=== PATIENT | female | born 1970 | race Caucasian/White ===

== ENCOUNTER 2021-11-22 15:53 | Outpatient (CLI) | payer OTHER, MEDICAID, SELFPAY ==
[2021-11-22 21:34] LABS: Albumin* 4.4 g/dL (3.3-5.0); Chloride* 103 mmol/L (96-114); Sodium* 140 mmol/L (135-149)
[2021-11-22 21:37] LABS: Alkaline Phosphatase* 62 U/L (40-150); Aspartate Amino Transferase* 23 U/L (12-35); Bilirubin Total* 0.3 mg/dL (0.1-1.5); Blood Urea Nitrogen* 13 mg/dL (7-30); Carbon Dioxide* 30 mmol/L (20-32); Creatinine* 0.9 mg/dL (0.5-1.5); Estimated Glomerular Filt Rate 77 ml/min; Glucose* 110 mg/dL (60-115); Total Protein* 7.3 g/dL (6.0-8.3)
[2021-11-22 21:38] LABS: Alanine Aminotransferase* 23 U/L (4-35); Calcium* 9.7 mg/dL (8.4-10.6)
== END 2021-11-22 15:54 | disposition home or self-care (01) ==
LOC: LKVREF 15:54
PROVIDERS: PCP Physician Assistant Medical; Visit Provider Physician Assistant Medical
DX: E11.9 Type 2 diabetes mellitus without complications (principal); M79.7 Fibromyalgia; M62.838 Other muscle spasm; R10.9 Unspecified abdominal pain; F41.9 Anxiety disorder, unspecified
CPT/HCPCS: 80053; 87086

== ENCOUNTER 2022-02-06 08:51 | Outpatient (CLI) | payer OTHER, MEDICAID, SELFPAY ==
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
--- OUTSIDE RECORDS SUMMARY | 2022-02-06 08:54 | XMS_ITS | Encounter Summary ---
:1970 Author Organization [place] Address [address] [place] [address] Care Team Providers Name Role Phone Lyndsey Guzman MD Primary Care Provider Carine Smallwood MD Unavailable Encounter Details Date Type Department Care Team Description 10/05/2020 Travel Social History Tobacco Use Types Packs/Day Years Used Date Smoking Tobacco: Every Day Cigarettes 1 10 Smokeless Tobacco: Never Alcohol Use Standard Drinks/Week Comments Yes 0 (1 standard drink = 0.6 oz pure alcoho l) Social drink/monthly Sex Assigned at Date Recorded Not on file COVID-19 Exposure Response Date Recorded In the last month, have you been in contact with No / Unsure 10/05/2020 9:13 AM CDT someone who was confirmed or suspected to have Coronavirus / COVID-19? documented as of this encounter Plan of Treatment Not on filedocumented as of this encounter Visit Diagnoses Not on filedocumented in this encounter Care Teams Cleat Thrower Relationship Specialty Start Date End Date Lyndsey Guzman MD PCP - General Family Medicine 08/28/20 [facility] [address] [place] [address] Carine Smallwood MD Assigned Surgical Provider 09/17/20 [address] [facility] [address] [place] [address] documented as of this encounter
--- OUTSIDE RECORDS SUMMARY | 2022-02-06 08:54 | XMS_ITS | Encounter Summary ---
:1970 Author Organization [place] Address [address] [place] [address] Care Team Providers Name Role Phone Lyndsey Guzman MD Primary Care Provider Carine Smallwood MD Unavailable Encounter Details Date Type Department Care Team Description 10/13/2020 Travel Social History Tobacco Use Types Packs/Day [...] been in contact with No / Unsure 10/13/2020 12:53 PM CDT someone who was confirmed or suspected to have Coronavirus / COVID-19? documented as of this encounter Plan of Treatment Not on filedocumented as of this encounter Visit Diagnoses Not on filedocumented in this encounter Care Teams Credit Rating Checker Relationship Specialty Start Date End Date Lyndsey Guzman MD PCP - General Family Medicine 08/28/20 [facility] [address] [place] [address] Carine Smallwood MD Assigned Surgical Provider 09/17/20 [address] [facility] [address] [place] [address] documented as of this encounter
--- OUTSIDE RECORDS SUMMARY | 2022-02-06 08:54 | XMS_ITS | Encounter Summary ---
:1970 Author Organization [place] Address [address] [place] [address] Care Team Providers Name Role Phone Lyndsey Guzman MD Primary Care Provider Carine Smallwood MD Unavailable Reason for Visit Reason Comments Post-Op - General Surgery s/p Left thyroid lobectomy, autotransplant of L inferior parathyroid 10/09/20 Encounter Details Date Type Department Care Team Description 10/13/2020 Office Visit [facility] Vee Levy Surgical [facility] MAGALY White visit (Primary Dx) [place] [address] [facility] [address] [facility] [address] [place], [place] [address] [phone] Social History Tobacco Use Types Packs/Day Years Used Date Smoking Tobacco: Every Day Cigarettes 1 10 Smokeless Tobacco: Never Tobacco Cessation: Counseling Given: Yes Alcohol Use Standard Drinks/Week Comments Yes 0 [...] / COVID-19? documented as of this encounter Last Filed Vital Signs Vital Sign Reading Time Taken Comments Blood Pressure 128/88 10/13/2020 12:56 PM CDT Pulse 82 10/13/2020 12:56 PM CDT Temperature - - Respiratory Rate 16 10/13/2020 12:56 PM CDT Oxygen Saturation 96% 10/13/2020 12:56 PM CDT Inhaled Oxygen Concentration - - Weight - - Height - - Body Mass Index - - documented in this encounter Progress Notes Vee Levy PA-C - 10/13/2020 1:00 PM CDT 10/13/2020 [facility] Subjective: Aileen Sloan is here for evaluation of surgical site swelling. She underwent left??thyroid lobectomy with autotransplant of left inferior parathyroid gland by Dr. Smallwood on 10/09/20. She reportsnoticing swelling at the left aspect of her incision yesterday. She states the swelling has increased today and migrated toward the central/right aspect of the incision. She denies any redness or drainage. She denies any difficulty breathing. Her surgical site is tender but not painful, and she is nottaking narcotics. She is not particularly concerned about the swelling, but her mother advised that she be evaluated for possible infection before the weekend. The patient also has been experiencing sore throat and general not feeling well since preop, denies worsening since surgery. Objective: Neck incision: + healing yellow ecchymosis surrounding incision, no erythema. Incision is clean, dry, well-approximated. There is a rope-shaped soft swelling along incision, + mildly tender. Aspirationwas attempted due report of increasing size of swelling, no fluid collection was found. Assessment: Postop swelling vs loculated seroma/hematoma S/p left??thyroid lobectomy with autotransplant of left inferior parathyroid gland Plan: Continue ice to incision. Discussed that there are no signs of infection. Monitor over the weekend, go to ER if difficulty breathing. 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 RTC 1-[address] Smallwood for regular follow up Vee Levy PA-C Please route or send letter to: *None* documented in this encounter Plan of Treatment Not on filedocumented as of this encounter Visit Diagnoses Diagnosis Surgical followup visit - Primary Follow-up examination, following unspeci fied surgery documented in this encounter Care Teams Sealer Operator Relationship Specialty Start Date End Date Lyndsey Guzman MD PCP - General Family Medicine 08/28/20 [facility] [address] [place] [address] Carine Smallwood MD Assigned Surgical Provider 09/17/20 [facility] [address] [place] [address] documented as of this encounter
--- OUTSIDE RECORDS SUMMARY | 2022-02-06 08:54 | XMS_ITS | Encounter Summary ---
:1970 Author Organization [place] Address [address] [place] [id number] Care Team Providers Name Role Phone Lyndsey Guzman MD Primary Care Provider Vee Levy PA-C Unavailable [phone] Reason for Visit Reason Comments Surgical Followup Encounter Details Date Type Department Care Team Description 11/01/2020 Office Visit [facility] Carine Smallwood, Post operative state [facility] (Primary Dx) [address] [facility] [address] [place] [address] [phone] Social History Tobacco Use Types Packs/Day Years [...] been in contact with No / Unsure 11/01/2020 1:18 PM CDT someone who was confirmed or suspected to have Coronavirus / COVID-19? documented as of this encounter Last Filed Vital Signs Vital Sign Reading Time Taken Comments Blood Pressure 128/88 11/01/2020 1:39 PM CDT Pulse 80 11/01/2020 1:39 PM CDT Temperature - - Respiratory Rate 16 11/01/2020 1:39 PM CDT Oxygen Saturation 99% 11/01/2020 1:39 PM CDT Inhaled Oxygen Concentration - - Weight 81.2 kg (179 lb) 11/01/2020 1:39 PM CDT Height 167.6 cm (5' 6) 11/01/2020 1:39 PM CDT Body Mass Index 28.89 11/01/2020 1:39 PM CDT documented in this encounter Progress Notes Carine Smallwood MD - 11/01/2020 1:30 PM CDT Progress Note/Post-op Follow up: Aileen is here for follow up after left thyroid lobectomy and 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 She reports good energy. Denies numbness or tingling. Incisional discomfort is nearly resolved. Smoking History: currently smokes. Advised about smoking cessation. Physical Exam: BP 128/88 Pulse 80 Resp 16 Ht 1.676 m (5' 6) Wt 81.2 kg (179 lb) SpO2 99% BMI 28.89 kg/m?? General: Appears well, in no acute distress HEENT: Chvostek's sign is not done. Neck: Incision site healing nicely, Healing ridge is minimal. Range of motion is normal. Neuro: Voice is Normal. 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 Assessment and Plan: Aileen is doing well after left thyroid lobectomy. I recommend a follow up with Dr. Sylvia Rodriguez in the next few weeks for follow up. I would be happy to see her if there are any ongoing issues, but currently, there are no signs of post-operative complications. Carine Smallwood MD Please route or send letter to: Primary Care Provider (PCP) and Referring Provider 11/01/2020 Dr. Sylvia Rodriguez Re: Aileen Noland Nathalia Dear Sylvia : I saw Aileen back today following left thyroid lobectomy. She feels fine. The incision site is healing nicely. Her voice is normal. She reports reasonable energy. I have included the operative and pathology reports for your records. As you can see, the pathology is benign. She will schedule a follow-up appointment to see you sometime in the next month for followup. Thank you for asking me to see this delightful patient. Please contact me if you have any questions regarding her surgical care. Sincerely, Carine Smallwood MD Please send letter to: Referring Provider/Nursing Home Social Worker and PCP. Operative and pathology report to Dr. Sylvia Rodriguez please. 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
--- OUTSIDE RECORDS SUMMARY | 2022-02-06 08:54 | XMS_ITS | Encounter Summary ---
:1970 Author Organization [place] Address [address] [place] [address] Care Team Providers Name Role Phone Lyndsey Guzman MD Primary Care Provider Carine Smallwood MD Unavailable Encounter Details Date Type Department Care Team Description 10/05/2020 Orders Only [facility] for screening [facility] for other viral diseases [address] [place] [phone] Social History Tobacco Use Types Packs/Day Years [...] encounter Procedures Procedure Name Priority Date/Time Associated Diagnosis Comme nts SARS-COV-2 Routine 10/05/2020 9:10 AM Encounter for Results for this (COVID-19) VIRUS CDT screening for other proc edure are in RT-PCR viral diseases the results section. COVID-19 VIRUS Routine 10/05/2020 9:10 AM Encounter for Result s for this (CORONAVIRUS) BY CDT screening for other proc edure are in PCR viral diseases the results section. documented in this encounter Results SARS-CoV-2 COVID-19 Virus (Coronavirus) by PCR (10/05/2020 9:10 AM CDT) [facility] Method Time Signature SARS-CoV-2 Nasopharyngeal 10/05/2020 INFECTIOUS Virus 9:21 PM CDT DISEASES Specimen DIAGNOSTIC Source LABORATORY, [facility] SARS-CoV-2 NEGATIVE 10/05/2020 INFECTIOUS PCR Result 9:21 PM CDT DISEASES DIAGNOSTIC LABORATORY, [facility] Comment: SARS-CoV2 (COVID-19) RNA not de tected, presumed negative. SARS-CoV-2 PCR Testing was performed using the [employer] Latin SARS-CoV-2 Assay on the [employer] Instrument System. 10/05/2020 9:21 PM INFECTIO US DISEASES Comment Additional information about this Emergency Use Authorization (EUA) assay can be found via CDT DIAGNOSTIC the Lab Guide. LABORATORY, [facility] Comment: This test should be ordered for the dete ction of SARS-CoV-2 in individuals who meet SARS-CoV-2 clinical and/or epidemi ological criteria. Test performance is unknown in asymptomatic patients. This test is for in vitro diagnostic use under the FDA EUA for laboratories certified under CLIA to perform high com plexity testing. This test has not been FDA cleared or approved. A negative result does not rule out the presence of PCR inhibitors in the specimen or target RNA in concentration below the limit of detection for the assay. The possibility of a false negati ve should be considered if the patient's recent exposure or clinical pr esentation suggests COVID-19. This test was validated by the [facility] Infect[facility] Diagnostic [facility]. This laboratory i s certified under the Clinical Laboratory Improvement Amendments of 198 8 (CLIA-88) as qualified to perform high complexity laboratory testing. Specimen (Source) Anatomical Collection Method Collection Time Re ceived Time Location / / Volume Laterality Specimen from 10/05/2020 9:10 10/05/2020 nasopharyngeal AM CDT 9:15 AM CDT structure (specimen) Carine Smallwood MD LAB - MICRO GENERAL ORDERABL ES Performing Organization Address City/State/ZIP Code Phon e Number INFECTIOUS DISEASES DIAGNOSTIC [address] [facility] [address] [address] LABORATORY, [facility] Asymptomatic COVID-19 Virus (Coronavirus) by PCR (10/05/2020 9:10 AM CDT) Component Value Ref Test Analysis Performed At Patholo gist Range Method Time Signature COVID-19 Nasopharyngeal 10/05/2020 [place] Virus PCR to 9:16 AM CDT CLINICS [facility] [place] Source COVID-19 Test received-See 10/05/2020 INFECTIOUS Virus PCR to reflex to IDDL 12:58 PM DISEASES [facility] [place] - test SARS CoV2 CDT DIAGNOSTIC Result (COVID-19) Virus LABORATORY, RT-PCR [facility] Specimen (Source) Anatomical Collection Method Collection Time Re ceived Time Location / / Volume Laterality Specimen from 10/05/2020 9:10 10/05/2020 nasopharyngeal AM CDT 9:15 AM CDT structure (specimen) Carine Smallwood MD LAB - MICRO GENERAL ORDERABL ES Performing Organization Address City/State/ZIP Code Phon e Number INFECTIOUS DISEASES DIAGNOSTIC [address] [facility], [address] [address] LABORATORY, [facility] [address] 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
--- OUTSIDE RECORDS SUMMARY | 2022-02-06 08:54 | XMS_ITS | Encounter Summary ---
:1970 Author Organization [facility] Address [address] [place] [id number] Care Team Providers Name Role Phone Lyndsey Guzman MD Primary Care Provider Carine Hester MD Unavailable Reason for Visit Auth/Cert Specialty Diagnoses / Procedures Referred By Contact Refer red To Contact Surgery Diagnoses Thyroid nodule Thyroid nodule [E04.1] Rh Periop Services Procedures HC THYROIDECTOMY HC THYROIDECTOMY,MALIG,LTD NECK SURG left thyroid lobectomy, possible total thyroidectomy [address] [place], [place] [address] Phone: Fax: Referral ID Status Reason Start Date Expiration Date Visits Requ ested Visits Authorized [id number] 1 1 Encounter Details Date Type Department Care Team Description 10/09[facility]2020 [facility]; [facility]10[facility]2020 [facility] Blayne Hawk MD Thyroid nodule Dept [address] [facility] [address] [place] [phone] Social History Tobacco Use Types Packs/Day Years [...] Sign Reading Time Taken Comments Blood Pressure 93/57 10/10/2020 8:16 AM CDT Pulse 90 10/10/2020 8:16 AM CDT Temperature 36.8 ??C (98.3 ??F) 10/10/2020 8:16 AM CDT Respiratory Rate 16 10/10/2020 8:16 AM CDT Oxygen Saturation 94% 10/10/2020 8:16 AM CDT Inhaled Oxygen Concentration - - Weight 81.2 kg (179 lb) 10/09/2020 9:24 AM CDT Height 167.6 cm (5' 6) 10/09/2020 9:24 AM CDT Body Mass Index 28.89 10/09/2020 9:24 AM CDT documented in this encounter Discharge Instructions Discharge InstructionsKellie Rankin PA-C - 10/10/2020 9:28 AM CDT HOME CARE FOLLOWING THYROIDECTOMY/LOBECTOMY Drs. Yulisa Mayes, Sherry Bell Special instructions for Ruby Christian: --Discharge medications: Washington --Follow up appointment with Dr. Hester in 1-3 weeks, follow up with [facility] in 4-6 weeks. INCISIONAL CARE: ??? You may remove the dressing 24 hours after the drain was removed; replace the gauze if it becomes soiled. ??? You may expect a small amount of drainage from your previous drain site. ??? After removing the dressing, you may shower. Do not submerse incision in water for 1 week. ??? Sutures will absorb and do not need to be removed. ??? Leave the steri-strips (white paper tapes) in place until they fall off, or remove at 2 weeks after surgery. ??? A lump/ridge under the incision is normal and will gradually resolve. ACTIVITY: Light Activity -- you may immediately be up and about as tolerated. Driving -- you may drive when comfortable and off narcotic pain medications. Light Work -- resume when comfortable off pain medications. (If you can drive, you probably can work.) Strenuous Work/Activity -- limit lifting to less than 10 pounds for 1 week. Progressively increase with time. Active Sports (running, biking, etc.) -- cautiously resume after 1 week. DIET: No restrictions. Increased fluid intake is recommended. While taking pain medications, increase dietary fiber or add a fiber supplementation like Metamucil or Citrucel to help prevent constipation - a possible side effect of pain medications. DISCOMFORT: Use pain medications as prescribed by your surgeon. Take the pain medication with some food, when possible, to minimize side effects. Intermittent use of ice packs may help during the first 48 hours. Expect gradual improvement. CALCIUM SUPPLEMENTATION: Some patients are prescribed to take a calcium supplement after surgery. Please take as prescribed. Watch for symptoms of numbness or tingling around the mouth or in the fingers or toes. This may be a sign of a low calcium level. If this happens, take an extra dose of your calcium supplement. If the symptoms persist, please contact the office. You may need to have your blood calcium level checked by doing a simple blood test. We may also need to make adjustments in your calcium dose. Not all patients require calcium monitoring and supplementation post-op. If your calcium was monitored and stabilized after surgery, the risk of having issues with low calcium once you are home is very small. RETURN APPOINTMENT: Schedule a follow-up visit 1-3 weeks post-op (you may do this any time after surgery is scheduled). Office CONTACT US IF THE FOLLOWING DEVELOPS: 1. A fever that is above 101?? 2. If there is a large amount of drainage, bleeding, or swelling. 3. Severe pain that is not relieved by your prescription. 4. Drainage that is thick, cloudy, yellow, green or white. 5. Any other questions documented in this encounter Medications at Time of Discharge Medication Sig Dispensed Refills Start Date End Date albuterol (PROAIR HFA, Inhale 2 puffs into 0 PROVENTIL HFA, VENTOLIN the lungs every 6 HFA) 108 (90 BASE) hours MCG/ACT inhaler CONTOUR NEXT TEST test 2 times daily 0 09/02/2020 strip diazepam (VALIUM) 5 MG Take 5 mg by mouth 0 tablet every 6 hours as needed for anxiety Metoprolol Succinate Take 50 mg by mouth 0 (TOPROL XL PO) daily Microlet Lancets MISC USE TO TEST BLOOD 0 021 SUGAR TWICE DAILY VALTREX 1 GM OR 2 po q 12 hours x 1 40 5 04/25/2005 TABSIndications: Herpes day at first sign of simplex without mention lesion of complication, Other acne HYDROcodone-acetaminophe Take 1-2 tablets by 16 tablet 0 11/28/2020 n (NORCO) 5-325 MG mouth every 4 hours tabletIndications: as needed for Thyroid nodule moderate to severe pain documented as of this encounter Progress Notes Kellie Rankin PA-C - 10/10/2020 9:29 AM CDT [facility] General Surgery Progress Note Assessment and Plan: Assessment: Ruby Christian is a 50 year old female 1 Day Post-Op from Procedure(s): left thyroid lobectomy, autotransplantation of left inferior parathyroid gland - doing well Plan: Pain mgmt: Washington Diet: regular IVFs: saline lock Activity: as tolerated Dispo: home today, follow up with Dr Hester in 2-3 weeks Interval History: Pt sitting up in bed. Complains of mild throat pain, controlled with Washington. Also feels very anxious and wants to go home. Tolerating diet, no difficulties with swallowing. No numbness/tingling in fingers, toes or lips. Discharge instructions were discussed. Physical Exam: Temp: 98.3 ??F (36.8 ??C) Temp src: Oral BP: 93/57 Pulse: 90 Resp: 16 SpO2: 94 % O2 Device: None (Room air) Oxygen Delivery: 2 LPM I/O last 3 completed shifts: In: 830 [P.O.:30; I.V.:800] Out: 250 [Urine:200; Drains:40; Blood:10] Constitutional: alert and no distress Neck: no bruising or swelling. Drain removed intact without complications. Incision: steri strip I in place - clean/dry/intact Kellie Rankin PA-C documented in this encounter H&P Notes Jose Cabrera DO - 10/09/2020 9:55 AM CDT I have reviewed the surgical (or preoperative) H&P that is linked to this encounter, and examined the patient. There are no significant changes Source Note - Scan, Provider - 10/06/2020 10:22 AM CDT Jose Cabrera DO - 10/09/2020 9:52 AM CDT I have reviewed the surgical (or preoperative) H&P that is linked to this encounter, and examined the patient. There are no significant changes Source Note - Scan, Provider - 10/06/2020 10:22 AM CDT documented in this encounter Miscellaneous Notes Plan of Care - Mavis Torrez RN - 10/10/2020 8:30 AM CDT PRIMARY DIAGNOSIS: Thyroid OUTPATIENT/OBSERVATION GOALS TO BE MET BEFORE DISCHARGE: 1. Stable vital signs Yes 2. Tolerating diet:Yes 3. Pain controlled with oral pain medications: Yes 4. Positive bowel sounds: Yes 5. Voiding without difficulty: Yes 6. Able to ambulate: Yes 7. Provider specific discharge goals met: Yes Briquette Machine Operator Nurse Safe discharge environment identified: Yes Barriers to discharge: No Entered by: Mavis Torrez 10/10/2020 BP 93/57 (BP Location: Right arm) Pulse 90 Temp 98.3 ??F (36.8 ??C) (Oral) Resp 16 Ht 1.676 m (5' 6) Wt 81.2 kg (179 lb) SpO2 94% No BMI 28.89 kg/m?? VSS and on room air. OLIVIER removed by JEANIE this morning. Patient's BP was soft this AM, metoprolol held. [facility]'s sent down to [facility]. Patient will discharge when meds are sent to the unit. Please review provider order for any additional goals. Nurse to notify provider when observation goals have been met and patient is ready for discharge. Plan of Care - Heide Huber RN - 10/10/2020 4:42 AM CDT PRIMARY DIAGNOSIS: LEFT THYROID LOBECTOMY OUTPATIENT/OBSERVATION GOALS TO BE MET BEFORE DISCHARGE: 1. Stable vital signs Yes, low BP at midnight. Provider paged and no new orders 2. Tolerating diet:Yes 3. Pain controlled with oral pain medications: No 4. Positive bowel sounds: Yes 5. Voiding without difficulty: Yes 6. Able to ambulate: Yes 7. Provider specific discharge goals met: No - pain control Vitals are Temp: 98.4 ??F (36.9 ??C) Temp src: Oral BP: (!) 84/53 Pulse: 62 Resp: 18 SpO2: 98 %. Patient is Alert and Oriented x4. They are SBA with no assistive devices. Pt is a Regular diet and is tolerating well. They are complaining of 9/10 pain in their anterior neck but appears comfortable. 2 tabs norco given at 0137 Patient has Lactated Ringer's running at 100 mL per hour. OLIVIER drain intact and is draining small amount of serosanguineous, bright red bloody fluid. Dressing is CDI. General surgery following. Continue to monitor and provide supportive cares. Briquette Machine Operator Nurse Safe discharge environment identified: Yes Barriers to discharge: Yes Entered by: Heide Huber 10/10/2020 4:42 AM Please review provider order for any additional goals. Nurse to notify provider when observation goals have been met and patient is ready for discharge. Plan of Care - Heide Huber RN - 10/10/2020 12:32 AM CDT PRIMARY DIAGNOSIS: LEFT THYROID LOBECTOMY OUTPATIENT/OBSERVATION GOALS TO BE MET BEFORE DISCHARGE: 1. Stable vital signs Yes, low BP at midnight. Provider paged and no new orders 2. Tolerating diet:Yes 3. Pain controlled with oral pain medications: No 4. Positive bowel sounds: Yes 5. Voiding without difficulty: Yes 6. Able to ambulate: Yes 7. Provider specific discharge goals met: No - pain control Vitals are Temp: 98.3 ??F (36.8 ??C) Temp src: Oral BP: (!) 85/57 Pulse: 69 Resp: 18 SpO2: 97 %. Patient is Alert and Oriented x4. They are SBA with no assistive devices. Pt is a Regular diet and is tolerating well. They are complaining of 9/10 pain in their anterior neck but appears comfortable. Currently requesting pain medication but is not due yet. Patient has Lactated Ringer's running at 100mL per hour. OLIVIER drain intact and is draining small amount of serosanguineous, bright red bloody fluid. Dressing is CDI. General surgery following. Continue to monitor and provide supportive cares. Briquette Machine Operator Nurse Safe discharge environment identified: Yes Barriers to discharge: Yes Entered by: Heide Huber 10/10/2020 12:35 AM Please review provider order for any additional goals. Nurse to notify provider when observation goals have been met and patient is ready for discharge. Provider Notification - Heide Huber RN - 10/10/2020 12:15 AM CDT Blood pressure 83/48, 82/44, 85/57. Patient not upon standing. Currently on LR at 100 mL / hr. Provider paged. Update: No new orders. Continue to monitor as long as patient stays asymptomatic. Plan of Care - Denisse Manley RN - 10/09/2020 9:31 PM CDT PRIMARY DIAGNOSIS: LEFT THYROID LOBECTOMY, AUTOTRANSPLANT OF LEFT INFERIOR PARATHYROID GLAND OUTPATIENT/OBSERVATION GOALS TO BE MET BEFORE DISCHARGE: 1. Stable vital signs Yes 2. Tolerating diet:Yes 3. Pain controlled with oral pain medications: No 4. Positive bowel sounds: Yes 5. Voiding without difficulty: Yes 6. Able to ambulate: Yes 7. Provider specific discharge goals met: No Blood pressure 117/76, pulse 85, temperature 97.4 ??F (36.3 ??C), temperature source Oral, resp. rate 18, height 1.676 m (5' 6), weight 81.2 kg (179 lb), SpO2 97 %, not currently . Vital signs remain stable. Capnography discontinued per patients wishes. Anterior neck dressing dry, intact. OLIVIER draining small amounts of serosangenous drainage. Patient intermittently c/o of Anterior neck pain in spite of Dilaudid and Washington given at ordered intervals. Patient consistently rating her pain a 9 on a 1-10 scale, however appears comfortable. Additional conversation regarding realistic expectations of pain medications an tolerable discomfort. Patient is an assist of one, ambulating to the bathroom prn. Maintenance IV continues at 100 mls/hour. Plan: Continueto provide supportive cares. Briquette Machine Operator Nurse Safe discharge environment identified: Yes Barriers to discharge: Yes, unless medically cleared. Entered by: Denisse Manley 10/09/2020 9:32 PM Please review provider order for any additional goals. Nurse to notify provider when observation goals have been met and patient is ready for discharge. Plan of Care - Denisse Manley RN - 10/09/2020 7:46 PM CDT PRIMARY DIAGNOSIS: LEFT THYROID LOBECTOMY, AUTOTRANSPLANT OF LEFT INFERIOR PARATHYROID GLAND OUTPATIENT/OBSERVATION GOALS TO BE MET BEFORE DISCHARGE: 1. Stable vital signs Yes 2. Tolerating diet:Yes 3. Pain controlled with oral pain medications: No 4. Positive bowel sounds: Yes 5. Voiding without difficulty: Yes 6. Able to ambulate: Yes 7. Provider specific discharge goals met: No Blood pressure 119/74, pulse 87, temperature 97.2 ??F (36.2 ??C), temperature source Oral, resp. rate 15, height 1.676 m (5' 6), weight 81.2 kg (179 lb), SpO2 95 %, not currently . VSS LS clear, adequate sats on room air. ETCO2 41, IPI 10. Anterior neck dressing dry, intact. OLIVIER draining small amounts of serosanguenous drainage. Patient tolerating evening meal tray without nausea or emesis. Patient c/o of break through pain after Washington given. Dilaudid given per order. Patient eduction given regarding pain medication expectations. Patient is a standby assist, ambulating to the bathroom prn. Plan: Continue to provide supportive cares. Briquette Machine Operator Nurse Safe discharge environment identified: Yes Barriers to discharge: Yes, unless medically cleared. Entered by: Denisse Manley 10/09/2020 7:48 PM Please review provider order for any additional goals. Nurse to notify provider when observation goals have been met and patient is ready for discharge. Pharmacy-Admission Medication History - Jorge L Dan [facility] - 10/09/2020 3:31 PM CDT Medication history and patient interview completed by pharmacy clinical specialist/student or pre-admitting RN. Reviewed by pharmacist, including [employer] dispense records, [facility] Everywhere, and chart review. Jorge L Dan, Pharm.D., [facility] Nurse Complete Set By: Rupali Silver RN at 10/02/2020 4:58 PM Prior to Admission medications Medication Sig Last Dose Taking? Auth Provider albuterol (PROAIR HFA, PROVENTIL HFA, VENTOLIN HFA) 108 (90 BASE) MCG/ACT inhaler Inhale 2 puffs into the lungs every 6 hours Past Week at Unknown time Yes Reported, Patient diazepam (VALIUM) 5 MG tablet Take 5 mg by mouth every 6 hours as needed for anxiety Past Week at Unknown time Yes Reported, Patient Metoprolol Succinate (TOPROL XL PO) Take 50 mg by mouth daily 10/09/2020 at Unknown time Yes Reported, Patient CONTOUR NEXT TEST test strip 2 times daily Reported, Patient Microlet Lancets MISC USE TO TEST BLOOD SUGAR TWICE DAILY Reported, Patient VALTREX 1 GM OR TABS 2 po q 12 hours x 1 day at first sign of lesion More than a month at Unknown time Devin Britt, DO Op Note - Carine Hester MD - 10/09/2020 12:24 PM CDT General Surgery Operative Note PREOPERATIVE DIAGNOSIS: Thyroid nodule,left [E04.1] POSTOPERATIVE DIAGNOSIS: Thyroid nodule,left follicular neoplasm. PROCEDURE: Left Thyroid Lobectomy, autotransplant of left inferior parathyroid gland. ANESTHESIA: General. PREOPERATIVE MEDICATIONS: Ancef 2 gm SURGEON: Carine Hester MD CITY DISTRIBUTION CLERK: Kellie Rankin PA-C, - the physician assistant press operator was medically necessary in providing adequate exposure in the operating field, maintaining hemostasis, cutting suture, clamping and ligatingblood vessels, and visualization of the anatomic structures throughout the surgical procedure. ESTIMATED BLOOD LOSS: 10 cc INDICATIONS: Rbuy Christian is a 50 year old female with a thyroid nodule found recently on imaging for her lungs. A fine needle aspiration biopsy showed that it is a follicular lesion. It is 1.8 cm and she is here today for left thyroid lobectomy, possible total thyroidectomy. PROCEDURE: Ruby was placed supine, head and neck in extension and a bump between the scapulas. Tansverse cervical neck creases had been marked in the preinduction area and the one most suitable was utilized for exposure. Superior and inferior skin flaps raised. Midline fascia opened and reflected to the left. The left lobe was normal except for a small lower pole nodule. The upper pole was taken down by double ligation and division. Middle thyroidal vein was ligated and the inferior pole veins ligated and the gland reflected medially, up and out of the incision. Posterior dissection was then done under direct vision after the gland was reflected medially. The superior parathyroid and the recurrent laryngeal nerve were seen and preserved during that posterior dissection. The ligament of Byrne was taken down meticulously. The inferior thyroidal artery was ligated and divided. The inferior parathyroid was getting its blood supply thru the thyroid lobe and had to be transplanted. We biopsied it and placed it in cool saline until we could confirm that it was parathyroid tissue. Once we dissectedacross the anterior trachea, we divided through the isthmus and frozen section confirmed a benign appearing follicular neoplasm. We then transplanted the left inferior parathyroid gland by mincing it into tiny fragments and placing these in pockets created in the left sternocleidomastoid muscle. The site was marked with 5-0 Prolene suture. We then irrigated the site, inspected for hemostasis and closed over a 10 round OLIVIER drain with running 3-0 Vicryl for the midline fascia, interrupted for platysma and 4-0 subcuticular Monocryl for skin. The patient was transferred to recovery in good condition. INTRAOPERATIVE FINDINGS: 1. Thyroid benign appearing by frozen section 2. Left recurrent laryngeal nerve seen and preserved. Function confirmed by nerve monitor. 3. Both left sided parathyroid glands seen and the left inferior parathyroid gland was transplanted into the left sternocleidomastoid. 4. Nodes are grossly normal. Specimens: ID Type Source Tests Collected by Time Destination A : Biopsy of Left Neck Nodule - question parathyroid Tissue Neck SURGICAL PATHOLOGY EXAM Carine Hester MD 10/09/2020 11:51 AM B : Left Thyroid Lobe (suture peterson superior pole) Tissue Parathyroid SURGICAL PATHOLOGY EXAM Carine Hester MD 10/09/2020 12:01 PM BREVISED : Left Thyroid Lobe (suture peterson superior pole) Tissue Thyroid, left SURGICAL PATHOLOGY EXAM Carine Hester MD 10/09/2020 12:01 PM Carine Hester MD documented in this encounter Plan of Treatment Not on filedocumented as of this encounter Procedures Procedure Name Priority Date/Time Associated Comments Diagnosis GLUCOSE BY METER Routine 10/10/2020 5:29 AM Thyroid nodule Res ults for this CDT procedure are i n the results section. SURGICAL PATHOLOGY STAT 10/09/2020 11:51 Resul ts for this EXAM AM CDT procedure are i n the results section. EKG 12-LEAD, TRACING Routine 10/09/2020 10:21 Res ults for this ONLY AM CDT procedure are i n the results section. THYROIDECTOMY Routine 10/09/2020 9:23 AM Thyroid nodule CDT HCG QUALITATIVE URINE STAT 10/09/2020 9:15 AM Thyroid nodul e Results for this CDT procedure are i n the results section. documented in this encounter Results (ABNORMAL) Glucose by meter (10/10/2020 5:29 AM CDT) P athologist Signature Glucose 128 (H) 70 - 99 10/10/2020 POINT OF CARE mg/dL 5:35 AM CDT TEST, GLUCOSE Specimen Anatomical Collection Method Collection Time Receive d Time (Source) Location / / Volume Laterality 10/10/2020 5:29 AM 5:35 CDT AM CDT Carine Hester MD LAB - BEAKER POCT Performing Organization Address City/State/ZIP Code Phon e Number FV POINT OF CARE TEST, GLUCOSE POINT OF CARE TEST, GLUCOSE Surgical pathology exam (10/09/2020 11:51 AM CDT) Component Value Ref Test Analysis Performed At Patholo gist Range Method Time Signature Copath Patient Name: RUBY CHRISTIAN Report MR#: [id number] Specimen #: [id number] Collected: 10/09/2020 Received: 10/09/2020 Reported: 10/10/2020 17:28 Ordering Phy(s): CARINE HESTER For improved result formatting, select 'View Enhanced Report Format' under Linked Documents section. SPECIMEN(S): A: Biopsy of left neck nodule-question parathyroid B: Left thyroid lobe FINAL DIAGNOSIS: A: Left neck nodule,? Parathyroid, biopsy- - Consistent with normocellular parathyroid tissue. 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 Ne gative for malignancy. Electronically signed out by: Melissa Kent M.D. CLINICAL HISTORY: Thyroid nodule. GROSS: A. The specimen is received fresh for frozen section, labele d with the patient's name and date of , and designated biopsy of left neck nodule-question parathyroid . It consists of a 7 mg, 0.4 x 0.2 x 0.2 cm red-winchester soft tissue fragment. Entirely submitted on one [facility] k for frozen section analysis and resubmitted for permanent sections in block A1FS. B. The specimen is received fresh for frozen section, labele d with the patient's name and date of , and designated left thyroid lobe (suture peterson superior pole). It consists of a 7.7 g left thyroid lobectomy specimen measuring 4.2 cm superior to inferior x 2.7 cm medi al to lateral x 1.5 cm anterior to posterior. The capsular surface is intact and is inked as follows: Blue - Anterior Black - Posterior Chandler - Isthmic Margin The specimen is serially sectioned from superior to inferior , revealing a 1.4 x 1.3 x 1.0 cm winchester-white, grossly encapsulated, focally calcified nodule within the in ferior pole. The nodule focally abuts the posterior capsular surface and measures 0.3 cm from the ante rior capsular surface and 1.2 cm from the isthmic margin. A key account representative section is submitted on one janice f or frozen section analysis and resubmitted for permanent sections in block B1FS. The remaining parenchyma i s grossly remarkable. Advertising Account Executive sections including the entire nodule are submitted. Summary of Sections: B1FS - frozen section B2-B4 - remaining nodule B5 - key account representative uninvolved superior and middle poles (Di ctated by: JEANIE Andrew([facility]) 10/09/2020 12:28 PM) INTRAOPERATIVE CONSULTATION: Frozen section diagnoses: A: Biopsy of left neck nodule-question parathyroid: Parathyr oid tissue identified. IM. B: Left thyroid lobe: Follicular lesion, defer to permanents for complete evaluation of capsule. IM. MICROSCOPIC: A formal microscopic exam is performed. Specimen B is seen in intradepartmental consultation. A smal l fragment of parathyroid tissue is seen adherent to the thyroid lobe capsule. The technical component of this testing was completed at the [facility], with the professional compo nent performed at the [facility], [address] [place] [address] ??[phone] ([phone]) CPT Codes: A: 38352-OM2, 57286-GK B: 07613-KN0, 40115-XY COLLECTION SITE: Client: [facility] Location: [facility] (R) Specimen Anatomical Location Collection Method Collection Time Received Time (Source) / Laterality / Volume Tissue NECK STRUCTURE / 10/09/2020 11:51 Unknown AM CDT Tissue specimen PARATHYROID 10/09/2020 12:01 (specimen) STRUCTURE / Unknown PM CDT Tissue specimen STRUCTURE OF LEFT 10/09/2020 12:01 (specimen) LOBE OF THYROID PM CDT GLAND / Unknown Narrative This result has an attachment that is no t available. Carine Hester MD LAB - BEAKER AP Performing Organization Address City/State/ZIP Code Phon e Number COPATH EKG 12-lead, tracing only (10/09/2020 10:21 AM CDT) Patholo gist Method Time Signature Interpretation ECG Click View RADIOLOGY Image link RESULTS to view waveform and result Specimen (Source) Anatomical Collection Method Collection Time Re ceived Time Location / / Volume Laterality 10/09/2020 10:21 AM CDT Preston Pike MD ECG ORDERABLES Performing Organization Address City/State/ZIP Code Phon e Number RADIOLOGY RESULTS HCG qualitative urine (10/09/2020 9:15 AM CDT) P athologist Signature HCG Qual Urine Negative NEG^Negati 10/09/2020 [facility] 9:47 AM CDT [facility] Comment: This test is for screening purposes. ??R esults should be interpreted along with the clinical picture. ??Confirmation te sting is available if warranted by ordering [id number], HCG Quantitative Pregna ncy. Specimen Anatomical Collection Method Collection Time Receive d Time (Source) Location / / Volume Laterality Urine URINE SPECIMEN / 10/09/2020 9:15 AM 10/09 9:37 Unknown CDT AM CDT Preston Pike MD LAB - URINE ORDERABLES Performing Organization Address City/[facility]/ZIP [facility] Phon e Number [facility] [address] [address] [facility] [address] [phone] documented in this encounter Visit Diagnoses Diagnosis Thyroid nodule - Primary Nontoxic uninodular goiter Thyroid nodule Nontoxic uninodular goiter documented in this encounter Admitting Diagnoses Diagnosis Thyroid nodule Nontoxic uninodular goiter documented in this encounter Administered Medications Inactive Administered Medications - up to 3 most recent administrations Medication Order MAR Action Action Date Dose Rate Site fentaNYL (PF) (SUBLIMAZE) Given 10/09/2020 1:03 PM CDT 50 mcg injection 25-50 mcg 25-50 mcg, Intravenous, EVERY 2 MIN PRN, other, acute pain while in PACU., Starting on Fri10/09/20 at 1248, MAX cumulative dose = 250 mcg. Use fentaNYL (SUBLIMAZE) initially, as a short acting agent for acute pain control. If insufficient, or a longer acting agent is needed, begin morphine or HYDROmorphone (DILAUDID) if ordered. For ordered IV doses 1-100 mcg give IV Push undiluted over a minimum of 3-5 minutes., PACU Given 10/09/2020 12:53 PM CDT 50 mcg HYDROcodone-acetaminophen (NORCO) 5-325 MG Given 10/10 8:51 AM CDT 2 tablets per tablet 1-2 tablet 1-2 tablet, Oral, EVERY 4 HOURS PRN, other, pain control or improvement in physical function. Hold dose for analgesic side effects., Starting on Fri10/09/20 at 1428, Start with the lowest dose. May adjust dose by 1 tablet every 4 hours as needed. Notify the provider to assess for uncontrolled pain or analgesic side effects. Hold while on IV TELECOMMUNICATIONS PROFESSIONAL or with regular IV opioid dosing. Maximum acetaminophen dose from all sources= 75 mg/kg/day not to exceed 4 grams Given 10/10/2020 1:37 AM CDT 2 tablets Given 10/09/2020 8:37 PM CDT 2 tablets HYDROmorphone (DILAUDID) injection 0.2 m g Given 10/09/2020 6:20 PM CDT 0.2 mg 0.2 mg, Intravenous, EVERY 2 HOURS PRN, other, pain control or improvement in physical function. Hold dose for analgesic side effects., Starting on Fri10/09/20 at 1428, Notify the provider to assess for uncontrolled pain or analgesic side effects. Hold while on IV TELECOMMUNICATIONS PROFESSIONAL or with regular IV opioid dosing. lactated ringers infusion New Bag 10/09/2020 10:06 AM CDT 25 mL/hr at 25 mL/hr, Intravenous, CONTINUOUS, IF patient NOT on dialysis., Pre-procedure, Starting on Fri10/09/20 at 1000, Until Fri10/09/20 at 1239 lactated ringers infusion New Bag 10/10/2020 1:37 AM CDT 100 mL/hr at 100 mL/hr, Intravenous, CONTINUOUS, Starting on Fri10/09/20 at 1430, Until Fri10/10/20 at 1354 Rate/Dose Change 10/09/2020 3:19 PM CDT 100 mL/hr naloxone (NARCAN) injection 0.2 mg 0.2 mg, Intravenous, EVERY 2 MIN PRN, op ioid reversal, Starting on Fri10/09/20 at 1440, Administer intravenous route when available and notify provider when administered. For unintended sedation or respiratory depression if all of the below criteria are met: ~ respiratory rate LES S than or EQUAL to 8. ~SaO2 less than 92% and or/end-tidal CO2 is greater than 50. ~ the patient is receiving an opioid, has unintended sedations assessed as RASS (-3), and is cur rently not on mechanical ventilation. RASS scale moderate (-3) is movement or eye opening to voice but no eye contact. Patient Monitoring Once the patient has demonstrated a response to the naloxone, continue to monitor respiratory rate, depth, oxygen saturation and end-tidal CO2 (if available) every 15 mi nutes x 2, then every 30 minutes x 2, then every 1 hour x 1 after each naloxone dose. Consider tr ansfer to ICU if patient respiratory parameters have not improved after 4 nalox one doses. For ordered IV doses 0.1-2mg give IVP. Give each 0.4mg over 15 seconds in emergency situations. For non-emergent situations further dilu te in 9mL of NS to facilitate titration of response. naloxone (NARCAN) injection 0.2 mg 0.2 mg, Intramuscular, EVERY 2 MIN PRN, opioid reversal, Starting on Fri10/09/20 at 1440, Administer intramuscular if an int ravenous route is not available and notify provider when administered. For unintend ed sedation or respiratory depression if all of the below criteria are met: ~ respiratory rate LESS than or EQUAL to 8. ~SaO2 less than 92% and or/end-tidal CO2 is greater th an 50. ~ the patient is receiving an opioid, has unintended sedations assessed as RASS (-3), and is currently not on mechanical ventilation. RASS scale moderate (-3) is movement or eye opening to voice but no eye contact. Patient Monitoring Once the patient has demonstrated a response to the naloxone, continue to m onitor respiratory rate, depth, oxygen saturation and end-tidal CO2 (if availab le) every 15 minutes x 2, then every 30 minutes x 2, then every 1 hour x 1 after each naloxone dose. Consider transfer to ICU if patient respiratory parameters have not improved after 4 naloxone doses. For ordered IV doses 0.1-2mg give IVP. Give each 0.4mg over 15 seconds in emergency situations. For non -emergent situations further dilute in 9mL of NS to facilitate titration of response. naloxone (NARCAN) injection 0.4 mg 0.4 mg, Intravenous, EVERY 2 MIN PRN, op ioid reversal, Starting on Fri10/09/20 at 1440, Administer intravenous route when available and notify provider when administered. For unintended sedation or respiratory depression if all of the below criteria are met: ~ respiratory rate LES S than or EQUAL to 8. ~ SaO2 less than 92% and or/end-tidal CO2 is greater than 50. ~ the patient is receiving an opioid, has unintended sedation assessed as RASS (-4 ) or (-5) and patient is currently not on mechanical ventilation. RASS scale (-4) is deep sedation with no response to voice but movement or eye opening to physical stimulation. R ASS scale (-5) is unarousable. Patient Monitoring Once the patient has demonstrated a response to the naloxone, continue to monitor respiratory rate, depth, oxygen saturation and end-tidal CO2 (if available) every 15 mi nutes x 2, then every 30 minutes x 2, then every 1 hour x 1 after each naloxone dose. Consider tr ansfer to ICU if patient respiratory parameters have not improved after 4 nalox one doses. For ordered IV doses 0.1-2mg give IVP. Give each 0.4mg over 15 seconds in emergency situations. For non-emergent situations further dilu te in 9mL of NS to facilitate titration of response. naloxone (NARCAN) injection 0.4 mg 0.4 mg, Intramuscular, EVERY 2 MIN PRN, opioid reversal, Starting on Fri10/09/20 at 1440, Administer intramuscular if an int ravenous route is not available and notify provider when administered. For unintend ed sedation or respiratory depression if all of the below criteria are met: ~ res piratory rate LESS than or EQUAL to 8. ~ SaO2 less than 92% and or/end-tidal CO2 is greater daniel n 50. ~ the patient is receiving an opioid, has unintended sedation assessed as RASS (-4) or (-5) and patient is currently not on mechanical ventilation. RA SS scale (-4) is deep sedation with no response to voice but movement or eye opening to physical stimulation. RASS scale (-5) is unarousa ble. Patient Monitoring Once the patient has demonstrated a response to the nalox one, continue to monitor respiratory rate, depth, oxygen saturation and end-tidal CO2 (if availab le) every 15 minutes x 2, then every 30 minutes x 2, then every 1 hour x 1 after each naloxone dose. Consider transfer to ICU if patient respiratory parameters have not improved after 4 naloxone doses. For ordered IV doses 0.1-2mg give IVP. Give each 0.4mg over 15 seconds in emergency situations. For non -emergent situations further dilute in 9mL of NS to facilitate titration of response. ondansetron (ZOFRAN) injection 4 mg 4 mg, Intravenous, EVERY 6 HOURS PRN, nausea, vomiting , Administer over 2-5 Minutes, Starting on Fri10/09/20 at 1428, This is Step 1 of nausea and vomiting management. If nausea not resolved in 15 minutes, go t o Step 2 prochlorperazine (COMPAZINE). Irritant. For ordered IV do ses 0.1-4 mg, give IV Push undiluted over 2-5 minutes. ondansetron (ZOFRAN-ODT) ODT tab 4 mg 4 mg, Oral, EVERY 6 HOURS PRN, nausea, v omiting, Starting on Fri10/09/20 at 1428, This is Step 1 of nausea and vomiting management. If n ausea not resolved in 15 minutes, go to Step 2 prochlorperazine (COMPAZINE). Do not push through foil backing. Peel back foil and gently remove. Place on to ngue immediately. Administration with liquid unnecessary W ith dry hands, peel back foil backing and gently remove tablet. Do not push oral d isintegrating tablet through foil backing. Administer immediately on tongue and oral disintegrati ng tablet dissolves in seconds, then swallow with saliva. Liquid not required . prochlorperazine (COMPAZINE) injection 1 0 mg 10 mg, Intravenous, EVERY 6 HOURS PRN, nausea, vomitin g, Administer over 1-2 Minutes, Starting on Fri10/09/20 at 1428, This is Step 2 of nausea and vomiting management. If nausea not resolved in 15 minutes, give metoclopramide (REGLAN), if ordered (step 3 of nausea and vomiting m anagement) For ordered IV doses 0.1-10 mg, give IV push undiluted, each 5 mg over 1 minute. prochlorperazine (COMPAZINE) tablet 10 m g 10 mg, Oral, EVERY 6 HOURS PRN, nausea, vomiting, Starting on Fri10/09/20 at 1428, This is Step 2 of nausea and vomiting management. If n ausea not resolved in 15 minutes, give metoclopramide (REGLAN), i f ordered (step 3 of nausea and vomiting management) scopolamine Patch/Med Applied 10/09/2020 10:09 AM 1 patch Behind Left Ear (TRANSDERM) 72 hr CDT patch 1 patch 1 patch, Transdermal, ONCE, Administer over 72 Hours, On Fri10/09/20 at 1030, For 1 dose, Apply patch to skin, behind ear. Remove every 72 hours. DO NOT CUT PATCH. If dose is for a half patch, RN to remove only half of the backing. Each 1.5 mg patch delivers 1 mg of scopolamine. Reminder: Remove previous patch before applying new patch. documented in this encounter Active and Recently Administered Medications Times are shown in CDT. Scheduled Medication Order 10/08/2020 10/09/2020 10/10/2020 albuterol (PROAIR HFA/PROVENTIL HFA/VENT CATRACHO HFA) 108 (90 Base) MCG/ACT inhaler 2 puff 1537 (Not Given - Provider: Denisse Manley RN - Reason: Patient/family refused)2036 (Not Given - Provider: Juli Agarwal, RT - Reason: Patient/family refused) 0401 (Not Given - Provider: Juli bloom RT - Reason: Patient/family refused)0705 (Not Given - Provider: Ivette Sanches RT - Reason: Patient/family refused - Comment: pt refuse) 2 puff, Inhalation, EVERY 6 HOURS, First dose on Fri10/09/20 at 1430, Check the dose counter on the inhaler to ensure there are doses remaining before administering. ceFAZolin (ANCEF) intermittent infusion 2 g in 100 mL dextrose PRE-MIX (COMPLETED) 1050 (Given - Provider: Piedad Salazar APRN SPRINKLER HELPER - Comment: Infusion complete @ 1055) Routine, 2 g, Intravenous, PRE-OP/PRE-NC OCEDURE, Starting Fri10/09/20 at 0931, For 1 dose, Give first dose within 1 hour PRIOR to incision. If patient weight is greater than or equal to 120 kg increase dose to 3 g., Indications: Perioperative Pharmacoprophylaxis, Pr e-procedure metoprolol succinate ER (TOPROL-XL) 24 hr tablet 50 mg 0947 (Not Given - Provider: Mavis Torrez RN - Reason: Patient/family refused - Comment: Soft BP this AM) 50 mg, Oral, DAILY, First dose on Fri10/10/20 at 0800 scopolamine (TRANSDERM) 72 hr patch 1 patch 1009 (Patch/Med Applied - Provider: Yuliya Morel, RN) 1154 (Due: Patch/Med Removed - Provider: Orders Generic Provider - Comment: Time automatically adjusted from order being discontinued) 1 patch, Transdermal, ONCE, Administer o ami 72 Hours, Fri10/09/20 at 1030, For 1 dose, Apply patch to skin, behind ear. Remove every 72 hours. DO NOT CUT PATCH. If dose is for a half patch, RN to remove only half of the backing. Each 1.5 mg p atch delivers 1 mg of scopolamine. Reminder: Remove previous patch before applying new patch. sodium chloride (PF) 0.9% PF flush 3 mL 1518 (Not Given - Provider: Mavis Torrez RN - Reason: IV Infusing)2210 (Not Given - Provider: Denisse Manley RN - Reason: IV Infusing) 0850 (Not Given - Provider: Mavis Torrez RN - Reason: IV Infusing) 3 mL, Intracatheter, EVERY 8 HOURS, Firs t dose on Fri10/09/20 at 1430, And Q1H PRN, to lock peripheral IV dormant line. Continuous Medication Order 10/08/2020 10/09/2020 10/10/2020 lactated ringers infusion (CANCELED) 100 6 (New Bag - Provider: Yuliya Morel, ARI)1226 (Anesthesia Volume Adjustment - Provider: Miriam Salazar, BON SPRINKLER HELPER)1430 (Stopped - Provider: Mavis Torrez RN) at 25 mL/hr, Intravenous, CONTINUOUS, IF patient NOT on dialysis., Pre- procedure, Starting Fri10/09/20 at 1000, Until Fri10/09/20 at 1239 lactated ringers infusion 1519 (Rate/Dose Change - Provider: Mavis Torrez RN) 0137 (New Bag - Provider: Heide Huber, RN)0948 (Stopped - Provider: Mavis Torrez RN) at 100 mL/hr, Intravenous, CONTINUOUS, S tarting Fri10/09/20 at 1430, Until Tu10/10/20 at 1354 PRN Medication Order 10/08/2020 10/09/2020 10/10/2020 acetaminophen (TYLENOL) tablet 650 mg 650 mg, Oral, EVERY 6 HOURS PRN, mild pa in, Starting Fri10/09/20 at 1428, Do not use if patient has an active opioid/acetaminophen analgesic order for pain. Maximum acetaminophen dose from all sources = 75 mg/kg/day not to exceed 4 grams/day. bupivacaine (MARCAINE) 0.25% preservative free injection (CA NCELED) 1221 (Given - Provider: Carine Hester MD) PRN, Starting Fri10/09/20 at 1221, Intra-procedure fentaNYL (PF) (SUBLIMAZE) injection 25-50 mcg (CANCELED) 1253 (Given - Provider: Cassandra Wise RN)1303 (Given - Provider: Cassandra Wise RN) 25-50 mcg, Intravenous, EVERY 2 MIN PRN, other, acute pain while in PACU., Starting Fri10/09/20 at 1248, MAX cumulative dose = 250 mcg. Use fentaNYL (SUBLIMAZE) initially, as a short acting agent for ac knik pain control. If insufficient, or a longer acting agent is needed, begin morphine or HYDROmorphone (DILAUDID) if ordered. For ordered IV doses 1-100 mcg give IV Push undiluted over a minimum of 3-5 minutes., PACU HYDROcodone-acetaminophen (NORCO) 5-325 MG per tablet 1-2 ta blet 1524 (Given - Provider: Denisse Manley RN)1954 (Not Given - Provider: Denisse Manley, ARI - Reason: Other - Comment: pulled too soon. Not given, returned to [facility]is)2036 (Given - Provider: Deinsse Manley RN) 013 (Given - Provider: Heide Huber RN)0851 (Given - Provider: Mavis Torrez RN) 1-2 tablet, Oral, EVERY 4 HOURS PRN, oth er, pain control or improvement in physical function. Hold dose for analgesic side effects., Starting Fri10/09/20 at 1428, Start with the lowest dose. May adjust dose by 1 tablet every 4 hours as needed . Notify the provider to assess for uncontrolled pain or analgesic side effects. Hold while on IV TELECOMMUNICATIONS PROFESSIONAL or with regular IV opioid dosing. Maximum acetaminophen dose from all sources= 75 mg/kg/day not to exceed 4 grams HYDROmorphone (DILAUDID) injection 0.2 mg 1820 (Given - Provider: Denisse Manley RN) 0.2 mg, Intravenous, EVERY 2 HOURS PRN, other, pain control or improvement in physical function. Hold dose for analgesic side effects., Starting Fri10/09/20 at 1428, Notify the provider to assess for un controlled pain or analgesic side effect s. Hold while on IV TELECOMMUNICATIONS PROFESSIONAL or with regular IV opioid dosing. lidocaine (LMX4) cream Topical, EVERY 1 HOUR PRN, pain, with VA D insertion or accessing implanted port., Starting Fri10/09/20 at 1428, Do NOT give if patient has a history of allergy to any local anesthetic or any adriana pro duct. Apply 30 minutes prior to VAD inse rtion or port access. MAX Dose: 2.5 g (?? of 5 g tube) lidocaine 1 % 1 mL 1 mL, Other, EVERY 1 HOUR PRN, mild pain with VAD insertion or accessing implanted port, Starting 10/09/20 at 1428, Do NOT give if patient has a history of allergy to any local anesthetic or any ti ne product. MAX dose 1 mL subcutaneous OR intradermal in divide d doses. naloxone (NARCAN) injection 0.2 mg(Linked Group 1) 0.2 mg, Intravenous, EVERY 2 MIN PRN, op ioid reversal, Starting Fri10/09/20 at 1440, Administer intravenous route when available and notify provider when administered. For unintended sedation or respira tory depression if all of the below crit eria are met: ~ respiratory rate LESS than or EQUAL to 8. ~SaO2 less than 92% and or/end-tidal CO2 is greater than 50. ~ the patient is receiving an opioid, has u nintended sedations assessed as RASS (-3 ), and is currently not on mechanical ventilation. RASS scale moderate (-3) is movement or eye opening to voice but no eye contact. Patient Monitoring Once the pa tient has demonstrated a response to the naloxone, continue to monitor respiratory rate, depth, oxygen saturation and end-tidal CO2 (if available) every 15 minutes x 2, then every 30 minutes x 2, then e very 1 hour x 1 after each naloxone dose . Consider transfer to ICU if patient respiratory parameters have not improved after 4 naloxone doses. For ordered IV doses 0.1-2mg give IVP. Give each 0.4mg over 15 seconds in emergency situations. For non-emergent situations further dilute in 9mL of NS to facilitate titration of response. naloxone (NARCAN) injection 0.2 mg(Linked Group 1) 0.2 mg, Intramuscular, EVERY 2 MIN PRN, opioid reversal, Starting 10/09/20 at 1440, Administer intramuscular if an intravenous route is not available and notify provider when administered. For uninte nded sedation or respiratory depression if all of the below criteria are met: ~ respiratory rate LESS than or EQUAL to 8. ~SaO2 less than 92% and or/end-tidal CO2 is greater than 50. ~ the patient is re ceiving an opioid, has unintended sedati ons assessed as RASS (-3), and is currently not on mechanical ventilation. RASS scale moderate (-3) is movement or eye opening to voice but no eye contact. Patien t Monitoring Once the patient has demons trated a response to the naloxone, continue to monitor respiratory rate, depth, oxygen saturation and end-tidal CO2 (if available) every 15 minutes x 2, then ever y 30 minutes x 2, then every 1 hour x 1 after each naloxone dose. Consider transfer to ICU if patient respiratory parameters have not improved after 4 naloxone doses. For ordered IV doses 0.1-2mg give I WHEAT SHIPPER. Give each 0.4mg over 15 seconds in e mergency situations. For non-emergent situations further dilute in 9mL of NS to facilitate titration of response. naloxone (NARCAN) injection 0.4 mg(Linked Group 1) 0.4 mg, Intravenous, EVERY 2 MIN PRN, op ioid reversal, Starting Fri10/09/20 at 1440, Administer intravenous route when available and notify provider when administered. For unintended sedation or respira tory depression if all of the below crit eria are met: ~ respiratory rate LESS than or EQUAL to 8. ~ SaO2 less than 92% and or/end-tidal CO2 is greater than 50. ~ the patient is receiving an opioid, has unintended sedation assessed as RASS (-4 ) or (-5) and patient is currently not on mechanical ventilation. RASS scale (-4) is deep sedation with no response to voice but movement or eye opening to physic al stimulation. RASS scale (-5) is unaro usable. Patient Monitoring Once the patient has demonstrated a response to the naloxone, continue to monitor respiratory rate, depth, oxygen saturation and end-ti kim CO2 (if available) every 15 minutes x 2, then every 30 minutes x 2, then every 1 hour x 1 after each naloxone dose. Consider transfer to ICU if patient respiratory parameters have not improved after 4 naloxone doses. For ordered IV doses 0.1-2mg give IVP. Give each 0.4mg over 15 seconds in emergency situations. For non-emergent situations further dilute in 9mL of NS to facilitate titration of response. naloxone (NARCAN) injection 0.4 mg(Linked Group 1) 0.4 mg, Intramuscular, EVERY 2 MIN PRN, opioid reversal, Starting Fri10/09/20 at 1440, Administer intramuscular if an intravenous route is not available and notify provider when administered. For uninte nded sedation or respiratory depression if all of the below criteria are met: ~ respiratory rate LESS than or EQUAL to 8. ~ SaO2 less than 92% and or/end-tidal CO2 is greater than 50. ~ the patient is r eceiving an opioid, has unintended sedat ion assessed as RASS (-4) or (-5) and patient is currently not on mechanical ventilation. RASS scale (-4) is deep sedation with no response to voice but movement or eye opening to physical stimulation. RASS scale (-5) is unarousable. Patient Monitoring Once the patient has demonstrated a response to the naloxone, continue to monitor respiratory rate, depth, oxyg en saturation and end-tidal CO2 (if avai lable) every 15 minutes x 2, then every 30 minutes x 2, then every 1 hour x 1 after each naloxone dose. Consider transfer to ICU if patient respiratory parameters have not improved after 4 naloxone dose s. For ordered IV doses 0.1-2mg give IVP. Give each 0.4mg over 15 seconds in emergency situations. For non-emergent situations further dilute in 9mL of NS to facilitate titration of response. ondansetron (ZOFRAN) injection 4 mg(Linked Group 2) 4 mg, Intravenous, EVERY 6 HOURS PRN, na usea, vomiting, Administer over 2-5 Minutes, Starting 10/09/20 at 1428, This is Step 1 of nausea and vomiting management. If nausea not resolved in 15 minutes, go to Step 2 prochlorperazine (COMPAZIN E). Irritant. For ordered IV doses 0.1-4 mg, give IV Push undiluted over 2-5 minutes. ondansetron (ZOFRAN-ODT) ODT tab 4 mg(Linked Group 2) 4 mg, Oral, EVERY 6 HOURS PRN, nausea, v omiting, Starting 10/09/20 at 1428, This is Step 1 of nausea and vomiting management. If nausea not resolved in 15 minutes, go to Step 2 prochlorperazine (COMP AZINE). Do not push through foil backing . Peel back foil and gently remove. Place on tongue immediately. Administration with liquid unnecessary With dry hands, peel back foil backing and gently remove t ablet. Do not push oral disintegrating t ablet through foil backing. Administer immediately on tongue and oral disintegrating tablet dissolves in seconds, then swallow with saliva. Liquid not required. prochlorperazine (COMPAZINE) injection 10 mg(Linked Group 3) 10 mg, Intravenous, EVERY 6 HOURS PRN, n ausea, vomiting, Administer over 1-2 Minutes, Starting 10/09/20 at 1428, This is Step 2 of nausea and vomiting management. If nausea not resolved in 15 minutes , give metoclopramide (REGLAN), if order ed (step 3 of nausea and vomiting management) For ordered IV doses 0.1-10 mg, give IV push undiluted, each 5 mg over 1 minute. prochlorperazine (COMPAZINE) tablet 10 mg(Linked Group 3) 10 mg, Oral, EVERY 6 HOURS PRN, nausea, vomiting, Starting 10/09/20 at 1428, This is Step 2 of nausea and vomiting management. If nausea not resolved in 15 minutes, give metoclopramide (REGLAN), if o rdered (step 3 of nausea and vomiting management) sodium chloride (PF) 0.9% PF flush 3 mL 3 mL, Intracatheter, EVERY 1 HOUR PRN, l ine flush, for peripheral IV flush post IV meds, Starting Fri10/09/20 at 1428 Linked Groups Order Group 1: naloxone (NARCAN) injection 0.2 mgJump to med 0.2 mg, Intravenous, EVERY 2 MIN PRN, op ioid reversal, Starting Fri10/09/20 at 1440
Administer intravenous route when available and notify provider when administered. For unintended se dation or respiratory depression if all of the below criteria are met: ~ respiratory rate LESS than or EQUAL to 8. ~SaO2 less than 92% and or/end- tidal CO2 is greater than 49.&nbs p;~ the patient is receiving an opioid, has unintended sedations assessed as RASS (-3), and is currently not on mechanical ventilation. RASS scale moderate (-3) is movement or eye ope katarina to voice but no eye contact. & nbsp;Patient Monitoring Once the patient has demonstrated a response to the naloxone, continue to monitor respiratory rate, depth, oxygen saturat ion and end-tidal CO2 (if available) bhaskar ry 15 minutes x 2, then every 30 minutes x 2, then every 1 hour x 1 after each naloxone dose. Consider transfer to ICU if patient respiratory p arameters have not improved after 4 nalo xone doses. For ordered IV doses 0.1-2mg give IVP. Give each 0.4mg over 15 seconds in emergency situations. For non-emergent situations further dilute in 9mL of NS to facilitate titration of response.
Or naloxone (NARCAN) injection 0.4 mgJump to med 0.4 mg, Intravenous, EVERY 2 MIN PRN, op ioid reversal, Starting Fri10/09/20 at 1440
Administer intravenous route when available and notify provider when administered. For unintended se dation or respiratory depression if all of the below criteria are met: ~ respiratory rate LESS than or EQUAL to 8. ~ SaO2 less than 92% and or/end- tidal CO2 is greater than 50.&nbs p;~ the patient is receiving an opioid, has unintended sedation assessed as RASS (-4) or (-5) and patient is currently not on mechanical ventilation. RASS scale (-4) is deep sedation with no response to voice but movement o r eye opening to physical stimulation. RASS scale (-5) is unarousable. Patient Monitoring Once the patient has demonstrated a response to the naloxone, continue to monitor respiratory rate, depth, oxygen saturation and end-tidal CO2 (if available) every 15 minutes x 2, then every 30 minutes x 2, then every 1 hour x 1 after each naloxon e dose. Consider transfer to ICU if patient respiratory parameters have not improved after 4 naloxone doses. For ordered IV doses 0.1- 2mg give IVP. Give each 0.4mg over 15 se conds in emergency situations. For non- emergent situations further dilute in 9mL of NS to facilitate titration of response.
Or naloxone (NARCAN) injection 0.2 mgJump to med 0.2 mg, Intramuscular, EVERY 2 MIN PRN, opioid reversal, Starting Fri10/09/20 at 1440
Administer intramuscular if an intravenous route is not available and notify provider when administered.&am p;nbsp;For unintended sedation or respir atory depression if all of the below criteria are met: ~ respiratory rate LESS than or EQUAL to 8. ~SaO2 less than 92% and or/end-tidal CO2 is greater than 50. ~ the patient is r eceiving an opioid, has unintended sedations assessed as RASS (-3), and is currently not on mechanical ventilation. RASS scale moderate (-3 ) is movement or eye opening to voice bu t no eye contact. Patient Monitoring Once the patient has demonstrated a response to the naloxone, continue to monitor respiratory rat e, depth, oxygen saturation and end-tida l CO2 (if available) every 15 minutes x 2, then every 30 minutes x 2, then every 1 hour x 1 after each naloxone dose. Consider transfer to ICU if patient respiratory parameters have n ot improved after 4 naloxone doses. For ordered IV doses 0.1-2mg give IVP. Give each 0.4mg over 15 seconds in emergency situations. For non-emergent situ ations further dilute in 9mL of NS to fa cilitate titration of response.
Or naloxone (NARCAN) injection 0.4 mgJump to med 0.4 mg, Intramuscular, EVERY 2 MIN PRN, opioid reversal, Starting Fri10/09/20 at 1440
Administer intramuscular if an intravenous route is not available and notify provider when administered.&am p;nbsp;For unintended sedation or respir atory depression if all of the below criteria are met: ~ respiratory rate LESS than or EQUAL to 8. ~ SaO2 less than 92% and or/end-tidal CO2 is greater than 50. ~ the patient is r eceiving an opioid, has unintended sedation assessed as RASS (-4) or (-5) and patient is currently not on mechanical ventilation. RASS scal e (-4) is deep sedation with no response to voice but movement or eye opening to physical stimulation. RASS scale (-5) is unarousable. Patient M onitoring Once the patient has demo nstrated a response to the naloxone, continue to monitor respiratory rate, depth, oxygen saturation and end-tidal CO2 (if available) every 15 minutes x 2, the n every 30 minutes x 2, then every 1 kyleigh r x 1 after each naloxone dose. Consider transfer to ICU if patient respiratory parameters have not improved after 4 naloxone doses. F or ordered IV doses 0.1-2mg give IVP. Gi ve each 0.4mg over 15 seconds in emergency situations. For non-emergent situations further dilute in 9mL of NS to facilitate titration of response.
Group 2: ondansetron (ZOFRAN-ODT) ODT tab 4 mgJump to med 4 mg, Oral, EVERY 6 HOURS PRN, nausea, v omiting, Starting Fri10/09/20 at 1428
This is Step 1 of nausea and vomiting management. If nausea not resolved in 15 minutes, go to St ep 2 prochlorperazine (COMPAZINE). Do no t push through foil backing. Peel back foil and gently remove. Place on tongue immediately. Administration with liquid unnecessary With dry hands, peel b ack foil backing and gently remove table t. Do not push oral disintegrating tablet through foil backing. Administer immediately on tongue and oral disintegrating tablet dissolves in seconds, then swallow with saliva. Liquid not required.
Or ondansetron (ZOFRAN) injection 4 mgJump to med 4 mg, Intravenous, EVERY 6 HOURS PRN, na usea, vomiting, Administer over 2-5 Minutes, Starting 10/09/20 at 1428
This is Step 1 of nausea and vomiting management. If nausea not resolved in 15 minutes, go to Step 2 prochlorperazine (COMPAZINE). Irritant. For ordered IV doses 0.1-4 mg, give IV Push undiluted over 2-5 minutes.
Group 3: prochlorperazine (COMPAZINE) injection 10 mgJump to med 10 mg, Intravenous, EVERY 6 HOURS PRN, n ausea, vomiting, Administer over 1-2 Minutes, Starting 10/09/20 at 1428
This is Step 2 of nausea and vomiting management. If nausea not reso lved in 15 minutes, give metoclopramide (REGLAN), if ordered (step 3 of nausea and vomiting management) For ordered IV doses 0.1-10 mg, give IV push undiluted, each 5 mg over 1 minute.
Or prochlorperazine (COMPAZINE) tablet 10 mgJump to med 10 mg, Oral, EVERY 6 HOURS PRN, nausea, vomiting, Starting 10/09/20 at 1428
This is Step 2 of nausea and vomiting management. If nausea not resolved in 15 minutes, give metoclopram clementine (REGLAN), if ordered (step 3 of naus ea and vomiting management)
documented in this encounter Care Teams Wire Straightening Machine Operator Relationship Specialty Start Date End Date Lyndsey Guzman MD PCP - General Family Medicine 08/28/20 [facility] [address] [place] [address] Carine Hester MD Assigned Surgical Provider 09/17/20 [address] [facility] [address] [place] [address] documented as of this encounter
--- OUTSIDE RECORDS SUMMARY | 2022-02-06 08:54 | XMS_ITS | Encounter Summary ---
:1970 Author Organization [facility] Address [address] [place] [address] Care Team Providers Name Role Phone Lyndsey Guzman MD Primary Care Provider Carine Smallwood MD Unavailable Reason for Visit Reason Comments Surgical Followup PO left thyroid lobectomy, a utotransplantation of left inferior parathyroid gland Encounter Details Date Type Department Care Team Description [facility] Surgery [facility] Postoperative cellulitis of surgical wou nd [place] [address] [facility] [address] [facility] [address] [place], [place] [id number] Social History Tobacco Use Types Packs/Day Years [...] been in contact with No / Unsure 11/28/2020 9:48 AM CDT someone who was confirmed or suspected to have Coronavirus / COVID-19? documented as of this encounter Last Filed Vital Signs Vital Sign Reading Time Taken Comments Blood Pressure 134/84 11/28/2020 9:52 AM CDT Pulse 97 11/28/2020 9:52 AM CDT Temperature - - Respiratory Rate 16 11/28/2020 9:52 AM CDT Oxygen Saturation 99% 11/28/2020 9:52 AM CDT Inhaled Oxygen Concentration - - Weight 81.2 kg (179 lb) 11/28/2020 9:52 AM CDT Height 167.6 cm (5' 6) 11/28/2020 9:52 AM CDT Body Mass Index 28.89 11/28/2020 9:52 AM CDT documented in this encounter Progress Notes Vee Levy PA-C - 11/28/2020 10:00 AM CDT Images from the original note were not included. 10/13/2020 [facility] Subjective: Aileen Sloan is here for evaluation of surgical site redness. She underwent left??thyroid lobectomy with autotransplant of left inferior parathyroid gland by Dr. Smallwood on 10/09/20. She was lastseen in clinic on 11/[address] for follow up [address] Dr. Smallwood, ans she was doing well at that time. Today, she reports an area of redness for the past week. It has been increasing in size and becoming more uncomfortable. Objective: Neck incision: + surrounding erythema, 3 cm x 2 cm. Incision is healed closed, without drainage. Incision was probed with forceps and an opening was easily formed at central incision, releasing purulent/bloody drainage. No suture granuloma was found. Assessment: Postop swelling vs loculated seroma/hematoma S/p left??thyroid lobectomy with autotransplant of left inferior parathyroid gland Plan: Keep incision covered until no longer draining. Rx Keflex QID x 7 days. RTC 7 days if redness not fully resolved, sooner if symptoms worsen. Vee Levy PA-C Please route or send letter to: *None* documented in this encounter Plan of Treatment Not on filedocumented as of this encounter Visit Diagnoses Diagnosis Surgical followup visit - Primary Follow-up examination, following unspeci fied surgery Postoperative cellulitis of surgical wou nd Other postoperative infection documented in this encounter Care Teams Echo Tech Relationship Specialty Start Date End Date Lyndsey Guzman MD PCP - General Family Medicine 08/28/20 [facility] [address] [place] [address] Carine Smallwood MD Assigned Surgical Provider 11/05/20 [facility] [address] [place] [address] documented as of this encounter
--- OUTSIDE RECORDS SUMMARY | 2022-02-06 08:54 | XMS_ITS | Encounter Summary ---
:1970 Author Organization [facility] Address [address] [place] [address] Care Team Providers Name Role Phone Lyndsey Guzman MD Primary Care Provider Carine Hester MD Unavailable Reason for Visit Auth/Cert Specialty Diagnoses / Procedures Referred By Contact Refer red To Contact Surgery Diagnoses Thyroid nodule Thyroid nodule [E04.1] Rh Periop Services Procedures HC THYROIDECTOMY HC THYROIDECTOMY,MALIG,LTD NECK SURG left thyroid lobectomy, possible total thyroidectomy [address] [place], [place] [address] Phone: Fax: Referral ID Status Reason Start Date Expiration Date Visits Requ ested Visits Authorized [id number] 1 1 Encounter Details Date Type Department Care Team Description 10/09/2020 Surgery [facility] Carine Hester, left thyroid lobectomy, [place] [facility] autotransplantation of left Services [address] inferior parathyroid gland [address] [facility] [address] [place] [address] [phone] Surgery Details Date/Time Status Location OR Service Patient Case Class Case Type Trauma Class Case? 10/09/20 10:10 Posted [facility] OR OR 15 General Same Day AM Surgery Panel 1 Procedure LRB Anes Op Region Wound Class Commen ts left thyroid lobectomy, Left General Neck I-Clean autotransplantation of left inferior parathyroid gland Surgeon Surgeon Role Service Panel Carine Hester MD Primary General 1 Kellie Rankin PA-C Assisting Electric Power Line Repairer Authoriz ation 1 Special Needs 5'6.54; 181# per H & P documented in this encounter Social History Tobacco [...] Sign Reading Time Taken Comments Blood Pressure 131/83 10/09/2020 9:49 AM CDT Pulse - - Temperature 36.8 ??C (98.2 ??F) 10/09/2020 9:49 AM CDT Respiratory Rate 18 10/09/2020 9:49 AM CDT Oxygen Saturation - - Inhaled Oxygen Concentration - - Weight 81.2 kg (179 lb) 10/09/2020 9:24 AM CDT Height 167.6 cm (5' 6) 10/09/2020 9:24 AM CDT Body Mass Index 28.89 10/09/2020 9:24 AM CDT documented in this encounter Discharge Instructions Discharge InstructionsKellie Rankin PA-C - 10/10/2020 9:28 AM CDT HOME CARE FOLLOWING THYROIDECTOMY/LOBECTOMY [facility] Special instructions for Ruby Christian: --Discharge medications: [place] --Follow up appointment with Dr. Hester in 1-3 weeks, follow up with Senior Manager Asset Protection in 4-6 weeks. INCISIONAL CARE: ??? You [...] Rankin PA-C - 10/10/2020 9:29 AM CDT [facility] General Surgery Progress Note Assessment and Plan: Assessment: Ruby Christian is a 50 year old female 1 Day Post-Op from Procedure(s): left thyroid lobectomy, autotransplantation of left inferior parathyroid gland - doing well Plan: Pain mgmt: [place] Diet: regular IVFs: saline lock Activity: as tolerated Dispo: home today, follow up with Dr Hester in 2-3 weeks Interval History: Pt sitting up in bed. Complains of mild throat pain, controlled with [place]. Also feels very anxious and wants to [...] 7. Provider specific discharge goals met: Yes Whiteprinting Machine Operator Nurse Safe discharge environment identified: [...] AM, metoprolol held. RX's sent down to [facility]. Patient will discharge when meds are sent [...] Continue to monitor and provide supportive cares. Whiteprinting Machine Operator Nurse Safe discharge environment identified: [...] Continue to monitor and provide supportive cares. Whiteprinting Machine Operator Nurse Safe discharge environment identified: [...] long as patient stays asymptomatic. Plan of Ellie - Denisse Manley RN - 10/09/2020 9:31 [...] neck pain in spite of Dilaudid and [place] given at ordered intervals. Patient consistently rating her pain a 9 on a 1-10 scale, however appears comfortable. Additional conversation regarding realistic expectations of pain medications an tolerable discomfort. Patient is an assist of one, ambulating to the bathroom prn. Maintenance IV continues at 100 mls/hour. Plan: Continueto provide supportive cares. Whiteprinting Machine Operator Nurse Safe discharge environment identified: Yes Barriers to discharge: Yes, unless medically cleared. Entered by: Denisse Manley 10/09/2020 9:32 PM Please review provider order for any additional goals. Nurse to notify provider when observation goals have been met and patient is ready for discharge. Plan of Denisse Maciel RN - 10/09/2020 7:46 PM CDT PRIMARY [...] Patient c/o of break through pain after [place] given. Dilaudid given per order. Patient eduction given regarding pain medication expectations. Patient is a standby assist, ambulating to the bathroom prn. Plan: Continue to provide supportive cares. Whiteprinting Machine Operator Nurse Safe discharge environment identified: Yes Barriers to discharge: Yes, unless medically cleared. Entered by: Denisse Manley 10/09/2020 7:48 PM Please review provider order for any additional goals. Nurse to notify provider when observation goals have been met and patient is ready for discharge. Pharmacy-Admission Medication History - Jorge L Dan [facility] - 10/09/2020 3:31 PM CDT Medication history and patient interview completed by pharmacy data analyst/student or pre-admitting RN. Reviewed by pharmacist, including [employer] dispense records, [facility] Everywhere, and chart review. Jorge L Dan, Pharm.D., [facility] Nurse Complete Set By: Rupali Silver RN [...] Ancef 2 gm SURGEON: Carine Hester MD PUBLIC HEALTH ASSISTANT: Kellie Rankin PA-C, - the physician assistant secretary was medically necessary in providing adequate exposure in the operating field, maintaining hemostasis, cutting suture, clamping and ligatingblood vessels, and visualization of the anatomic structures throughout the surgical procedure. ESTIMATED BLOOD LOSS: 10 cc INDICATIONS: Ruby Christian is a 50 year old [...] hemostasis and closed over a 10 round LOIVIER drain with running 3-0 Vicryl for the [...] pole) Tissue Thyroid, left SURGICAL PATHOLOGY EXAM aCrine Hester MD 10/09/2020 12:01 PM Carine Hester [...] 5:29 AM 5:35 CDT AM CDT Carine Hestre MD LAB - BEAKER POCT Performing Organization Address City/State/ZIP Code Phon e Number FV POINT OF CARE TEST, GLUCOSE POINT OF CARE TEST, GLUCOSE Surgical pathology exam (10/09/2020 11:51 AM CDT) Component Value Ref Test Analysis Performed At Patholo gist Range Method Time Signature Copath Patient Name: RUBY CHRISTIAN COPAVERY Report MR#: [id number] Specimen #: [id number] Collected: 10/09/2020 Received: 10/09/2020 Reported: 10/10/2020 17:28 [...] soft tissue fragment. Entirely submitted on one joey k for frozen section analysis and resubmitted [...] follows: Blue - Anterior Black - Posterior [place] - Isthmic Margin The specimen is serially sectioned from superior to inferior , revealing a 1.4 x 1.3 x 1.0 cm winchester-white, grossly encapsulated, focally calcified nodule within the in ferior pole. The nodule focally abuts the posterior capsular surface and measures 0.3 cm from the ante rior capsular surface and 1.2 cm from the isthmic margin. A insurance healthcare representative section is submitted on one janice f or frozen section analysis and resubmitted for permanent sections in block B1FS. The remaining parenchyma i s grossly remarkable. Install And Repair Technician sections including the entire nodule are submitted. Summary of Sections: B1FS - frozen section B2-B4 - remaining nodule B5 - insurance healthcare representative uninvolved superior and middle poles (Di ctated by: JEANIE Andrew([facility]) 10/09/2020 12:28 PM) INTRAOPERATIVE CONSULTATION: Frozen section [...] of this testing was completed at the [facility], with the professional compo nent performed at the [facility], [address] [place] [address] ??[phone] ([phone]) CPT Codes: A: 27396-SW2, 13579-HG B: 81988-TW8, 29464-AV COLLECTION SITE: Client: [facility] Location: RHOR (R) Specimen Anatomical Location Collection [...] Pike MD ECG ORDERABLES Performing Organization Address [facility] Phon e Number RADIOLOGY RESULTS HCG qualitative urine (10/09/2020 9:15 AM CDT) P athologist Signature HCG Qual Urine Negative NEG^Negati 10/09/2020 [facility] 9:47 AM T [facility] Comment: This test is for screening purposes. ??R esults should be interpreted along with the clinical picture. ??Confirmation te sting is available if warranted by ordering [id number], HCG Quantitative Pregna ncy. Specimen Anatomical Collection Method Collection Time Receive d Time (Source) Location / / Volume Laterality Urine URINE SPECIMEN / 10/09/2020 9:15 AM 10/09 9:37 Unknown CDT AM CDT [facility] Pike MD LAB - URINE ORDERABLES Performing Organization Address City/[facility]/ZIP [facility] Phon e Number [facility] [address] [address] [facility] [address] [address] [facility] [phone] documented in this encounter Visit Diagnoses Diagnosis Thyroid nodule - Primary Nontoxic uninodular goiter Thyroid nodule Nontoxic uninodular goiter Thyroid nodule Nontoxic uninodular goiter documented in this encounter Admitting Diagnoses Diagnosis Thyroid nodule Nontoxic uninodular goiter documented in this encounter Administered Medications Inactive Administered Medications - up to 3 most recent administrations Medication Order MAR Action Action Date Dose Rate Site bupivacaine (MARCAINE) Given 10/09/2020 12:21 10 mLs Operative 0.25% preservative free PM CDT S ite/Surgical Site injection PRN, Starting on Fri10/09/20 at 1221, Intra-procedure fentaNYL (PF) (SUBLIMAZE) injection 25-5 0 mcg Given 10/09/2020 1:03 PM CDT 50 mcg 25-50 mcg, Intravenous, EVERY 2 MIN [...] analgesic side effects. Hold while on IV MANUFACTURING TEAM LEADER or with regular IV opioid dosing. Maximum [...] analgesic side effects. Hold while on IV MANUFACTURING TEAM LEADER or with regular IV opioid dosing. lactated [...] 108 (90 Base) MCG/ACT inhaler 2 puff 1536 (Not Given - Provider: Denisse Manley RN - Reason: Patient/family refused)2036 (Not Given - Provider: Juli Agarwal, RT - Reason: Patient/family refused) 0401 (Not Given - Provider: Juli bloom, RT - Reason: Patient/family refused)0705 (Not Given - Provider: Ivette Sanches, RT - Reason: Patient/family refused - Comment: pt refuse) 2 puff, Inhalation, EVERY 6 HOURS, First dose on Fri10/09/20 at 1430, Check the dose counter on the inhaler to ensure there are doses remaining before administering. ceFAZolin (ANCEF) intermittent infusion 2 g in 100 mL dextrose PRE-MIX (COMPLETED) 1050 (Given - Provider: Piedad Salazar APRN [facility] - Comment: Infusion complete @ 1055) Routine, 2 g, Intravenous, PRE-OP/PRE-TX OCEDURE, Starting Fri10/09/20 at 0931, For 1 [...] 1009 (Patch/Med Applied - Provider: Yuliya Morel, ARI) 1154 (Due: Patch/Med Removed - Provider: Orders [...] ARI)1226 (Anesthesia Volume Adjustment - Provider: Miriam Salazar APRN [facility])1430 (Stopped - Provider: Mavis Torrez RN) at 25 mL/hr, Intravenous, CONTINUOUS, IF patient NOT on dialysis., Pre- procedure, Starting Fri10/09/20 at 1000, Until Fri10/09/20 at 1239 lactated ringers infusion 1519 (Rate/Dose Change - Provider: Mavis Torrez RN) 0137 (New Bag - Provider: Heide Huber, ARI)0948 (Stopped - Provider: Mavis Torrez RN) at 100 mL/hr, Intravenous, CONTINUOUS, S tarting Fri10/09/20 at 1430, Until Fri10/10/20 at 1354 PRN Medication Order 10/08/2020 10/09/2020 [...] as a short acting agent for ac [place] pain control. If insufficient, or a longer acting agent is needed, begin morphine or HYDROmorphone (DILAUDID) if ordered. For ordered IV doses 1-100 mcg give IV Push undiluted over a minimum of 3-5 minutes., PACU HYDROcodone-acetaminophen (NORCO) 5-325 MG per tablet 1-2 ta blet 152 (Given - Provider: Denisse Manley, RN)1954 (Not Given - Provider: Denisse Manley RN - Reason: Other - Comment: pulled too soon. Not given, returned to pixis)2036 (Given - Provider: Denisse Manley, RN) 013 (Given - Provider: Heide Huber, RN)0851 (Given - Provider: Mavis Torrez RN) [...] analgesic side effects. Hold while on IV MANUFACTURING TEAM LEADER or with regular IV opioid dosing. Maximum acetaminophen dose from all sources= 75 mg/kg/day not to exceed 4 grams HYDROmorphone (DILAUDID) injection 0.2 mg 1820 (Given - Provider: Denisse Manley, ARI) 0.2 mg, Intravenous, EVERY 2 HOURS PRN, other, pain control or improvement in physical function. Hold dose for analgesic side effects., Starting Fri10/09/20 at 1428, Notify the provider to assess for un controlled pain or analgesic side effect s. Hold while on IV MANUFACTURING TEAM LEADER or with regular IV opioid dosing. lidocaine [...] VAD insertion or accessing implanted port, Starting Fri10/09/20 at 1428, Do NOT give [...] For ordered IV doses 0.1-2mg give I BLADDER CLEANER. Give each 0.4mg over 15 seconds in [...] ausea, vomiting, Administer over 1-2 Minutes, Starting Fri10/09/20 at 1428, This is Step 2 [...] EVERY 6 HOURS PRN, nausea, vomiting, Starting Fri10/09/20 at 1428, This is Step 2 [...] usea, vomiting, Administer over 2-5 Minutes, Starting Fri10/09/20 at 1428
This is Step [...] management)
documented in this encounter Care Teams Pouncing Machine Operator Relationship Specialty Start Date End Date Lyndsey Guzman MD PCP - General Family Medicine 08/28/20 [facility] [address] [place] [address] Carine Hester MD Assigned Surgical Provider 09/17/20 [address] [facility] [address] [place] [address] documented as of this encounter
--- OUTSIDE RECORDS SUMMARY | 2022-02-06 08:54 | XMS_ITS | Encounter Summary ---
:1970 Author Organization [place] Address [address] [place] [address] Care Team Providers Name Role Phone Lyndsey Guzman MD Primary Care Provider Vee Levy PA-C Unavailable [phone] Encounter Details Date Type Department Care Team Description 11/01/2020 Travel Social History Tobacco Use Types Packs/Day [...] on filedocumented in this encounter Care Teams Training Specialist Relationship Specialty Start Date End Date Lyndsey Guzman MD PCP - General Family Medicine 08/28/20 [facility] [address] [place] [address] Vee Levy, Assigned Surgical Provider 11/04/20 [address] [facility] [address] [place] [address] documented as of this encounter
--- OUTSIDE RECORDS SUMMARY | 2022-02-06 08:54 | XMS_ITS | Encounter Summary ---
:1970 Author Organization [place] Address [address] [place] [address] Care Team Providers Name Role Phone Lyndsey Guzman MD Primary Care Provider Carine Smallwood MD Unavailable Encounter Details Date Type Department Care Team Description 10/09/2020 Travel Social History Tobacco Use Types Packs/Day [...] on filedocumented in this encounter Care Teams Trim Sawyer Relationship Specialty Start Date End Date Lyndsey Guzman MD PCP - General Family Medicine 08/28/20 [facility] [address] [place] [address] Carine Smallwood MD Assigned Surgical Provider 09/17/20 [address] [facility] [address] [place] [address] documented as of this encounter
--- OUTSIDE RECORDS SUMMARY | 2022-02-06 08:54 | XMS_ITS | Encounter Summary ---
:1970 Author Organization [place] Address [address] [place] [address] Care Team Providers Name Role Phone Lyndsey Guzman MD Primary Care Provider Carine Smallwood MD Unavailable Encounter Details Date Type Department Care Team Description 11/28/2020 Travel Social History Tobacco Use Types Packs/Day [...] on filedocumented in this encounter Care Teams Shovel Handle Assembler Relationship Specialty Start Date End Date Lyndsey Guzman MD PCP - General Family Medicine 08/28/20 [facility] [address] [place] [address] Carine Smallwood MD Assigned Surgical Provider 11/05/20 [address] [facility] [address] [place] [address] documented as of this encounter
--- OUTSIDE RECORDS SUMMARY | 2022-02-06 08:54 | XMS_ITS | Encounter Summary ---
:1970 Author Organization [place] Address [address] [place] [address] Care Team Providers Name Role Phone Lyndsey Guzman MD Primary Care Provider Carine Smallwood MD Unavailable Reason for Visit Reason Onset Date Comments Post-Op - General Surgery 11/27/2020 s/p Left Thyro id Lobectomy, autotransplant of left inferior parath yroid gland.10/09/20 Encounter Details Date Type Department Care Team Description [facility] Surgery (s/p Left [place] [address] Thyroid Lobectomy, [address] [place], [place] [address] gland.10/09/20) [address] [phone] Social History Tobacco Use Types Packs/Day Years [...] / COVID-19? documented as of this encounter Miscellaneous Notes Telephone Encounter - Ana María Sanz RN - 11/27/2020 11:22 AM CDT S/p Left Thyroid Lobectomy, autotransplant of left inferior parathyroid gland. Date: 10/09/20 Surgeon: Dr. Smallwood Patient is calling to report that the left side of the incision has a small red circular area that has what seems like a pimple in the center of it. When she runs her hand over the area it feels like asliver poking her. Of note: patient has had a cough for the last week. States she was seen in an UC and prescribed Zpack. Negative test for covid at . We discussed that this may possibly be a stitch granuloma. Scheduled for post-op check with clinic PA tomorrow at 10am. documented in this encounter Plan of Treatment Not on filedocumented as of this encounter Visit Diagnoses Not on filedocumented in this encounter Care Teams Tire Shop Manager Relationship Specialty Start Date End Date Lyndsey Guzman MD PCP - General Family Medicine 08/28/20 [facility] [address] [place] [address] Carine Smallwood MD Assigned Surgical Provider 11/05/20 [facility] [address] [place] [address] documented as of this encounter
--- OUTSIDE RECORDS SUMMARY | 2022-02-06 08:54 | XMS_ITS | Clinical Summary ---
:1970 Author Organization [place] Address [address] [place] [address] Care Team Providers Name Role Phone Lyndsey Guzman MD Primary Care Provider Vee Levy PA-C Unavailable [phone] Allergies Active Allergy Reactions Severity Noted Date Comments Latex Hives 10/02/2020 Adhesive on ban daides Nickel Itching 10/02/2020 redness Medications Medication Sig Dispensed Refills Start Date End Date Status VALTREX 1 GM OR 2 po q 12 hours x 40 5 04/25/2005 Active TABSIndications: 1 day at first Herpes simplex without sign of lesion mention of complication, Other acne Metoprolol Succinate Take 50 mg by 0 Active (TOPROL XL PO) mouth daily albuterol (PROAIR HFA, Inhale 2 puffs 0 Active PROVENTIL HFA, into the lungs VENTOLIN HFA) 108 (90 every 6 hours BASE) MCG/ACT inhaler diazepam (VALIUM) 5 MG Take 5 mg by mouth 0 Active tablet every 6 hours as needed for anxiety Microlet Lancets MISC USE TO TEST BLOOD 0 07/17/2020 Active SUGAR TWICE DAILY CONTOUR NEXT TEST test 2 times daily 0 09/02/2020 Active strip Active Problems Problem Noted Date Thyroid nodule 09/06/2020 Overview: Added automatically from request for carlota guevara [id number] Tear of medial cartilage or meniscus of knee, current 04/24/2005 Backache 11/05/2004 Overview: Problem list name updated by automated p [employer]. Provider to review Abdominal pain, left lower quadrant 05/17/2004 Tobacco use disorder 10/19/2003 Other acne 08/26/2003 Irritable bowel syndrome 08/26/2003 Myalgia and myositis 08/26/2003 Overview: Problem list name updated by automated p [employer]. Provider to review DEPRESSIVE DISORDER NEC(aka DEPRESSION) 08/26/2003 Immunizations Name Administration Dates Next Due Influenza (IIV3) PF 01/15/2011, 04/27/2010 Influenza vaccine ages 6-35 months 02/17/2013 TD (ADULT, 7+) 05/28/2001, 04/14/2001 TDAP Vaccine (Adacel) 10/02/2011 Family History Medical History Relation Comments Prostate Cancer Father Gynecology Mother Uterine fibroid Cancer Paternal Grandfather lung cancer Relation Status Comments Father Mother Paternal Grandfather Social History Tobacco Use Types Packs/Day Years Used Date Smoking Tobacco: Every Day Cigarettes 1 10 Smokeless Tobacco: Never Tobacco Cessation: Counseling Given: Yes Alcohol Use Standard Drinks/Week Comments Yes 0 (1 standard drink = 0.6 oz pure alcoho l) Social drink/monthly Sex Assigned at Date Recorded Not on file Last Filed Vital Signs Vital Sign Reading Time Taken Comments Blood Pressure 134/84 11/28/2020 9:52 AM CDT Pulse 97 11/28/2020 9:52 AM CDT Temperature 36.8 ??C (98.3 ??F) 10/10/2020 8:16 AM CDT Respiratory Rate 16 11/28/2020 9:52 AM CDT Oxygen Saturation 99% 11/28/2020 9:52 AM CDT Inhaled Oxygen Concentration - - Weight 81.2 kg (179 lb) 11/28/2020 9:52 AM CDT Height 167.6 cm (5' 6) 11/28/2020 9:52 AM CDT Body Mass Index 28.89 11/28/2020 9:52 AM CDT Plan of Treatment Health Maintenance Due Date Last Done Comments ADVANCE CARE PLANNING 1970 ANNUAL REVIEW OF HM ORDERS 1969 CT COLONOGRAPHY 1969 FIT-DNA (Cologuard) 1969 FIT 1970 FLEX SIG 1970 YEARLY PREVENTIVE VISIT 1970 COVID-19 Vaccine (#1) 01/11/1970 Pneumococcal Vaccine: 07/13/1975 Pediatrics (0 to 5 Years) and At-Risk Patients (6 to 64 Years) (1 - PCV) HIV SCREENING 1984 HEPATITIS C SCREENING 07/13/1987 MAMMO SCREENING 05/02/2005 05/02/2004 PAP 04/25/2008 04/25/2005, 05/02/2004 LIPID 2014 04/25/2005 COLONOSCOPY 08/31/2015 08/30/2005 COLORECTAL CANCER SCREENING 08/31/2015 LUNG CANCER SCREENING 07/13/2019 09/19/2013 HEPATITIS B IMMUNIZATION (2 02/08/2020 01/11/2020 of 3 - 3-dose series) ZOSTER IMMUNIZATION (2 of 07/26/2020 05/31/2020 2) PHQ-2 (once per calendar 04/14/2021 year) DTAP/TDAP/TD IMMUNIZATION 10/01/2021 10/02/2011, 05/28/2001 , (4 - Td or Tdap) 05/28/2001, Additional history exists INFLUENZA VACCINE (#1) 2021 05/31/2020, 03/18/2019, 01/30/2018, Additional history exists IPV IMMUNIZATION Aged Out No longer eligi ble based on patient 's age to complete this topic MENINGITIS IMMUNIZATION Aged Out No longe r eligible based on patient 's age to complete this topic Insurance Payer Benefit Plan / Subscriber ID Effective Dates Phone Addre ss Type Group BLUE PLUS BLUE PLUS [id number] 2018-Present [phone] [address] [id number] [address] [place] [address] [place] [address] DUNCAN CHRISTIAN Personal/Family Spouse [address] (Home) [address] (Work) [address] Aileen Christian Personal/Family Self 1970 [address] (Home) [place] [address] Aileen Christian Kirstie Self 1970 [phone] (Home) [place] [address] Jill Louise Employer Other 09/20/1972 [employer] (Home) PAYABLE [phone] [address] (Work) [place] [address] Advance Directives For more information, please contact: [phone] Latest Code Status on File Code Status Date Activated Date Inactivated Comments Full Code 10/09/2020 2:28 PM 10/10/2020 1:54 PM All basic an d advanced life- sustaining interventions are performed as appropriate Post op Question Answer Comments Code status determined by: Other (please document) Care Teams Graphite Pan Drier Tender Relationship Specialty Start Date End Date Lyndsey Guzman MD PCP - General Family Medicine 08/28/20 [facility] [address] [place] [address] Vee Levy, Assigned Surgical Provider [address] [facility] [address] [place], [place] [address]
--- OUTSIDE RECORDS SUMMARY | 2022-02-06 08:55 | XMS_ITS | Encounter Summary ---
:1970 Author Organization [place] Address [address] [place] [address] Care Team Providers Name Role Phone Devin Britt DO Primary Care Provider Damian Dowell MD Unavailable Collin Singh MD Unavailable Unavailable Encounter Details Date Type Department Care Team Description 08/09/2009 Emergency room [facility] Emil Dougherty MD [facility] Results [facility] [address] [facility] [address] [address] (Wo rk) Social History Tobacco Use Types Packs/Day Years Used Date Smoking Tobacco: Every Day Cigarettes 1 10 Alcohol Use Standard Drinks/Week Comments Yes 0 (1 standard drink = 0.6 oz pure alcoho l) Social Sex Assigned at Date Recorded Not on file documented as of this encounter Progress Notes Jonh Dougherty - 08/30/2009 7:08 AM CDT FINAL CHIEF COMPLAINT: I have gallstones, abdominal pain and I ran out of my Percocet. HISTORY OF PRESENT ILLNESS: The patient, Aileen Christian, is a 39-year-old female who was just seen here on Friday, which is 3 days ago, for what sounds like biliary colic. She was prescribed a medication for pain at home. She said she had her last dose of medication last night, and she has had continued pain throughout the day today. She said she tried to call Dr. Sanabria, who is apparently going to perform a cholecystectomy on Friday, which is 2 days from now, but he was unable to get her any medication without seeing her, and also she tried to call her primary care physician and they were unable to get her in the clinic this afternoon, so she came here saying she just wants something for her pain. She said that she has been able to eat and stay hydrated, but she says it does seem to exacerbate her pain. She has not had any fevers or chills, vomiting or diarrhea, says it feels like her previousgallbladder pain she had on Friday. The patient says she just wants a few pills to get her through until Friday, until she can have her surgery. PAST MEDICAL HISTORY: History of anxiety. Previous surgeries include breast augmentation, tonsillectomy and knee surgery. She has had known history of gallstones. SOCIAL HISTORY: She does smoke cigarettes, denies street drugs or alcohol abuse. FAMILY HISTORY: Noncontributory. MEDICATIONS: Percocet, Ativan, Depo injection and multivitamins. ALLERGIES: No known drug allergies. REVIEW OF SYSTEMS: All negative except as above. PHYSICAL EXAMINATION: VITAL SIGNS: Blood pressure 144/99, pulse is 107, respirations 20, temperature 98.3, O2 saturation 99% on room air. HEENT: Unremarkable. NECK: Supple, no lymphadenopathy. LUNGS: Clear. HEART: Regular rate and rhythm. ABDOMEN: Soft, nondistended. She has some mild discomfort with palpation in her right upper quadrant. There is no definitive rebound or guarding noted. She has normal bowel sounds. No other masses noted. EXTREMITIES: Normal. SKIN: Warm and dry. No rash noted. NEUROLOGIC: Normal. HOSPITAL COURSE AND DISPOSITION: I discussed with the patient that if she has truly had pain, constant pain since Friday that has not been completely resolved that I wanted to do further testing. We could repeat ultrasound and do liver function tests and lipase test to be sure she is not getting any obvious obstructive process going on. However, patient is refusing these tests. She says she just wants to get a few pain medications so she can get through until Friday. She says she has been here all day. She said she cannot wait any longer, she has just got to go and requests please not to have any studies done, just wants some medication. I discussed with her I would give her a few pain medications, but I did recommend that she have the ultrasound and lab tests done, just to ensure there is no significant worsening process going on, though she is not febrile. She did not seem to have really any significant peritoneal signs on exam, and this is unlikely, but I cannot say that without any definiti ve tests. She understands this and is willing to go home and bowel rest, taking 24 hours of clear liquids and then take her pain medication as needed. If she, however, develops fever, persistent vomiting, worsening symptoms, she needs to return here. The patient understands this and is discharged home. She was given 8 Percocet. DIAGNOSES: 1. Abdominal pain. 2. History of cholelithiasis. Electronically signed on 08/30/2009 07:07 by JONH DOUGHERTY MD MT: [id number] Name: AILEEN CHRISTIAN MRN: [id number] Account: [id number] : 1970 Visit Date: 08/09/2009 Document: [id number] cc: Jose Sanabria MD documented in this encounter Plan of Treatment Not on filedocumented as of this encounter Visit Diagnoses Not on filedocumented in this encounter Care Teams Fuel Efficient Aircraft Designer Relationship Specialty Start Date End Date Devin Britt DO PCP - General 04/18/05 09/04/11 [address] [place] [address] Damian Dowell MD PCP - Surgery 05/08/04 03/14/14 [facility] [address] [place] [address] Collin Singh MD PCP - Orthopaedics 01/23/0602/19/18 documented as of this encounter
--- OUTSIDE RECORDS SUMMARY | 2022-02-06 08:55 | XMS_ITS | Encounter Summary ---
:1970 Author Organization [place] Address [address] [place] [address] Care Team Providers Name Role Phone Devin Britt DO Primary Care Provider Damian Dowell MD Unavailable Collin Singh MD Unavailable Unavailable Encounter Details Date Type Department Care Team Description 08/11/2009 Hospital Pathology [facility] Jean Pat MD [facility] Results [address] [place], [place] [address] (Wo rk) Social History Tobacco Use Types Packs/Day Years Used Date Smoking Tobacco: Every Day Cigarettes 1 10 Alcohol Use Standard Drinks/Week Comments Yes 0 (1 standard drink = 0.6 oz pure alcoho l) Social Sex Assigned at Date Recorded Not on file documented as of this encounter Plan of Treatment Not on filedocumented as of this encounter Procedures Procedure Name Priority Date/Time Associated Diagnosis Comme nts CL AFF SURGICAL Routine 08/11/2009 12:00 AM Resul ts for this PATHOLOGY CDT procedure are i n the results section. documented in this encounter Results Hospital - SURGICAL PATHOLOGY (08/11/2009 12:00 AM CDT) Component Value Ref Test Analysis Performed At [facility] Method Time Signature Copath Report Patient Name: AILEEN CHRISTIAN MR#: [id number] Specimen #: [id number] Collected: 08/11/2009 Received: 08/11/2009 Reported: 08/14/2009 16:33 Ordering Phy(s): AB PAT SPECIMEN(S): Gallbladder and contents FINAL DIAGNOSIS: Gallbladder and contents, resection - 1. ?Cholelithiasis. 2. ? Acute and chronic cholecystitis with eosinophilic i nfiltration and reactive epithelial changes. 3. ? No evidence of malignancy. Electronically signed out by: Hayden Dodd M.D. CLINICAL HISTORY: Cholelithiasis. GROSS: The specimen, labeled gallbladder and contents, consists o f 7.5 cm in length x 2.5 cm in diameter gallbladder. ??The outer surface is partially covered by unremarkable serosa. ??Two metallic clips are clementine ntified on the surface. ??On section, the lumen is partially filled wit h yellow-green mucoid bile and a single gallstone. ??The galls tone is yellow in color and measures 1.7 cm in diameter. ??The wall is 0.6 cm in thickness. ??The thickness is uniform. ??The mucosa is pink to yellow in color. ??No tumors are identified. ??Health Communications Specialist sections are submitted in one cassette. ??MGP/sg MICROSCOPIC: Microscopic examination was performed. MGP/kd 08-14-09 TESTING LAB LOCATION: [address] ??[id number] COLLECTION SITE: Client: [facility] Location: SDS (R) Specimen (Source) Anatomical Collection Method Collection Time Re ceived Time Location / / Volume Laterality 08/11/2009 08/11/2009 3:15 PM CDT Ab Pat MD LABORATORY Performing Organization Address City/State/ZIP Code Phon e Number [place] documented in this encounter Visit Diagnoses Not on filedocumented in this encounter Care Teams Welding Process Specialist Relationship Specialty Start Date End Date Devin Britt DO PCP - General 04/18/05 09/04/11 [address] [place] [address] Damian Dowell MD PCP - Surgery 05/08/04 03/14/14 [facility] [address] [address] Collin Singh MD PCP - Orthopaedics 01/23/0602/19/18 documented as of this encounter
--- OUTSIDE RECORDS SUMMARY | 2022-02-06 08:55 | XMS_ITS | Encounter Summary ---
:1970 Author Organization [place] Address [address] [place] [address] Care Team Providers Name Role Phone Lyndsey Guzman MD Primary Care Provider Encounter Details Date Type Department Care Team Description 09/06/2020 Travel Social History Tobacco Use Types Packs/Day Years Used Date Smoking Tobacco: Every Day Cigarettes 1 10 Smokeless Tobacco: Never Alcohol Use Standard Drinks/Week Comments Yes 0 (1 standard drink = 0.6 oz pure alcoho l) Social Sex Assigned at Date Recorded Not on file COVID-19 Exposure Response Date Recorded In the last month, have you been in contact with No / Unsure 09/06/2020 9:48 AM CDT someone who was confirmed or suspected to have Coronavirus / COVID-19? documented as of this encounter Plan of Treatment Not on filedocumented as of this encounter Visit Diagnoses Not on filedocumented in this encounter Care Teams Sample Finisher Relationship Specialty Start Date End Date Lyndsey Guzman MD PCP - General Family Medicine 08/28/20 [facility] [address] [place] [address] documented as of this encounter
--- OUTSIDE RECORDS SUMMARY | 2022-02-06 08:55 | XMS_ITS | Encounter Summary ---
:1970 Author Organization [place] Address [address] [place] [address] Care Team Providers Name Role Phone Devin Britt DO Primary Care Provider Damian Dowell MD Unavailable Collin Singh MD Unavailable Unavailable Encounter Details Date Type Department Care Team Description 05/31/2010 Operative Report [facility], (Community Life Director) [facility] Gurdeep Yap MD [address] [id number] (Wo rk) Social History Tobacco Use Types Packs/Day Years Used Date Smoking Tobacco: Every Day Cigarettes 1 10 Alcohol Use Standard Drinks/Week Comments Yes 0 (1 standard drink = 0.6 oz pure alcoho l) Social Sex Assigned at Date Recorded Not on file documented as of this encounter Progress Notes Gurdeep Sorto - 06/05/2010 10:08 AM LOCOMOTIVE LUBRICATING SYSTEMS CLERK FINAL PREOPERATIVE DIAGNOSIS: Right labial nodule expanding and painful. POSTOPERATIVE DIAGNOSIS: Right labial nodule expanding and painful. PROCEDURE: Excision of right labial nodule. SURGEON: Gurdeep Sorto MD ESTIMATED BLOOD LOSS: 10 mL ANESTHESIA: General LMA. FINDINGS: Small about 1.5 cm x 1 cm right labial nodule felt underneath the skin. SPECIMENS: Subcutaneous nodule submitted to pathology for permanent section. COMPLICATIONS: None. TECHNICAL DESCRIPTION: Aileen Christian was seen in the clinic for an expanding and painful right labial nodule that she noticed about 4 months ago. She mentioned it was expanding and wanted it to be removed. We discussed the risks of the procedure in detail. She understood that the scar tissue could also produce sensation of a nodule in that area. She understood that a nodule like this could come back. She wished to proceed and signed a consent form. She was taken to the operating room where general anesthesia was induced. She was prepped and draped in normal sterile fashion [facility]. Sequential compressiondevices were on the lower extremities. One gram of Ancef was given preoperatively. Timeout was completed. The right labial nodule was easily palpated underneath the skin in the upperportion of the right labia majora. The skin around it was injected with 0.25% Marcaine and a longitudinal incision was made right over the nodule. The skin was dissected off the underlying nodule in the subcutaneous tissues. The nodule was grasped with an Allis clamp and its attachments to the subcutaneous tissues were removed. The nodule was taken out and it was submitted to pathology for permanent section. Hemostasis was achieved with pressure and Bovie fulguration in the bed of the nodule. Several 3-0 Vicryl sutures were used for subcutaneous reapproximation of the subcutaneous tissues. Once this was done, hemostasis was again noted. The skin was closed with two 4-0 Vicryl sutures in a subq fashion and the skin was also closed with Dermabond. The patient tolerated the procedure well. She was extubated in the operating room and taken to the recovery room in stable condition. No complications were encountered. Electronically signed on 06/05/2010 10:07 by GUREDEP SORTO MD MT: PP Name: AILEEN CHRISTIAN MRN: [id number] Account: [id number] : 1970 Procedure Date: 05/31/2010 Document: [id number] MOTIVE LUBRICATING SYSTEMS CLERK documented in this encounter Plan of Treatment Not on filedocumented as of this encounter Visit Diagnoses Not on filedocumented in this encounter Care Teams Customer Service Teller Relationship Specialty Start Date End Date Prodzinski, Devin D, DO PCP - General 04/18/05 09/04/11 [address] [place] [address] Damian Dowell MD PCP - Surgery 05/08/04 03/14/[address] [address] Collin Singh MD PCP - Orthopaedics 01/23/0602/19/18 documented as of this encounter
--- OUTSIDE RECORDS SUMMARY | 2022-02-06 08:55 | XMS_ITS | Encounter Summary ---
:1970 Author Organization [facility] Address [address] [place] [address] Care Team Providers Name Role Phone Damian Dowell MD Unavailable Collin Singh MD Unavailable Unavailable Allison mSyth Primary Care Provider Reason for Visit Reason Comments Rib Pain Encounter Details Date Type Department Care Team Description 09/19/2013 - Emergency [facility] Pauline Cosby MD Chest wall pain 09/20/2013 [facility] EMERGENCY PHYSICIANS (Pr imary Dx) Dept [place] [address] [facility] [address] [place], [place] [id number] [phone] Social History Tobacco Use Types Packs/Day Years Used Date Smoking Tobacco: Every Day Cigarettes 1 10 Alcohol Use Standard Drinks/Week Comments Yes 0 (1 standard drink = 0.6 oz pure alcoho l) Social Sex Assigned at Date Recorded Not on file documented as of this encounter Last Filed Vital Signs Vital Sign Reading Time Taken Comments Blood Pressure 139/98 09/20/2013 12:38 AM CDT Pulse - - Temperature 37 ??C (98.6 ??F) 09/19/2013 8:33 PM CDT Respiratory Rate 16 09/19/2013 8:33 PM CDT Oxygen Saturation 99% 09/20/2013 12:39 AM CDT Inhaled Oxygen Concentration - - Weight 95.3 kg (210 lb) 09/19/2013 8:33 PM CDT Height 170.2 cm (5' 7) 09/19/2013 8:33 PM CDT Body Mass Index 32.89 09/19/2013 8:33 PM CDT documented in this encounter Discharge Instructions Discharge InstructionsPauline Cosby MD - 09/20/2013 12:35 AM CDT Return to the Emergency department right away for fever, worsened symptoms, or difficulty breathing.Take ibuprofen and pain medication as needed and follow up with surgery as recommended. If you feel your condition has changed or worsened, please call your doctor or return to the emergency department right away. Opioid Medication Information You have been given a prescription for an opioid (narcotic) pain medicine and/or have received a pain medicine while here in the Emergency Department. These medicines can make you drowsy or impaired. You must not drive, operate dangerous equipment, or engage in any other dangerous activities while taking these medications. If you drive while taking these medications, you could be arrested for DUI, ordriving under the influence. Do not drink any alcohol while you are taking these medications. Opioid pain medications can cause addiction. If you have a history of chemical dependency of any type, you are at a higher risk of becoming addicted to pain medications. Only take these prescribed medications to treat your pain when all other options have been tried. Take it for as short a time and asfew doses as possible. Store your pain pills in a secure place, as they are frequently stolen and provide a dangerous opportunity for children or visitors in your house to start abusing these powerful medications. We will not replace any lost or stolen medicine. As soon as your pain is better, you should flush all your remaining medication. Many prescription pain medications contain Tylenol?? (acetaminophen), including Vicodin??, Tylenol #3??, Law[place]??, Lortab??, and Percocet??. You should not take any extra pills of Tylenol?? if you are using these prescription medications or you can get very sick. Do not ever take more than 4000 mg of acetaminophen in any 24 hour period. All opioids tend to cause constipation. Drink plenty of water and eat foods that have a lot of fiber, such as fruits, vegetables, prune juice, apple juice and high fiber cereal. Take a laxative if you don???t move your bowels at least every other day. Miralax??, Milk of Magnesia, Colace??, or Senna?? can be used to keep you regular. documented in this encounter Medications at Time of Discharge Medication Sig Dispensed Refills Start Date End Date albuterol (PROAIR HFA, Inhale 2 puffs into 0 PROVENTIL HFA, VENTOLIN the lungs every 6 HFA) 108 (90 BASE) hours MCG/ACT inhaler Metoprolol Succinate Take 50 mg by mouth 0 (TOPROL XL PO) daily VALTREX 1 GM OR 2 po q 12 hours x 1 40 5 04/25/2005 TABSIndications: Herpes day at first sign of simplex without mention lesion of complication, Other acne HYDROcodone-acetaminophe Take 1-2 tablets by 15 tablet 0 10/02/2020 n (NORCO) 5-325 MG per mouth every 4 hours tablet as needed for moderate to severe pain documented as of this encounter ED Notes Elissa Cartwright - 09/20/2013 12:02 AM CDT Pt ambulated to bathroom and back to bed. No difficulty noted. Elissa Cartwright - 09/19/2013 10:48 PM CDT Pt back from CT scan. Elissa Cartwright - 09/19/2013 10:30 PM CDT Pt escorted to CT scan via cart w/ transport. Resting comfortably in bed. Pauline Cosby MD - 09/19/2013 9:14 PM CDT History Chief Complaint: Rib Pain. HPI Aileen Sloan is a 43 year old female with a history of asthma, major depressive disorder, and hypertension who presents to the ER at 2032 for evaluation of rib pain. The patient's right axilla and right rib upper rib region, just beneath her right breast, began hurting and feel[ing] bruised about two weeks ago. The patient suspects her tenderness and pain is associated with her recent increasedphysical activity (pulling tree stumps and other outdoor work). She notes movement, as well as deep breathing, has exacerbated her pain for the last two weeks and her worsening pain finally prompted her visit to the ER today. She complains of intermittent feverish feelings, intermittent right lower leg pain, and a recent rash on her left arm that has resolved on its own. She further notes her pain radiates toward her right nipple and prevents her from moving comfortably. Of note, the patient currently has silicone breast implants in place from 1990. She regularly follows up with Dr. Meeks at [facility]. The patient voices no other concerns or complaints at this time. PE/DVT Risk Factors: The patient denies a personal and family history of PE, DVT, or other clotting disorders. She deniesany recent travel, surgery, or other prolonged immobilization. She is not . She does use Depo-Provera control medication. She denies a personal history of cancer. She does currently smoke. Allergies: The patient reports no known allergies. Medications: Valtrex. Albuterol. Toprol XL. Past Medical History: Hypertension. Traumatic shock. Major depressive disorder. Migraine with aura. Myalgia and myositis. Kidney calculus. Pyelonephritis. Acute parametritis. Irritable colon. Acne. Back ache. Past Surgical History: Silicone breast implants. Tonsillectomy. Right menisectomy. Cholecystectomy. Family / Social History: Mother- Positive for uterine fibroids. Father- Positive for prostatic cancer. Social History: The patient is a currently every day smoker, 1.0 ppd. She reports alcohol use. Review of Systems Constitutional: Positive for fever (subjective). Respiratory: Positive for right rib pain, worse with deep breathing. Skin: Positive for rash (resolved). 10 point review of systems performed and is negative except as above and in HPI. Physical Exam First Vitals: BP: 143/111 mmHg Heart Rate: 93 Temp: 98.6 ??F (37 ??C) Resp: 16 Height: 170.2 cm (5' 7) Weight: 95.255 kg (210 lb) SpO2: 93 % Physical Exam General: Resting on the gurney, appears uncomfortable Head: The scalp, face, and head appear normal Eyes: The pupils are equal, round, and reactive to light There is no nystagmus Conjunctivae normal ENT: Nose: The nose is normal, without drainage or discharge. Ears: Ears/pinnae are normal Mouth/Throat: The oropharynx is normal Mucus membranes are moist Neck: Normal range of motion. There is no rigidity. Trachea is in the midline and normal. No mass detected. CV: Regular rate Normal S1 and S2 No pathological murmur Resp: Breath sounds clear and equal bilaterally Non-labored, no retractions or accessory muscle use No coarseness No wheezing GI: Abdomen is soft, no rigidity No distension. No rebound tenderness. No guarding. Non-surgical without peritoneal features. RUQ: Normal Epigastrium: Normal LUQ: Normal RLQ: Normal Suprapubic: Normal LLQ: Normal MS: Normal muscular tone. No major joint effusions. No leg swelling. No calf tenderness. Normal motor assessment of all extremities. Good capillary refill noted. Breast: Right Breast: Tender on the lateral inferior aspect of the implant. No bruising. No evidence of injury in this area. No implant deformity. No redness. No evidence of infection. Skin: No rash or lesions noted. Neuro: Speech is normal and fluent. No apparent deficit. Psych: Awake. Alert. Normal affect. Appropriate interactions. Emergency Department Course Imaging: CT Chest Pulmonary Embolism w Contrast: 1. No evidence for pulmonary embolism or thoracic aortic dissection. 2. Mild infiltrate or atelectasis at both lung bases posteriorly. 3. A small amount of fluid is noted along the posterior aspect of the right breast implant, however this appearance is not convincing for breast implant rupture. Please clinically correlate. Per Radiology. The patient was informed of these findings. Interventions: NS, 1000mL, IV. Ibuprofen, 600mg, PO. ED Course: After reviewing nursing notes and the patient's past medical history, I examined the patient here inthe emergency department. I discussed with her the plan of care including CT imaging and she was in agreement with this plan. Recheck. The patient is resting comfortably. I discussed with the patient the results of the above procedures and she will be discharged to home with a prescription for Vicodin. All questions were answered prior to discharge, and the patient was told to follow up with primary care per discharge instructions. Reasons for return as well as follow up were reviewed with the patient. She understands and agrees to this plan. Impression & Plan Medical Decision Making: Aileen Sloan is a 43 year old female who presents to the emergency department for evaluation of right sided chest wall pain inferior to the right breast. The patient does has a breast implant and is worried about possible rupture. She has noted pain with moving, deep breaths, and palpation of the r ight lateral chest. A CT/PE study was obtained which was negative for PE. There was a small fluid collection inferior to the right breast implant which may indicate possible rupture. There was no evidence of abscess. There was no acute trauma that would suggest bleeding in this area. I recommended thepatient follow up with her surgeon and that she return to the emergency department immediately for worsening pain, shortness of breath, or if she developed any fevers as this could be signs of more dangerous etiology. The patient had been doing yard work and her pain was reproducible with palpation ofthe chest wall; therefore, muscular strain is the most likely etiology and after discussion with the radiologist the breast implant findings may be incidental. The patient was given a surgical referralfor a follow up as she had her breast augmentation done in [place] many years ago and would not be able to follow up with her initial operating surgeon. The patient was comfortable with this plan and will follow up as instructed. Disposition Plan: The patient was discharged in stable condition. She was given return precautions and follow up instructions. She states understanding of these and has the ability to comply. Diagnosis: 1. (786.52) Chest wall pain (primary encounter diagnosis) Fazal Liang, am serving as a scribe on 09/19/2013 at 9:19 PM to personally document services performed by Dr. Cosby based on my observations and the provider's statements to me. Pauline Cosby MD 09/21/13 1146 Faby Hawkins RN - 09/19/2013 8:31 PM CDT right rib are pain for past 2 weeks after digging stumps,rocks and retaining wall... Pain increases with deep breath, movement No fever or chills ABC intact documented in this encounter Plan of Treatment Not on filedocumented as of this encounter Procedures Procedure Name Priority Date/Time Associated Diagnosis Comme nts CT CHEST PULMONARY STAT 09/19/2013 10:50 PM Re sults for this EMBOLISM W CONTRAST CDT procedur e are in the results section. documented in this encounter Results Chest CT, IV contrast only - PE protocol (09/19/2013 10:50 PM CDT) Anatomical Region Laterality Modality Chest, SUBRAD CT BODY, UMP CT CHEST Comp uted Tomography Specimen (Source) Anatomical Location Collection Method / Collectio n Time Received Time / Laterality Volume Impressions 09/21/2013 11:07 AM CDT IMPRESSION: 1. No evidence for pulmonary embolism or thoracic aortic dissection. ? 2. Mild infiltrate or atelectasis at bot h lung bases posteriorly. 3. A small amount of fluid is noted jack g the posterior aspect of the right breast implant, however this appea fran is not convincing for breast implant rupture. Please clinicall y correlate. ? MAJOR SILVEIRA MD Narrative 09/21/2013 11:[address] CHEST PULMONARY EMBOLISM WITH CONTRAST ?? 09/19/2013 10:50 PM HISTORY: Pleuritic pain. Evaluate for pu lmonary embolism. TECHNIQUE: 81 mL of Isovue 370 were inje cted without complication. After contrast injection, volumetric hel ical acquisition was performed from the thoracic inlet through the uppe r abdomen. Pulmonary embolism protocol was performed. COMPARISON: None. FINDINGS: ??No evidence for pulmonary em bolism. The thoracic aorta is of normal caliber, without evidence for thoracic aortic aneurysm or dissection. No pleural or pericardial ef fusions. No enlarged lymph nodes are identified in the chest. A few mildly prominent bilateral hilar and axillary lymph nodes do not me et size criteria for pathologic enlargement. Mild infiltrate or atelectasis is noted at both lung bases posteriorly. The lungs a re otherwise clear. Limited noncontrast views of the upper abdomen a re unremarkable. Bilateral breast implants are noted, with prominen t peripheral calcification on the left. A small amount of fluid is not ed along the posterior aspect of the right breast implant. ? Procedure Note Major Silveira MD - 09/21/2013Forma tting of this note might be different from the original. CT CHEST PULMONARY EMBOLISM WITH CONTRAS T 09/19/2013 10:50 PM HISTORY: Pleuritic pain. Evaluate for pu lmonary embolism. TECHNIQUE: 81 mL of Isovue 370 were inje cted without complication. After contrast injection, volumetric hel ical acquisition was performed from the thoracic inlet through the uppe r abdomen. Pulmonary embolism protocol was performed. COMPARISON: None. FINDINGS: No evidence for pulmonary embo lism. The thoracic aorta is of normal caliber, without evidence for thoracic aortic aneurysm or dissection. No pleural or pericardial ef fusions. No enlarged lymph nodes are identified in the chest. A few mildly prominent bilateral hilar and axillary lymph nodes do not me et size criteria for pathologic enlargement. Mild infiltrate or atelectasis is noted at both lung bases posteriorly. The lungs a re otherwise clear. Limited noncontrast views of the upper abdomen a re unremarkable. Bilateral breast implants are noted, with prominen t peripheral calcification on the left. A small amount of fluid is not ed along the posterior aspect of the right breast implant. IMPRESSION IMPRESSION: 1. No evidence for pulmonary embolism or thoracic aortic dissection. 2. Mild infiltrate or atelectasis at bot h lung bases posteriorly. 3. A small amount of fluid is noted jack g the posterior aspect of the right breast implant, however this appea fran is not convincing for breast implant rupture. Please clinicall y correlate. MAJOR SILVEIRA MD Pauline Cosby MD IMG CT ORDERABLES documented in this encounter Visit Diagnoses Diagnosis Chest wall pain - Primary Painful respiration documented in this encounter Administered Medications Inactive Administered Medications - up to 3 most recent administrations Medication Order MAR Action Action Date Dose Rate Site ibuprofen (ADVIL,MOTRIN) tablet Given 09/19/2013 8:38 PM CDT 600 mg 600 mg 600 mg, Oral, ONCE, On 09/19/13 at 2045, For 1 dose, Do not give within 6 hours of ketorolac (TORADOL). iopamidol (ISOVUE-370) 76% solution 500 mL Given 09/19/2013 10:34 PM CDT 81 mLs 500 mL, Intravenous, ONCE, On 09/19/13 at 2245, For 1 dose sodium chloride 0.9 % BOLUS 1,000 mL New Bag 09/19/2013 10:34 PM CDT 83 mLs Intravenous, 1,000 mL, ONCE, On 09/19/13 at 2245, For 1 dose documented in this encounter Active and Recently Administered Medications Times are shown in CDT. Scheduled Medication Order 09/18/2013 09/19/2013 09/20/2013 ibuprofen (ADVIL,MOTRIN) tablet 600 mg (COMPLETED) 2037 (Given - Provider: Faby Hawkins RN) 600 mg, Oral, ONCE, 09/19/13 at 2045, For 1 dose, Do not give within 6 hours of ketorolac (TORADOL). iopamidol (ISOVUE-370) 76% solution 500 mL (COMPLETED) 2233 (Given - Provider: Radha Valencia - Comment: bulk) 500 mL, Intravenous, ONCE, 09/19/13 at 2245, For 1 dose sodium chloride 0.9 % BOLUS 1,000 mL (COMPLETED) 2233 (New Bag - Provider: Radha Valencia - Comment: bulk)2237 (Stopped - Provider: Radha Valencia) Intravenous, 1,000 mL, ONCE, 09/19/13 at 2245, For 1 dose documented in this encounter Care Teams Equipment Maintenance Superintendent Relationship Specialty Start Date End Date Damian Dowell MD PCP - Surgery 05/08/04 03/14/14 [facility] [address] [place] [address] Collin Singh MD PCP - Orthopaedics 01/23/0602/19/18 Allison Smyth PCP - General Family Practice 09/19/13 08/27/20 documented as of this encounter
--- OUTSIDE RECORDS SUMMARY | 2022-02-06 08:55 | XMS_ITS | Encounter Summary ---
:1970 Author Organization [facility] Address [address] [place] [address] Care Team Providers Name Role Phone Devin Britt DO Primary Care Provider Damian Dowell MD Unavailable Collin Singh MD Unavailable Unavailable Frw, None Primary Care Provider Unavailable Allison Smyth Primary Care Provider Encounter Details Date Type Department Care Team Description 05/31/2010 Historic Results CONVERSION Provider, MD Toya Social History Tobacco Use Types Packs/Day Years [...] Name Priority Date/Time Associated Diagnosis Comme nts PATHOLOGY RESULT - [facility] 05/31/2010 8:25 AM [employer] - [facility] documented in this encounter Results PATHOLOGY RESULT - [facility] SCAN - ARCHIVE (05/31/2010 8:25 AM [employer]) Specimen (Source) Anatomical Location Collection Method / Collectio n Time Received Time / Laterality Volume Narrative This result has an attachment that is no t available. Toya Provider LAB - [facility] DER[facility]LES documented in this encounter Visit Diagnoses Not on filedocumented in this encounter Care Teams Intervention Specialist Relationship Specialty Start Date End Date Devin Britt DO PCP - General 04/18/05 09/04/11 [address] [place] [address] Damian Dowell MD PCP - Surgery 05/08/04 03/14/[address] [address] Collin Singh MD PCP - Orthopaedics 01/23/0602/19/18 Frw, None PCP - General Family Practice 09/05/11 09/18/13 Allison Smyth PCP - General Family Practice 09/19/13 08/27/20 documented as of this encounter
--- OUTSIDE RECORDS SUMMARY | 2022-02-06 08:55 | XMS_ITS | Encounter Summary ---
:1970 Author Organization [facility] Address [address] [place] [address] Care Team Providers Name Role Phone Devin Britt DO Primary Care Provider Damian Dowell MD Unavailable Collin Singh MD Unavailable Unavailable Encounter Details Date Type Department Care Team Description 10/31/2009 Emergency room [facility] Mónica Holm , [facility] Results MD EMERGENCY PHYSIC JAMIE WARE [address] [id number] (Wo rk) Social History Tobacco Use Types Packs/Day Years Used Date Smoking Tobacco: Every Day Cigarettes 1 10 Alcohol Use Standard Drinks/Week Comments Yes 0 (1 standard drink = 0.6 oz pure alcoho l) Social Sex Assigned at Date Recorded Not on file documented as of this encounter Progress Notes Mónica Holm - 11/21/2009 12:52 PM CDT FINAL CHIEF COMPLAINT: Rectal pain. HISTORY OF PRESENT ILLNESS: Aileen Christian is a 39-year-old female who presents for evaluation of the above. She has had rectal pain since a week ago. She got an internal hemorrhoid banded by Dr. Dawkins's office colorectal and has had pain since, some mucus has been coming out, intermittently some blood but not right now. No fevers. She has some pain with defecation. She had liquid stool. She is on astool softener, some Percocet as well for pain, but she is not taking it on a regular basis. REVIEW OF SYSTEMS: See HPI, all other systems are negative. ALLERGIES: None. MEDICATIONS: Percocet, MiraLax, Colace. PAST MEDICAL HISTORY: Hemorrhoids, irritable bowel, gallbladder. SOCIAL HISTORY: No smoking, here alone today. PHYSICAL EXAMINATION: VITAL SIGNS: Blood pressure 143/91, pulse 105, pressure, 20 temperature 98.0, O2 sat 100% on room air. GENERAL: The patient is alert, interactive when I enter the room. HEENT: Head is atraumatic. Conjunctivae are white. Nares without rhinorrhea or bleeding. Posterior pharynx moist, no erythema, no exudate. CARDIOVASCULAR: Regular rate and rhythm, S1, S2, no murmurs. RESPIRATORY: Clear bilaterally. GASTROINTESTINAL: Positive, normal bowel sounds. She has no tenderness to palpation in any quadrant. Very soft, benign abdomen without rebound or guarding. RECTAL: See anoscopy note below, normal external exam. No erythema surrounding the anus. No pain at the external part to palpation. NEUROLOGIC: Cr anial nerves are grossly intact. Speech is fluent. PSYCHIATRIC: No anxiety. LYMPHATICS: No neck lymphadenopathy. LABORATORY AND DIAGNOSTICS: None. PROCEDURE NOTE: Anoscopy. Informed verbal consent was obtained from the patient. The site was correctly identified. Local anesthesia was used with 2% lidocaine jelly. On digital rectal exam I could feel that the hemorrhoid was not prolapsed. The anoscope was introduced, the light was turned on, I visualized the internal hemorrhoid that was banded, it was grayish and it looked as if it was dying off.There is no surrounding erythema, no pus, no edema of the anal canal. The perirectal area as well looked clear without evidence of infection. The procedure was terminated. The patient tolerated the procedure well. There were no immediate complications. EMERGENCY DEPARTMENT COURSE AND MEDICAL DECISION MAKING: A 39-year-old female who presents for evaluation of rectal pain. She had an internal hemorrhoid banded. She now has a thrombosed internal hemorrhoid that is painful. I called someone on-call for Dr. Dawkins who thought it was okay at this point as there are no signs of infection. She certainly had no fevers or chills to suggest that she is having a perirectal infection, perforation or cellulitis. The patient is hemodynamically stable and looks well. She is going to go home and return if she gets fevers greater than 102 or increasing pain. She is going to call colorectal to get seen tomorrow. She is going to use Percocet and lidocaine jelly. She was reassured and that she should have this pain until the hemorrhoid falls off. DIAGNOSES: 1. Internal hemorrhoids. 2. Rectal pain. Electronically signed on 11/21/2009 12:52 by MÓNICA HOLM MD MT: [id number]#[id number] Name: AILEEN CHRISTIAN MRN: [id number] Account: [id number] : 1970 Visit Date: 10/31/2009 Document: [id number] documented in this encounter Plan of Treatment Not on filedocumented as of this encounter Visit Diagnoses Not on filedocumented in this encounter Care Teams Coloring Room Worker Relationship Specialty Start Date End Date Devin Britt DO PCP - General 04/18/05 09/04/11 [address] [place] [address] Damian Dowell MD PCP - Surgery 05/08/04 03/14/14 [facility] [address] [place] [address] Collin Singh MD PCP - Orthopaedics 01/23/0602/19/18 documented as of this encounter
--- OUTSIDE RECORDS SUMMARY | 2022-02-06 08:55 | XMS_ITS | Encounter Summary ---
:1970 Author Organization [place] Address [address] [place] [address] Care Team Providers Name Role Phone Lyndsey Guzman MD Primary Care Provider Encounter Details Date Type Department Care Team Description 09/11/2020 Orders Only [facility] Carine Smallwood Enco unter for Surgery Clinic screening for other [place] [address] [facility] viral diseases [address] [place], [place] [address] [phone] Social History Tobacco Use Types Packs/Day Years [...] Not on filedocumented as of this encounter Results Asymptomatic COVID-19 Virus (Coronavirus) by PCR (10/05/2020 9:10 AM CDT) Component Value Ref Test Analysis Performed At Patholo gist Range Method Time Signature COVID-19 Nasopharyngeal 10/05/2020 [place] Virus PCR to 9:16 AM CDT CLINICS [facility] [place] Source COVID-19 Test received-See 10/05/2020 INFECTIOUS Virus PCR to reflex to IDDL 12:58 PM DISEASES [facility] [place] - test SARS CoV2 CDT DIAGNOSTIC Result (COVID-19) Virus LABORATORY, RT-PCR [facility] Specimen (Source) Anatomical Collection Method Collection Time Re ceived Time Location / / Volume Laterality Specimen from 10/05/2020 9:10 10/05/2020 nasopharyngeal AM CDT 9:15 AM CDT structure (specimen) Carine Smallwood MD LAB - MICRO GENERAL ORDERABL ES Performing Organization Address City/State/ZIP Code Phon e Number INFECTIOUS DISEASES DIAGNOSTIC [address] [facility], [address] [address] LABORATORY, [facility] [address] [place] [address] documented in this encounter Visit Diagnoses Diagnosis Encounter for screening for other viral diseases documented in this encounter Care Teams Keg Varnisher Relationship Specialty Start Date End Date Lyndsey Guzman MD PCP - General Family Medicine 08/28/20 [facility] [address] [place] [address] documented as of this encounter
--- OUTSIDE RECORDS SUMMARY | 2022-02-06 08:55 | XMS_ITS | Encounter Summary ---
:1970 Author Organization [place] Address [address] [place] [address] Care Team Providers Name Role Phone Lyndsey Guzman MD Primary Care Provider Reason for Visit Reason Onset Date Comments Schedule Surgery 09/06/2020 Encounter Details Date Type Department Care Team Description 09/06/2020 Telephone [facility] Surgery Carine Van MD Schedule Surgery Clinic [place] [address] [facility] [address] [place] [address] [place] [address] [phone] Social History Tobacco Use Types Packs/Day Years [...] this encounter Miscellaneous Notes Telephone Encounter - Domitila Lux - 09/06/2020 11:19 AM CDT Type of surgery: LEFT THYROID LOBECTOMY, POSSIBLE TOTAL THYROIDECTOMY Location of surgery: [facility] Date and time of surgery: 10-09-20, 10:30 AM Surgeon: DR. HESTER Pre-Op Appt Date: PATIENT TO SCHEDULE Post-Op Appt Date: PATIENT TO SCHEDULE Packet sent out: GIVEN TO PATIENT Pre-cert/Authorization completed: Not Applicable Date: 09-06-20 *outpatient overnight* LEFT THYROID LOBECTOMY, POSSIBLE TOTAL THYROIDECTOMY GENERAL PT INST TO HAVE H&P WITH DR. GUZMAN 90 MINS REQ PA ASSIST NLG ALW documented in this encounter Plan of Treatment Not on filedocumented as of this encounter Visit Diagnoses Not on filedocumented in this encounter Care Teams Straw Boss Relationship Specialty Start Date End Date Lyndsey Guzman MD PCP - General Family Medicine 08/28/20 [facility] [address] [place] [address] documented as of this encounter
--- OUTSIDE RECORDS SUMMARY | 2022-02-06 08:55 | XMS_ITS | Encounter Summary ---
:1970 Author Organization [place] Address [address] [place] [address] Care Team Providers Name Role Phone Lyndsey Guzman MD Primary Care Provider Encounter Details Date Type Department Care Team Description [facility]/11[facility] CON[facility] Provider, Histor ica Social History Tobacco Use Types Packs/Day Years [...] Name Priority Date/Time Associated Diagnosis Comme nts XR CHEST 2 VIEWS Routine 05/13/2007 12:00 AM Resu lts for this HOPPER FEEDER procedure are i n the results section. documented in this encounter Results XR Chest 2 Views (05/13/2007 12:00 AM HOPPER FEEDER) Anatomical Region Laterality Modality Chest Digital Radiography Specimen (Source) Anatomical Location Collection Method / Collectio n Time Received Time / Laterality Volume Narrative 05/13/2007 12:00 AM HOPPER FEEDER See Historical Hospital Medical Record f or documentation Procedure Note Provider, Historical - 09/11/2020Formatt ing of this note might be different from the original. See Historical Hospital Medical Record f or documentation Historical Provider IMG DIAGNOSTIC IMAGING ORDER LESVIA documented in this encounter Visit Diagnoses Not on filedocumented in this encounter Care Teams Stem Processing Machine Operator Relationship Specialty Start Date End Date Lyndsey Guzman MD PCP - General Family Medicine 08/28/20 [facility] [address] [place] [address] documented as of this encounter
--- OUTSIDE RECORDS SUMMARY | 2022-02-06 08:55 | XMS_ITS | Encounter Summary ---
:1970 Author Organization [place] Address [address] [place] [address] Care Team Providers Name Role Phone Devin Britt DO Primary Care Provider Damian Dowell MD Unavailable Collin Singh MD Unavailable Unavailable Encounter Details Date Type Department Care Team Description 05/31/2010 Historic Results INTERFACED REPORT Gurdeep Sorto MD [address] [address] (Wo rk) Social History Tobacco Use Types [...] Procedure Name Priority Date/Time Associated Comments Diagnosis HEMOGLOBIN Routine 05/31/2010 10:35 Results for this AM MOUNTER FLUTES AND PICCOLOS procedure are i n the results section. HCG QUALITATIVE URINE Routine 05/31/2010 10:20 Re sults for this AM MOUNTER FLUTES [employer] PICCOLOS procedure are i n the results section. documented in this encounter Results Hemoglobin (05/31/2010 10:35 AM MOUNTER FLUTES [employer] PICCOLOS) athologist Signature Hemoglobin 14.7 11.7 - 15.7 MISYS g/dL Specimen Anatomical Collection Method Collection Time Receive d Time (Source) Location / / Volume Laterality 05/31/2010 10:35 05/31/2010 AM M[employer]ES [employer] PICCOLOS 10:39 AM MOUNTER FLUTES AND PICCOLOS Gurdeep Sorto MD LAB - BLOOD ORDERABLES Performing Organization Address City/State/ZIP Code Phon e Number MISYS HCG qualitative urine (05/31/2010 10:20 AM MOUNTER FLUTES AND PICCOLOS) P athologist Signature HCG Qual Urine Negative NEG MIS[place] Specimen Anatomical Collection Method Collection Time Receive d Time (Source) Location / / Volume Laterality 05/31/2010 10:20 05/31/2010 AM [employer]OUN[employer]ES [employer] PICCOLOS 10:24 AM MOUNTER FLUTES AND PICCOLOS Gurdeep Sorto MD LAB - URINE ORDERABLES Performing Organization Address City/[facility]/ZIP [facility] Phon e Number MISYS documented in this encounter Visit Diagnoses Not on filedocumented in this encounter Care Teams Pharmacy Messenger Relationship Specialty Start Date End Date Devin Britt DO PCP - General 04/18/05 09/04/11 [address] [place] [address] Damian Dowell MD PCP - Surgery 05/08/04 03/14/14 [facility] [address] [place] [address] Collin Singh MD PCP - Orthopaedics 01/23/0602/19/18 documented as of this encounter
--- OUTSIDE RECORDS SUMMARY | 2022-02-06 08:55 | XMS_ITS | Encounter Summary ---
:1970 Author Organization [facility] Address [address] [place] [address] Care Team Providers Name Role Phone Collin Singh MD Unavailable Unavailable Allison Smyth Primary Care Provider Encounter Details Date Type Department Care Team Description 06/16/2014 Hospital Pathology [facility] Nat Jacinto , [facility] PA-C Results [address] [place] [address] (Wo rk) Social History Tobacco Use Types [...] Name Priority Date/Time Associated Diagnosis Comme nts CYTOLOGY NON ACADEMIC DIRECTOR Routine 06/16/2014 3:15 PM Resul ts for this PLASTICS FABRICATOR OR WELDER procedure are i n the results section. documented in this encounter Results Cytology non strip catcher (06/16/2014 3:15 PM PLASTICS FABRICATOR OR WELDER) Component Value Ref Test Analysis Performed At [facility] Range Method Time Signature Copath Report Patient Name: AILEEN CHRISTIAN MR#: [id number] Specimen #: [id number] Collected: 06/16/2014 Received: 06/20/2014 Reported: 06/21/2014 14:46 Ordering Phy(s): NAT JACINTO SPECIMEN/STAIN PROCESS: Anal Pap ? Pap-Cyto x 1 ---- CYTOLOGIC INTERPRETATION: Anal Pap: ?? Negative for Intraepithelial Lesion or Maligna ncy Specimen Adequacy: Satisfactory for evaluation. -Transformation zone component absent. Electronically signed out by: Mehdi Kay M.D. Processed and screened at [facility] CLINICAL HISTORY: , GROSS: Anal Pap: ??Received 10 ml of colorless, hazy fluid, process ed as 1 Pap stained Autocyte. CPT Codes: A: 30131-[id number] TESTING LAB LOCATION: [facility] [address] ??[address] COLLECTION SITE: Client: ??Colon & Rectal Surgery [facility] Location: ??S356 (F) Specimen Anatomical Collection Method Collection Time Receive d Time (Source) Location / / Volume Laterality 06/16/2014 3:15 PM 5 8:54 PLASTICS FABRICATOR OR WELDER AM CDT Nat Jacinto PA-C LAB - OPTIME CLINICAL SPECIM EN Performing Organization Address City/State/ZIP Code Phon e Number [place] documented in this encounter Visit Diagnoses Not on filedocumented in this encounter Care Teams Zig Zag Spring Machine Operator Relationship Specialty Start Date End Date Collin Singh MD PCP - Orthopaedics 01/23/0602/19/18 Allison Smyth PCP - General Family Practice 09/19/13 08/27/20 documented as of this encounter
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
--- OUTSIDE RECORDS SUMMARY | 2022-02-06 08:55 | XMS_ITS | Encounter Summary ---
:1970 Author Organization [place] Address [address] [place] [address] Care Team Providers Name Role Phone Devin Britt DO Primary Care Provider Damian Dowell MD Unavailable Collin Singh MD Unavailable Unavailable Encounter Details Date Type Department Care Team Description 08/06/2009 Results Only [facility] farnaz Workman MD Hospital Results [facility] [address] [place], [place] [address] (Wo rk) Social History Tobacco Use Types [...] Name Priority Date/Time Associated Diagnosis Comme nts HC CHEST TWO VIEWS, Routine 08/06/2009 5:18 PM Re sults for this FRONT/LAT CDT procedure are i n the results section. HC US ABDOMEN Routine 08/06/2009 5:13 PM Results for this COMPLETE CDT procedure are i n the results section. documented in this encounter Results CHEST X-RAY 2 VW (08/06/2009 5:18 PM CDT) Anatomical Region Laterality Modality Other Specimen (Source) Anatomical Collection Method Collection Time Re ceived Time Location / / Volume Laterality 08/06/2009 5:18 PM CDT Impressions 08/07/2009 7:57 AM CDT CHEST TWO VIEW* Aug 06, 2009 5:18:00 PM HISTORY: Chest pain. FINDINGS: Negative. Major Bar MD GENERAL IMAGING SONO ABDOMEN COMPLETE (08/06/2009 5:13 PM CDT) Anatomical Region Laterality Modality Other Specimen (Source) Anatomical Collection Method Collection Time Re ceived Time Location / / Volume Laterality 08/06/2009 5:13 PM CDT Impressions 08/07/2009 8:17 AM CDT COMPLETE ABDOMINAL ULTRASOUND ??Aug 06, 2009 5:13:00 PM HISTORY: Abdominal pain, rule out cholec ystitis. COMPARISON: CT abdomen and pelvis 009. FINDINGS: ?? There is an approximately 1 cm gallstone at gallbladder neck region. Gallbladder wall is not thi ckened measuring 2.6 mm. There is a negative Willams's sign. Common hepatic duct measures 5.6 mm. Dis beka common bile duct is obscured by overlying bowel gas. Liver appears normal. Visualized portion of pancreas appears n ormal. Small portion of head as well as pancreatic tail obscured by o verlying bowel gas. Spleen appears normal measuring 11.0 cm in length. Right kidney appears normal measuring 11 .0 cm in length. Left kidney appears normal measuring 11. 4 cm length. No hydronephrosis. Proximal abdominal aorta and inferior ve na cava appear normal. IMPRESSION: Cholelithiasis. No gallbladd er wall thickening. Common hepatic duct diameter at upper limits of normal. Major Bar MD SPECIAL IMAGING STUDIES documented in this encounter Visit Diagnoses Not on filedocumented in this encounter Care Teams Slitter Creaser Slotter Helper Relationship Specialty Start Date End Date Devin Britt DO PCP - General 04/18/05 09/04/11 [address] [place] [address] Damian Dowell MD PCP - Surgery 05/08/04 03/14/14 [facility] [address] [address] Collin Singh MD PCP - Orthopaedics 01/23/0602/19/18 documented as of this encounter
--- OUTSIDE RECORDS SUMMARY | 2022-02-06 08:55 | XMS_ITS | Encounter Summary ---
:1970 Author Organization [place] Address [address] [place] [address] Care Team Providers Name Role Phone Devin Brtit DO Primary Care Provider Damian Dowell MD Unavailable Collin Singh MD Unavailable Unavailable Encounter Details Date Type Department Care Team Description 08/06/2009 Emergency room [facility] Mark Bar MD Hospital Results [facility] [address] [place], [place] [address] (Wo rk) Social History Tobacco Use Types Packs/Day Years Used Date Smoking Tobacco: Every Day Cigarettes 1 10 Alcohol Use Standard Drinks/Week Comments Yes 0 (1 standard drink = 0.6 oz pure alcoho l) Social Sex Assigned at Date Recorded Not on file documented as of this encounter Progress Notes Major Bar - 08/10/2009 11:51 PM CDT FINAL REVISED REPORT CHIEF COMPLAINT: Abdominal pain and chest pain. HISTORY OF PRESENT ILLNESS: Aileen Christian is a 39-year-old female who presents to the emergency department with pain that began at 4:00 a.m. to the xiphoid area and epigastric area radiating into theback. The pain is equivalent to kidney stone pain which she has experienced in the past. She took 1 mg of lorazepam which she had been given in the past for panic and anxiety and took about 8 Rolaids. This did not fix the problem, so she came into the emergency department. The patient's cardiac risk factors are positive for tobacco at 1 pack per day, negative for hyperlipidemia, negative for hypertension, negative for family history. She does not have diabetes. She comes into the emergency department with acute abdominal pain. She has had some fatty foods over the last few days. No history of gallstones in the past. REVIEW OF SYSTEMS: She has no headache. There is no neck pain. There is no shoulder pain. There is mild shortness of breath and there is a generalized feeling of panic, anxiety, pain and trouble breathing. She is noticeably worked up. All other systems are negative. PAST MEDICAL HISTORY: 1. Anxiety. 2. Hypertension (on one determination last week). MEDICATIONS: Ativan and Rolaids p.r.n. 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 Rarely uses alcohol, does not use street drugs. FAMILY HISTORY: Significant for cancer. She notes that her grandfather of lung cancer. She wasencouraged to not smoke, especially given his factor and her dad had complications of testicular cancer from which he at a young age. PHYSICAL EXAMINATION: VITAL SIGNS: Temperatures 98 degrees, blood pressure is 149/70, pulse is 98. Respiratory rate is approximately 20, oxygen saturations are 100% on room air. GENERAL: The patient is mildly anxious. At times she is panting. She appears much better after some IV lorazepam. She was also given some pain medication to help with her acute abdominal pain. HEENT: Eyes are normal without icterus. ENT is normal. CARDIOVASCULAR: Heart is in a regular rate and rhythm without murmur, rub or gallop. RESPIRATORY: The lungs are clear. ABDOMEN: Tender in the epigastrium and in the right upper quadrant. There is no obvious Willams sign. GENITOURINARY: Deferred. MUSCULOSKELETAL: There is no lower extremity edema, asymmetry calf tenderness. SKIN: There is no rash. NEUROLOGIC: Normal. PSYCHIATRIC: Anxious. LYMPH NODES: Normal. HOSPITAL COURSE: The patient had a 12-lead electrocardiogram performed. This was within normal limits. There was no evidence of ischemia or infarction detected. The patient's laboratory analysis directed at her liver and biliary system reveals a white count of 14.1 with a left shift and 81% polys. Joann ctrolytes are normal. LFTs are normal. Lipase, troponin and myoglobin are normal. The patient was noted on arrival... ADDENDUM: My dictation was truncated after the review of systems. HOSPITAL COURSE: A 12-lead EKG is obtained which shows normal sinus rhythm without evidence of ischemia or infarction. There is a PVC noted. She does have a mildly prolonged Q-T with a Q-Tc of 492 milliseconds. The patient remained persistently anxious. She was given another 1 mg of lorazepam for a total of 2 mg. She was titrated with pain control with some morphine. She was also given some Toradol 30 mg IV, 1 liter of saline wide open. Her vital signs remained with a pulse in the 92 to 94 range. Ultrasound in the Department of Radiology shows a large gallstone in the gallbladder neck of 1 cm without evidence of cholecystitis. The natural history of gallstone disease was discussed. I also discussed with her what she should return for, which are signs and symptoms consistent with ascending cholangitis. FINAL DIAGNOSIS: Biliary colic and cholelithiasis. DISPOSITION AND PLAN: Followup with Surgery. Percocet and ibuprofen as needed for pain. She can take her own Ativan as needed for anxiety. Return for fevers, chills, sweats, increasing abdominal pain to the emergency room. Revision: , , Document [id number], [id number] Electronically signed on 08/10/2009 23:50 by MAJOR BAR MD MT: [id number] Name: AILEEN CHRISTIAN Account: [id number] : 1970 Visit Date: 08/06/2009 Document: [id number] documented in this encounter Plan of Treatment Not on filedocumented as of this encounter Visit Diagnoses Not on filedocumented in this encounter Care Teams Assembler Radio And Electrical Relationship Specialty Start Date End Date Devin Britt DO PCP - General 04/18/05 09/04/11 [address] [place] [address] Damian Dowell MD PCP - Surgery 05/08/04 03/14/[address] [address] Collin Singh MD PCP - Orthopaedics 01/23/0602/19/18 documented as of this encounter
--- OUTSIDE RECORDS SUMMARY | 2022-02-06 08:55 | XMS_ITS | Encounter Summary ---
:1970 Author Organization [place] Address [address] [place] [address] Care Team Providers Name Role Phone Devin Britt DO Primary Care Provider Damian Dowell MD Unavailable Collin Singh MD Unavailable Unavailable Encounter Details Date Type Department Care Team Description 08/06/2009 Historic Results INTERFACED REPORT Major Bar MD [facility] [address] [place], [place] [address] (Wo rk) Social History [...] Procedure Name Priority Date/Time Associated Comments Diagnosis CBC WITH PLATELETS & STAT 08/06/2009 4:00 PM R esults for this DIFFERENTIAL CDT procedure are i n the results section. TROPONIN I STAT 08/06/2009 4:00 PM Results f or this CDT procedure are i n the results section. MYOGLOBIN STAT 08/06/2009 4:00 PM Results f or this CDT procedure are i n the results section. LIPASE STAT 08/06/2009 4:00 PM Results f or this CDT procedure are i n the results section. HCG QUALITATIVE STAT 08/06/2009 4:00 PM Result s for this CDT procedure are i n the results section. COMPREHENSIVE STAT 08/06/2009 4:00 PM Results for this METABOLIC PANEL CDT procedure ar e in the results section. documented in this encounter Results (ABNORMAL) CBC with platelets differential (08/06/2009 4:00 PM CDT) [facility] gist Method Time Signature MCV 91 78 - 100 [facility] fl MCH 30.5 26.5 - MISYS 33.0 pg MCHC 33.7 31.5 - MIS[facility] 36.5 g/dL RDW 12.7 10.0 - [facility] 15.0 % WBC 14.1 (H) 4.0 - MISYS 11.0 10e9/L RBC Count 4.62 3.8 - 5.2 MISYS 10e12/L Hemoglobin 14.1 11.7 - MISYS 15.7 g/dL Hematocrit 41.9 35.0 - MISYS 47.0 % % Neutrophils 81 (H) 40 - 75 % MISYS % Lymphocytes 13 (L) 20 - 48 % MISYS % Monocytes 5 0 - 12 % MISYS % Eosinophils 1 0 - 6 % MISYS % Basophils 0 0 - 2 % M[facility] Platelet Count 338 150 - 450 [facility] 10e9/L Absolute 11.4 (H) 1.6 - 8.3 M[facility] Neutrophil 10e9/L Absolute 1.8 0.8 - 5.3 M[facility] Lymphocytes 10e9/L Absolute 0.7 0.0 - 1.3 M[facility] Monocytes 10e9/L Absolute 0.2 0.0 - 0.7 M[facility] Eosinophils 10e9/L Absolute 0.0 0.0 - 0.2 [facility] Basophils 10e9/L Diff Method Automated M[facility] Method Specimen Anatomical Collection Method Collection Time Receive d Time (Source) Location / / Volume Laterality 08/06/2009 4:00 PM 0 4:11 CDT PM CDT Major Bar MD LAB - BLOOD ORDERABLES Performing Organization Address City/State/ZIP Code Phon e Number MISYS (ABNORMAL) Comprehensive metabolic panel (08/06/2009 4:00 PM CDT) athologist Signature Sodium 140 133 - 144 [facility] mmol/L Potassium 3.7 3.4 - 5.3 [facility] mmol/L Chloride 104 94 - 109 [facility] mmol/L Carbon Dioxide 27 20 - 32 [facility] mmol/L Glucose 116 (H) 60 - 99 [facility] mg/dL Urea Nitrogen 9 5 - 24 [facility] mg/dL Creatinine 0.77 0.52 - [facility] 1.04 mg/dL Comment: New IDMS-traceable calibration beginning 08/13/07 GFR Estimate 83 >60 mL/min/1.7m2 M[facility] GFR Estimate If Black >90 >60 mL/min/1.7m2 M [facility] Calcium 10.2 8.5 - 10.4 mg/dL M[facility] AST 37 0 - 45 U/L [facility] Protein Total 8.0 6.8 - 8.8 g/dL [facility] Anion Gap 8 6 - 17 mmol/L M[facility] Albumin 4.7 3.9 - 5.1 g/dL [facility] ALT 47 0 - 50 U/L [facility] Alkaline Phosphatase 80 40 - 150 U/L [facility] Bilirubin Total 0.3 0.2 - 1.3 mg/dL M[facility] Specimen Anatomical Collection Method Collection Time Receive d Time (Source) Location / / Volume Laterality 08/06/2009 4:00 PM 0 4:11 CDT PM CDT Major Bar MD LAB - BLOOD ORDERABLES Performing Organization Address City/State/ZIP Code Phon e Number MISYS Lipase (08/06/2009 4:00 PM CDT) athologist Signature Lipase 54 20 - 250 U/L M[facility] Specimen Anatomical Collection Method Collection Time Receive d Time (Source) Location / / Volume Laterality 08/06/2009 4:00 PM 0 4:11 CDT PM CDT Major Bar MD LAB - BLOOD ORDERABLES Performing Organization Address City/State/ZIP Code Phon e Number MIS[place] Troponin I (08/06/2009 4:00 PM CDT) athologist Signature Troponin I ES <0.012 0.000 - [facility] 0.034 ug/L Specimen Anatomical Collection Method Collection Time Receive d Time (Source) Location / / Volume Laterality 08/06/2009 4:00 PM 0 4:11 CDT PM CDT Major Bar MD LAB - BLOOD ORDERABLES Performing Organization Address City/State/ZIP Code Phon e Number MIS[place] Myoglobin (08/06/2009 4:00 PM CDT) P athologist Signature Myoglobin 103 <120 ug/L [facility] Specimen Anatomical Collection Method Collection Time Receive d Time (Source) Location / / Volume Laterality 08/06/2009 4:00 PM 0 4:11 CDT PM CDT Major Bar MD LAB - BLOOD ORDERABLES Performing Organization Address City/State/ZIP Code Phon e Number MISYS HCG qualitative (08/06/2009 4:00 PM CDT) Patholo gist Method Time Signature HCG Qualitative Negative NEG [facility] Serum Comment: This test provides a presumptive diagno sis of or non-. A confirmed diagnosis should on ly be made by a physician after all clinical and laboratory findings have b een evaluated. Specimen Anatomical Collection Method Collection Time Receive d Time (Source) Location / / Volume Laterality 08/06/2009 4:00 PM 0 4:11 CDT PM CDT Major Bar MD LAB - BLOOD ORDERABLES Performing Organization Address City/[facility]/ZIP Code Phon e Number MISYS documented in this encounter Visit Diagnoses Not on filedocumented in this encounter Care Teams Ornamental Metal Worker Apprentice Relationship Specialty Start Date End Date Devin Britt DO PCP - General 04/18/05 09/04/11 [address] [place] [address] Damian Dowell MD PCP - Surgery 05/08/04 03/14/14 [facility] [address] [place] [address] Collin Singh MD PCP - Orthopaedics 01/23/0602/19/18 documented as of this encounter
--- OUTSIDE RECORDS SUMMARY | 2022-02-06 08:55 | XMS_ITS | Encounter Summary ---
:1970 Author Organization [place] Address [address] [place] [address] Care Team Providers Name Role Phone Lyndsey Guzman MD Primary Care Provider Carine Smallwood MD Unavailable Encounter Details Date Type Department Care Team Description 10/02/2020 Travel Social History Tobacco Use Types Packs/Day [...] been in contact with No / Unsure 10/02/2020 4:53 PM CDT someone who was confirmed or suspected to have Coronavirus / COVID-19? documented as of this encounter Plan of Treatment Not on filedocumented as of this encounter Visit Diagnoses Not on filedocumented in this encounter Care Teams Associate Professor Of Archaeology Relationship Specialty Start Date End Date Lyndsey Guzman MD PCP - General Family Medicine 08/28/20 [facility] [address] [place] [address] Carine Smallwood MD Assigned Surgical Provider 09/17/20 [address] [facility] [address] [place] [address] documented as of this encounter
--- OUTSIDE RECORDS SUMMARY | 2022-02-06 08:55 | XMS_ITS | Encounter Summary ---
:1970 Author Organization [place] Address [address] [place] [address] Care Team Providers Name Role Phone Devin Britt DO Primary Care Provider Damian Dowell MD Unavailable Collin Singh MD Unavailable Unavailable Encounter Details Date Type Department Care Team Description 10/07/2010 Emergency room [facility] Ignacio Arevalo, Hospital Results MD EMERGENCY PHYSIC [facility] [address] [place], [place] [address] (Wo rk) Social History Tobacco Use Types Packs/Day Years Used Date Smoking Tobacco: Every Day Cigarettes 1 10 Alcohol Use Standard Drinks/Week Comments Yes 0 (1 standard drink = 0.6 oz pure alcoho l) Social Sex Assigned at Date Recorded Not on file documented as of this encounter Progress Notes Ignacio Arevalo - 10/07/2010 2:09 PM CDT FINAL CHIEF COMPLAINT: Right wrist pain. HISTORY OF PRESENT ILLNESS: Aileen Christian is a 40-year-old female who presents to the Emergency Department complaining of increased pain to her right wrist and hand. She states that she underwent carpal tunnel surgery a week and a half ago. She recently mowed the grass and believes she may have overdone it. She complains of increased pain to her right wrist and hand. She states she has run out of her pain medication. She denies any traumatic injuries. She does not have a splint. She denies any fever or chills, spreading redness, pus from the wound. She denies any other complaints. PAST MEDICAL HISTORY: The patient denies any significant medical problems. MEDICATIONS: She is on Depo-Provera. ALLERGIES: She has no known drug allergies. SOCIAL HISTORY: She does smoke cigarettes. FAMILY HISTORY: Noncontributory. REVIEW OF SYSTEMS: Problem specific negative. PHYSICAL EXAMINATION: GENERAL: The patient is alert and appropriate. VITAL SIGNS: Temperature 98.3, pulse was 92 on my exam, respiratory rate 16, blood pressure 150/99 and oxygen saturation 100% on room air. EXTREMITIES: The patient has a well healing postsurgical woundto the volar aspect of the right wrist. There is no significant erythema or swelling. No purulent drainage. No lymphangitis or lymphadenopathy. She has good range of motion. Tendon function is intact. Neurovascular function is intact distally. Remainder of exam is normal. EMERGENCY DEPARTMENT COURSE: There was no evidence of neurovascular compromise or an acute infectious process. She was fitted with a wrist splint and instructed to wear the wrist splint, ice, elevation. She was given 60 mg of Toradol IM and 1 Percocet p.o. prior to discharge. I gave her a prescriptionfor Percocet to take as needed, Motrin. Follow up with her surgeon as scheduled tomorrow. DIAGNOSIS: Right wrist and hand pain status post carpal tunnel surgery. Electronically signed on 10/07/2010 14:08 by IGNACIO AREVALO MD MT: [id number] Name: AILEEN CHRISTIAN MRN: [id number] Account: [id number] : 1970 Visit Date: 10/07/2010 Document: [id number] documented in this encounter Plan of Treatment Not on filedocumented as of this encounter Visit Diagnoses Not on filedocumented in this encounter Care Teams Operations Intelligence Superintendent Relationship Specialty Start Date End Date Devin Britt DO PCP - General 04/18/05 09/04/11 [address] [place] [address] Damian Dowell MD PCP - Surgery 05/08/04 03/14/[address] [address] Collin Singh MD PCP - Orthopaedics 01/23/0602/19/18 documented as of this encounter
--- OUTSIDE RECORDS SUMMARY | 2022-02-06 08:55 | XMS_ITS | Encounter Summary ---
:1970 Author Organization [place] Address [address] [place] [address] Care Team Providers Name Role Phone Devin Britt DO Primary Care Provider Damian Dowell MD Unavailable Collin Singh MD Unavailable Unavailable Encounter Details Date Type Department Care Team Description 05/31/2010 Hospital Pathology [facility] Results MD Marely [facility] [address] [place] [address] (Wo rk) Social History Tobacco Use [...] Procedure Name Priority Date/Time Associated Diagnosis Comme [facility] SURGICAL PATHOLOGY Routine 05/31/2010 12:00 AM Re sults for this EXAM HYPERION ADMINISTRATOR procedure are i n the results section. documented in this encounter Results Surgical pathology exam (05/31/2010 12:00 AM HYPERION ADMINISTRATOR) Component Value Ref Test Analysis Performed At [facility] Method Time Signature Copath Report Patient Name: AILEEN CHRISTIAN ARLENE MR#: [id number] Specimen #: [id number] Collected: 05/31/2010 Received: 05/31/2010 Reported: 06/01/2010 18:00 Ordering Phy(s): GURDEEP ARGUELLO SPECIMEN(S): Nodule, right labia FINAL DIAGNOSIS: Soft tissue, right labia, excision of mass - 1. ?Consistent with ruptured follicular cyst. 2. ? No evidence of malignancy. Electronically signed out by: Sheri Madrigal M.D. CLINICAL HISTORY: Labial mass, right side; expanding for last month. GROSS: The specimen is labeled right labial nodule and consists o f two unoriented fibrofatty soft tissue fragments measuring 0.5 x 0.3 x 0.3 cm and 1.3 x 0.8 x 0.3 cm. ??The larger piece is trisected and shows a winchester-white homogeneous cut surface. ??The specimen is entirel y submitted in one cassette. ??/emilio MICROSCOPIC: Microscopic examination was performed. ??The sections demons trate subcutaneous fibrofatty tissue showing granulation tissue an d exuberant mixed inflammatory infiltrate, comprised of neutrophils, lym phocyte, eosinophils, and plasma cells. ??Focal cystically dilated fo llicle is noted with adjacent foreign body-type giant cell reaction, m ost likely representing ruptured follicular cyst. ??There is no evidenc e of malignancy. /emilio /06-01-10 TESTING LAB LOCATION: [address] ??[id number] COLLECTION SITE: Client: [facility] Location: SDS (R) Specimen (Source) Anatomical Collection Method Collection Time Re ceived Time Location / / Volume Laterality 05/31/2010 05/31/2010 1:21 PM HYPERION ADMINISTRATOR Gurdeep FISCHER - HEATHER JERONIMO Performing Organization Address City/State/ZIP Code Phon e Number COPATH documented in this encounter Visit Diagnoses Not on filedocumented in this encounter Care Teams Facilities Specialist Relationship Specialty Start Date End Date Devin Britt, PCP - General 04/18/05 09/04/11 [address] [place] [address] Damian Dowell MD PCP - Surgery 05/08/04 03/14/[address] [address] Collin Singh MD PCP - Orthopaedics 01/23/0602/19/18 documented as of this encounter
--- OUTSIDE RECORDS SUMMARY | 2022-02-06 08:55 | XMS_ITS | Encounter Summary ---
:1970 Author Organization [facility] Address [address] [place] [address] Care Team Providers Name Role Phone Devin Britt DO Primary Care Provider Damian Dowell MD Unavailable Collin Singh MD Unavailable Unavailable Encounter Details Date Type Department Care Team Description 08/11/2009 Operative Report [facility] Ab Pat, (Renewals Representative) [facility] Results [address] [facility] [address] [place] [address] (Wo rk) Social History Tobacco Use Types Packs/Day Years Used Date Smoking Tobacco: Every Day Cigarettes 1 10 Alcohol Use Standard Drinks/Week Comments Yes 0 (1 standard drink = 0.6 oz pure alcoho l) Social Sex Assigned at Date Recorded Not on file documented as of this encounter Progress Notes Ab Pat - 08/17/2009 12:07 PM CDT FINAL SURGEON: Ab Pat MD DRY CLEANING CHECKER: JEANIE Grissom PREOPERATIVE DIAGNOSIS: Symptomatic cholelithiasis. POSTOPERATIVE DIAGNOSIS: Symptomatic cholelithiasis. PROCEDURE: Laparoscopic cholecystectomy. ANESTHESIA: General. INDICATIONS: Ms. Aileen Christian is a 39-year-old woman with symptomatic gallstones. After explaining to her the indications for surgery as well as risks and potential complications, she understood andconsented to a laparoscopic cholecystectomy. OPERATIVE PROCEDURE: The patient was given a general anesthetic and the abdomen was prepped and draped. A small vertical midline incision was made below the umbilicus, and using a Sondra technique, a 12-mm trocar was placed. Pneumoperitoneum was then obtained, and under direct vision, 3 additional tro cars were placed. An 11-mm trocar was placed in the subxiphoid position and two 5-mm trocars in the right subcostal positions. Through the lateral 2 ports, grasping forceps were placed and the gallbladder was retracted cephalad. There were some inflammatory adhesions to the gallbladder which were bluntly taken down. Once the stephanie hepatis was exposed, the cystic duct and cystic artery were identifiedwell away from the common hepatic duct which was nicely visualized. Both of these structures were triply clipped and divided between the middle and distal clip. The gallbladder was then taken from its bed retrograde using electrocautery. Once the gallbladder was removed from the liver, it was placed in an endocatch bag and brought out through the abdominal wall. The scope was reinserted and everything was checked for hemostasis. Everything was dry. I irrigated with saline and aspirated the irrigant. The trocar sites were all infiltrated with 0.5% Marcaine with epinephrine for postop pain control and the accessory trocars were removed. The pneumoperitoneum was then decompressed and the umbilical trocar was removed. The fascia there was closed with interrupted 0 Vicryl sutures. The skin incisions were all closed with 4-0 Vicryl subcuticular sutures and Steri-Strips. Dressings were applied and thepatient went to recovery in good condition. Total blood loss was minimal. Sponge and needle counts were correct x2. Electronically signed on 08/17/2009 12:06 by AB PAT MD MT: [id number] Name: AILEEN CHRISTIAN MRN: [id number] Account: [id number] : 1970 Procedure Date: 08/11/2009 Document: [id number] documented in this encounter Plan of Treatment Not on filedocumented as of this encounter Visit Diagnoses Not on filedocumented in this encounter Care Teams Overcaster Relationship Specialty Start Date End Date Devin Britt, PCP - General 04/18/05 09/04/11 [address] [place] [address] Damian Dowell MD PCP - Surgery 05/08/04 03/14/[address] [address] Collin Singh MD PCP - Orthopaedics 01/23/0602/19/18 documented as of this encounter
--- OUTSIDE RECORDS SUMMARY | 2022-02-06 08:55 | XMS_ITS | Encounter Summary ---
:1970 Author Organization [place] Address [address] [place] [address] Care Team Providers Name Role Phone Devin Britt DO Primary Care Provider Damian Dowell MD Unavailable Collin Singh MD Unavailable Unavailable Encounter Details Date Type Department Care Team Description 08/06/2009 Historic Results INTERFACED REPORT Interface, Transcraj shrestha MD Social History Tobacco Use Types Packs/Day Years [...] Name Priority Date/Time Associated Diagnosis Comme nts EKG 12 LEAD Routine 08/06/2009 3:51 PM Results f or this CDT procedure are i n the results section . documented in this encounter Results EKG 12 LEAD (08/06/2009 3:51 PM CDT) Component Value Ref Range Test Analysis Performed Pathologis t Method Time At Signature Ventricular Rate 94 BPM RADIOLOGY RESULTS Atrial Rate 94 BPM RADIOLOGY RESULTS ID Interval 148 ms RADIOLOGY RESULTS QRS Duration 74 ms RADIOLOGY RESULTS QT 394 ms RADIOLOGY RESULTS QTc 492 ms RADIOLOGY RESULTS P Sullivan 60 degrees RADIOLOGY RESULTS R AXIS 57 degrees RADIOLOGY RESULTS T Sullivan 51 degrees RADIOLOGY RESULTS Interpretation Sinus rhythm with Possible P remature atrial complexes with Aberrant conduction RADIOLOGY ECG Prolonged QT RESULTS Abnormal ECG Unconfirmed report - interpretation of this ECG is compute r generated - see medical record for final interpretation Specimen Anatomical Collection Method Collection Time Receive d Time (Source) Location / / Volume Laterality 08/06/2009 3:51 PM 0 CDT 12:47 PM CDT Transcripton Interface ECG ORDERABLES Performing Organization Address City/State/ZIP Code Phon e Number RADIOLOGY RESULTS documented in this encounter Visit Diagnoses Not on filedocumented in this encounter Care Teams Leg Assembler Relationship Specialty Start Date End Date Devin Britt DO PCP - General 04/18/05 09/04/11 [address] [place] [address] Damian Dowell MD PCP - Surgery 05/08/04 03/14/14 [facility] [address] [place] [address] Collin Singh MD PCP - Orthopaedics 01/23/0602/19/18 documented as of this encounter
--- OUTSIDE RECORDS SUMMARY | 2022-02-06 08:55 | XMS_ITS | Encounter Summary ---
:1970 Author Organization [place] Address [facility] [place] [address] Care Team Providers Name Role Phone Collin Singh MD Unavailable Unavailable Allison Smyth Primary Care Provider Encounter Details Date Type Department Care Team Description 05/25/2016 Telephone [facility] [employer] Maral Saleh, RN [address] [place] [address] Social History Tobacco Use Types Packs/Day Years Used Date Smoking Tobacco: Every Day Cigarettes 1 10 Alcohol Use Standard Drinks/Week Comments Yes 0 (1 standard drink = 0.6 oz pure alcoho l) Social Sex Assigned at Date Recorded Not on file documented as of this encounter Miscellaneous Notes Telephone Encounter - Maral Saleh RN - 05/25/2016 11:14 AM CST Call Type: Triage Call Presenting Problem: I had an episode of severe, twisting sharp attack of abdominal pain, yesterday morning when I was straining to have a bowel movement. It was the worst pain I have ever had. Today it still hurts when I move, but not as much. Its on the lower left hand side, I know I have an ovarian cyst there, I don't know if its that or not. I also have chills, nausea and have seen bright red blood in the toilet with my next several bowel movements. Advised to go to UC/ED. Triage Note: Guideline Title: Gastrointestinal Bleeding Recommended Disposition: See Provider within 4 hours Original Inclination: Wanted to speak with a nurse Override Disposition: Intended Action: Go to Urgent Care Center Physician Contacted: No One or more episodes of rectal bleeding (more than scant) and no symptoms of hypovolemia ? YES New or worsening signs and symptoms that may indicate shock ? NO Vomited blood after nosebleed ? NO Receiving or recently completed chemotherapy or radiation therapy AND more than one episode of black or tarry stool, not blood streaked ? NO Rectal foreign body with any amount of bright red bleeding ? NO Following ingestion of toxic or caustic substance ? NO Passing red, black or tarry material from rectum AND onset of new signs and symptoms of hypovolemia ? NO Unbearable abdominal/pelvic pain ? NO Vomiting red, bloody or coffee-ground material, more than streaks of blood or scant amount (not following nosebleed within past day) ? NO Streaks of blood or scant blood in vomitus ? NO Chest discomfort associated with shortness of breath, sweating, odd heartbeats or different heart rate, nausea, vomiting, lightheadedness, or fainting lasting 5 or more minutes now or within the last hour ? NO Chest pain spreading to the shoulders, neck, jaw, in one or both arms, stomach or back lasting 5 or more minutes now or within the last hour. Pain is NOT associated with taking a deep breath or a productive cough, movement, or touch to a localized area. ? NO Pressure, fullness, squeezing sensation or pain anywhere in the chest lasting 5 or more minutes now or within the last hour. Pain is NOT associated with taking a deep breath or a productive cough, movement, or touch to a localized area on the chest. ? NO Bloody diarrhea AND has not been evaluated ? NO Bleeding began after any gastrointestinal (GI) surgery or procedure and is lasting longer than defined in provider specified discharge information ? NO History of esophageal varices AND more than one episode of black or tarry stool ? NO Eight hours or less following abdominal or rectal injury AND having any amount bright red rectal bleeding ? NO Physician Instructions: Care Advice: IMMEDIATE ACTION PREPARATION SUPERVISOR documented in this encounter Plan of Treatment Not on filedocumented as of this encounter Visit Diagnoses Not on filedocumented in this encounter Care Teams Fabric Worker Foreman Relationship Specialty Start Date End Date Collin Singh MD PCP - Orthopaedics 01/23/0602/19/18 Allison Smyth PCP - General Family Practice 09/19/13 08/27/20 documented as of this encounter
--- OUTSIDE RECORDS SUMMARY | 2022-02-06 08:56 | XMS_ITS | Encounter Summary ---
:1970 Author Organization [facility] Address [address] [place] [address] Care Team Providers Name Role Phone Devin Britt DO Primary Care Provider Damian Dowell MD Unavailable Collin Singh MD Unavailable Unavailable Reason for Visit Reason Comments Knee Pain rt knee Encounter Details Date Type Department Care Team Description 01/22/2006 Office Visit [facility] Collin Singh, INT DE RANGEMENT KNEE System in Willem Ramírez MD (Primary Dx) Orthopedics [address] [place] [address] Social History Tobacco Use Types Packs/Day Years Used Date Smoking Tobacco: Every Day Cigarettes 1 10 Alcohol Use Standard Drinks/Week Comments Yes 0 (1 standard drink = 0.6 oz pure alcoho l) Social Sex Assigned at Date Recorded Not on file documented as of this encounter Patient Instructions Patient InstructionsCollin Singh MD - 01/22/2006 12:06 PM CDT See dictated note. Collin Singh MD documented in this encounter Progress Notes Collin Singh MD - 01/27/2006 12:12 PM CDT CLINIC ENCOUNTER This 35-year-old woman comes in to talk about her right knee. The patient originally presented with signs and symptoms suggestive of a torn meniscus in the right knee in April of this year and ended up having an MRI scan and seeing Dr. Key. 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 The patient underwent arthroscopic surgery by Dr. Key on May 06. Dr. Key's operative note as well as the intraoperative pictures are reviewed. The patient states that after the initial swelling phase she was better for maybe about three weeks subsequent to the surgery, but then it seemed to go back to pretty much the way it was. She was in to see Naa a couple of times, had an injection into the knee once, which she said helped just for maybe a few days. The patient also saw Elisabeth Dawkins in physical therapy a couple of times. The patient's situation is also complicated by the fact that she has the diagnosis of fibromyalgia and was referred by Dr. Britt to the pain clinic. Also has used Ultram. The patient apparently had gone through a pain clinic about 15 years ago at [facility]. The patient's work is [employer] and states she works about six to eight hours a day. There is some up and down from a squatting position and she feels a crepitant feeling in her right knee when doing so. She also says it bothers her sometimes when she twists to one way or the other. I could not really tell if this was more an external or an internal rotation twist. The patient complains of this pain mainly in the area of about the inferomedial aspect of the parapatellar region. PHYSICAL EXAMINATION: On examination today, the patient has full range of motion in the knee. She has no effusion. She does not really seem to have significant retropatellar crepitation, but there may be a little crepitation in the region of the anteromedial fat pad when the patient goes into a squat. She has a little bit of pain on external rotation of the tibia on the femur in the same area. She does not have particular apprehension on lateral subluxation of the patella, but does have tenderness along the patellofemoral region medially for about the inferior one-half of the patella and down to the tibia. There is also a little bit of tenderness in the mid medial joint line. The patient's overall extremity alignment looks quite good. The patient does have some pes pronation and does have some tight heel cords when checked with the talocalcaneal joint appropriately locked. She has good painless range of motion of the hips. IMPRESSION: Status post right partial medial meniscectomy with some persistent symptoms in a patient who does have a history of pain related problems and fibromyalgia. 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 Also, I gave her some heel cord stretching exercises to do. Finally, we decided to go ahead and inject the knee once more and this was done from a lateral superior parapatellar approach with a total of 1 cc Aristospan, 0.5 cc of Decadron, about 2 cc of Xylocaine and 6 cc of Marcaine. The patient afterwards said the knee really did feel quite a bit better. The patient is going to continue working on quadriceps strengthening. I told her that if she still fails to get better over a period of time we might consider an MRI scan, but my impression at this point is that I would be hesitant to recommend further surgery unless we found something pretty definite. In this patient I would be very hesitant to try to achieve pain relief with any kind of opiate or opioid. I am wondering if we are to a certain degree dealing with a regional pain syndrome. Collin Singh M.D. MANOLO/gretta cc: Collin Singh MD - 01/22/2006 12:02 PM CDT This office note has been dictated. Collin Singh MD documented in this encounter Nursing Notes 01/22/2006 10:30 AM CDT >> SHONA COSTA 01/22/2006 10:45 am Pt had knee scope done April 2005. 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 A lot of pain after work. Has seen by naa in the past, had cortisone injection which did not seem to help documented in this encounter Plan of Treatment Not on filedocumented as of this encounter Procedures Procedure Name Priority Date/Time Associated Diagnosis Comme nts HC DRAIN/INJ MAJOR Routine 01/22/2006 12:04 PM CDT INT DERANGE MENT KNEE JOINT/BURSA W/O US documented in this encounter Visit Diagnoses Diagnosis INT DERANGEMENT KNEE - Primary Other internal derangement of knee documented in this encounter Care Teams Link Fabric Machine Operator Relationship Specialty Start Date End Date Devin Britt DO PCP - General 04/18/05 09/04/11 [address] [place] [address] Damian Dowell MD PCP - Surgery 05/08/04 03/14/14 [facility] [address] [place] [address] Collin Singh MD PCP - Orthopaedics 01/23/0602/19/18 documented as of this encounter
--- OUTSIDE RECORDS SUMMARY | 2022-02-06 08:56 | XMS_ITS | Encounter Summary ---
:1970 Author Organization [place] Address [address] [place] [address] Care Team Providers Name Role Phone Devin Britt DO Primary Care Provider Damian Dowell MD Unavailable Collin Singh MD Unavailable Unavailable Encounter Details Date Type Department Care Team Description 07/09/2008 Historic Results INTERFACED REPORT Pierre Mon MD [address] [place] [address] Social History Tobacco Use Types Packs/Day Years [...] Comments Diagnosis CBC WITH PLATELETS & STAT 07/09/2008 8:18 PM R esults for this DIFFERENTIAL CDT procedure are i n the results section. HCG QUANTITATIVE STAT 07/09/2008 8:18 PM Resul ts for this CDT procedure are i n the results section. ABO/RH TYPE AND STAT 07/09/2008 8:18 PM Result s for this SCREEN CDT procedure are i n the results section. ROUTINE UA WITH STAT 07/09/2008 8:10 PM Result s for this MICROSCOPIC CDT procedure are i n the results section. documented in this encounter Results (ABNORMAL) CBC with platelets differential (07/09/2008 8:18 PM CDT) [facility] Method Time Signature MCV 92 78 - 100 MISYS fl MCH 30.9 26.5 - MISYS 33.0 pg MCHC 33.5 31.5 - MISYS 36.5 g/dL RDW 12.6 10.0 - MISYS 15.0 % WBC 6.2 4.0 - MISYS 11.0 10e9/L RBC Count 4.47 3.8 - 5.2 MISYS 10e12/L Hemoglobin 13.8 11.7 - MISYS 15.7 g/dL Hematocrit 41.2 35.0 - MISYS 47.0 % % Neutrophils 71 40 - 75 % MISYS % Lymphocytes 15 (L) 20 - 48 % MISYS % Monocytes 10 0 - 12 % MISYS % Eosinophils 3 0 - 6 % MISYS % Basophils 1 0 - 2 % MISYS Platelet Count 263 150 - 450 MISYS 10e9/L Absolute 4.5 1.6 - 8.3 MISYS Neutrophil 10e9/L Absolute 0.9 0.8 - 5.3 MISYS Lymphocytes 10e9/L Absolute 0.6 0.0 - 1.3 MISYS Monocytes 10e9/L Absolute 0.2 0.0 - 0.7 MISYS Eosinophils 10e9/L Absolute 0.0 0.0 - 0.2 MISYS Basophils 10e9/L Diff Method Automated MISYS Method Specimen Anatomical Collection Method Collection Time Receive d Time (Source) Location / / Volume Laterality 07/09/2008 8:18 PM 200 9 8:03 CDT PM CDT Pierre Mon MD LAB - BLOOD ORDERABLES Performing Organization Address City/State/ZIP Code Phon e Number MISYS HCG quantitative (07/09/2008 8:18 PM CDT) P athologist Signature HCG Quantitative <2 IU/L M[facility] Serum Comment: Non- ?0 - 5 , weeks from LMP: ??1 - 10 weeks ? 64 - 151,000 IU/L 11 - 15 weeks 11,800 - 152,000 IU/L 16 - 22 weeks ??9,380 - 61,400 IU/L 23 - 40 weeks ??1,740 - 98,600 IU/L Specimen Anatomical Collection Method Collection Time Receive d Time (Source) Location / / Volume Laterality 07/09/2008 8:18 PM 9 8:03 CDT PM CDT Pierre Mon MD LAB - BLOOD ORDERABLES Performing Organization Address [facility] Phon e Number MISYS ABO/Rh type and screen (07/09/2008 8:18 PM CDT) Analysis Performed At [facility] logist Time Signature ABO B MISYS RH(D) Pos MISYS Antibody Neg MIS[facility] Screen Specimen 2008 [facility] Expires Specimen Anatomical Collection Method Collection Time Receive d Time (Source) Location / / Volume Laterality 07/09/2008 8:18 PM 9 8:03 CDT PM CDT Pierre Mon MD LAB - BLOOD BANK TEST ORDER Performing Organization Address [facility] Phon e Number MISYS (ABNORMAL) Routine UA with microscopic (07/09/2008 8:10 PM CDT) Component Value Ref Test Analysis Performed At [facility] gist Range Method Time Signature Source Unspecified MISYS Urine Color Urine Straw MIS[facility] Appearance Urine Clear MISYS Glucose Urine Negative NEG MISYS mg/dL Bilirubin Urine Negative NEG MISYS Ketones Urine Negative NEG MISYS mg/dL Specific [place] 1.009 1.003 - MISYS Urine 1.035 Blood Urine Moderate (A) NEG MISYS pH Urine 5.5 5.0 - MISYS 7.0 pH Protein Albumin Negative NEG MISYS Urine mg/dL Urobilinogen Normal 0.0 - MISYS mg/dL 2.0 mg/dL Nitrite Urine Negative NEG MISYS Leukocyte Negative NEG MISYS Esterase Urine WBC Urine <1 0 - 2 MISYS /HPF RBC Urine 8 (H) 0 - 2 MISYS /HPF Squamous 1 0 - 1 MIS[facility] Epithelial /HPF /HPF Urine Bacteria Urine Few (A) NEG /HPF M[facility] Mucous Urine Present (A) NEG /LPF MISYS Specimen Anatomical Collection Method Collection Time Receive d Time (Source) Location / / Volume Laterality 07/09/2008 8:10 PM 9 9:59 CDT PM CDT Pierre Mon MD LAB - URINE ORDERABLES Performing Organization Address [facility]/ZIP Code Phon e Number MISYS documented in this encounter Visit Diagnoses Not on filedocumented in this encounter Care Teams Tourist Cabin Keeper Relationship Specialty Start Date End Date Devin Britt DO PCP - General 04/18/05 09/04/11 [address] [place] [address] Damian Dowell MD PCP - Surgery 05/08/04 03/14/14 [facility] [address] [address] Collin Singh MD PCP - Orthopaedics 01/23/0602/19/18 documented as of this encounter
--- OUTSIDE RECORDS SUMMARY | 2022-02-06 08:56 | XMS_ITS | Encounter Summary ---
:1970 Author Organization [place] Address [address] [place] [address] Care Team Providers Name Role Phone Devin Britt DO Primary Care Provider Damian Dowell MD Unavailable Reason for Visit Reason Onset Date Comments Refill Request 12/27/2005 [facility] Encounter Details Date Type Department Care Team Description 12/27/2005 Refill [facility] Willi Cardoso PA-C Refill Request System in [facility] XXX XXX ([facility]) Orthopedics [address] [place] [address] [place] [address] [phone] Social History Tobacco Use Types Packs/Day Years Used Date Smoking Tobacco: Every Day Cigarettes 1 10 Alcohol Use Standard Drinks/Week Comments Yes 0 (1 standard drink = 0.6 oz pure alcoho l) Social Sex Assigned at Date Recorded Not on file documented as of this encounter Miscellaneous Notes Telephone Encounter - Maral Reid - 12/30/2005 3:15 PM CDT Accepting this Rx will FAX it directly to the pharmacy. documented in this encounter Plan of Treatment Not on filedocumented as of this encounter Visit Diagnoses Not on filedocumented in this encounter Care Teams Contact Lens Inspector Relationship Specialty Start Date End Date Devin Britt DO PCP - General 04/18/05 09/04/11 [address] [place] [address] Damian Dowell MD PCP - Surgery 05/08/04 03/14/14 [facility] [address] [address] documented as of this encounter
--- OUTSIDE RECORDS SUMMARY | 2022-02-06 08:56 | XMS_ITS | Encounter Summary ---
:1970 Author Organization [facility] Address [address] [place] [address] Care Team Providers Name Role Phone Devin Britt DO Primary Care Provider Damian Dowell MD Unavailable Collin Singh MD Unavailable Unavailable Encounter Details Date Type Department Care Team Description 07/09/2008 Results Only [facility] Pierre Mon MD Hospital Results [address] [place] [address] Social History Tobacco Use Types [...] Priority Date/Time Associated Diagnosis Comme nts CT SCAN Routine 07/09/2008 11:15 PM Results for this ABDOMEN/PELVIS CDT procedure are in the results section. [facility] OB 1ST Routine 07/09/2008 8:57 PM Results f or this TRIMESTER CDT procedure are i n MAT/, SINGLE the result s GESTATION section. documented in this encounter Results CT SCAN ABDOMEN/PELVIS (07/09/2008 11:15 PM CDT) Anatomical Region Laterality Modality Other Specimen (Source) Anatomical Collection Method Collection Time Re ceived Time Location / / Volume Laterality 07/09/2008 11:15 PM CDT Impressions 07/10/2008 8:[address] ABD/PEL W/ CONTRAST* Jul 09, 2008 11: 15:00 PM HISTORY: Pain. TECHNIQUE: CT of the abdomen and pelvis is performed with IV contrast. 100 ml Optiray-350 ??is given intravenou sly for this study. Routine assessed structures include the liver, spleen, pancreas, adrenal glands, and kidneys. Other asses sed structures include the retroperitoneum, abdominal aorta, visual ized gastrointestinal tract, and abdominal wall. Intrapelvic anatomy is also assessed. COMPARISON: 05/02/04. ABDOMEN FINDINGS: The appendix is not vi sualized. Nothing suspicious in this area is seen. PELVIS FINDINGS: No significant abnormal ity is demonstrated. IMPRESSION: ??No acute finding within th e abdomen or pelvis is seen to account for the patient's pain. Pierre Mon MD SPECIAL IMAGING STUDIES US, PREG UTER, REAL TIME W/IMAGE DOCUMENT, & MATERNAL, 1ST TRIMEST, TRANSABDOM; SINGL/1ST GEST (07/09/2008 8:57 PM CDT) Anatomical Region Laterality Modality Other Specimen (Source) Anatomical Collection Method Collection Time Re ceived Time Location / / Volume Laterality 07/09/2008 8:57 PM CDT Impressions 07/09/2008 9:03 PM CDT US OB ??1 TRIMESTER W/TRANSVAG HISTORY: ??Abdominal pain, ??PAIN R ECTO PIC FINDINGS: Comparison is made with the pr evious study of 06/27/2008. The examination is done transabdominally and endovaginally, the latter to better visualize details of the endom etrium and both ovaries. The uterus remains empty. The endometria l stripe measures 9 mm and appears normal. There is no gestational sac. Both ovaries are within normal limits. There is no cyst nor mass . There is no free cul-de-sac fluid. Both ovaries demonstrate normal b lood flow on color Doppler imaging. CONCLUSION: 1. Normal pelvic ultrasound. 2. No significant change since 06/27/2008 . 3. Empty uterus. 4. An ectopic not excluded by this examination. Pierre Mon MD SPECIAL IMAGING STUDIES documented in this encounter Visit Diagnoses Not on filedocumented in this encounter Care Teams Cardiology Clinical Consultant Relationship Specialty Start Date End Date Devin Britt DO PCP - General 04/18/05 09/04/11 [address] [place] [address] Damian Dowell MD PCP - Surgery 05/08/04 03/14/14 [facility] [address] [address] Collin Singh MD PCP - Orthopaedics 01/23/0602/19/18 documented as of this encounter
--- OUTSIDE RECORDS SUMMARY | 2022-02-06 08:56 | XMS_ITS | Encounter Summary ---
:1970 Author Organization [facility] Address [address] [place] [address] Care Team Providers Name Role Phone Devin Britt DO Primary Care Provider Damian Dowell MD Unavailable Collin Singh MD Unavailable Unavailable Encounter Details Date Type Department Care Team Description 07/28/2009 Emergency room [facility] Krysta Weathers, Hospital Results MD EMERGENCY PHYSIC JAMIE WARE [address] [place] [address] (Wo rk) Social History Tobacco Use Types Packs/Day Years Used Date Smoking Tobacco: Every Day Cigarettes 1 10 Alcohol Use Standard Drinks/Week Comments Yes 0 (1 standard drink = 0.6 oz pure alcoho l) Social Sex Assigned at Date Recorded Not on file documented as of this encounter Progress Notes Krysta Weathers - 08/02/2009 5:01 PM CDT FINAL CHIEF COMPLAINT: Concern for abscess tooth, tooth pain. HISTORY OF PRESENT ILLNESS: Aileen Christian is a 39-year-old female who presents to the emergency room with the above stated concerns. Per her report, she has been having problems with a split tooth for quite some time. Yesterday, she bit on something hard and now she has increased swelling and pain. It is also very sensitive when she takes a deep breath. She denies any fever or chills. She denies any difficulty opening her mouth. She denies any difficulty swallowing. She denies any swelling of her tongue. She notes that she has otherwise been doing well. She did take 2 Percocet (left over from a knee surgery) around noon today as well as some Aleve, and that did help her symptoms somewhat, but itis much worse and she has no more pain medications. She notes that she was able to secure an appointment on Friday with her oral surgeon. MEDICATIONS: Depo-Provera, Ativan twice daily, Percocet, Aleve p.r.n. ALLERGIES: Vicodin gives her rash. PAST MEDICAL HISTORY: None. The patient is otherwise healthy aside from knee surgery in the past. SOCIAL HISTORY: The patient does smoke 1 pack per day. She is encouraged to quit. She lives at homewith a roommate. 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 REVIEW OF SYSTEMS: As noted in history present illness. The patient denies any headache. She deniesany vision changes. She denies any nausea or vomiting. She has no abdominal pain. She denies any chest pain or difficulty breathing. She denies any significant swelling in her neck. PHYSICAL EXAMINATION: VITAL SIGNS: Blood pressure 141/89, pulse is 119, respiratory rate is 20, temperature 97.8 temporally, oxygen saturation 100% on room air. GENERAL: A young, nontoxic-appearing female sitting upright on a stretcher doing a crossword puzzle. EYES: Pupils are equal, round, react to light. Conjunctivae ar e normal. EARS, NOSE THROAT: Moist mucous membranes. Tooth #29 in the mandible has the appearance of a dentalcarie with partial tooth fracture. There is no obvious root exposed. The tooth is not mobile. It is tender to percussion. There is no gum abnormalities evident. There is no obvious fluctuant mass or purulent drainage. The tongue moves within normal limits. The rest of the oropharynx is unremarkable. NECK: Nontender to palpation. No palpable masses. Active range of motion is intact. CARDIOVASCULAR: Normal S1, S2. Regular rate and rhythm. No murmurs. RESPIRATORY: Clear to auscultation bilaterally. No wheezes, rales or rhonchi. MUSCULOSKELETAL: Ambulatory without difficulty. SKIN: Warm and dry. No rashes, lesions, or ecchymoses. NEUROLOGIC: Alert and oriented x3. No focal neurologic findings. LABORATORY AND DIAGNOSTICS: None. EMERGENCY DEPARTMENT COURSE: Aileen Christian is a 39-year-old female who presents to the emergency room with mandibular dental pain. She has a history of splitting that tooth in the past and seems to have reinjured it yesterday. She does not have any clinical signs of infection, but with a fractured tooth is somewhat at risk for a pulpitis or early abscess formation. When she presented to the emergency room, she was tachycardic but not febrile. She is in obvious discomfort. She was offered a dental block and accepted this. The dental block was performed as per the procedure note below. It unfortunately did not control all of her discomfort but did improve it. She was given 600 mg of ibuprofen afterward. She was driving herself, so she was not given any sedating medications. As there is no sign ofany abscess to incise or drain, I feel as though she just needs to follow up with her oral surgeon, with whom she does have an appointment on Friday. I do feel comfortable, as she has not had repeat visits here, giving her a small number of Percocet to go home with. She is also told to continue the ibuprofen and avoid hard foods. She is given appropriate return precautions, to return if anything worsens or if she has difficulty swallowing or breathing due to swelling. She is agreeable to this plan. She is discharged in improved condition to home. PROCEDURE NOTE: Dental block. INDICATION: Tooth #29 pain. DESCRIPTION OF PROCEDURE: The patient was topically numbed prior to the procedure. The alveolar nerve region was infiltrated with approximately 1.5 mL of 0.5% bupivacaine. The patient had some discomfort with the procedure, but overall tolerated it well. She had mild improvement of her symptoms afterthe procedure. There were no complications. PLAN OF INTERIM CARE AND FOLLOWUP: The patient is to follow up with her surgeon on Friday. She is told to take ibuprofen 600 mg every 6 hours for pain. She will take Percocet as directed for severe pain only. She is told to eat soft food and drink plenty of fluids. She is told to take penicillin as prescribed. She is told to return to the emergency room should she experience severe amount of swelling or pain that is uncontrolled. DIAGNOSES: Left mandibular premolar dental elizabeth and pain. Electronically signed on 08/02/2009 17:00 by KRYSTA WEATHERS MD MT: [id number] Name: AILEEN CHRISTIAN MRN: [id number] Account: [id number] : 1970 Visit Date: 07/28/2009 Document: [id number] documented in this encounter Plan of Treatment Not on filedocumented as of this encounter Visit Diagnoses Not on filedocumented in this encounter Care Teams Check Out Cashier Relationship Specialty Start Date End Date Devin Britt DO PCP - General 04/18/05 09/04/11 [address] [place] [address] Damian Dowell MD PCP - Surgery 05/08/04 03/14/14 [facility] [address] [place] [address] Collin Singh MD PCP - Orthopaedics 01/23/0602/19/18 documented as of this encounter
--- OUTSIDE RECORDS SUMMARY | 2022-02-06 08:56 | XMS_ITS | Encounter Summary ---
:1970 Author Organization [facility] Address [address] [place] [address] Care Team Providers Name Role Phone Devin Britt DO Primary Care Provider Damian Dowell MD Unavailable Reason for Visit Reason Onset Date Comments Refill Request 12/12/2005 [facility] Encounter Details Date Type Department Care Team Description 12/12/2005 Refill [facility] Willi Cardoso PA-C Refill Request System in [place] XXX XXX ([facility] ) Orthopedics [address] [place] [address] [place] [address] [phone] Social History Tobacco Use Types Packs/Day Years Used Date Smoking Tobacco: Every Day Cigarettes 1 10 Alcohol Use Standard Drinks/Week Comments Yes 0 (1 standard drink = 0.6 oz pure alcoho l) Social Sex Assigned at Date Recorded Not on file documented as of this encounter Miscellaneous Notes Telephone Encounter - Charisse Casanova - 12/13/2005 1:17 PM CDT LEFT MESSAGE ON ANSWERING MACHINE FOR PATIENT. WAS ENCOURAGED TO RESCHEDULE APPT WITH DR NUÑEZ Telephone Encounter - Willi Cardoso PA - 12/12/2005 5:52 PM CDT Charisse-Please let pt. Know that she should still reschedule her canceled appointment with Dr. Nuñez. Thanks. Telephone Encounter - Charisse Casanova - 12/12/2005 11:24 AM CDT Accepting this Rx will FAX it directly to the pharmacy. documented in this encounter Plan of Treatment Not on filedocumented as of this encounter Visit Diagnoses Not on filedocumented in this encounter Care Teams Wood Flooring Specialist Relationship Specialty Start Date End Date Devin Britt DO PCP - General 04/18/05 09/04/11 [address] [place] [address] Damian Dowell MD PCP - Surgery 05/08/04 03/14/14 [facility] [address] [place] [address] documented as of this encounter
--- OUTSIDE RECORDS SUMMARY | 2022-02-06 08:56 | XMS_ITS | Encounter Summary ---
:1970 Author Organization [place] Address [address] [place] [address] Care Team Providers Name Role Phone Devin Britt DO Primary Care Provider Damian Dowell MD Unavailable Collin Singh MD Unavailable Unavailable Frw, None Primary Care Provider Unavailable Allison Smyth Primary Care Provider Lyndsey Guzman MD Primary Care Provider Carine Smallwood MD Unavailable Vee Levy-C Unavailable Carine Smallwood MD Unavailable Vee Levy-C Unavailable [phone] Carine Smallwood MD Unavailable Vee Levy-C Unavailable [phone] Carine Smallwood MD Unavailable Vee Levy-C Unavailable [phone] Carine Smallwood MD Unavailable Vee Levy-C Unavailable [phone] Carine Smallwood MD Unavailable Vee Levy PA-C Unavailable Carine Smallwood MD Unavailable Vee Levy PA-C Unavailable [phone] Reason for Visit Reason Onset Date Comments Refill Request 05/30/2006 [facility] Encounter Details Date Type Department Care Team Description 05/30/2006 Refill [facility] Collin Singh MD Ref ill Request System in [place] (Francisco /zaida) Orthopedics [address] [place] [phone] Social History Tobacco Use Types Packs/Day Years Used Date Smoking Tobacco: Every Day Cigarettes 1 10 Alcohol Use Standard Drinks/Week Comments Yes 0 (1 standard drink = 0.6 oz pure alcoho l) Social Sex Assigned at Date Recorded Not on file documented as of this encounter Miscellaneous Notes Telephone Encounter - Charisse Casanova - 05/30/2006 10:15 AM CST Accepting this Rx will FAX it directly to the pharmacy. Last filled 04/17/06 Message left for pt as she has not been seen since [place] and hasn't been able to make other apptsand currently has no appt made. UCTION ROUSTABOUT documented in this encounter Plan of Treatment Not on filedocumented as of this encounter Visit Diagnoses Not on filedocumented in this encounter Care Teams Tattoo Artist Relationship Specialty Start Date End Date Devin Britt DO PCP - General 04/18/05 09/04/11 [address] [place] [address] Damian Dowell MD PCP - Surgery 05/08/04 03/14/14 [facility] [address] [place] [address] Collin Singh MD PCP - Orthopaedics 01/23/0602/19/18 Frw, None PCP - General Family Practice 09/05/11 09/18/13 Allison Smyth PCP - General Family Practice 09/19/13 08/27/20 Lyndsey Guzman MD PCP - General Family Medicine 08/28/20 [facility] [address], [place] [address] Carine Smallwood MD Assigned Surgical Provider 09/17/[address] [place], [place] [address] Vee Levy, Assigned Surgical Provider 11/04/20 PA-C [address] [place] [address] [id number] Carine Smallwood MD Assigned Surgical Provider 11/05/[address] [place] [address] 734187 Vee Levy, Assigned Surgical Provider 12/30/20 PA-C [address] [place], [place] [address] Carine Smallwood MD Assigned Surgical Provider 12/31/2002/[address] [place], [place] [address] eVe Levy, Assigned Surgical Provider 03/1103/24/21 PA-C [address] [place], [place] [address] Carine Smallwood MD Assigned Surgical Provider 02/25/2103/[address] [place] [address] Vee Levy, Assigned Surgical Provider 02/1102/24/21 PA-C [address] [place] [address] Carine Smallwood MD Assigned Surgical Provider 03/25/21 [address] [place] [address] Vee Levy, Assigned Surgical Provider 2 04/21/21 PA-C [address] [place] [address] Carine Smallwood MD Assigned Surgical Provider 05/27/21 [address] [place] [address] Vee Levy, Assigned Surgical Provider 2 05/26/21 PA-C [address] [place] [address] Carine Smallwood MD Assigned Surgical Provider 04/22/21 [address] [place] [address] Vee Levy, Assigned Surgical Provider 2 PA-C [address] [place] [address] documented as of this encounter
--- OUTSIDE RECORDS SUMMARY | 2022-02-06 08:56 | XMS_ITS | Encounter Summary ---
:1970 Author Organization [facility] Address [address] [place] [address] Care Team Providers Name Role Phone Devin Britt DO Primary Care Provider Damian Dowell MD Unavailable Collin Singh MD Unavailable Unavailable Reason for Visit Reason Onset Date Comments Refill Request 04/17/2006 [facility] Encounter Details Date Type Department Care Team Description 04/17/2006 Refill [facility] System in [place] (debra/Francisco/[facility] [phone] Pharm-Jeremy) [address] (Work) [place] [address] Social History Tobacco Use Types Packs/Day Years Used Date Smoking Tobacco: Every Day Cigarettes 1 10 Alcohol Use Standard Drinks/Week Comments Yes 0 (1 standard drink = 0.6 oz pure alcoho l) Social Sex Assigned at Date Recorded Not on file documented as of this encounter Miscellaneous Notes Telephone Encounter - Yuliya Wiley - 04/17/2006 10:40 AM CST Accepting this Rx will FAX it directly to the pharmacy. Patient states knee still bothers her. CTOR OF AUTOMATION documented in this encounter Plan of Treatment Not on filedocumented as of this encounter Visit Diagnoses Not on filedocumented in this encounter Care Teams Legal Researcher Relationship Specialty Start Date End Date Devin Britt DO PCP - General 04/18/05 09/04/11 [address] [place] [address] Damian Dowell MD PCP - Surgery 05/08/04 03/14/14 [facility] [address] [place] [address] Collin Singh MD PCP - Orthopaedics 01/23/0602/19/18 documented as of this encounter
--- OUTSIDE RECORDS SUMMARY | 2022-02-06 08:56 | XMS_ITS | Encounter Summary ---
:1970 Author Organization [facility] Address [address] [place] [address] Care Team Providers Name Role Phone Devin Britt DO Primary Care Provider Damian Dowell MD Unavailable Collin Singh MD Unavailable Unavailable Reason for Visit Reason Onset Date Comments Musculoskeletal Problem 06/20/2006 Twisted ankle Encounter Details Date Type Department Care Team Description 06/20/2006 Telephone [facility] Devin Britt Muscul oskeletal Problem [facility] Family D, DO (Twisted ankle) Practice [address] [address] [phone] Social History Tobacco Use Types Packs/Day Years Used Date Smoking Tobacco: Every Day Cigarettes 1 10 Alcohol Use Standard Drinks/Week Comments Yes 0 (1 standard drink = 0.6 oz pure alcoho l) Social Sex Assigned at Date Recorded Not on file documented as of this encounter Miscellaneous Notes Telephone Encounter - Jonny Erwin MD - 06/30/2006 9:50 PM CDT Not my pt. Needs to stay with Lorenza. Telephone Encounter - Nino Mejia - 06/20/2006 12:38 PM CST Aileen called the main clinic to be seen for an ankle injury. She was asked to call downtown to [place] today. is not in the office on Friday. She did not care to see her PCP. She has no insurance and really just wanted to know what she could do for a twisted ankle. She stated that this morning she fell down some steps and twisted her ankle. It is swollen over the outer aspect. Shestates she is sure it is not broken, because she can walk on it. She just wondered what she could do. I did offer a visit here today or Urgent Care this evening. She would rather try some things at home first to see if it gets better. I suggested ice, resting her ankle, elevation, Ibuprofen, lita wrap for support and to follow up with a visit if there is no improvement. She will try this at home first. EL FARMER documented in this encounter Plan of Treatment Not on filedocumented as of this encounter Visit Diagnoses Not on filedocumented in this encounter Care Teams Property Supervisor Relationship Specialty Start Date End Date Devin Britt DO PCP - General 04/18/05 09/04/11 [address] [place] [address] Damian Dowell MD PCP - Surgery 05/08/04 03/14/14 [facility] [address] [place] [address] Collin Singh MD PCP - Orthopaedics 01/23/0602/19/18 documented as of this encounter
--- OUTSIDE RECORDS SUMMARY | 2022-02-06 08:56 | XMS_ITS | Encounter Summary ---
:1970 Author Organization [facility] Address [address] [place] [address] Care Team Providers Name Role Phone Devin Britt DO Primary Care Provider Damian Dowell MD Unavailable Collin Singh MD Unavailable Unavailable Encounter Details Date Type Department Care Team Description 06/27/2008 Emergency room [facility] Ignacio Arevalo, Hospital Results MD EMERGENCY PHYSIC [facility] [address] [place], [place] [address] (Wo rk) Social History Tobacco Use Types Packs/Day Years Used Date Smoking Tobacco: Every Day Cigarettes 1 10 Alcohol Use Standard Drinks/Week Comments Yes 0 (1 standard drink = 0.6 oz pure alcoho l) Social Sex Assigned at Date Recorded Not on file documented as of this encounter Progress Notes Ignacio Arevalo - 07/30/2008 4:25 PM CDT FINAL CHIEF COMPLAINT: Abdominal pain and I have a positive test. HISTORY OF PRESENT ILLNESS: The patient is a 37-year-old female who presents to the emergency department complaining of low abdominal pain. She states that has been present over the last 3 days. The pain waxes and wanes. She describes it as a crampy pain. She denies any back pain. She states she has been passing some brownish discharge. She thinks she may be 5-6 weeks' by dates. She denies any lightheadedness, chest pain, fever, shortness of breath. She denies any urinary complaints, diarrhea, bloody black stools. She denies any other complaints. PAST MEDICAL HISTORY: The patient denies any medical problems. MEDICATIONS: Is on no medications. ALLERGIES: Has no known drug allergies. SOCIAL HISTORY: She smokes 4-5 cigarettes a day, occasionally drinks alcohol. FAMILY HISTORY: Noncontributory. REVIEW OF SYSTEMS: As noted in the HPI. All other systems are negative. PHYSICAL EXAMINATION: GENERAL: The patient is alert and appropriate. VITAL SIGNS: Temperature 97.6, pulse 109, respiratory rate 16, blood pressure 130/88 and oxygen saturation 100% on room air. HEENT: Head exam normal. Throat, oropharynx is clear. Mucous membranes are moist. NECK: Normal. LUNGS: Clear to auscultation bilaterally. CARDIAC: Regular rate and rhythm. No murmurs, gallops or rubs. ABDOMEN: Normoactive bowel sounds, nondistended. She does have some low abdominal tenderness to palpation, right greater than left. No guarding or rebound. Upper abdomen is nontender. BACK: No CVA tenderness. EXTREMITIES: Normal. SKIN: Warm and dry, no rash. PELVIC: The os is closed. There is a small amount of brown discharge in the vault. No cervical motion tenderness. She does have bilateral adnexal tenderness, more so on the right, no adnexal masses are appreciated. LABORATORY AND DIAGNOSTICS: Urinalysis was obtained and was positive for protein, small blood, 10 red cells. Wet prep was negative. Chlamydia and gonorrhea PCR were pending. CBC was within normal limits with a normal differential. BMP was also within normal limits. Serum hCG quantitative was 233. Thepatient was Rh positive. First trimester OB ultrasound was obtained. There was a nonspecific hypoechoic area in the right adnexa uncertain clinical significance, no intrauterine identified, ectopic cannot be excluded. There is no free fluid. EMERGENCY DEPARTMENT COURSE: An IV was started. The patient was given 4 mg of morphine IV and 4 mg of Zofran IV. She had good pain relief. She had a normal blood pressure. I did offer admission as I could not guarantee that this was not an early ectopic . She did not want to be admitted to the hospital. I did discuss the case with Dr. Mitchell on-call for [facility] and he did agree to have the patient follow up for reevaluation and another serum quant. I informed the patient very carefully of what to return for and again offered admission because of the pain and the possibility of ectopic though she had no risk factors. She again expressed that she wanted to go home. I gave her a prescription for Percocet to take as needed, fluids. Follow up with [facility] DISTANCE LEARNING COORDINATOR. Callfor an appointment tomorrow, return for worsening pain, increased bleeding, passing out, worsening symptoms. DIAGNOSES: Abdominal pain and positive test. Electronically signed on 07/30/2008 16:24 by IGNACIO AREVALO MD MT: [id number] Name: AILEEN CHRISTIAN Account: [id number] : 1970 Visit Date: 06/27/2008 Document: [id number] documented in this encounter Plan of Treatment Not on filedocumented as of this encounter Visit Diagnoses Not on filedocumented in this encounter Care Teams Manager Of Training Relationship Specialty Start Date End Date Devin Britt DO PCP - General 04/18/05 09/04/11 [address] [place] [address] Damian Dowell MD PCP - Surgery 05/08/04 03/14/14 [facility] [address] [place] [address] Collin Singh MD PCP - Orthopaedics 01/23/0602/19/18 documented as of this encounter
--- OUTSIDE RECORDS SUMMARY | 2022-02-06 08:56 | XMS_ITS | Encounter Summary ---
:1970 Author Organization [place] [facility] Address [address] [place] [address] Care Team Providers Name Role Phone Devin Britt DO Primary Care Provider Damian Dowell MD Unavailable Collin Singh MD Unavailable Unavailable Encounter Details Date Type Department Care Team Description 06/27/2008 Results Only [facility] Preston Go MD Hospital Results EMERGENCY PHYSI [facility] [address] [place], [place] [address] (Wo rk) Social History [...] Priority Date/Time Associated Diagnosis Comme nts HC US OB 1ST Routine 06/27/2008 4:29 AM Results f or this TRIMESTER CDT procedure are i n MAT/, SINGLE the result s GESTATION section. documented in this encounter Results US, PREG UTER, REAL TIME W/IMAGE DOCUMENT, & MATERNAL, 1ST TRIMEST, TRANSABDOM; SINGL/1ST GEST (06/27/2008 4:29 AM CDT) Anatomical Region Laterality Modality Other Specimen (Source) Anatomical Collection Method Collection Time Re ceived Time Location / / Volume Laterality 06/27/2008 4:29 AM CDT Impressions 06/27/2008 10:39 AM CDT ULTRASOUND OBSTETRIC FIRST TRIMESTER WI TH TRANSVAGINAL ??June 27, 2008 4:29:00 AM HISTORY: Pain. . Preliminary report given by Dr. Hall. TECHNIQUE: Transabdominal and transvagin al imaging was performed. Transvaginal exam performed to better ev aluate: Uterus, ovaries and adnexa. FINDINGS: No IUP identified. There is an area of soft tissue within the right adnexa measuring 1.3 x 1.1 x 1 cm. It is unclear whether this represents bowel or possibly an ect opic . Ultrasound and hCG followup recommended. Both ovaries a ppear unremarkable. Mild free fluid. IMPRESSION: Ectopic cannot be excluded, particularly on the right. However the findings could also r epresent early intrauterine or spontaneous . Follo wup recommended, as above. Preston Go MD [facility] documented in this encounter Visit Diagnoses Not on filedocumented in this encounter Care Teams Sharepoint Trainer Relationship Specialty Start Date End Date Devin Britt DO PCP - General 04/18/05 09/04/11 [address] [place] [address] Damian Dowell MD PCP - Surgery 05/08/04 03/14/14 [facility] [address] [place] [address] Collin Singh MD PCP - Orthopaedics 01/23/0602/19/18 documented as of this encounter
--- OUTSIDE RECORDS SUMMARY | 2022-02-06 08:56 | XMS_ITS | Encounter Summary ---
:1970 Author Organization [facility] Address [address] [place] [address] Care Team Providers Name Role Phone Devin Britt DO Primary Care Provider Damian Dowell MD Unavailable Collin Singh MD Unavailable Unavailable Frw, None Primary Care Provider Unavailable Allison Smyth Primary Care Provider Lyndsey Guzman MD Primary Care Provider Carine Smallwood MD Unavailable Vee Levy-C Unavailable [phone] Carine Smallwood MD Unavailable Vee Levy-C Unavailable [phone] Carine Smallwood MD Unavailable Vee Levy-C Unavailable [phone] Carine Smallwood MD Unavailable Vee Levy-C Unavailable [phone] Carine Smallwood MD Unavailable Vee Levy-C Unavailable [phone] Carine Smallwood MD Unavailable Vee Levy PA-C Unavailable [phone] Carine Smallwood MD Unavailable Vee Levy PA-C Unavailable [phone] Reason for Visit Reason Onset Date Comments Refill Request 03/07/2006 [facility] john/ niki damian Encounter Details Date Type Department Care Team Description 03/07/2006 Refill [facility] Collin Singh MD Ref ill Request ([facility] in [place] john/ va jenkins) Orthopedics [address] [place] [address] Social History Tobacco Use Types Packs/Day Years Used Date Smoking Tobacco: Every Day Cigarettes 1 10 Alcohol Use Standard Drinks/Week Comments Yes 0 (1 standard drink = 0.6 oz pure alcoho l) Social Sex Assigned at Date Recorded Not on file documented as of this encounter Miscellaneous Notes Telephone Encounter - Maral Price - 03/07/2006 2:56 PM CST Accepting this Rx will FAX it directly to the pharmacy. CTOR ENGINEERING documented in this encounter Plan of Treatment Not on filedocumented as of this encounter Visit Diagnoses Not on filedocumented in this encounter Care Teams Hot Metal Mixer Operator Helper Relationship Specialty Start Date End Date Devin Britt DO PCP - General 04/18/05 09/04/11 [address] [place] [address] Damian Dowell MD PCP - Surgery 05/08/04 03/14/14 [facility] [address] [place] [address] Collin Singh MD PCP - Orthopaedics 01/23/0602/19/18 Frw, None PCP - General Family Practice 09/05/11 09/18/13 Allison Smyth PCP - General Family Practice 09/19/13 08/27/20 Lyndsey Guzman MD PCP - General Family Medicine 08/28/20 [facility] [address] [place] [address] Carine Smallwood MD Assigned Surgical Provider 09/17/[address] [place], [place] [address] Vee Levy, Assigned Surgical Provider 11/04/20 PA-C [address] [place], [place] [address] Carine Smallwood MD Assigned Surgical Provider 11/05/[address] [place] [address] Vee Levy, Assigned Surgical Provider 12/30/20 PA-C [address] [place] [address] Carine Smallwood MD Assigned Surgical Provider 12/31/2002/[address] [place] [address] Vee Levy, Assigned Surgical Provider 03/1103/24/21 PA-C [address] [place] [address] Carine Smallwood MD Assigned Surgical Provider 02/25/2103/[address] [place] [address] Vee Levy, Assigned Surgical Provider 02/1102/24/21 PA-C [address] [place] [address] Carine Smallwood MD Assigned Surgical Provider 03/25/21 [address] [place] [address] Vee Levy, Assigned Surgical Provider 2 04/21/21 PA-C [address] [place] [address] Carine Smallwood MD Assigned Surgical Provider 05/27/21 [address] [place] [address] Vee Levy, Assigned Surgical Provider 2 05/26/21 PA-C [address] [place] [address] Carine Smallwood MD Assigned Surgical Provider 04/22/21 [address] [place] [address] Vee Levy, Assigned Surgical Provider 2 PA-C [address] [place] [address] documented as of this encounter
--- OUTSIDE RECORDS SUMMARY | 2022-02-06 08:56 | XMS_ITS | Encounter Summary ---
:1970 Author Organization [place] Address [address] [place] [address] Care Team Providers Name Role Phone Devin Britt DO Primary Care Provider Damian Dowell MD Unavailable Collin Singh MD Unavailable Unavailable Reason for Visit Reason Onset Date Comments Refill Request 01/27/2006 Encounter Details Date Type Department Care Team Description 01/27/2006 Refill [facility] [place] Karen Jackson Refill Request Orthopedics [address] [place] [phone] Social History Tobacco Use Types Packs/Day Years Used Date Smoking Tobacco: Every Day Cigarettes 1 10 Alcohol Use Standard Drinks/Week Comments Yes 0 (1 standard drink = 0.6 oz pure alcoho l) Social Sex Assigned at Date Recorded Not on file documented as of this encounter Miscellaneous Notes Telephone Encounter - Karen Don - 01/27/2006 4:10 PM CDT Accepting this Rx will FAX it directly to the pharmacy. documented in this encounter Plan of Treatment Not on filedocumented as of this encounter Visit Diagnoses Not on filedocumented in this encounter Care Teams Embroidery Worker Relationship Specialty Start Date End Date Devin Britt DO PCP - General 04/18/05 09/04/11 [address] [place] [address] Damian Dowell MD PCP - Surgery 05/08/04 03/14/14 [facility] [address] [address] Collin Singh MD PCP - Orthopaedics 01/23/0602/19/18 documented as of this encounter
--- OUTSIDE RECORDS SUMMARY | 2022-02-06 08:56 | XMS_ITS | Encounter Summary ---
:1970 Author Organization [facility] Address [address] [place] [address] Care Team Providers Name Role Phone Devin Britt DO Primary Care Provider Damian Dowell MD Unavailable Collin Singh MD Unavailable Unavailable Reason for Visit Reason Comments Dental Problem lower rt side, x 3-4 days, c racked tooth Encounter Details Date Type Department Care Team Description 06/12/[address] [facility] Sa jennifer Spence, in [facility] PA-C [address] [place] [address] XXX [phone] [place] [address] (Wo rk) Social History Tobacco Use Types Packs/Day Years Used Date Smoking Tobacco: Every Day Cigarettes 1 10 Alcohol Use Standard Drinks/Week Comments Yes 0 (1 standard drink = 0.6 oz pure alcoho l) Social Sex Assigned at Date Recorded Not on file documented as of this encounter Last Filed Vital Signs Vital Sign Reading Time Taken Comments Blood Pressure 166/95 06/12/2009 7:39 PM LEAD HOUSEKEEPER Pulse 125 06/12/2009 7:39 PM LEAD HOUSEKEEPER Temperature 36.9 ??C (98.4 ??F) 06/12/2009 7:39 PM LEAD HOUSEKEEPER Respiratory Rate - - Oxygen Saturation 98% 06/12/2009 7:39 PM LEAD HOUSEKEEPER Inhaled Oxygen Concentration - - Weight - - Height - - Body Mass Index - - documented in this encounter Progress Notes Eufemia Rosa PA - 06/13/2009 9:05 AM LEAD HOUSEKEEPER SUBJECTIVE: 38-year-old female here complaining of tooth pain at her right lower jaw since a fall four days ago. She was evaluated shortly after the fall and given a small supply of Vicodin which did not help. She then made an appointment with her dentist. She went to the dentist appointment today and they would not take her because of the type of insurance she had. She is pretty much at her wit's end. She is overwhelmed with pain and anxiety about this and worried that she is not going to be able to get her tooth fixed and suffering with a significant amount of pain. She has been using ibuprofen 800 milligrams 3 times a day, intermittent Tylenol, topical ice. She has used two things of Orajel. She has tried the [id number] tooth repair. She has not had any relief of the discomfort. PAST MEDICAL HISTORY: Significant for fibromyalgia. ALLERGIES: NO DRUG ALLERGIES. OBJECTIVE: VITAL SIGNS: Blood pressure 166/95, pulse 125, temperature 98.4, saturation 98%. GENERAL: Adult female, alert, oriented, in no acute distress. Along her right lower jaw there does appear to be a tooth that has a small crack on it. The gum line appears normal. She is opening and closing her mouth normally. Posterior pharynx without erythema. ASSESSMENT: Tooth pain and fracture. PLAN: Discussed max dose of Tylenol and ibuprofen alternating and I gave her a prescription for #30 Percocet. Encouraged her to use sparingly, keep working to find a dentist and follow up as needed. MAGALY Rueda/antonio HOUSEKEEPER documented in this encounter Plan of Treatment Not on filedocumented as of this encounter Visit Diagnoses Not on filedocumented in this encounter Care Teams Inspector And Tester Relationship Specialty Start Date End Date Devin Britt DO PCP - General 04/18/05 09/04/11 [address] [place] [address] Damian Dowell MD PCP - Surgery 05/08/04 03/14/[address] [address] Collin Singh MD PCP - Orthopaedics 01/23/0602/19/18 documented as of this encounter
--- OUTSIDE RECORDS SUMMARY | 2022-02-06 08:56 | XMS_ITS | Encounter Summary ---
:1970 Author Organization [facility] Address [address] [place] [id number] Care Team Providers Name Role Phone Devin Britt DO Primary Care Provider Damian Dowell MD Unavailable Collin Singh MD Unavailable Unavailable Encounter Details Date Type Department Care Team Description 06/27/2008 Historic Results INTERFACED REPORT Tomy Go MD [facility] [address] [place], [place] [address] (Wo rk) Social History [...] Comments Diagnosis CBC WITH PLATELETS & STAT 06/27/2008 3:55 AM R esults for this DIFFERENTIAL CDT procedure are i n the results section. RH TYPE STAT 06/27/2008 3:55 AM Results f or this CDT procedure are i n the results section. HCG QUANTITATIVE STAT 06/27/2008 3:55 AM Resul ts for this CDT procedure are i n the results section. BASIC METABOLIC PANEL STAT 06/27/2008 3:55 AM Results for this CDT procedure are i n the results section. WET PREPARATION Routine 06/27/2008 3:40 AM Result s for this CDT procedure are i n the results section. NEISSERIA GONORRHOEAE Routine 06/27/2008 3:40 AM Results for this PCR CDT procedure are i n the results section. CHLAMYDIA TRACHOMATIS Routine 06/27/2008 3:40 AM Results for this PCR CDT procedure are i n the results section. ROUTINE UA WITH STAT 06/27/2008 3:30 AM Result s for this MICROSCOPIC CDT procedure are i n the results section. documented in this encounter Results CBC with platelets differential (06/27/2008 3:55 AM CDT) [facility] Method Time Signature MCV 92 78 - 100 MISYS fl MCH 30.7 26.5 - MISYS 33.0 pg MCHC 33.5 31.5 - MISYS 36.5 g/dL RDW 12.5 10.0 - MISYS 15.0 % WBC 8.3 4.0 - MISYS 11.0 10e9/L RBC Count 4.40 3.8 - 5.2 MISYS 10e12/L Hemoglobin 13.5 11.7 - MISYS 15.7 g/dL Hematocrit 40.3 35.0 - MISYS 47.0 % % Neutrophils 57 40 - 75 % MISYS % Lymphocytes 29 20 - 48 % MISYS % Monocytes 7 0 - 12 % MISYS % Eosinophils 6 0 - 6 % MISYS % Basophils 1 0 - 2 % MISYS Platelet Count 297 150 - 450 MIS[facility] 10e9/L Absolute 4.8 1.6 - 8.3 MISYS Neutrophil 10e9/L Absolute 2.4 0.8 - 5.3 MISYS Lymphocytes 10e9/L Absolute 0.6 0.0 - 1.3 MISYS Monocytes 10e9/L Absolute 0.5 0.0 - 0.7 MISYS Eosinophils 10e9/L Absolute 0.1 0.0 - 0.2 MISYS Basophils 10e9/L Diff Method Automated MISYS Method Specimen Anatomical Collection Method Collection Time Receive d Time (Source) Location / / Volume Laterality 06/27/2008 3:55 AM 9 3:25 CDT AM CDT Preston Go MD LAB - BLOOD ORDERABLES Performing Organization Address City/State/ZIP Code Phon e Number MISYS (ABNORMAL) Basic metabolic panel (06/27/2008 3:55 AM CDT) P athologist Signature Sodium 141 133 - 144 M[facility] mmol/L Potassium 3.7 3.4 - 5.3 MIS[facility] mmol/L Chloride 102 94 - 109 M[facility] mmol/L Carbon Dioxide 28 20 - 32 MIS[facility] mmol/L Glucose 111 (H) 60 - 99 MISYS mg/dL Urea Nitrogen 12 5 - 24 MISYS mg/dL Creatinine 0.74 0.52 - MISYS 1.04 mg/dL Comment: New IDMS-traceable calibration beginning 08/13/07 GFR Estimate 88 >60 mL/min/1.7m2 MISYS GFR Estimate If Black >90 >60 mL/min/1.7m2 M ISYS Calcium 9.2 8.5 - 10.4 mg/dL MISYS Anion Gap 11 6 - 17 mmol/L MISYS Specimen Anatomical Collection Method Collection Time Receive d Time (Source) Location / / Volume Laterality 06/27/2008 3:55 AM 9 3:25 CDT AM CDT Preston Go MD LAB - BLOOD ORDERABLES Performing Organization Address City/State/ZIP Code Phon e Number MISYS HCG quantitative (06/27/2008 3:55 AM CDT) P athologist Signature HCG Quantitative 233 IU/L MISYS Serum Comment: Non- ?0 - 5 Weeks Post LMP: 3 - 4 weeks ? 9 - 130 4 - 5 weeks ?75 - 2600 5 - 6 weeks ? 850 - 20,800 6 - 7 weeks ?4000 - 100,200 7 -12 weeks ??11,500 - 289,000 12-16 weeks ??18,300 - 137,000 16-29 weeks ?1400 - 53,000 29-41 weeks ? 940 - 60,000 ? to term Non- ?0 - 5 , weeks from LMP: ??1 - 10 weeks ? 64 - 151,000 IU/L 11 - 15 weeks 11,800 - 152,000 IU/L 16 - 22 weeks ??9,380 - 61,400 IU/L 23 - 40 weeks ??1,740 - 98,600 IU/L Specimen Anatomical Collection Method Collection Time Receive d Time (Source) Location / / Volume Laterality 06/27/2008 3:55 AM 9 3:25 CDT AM CDT Preston Go MD LAB - BLOOD ORDERABLES Performing Organization Address [facility] Phon e Number MISYS Rh type (06/27/2008 3:55 AM CDT) Analysis Performed At Path logist Time Signature ABO B MISYS RH(D) Pos MISYS Specimen 06/30/2008 MISYS Expires Specimen Anatomical Collection Method Collection Time Receive d Time (Source) Location / / Volume Laterality 06/27/2008 3:55 AM 9 3:25 CDT AM CDT Preston Go MD LAB - BLOOD BANK TEST ORDER Performing Organization Address [facility] Phon e Number MISYS Wet prep (06/27/2008 3:40 AM CDT) Patholo gist Method Time Signature Specimen Vagina MISYS Description Micro Report FINAL MISYS Status 06/27/2008 Wet Prep No PMNs MISYS seen Comment: No Trichomonas seen No yeast seen No clue cells seen Specimen Anatomical Collection Method Collection Time Receive d Time (Source) Location / / Volume Laterality 06/27/2008 3:40 AM 9 4:00 CDT AM CDT In Er Md Assigned LAB - MICRO GENERAL ORDERABL ES Performing Organization Address [facility] Phon e Number MISYS Chlamydia trachomatis PCR (06/27/2008 3:40 AM CDT) Component Value Ref Test Analysis Performed At [employer] gist Range Method Time Signature Specimen Cervical MISYS Description Chlamydia Negative for C. MISYS Trachomatis PCR trachomatis rRNA by jewelry bench worker mediated amplification. Comment: A negative result by jewelry bench worker medi ated amplification does not preclude the presence of C. trachomatis infection be cause results are dependent on proper and adequate collection, absence of inh ibitors, and sufficient rRNA to be detected. Specimen Anatomical Collection Method Collection Time Receive d Time (Source) Location / / Volume Laterality 06/27/2008 3:40 AM 9 4:00 CDT AM CDT In Er Assigned LAB - MICRO GENERAL ORDERABL ES Performing Organization Address [facility] Phon e Number MISYS Neisseria gonorrhoeae PCR (06/27/2008 3:40 AM CDT) [facility] Method Time Signature Specimen Cervical MISYS Descrip N Gonorrhea Negative for N. MISYS PCR gonorrhoeae rRNA by jewelry bench worker mediated amplification. Comment: A negative result by jewelry bench worker medi ated amplification does not preclude the presence of N. gonorrhoeae infection be cause results are dependent on proper and adequate collection, absence of inh ibitors, and sufficient rRNA to be detected. Specimen Anatomical Collection Method Collection Time Receive d Time (Source) Location / / Volume Laterality 06/27/2008 3:40 AM 9 4:00 CDT AM CDT In Er Md Assigned LAB - MICRO GENERAL ORDERABL ES Performing Organization Address [facility] Phon e Number MISYS (ABNORMAL) Routine UA with microscopic (06/27/2008 3:30 AM CDT) [facility] Method Time Signature Source Midstream MISYS Urine Color Urine Yellow MISYS Appearance Urine Clear MISYS Glucose Urine Negative NEG mg/dL MISYS Bilirubin Urine Negative NEG MISYS Ketones Urine Negative NEG mg/dL MISYS Specific [place] 1.032 1.003 - MISYS Urine 1.035 Blood Urine Small (A) NEG MISYS pH Urine 5.5 5.0 - 7.0 MISYS pH Protein Albumin 10 (A) NEG mg/dL MISYS Urine Urobilinogen 2.0 0.0 - 2.0 MISYS mg/dL mg/dL Nitrite Urine Negative NEG MISYS Leukocyte Negative NEG MISYS Esterase Urine WBC Urine 2 0 - 2 MISYS /HPF RBC Urine 10 (H) 0 - 2 MISYS /HPF Squamous 1 0 - 1 MISYS Epithelial /HPF /HPF Urine Mucous Urine Present (A) NEG /LPF MISYS Specimen Anatomical Collection Method Collection Time Receive d Time (Source) Location / / Volume Laterality 06/27/2008 3:30 AM 9 3:25 CDT AM CDT Preston Go MD LAB - URINE ORDERABLES Performing Organization Address [facility] Phon e Number MISYS documented in this encounter Visit Diagnoses Not on filedocumented in this encounter Care Teams Abrasives Sales Representative Relationship Specialty Start Date End Date Devin Britt, DO PCP - General 04/18/05 09/04/11 [address] [place] [address] Damian Dowell MD PCP - Surgery 05/08/04 03/14/[address] [address] Collin Singh MD PCP - Orthopaedics 01/23/0602/19/18 documented as of this encounter
--- OUTSIDE RECORDS SUMMARY | 2022-02-06 08:56 | XMS_ITS | Encounter Summary ---
:1970 Author Organization [place] Address [address] [place] [address] Care Team Providers Name Role Phone Devin Britt DO Primary Care Provider Damian Dowell MD Unavailable Collin Singh MD Unavailable Unavailable Encounter Details Date Type Department Care Team Description 07/09/2008 Emergency room [facility] Pierre Salgado MD Hospital Results [address] [place] [address] Social History Tobacco Use Types Packs/Day Years Used Date Smoking Tobacco: Every Day Cigarettes 1 10 Alcohol Use Standard Drinks/Week Comments Yes 0 (1 standard drink = 0.6 oz pure alcoho l) Social Sex Assigned at Date Recorded Not on file documented as of this encounter Progress Notes Interface, Auto Mechanic - 07/14/2008 12:27 AM CDT FINAL CHIEF COMPLAINT: Abdominal pain. HISTORY OF PRESENT ILLNESS: Aileen Christian is a 37-year-old female who has been having left lower abdominal pain that has been worse for the past few days. It has been present for what sounds like a couple of weeks. She states she was seen then with what she thought was a miscarriage. She last had a period on 05/07/2008. She says the bleeding stopped on 06/27/2008 but she has continued to have pain.She has also developed an upper respiratory infection the past few days with a runny nose and a cough that has been nonproductive. She has been eating. She has not vomited. She is chronically constipated, alternating with loose stools and says she has irritable bowel syndrome. She has not had any voiding symptoms. The patient has not had any fevers or chills. She is here with her significant other. MEDICATIONS: None. ALLERGIES: None. PAST MEDICAL HISTORY: Breast implants, knee surgery, one child, irritable bowel syndrome, fibromyalgia. She has been through a pain clinic. SOCIAL HISTORY: Smokes a pack of cigarettes a day. She does not drink alcohol. 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 REVIEW OF SYSTEMS: All other systems are negative. PHYSICAL EXAMINATION: GENERAL: Shows alert, pleasant female. VITAL SIGNS: Temperature 99.6, pulse 124, respirations 20, blood pressure 131/77 and pulse ox 100% on room air. HEENT: Normal. NECK: Supple. LYMPHATICS: Normal. CHEST: Shows clear equal breath sounds. CARDIOVASCULAR: Regular S1 and S2 without murmur, normal pulses. ABDOMEN: Bowel sounds are active but soft. She has tenderness in the suprapubic region on both the right and left side. There is no definite guarding or rebound, no mass effect. Pelvic exam shows a normal introitus and vault. Her cervix is closed. Her uterus is not tender and the adnexa are negative.BACK: Negative. EXTREMITIES: Normal. SKIN: Dry. NEUROLOGIC: Within normal limits. LABORATORY DATA: OB ultrasound shows no intrauterine . She has normal ovaries and no pelvic fluid in the cul-de-sac. Abdominal CT scan with contrast is within normal limits. There is no pathology identified. HCG negative. Blood type B positive, white count 6200, hemoglobin 13.8, platelets 263,000 with 71 PMNs and 15 lymphs. Urine specific gravity 1.009, pH 5.5, 1 white cell, 8 red cells andbacteria present. EMERGENCY DEPARTMENT COURSE: The patient had an IV of normal saline established at 100 cc an hour. We medicated her with 4 mg of morphine and 4 mg of Zofran, both IV. Later the morphine was repeated. In the meanwhile, her testing was completed and I reviewed the results with her. Also, I reviewed herrecords in [place]. She was here on 06/27/2008 and had an hCG of 233. She had chlamydia and gonorrhea screen that was negative and her hemoglobin is 13.5. The patient states that she thought she passed the products of conception prior to coming into the department on the and I think she most likely did since her hCG is now 0 and her hemoglobin is the same and her ultrasound does not show any evidence of . In addition, her abdominal CT scan does not provide an explanation for her abdominalpain. It was then that she started telling me about her irritable bowel syndrome and her diarrhea alternating with constipation and the fact that she uses a Colace substitute to keep herself regular but even with that, she still continues to have problems. At this point, it is not clear if her pains are due to irritable bowel syndrome or she has a urinary tract infection causing pelvic pain. I think it would be reasonable to cover her with Cipro. We talked about an evolving abdominal condition such as appendicitis and she still has one and she is aware that she could worsen and require prompt reevaluation. The patient was also asked why she never followed up on her visit in the Emergency Department on 06/27/2008 when she was here with what looked like an ectopic and was advised of that and she stated that she did not have any way to get from her home to the clinic and she was too busy with her job to make an appointment. The patient is doing well at this point, however, and can be discharged. I reviewed the discharge plan with her and it is as follows. DISCHARGE PLAN: The patient is to rest at home. She is to decrease her activities and stick to a bland diet. Cipro 500 mg twice a day for 5 days was prescribed, along with Vicodin 5/500 mg 1-2 every 4hours as needed for pain. She is to be rechecked with a doctor on 07/11/2008 and should call for a time to do so and may return to the emergency department as needed. DIAGNOSES: 1. Spontaneous miscarriage. 2. Abdominal pain. 3. Urinary tract infection. Electronically signed on 07/14/2008 00:27 by PIERRE SALGADO MD MT: [id number] Name: AILEEN CHRISTIAN MRN: [id number] Account: [id number] : 1970 Visit Date: 07/09/2008 Document: [id number] cc: Anne Alexander [facility] documented in this encounter Plan of Treatment Not on filedocumented as of this encounter Visit Diagnoses Not on filedocumented in this encounter Care Teams Supervisor Multifocal Lens Relationship Specialty Start Date End Date Devin Britt DO PCP - General 04/18/05 09/04/11 [address] [place] [address] Damian Dowell MD PCP - Surgery 05/08/04 03/14/14 [facility] [address] [address] Collin Singh MD PCP - Orthopaedics 01/23/0602/19/18 documented as of this encounter
--- OUTSIDE RECORDS SUMMARY | 2022-02-06 08:57 | XMS_ITS | Encounter Summary ---
:1970 Author Organization [place] Address [address] [place] [address] Care Team Providers Name Role Phone Devin Britt DO Primary Care Provider Damian Dowell MD Unavailable Collin Singh MD Unavailable Unavailable Frw, None Primary Care Provider Unavailable Allison Smyth Primary Care Provider Lyndsey Guzman MD Primary Care Provider Carine Smallwood MD Unavailable Vee Levy-C Unavailable [phone] Carine Smallwood MD Unavailable Vee Levy-C Unavailable [phone] Craine Smallwood MD Unavailable Vee Levy-C Unavailable [phone] Carine Smallwood MD Unavailable Vee Levy-C Unavailable Carine Smallwood MD Unavailable Vee Levy-C Unavailable [phone] Carine Smallwood MD Unavailable Vee Levy PA-C Unavailable [phone] Carine Smallwood MD Unavailable Vee Levy PA-C Unavailable [phone] Encounter Details Date Type Department Care Team Description 05/06/2005 [facility] Provider [place] [address] [place] [address] Social History Tobacco Use Types Packs/Day Years Used Date Smoking Tobacco: Every Day Cigarettes 1 10 Smokeless Tobacco: Never Alcohol Use Standard Drinks/Week Comments Yes 0 (1 standard drink = 0.6 oz pure alcoho l) Social drink/monthly Sex Assigned at Date Recorded Not on file documented as of this encounter Progress Notes Bernardino Key MD - 05/06/2005 8:25 AM CSTPROCEDURE/OPERATIVE REPORT Date of Procedure: 05/06/2005 PREOPERATIVE DIAGNOSIS: Torn right medial meniscus. POSTOPERATIVE DIAGNOSIS: Torn right medial meniscus. PROCEDURE: Arthroscopic partial right medial meniscectomy. SURGEON: Dr. Key. ANESTHESIA: 1% local plus IV sedation. INDICATIONS: This patient is a 34-year-old female who has been complaining of catching and pain in the right knee for the past month or 2. Her MRI scan and workup indicates the probability of a degenerative type tear in the posterior third of the medial meniscus, along with some chondromalacia patellae. She is being brought to the operating room due to failure to adequately respond to conservative care. PROCEDURE: After induction of 1% local anesthesia with the patient's right lower extremity having been placed in a knee santillan, her knee and lower extremity were prepped and draped in a sterile fashion. A standard anterolateral portal was created, and the arthroscope was introduced through it. A second anteromedial portal was created and late in the case, the arthroscope was placed through it, using these 2 portals interchangeably for the scope and instruments. FINDINGS FOR THE CASE: Are as follows: In the suprapatellar pouch, there was significant amounts of hypertrophic synovial tissue that were shaved away revealing a very good look at the patellofemoral joint. Probing of the undersurface of the patella indicated grade I chondromalacia with slight softening but no fissures or crevices were seen. The patella's relationship to the femoral groove showed slight tilt but not really a subluxation, and overall it was not felt that the lateral retinaculum was excessively tight, so a lateral release was not performed. The scope was then placed down into the medial compartment. Here there was noted to be a degenerative tear of the medial meniscus starting at the posterior medial corner and running all the way to the posterior horn. This was best seen by lifting it up underneath from the tibial surface. Using a combination of basket forceps and rivka, a partial medial meniscectomy was performed back to within 2 or 3 mm of the meniscal rim at the extreme posterior portion of the tibial plateau. This was beveled forward at the posteromedial corner, and when complete what remained behind was smooth and stable looking rim. I would estimate that perhaps 20% of the meniscus was actually excised. The joint surfaces of the medial compartment appeared relatively normal. The intercondylar notch region was cleared of synovial tissue. A good look at the anterior cruciate ligament showed it to be normal, and finally the lateral compartment was viewed and probed and no pathology seen there either. Thorough irrigation was then followed by closure using 3-0 nylon for both portals. A sterile compressive dressing was applied, and the patient was taken to recovery having tolerated the anesthetic without complications. Bernardino Key M.D. DIGNA/dick cc: EMS ANALYST ENGINEER documented in this encounter Plan of Treatment Not on filedocumented as of this encounter Visit Diagnoses Not on filedocumented in this encounter Care Teams Social Problems Specialist Relationship Specialty Start Date End Date Devin Britt DO PCP - General 04/18/05 09/04/11 [address] [place] [address] Damian Dowell MD PCP - Surgery 05/08/04 03/14/14 [facility] [address] [place] [address] Collin Singh MD PCP - Orthopaedics 01/23/0602/19/18 Frw, None PCP - General Family Practice 09/05/11 09/18/13 Allison Smyth PCP - General Family Practice 09/19/13 08/27/20 Lyndsey Guzman MD PCP - General Family Medicine 08/28/20 [facility] [address] [address] Carine Smallwood MD Assigned Surgical Provider 09/17/[address] [place] [address] [id number] Vee Levy, Assigned Surgical Provider 11/04/20 PA-C [address] [place] [address] [id number] Carine Smallwood MD Assigned Surgical Provider 11/05/[address] [place] [address] [id number] Vee Levy, Assigned Surgical Provider 12/30/20 PA-C [address] [place] [address] 529647 Carine Smallwood MD Assigned Surgical Provider 12/31/2002/[address] [place] [address] [phone] Vee Levy, Assigned Surgical Provider 03/1103/24/21 PA-C [address] [place] [address] Carine Smallwood MD Assigned Surgical Provider 02/25/2103/[address] [place] [address] Vee Levy, Assigned Surgical Provider 02/1102/24/21 PA-C [address] [place] [address] Carine Smallwood MD Assigned Surgical Provider 03/25/21 [address] [place] [address] Vee Levy, Assigned Surgical Provider 2 04/21/21 PA-C [address] [place] [address] Carine Smallwood MD Assigned Surgical Provider 05/27/21 [address] [place] [address] Vee Levy, Assigned Surgical Provider 2 05/26/21 PA-C [address] [place] [address] Carine Smallwood MD Assigned Surgical Provider 04/22/[address] [place] [address] Vee Levy, Assigned Surgical Provider 2 PA-C [address] [place] [address] documented as of this encounter
--- OUTSIDE RECORDS SUMMARY | 2022-02-06 08:57 | XMS_ITS | Encounter Summary ---
:1970 Author Organization [place] Address [address] [place] [address] Care Team Providers Name Role Phone Devin Britt DO Primary Care Provider Damian Dowell MD Unavailable Reason for Visit Reason Onset Date Comments Refill Request 04/30/2005 Encounter Details Date Type Department Care Team Description 04/30/2005 Refill [facility] - Devin Denny, DO Refill Request [place] [facility] [address] [place] [address] [address] 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 Is having surgery Thursday, May 06, 2004. Accepting this Rx will FAX it directly to the pharmacy. TROMAGNET CRANE OPERATOR documented in this encounter Plan of Treatment Not on filedocumented as of this encounter Visit Diagnoses Not on filedocumented in this encounter Care Teams Dividing Machine Operator Helper Relationship Specialty Start Date End Date Devin Britt DO PCP - General 04/18/05 09/04/11 [address] [place] [address] Damian Dowell MD PCP - Surgery 05/08/04 03/14/14 [facility] [address] [address] documented as of this encounter
--- OUTSIDE RECORDS SUMMARY | 2022-02-06 08:57 | XMS_ITS | Encounter Summary ---
:1970 Author Organization [place] Address [address] [place] [address] Care Team Providers Name Role Phone Devin Britt DO Primary Care Provider Damian Dowell MD Unavailable Reason for Visit Reason Onset Date Comments Refill Request 05/10/2005 would like change of medication Encounter Details Date Type Department Care Team Description 05/10/2005 Refill [facility] Kendal Hudson (would System in [place] [facility] like helen glynn of Orthopedics medication) [address] [place] [address] Social History Tobacco Use Types Packs/Day Years Used Date Smoking Tobacco: Every Day Cigarettes 1 10 Alcohol Use Standard Drinks/Week Comments Yes 0 (1 standard drink = 0.6 oz pure alcoho l) Social Sex Assigned at Date Recorded Not on file documented as of this encounter Miscellaneous Notes Telephone Encounter - Bernardino Key MD - 05/10/2005 12:41 PM CST done RR SURVEYOR MANAGER Telephone Encounter - Yeny Hudson RN - 05/10/2005 12:16 PM CST tc from pt stating that compazine is helping with nausea and vomiting from vicodin. The vicodin provides short term relief from pain. pt states knee is still swollen and quite painful. pt states that she kept trying to take the vicodin, even though it was making her sick. She is going to run out of pain meds over the weekend and would like something else. pt states that she will not have help caring for her 3 small children and feels that w/o something she will be unable to do that. please call [phone]. she uses [facility] in [place]. SURVEYOR MANAGER documented in this encounter Plan of Treatment Not on filedocumented as of this encounter Visit Diagnoses Not on filedocumented in this encounter Care Teams Syrup Maker Cook Relationship Specialty Start Date End Date Devin Britt, PCP - General 04/18/05 09/04/11 [address] [place] [address] Damian Dowell MD PCP - Surgery 05/08/04 03/14/14 [facility] [address] [place] [address] documented as of this encounter
--- OUTSIDE RECORDS SUMMARY | 2022-02-06 08:57 | XMS_ITS | Encounter Summary ---
:1970 Author Organization [place] Address [address] [place] [address] Care Team Providers Name Role Phone Devin Britt DO Primary Care Provider Damian Dowell MD Unavailable Reason for Visit Reason Comments Imm/Inj Depo shot unable to get pt.l ate Encounter Details Date Type Department Care Team Description 05/23/2005 [facility]Nurse [facility] Im m/Inj (Depo shot Visit System - [place] in unable to get pt.late) [address] [address] Social History Tobacco Use Types Packs/Day Years Used Date Smoking Tobacco: Every Day Cigarettes 1 10 Alcohol Use Standard Drinks/Week Comments Yes 0 (1 standard drink = 0.6 oz pure alcoho l) Social Sex Assigned at Date Recorded Not on file documented as of this encounter Nursing Notes 05/23/2005 11:30 AM CST >> MARIANNE MEDINA 05/23/2005 11:37 am Pt. last Depo shot was 10-24-06. 109 day interval. Per protocol pt. to have ICON, abstain from intercourse for 10 days and RTC for ICON. If negative, injection may be given. documented in this encounter Plan of Treatment Not on filedocumented as of this encounter Procedures Procedure Name Priority Date/Time Associated Diagnosis Comme anoop PIÑACL AFF HCG, QUAL Routine 05/23/2005 11:26 Contraceptive Edison mt Results for this URINE AM ORDER CHECKER PACKER PROCESSER Nos procedure are i n the results section. documented in this encounter Results HCG, QUAL URINE (05/23/2005 11:26 AM ORDER CHECKER PACKER PROCESSER) P athologist Signature HCG Qual Urine Negative NEG [facility] Specimen Anatomical Collection Method Collection Time Receive d Time (Source) Location / / Volume Laterality 05/23/2005 11:26 05/23/2005 AM ORDER CHECKER PACKER PROCESSER 11:36 AM ORDER CHECKER PACKER PROCESSER Devin Britt DO LABORATORY Performing Organization Address City/State/ZIP Code Phon e Number [facility] [address] documented in this encounter Visit Diagnoses Diagnosis Unspecified contraceptive management - P rimary documented in this encounter Care Teams Laborer [employer] Relationship Specialty Start Date End Date Devin Britt DO PCP - General 04/18/05 09/04/11 [address] [place] [address] Damian Dowell MD PCP - Surgery 05/08/04 03/14/14 [facility] [address] [place] [address] documented as of this encounter
--- OUTSIDE RECORDS SUMMARY | 2022-02-06 08:57 | XMS_ITS | Encounter Summary ---
:1970 Author Organization [place] Address [address] [place] [address] Care Team Providers Name Role Phone Devin Britt DO Primary Care Provider Damian Dowell MD Unavailable Reason for Visit Reason Comments Musculoskeletal Problem right knee Encounter Details Date Type Department Care Team Description 08/03/2005 Office Visit [facility] Jonny Erwin, JOINT PAIN-LOWER LEG System in [place]m Ramírez MD (Primary Dx) Urgent Care [facility] [address] [address] [place] [phone] Social History Tobacco Use Types Packs/Day Years Used Date Smoking Tobacco: Every Day Cigarettes 1 10 Alcohol Use Standard Drinks/Week Comments Yes 0 (1 standard drink = 0.6 oz pure alcoho l) Social Sex Assigned at Date Recorded Not on file documented as of this encounter Last Filed Vital Signs Vital Sign Reading Time Taken Comments Blood Pressure 124/72 08/03/2005 11:45 AM CDT Pulse 98 08/03/2005 11:45 AM CDT Temperature 36.9 ??C (98.5 ??F) 08/03/2005 11:45 AM CDT Respiratory Rate - - Oxygen Saturation - - Inhaled Oxygen Concentration - - Weight - - Height - - Body Mass Index - - documented in this encounter Progress Notes Marylu Acosta - 08/03/2005 3:43 PM CDT SUBJECTIVE: 35 year old female presents complaining of right knee pain. Her recent history is significant for arthroscopic repair of a meniscal tear back in April of this year. She was doing well buthad a fall about a week ago and believes that she has possibly re-injured the knee in the same way. She has had some swelling, discomfort when she is up and on it, but also when just keeping it slightly bent. OBJECTIVE: Examination shows no gross deformity. There is slight puffiness about the past surgical sites. Rangeof motion is full. ASSESSMENT: 1. Right knee strain. PLAN: 1. Vicodin as directed to get her through the weekend. 2. She is to call Orthopedics the first thing Friday morning and have recheck, let them decide on need for repeat MRI, etc. Jonny Erwin M.D./dick documented in this encounter Plan of Treatment Not on filedocumented as of this encounter Procedures Procedure Name Priority Date/Time Associated Diagnosis Comme [facility] X-RAY KNEE 3 VIEWS Routine 08/03/2005 Joint Pain-Lower Le g Results for this procedure are i n the results section . documented in this encounter Results X-RAY KNEE 3 VIEW (08/03/2005) Anatomical Region Laterality Modality Other Narrative 08/03/2005 KNEE, THREE VIEWS: ?? HISTORY: Pain following a recent injury. IMPRESSION: ??Negative. Maurisio Patel M.D./celine D: ??08/03/05 T: ??08/05/05 Jonny Erwin MD GENERAL IMAGING documented in this encounter Visit Diagnoses Diagnosis Pain in joint, lower leg - Primary documented in this encounter Care Teams Transitions Manager Rn Relationship Specialty Start Date End Date Devin Britt DO PCP - General 04/18/05 09/04/11 [address] [place] [address] Damian Dowell MD PCP - Surgery 05/08/04 03/14/[address] [address] documented as of this encounter
--- OUTSIDE RECORDS SUMMARY | 2022-02-06 08:57 | XMS_ITS | Encounter Summary ---
:1970 Author Organization [place] Address [address] [place] [address] Care Team Providers Name Role Phone Devin Britt DO Primary Care Provider Damian Dowell MD Unavailable Reason for Visit Reason Comments Knee(s) Surgery Followup rt. knee Encounter Details Date Type Department Care Team Description 05/08/2005 Office Visit [facility] Willi Cardoso PA-C SURGERY FOLLOWUP NEC System in [place] XXX XXX (Primary Dx) Orthopedics [address] [facility] [address] [facility] [place], [place] [phone] Social History Tobacco Use Types Packs/Day Years Used Date Smoking Tobacco: Every Day Cigarettes 1 10 Alcohol Use Standard Drinks/Week Comments Yes 0 (1 standard drink = 0.6 oz pure alcoho l) Social Sex Assigned at Date Recorded Not on file documented as of this encounter Progress Notes Willi Cardoso PA - 05/08/2005 4:15 PM CSTCLINIC ENCOUNTER SUBJECTIVE: Ms. Sloan is a 34-year-old female who is only two days status post a partial right medial meniscectomy performed by Dr. Key. She presents today for evaluation of this knee as she is having significant discomfort and feels that there is a substantial amount of swelling in her knee. Per Tomasa, the nurse marketing operations manager, she did speak with Dr. Key and Dr. Key stated via the phone that if the patient did wish indeed to come in today and were seen by myself, if it is felt that an aspiration of this knee may help that I could go ahead and give it a try. OBJECTIVE: On examination there is indeed a significant effusion about the knee, 1+ to 2, and while it certainly is not the biggest one I have ever seen, it still is quite substantial. There is no excessive erythema and the incision sites appear to be benign. The patient does have a difficult time with range of motion, being able to flex the knee as this does cause her significant tightness and discomfort about the entire anterior and small area of the posterior region of the knee. The patient actually is requesting an aspiration as well. She states that she also has been nauseated from the pain medication and at this time is requesting a different pain medication. After discussion her knee was prepared in a sterile fashion and in the supine position with the leg extended, utilizing a superior lateral approach, an attempt was made to aspirate the knee joint. Unfortunately the first attempt was unsuccessful, but on the second try a little over 20 cc of serosanguineous fluid was evacuated from the knee. The procedure was tolerated relatively well after which a dressing was applied and a compressive lita bandage was placed. The patient was heavily encouraged to go home and rest and to stay off the knee as much as possible as she currently is off work. With regards to the nausea, she was given a prescription for some Compazine 5 mg to be taken t.i.d. as needed prior to her Vicodin and while she was requesting a different pain medication I told her that Dr. Key would be in the office tomorrow and that if she still was in need of one she could contact him to see what his thoughts would be. She was most understanding of this and she was told to keep her regular follow-up appointment with myself a few days from now. MAGALY Gregory/patrick cc: NOPATHOLOGIST documented in this encounter Nursing Notes 05/08/2005 4:15 PM CST >> WOLF KIMBALL (ALICIA) 05/08/2005 4:48 pm right knee , PO 05/06/05. Rt. knee arthoscopic partial medial meniscectomy. Pt. requests something different for pain, as she is having adverse reactions to the vicodin. documented in this encounter Plan of Treatment Not on filedocumented as of this encounter Procedures Procedure Name Priority Date/Time Associated Diagnosis Comme nts HC DRAIN/INJ MAJOR Routine 05/09/2005 9:01 AM IMMUNOPATHOLOGIST Surgery Foll owup Nec JOINT/BURSA W/O US documented in this encounter Visit Diagnoses Diagnosis Follow-up examination, following other s urgery - Primary documented in this encounter Care Teams Telephone Solicitor Relationship Specialty Start Date End Date Devin Britt DO PCP - General 04/18/05 09/04/11 [address] [place] [address] Damian Dowell MD PCP - Surgery 05/08/04 03/14/14 [facility] [address] [place] [address] documented as of this encounter
--- OUTSIDE RECORDS SUMMARY | 2022-02-06 08:57 | XMS_ITS | Encounter Summary ---
:1970 Author Organization [place] Address [address] [place] [address] Care Team Providers Name Role Phone Devin Britt DO Primary Care Provider Damian Dowell MD Unavailable Reason for Visit Reason Onset Date Comments Erroneous encounter-disregard 08/26/2005 Encounter Details Date Type Department Care Team Description 08/26/2005 Refill [facility] Devin Britt, Ricardo caraballo System - [place] in DO encounter-disregard [facility] [address] [place] [address] [address] [facility] [place] [address] [phone] Social History Tobacco Use Types Packs/Day Years Used Date Smoking Tobacco: Every Day Cigarettes 1 10 Alcohol Use Standard Drinks/Week Comments Yes 0 (1 standard drink = 0.6 oz pure alcoho l) Social Sex Assigned at Date Recorded Not on file documented as of this encounter Miscellaneous Notes Telephone Encounter - Rashmi Gold - 08/26/2005 3:43 PM CDT documented in this encounter Plan of Treatment Not on filedocumented as of this encounter Visit Diagnoses Diagnosis Unspecified contraceptive management - P rimary documented in this encounter Care Teams Db2 Developer Relationship Specialty Start Date End Date Devin Britt DO PCP - General 04/18/05 09/04/11 [address] [place] [address] Damian Dowell MD PCP - Surgery 05/08/04 03/14/14 [facility] [address] [address] documented as of this encounter
--- OUTSIDE RECORDS SUMMARY | 2022-02-06 08:57 | XMS_ITS | Encounter Summary ---
:1970 Author Organization [facility] Address [address] [place] [address] Care Team Providers Name Role Phone Devin Britt DO Primary Care Provider Damian Dowell MD Unavailable Reason for Visit Reason Comments Elbow Pain Left elbow pain Encounter Details Date Type Department Care Team Description 05/24/2005 Office Visit [facility] Willi Cardoso PA-C JOINT PAIN-UP/ARM System in [place] XXX XXX (Primary Dx) Orthopedics [address] [facility] [address] [place] [address] [place], [place] [address] [phone] Social History Tobacco Use Types Packs/Day Years Used Date Smoking Tobacco: Every Day Cigarettes 1 10 Alcohol Use Standard Drinks/Week Comments Yes 0 (1 standard drink = 0.6 oz pure alcoho l) Social Sex Assigned at Date Recorded Not on file documented as of this encounter Progress Notes Willi Cardoso PA - 05/27/2005 2:32 PM GREETING CARD WRITER CLINIC ENCOUNTER SUBJECTIVE: Ms. Sloan is a 34-year-old female who presents today for evaluation of some left elbow pain. Apparently she did take a fall about 1 week ago and since then has been having some discomfort in her elbow specifically when she places it on an object. She really has not had too much discomfort using the elbow to lift objects and does not describe a catching or locking sensation. She was seen, I believe, at [facility] for this. X-rays were taken which she apparently was unable to obtain for today's visit. She does not have any radiation of the pain. It is located pretty much to the olecranon and a small radius of about 1 centimeter around there. She has not had any previous problems with the elbow. She is not sure exactly where she did land on it. OBJECTIVE: CMS of the hand is intact. Range of motion of the elbow is actually quite full. There is minimal tenderness about the lateral epicondyle and the radial head. There is slightly more tenderness at the medial epicondyle, but the area of maximal tenderness is about the olecranon. There is not a substantial amount of swelling, but I think that I do detect a small amount of some bursal inflammation. X-rays were taken today in the office, and I do not see any evidence of intraarticular swelling or acute fracture. ASSESSMENT AND PLAN: 34-year-old female with left elbow pain going on for about 1 week hurting her mostly when she sets her elbow on a certain object. At this point in time it was felt appropriate to go ahead and continue treatment with conservative measures. She was given a pair of Heelbo pads to wear basically at all times. She stated that she thinks she would be able to continue working at her job, as stated she did not have too much difficulty lifting objects. If she has any questions or concerns or any new symptoms she was encouraged to call at any time. Otherwise she was told to briefly mention to Dr. eKy how things are going at her follow-up visit for her knee. However, she was instructed that if she was still having problems with the elbow she would make a separate appointment so as to not take up too much of Dr. Key's time, and she understood the importance of doing so if things are not beginning to resolve within the next few weeks. MAGALY Gregory/edda cc: TING CARD WRITER documented in this encounter Nursing Notes 05/24/2005 10:00 AM CST >> ASHLEY TORRES 05/24/2005 10:04 am Consult left elbow pain. Fell down 10-12 steps on May 15. Still experiencing pain in her elbow. documented in this encounter Plan of Treatment Not on filedocumented as of this encounter Procedures Procedure Name Priority Date/Time Associated Diagnosis Comme [facility] X-RAY ELBOW 2 VIEWS Routine 05/24/2005 Joint Pain-Up/Arm Results for this procedure are i n the results section . documented in this encounter Results X-RAY ELBOW 2 VW (05/24/2005) Anatomical Region Laterality Modality Other Narrative 05/24/2005 LEFT ELBOW, TWO VIEWS HISTORY: Pain. IMPRESSION: Negative. Maurisio Patel M.D./prema Willi Cardoso PA-C GENERAL IMAGING documented in this encounter Visit Diagnoses Diagnosis Pain in joint, upper arm - Primary documented in this encounter Care Teams Lemon Grower Relationship Specialty Start Date End Date Devin Britt DO PCP - General 04/18/05 09/04/11 [address] [place] [address] Damian Dowell MD PCP - Surgery 05/08/04 03/14/14 PENDING SALE TO [facility] [address] [place] [id number] documented as of this encounter
--- OUTSIDE RECORDS SUMMARY | 2022-02-06 08:57 | XMS_ITS | Encounter Summary ---
:1970 Author Organization [facility] Address [address] [place] [address] Care Team Providers Name Role Phone Urvashi Mccabe MD Primary Care Provider Edwin Rangel MD Primary Care Provider Damian Dowell MD Unavailable Reason for Visit Reason Onset Date Comments Refill Request 11/06/2004 gregory Encounter Details Date Type Department Care Team Description 11/06/2004 Refill [facility] [place], Refill Re quest System in [place] MD Urvashi (percodan) Internal Medicine [facility] [address] [place] [address] [address] [place], [place] [address] (Wo rk) Social History Tobacco Use Types Packs/Day Years Used Date Smoking Tobacco: Every Day Cigarettes 1 10 L ast attempted to quit: 04/02/2004 Alcohol Use Standard Drinks/Week Comments Yes 0 (1 standard drink = 0.6 oz pure alcoho l) Social Sex Assigned at Date Recorded Not on file documented as of this encounter Miscellaneous Notes Telephone Encounter - Yesi Goss - 11/07/2004 8:10 AM CDT Patient contacted and will call back to schedule appointment. Telephone Encounter - Urvashi Lowery MD - 11/06/2004 5:31 PM CDT Needs to be seen prior to next refill. Telephone Encounter - Alysa Mosley - 11/06/2004 1:30 PM CDT Pt requesting refills for her back pain, she said she is going to physical therapy now 2x/week and had an MRI yesterday. She also is unclear when she is to follow up again with you. documented in this encounter Plan of Treatment Not on filedocumented as of this encounter Visit Diagnoses Not on filedocumented in this encounter Care Teams Concrete Engineering Technician Relationship Specialty Start Date End Date Urvashi Mccabe MD PCP - General 11/07/04 04/17/05 [facility] [address] [facility] [address] [place] [address] Edwin Rangel MD PCP - General 05/08/04 11/06/[address] [address] Damian Dowell MD PCP - Surgery 05/08/04 03/14/14 [facility] [address] [place] [address] documented as of this encounter
--- OUTSIDE RECORDS SUMMARY | 2022-02-06 08:57 | XMS_ITS | Encounter Summary ---
:1970 Author Organization [facility] Address [address] [place] [address] Care Team Providers Name Role Phone Devin Britt DO Primary Care Provider Damian Dowell MD Unavailable Reason for Referral - Closed Specialty Diagnoses / Procedures Referred By Contact Refer red To Contact Diagnoses Unspecified contraceptive management Family history of osteoporosis Myalgia and myositis, unspecified Diarrhea Devin Britt DO [address] [place] [address] Referral ID Status Reason Start Date Expiration Date Visits Requ ested Visits Authorized [id number] Closed 08/26/2005 04/13/2011 1 1 Reason for Visit Reason Comments Orders would like a bone density sc an Abdominal Pain right side Imm/Inj depo shot Pharyngitis throat hurts for a couple da ys Fever runing 100.2 at home Fibromyalgia still hurting Diarrhea 20 out of 30 days she has di arrhea Encounter Details Date Type Department Care Team Description 08/26/2005 Office Visit [facility] Devin Britt ACEPTIVE MANGMT NOS (Primary Dx); System - [place] in [place], DO FAMILY HX OSTEOPOROSIS; [facility] [address] MYALGIA AND MYOSITIS NOS; Practice [place] DIARRHEA NOS; [address] [address] TOBACCO USE DISORDER [place], [place] [phone] (Work) [phone] Social History Tobacco Use Types Packs/Day Years Used Date Smoking Tobacco: Every Day Cigarettes 1 10 Alcohol Use Standard Drinks/Week Comments Yes 0 (1 standard drink = 0.6 oz pure alcoho l) Social Sex Assigned at Date Recorded Not on file documented as of this encounter Last Filed Vital Signs Vital Sign Reading Time Taken Comments Blood Pressure 102/70 08/26/2005 3:30 PM CDT Pulse 89 08/26/2005 3:30 PM CDT Temperature 36.8 ??C (98.2 ??F) 08/26/2005 3:30 PM CDT Respiratory Rate - - Oxygen Saturation - - Inhaled Oxygen Concentration - - Weight 81.8 kg (180 lb 4 oz) 08/26/2005 3:30 PM CDT Height - - Body Mass Index 28.23 04/26/2005 12:00 AM RESOURCE DEVELOPMENT DIRECTOR documented in this encounter Progress Notes Devin Britt DO - 09/03/2005 2:29 PM CDT CLINIC ENCOUNTER SUBJECTIVE: The patient is here today with multiple issues: 1. She would like a bone density scan, has a family history of osteoporosis with her grandmother at age 36 and mother with the diagnosis at age 40. Discussion with patient and that was ordered. 2. Abdominal pain in the right lower quadrant with intermittent diarrhea and constipation, been going on for a couple of months. No blood in the stool. 3. Depo injection. She is due today and is not overdo, that will be done. 4. Pharyngitis for a couple of days. 5. Mild fever at home. 6. Fibromyalgia with chronic pain management. OBJECTIVE: The patient is nontoxic, well hydrated. EARS, canals without erythema or drainage and clear. TMs intact bilaterally with good reflective properties and no air-fluid sign. NOSE, septum midline, mucosa moist without purulent drainage. THROAT without erythema or exudate. NECK is supple and symmetric without masses, lesions or lymphadenopathy. HEART rate and rhythm is regular without murmurs, clicks or thrills. LUNGS are clear to auscultation without rales, rhonchi or wheezes. ABDOMEN soft. Bowel sounds are present in all four quadrants. Mild tenderness to deep palpation in the right and left lower quadrants. No rebound or peritoneal signs present. EXTREMITIES without cyanosis, clubbing or edema. There is general myalgias to palpation in the arms and legs. ASSESSMENT: 1. Has family history of bone density disease. Bone density scan ordered. 2. Abdominal pain with diarrhea. Referred for colonoscopy. In the meantime will try some Levsinex. 3. Pharyngitis. Looks viral at this point. No changes. 4. Fibromyalgia. Referral to Pain Clinic. Discussed using Ultram. I told her I would give her a one-time refill and give her time to get to the Pain Clinic. She states she went through a Pain Clinic about 15 years ago at [facility]. We do not have notes for that at this time. Was placed on Ultram at that time. I gave her #40 and told her I will not refill her pain medicines again and she needs a referral to a Pain Clinic if she agreed to go. Also brought up quitting smoking at the end of this visit. Discussed options with the patient. She wanted to try the patch . In that respect, I told her she absolutely cannot smoke when she has the patch on. Devin Britt D.O. RENATE/osito cc: documented in this encounter Plan of Treatment Not on filedocumented as of this encounter Procedures Procedure Name Priority Date/Time Associated Diagnosis Comme nts CL AFF CBC WITH Routine 08/26/2005 4:11 PM Contraceptive Mangm t Results for this PLATELETS CDT Nos procedure are in Family Hx Osteop orosis the results Myalgia And Myositis section . Nos Diarrhea Nos documented in this encounter Results CBC WITH PLATELETS (08/26/2005 4:11 PM CDT) athologist Signature WBC 8.4 4.0 - 11.0 [facility] 10e9/L [facility] RBC Count 4.48 3.8 - 5.2 [facility] 10e12/L [facility] Hemoglobin 14.1 11.7 - [facility] 15.7 g/dL [facility] Hematocrit 42.0 35.0 - [facility] 47.0 % [facility] MCV 94 78 - 100 [facility] fl [facility] MCH 31.5 26.5 - [facility] 33.0 pg [facility] MCHC 33.6 32.0 - [facility] 36.0 g/dL [facility] RDW 13.2 10.0 - [facility] 15.0 % [facility] Platelet Count 307 150 - 450 [facility] 10e9/L [facility] Specimen Anatomical Collection Method Collection Time Receive d Time (Source) Location / / Volume Laterality 08/26/2005 4:11 PM 6 4:16 CDT PM CDT Devin Britt DO LABORATORY Performing Organization Address City/State/ZIP Code Phon e Number [facility] documented in this encounter Visit Diagnoses Diagnosis Unspecified contraceptive management - P rimary Family history of osteoporosis Myalgia and myositis, unspecified Mylagia and myositis, unspecified Diarrhea Tobacco use disorder documented in this encounter Care Teams Shirt Ironer Relationship Specialty Start Date End Date Devin Britt DO PCP - General 04/18/05 09/04/11 [address] [place] [address] Damian Dowell MD PCP - Surgery 05/08/04 03/14/14 [facility] [address] [place] [address] documented as of this encounter
--- OUTSIDE RECORDS SUMMARY | 2022-02-06 08:57 | XMS_ITS | Encounter Summary ---
:1970 Author Organization [facility] Address [address] [place] [address] Care Team Providers Name Role Phone Devin Britt DO Primary Care Provider Damian Dowell MD Unavailable Encounter Details Date Type Department Care Team Description 08/30/2005 Hospital Pathology [facility] Ariana Salgado, System in [facility] [address] [facility] [address] [place] [address] [place] [address] [phone] Social History Tobacco Use Types Packs/Day Years [...] Diagnosis Comme nts CL AFF SURGICAL Routine 08/30/2005 12:00 AM Resul ts for this PATHOLOGY CDT procedure are i n the results section. documented in this encounter Results SURGICAL PATHOLOGY (08/30/2005 12:00 AM CDT) Component Value Ref Test Analysis Performed At [facility] Method Time Signature Copath Report Patient Name: AILEEN CHRISTIAN MR#: [id number] Specimen #: [id number] Collected: 08/30/2005 Received: 08/30/2005 Reported: 09/03/2005 13:45 Ordering Phy(s): ARIANA SALGADO SPECIMEN(S): Terminal ileum biopsy FINAL DIAGNOSIS: Terminal ileum biopsies: ? - ??Small bowel mucosa without diagnostic abnormality . ? - ??Villi and plasma cells present. ? - ??No evidence of celiac disease, Whipple's disease, or Giardia. ? - ??No evidence of granulomas. Electronically signed out by: Jeancarlos Cui M.D. CLINICAL HISTORY: None given. GROSS: The specimen container, labeled with the patient's name and source as terminal ileum biopsy, contains three tissues, 1 millimete darlene Ibrahim/henry ??09/02/05 MICROSCOPIC: Performed. JENNIFER/henry TESTING LAB LOCATION: [address] [address] COLLECTION SITE: Client: [facility] Location: OP (W) Specimen (Source) Anatomical Collection Method Collection Time Re ceived Time Location / / Volume Laterality 08/30/2005 08/30/2005 1:40 PM CDT Ariana Salgado DO LABORATORY Performing Organization Address City/State/ZIP Code Phon e Number [facility] documented in this encounter Visit Diagnoses Not on filedocumented in this encounter Care Teams Core Paster Relationship Specialty Start Date End Date Devin Britt DO PCP - General 04/18/05 09/04/11 [address] [place] [address] Damian Dowell MD PCP - Surgery 05/08/04 03/14/14 [facility] [address] [place] [address] documented as of this encounter
--- OUTSIDE RECORDS SUMMARY | 2022-02-06 08:57 | XMS_ITS | Encounter Summary ---
:1970 Author Organization [facility] Address [address] [place] [address] Care Team Providers Name Role Phone Devin Lopez DO Primary Care Provider Damian Dowell MD Unavailable Reason for Visit Reason Comments Physical Yearly PE-last depo was 01/13 07/17 Pre-Op Exam Surgery meniscus tear 6 Encounter Details Date Type Department Care Team Description 04/25/2005 Office Visit [facility] Devin Lopez S SIMPLEX NOS (Primary Dx); System - [place], DO ACNE NEC; [facility] [address] [facility] ROUTINE MEDICAL EXAM Practice [place], [place] [address] [facility] [address] [place], [place] [phone] (Work) [phone] Social History Tobacco Use Types Packs/Day Years Used Date Smoking Tobacco: Every Day Cigarettes 1 10 Alcohol Use Standard Drinks/Week Comments Yes 0 (1 standard drink = 0.6 oz pure alcoho l) Social Sex Assigned at Date Recorded Not on file documented as of this encounter Last Filed Vital Signs Vital Sign Reading Time Taken Comments Blood Pressure 120/62 04/25/2005 3:30 PM SECTION LEADER Pulse 80 04/25/2005 3:30 PM SECTION LEADER Temperature 37.5 ??C (99.5 ??F) 04/25/2005 3:30 PM SECTION LEADER Respiratory Rate - - Oxygen Saturation - - Inhaled Oxygen Concentration - - Weight 82.7 kg (182 lb 4 oz) 04/25/2005 3:30 PM SECTION LEADER Height - - Body Mass Index 29.19 10/22/2004 3:00 PM CDT documented in this encounter Progress Notes Devin Lopez DO - 04/25/2005 3:30 PM SECTION LEADER Quick Note: Please call patient or send letter with normal results. HDL a bit low, rc 1 year. Diet, exercise, wt loss should bring up HDL. ION LEADER Sharla Campbell - 04/25/2005 3:30 PM SECTION LEADER Quick Note: Results printed and mailed. ION LEADER Devin Lopez DO - 04/25/2005 3:30 PM CSTCLINIC ENCOUNTER ADDENDUM: She had a preop evaluation today and also had a general physical and multiple issues discussed. She had a Pap done, which was negative and her female exam was negative. Breast exam showed no masses or areas of concern today. She has a history of acne, which she wanted discussed. I think we started her on doxycycline for facial cystic acne. Also has been on Wellbutrin for one year and wanted a recheck on that today. She is doing well on the medication and would like to continue. She has been off her Seroquel on her own for posttraumatic stress disorder and has continued off of that and seems to do well. Does not want to try that. She has failed Paxil, Prozac, Effexor and Zoloft in the past. She is not suicidal and otherwise with her depression is doing well. See other note for physical exam. She is to recheck with me in one to two months for evaluation to be cleared for surgery. Devin Lopez D.O. RENATE/osito cc: ION LEADER documented in this encounter Plan of Treatment Not on filedocumented as of this encounter Procedures Procedure Name Priority Date/Time Associated Diagnosis Comme nts CL AFF A.M.A. LIPID Routine 04/25/2005 4:53 PM Herpes Si mplex Nos Results for this PANEL SECTION LEADER Acne Nec procedure are i n the results section. HCL PAP THIN LAYER Routine 04/25/2005 12:00 AM Routine Medical Exam Results for this SCREEN SECTION LEADER procedure are i n the results section. ZZC Routine 04/25/2005 Herpes Simplex N os ELECTROCARDIOGRAM, Acne Nec COMP W/READ HC CHEST TWO VIEWS, Routine 04/25/2005 Herpes Simpl ex Nos Results for this FRONT/LAT Acne Nec procedure are i n the results section. documented in this encounter Results (ABNORMAL) A.M.A. LIPID PANEL (04/25/2005 4:53 PM SECTION LEADER) P athologist Signature Cholesterol 180 0 - 200 [facility] mg/dL [facility] Comment: LDL Cholesterol is the primary guide to therapy: LDL-cholesterol goal in high risk patients is <100 mg/dL and in very high risk patients is <70 mg/dL. The NCEP recommends further evaluation of: patients with cholesterol <200 mg/dL if additional risk factors are present, cholesterol >240 mg/dL, triglycerides >150 mg/dL, or HDL <40 mg/dL. Triglycerides 190 (H) 0 - 150 mg/dL [facility] HDL Cholesterol 35 (L) 50 - 110 mg/dL [facility] LDL Cholesterol Calculated 107 0 - 129 mg/dL [facility] Comment: LDL Cholesterol is the primary guide to therapy: LDL-cholesterol goal in high risk patients is <100 mg/dL and in very high risk patients is <70 mg/dL. VLDL-Cholesterol 38 (H) 0 - 30 mg/dL [facility] Cholesterol/HDL Ratio 5.1 (H) 0.0 - 5.0 [facility] Specimen Anatomical Collection Method Collection Time Receive d Time (Source) Location / / Volume Laterality 04/25/2005 4:53 PM 6 5:03 SECTION LEADER PM SECTION LEADER Devin Lopez DO LABORATORY Performing Organization Address City/State/ZIP Code Phon e Number [facility] [address] A THIN LAYER PAP SCREEN (04/25/2005 12:00 AM SECTION LEADER) Component Value Ref Test Analysis Performed At [facility] Range Method Time Signature PAP NIL COPATH Copath Report COPATH Patient Name: AILEEN CHRISTIAN MR#: [id number] Specimen #: [id number] Collected: 04/25/2005 Received: 04/28/2005 Reported: 05/01/2005 10:12 Ordering Phy(s): DEVIN LOPEZ SPECIMEN/STAIN PROCESS: Pap thin layer prep screening ([facility]) ? Pap-Cyto x 1, Reflex HPV x 1 SOURCE: Cervical, endocervical ---- Pap thin layer prep screening ([facility]) SPECIMEN ADEQUACY: Satisfactory for evaluation. -Transitional zone component present. CYTOLOGIC INTERPRETATION: Negative for Intraepithelial Lesion or Malignancy Electronically signed out by: ALANNA Booth (ASCP) Processed at [facility], [facility], screened at [facility] CLINICAL HISTORY: LMP: no lmp recorded Previous normal pap: 05-02-04, TESTING LAB LOCATION: [place] [address] COLLECTION SITE: Client: ??[facility] Location: [facility]) Specimen (Source) Anatomical Collection Method Collection Time Re ceived Time Location / / Volume Laterality 04/25/2005 04/28/2005 8:01 AM SECTION LEADER Devin Lopez DO LABORATORY Performing Organization Address City/State/ZIP Code Phon e Number [facility] CHEST X-RAY 2 VW (04/25/2005) Anatomical Region Laterality Modality Other Narrative 04/25/2005 PA AND LATERAL VIEWS OF THE CHEST HISTORY: Infection. IMPRESSION: Negative chest. Maurisio Patel M.D./prema Devin Lopez DO GENERAL IMAGING ELECTROCARDIOGRAM, COMP W/READ (04/25/2005) Narrative This result has an attachment that is no t available. Devin Lopez DO EKG TECHNICAL documented in this encounter Visit Diagnoses Diagnosis Herpes simplex without mention of compli cation - Primary Other acne Routine general medical examination at a health care facility documented in this encounter Care Teams Project Management Professor Relationship Specialty Start Date End Date Devin Lopez DO PCP - General 04/18/05 09/04/11 [address] [place] [address] Damian Dowell MD PCP - Surgery 05/08/04 03/14/14 [facility] [address] [place] [phone] documented as of this encounter
--- OUTSIDE RECORDS SUMMARY | 2022-02-06 08:57 | XMS_ITS | Encounter Summary ---
:1970 Author Organization [place] Address [address] [place] [address] Care Team Providers Name Role Phone Devin Britt DO Primary Care Provider Damian Dowell MD Unavailable Reason for Visit Reason Comments PT Discharge Summary knee Encounter Details Date Type Department Care Team Description 10/21/2005 [facility] Elisabeth Dawkins PT PT Discharge Summary Health/Nurse System in [facility] (knee) Visit Physical Therapy Health System in [address] [place] [phone] [place], [place] [phone] [id number] Social History Tobacco Use Types Packs/Day Years Used Date Smoking Tobacco: Every Day Cigarettes 1 10 Alcohol Use Standard Drinks/Week Comments Yes 0 (1 standard drink = 0.6 oz pure alcoho l) Social Sex Assigned at Date Recorded Not on file documented as of this encounter Progress Notes Elisabeth Dawkins - 10/21/2005 10:29 AM CDT PHYSICAL THERAPY SUMMATION OF EPISODE OF CARE Patient Name: Aileen Sloan : 1970 Dates of Service: 08/09/05-08/19/05 Number of Visits: 2 Referring Provider: Willi Cardoso PA-C Specialty Tracking: Outpatient Current Physical/Functional Status: Patient Specific Functional Scale Q1: Climb stairs. Initial: 07/22 - Final: Unable to rate/10 Q2: Squat. Initial: 07/22 - Final: Unable to rate/10 Q3: Prolonged sitting in car. Initial: 10/21 - Final: Unable to rate/10 (0 = unable to perform activity / 10 = able to perform activity at the same level as before injury or problem) Pain: Initial 01/21 - Final 11/21 Patient is independent with Jonathan Curtis taping of patella and noted improvement with stair climbing. Degree of Anticipated Goals and Expected Outcomes Achieved: Status of anticipated goals and outcomes is unknown. Criteria for Discharge: Patient/client, caregiver, or legal guardian declined to continue intervention. Discharge Plan: Home program: quad strengthening Equipment provided: taping supplies Therapist: Elisabeth Dawkins, PT Date: 10/21/2005 documented in this encounter Plan of Treatment Not on filedocumented as of this encounter Visit Diagnoses Not on filedocumented in this encounter Care Teams Photographic Technician Relationship Specialty Start Date End Date Devin Britt DO PCP - General 04/18/05 09/04/11 [address] [place] [address] Damian Dowell MD PCP - Surgery 05/08/04 03/14/14 [facility] [address] [place] [address] documented as of this encounter
--- OUTSIDE RECORDS SUMMARY | 2022-02-06 08:57 | XMS_ITS | Encounter Summary ---
:1970 Author Organization [place] Address [address] [place] [address] Care Team Providers Name Role Phone Devin Britt DO Primary Care Provider Damian Dowell MD Unavailable Reason for Visit Reason Comments Schedule Surgery Encounter Details Date Type Department Care Team Description 04/26/2005 Allied [facility]Nurse [facility] in [facility] Sain[facility] [address] [place] [phone] Social History Tobacco Use Types Packs/Day Years Used Date Smoking Tobacco: Every Day Cigarettes 1 10 Alcohol Use Standard Drinks/Week Comments Yes 0 (1 standard drink = 0.6 oz pure alcoho l) Social Sex Assigned at Date Recorded Not on file documented as of this encounter Last Filed Vital Signs Vital Sign Reading Time Taken Comments Blood Pressure - - Pulse - - Temperature - - Respiratory Rate - - Oxygen Saturation - - Inhaled Oxygen Concentration - - Weight 82.6 kg (182 lb) 04/26/2005 12:00 AM DIE REPAIRER FORGING Height 170.2 cm (5' 7) 04/26/2005 12:00 AM DIE REPAIRER FORGING Body Mass Index 28.51 04/26/2005 12:00 AM DIE REPAIRER FORGING documented in this encounter Nursing Notes 04/26/2005 12:00 PM CST >> BRUCE HUDSON 04/26/2005 2:19 pm pt is scheduled for surgery on 05/06/[address] Key. See letter attached to this encounter. Body Mass Index is 28.50 kg/(m^2). documented in this encounter Plan of Treatment Not on filedocumented as of this encounter Visit Diagnoses Not on filedocumented in this encounter Care Teams Beater Head Relationship Specialty Start Date End Date Devin Britt DO PCP - General 04/18/05 09/04/11 [address] [place] [address] Damian Dowell MD PCP - Surgery 05/08/04 03/14/14 [facility] [address] [address] documented as of this encounter
--- OUTSIDE RECORDS SUMMARY | 2022-02-06 08:57 | XMS_ITS | Encounter Summary ---
:1970 Author Organization [place] Address [address] [place] [address] Care Team Providers Name Role Phone Devin Britt DO Primary Care Provider Damian Dowell MD Unavailable Reason for Referral - Closed Specialty Diagnoses / Procedures Referred By Contact Refer red To Contact Diagnoses Pain in joint, lower leg Elisabeth Dawkins, [place] Procedures RW PT BILLING [[id number]] [facility] System in [address] [address] Referral ID Status Reason Start Date Expiration Date Visits Requ ested Visits Authorized [id number] Closed 08/09/2005 04/13/2011 1 1 Reason for Visit Reason Comments PT Initial Visit right knee Encounter Details Date Type Department Care Team Description 08/09/[address] [facility] Elisabeth Dawkins, [place] PT Initial Visit Health/Nurse System in [facility] (right kn ee) Visit Physical Therapy Health System in [address] [place] [phone] [place], [place] [phone] Social History Tobacco Use Types Packs/Day Years Used Date Smoking Tobacco: Every Day Cigarettes 1 10 Alcohol Use Standard Drinks/Week Comments Yes 0 (1 standard drink = 0.6 oz pure alcoho l) Social Sex Assigned at Date Recorded Not on file documented as of this encounter Progress Notes Norm Dawkinsry - 08/09/2005 4:01 PM CDT PHYSICAL THERAPY INITIAL EVALUATION Patient Name: Aileen Sloan : 1970 SUBJECTIVE PRESENTATION AND ETIOLOGY Chief Complaint: Right knee pain, patellar popping and limited ability to perform activities of daily living and work activities. Onset / Etiology: DOS: 05/06/05 and DOI: 08/01/05 Patient is s/p arthroscopic partial medial meniscectomy. States she was doing well following surgery until 08/01/05. Patient reports stepping wrong and missing last step. Notes jarring right knee when landing with right foot turned outward. Pattern Since Onset: Worsened Symptom Pattern: None Character / Frequency / Intensity: Distal anterolateral and proximal anteromedial patellar pain and swelling. - Current 1010 LEVEL OF FUNCTION AT START OF CARE Patient-Specific Functional Scale - Current Aggravating Activities / Functional Limitation(s): Q1: Climbing Stairs. Q2: Squat/sit to stand. Q3: Prolonged sitting in car. Additional aggravating activities / functional limitation(s): climbing stairs at work, driving, sleeping, walking. Prior Functional Level: Functional limitations prior to onset of chief complaint: squatting fully Potential Home or Community Barriers: None Patient's selected goals for physical therapy: to feel better CURRENT / PREVIOUS INTERVENTION(S): Referring Provider: Willi Cardoso PA-C Date: 08/07/05 Recheck: Unknown MD Treatment: Referral to Physical Therapy and Prescribed medications for chief complaint: Anti-inflammatories - Taking as prescribed - Yes. Effective Unknown Pain Medication - Taking as prescribed - Yes. 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 Edema noted surrounding right patella. Static and Dynamic: Patellar alignment appears WFL in standing and with knee bends, mild lateral tilt of patella noted GAIT, LOCOMOTION, and BALANCE: Gait and Locomotion: Antalgic lacks knee flexion. Balance: Not Tested RANGE OF MOTION: Active: right knee extension WNL, flexion 95 degrees Passive: Not Tested Accessory Motion: crepitus noted with patella mobility. MUSCLE PERFORMANCE: Strength: Not Tested Flexibility: Not Tested SELF CARE AND HOME MANAGEMENT / COMMUNITY AND WORK INTEGRATION: Functional Testing / Observation: Not Tested Pain behaviors: decreased weight bearing on right SPECIAL TEST(S): Palpation: Reproduction of symptoms with palpation of proximal anteromedial and distal anterolateralpoles of patella. Joint Specific Special Tests: Not Tested Neural Provocation Tests: Not Tested Neurological Special Tests: ?? Myotome Testing: Not Tested Sensation Testing: Not Tested Deep Tendon Reflexes: Not Tested NEUROMOTOR DEVELOPMENT AND SENSORY INTEGRATION: WNL/WFL (Observed during evaluation) VENTILATION, RESPIRATION, AND CIRCULATION: WNL/WFL (At rest and with activity) Today's Treatment: Initial evaluation THERAPEUTIC PROCEDURES Neuromuscular Reeducation: 8 minutes Taping Techniques: Jonathan Curtis taping performed by Altaf Tang PT/ATC. Tape applied to decreased patellar tilt. Subjective decrease in pain with taping. Funcational improvement in stair climbing with taping. Instructed patient to keep tape in place as long as com fortable. Self Care / Home Management Trainin minutes Symptom Control: ice, elevation. Therapeutic Exercise: 5 minutes Reviewed, progressed, and/or modified patient's HEP / Self care program - issued written handout(s) Knee: PRE's / Strengthening: SLR: 10 rep Isometrics: quad set: 10 rep 5 sec hold Treatment Duration: 40 minutes. ASSESSMENT Physical Therapy Diagnosis: Impaired Joint Mobility, Motor Function, Muscle Performance, and ROM associated with Connective Tissue Dysfunction and Localized Inflammation Patient requires PT intervention for the following impairments: limited knowledge of condition and /or self care - inability to control symptoms, pain, decreased muscle strength and endurance and impaired gait Patient requires PT interventions for the following functional limitations: Decreased tolerance or inability to perform activities of daily living: stairs, squat, sit, walk, sleep. Decreased tolerance or inability to perform work activities: stairs. STG Completed within: 4 week(s). Patient will report a 65% improvement in symptoms. Demonstrates safe ambulation without substitution or gait deviation. Increased strength / endurance right quad5 / 5. LTG/Discharge Plan (Completed at discharge): Will perform all work duties without increased symptoms or limitation Will tolerate all functional activities without increased symptoms or limitations Independent with HEP and Self Care Rehab potential for achieving goals: good. PLAN: Patient will benefit from skilled physical therapy consisting of modalities to alleviate pain and / or edema and administer medication to decrease inflammation and control pain, gait training to facilitate: stair climbing with or without an assistive device, neuromuscular reeducation of: balance and taping techniques for sitting and / or standing activities, education in self care / home management training to include instruction in: joint protection principles and symptom control techniques and therapeutic exercise to develop: strength and endurance, range of motion, flexibility and joint stability Assessment will be ongoing with changes in treatment as indicated. Benefits/risks/alternatives to treatment have been reviewed and the patient has been instructed to contact this office if they have any questions or concerns. This plan of care has been discussed with the patient and the patient is in a greement. Frequency: Patient will be seen 1-2 times a week for 4 weeks. Elisabeth Dawkins, PT Referring Provider Certification: Referring Provider reviewing certifies that the above treatment/ plan of care is required and authorized, and that the patient's plan will be reviewed every thirty(30) days . DYE HOUSE SUPERVISOR PRESENT: NA MULTIDISCIPLINARY PATIENT / FAMILY EDUCATION RECORD Department: Physical Therapy Readiness to Learn: Ability to understand verbal instructions, Ability to understand written instructions, Knowledge of educational needs / treatment plan Specific Barriers to Learning: None Referrals: None Learning Needs: Rehabilitation techniques to improve functional independence Who: Patient How: Demonstration, Verbal instructions, Written instructions Response: Appropriate verbal response, Asked questions, Demonstrated ability, Verbalized recall / understanding documented in this encounter Plan of Treatment Not on filedocumented as of this encounter Procedures Procedure Name Priority Date/Time Associated Diagnosis Comme [facility] PT BILLING Routine 08/09/2005 3:35 PM CDT Joint Pain-Lower Leg documented in this encounter Visit Diagnoses Diagnosis Pain in joint, lower leg - Primary documented in this encounter Care Teams Manager Staffing Relationship Specialty Start Date End Date Devin Britt DO PCP - General 04/18/05 09/04/11 [address] [place] [address] Damian Dowell MD PCP - Surgery 05/08/04 03/14/14 [facility] [address] [address] documented as of this encounter
--- OUTSIDE RECORDS SUMMARY | 2022-02-06 08:57 | XMS_ITS | Encounter Summary ---
:1970 Author Organization [place] Address [address] [place] [address] Care Team Providers Name Role Phone Devin Britt DO Primary Care Provider Damian Dowell MD Unavailable Reason for Visit Reason Comments Colonoscopy Encounter Details Date Type Department Care Team Description 08/30/2005 Office Visit [facility] Damian Liviamichelle Noland, DO [address] [place] [address] CONTRACEPTIVE MANGMT NOS; System in [place] Room, Frw Scope FAMILY HX OSTEOPOROSIS; Hospital MYALGIA AND MYOSITIS NOS; [address] [place] [address] Social History Tobacco Use Types [...] Name Priority Date/Time Associated Diagnosis Comme nts [facility] COLONOSCOPY THRU Routine 08/30/2005 Contracept jocelyn Mangmt Nos STOMA, DIAGNOSTIC Family Hx Oste oporosis Myalgia And Myos itis Nos Diarrhea Nos documented in this encounter Results COLONOSCOPY (08/30/2005) Narrative This result has an attachment that is no t available. Devin Britt DO PROCEDURES Performing Organization Address City/State/ZIP Code Phon e Number [facility] documented in this encounter Visit Diagnoses Diagnosis Unspecified contraceptive management Family history of osteoporosis Myalgia and myositis, unspecified Mylagia and myositis, unspecified Diarrhea documented in this encounter Care Teams Pearl Diver Relationship Specialty Start Date End Date Devin Britt, PCP - General 04/18/05 09/04/11 [address] [place] [address] Damian Dowell MD PCP - Surgery 05/08/04 03/14/14 [facility] [address] [place] [address] documented as of this encounter
--- OUTSIDE RECORDS SUMMARY | 2022-02-06 08:57 | XMS_ITS | Encounter Summary ---
:1970 Author Organization [place] Address [address] [place] [address] Care Team Providers Name Role Phone Devin Britt DO Primary Care Provider Damian Dowell MD Unavailable Encounter Details Date Type Department Care Team Description 09/10/2005 Orders Only [facility] DI ARRHEA NOS (Primary Dx) - [place] in [place] [facility] [address] [place] [phone] Social History Tobacco Use Types Packs/Day Years Used Date Smoking Tobacco: Every Day Cigarettes 1 10 Alcohol Use Standard Drinks/Week Comments Yes 0 (1 standard drink = 0.6 oz pure alcoho l) Social Sex Assigned at Date Recorded Not on file documented as of this encounter Progress Notes Rashmi Gold - 09/20/2005 2:22 PM CDT Quick Note: Printed and sent Devin Britt DO - 09/20/2005 2:21 AM CDT Quick Note: Please call patient or send letter with normal results. documented in this encounter Plan of Treatment Not on filedocumented as of this encounter Procedures Procedure Name Priority Date/Time Associated Diagnosis Comme nts HCL GIARDIA STOOL Routine 09/10/2005 6:00 AM Diarrhea Nos Resu lts for this ANTIGEN CDT procedure are i n the results section. CULTURE FOR ENTERIC Routine 09/10/2005 6:00 AM Diarrhea Nos Re sults for this PATHOGENS CDT procedure are i n the results section. OVA AND PARASITES Routine 09/10/2005 6:00 AM Diarrhea Nos Resu lts for this CDT procedure are i n the results section. HCL ROTAVIRUS Routine 09/10/2005 6:00 AM Diarrhea Nos Results for this ANTIGEN CDT procedure are i n the results section. documented in this encounter Results GIARDIA ANTIGEN (09/10/2005 6:00 AM CDT) Component Value Ref Test Analysis Performed At [facility] gist Range Method Time Signature Specimen Feces [facility] Giardia Negative for Giardia lamblia specific antigen by immunoass ay. [facility] Antigen Test Negative for Cryptosporidium specific antigen by immunoa ssay. [facility] Report status FINAL [id number] [facility] Specimen Anatomical Collection Method Collection Time Receive d Time (Source) Location / / Volume Laterality 09/10/2005 6:00 AM 6 9:30 CDT AM CDT Devin Britt DO LABORATORY Performing Organization Address City/State/ZIP Code Phon e Number [facility] [address] [employer], EIA (09/10/2005 6:00 AM CDT) Analysis Performed At Patho logist Time Signature Rotavirus AGN Negative NEG [facility] Feces [facility] Specimen Anatomical Collection Method Collection Time Receive d Time (Source) Location / / Volume Laterality 09/10/2005 6:00 AM 6 9:30 CDT AM CDT Devin Britt DO LABORATORY Performing Organization Address City/State/ZIP Code Phon e Number [address] [address] [facility] OVA AND PARASITES (09/10/2005 6:00 AM CDT) Component Value Ref Test Analysis [facility]formed [facility] gist Range Method Time Signature Specimen Feces [facility] Description [facility] Parasite Specimen received in preservative [facility] Routine Routine parasitology exam negative [facility] Report status FINAL [id number] [facility] Specimen Anatomical Collection Method Collection Time Receive d Time (Source) Location / / Volume Laterality 09/10/2005 6:00 AM 6 9:30 CDT AM CDT Devin Britt DO LABORATORY Performing Organization Address City/State/ZIP Code Phon e Number [facility] [address] [place] [address] [facility] CULTURE FOR ENTERIC PATHOGENS (09/10/2005 6:00 AM CDT) Component Value Ref Test Analysis Performed At [facility] gist Range Method Time Signature Specimen Feces [facility] Culture Micro No Salmonella, [facility] Shigella, [facility] Campylobacter or E coli 0:157 isolated. Report status FINAL [id number] [facility] Specimen Anatomical Collection Method Collection Time Receive d Time (Source) Location / / Volume Laterality 09/10/2005 6:00 AM 6 9:30 CDT AM CDT Devin Britt DO LABORATORY Performing Organization Address City/State/ZIP Code Phon e Number [facility] [address] documented in this encounter Visit Diagnoses Diagnosis Diarrhea - Primary documented in this encounter Care Teams Appraisal Analyst Relationship Specialty Start Date End Date Devin Britt DO PCP - General 04/18/05 09/04/11 [address] [place] [address] Damian Dowell MD PCP - Surgery 05/08/04 03/14/14 [facility] [address] [place] [address] documented as of this encounter
--- OUTSIDE RECORDS SUMMARY | 2022-02-06 08:57 | XMS_ITS | Encounter Summary ---
:1970 Author Organization [place] Address [address] [place] [address] Care Team Providers Name Role Phone Devin Britt DO Primary Care Provider Damian Dowell MD Unavailable Reason for Visit Reason Onset Date Comments Refill Request 04/25/2005 Vicodin Encounter Details Date Type Department Care Team Description 04/25/2005 Refill [facility] Devin Britt, Re fill Request (Vicodin) System - [place] in [facility] [address] [place] [address] [address] [facility] [place] [address] [phone] Social History Tobacco Use Types Packs/Day Years Used Date Smoking Tobacco: Every Day Cigarettes 1 10 Alcohol Use Standard Drinks/Week Comments Yes 0 (1 standard drink = 0.6 oz pure alcoho l) Social Sex Assigned at Date Recorded Not on file documented as of this encounter Miscellaneous Notes Telephone Encounter - Marialuisa Chavis - 04/25/2005 9:31 AM CST 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 Has kya't. today for PE & pre-op. Is having surgery 05-06-05 for a torn meniscus with Dr. Key. Please approve Vicodin. 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 Last refill 04-18-05 #30. ETICS TEACHER documented in this encounter Plan of Treatment Not on filedocumented as of this encounter Visit Diagnoses Not on filedocumented in this encounter Care Teams Shade Bander Relationship Specialty Start Date End Date Devin Britt DO PCP - General 04/18/05 09/04/11 [address] [place] [address] Damian Dowell MD PCP - Surgery 05/08/04 03/14/14 [facility] [address] [place] [address] documented as of this encounter
--- OUTSIDE RECORDS SUMMARY | 2022-02-06 08:57 | XMS_ITS | Encounter Summary ---
:1970 Author Organization [place] Address [address] [place] [address] Care Team Providers Name Role Phone Devin Britt DO Primary Care Provider Damian Dowell MD Unavailable Reason for Visit Reason Onset Date Comments Refill Request 05/29/2005 ricardo Encounter Details Date Type Department Care Team Description 05/29/2005 Refill [facility] [place] Goran Price Refill Request (ricardo) in [facility] [address] [place] [phone] Social History Tobacco Use Types Packs/Day Years Used Date Smoking Tobacco: Every Day Cigarettes 1 10 Alcohol Use Standard Drinks/Week Comments Yes 0 (1 standard drink = 0.6 oz pure alcoho l) Social Sex Assigned at Date Recorded Not on file documented as of this encounter Miscellaneous Notes Telephone Encounter - Bernardino eKy MD - 05/30/2005 5:42 PM CST DONE rr CONDITIONING WORKER Telephone Encounter - Maral Price - 05/29/2005 2:08 PM CST Accepting this Rx will FAX it directly to the pharmacy. CONDITIONING WORKER documented in this encounter Plan of Treatment Not on filedocumented as of this encounter Visit Diagnoses Not on filedocumented in this encounter Care Teams Registered Nurse Supervisor Relationship Specialty Start Date End Date Devin Britt DO PCP - General 04/18/05 09/04/11 [address] [place] [address] Damian Dowell MD PCP - Surgery 05/08/04 03/14/14 [facility] [address] [place] [address] documented as of this encounter
--- OUTSIDE RECORDS SUMMARY | 2022-02-06 08:57 | XMS_ITS | Encounter Summary ---
:1970 Author Organization [facility] Address [address] [place] [address] Care Team Providers Name Role Phone Devin Britt DO Primary Care Provider Damian Dowell MD Unavailable Reason for Referral Specialty Diagnoses / Procedures Referred By Contact Refer red To Contact Willi Cardoso PA-C XXX XXX [address] [place] [address] Fax: Referral ID Status Reason Start Date Expiration Date Visits Requ ested Visits Authorized Reason for Visit Reason Comments Pain right knee Encounter Details Date Type Department Care Team Description 08/07/2005 Office Visit [facility] Willi Cardoso PA-C JOINT PAIN-LOWER LEG System in [place] XXX XXX (Primary Dx) Orthopedics [address] [place] [address] [place], [place] [address] [phone] Social History Tobacco Use Types Packs/Day Years Used Date Smoking Tobacco: Every Day Cigarettes 1 10 Alcohol Use Standard Drinks/Week Comments Yes 0 (1 standard drink = 0.6 oz pure alcoho l) Social Sex Assigned at Date Recorded Not on file documented as of this encounter Progress Notes Patricia Merida - 08/20/2005 9:47 AM CDT Addended by: REYNALDO MILLER on: 08/20/2005 9:47:16 AM Modules accepted: Orders Willi Cardoso PA - 08/14/2005 7:51 AM CDT CLINIC ENCOUNTER Mr. Sloan is a pleasant 35-year-old female who presents today for evaluation of some right-sided knee pain. Six days ago she was walking in her house with some objects in her arm when she missed a step. She did not actually sustain a fall but she did have substantial pain in her knee. She is about three months status post a partial medial meniscectomy in her right knee, this performed by Dr. Key, and she had really been doing quite well up until this point. She was seen in Urgent Care where they did take x-rays and she has been weight bearing but still having some pain. She locates it both to the anterior lateral and more medial portion of her knee. Stairs bother her substantially but also having her knee in a flexed position for sometime cause her pain as well. The pain is described as being relatively sharp. There is no constant underlying ache. There is no associated dysesthesia and she denies any mechanical symptoms such as clicking or catching. On examination, she does have a small effusion about the knee. She does have some patellofemoral apprehension and there is a reproducible click of the patella when passively flexing and extending the knee. Sam maneuver is not truly positive. It does cause her a small amount of discomfort. Valgus and varus stressing produce no laxity but do provide the patient some discomfort. David maneuver is negative. And the patient does have pretty substantial joint line tenderness, medial being slightly greater than lateral. She is able to perform a straight leg raise without any complication. X-rays that were taken previously in Urgent Care by Dr. Erwin were reviewed by myself today and I did not find any evidence of any acute pathology and her patella appears to have reasonably normal tilt with well-maintained joint spaces. To my findings, there is a small amount of medial compartment narrowing but this certainly could just be the angle of the x-ray as well. ASSESSMENT \ PLAN: Bxvrfi-pca-culz-old female with right-sided knee pain who is three months status post a partial medial meniscectomy of this knee, this performed by Dr. Key. The patient was doing well until six days ago in which she sustained an injury to her knee. While it certainly may be possible that she has again sustained some injury to either her lateral or medial meniscus, or possibly both, I do feel at this point in time that it would be more appropriate to send Ms. Sloan to some physical therapy to work on some further conditioning and strengthening of this knee to address any patellofemoral issues that may exist. I do think that some of her discomfort may still be coming from postoperative inflammation so she was told to continue taking her Naprosyn b.i.d. and icing and elevating it whenever possible. She was given a prescription for Ultracet to be used very sparingly for pain during the daytime. She was advised not to operate a motor vehicle while using this and she was understanding the importance of doing so. Most importantly, she was given a consultation to physical therapy for vastus medialis strengthening and possible instruction on Wesley taping. If the patient has any questions or concerns, she was encouraged to call at any point in time. Otherwise, she was told to follow up with Dr. Key in about one month's time to ensure that things are progressing satisfactorily and for repeat examination. While I think an MRI scan maybe in her future, I certainly will leave that at the discretion of Dr. Key as to whether or not to obtain one. The patient was most understandable and agreeable to this course of action. Twenty to twenty five minutes was spent with the patient today, of which greater than half of that time was spent in counseling and educating the patient about her conditions that are causing her discomfort and what her treatment options currently are as well as what they may be in the future. Unfortunately there was no one available today for consultation. MAGALY Gregory/osito cc: documented in this encounter Nursing Notes 08/07/2005 1:00 PM CDT >> WOLF KIMBALL (ALICIA) 08/07/2005 1:09 pm Right knee pain, fell down stairs 08/01/05. Pain lateral and medial to the patela, describes pain asa hot burning metal. documented in this encounter Plan of Treatment Pending Results Name Type Priority Associated Diagnoses Date/Ti me CONSULT TO PHYS. THERAPY () Referral Routine 08/07/2005 documented as of this encounter Procedures Procedure Name Priority Date/Time Associated Diagnosis Comme nts ZZ PHYSICAL THERAPY (RW/ZU) Routine 08/07/2005 REFERRAL documented in this encounter Visit Diagnoses Diagnosis Pain in joint, lower leg - Primary documented in this encounter Care Teams Waste Water Plant Operator Relationship Specialty Start Date End Date Devin Britt DO PCP - General 04/18/05 09/04/11 [address] [place] [address] Damian Dowell MD PCP - Surgery 05/08/04 03/14/14 [facility] [address] [place] [address] documented as of this encounter
--- OUTSIDE RECORDS SUMMARY | 2022-02-06 08:57 | XMS_ITS | Encounter Summary ---
:1970 Author Organization [facility] Address [address] [place] [address] Care Team Providers Name Role Phone Devin Britt DO Primary Care Provider Damian Dowell MD Unavailable Reason for Visit Reason Onset Date Comments Medication Request 05/07/2005 post-op pain. Encounter Details Date Type Department Care Team Description 05/07/[address] [facility] Bernardino Key, [facility] Request System in Willem Ramírez MD (post-op pain.) Orthopedics RETIRED [address] [place] [phone] Social History Tobacco Use Types Packs/Day Years Used Date Smoking Tobacco: Every Day Cigarettes 1 10 Alcohol Use Standard Drinks/Week Comments Yes 0 (1 standard drink = 0.6 oz pure alcoho l) Social Sex Assigned at Date Recorded Not on file documented as of this encounter Miscellaneous Notes Telephone Encounter - Eufemia Day) - 05/07/2005 5:01 PM CST pt. called, experiencing post-op pain. Spoke to nursing supervisor refractory products who advised pt. loosen drsg, ice elevate and take 800mg Advil TID. Dr. key will attempt calling pt. later this evening. Four attempts made to contact pt. No answer. NTO DEVELOPER documented in this encounter Plan of Treatment Not on filedocumented as of this encounter Visit Diagnoses Not on filedocumented in this encounter Care Teams It Web Development Consultant Relationship Specialty Start Date End Date Devin Britt DO PCP - General 04/18/05 09/04/11 [address] [place] [address] Damian Dowell MD PCP - Surgery 05/08/04 03/14/14 [facility] [address] [place] [address] documented as of this encounter
--- OUTSIDE RECORDS SUMMARY | 2022-02-06 08:57 | XMS_ITS | Encounter Summary ---
:1970 Author Organization [facility] Address [address] [place] [address] Care Team Providers Name Role Phone Devin Britt DO Primary Care Provider Damian Dowell MD Unavailable Reason for Visit Reason Comments Imm/Inj Depo-Provera injection Encounter Details Date Type Department Care Team Description 11/25/2005 Allied Health/Nurse [facility] Im m/Inj (Depo-Provera Visit System - [place] in injecti on) [facility] [address] [place] [address] Social History Tobacco Use Types Packs/Day Years Used Date Smoking Tobacco: Every Day Cigarettes 1 10 Alcohol Use Standard Drinks/Week Comments Yes 0 (1 standard drink = 0.6 oz pure alcoho l) Social Sex Assigned at Date Recorded Not on file documented as of this encounter Nursing Notes 11/25/2005 3:30 PM CDT >> MARIANNE MEDINA 11/25/2005 3:44 pm 91 days since last injection. PAP NIL 04/25/2005 documented in this encounter Plan of Treatment Not on filedocumented as of this encounter Visit Diagnoses Diagnosis Unspecified contraceptive management - P rimary documented in this encounter Care Teams Melt House Drag Operator Relationship Specialty Start Date End Date Devin Britt DO PCP - General 04/18/05 09/04/[address] [place] [address] Damian Dowell MD PCP - Surgery 05/08/04 03/14/[address] [address] documented as of this encounter
--- OUTSIDE RECORDS SUMMARY | 2022-02-06 08:57 | XMS_ITS | Encounter Summary ---
:1970 Author Organization [facility] Address [address] [place] [address] Care Team Providers Name Role Phone Urvashi Mccabe MD Primary Care Provider Damian Dowell MD Unavailable Reason for Referral - Closed Specialty Diagnoses / Procedures Referred By Contact Refer red To Contact Diagnoses Backache, unspecified Zz Rw Phy Therapy Procedures RW PT BILLING [[id number]] [place] [address] Referral ID Status Reason Start Date Expiration Date Visits Requ ested Visits Authorized [id number] Closed 01/23/2005 04/13/2011 1 1 Reason for Visit Reason Comments PT Discharge Summary lumbar Encounter Details Date Type Department Care Team Description 01/23/2005 [facility] Janessa Day PT Dis charge Summary Health/Nurse System in [place] Sherry PT (lumbar) Visit Physical Therapy [address] in [facility] [phone] [place] [address] [place] [address] Social History Tobacco Use Types Packs/Day Years Used Date Smoking Tobacco: Every Day Cigarettes 1 10 L ast attempted to quit: 04/02/2004 Alcohol Use Standard Drinks/Week Comments Yes 0 (1 standard drink = 0.6 oz pure alcoho l) Social Sex Assigned at Date Recorded Not on file documented as of this encounter Progress Notes Janessa Day - 01/23/2005 1:07 PM CDT Summation of Episode of Care Physical Therapy Patient Name: Aileen Sloan : 1970 Dates of Service: 11/05/04 Number of Visits: 1 Referred By: Urvashi Lowery M.D. Current Physical/Functional Status: unknown % improvement per patient report Degree of Anticipated Goals and Expected Outcomes Achieved: unknown STG met. Unknown Criteria for Discharge: Patient/client, caregiver, or legal guardian declined to continue intervention. Discharge Plan: Home program Equipment provided: lumbar roll. Patient received at initial visit and then did no follow-up with further scheduled PT appts. Therapist:Janessa Day, PT Date: 01/23/2005 documented in this encounter Plan of Treatment Not on filedocumented as of this encounter Procedures Procedure Name Priority Date/Time Associated Diagnosis Comme nts RW PT BILLING Routine 01/23/2005 1:09 PM CDT Backache Nos documented in this encounter Visit Diagnoses Diagnosis Backache, unspecified - Primary documented in this encounter Care Teams Care Tech Relationship Specialty Start Date End Date Urvashi Mccabe MD PCP - General 11/07/04 04/17/[address] [place] [address] Damian Dowell MD PCP - Surgery 05/08/04 03/14/14 [facility] [address] [place] [address] documented as of this encounter
--- OUTSIDE RECORDS SUMMARY | 2022-02-06 08:57 | XMS_ITS | Encounter Summary ---
:1970 Author Organization [facility] Address [address] [place] [address] Care Team Providers Name Role Phone Devin Britt DO Primary Care Provider Damian Dowell MD Unavailable Reason for Referral - Closed Specialty Diagnoses / Procedures Referred By Contact Refer red To Contact Diagnoses Pain in joint, lower leg Elisabeth Dawkins, [place] Procedures RW PT BILLING [[id number]] [facility] in [address] [address] Referral ID Status Reason Start Date Expiration Date Visits Requ ested Visits Authorized [id number] Closed 08/19/2005 04/13/2011 1 1 Reason for Visit Reason Comments PT Daily Visit knee Encounter Details Date Type Department Care Team Description 08/19/2005 [facility] Elisabeth Dawkins, [place] PT Daily Visit (knee) Health/Nurse System in [facility] Visit Physical Therapy Health System in [address] [place] [phone] [place], [place] [phone] Social History Tobacco Use Types Packs/Day Years Used Date Smoking Tobacco: Every Day Cigarettes 1 10 Alcohol Use Standard Drinks/Week Comments Yes 0 (1 standard drink = 0.6 oz pure alcoho l) Social Sex Assigned at Date Recorded Not on file documented as of this encounter Progress Notes Elisabeth Dawkins - 08/19/2005 9:53 AM CDT PHYSICAL THERAPY DAILY VISIT NOTES SUBJECTIVE: Since the last visit, the patient reports no change in symptoms. Patient reports a pain level of 8/10 today. Patient's chief complaints today are of right knee pain and popping at patella. Patient reports limited functional ability to: climb stair, squat and sit prolonged. Patient reports taping was helpful at last visit. OBJECTIVE: RANGE OF MOTION: crepitus noted at patella with knee flexion TREATMENT TODAY CONSISTED OF: THERAPEUTIC PROCEDURES Neuromuscular Reeducation: 12 minutes Taping Techniques: Instructed patient in performing Wesley tapine to right knee. Applied tape from lateral to medial to improve tilt of patella. Patient reported decreased pain with gait and stairs with taping. Patient voiced understanding of how to perform taping. Issued cover tape and leuko tape to be used at home. Therapeutic Exercise: 12 minutes Reviewed, progressed, and/or modified patient's HEP / Self care program - issued written handout(s) Knee: PRE's / Strengthening: SLR: 10 rep Isometrics: quad set: 10 rep 5 sec hold SAQ: 10 rep Stationary bike: 3 minutes @ 120 RPM. ASSESSMENT: Post treatment response: Subjective report of pain and clicking at knee cap post treatment. Progress summary: Patient requires continued skilled physical therapy to improve: quad strength, painfree ROM and pain. PLAN: Continue with prescribed treatment and progress as tolerated. Focus next session will be on: pain relief, range of motion and strength of involved joint(s) Treatment Time: 24 Minutes Batch Mixer Present: KAMERON Therapist: Elisabeth Dawkins PT documented in this encounter Plan of Treatment Not on filedocumented as of this encounter Procedures Procedure Name Priority Date/Time Associated Diagnosis Comme nts RW PT BILLING Routine 08/19/2005 9:53 AM CDT Joint Pain-Lower Leg documented in this encounter Visit Diagnoses Diagnosis Pain in joint, lower leg - Primary documented in this encounter Care Teams Hadoop Engineer Relationship Specialty Start Date End Date Prodzinski, Devin D, DO PCP - General 04/18/05 09/04/11 [address] [place] [address] Damian Dowell MD PCP - Surgery 05/08/04 03/14/[address] [address] documented as of this encounter
--- OUTSIDE RECORDS SUMMARY | 2022-02-06 08:57 | XMS_ITS | Encounter Summary ---
:1970 Author Organization [facility] Address [facility] [place] [address] Care Team Providers Name Role Phone Urvashi Mccabe MD Primary Care Provider Edwin Rangel MD Primary Care Provider Damian Dowell MD Unavailable Encounter Details Date Type Department Care Team Description 11/05/2004 Results Only [facility] Buddy Snyder MD [facility] MEDICAL Results [facility] [address] [place] [id number] (Wo rk) Social History Tobacco Use Types [...] Name Priority Date/Time Associated Diagnosis Comme nts C MRI BREAST BOTHS Routine 11/05/2004 3:30 PM Res ults for this CDT procedure are i n the results section. documented in this encounter Results MRI BREAST BOTHS (11/05/2004 3:30 PM CDT) Anatomical Region Laterality Modality Other Specimen (Source) Anatomical Collection Method Collection Time Re ceived Time Location / / Volume Laterality 11/05/2004 3:30 PM CDT Impressions 11/15/2004 5:09 PM CDT Exam: Bilateral breast MRI for implant e valuation History: Fevers off and on, now to [facility] k implant integrity Technique: Axial, sagittal and coronal T 2 Findings: 3 keyhole signs are present on the right best seen on coronal imaging suggestive of minimally collapsed or non collapsed intracapsular rupture. There is no evide nce of extracapsular rupture. The left implant appears intact. Impression: Findings suggestive of minim ally collapsed or non collapsed intracapsular rupture on the r ight. Recommendation: Clinical follow-up. Chung Snyder MD SPECIAL IMAGING STUDIES documented in this encounter Visit Diagnoses Not on filedocumented in this encounter Care Teams Chief Librarian Extension Department Relationship Specialty Start Date End Date Urvashi Mccabe MD PCP - General 11/07/04 04/17/[address] [place] [address] Edwin Rangel MD PCP - General 05/08/04 11/06/[address] [address] Damian Dowell MD PCP - Surgery 05/08/04 03/14/14 [facility] [address] [place] [address] documented as of this encounter
--- OUTSIDE RECORDS SUMMARY | 2022-02-06 08:57 | XMS_ITS | Encounter Summary ---
:1970 Author Organization [facility] Address [address] [place] [address] Care Team Providers Name Role Phone Devin Britt DO Primary Care Provider Damian Dowell MD Unavailable Reason for Referral - Closed Specialty Diagnoses / Procedures Referred By Contact Refer red To Contact Diagnoses Diarrhea Devin Britt DO [address] [place] [address] Referral ID Status Reason Start Date Expiration Date Visits Requ ested Visits Authorized [id number] Closed 09/05/2005 04/13/2011 1 1 Reason for Visit Reason Onset Date Comments Abdominal Pain 09/04/2005 continuing stomach p ains--please see note Encounter Details Date Type Department Care Team Description 09/04/2005 Telephone [facility] Devin Britt Abdom inal Pain System - Willem Chang DO (continuing stomach [facility] [address] pains--please see note) Practice [place], [place] [address] [address] [place], [place] [phone] (Work) [phone] Social History Tobacco Use Types Packs/Day Years Used Date Smoking Tobacco: Every Day Cigarettes 1 10 Alcohol Use Standard Drinks/Week Comments Yes 0 (1 standard drink = 0.6 oz pure alcoho l) Social Sex Assigned at Date Recorded Not on file documented as of this encounter Miscellaneous Notes Telephone Encounter - Marialuisa Chavis - 09/06/2005 4:29 PM CDT Semaj't made 09-26-[address] Jimenez. Pt. Notified. Stool sample containers picked up. Telephone Encounter - Marialuisa Chavis - 09/05/2005 2:02 PM CDT Pt. called. LMTC. Telephone Encounter - Devin Britt DO - 09/05/2005 10:14 AM CDT Pt should see Dr. Jimenez, appt ordered. Also ordered stool cultures. Pt will need to cook pickled meat stool test supplies. Telephone Encounter - Rashmi Gold - 09/04/2005 2:45 PM CDT Aileen was in recently for persistant diarrhea. She did have a colonoscopy done on Friday and they took some biopsies which look pretty normal. She is still hving this diarrhea and horrid stomach pains, especially after eating. She is taking the med you gave her twice daily, but it doesn't seem to be doing any good at all. She is wondering what she should do now. Please advise, nurse to call back at above number. Thank You! documented in this encounter Plan of Treatment Not on filedocumented as of this encounter Visit Diagnoses Diagnosis Diarrhea - Primary documented in this encounter Care Teams Commissary Officer Relationship Specialty Start Date End Date Devin Britt DO PCP - General 04/18/05 09/04/11 [address] [place] [address] Damian Dowell MD PCP - Surgery 05/08/04 03/14/[address] [address] documented as of this encounter
--- OUTSIDE RECORDS SUMMARY | 2022-02-06 08:57 | XMS_ITS | Encounter Summary ---
:1970 Author Organization [facility] Address [address] [place] [address] Care Team Providers Name Role Phone Devin Britt DO Primary Care Provider Damian Dowell MD Unavailable Reason for Visit Reason Comments Imm/Inj Depo-per orders and 2nd nega tive ICON Encounter Details Date Type Department Care Team Description 06/03/2005 Allied Health/Nurse [facility] Im m/Inj (Depo-per Visit System - [place] in orders and 2nd negative [facility] ... [facility] [address] [place] [phone] Social History Tobacco Use Types Packs/Day [...] Name Priority Date/Time Associated Diagnosis Comme nts ZZCL AFF HCG, QUAL Routine 06/03/2005 1:37 PM Contraceptive Ma ngmt Results for this URINE BRAKE DRUM MOLDER Nos procedure are i n the results section. documented in this encounter Results HCG, QUAL URINE (06/03/2005 1:37 PM BRAKE DRUM MOLDER) P athologist Signature HCG Qual Urine Negative [facility] Specimen Anatomical Collection Method Collection Time Receive d Time (Source) Location / / Volume Laterality 06/03/2005 1:37 PM 1:44 BRAKE DRUM MOLDER PM BRAKE DRUM MOLDER Devin Britt DO LABORATORY Performing Organization Address City/State/ZIP Code Phon e Number [facility] documented in this encounter Visit Diagnoses Diagnosis Unspecified contraceptive management - P rimary documented in this encounter Care Teams Pillar Man Relationship Specialty Start Date End Date Devin Britt DO PCP - General 04/18/05 09/04/11 [address] [place] [address] Damian Dowell MD PCP - Surgery 05/08/04 03/14/14 [facility] [address] [place] [address] documented as of this encounter
--- OUTSIDE RECORDS SUMMARY | 2022-02-06 08:57 | XMS_ITS | Encounter Summary ---
:1970 Author Organization [place] Address [address] [place] [address] Care Team Providers Name Role Phone Urvashi Mccabe MD Primary Care Provider Damian Dowell MD Unavailable Reason for Visit Reason Comments RECHECK recheck back Encounter Details Date Type Department Care Team Description 11/07/2004 Office Visit [facility] [place], BACKACHE NOS (Primary System in [place] MD Urvashi Dx) Internal Medicine [facility] [address] [facility] [address] [place], [place] [address] [address] [place], [place] [phone] [address] Social History Tobacco Use Types Packs/Day Years [...] Sign Reading Time Taken Comments Blood Pressure 132/78 11/07/2004 3:00 PM CDT Pulse 80 11/07/2004 3:00 PM CDT Temperature 37.2 ??C (98.9 ??F) 11/07/2004 3:00 PM CDT Respiratory Rate - - Oxygen Saturation - - Inhaled Oxygen Concentration - - Weight 85.3 kg (188 lb) 11/07/2004 3:00 PM CDT Height - - Body Mass Index 30.12 10/22/2004 3:00 PM CDT documented in this encounter Progress Notes Urvashi Lowery MD - 11/07/2004 4:32 PM CDT PLEASE INSERT COMPUTER ENGINEERING PROFESSOR HERE. Discussion time 15min-discussed pain management. Urvashi Lowery MD - 11/07/2004 3:00 PM CDT CLINIC ENCOUNTER Aileen is a 34-year-old who is here for a recheck of her back. She says her back is still about the same. It has really not changed in terms of pain. 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 When I mentioned to her that that it not what my intentions were when I told her she should do light duty, the patient says that she needs to work. She has been working and taking the pain medication to help her work through her schedule. She says chiropractic treatment did not help her, in fact, it made the pain worse, and so she quit doing that for some time. She is going to physiotherapy. She says that the first session was very helpful and did control the pain so she is looking forward to the next session. She said that she did go through the Percodan very rapidly because she took the pain medication and continued to do housework to keep up with her income and she thinks that is part of why she used up the pain medications. She says that she was aware of when to use them and did not mix it with alcohol but just used predominantly during the night as she could not sleep. She was taking two at a time and hence did go out of it fast. On examination, the patient is resting comfortably. No physical examination was done today. Recommendation: I told the patient that she needs to follow-up for physiotherapy and we could use other non-narcotic pain medications without an addiction potential for pain control. I told her I would set up a two month time limit before which we should be completely off pain medications and only using non-steroidals. I told her she should use the Ultram on a scheduled manner during the day for effective pain control and use Percodan only for pain that is not controlled when used in a scheduled manner beyond Ultram and if she has trouble at night sleeping. I also told her she should use one tablet rather than two tablets at the time. With physiotherapy and non-steroidals, we should be able to control most of the pain with narcotics for breakthrough pain, and if that cannot be accomplished, then she probably would be dependent on pain medications and I would have to refer her to the Pain Clinic for management. The patient expresses understanding. Urvashi Lowery M.D. SS/sarahy cc: documented in this encounter Plan of Treatment Not on filedocumented as of this encounter Visit Diagnoses Diagnosis Backache, unspecified - Primary documented in this encounter Care Teams Lien Searcher Relationship Specialty Start Date End Date Urvashi Mccabe MD PCP - General 11/07/04 04/17/05 [facility] [address] [place] [address] [address] [place] [address] Damian Dowell MD PCP - Surgery 05/08/04 03/14/14 [facility] [address] [place] [address] documented as of this encounter
--- OUTSIDE RECORDS SUMMARY | 2022-02-06 08:57 | XMS_ITS | Encounter Summary ---
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 Reason for Visit Reason Comments Knee Pain Pain - twisted it 04-11-05 Encounter Details Date Type Department Care Team Description 04/18/2005 Office Visit [facility] Devin Britt JOINT PAIN-LOWER LEG System - [place] yonis Chang DO (Primary Dx) [facility] [address] [place], [place] [address] [facility] [address] [place], [place] [phone] (Work) [phone] Social History Tobacco Use Types Packs/Day Years [...] Sign Reading Time Taken Comments Blood Pressure 112/62 04/18/2005 10:30 AM HAZMAT TRUCK DRIVER Pulse 72 04/18/2005 10:30 AM HAZMAT TRUCK DRIVER Temperature 37.2 ??C (99 ??F) 04/18/2005 10:30 AM HAZMAT TRUCK DRIVER Respiratory Rate - - Oxygen Saturation - - Inhaled Oxygen Concentration - - Weight 83.1 kg (183 lb 4 oz) 04/18/2005 10:30 AM HAZMAT TRUCK DRIVER Height - - Body Mass Index 29.35 10/22/2004 3:00 PM CDT documented in this encounter Progress Notes Devin Britt DO - 04/18/2005 10:30 AM CSTCLINIC ENCOUNTER SUBJECTIVE: The patient is here today with the complaint of knee pain. She twisted her knee sometime about a week ago on the right knee. She states that she has continued to have knee pain in the lateral and medial knee area. She denies any fever, chills, shortness of breath, wheezes or other complaints. OBJECTIVE: The patient is nontoxic, well hydrated. Palpation of the knee - reveals point tenderness at the medial and lateral joint line. Range of motion decreased about 20 to 30% due to discomfort in flexion. Full extension also causes discomfort. There is some mild apprehension with movement of the patella. Neurovascular is otherwise intact in the lower extremities. ASSESSMENT: 1. Internal derangement of the knee. PLAN: 1. I will do an MRI of the knee at this point. I suspect internal derangement and a consult with Orthopedics shortly thereafter. 2. In the meantime, pain medication per Paulina. Ludmila Sherman/dick cc: AT TRUCK DRIVER documented in this encounter Plan of Treatment Not on filedocumented as of this encounter Visit Diagnoses Diagnosis Pain in joint, lower leg - Primary documented in this encounter Care Teams Agency Legal Counsel Relationship Specialty Start Date End Date Devin Britt DO PCP - General 04/18/05 09/04/11 [address] [place] [address] Damian Dowell MD PCP - Surgery 05/08/04 03/14/14 [facility] [address] [address] documented as of this encounter
--- OUTSIDE RECORDS SUMMARY | 2022-02-06 08:57 | XMS_ITS | Encounter Summary ---
:1970 Author Organization [place] Address [address] [place] [address] Care Team Providers Name Role Phone Devin Britt DO Primary Care Provider Damian Dowell MD Unavailable Reason for Visit Reason Comments Knee Pain right knee recheck / MRI cecilia barnett on 04/19/05 Encounter Details Date Type Department Care Team Description 04/24/2005 Office Visit [facility] Bernardino Key ME D MENISC System - [place] in [place] KNEE-CURRENT (Primary [facility] RETIRED Dx) [address] [place] [phone] Social History Tobacco Use Types Packs/Day Years Used Date Smoking Tobacco: Every Day Cigarettes 1 10 L ast attempted to quit: 04/02/2004 Alcohol Use Standard Drinks/Week Comments Yes 0 (1 standard drink = 0.6 oz pure alcoho l) Social Sex Assigned at Date Recorded Not on file documented as of this encounter Progress Notes Bernardino Key MD - 04/24/2005 9:30 AM CSTCLINIC ENCOUNTER Aileen is a 34-year-old lady who presents with about a 2-week history of pain in the right knee. The location is in the posteromedial corner. It feels somewhat unstable as if it is going to pop or catch or give out. 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 However, it has gotten so that she has pain almost all the time and she is limping severely without much improvement despite the use of ibuprofen. 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 On exam, forced flexion and a Sma's maneuver are very uncomfortable. She is tender at the medial joint line posteromedially. She also has some patellofemoral crepitation and mild compression pain. I find no ligament instability in any planes, so I think her main problem is the medial meniscus tear and her secondary problem is patellofemoral disease. I have recommended that she consider arthroscopy and she is very much interested in proceeding with this. Our approach will be to scope the right knee, proceed with a probable partial medial meniscectomy and assess the patellofemoral joint, perhaps for debridement or perhaps a lateral release depending on the findings. I have told her that she would probably be unable to work for 2 or 3 weeks postoperatively and she understands that, and we will plan on seeing Aileen the day of the surgery. Bernardino Key M.D. DIGNA/osito cc: AL ASSAULT COUNSELOR documented in this encounter Plan of Treatment Not on filedocumented as of this encounter Visit Diagnoses Diagnosis Tear of medial cartilage or meniscus of knee, current - Primary documented in this encounter Care Teams Seam Rubber Relationship Specialty Start Date End Date Devin Britt DO PCP - General 04/18/05 09/04/11 [address] [place] [address] Damian Dowell MD PCP - Surgery 05/08/04 03/14/14 [facility] [address] [place] [address] documented as of this encounter
--- OUTSIDE RECORDS SUMMARY | 2022-02-06 08:57 | XMS_ITS | Encounter Summary ---
:1970 Author Organization [place] Address [address] [place] [address] Care Team Providers Name Role Phone Devin Britt DO Primary Care Provider Damian Dowell MD Unavailable Collin Singh MD Unavailable Unavailable Reason for Visit Reason Comments Pain right knee pain Encounter Details Date Type Department Care Team Description 10/31/2005 Office Visit [facility] Willi Cardoso PA-C INT DERANGEMENT KNEE System in [employer] XXX XXX (Primary Dx) Orthopedics [address] [facility] [address] [place] [address] [place], [place] [phone] [phone] Social History Tobacco Use Types Packs/Day Years Used Date Smoking Tobacco: Every Day Cigarettes 1 10 Alcohol Use Standard Drinks/Week Comments Yes 0 (1 standard drink = 0.6 oz pure alcoho l) Social Sex Assigned at Date Recorded Not on file documented as of this encounter Progress Notes Willi Cardoso PA - 11/04/2005 2:53 PM CDT CLINIC ENCOUNTER Ms. Sloan is a pleasant 35-year-old female who presents today for a repeat evaluation of her right knee pain. She states it is getting a fair amount worse. She still locates it at the anterior portion of her knee but there is also an area that is burning that is superior and lateral to the knee joint line, more about the distal portion of the vastus lateralis muscle. She admittedly does suffer from fibromyalgia as well. She has been to physical therapy twice after our first visit. She states she has been working hard on her exercises but has not noticed much in the way of improvement. She is a smoker and approximately six months ago she did have a right knee arthroscopy performed by Dr. Key and at that time was found to have some grade 1 chondromalacia patella as well as slight lateral tilt. He did not perform a lateral release. He did do a partial medial meniscectomy and he also removed some hypertrophic synovial tissue. There was no mention of any type of plica. On examination, she does have a fair amount of patellofemoral apprehension as well as crepitans and palpable and reproducible clunking sensation when taking her knee through various flexion extension movements. Sam maneuver is negative. She has no ligamentous instability appreciated on today's exam. She does have diffuse but fairly substantial joint line tenderness both the medial and lateral aspects of her knee. She has very mild amount of trochanteric tenderness but this is equal bilaterally. The remainder of the knee examination is rather benign. ASSESSMENT \ PLAN: Onxvvo-gfd-dttf-old female with continued right-sided knee pain that has been ongoing for quite some time. She is status post a right knee partial medial meniscectomy performed by Dr. Key. At this point in time, I get the impression that the patient's discomfort is still patellofemoral in nature as it hurts her primarily when her knee is in any type of flexion and is located primarily to the anterior portion of her knee. Various treatment options were discussed with her and at today's visit I was very adamant that I feel as if though physical therapy is going to be the best long-term solution for her, so she was strongly encouraged to perform her exercises on a regular basis. She states she is familiar with these and does not need a refresher session. She also was counseled briefly as to the benefits of smoking cessation. After discussion of her other treatment options, it was felt most appropriate to go ahead today with a one-time intraarticular cortisone injection to calm down any irritation and possibly postoperative inflammation that we are dealing with. She was most agreeable and understanding with this and so her right knee was prepared in a sterile fashion and some 1% lidocaine along with 1 cc of Aristocort and 1 cc of Decadron was injected via the lateral portal. The procedure was tolerated well. She also was given a small amount of Darvocet, dispensed #40, and was told to use these very sparingly. She was requesting something for her discomfort. If she has any questions or concerns, she was encouraged to call. Otherwise, she was told to make a follow up appointment with Dr. Key in about one month's time for reassessment of this knee to see how things are going. She stated that she saw me again today because she had a difficult time getting in to see Dr. Key in the past and which is why I strongly encouraged her to make the appointment at today's visit so that when her knee really flared up on her again, she would not have to wait for a few weeks to get in. She was understanding of this. This patient was discussed with Dr. Key and he is aware of this course of action. MAGALY Gregory/osito cc: documented in this encounter Nursing Notes 10/31/2005 2:00 PM CDT >> WOLF KIMBALL (ALICIA) 10/31/2005 2:06 pm Right knee pain, pt. Rates pain @ a 6/10, when walking and bending. documented in this encounter Plan of Treatment Not on filedocumented as of this encounter Procedures Procedure Name Priority Date/Time Associated Diagnosis Comme nts HC DRAIN/INJ MAJOR Routine 10/31/2005 3:01 PM CDT INT DERANGEM ENT KNEE JOINT/BURSA W/O US documented in this encounter Visit Diagnoses Diagnosis INT DERANGEMENT KNEE - Primary Unspecified internal derangement of knee documented in this encounter Care Teams Rocket Scientist Relationship Specialty Start Date End Date Devin Britt DO PCP - General 04/18/05 09/04/11 [address] [place] [address] Damian Dowell MD PCP - Surgery 05/08/04 03/14/[address] [address] Collin Singh MD PCP - Orthopaedics 01/23/0602/19/18 documented as of this encounter
--- OUTSIDE RECORDS SUMMARY | 2022-02-06 08:57 | XMS_ITS | Encounter Summary ---
:1970 Author Organization [place] Address [address] [place] [address] Care Team Providers Name Role Phone Devin Britt DO Primary Care Provider Damian Dowell MD Unavailable Reason for Visit Reason Comments Knee(s) Surgery Followup PO right knee 05-06-05 Encounter Details Date Type Department Care Team Description 05/15/2005 Office Visit [facility] Willi Cardoso PA-C SURGERY FOLLOWUP NOS System in [place] XXX XXX (Primary Dx) Orthopedics [address] [place] [address] [place], [place] [phone] Social History Tobacco Use Types Packs/Day Years Used Date Smoking Tobacco: Every Day Cigarettes 1 10 Alcohol Use Standard Drinks/Week Comments Yes 0 (1 standard drink = 0.6 oz pure alcoho l) Social Sex Assigned at Date Recorded Not on file documented as of this encounter Progress Notes Willi Cardoso PA - 05/15/2005 10:00 AM CSTCLINIC ENCOUNTER Ms. Sloan is a pleasant 34-year-old female who is about eight days out from a partial right medial meniscectomy performed by Dr. Key. I did see her recently and did perform an aspiration of the knee joint. The patient stated this did provide her substantial amount of relief and has not had significant problems since. She stated she did trip and fall the other day but did land more so on her left side. She is still having some discomfort about the knee, which is being well controlled with her Darvocet. On examination, there is still a small effusion about the knee. She actually demonstrates excellent full range of motion and quadriceps strength is about 4+ out of 5. The incision sites appear to be healing nicely with no evidence of infection. ASSESSMENT \ PLAN: Fairgt-tbnd-xloe-old female, eight days out from a partial right medial meniscectomy performed by Dr. Key. The patient really appears to be doing reasonably well at this time. She actually was given a knee brace because she was requesting it for work as she does do a fair amount of walking, also up and down ladders. 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 If she has any problems with this, she was encouraged to call at any time. Straight leg exercises were gone over with the patient and I believe she was understanding of the importance of performing these and on her way out, she was told to make an appointment with Dr. Key for about one month from now just to make sure that things are progressing satisfactorily. MAGALY Gregory/osito cc: ECT LEAD documented in this encounter Nursing Notes 05/15/2005 10:00 AM CST >> ASHLEY TORRES 05/15/2005 10:08 am PO right knee arthroscopy 05-06-05. Knee was doing good but patient states she fell down 10-12 steps this morning and having increasing pain. PO , sutures removed and steri strips applied. Incision appears to be healing well. Patient will return for further follow up per Dr. Key. documented in this encounter Plan of Treatment Not on filedocumented as of this encounter Visit Diagnoses Diagnosis Follow-up examination, following unspeci fied surgery - Primary documented in this encounter Care Teams Door Puller Relationship Specialty Start Date End Date Devin Britt DO PCP - General 04/18/05 09/04/11 [address] [place] [address] Damian Dowell MD PCP - Surgery 05/08/04 03/14/[address] [address] documented as of this encounter
--- OUTSIDE RECORDS SUMMARY | 2022-02-06 08:57 | XMS_ITS | Encounter Summary ---
:1970 Author Organization [place] Address [address] [place] [address] Care Team Providers Name Role Phone Devin Britt DO Primary Care Provider Damian Dowell MD Unavailable Reason for Visit Reason Onset Date Comments Refill Request 11/25/2005 Martín Cardoso [place] Encounter Details Date Type Department Care Team Description 11/22/2005 Refill [facility] Willi Cardoso PA-C Refill Request System in [place] XXX XXX (Martín Cardoso, Orthopedics [address] [facility] [address]) [address] [place] [address] [place] [address] [phone] Social History Tobacco Use Types Packs/Day Years Used Date Smoking Tobacco: Every Day Cigarettes 1 10 Alcohol Use Standard Drinks/Week Comments Yes 0 (1 standard drink = 0.6 oz pure alcoho l) Social Sex Assigned at Date Recorded Not on file documented as of this encounter Miscellaneous Notes Telephone Encounter - Eufemia Day) - 11/25/2005 10:53 AM CDT Accepting this Rx will FAX it directly to the pharmacy. documented in this encounter Plan of Treatment Not on filedocumented as of this encounter Visit Diagnoses Not on filedocumented in this encounter Care Teams Software Licensing Specialist Relationship Specialty Start Date End Date Devin Britt DO PCP - General 04/18/05 09/04/[address] [place] [address] Damian Dowell MD PCP - Surgery 05/08/04 03/14/14 ON LICENSE OF [facility] [address] [place] [address] documented as of this encounter
--- OUTSIDE RECORDS SUMMARY | 2022-02-06 08:57 | XMS_ITS | Encounter Summary ---
:1970 Author Organization [place] Address [address] [place] [address] Care Team Providers Name Role Phone Urvashi Mccabe MD Primary Care Provider Damian Dowell MD Unavailable Reason for Visit Reason Comments Drug Screen Pre uds for [employer] Encounter Details Date Type Department Care Team Description 03/25/2005 Office Visit [facility] Health Nurse, Frw Occ HEALTH EXAM-GROUP System in [place] [facility] SURVEY (Primary Dx) Occup[employer] [address] [phone] [address] [place] [address] Social History Tobacco Use Types Packs/Day Years Used Date Smoking Tobacco: Every Day Cigarettes 1 10 L ast attempted to quit: 04/02/2004 Alcohol Use Standard Drinks/Week Comments Yes 0 (1 standard drink = 0.6 oz pure alcoho l) Social Sex Assigned at Date Recorded Not on file documented as of this encounter Nursing Notes 03/25/2005 2:45 PM CST >> ANNY HATCH 03/25/2005 2:48 pm 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 documented in this encounter Plan of Treatment Not on filedocumented as of this encounter Visit Diagnoses Diagnosis Health examination of defined subpopulat ion - Primary documented in this encounter Care Teams Transfer Worker Relationship Specialty Start Date End Date Urvashi Mccabe MD PCP - General 11/07/04 04/17/05 [facility] [address] [facility] [address] [place] [address] Damian Dowell MD PCP - Surgery 05/08/04 03/14/[address] [address] documented as of this encounter
--- OUTSIDE RECORDS SUMMARY | 2022-02-06 08:58 | XMS_ITS | Encounter Summary ---
:1970 Author Organization [place] Address [address] [place] [address] Care Team Providers Name Role Phone Urvashi Mccabe MD Primary Care Provider Edwin Rangel MD Primary Care Provider Damian Dowell MD Unavailable Reason for Visit Reason Comments Consult ref. from Encounter Details Date Type Department Care Team Description 10/31/2004 Office Visit [facility] Ariana Salgado SYM PTOMS IN BREAST System in [facility] (Primary Dx) Surgery [address] [place], [place] [id number] [phone] Social History Tobacco Use Types Packs/Day Years [...] Sign Reading Time Taken Comments Blood Pressure 140/70 10/31/2004 2:30 PM CDT Pulse - - Temperature 35.9 ??C (96.6 ??F) 10/31/2004 2:30 PM CDT Respiratory Rate - - Oxygen Saturation - - Inhaled Oxygen Concentration - - Weight - - Height - - Body Mass Index - - documented in this encounter Progress Notes Ariana Salgado - 10/31/2004 4:03 PM CDT This office note has been dictated. Ariana Salgado - 10/31/2004 2:30 PM CDT CLINIC ENCOUNTER Ms. Sloan is a 34-year-old female sent to me by Dr. Lowery because of possible leaking breast implants. The patient states that over the past five to six months she is having increasing muscle aches, generalized exhaustion and tiredness, and a low-grade temperature anywhere from [address] Lowery has done extensive workup and they cannot find an etiology to this and they are concerned that her implants may have ruptured. She had implants placed in 1990. She did have silicone implants placed. She said approximately five years after that she developed capsulitis and her breast can be tender, but otherwise, she has noted no other changes. On physical exam today, her nipples are everted bilaterally. There are no visible skin changes or visible masses to palpation. The breasts are very hard and firm consistent with capsulitis. I do not feel any obvious or gross rupture. There is no adenopathy. I recommended that the patient undergo an MRI of her breasts at this time to look at the integrity of the capsules around the silicone and I will call her with the results. We will schedule her for this at the [place]. Ariana Salgado D.O. MODESTA/jazmin cc: Urvashi Lowery M.D. documented in this encounter Nursing Notes 10/31/2004 2:30 PM CDT >> RANJIT FOSTER 10/31/2004 2:50 pm Aileen is here for a consult regarding her implants, she has been running a temp since July, she says she's had nipple discharge on the left since . [place] Plan of Treatment Not on filedocumented as of this encounter Visit Diagnoses Diagnosis Other sign and symptom in breast - Prima ry documented in this encounter Care Teams Ell Teacher Relationship Specialty Start Date End Date Urvashi Mccabe MD PCP - General 11/07/04 04/17/05 [facility] [address] [place] [address] [address] [place] [address] Edwin Rangel MD PCP - General 05/08/04 11/06/[address] [id number] Damian Dowell MD PCP - Surgery 05/08/04 03/14/14 [facility] [address] [place] [address] documented as of this encounter
--- OUTSIDE RECORDS SUMMARY | 2022-02-06 08:58 | XMS_ITS | Encounter Summary ---
:1970 Author Organization [place] Address [address] [place] [address] Care Team Providers Name Role Phone Edwin Rangel MD Primary Care Provider Damian Dowell MD Unavailable Reason for Visit Reason Comments *-*INCOMING RECORDS*-* From [facility] Encounter Details Date Type Department Care Team Description 10/26/2004 Abstract [facility] Automotive Parts CoordinatorPatricia ng Records : [facility] in [facility] Medical Records [address] [place] [address] Social History Tobacco Use Types Packs/Day Years Used Date Smoking Tobacco: Every Day Cigarettes 1 10 L ast attempted to quit: 04/02/2004 Alcohol Use Standard Drinks/Week Comments Yes 0 (1 standard drink = 0.6 oz pure alcoho l) Social Sex Assigned at Date Recorded Not on file documented as of this encounter Progress Notes Automotive Parts Coordinator, S.H - 10/26/2004 8:45 AM CDT *-*-*-* INCOMING RECORDS *-*-*-* Pertinent information has been abstracted out of Incoming Records. To see a complete copy of the Records please refer to the scan below. Thanks [facility], Automotive Parts Coordinator documented in this encounter Plan of Treatment Not on filedocumented as of this encounter Visit Diagnoses Not on filedocumented in this encounter Care Teams Microsoft Crm Developer Relationship Specialty Start Date End Date Edwin Rangel MD PCP - General 05/08/04 11/06/[address] [address] Damian Dowell MD PCP - Surgery 05/08/04 03/14/14 [facility] [address] [address] documented as of this encounter
--- OUTSIDE RECORDS SUMMARY | 2022-02-06 08:58 | XMS_ITS | Encounter Summary ---
:1970 Author Organization [place] Address [address] [place] [address] Care Team Providers Name Role Phone Edwin Rangel MD Primary Care Provider Damian Dowell MD Unavailable Reason for Visit Reason Onset Date Comments Refill Request 05/24/2004 vicodin Encounter Details Date Type Department Care Team Description 05/24/2004 Refill [facility] Lexis Myrick, Ref ill Request [facility] FACILITIES LOCATOR HEEL GUMMER (vicodin) Practice [facility] [address] [place] [address] [place] [address] [phone] (Wo rk) Social History Tobacco Use Types Packs/Day Years Used Date Smoking Tobacco: Former Cigarettes 0.5 7 Quit : 04/02/2004 Alcohol Use Standard Drinks/Week Comments Not Asked 0 (1 standard drink = 0.6 oz pure alcoho l) Sex Assigned at Date Recorded Not on file documented as of this encounter Miscellaneous Notes Telephone Encounter - 05/24/2004 9:46 AM STROKE PROGRAM COORDINATOR >> LEXIS Hansen May 24, 2004 12:28 PM Aileen Sloan was seen in urgent care and then [place] I see she requested more pain meds from Dr. Dowell and he recommended follow up with him. Refused refill LH >> RUBÉNJudie Hansen May 24, 2004 9:50 AM seen by you on 05/16/04 and Rubi on 05/17/04. Is still not getting any relief and will need refill of med med until she can get to specialist on 05/[address] [place] [address] Golden on 06/11/04. Accepting thisrx will be faxed directly to pharmacy. documented in this encounter Plan of Treatment Not on filedocumented as of this encounter Visit Diagnoses Not on filedocumented in this encounter Care Teams Sea Air Land Officer Relationship Specialty Start Date End Date Ewdin Rangel MD PCP - General 05/08/04 11/06/[address] [id number] Damian Dowell MD PCP - Surgery 05/08/04 03/14/14 [facility] [address] [place] [address] documented as of this encounter
--- OUTSIDE RECORDS SUMMARY | 2022-02-06 08:58 | XMS_ITS | Encounter Summary ---
:1970 Author Organization [place] Address [address] [place] [address] Care Team Providers Name Role Phone Edwin Rangel MD Primary Care Provider Damian Dowell MD Unavailable Reason for Referral - Closed Specialty Diagnoses / Procedures Referred By Contact Refer red To Contact Diagnoses Backache, unspecified Zz Rw Phy Therapy Procedures RW PT BILLING [[id number]] [place] [address] Referral ID Status Reason Start Date Expiration Date Visits Requ ested Visits Authorized [id number] Closed 11/05/2004 04/13/2011 1 1 Reason for Visit Reason Comments PT Initial Visit lumbar Encounter Details Date Type Department Care Team Description 11/05/2004 [facility] Janessa Day PT Ini tial Visit Health/Nurse System in [place] PT (lumbar) Visit Physical Therapy [address] in [facility] [phone] [place] [address] [place], [place] [id number] Social History Tobacco Use Types Packs/Day Years Used Date Smoking Tobacco: Every Day Cigarettes 1 10 L ast attempted to quit: 04/02/2004 Alcohol Use Standard Drinks/Week Comments Yes 0 (1 standard drink = 0.6 oz pure alcoho l) Social Sex Assigned at Date Recorded Not on file documented as of this encounter Progress Notes Janessa Day - 11/05/2004 10:39 AM CDT PHYSICAL THERAPY INITIAL EVALUATION Specialty Tracking - Outpatient NAME: Aileen Sloan Date: 11/05/2004 Referring Provider: Urvashi Lowery M.D. SUBJECTIVE PRESENTATION AND ETIOLOGY Chief Complaint: Bilateral low back pain; pain with daily activities and sitting Character: sharp pain; feels like a really bad spasm; stabbing and twisting pain Onset: DOI: 08/16 Etiology: carrying 500# doghouse with boyfriend; fell in hole dropping doghouse causing backpain Pattern Since Onset: Worsened Symptom Pattern: Day worse with activity Frequency / Intensity: Constant 11/21, Activity Dependent 02/21 Aggravating Activities / Functional Limitation(s): ADL's: pain with daily activities of vacuuming, picking up after kids Work: currently not working Sitting: painful Stairs: painful Standing: painful Walking: painful Driving: painful Leisure / Sports / Hobbies: ride motorcycle, reading, walking dogs, and playing basketball with son Relieving Activities / Self Care: Ice and OTC Medication(s): ibuprofen Specific Questions: pain extends down to buttocks on both sides; tingling in R big toe with one episode of numbness from inside of foot up into back of calf Previous Functional Level: WNL EMPLOYMENT STATUS: Unemployed CURRENT INTERVENTION(S): Referring Provider: Urvashi Lowery M.D. Date: 10/30/04 Recheck: as needed Treatment: Referral to Physical Therapy and Prescribed medications for chief complaint: Pain Medication - Taking as prescribed - Yes. Effective Yes Diagnostic Tests: MRI - Results: Epic summary reviewed PERTINENT MEDICAL HISTORY: Contributory: fibromyalgia Previous / Current therapies for current chief complaint: Chiropractic - 3 times which helped briefly having ultrasound, e-stim and adjustments Patient's selected goals for physical therapy - Get rid of the pain and be able to function without pain; be able to exercise without pain. OBJECTIVE: OBSERVATION - repositions self frequently in sitting Pain behaviors: None Posture assessment: poor sitting posture with forward head and rounded shoulders GAIT & LOCOMOTION: Non-Antalgic RANGE OF MOTION: Active: trunk flexion able to reach fingertips to midthigh, extension limited to 10 degrees, B SB WNL pain with L SB; hips WNL pain with B external rotation Passive: WNL/WFL Accessory motion: Not Tested MUSCLE PERFORMANCE: Strength: B hips WNL; fair to good TA activation Flexibility: B hamstrings to 55 degrees with pain Functional Testing: able to heel and toe walk PALPATION: Reproduction of symptoms with palpation of B T8-S1 paraspinals along with tenderness extending into B gluteal area and out over iliac crests; main point of tenderness over B L3-5 area SPECIAL TEST(S): (-) SLR, slump Myotome Testing: Not Tested Sensation Testing: Not Tested Deep Tendon Reflexes: Not Tested BALANCE & PROPRIOCEPTION: Single Leg Balance equal bilaterally NEUROMOTOR DEVELOPMENT AND SENSORY INTEGRATION: WNL/WFL VENTILATION, RESPIRATION, AND CIRCULATION: WNL/WFL Today's Treatment: Initial evaluation MODALITIES Iontophoresis: 2 ml Dexamethasone 40 mA min to R L4-5 area in prone x10' THERAPEUTIC PROCEDURES Self Care / Home Management Trainin minutes Joint Protection: use to towel roll with sitting at home and trial use of full lumbar roll in car Symptom Control: continue with use of heat/cold at home for pain relief Therapeutic Exercise: 15 minutes Lumbar / SI: Stretching: single knees to chest x15 sec hold x3 and seated forward flexion stretch x15 sec hold x3 PRE's / Stabilization: abdominal bracing x10, heel slides x5, alternating arm raises x5, and marching x5. Treatment Duration: 60 minutes. ASSESSMENT Physical Therapy Diagnosis: Impaired Joint Mobility, Motor Function, Muscle Performance, & ROM associated w/ Connective Tissue Dysfunction and Impaired Joint Mobility, Motor Function, Muscle Performance, & ROM associated w/ Localized Inflammation Patient requires PT intervention for the following impairments: limited knowledge of condition and /or self care - inability to control symptoms, pain, impaired posture / muscle imbalance , decreased AROM, decreased muscle strength and endurance, decreased muscle flexibility and decreased soft tissuemobility Patient requires PT interventions for the following functional limitations: decreased tolerance or inability to perform ADL's decreased tolerance or inability to perform work duties decreased tolerance or inability to perform leisure / sport activities STG Completed within: 2 week(s). Patient will report a 50% improvement in symptoms Will be independent with symptom control techniques Compliant with home management recommendations ROM will be within function limits and pain free LTG/Discharge Plan (Completed at discharge): Will perform all work duties without increased symptoms or limitation Will tolerate all functional activities without increased symptoms or limitations Will participate in all sports/leisure activities without increased symptoms or limitations Independent with HEP and Self Care Rehab potential for achieving goals: good. PLAN: Patient will benefit from skilled physical therapy consisting of modalities to administer medicationto decrease inflammation and control pain and relieve pain and increase tissue flexibility, manual therapy techniques to improve soft tissue mobility and pain complaints, neuromuscular reeducation of: posture for sitting and / or standing activities, education in self care / home management training to include instruction in: joint protection principles and symptom control techniques and therapeutic exercise to develop: strength and endurance, range of motion and joint stability Assessment will be ongoing with changes in treatment as indicated. Benefits/risks/alternatives to treatment have been reviewed and the patient has been instructed to contact this office if they have any questions or concerns. This plan of care has been discussed with the patient and the patient is in a greement. Frequency: Patient will be seen 2 times a week for 4 weeks. Janessa Day, [place] Referring Provider Certification: Referring Provider reviewing certifies that the above treatment/ plan of care is required and authorized, and that the patient's plan will be reviewed every thirty(30) days . MULTIDISCIPLINARY PATIENT / FAMILY EDUCATION RECORD Department: [...] Diagnosis Comme nts RW PT BILLING Routine 11/05/2004 2:44 PM CDT Backache Nos documented in this encounter Visit Diagnoses Diagnosis Backache, unspecified - Primary documented in this encounter Care Teams Ampoule Washing Machine Operator Relationship Specialty Start Date End Date Edwin Rangel MD PCP - General 05/08/04 11/06/[address] [address] Damian Dowell MD PCP - Surgery 05/08/04 03/14/14 [facility] [address] [place] [address] documented as of this encounter
--- OUTSIDE RECORDS SUMMARY | 2022-02-06 08:58 | XMS_ITS | Encounter Summary ---
:1970 Author Organization [place] Address [address] [place] [address] Care Team Providers Name Role Phone Unavailable Primary Care Provider Unavailable Reason for Visit Reason Comments UTI continuing UTI symptoms Encounter Details Date Type Department Care Team Description 04/25/2004 Office Visit [facility] Edwin Rangel DYSU RIA (Primary Dx); System - [place] in [place] SYMPTOMS IN BREAST [address] [address] Social History Tobacco Use Types Packs/Day Years [...] Pressure - - Pulse - - Temperature 36.2 ??C (97.1 ??F) 04/25/2004 11:31 AM GENERAL CONTRACTOR Respiratory Rate - - Oxygen Saturation - - Inhaled Oxygen Concentration - - Weight - - Height - - Body Mass Index - - documented in this encounter Progress Notes 04/25/2004 11:15 AM GENERAL CONTRACTOR Addended by: ERNA ADAMSON on: 05/01/2004,9:53 AM Comment: Radiotelephone Operator Modules accepted: Jacinta horvath Notes I. She now has urinary frequency but no dysuria or blood in the urine. Has had some back pain with it. UA was obtained and discussed. Septra discussed including pros and cons and pos sible problems. II. She just developed some drainage from both nipples. She did a home test that was negative. She has been on the Depo Provera shot for a couple of years she says. There is no family historyof any breast cancer. Vital signs discussed. Both breasts show no erythema o r swelling or asymmetry. Sitting and then supine there is no neck or supraclavicular axillary lympha denopathy palpable and both breasts are nontender with no abnormal palpable masses or inverted nipple s. There is some minimal drainage out of theleft greater than right nipple and it is opaque and whi te with no redness. I talked with her about doing a serum Prolactin level and what that was for and that she is in agreement. She said that her mother used to be a coreroom foundry laborer and would ask her what mohsen ts were done. She hasnot had a mammogram for about 5 years and is willing to have one scheduled (199 1 silicone implants and she said it would be $5,000 - 10,000 to remove them and about $3000 to put in a different one.) For educational reasons I did talk to her about possible future placing of some o f the nipple drainage on a slide. I also told her it was more hormonal being bilateral drainage rath er than unilateraldrainage which was most likely infection or tumor, etc. I told her to keep in wilfrido even after the pending serum study and mammogram return and she said she would. Edwin Rangel M.D./erna d: 04/25/2004 t: 04/30/2004 documented in this encounter Nursing Notes 04/25/2004 11:15 AM CST >> MELVA CISNEROS 04/25/2004 11:33 am Pain Questionnaire: Is your visit today because of Pain? NO Aileen states she has had this for some time now, finished antibiotics but UTI sx still there. documented in this encounter Plan of Treatment Not on filedocumented as of this encounter Procedures Procedure Name Priority Date/Time Associated Comments Diagnosis HC VENOUS COLLECTION Routine 04/25/2004 12:11 PM Symptoms In B reast GENERAL CONTRACTOR Nec Dysuria HCL PROLACTIN Routine 04/25/2004 12:08 PM Symptoms In Breast R esults for this GENERAL CONTRACTOR Nec procedure are in Dysuria the results section. HCL UA MICRO IF Routine 04/25/2004 11:26 AM Dysuria Results for this POSITIVE GENERAL CONTRACTOR Symptoms In Breast procedure are in Nec the results section. CL AFF MICRO Routine 04/25/2004 11:26 AM Dysuria Results for this EXAM-URINE GENERAL CONTRACTOR Symptoms In Breast procedure are in Nec the results section. documented in this encounter Results PROLACTIN, SERUM (04/25/2004 12:08 PM GENERAL CONTRACTOR) P athologist Signature Prolactin 10 3 - 27 ug/L [facility] Specimen Anatomical Collection Method Collection Time Receive d Time (Source) Location / / Volume Laterality 04/25/2004 12:08 04/25/2004 PM GENERAL CONTRACTOR 12:13 PM GENERAL CONTRACTOR Edwin Rangel MD LABORATORY Performing Organization Address City/State/ZIP Code Phon e Number [address] LABS (ABNORMAL) MICRO EXAM-URINE (04/25/2004 11:26 AM GENERAL CONTRACTOR) Patholo gist Method Time Signature WBC Urine 2-5 0 - 2 [facility] Abnorm Result /HPF [facility] RBC Urine 10-25 0 - 2 [facility] Abnorm Result /HPF [facility] Squamous EPI Few FEW /LPF [facility] Bacteria Urine Moderate (A) NEG /HPF [facility] Mucous Urine Present (A) NEG /LPF [facility] Specimen Anatomical Collection Method Collection Time Receive d Time (Source) Location / / Volume Laterality 04/25/2004 11:26 04/25/2004 AM GENERAL CONTRACTOR 11:36 AM GENERAL CONTRACTOR Edwin Rangel MD LABORATORY Performing Organization Address City/State/ZIP Code Phon e Number [facility] (ABNORMAL) UA MICRO IF POSITIVE (04/25/2004 11:26 AM GENERAL CONTRACTOR) Patholo gist Method Time Signature Color Urine Yellow [facility] Appearance Urine Clear [facility] Glucose Urine Negative NEG mg/dL [facility] Bilirubin Urine Negative NEG [facility] Ketones Urine Trace (A) NEG mg/dL [facility] Specific [place] 1.020 1.001 - [place] [facility] Urine 1.035 [facility] Blood Urine Moderate (A) NEG [facility] pH Urine 6.0 5.0 - 7.0 [facility] pH [facility] Protein Albumin Negative NEG mg/dL [facility] [facility] Urine [facility] Urobilinogen 0.2 0.2 - 1.0 [place] [facility] Urine EU/dL [facility] Nitrite Urine Negative NEG [place] [facility] Leukocyte Negative NEG [facility] Esterase Urine [facility] Source Midstream [facility] Urine [facility] Specimen Anatomical Collection Method Collection Time Receive d Time (Source) Location / / Volume Laterality 04/25/2004 11:26 04/25/2004 AM GENERAL CONTRACTOR 11:36 AM GENERAL CONTRACTOR Edwin Rangel MD LABORATORY Performing Organization Address City/State/ZIP Code Phon e Number [facility] documented in this encounter Visit Diagnoses Diagnosis Dysuria - Primary Other sign and symptom in breast documented in this encounter
--- OUTSIDE RECORDS SUMMARY | 2022-02-06 08:58 | XMS_ITS | Encounter Summary ---
:1970 Author Organization [place] Address [address] [place] [address] Care Team Providers Name Role Phone Edwin Rangel MD Primary Care Provider Damian Dowell MD Unavailable Reason for Visit Reason Onset Date Comments Pain 05/08/2004 Continued pain and b lood in urine Encounter Details Date Type Department Care Team Description 05/08/2004 Telephone [facility] Edwin Rangel, Pain (Continued pain System - [place] in [place] and blood in urine) [address] [id number] Social History Tobacco Use Types Packs/Day Years Used Date Smoking Tobacco: Former Cigarettes 0.5 7 Quit : 04/02/2004 Alcohol Use Standard Drinks/Week Comments Not Asked 0 (1 standard drink = 0.6 oz pure alcoho l) Sex Assigned at Date Recorded Not on file documented as of this encounter Miscellaneous Notes Telephone Encounter - 05/08/2004 11:37 AM 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 called previous clinic and they informed her last Depo-Provera injection was January.([address] Rangel pt. to have urine test, if negative can receive Depo shot. >> MARIANNE STAUFFERE FriMay 14, 2004 11:16 AM Kya't. scheduled for saturday May 29, [address] Richard Harris at [facility]. Phone # is [phone]. >> MARIANNE STAUFFERE FriMay 11, 2004 4:23 PM Called urologist in [place] - unable to get through on phone number we have. Will research number. >> MARIANNE ADAM FriMay 08, 2004 4:19 PM Pt. states she has never been to [place] for this. Spoke with Dr. Rangel who states ok to refer her tourologist in [place]. Pt. infromed. I will call kat. for kya't. for her. >> EDWIN RANGEL FriMay 08, 2004 3:03 PM since [place] follows her kidneys, she should go back there; either by her appt. or thru their er. >> MARIANNE ADAM FriMay 08, 2004 11:42 AM Pt. calls stating she is still having some pain and blood in urine. Cultures were negative. Question ing whether she should see urologist? Pt. also requesting something for pain that she can take durin g day? Fax to [facility]. Nurse to call pt. back with reply. documented in this encounter Plan of Treatment Not on filedocumented as of this encounter Visit Diagnoses Not on filedocumented in this encounter Care Teams Application Developer Manager Relationship Specialty Start Date End Date Edwin Rangel MD PCP - General 05/08/04 11/06/[address] [address] Damian Dowell MD PCP - Surgery 05/08/04 03/14/14 [facility] [address] [place] [address] documented as of this encounter
--- OUTSIDE RECORDS SUMMARY | 2022-02-06 08:58 | XMS_ITS | Encounter Summary ---
:1970 Author Organization [facility] Address [address] [place] [address] Care Team Providers Name Role Phone Devin Britt DO Primary Care Provider Urvashi Mccabe MD Primary Care Provider Edwin Rangel MD Primary Care Provider Damian Dowell MD Unavailable Collin Singh MD Unavailable Unavailable Frw, None Primary Care Provider Unavailable Allison Smyth Primary Care Provider Lyndsey Guzman MD Primary Care Provider Carine Smallwood MD Unavailable Vee Levy-C Unavailable [phone] Carine Smallwood MD Unavailable Vee Levy-C Unavailable [phone] Carine Smallwood MD Unavailable Vee Levy-C Unavailable [phone] Carine Smallwood MD Unavailable Vee Levy-C Unavailable [phone] Carine Smallwood MD Unavailable Vee Levy PA-C Unavailable Carine Smallwood MD Unavailable Vee Levy PA-C Unavailable Carine Smallwood MD Unavailable Mildred Vee White PA-C Unavailable [phone] Reason for Visit Reason Onset Date Comments Pain 05/21/2004 Encounter Details Date Type Department Care Team Description 05/21/2004 Telephone [facility] Damian Dowell MD Pain in [place] [facility] [address] [place] [phone] [facility] [phone] [place], [place] [address] (Wo rk) Social History Tobacco Use Types Packs/Day Years Used Date Smoking Tobacco: Former Cigarettes 0.5 7 Quit : 04/02/2004 Alcohol Use Standard Drinks/Week Comments Not Asked 0 (1 standard drink = 0.6 oz pure alcoho l) Sex Assigned at Date Recorded Not on file documented as of this encounter Miscellaneous Notes Telephone Encounter - 05/21/2004 9:34 AM 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 RVISOR BOTTLE MACHINES documented in this encounter Plan of Treatment Not on filedocumented as of this encounter Visit Diagnoses Not on filedocumented in this encounter Care Teams Market Investigator Relationship Specialty Start Date End Date Devin Britt DO PCP - General 04/18/05 09/04/11 [address] [place], [place] [id number] Urvashi Mccabe MD PCP - General 11/07/04 04/17/[address] [place] [address] Edwin Rangel MD PCP - General 05/08/04 11/06/[address] [id number] Damian Dowell MD PCP - Surgery 05/08/04 03/14/[address] [address] Collin Singh MD PCP - Orthopaedics 01/23/0602/19/18 Frw, None PCP - General Family Practice 09/05/11 09/18/13 Allison Smyth PCP - General Family Practice 09/19/13 08/27/20 Lyndsey Guzman MD PCP - General Family Medicine 08/28/20 [facility] [address] [place] [address] Carine Smallwood MD Assigned Surgical Provider 09/17/[address] [place] [address] 172157 Vee Levy, Assigned Surgical Provider 11/04/20 PA-C [address] [place] [address] 634777 Carine Smallwood MD Assigned Surgical Provider 11/05/[address] [place] [address] [phone] Vee Levy, Assigned Surgical Provider 12/30/20 PA-C [address] [place], [place] [address] Carine Smallwood MD Assigned Surgical Provider 12/31/2002/[address] [place] [address] Vee Levy, Assigned Surgical Provider 03/1103/24/21 PA-C [address] [place] [address] Carine Smallwood MD Assigned Surgical Provider 02/25/2103/[address] [place] [address] Vee Levy, Assigned Surgical Provider 02/1102/24/21 PA-C [address] [place] [address] Carine Smallwood MD Assigned Surgical Provider 03/25/21 [address] [place] [address] Vee Levy, Assigned Surgical Provider 2 04/21/21 PA-C [address] [place] [address] Carine Smallwood MD Assigned Surgical Provider 05/27/21 [address] [place] [address] Vee Levy, Assigned Surgical Provider 2 05/26/21 PA-C [address] [place] [address] Carine Smallwood MD Assigned Surgical Provider 04/22/[address] [place], [place] [phone] Vee Levy, Assigned Surgical Provider 2 [place] [address] [place], [place] 8[address]47 documented as of this encounter
--- OUTSIDE RECORDS SUMMARY | 2022-02-06 08:58 | XMS_ITS | Encounter Summary ---
:1970 Author Organization [place] Address [address] [place] [address] Care Team Providers Name Role Phone Edwin Rangel MD Primary Care Provider Damian Dowell MD Unavailable Reason for Visit Reason Comments Imm/Inj Depo Provera Encounter Details Date Type Department Care Team Description 09/25/2004 [facility]/Nurse [facility] Im m/Inj (Depo Provera) Visit System - [place] in [address] [address] Social History Tobacco Use Types Packs/Day Years Used Date Smoking Tobacco: Every Day Cigarettes 0.5 7 L ast attempted to quit: 04/02/2004 Alcohol Use Standard Drinks/Week Comments Not Asked 0 (1 standard drink = 0.6 oz pure alcoho l) Sex Assigned at Date Recorded Not on file documented as of this encounter Plan of Treatment Not on filedocumented as of this encounter Visit Diagnoses Diagnosis General counseling for initiation of oth er contraceptive measures - Primary documented in this encounter Care Teams Drapery Operator Relationship Specialty Start Date End Date Edwin Rangel MD PCP - General 05/08/04 11/06/[address] [phone] Damian Dowell MD PCP - Surgery 05/08/04 03/14/14 [facility] [address] [address] documented as of this encounter
--- OUTSIDE RECORDS SUMMARY | 2022-02-06 08:58 | XMS_ITS | Encounter Summary ---
:1970 Author Organization [facility] Address [address] [place] [address] Care Team Providers Name Role Phone Edwin Rangel MD Primary Care Provider Damian Dowell MD Unavailable Reason for Visit Reason Onset Date Comments Pain 10/26/2004 Encounter Details Date Type Department Care Team Description 10/24/2004 Telephone [facility] in [facility] Urvashi aceves MD Pain [place] [facility] d[facility] [address] [place] [address] [place] [address] [phone] (Wo rk) Social History Tobacco Use Types Packs/Day Years Used Date Smoking Tobacco: Every Day Cigarettes 1 10 L ast attempted to quit: 04/02/2004 Alcohol Use Standard Drinks/Week Comments Yes 0 (1 standard drink = 0.6 oz pure alcoho l) Social Sex Assigned at Date Recorded Not on file documented as of this encounter Miscellaneous Notes Telephone Encounter - Wellington Santos - 10/26/2004 9:45 AM CDT Pt called and was given this message,she states her back is really not any better, will try this med Telephone Encounter - Wellington Santos - 10/25/2004 3:13 PM CDT when I call this cell phone it does not say her name,it says a eva name but a girls voice making the recording. I left a very generic message that if it is [place] to please call this office.also leftmessage at home number Telephone Encounter - Urvashi Lowery MD - 10/25/2004 12:01 PM CDT I have called in Percodan. Have her try it. Telephone Encounter - Wellington Santos - 10/24/2004 9:19 AM CDT Pt says has been throwing up the darvocet,takes it only at night but a short while later has to get up and vomitt,so its not doing any good. If you want to try something else she would like it to [facility]! We are to call her cell phone to let her know,she is going to the chiropractor haris nuñez.[phone] documented in this encounter Plan of Treatment Not on filedocumented as of this encounter Visit Diagnoses Not on filedocumented in this encounter Care Teams Therapy Assistant Relationship Specialty Start Date End Date Edwin Rangel MD PCP - General 05/08/04 11/06/[address] [address] Damian Dowell MD PCP - Surgery 05/08/04 03/14/14 [facility] [address] [place] [address] documented as of this encounter
--- OUTSIDE RECORDS SUMMARY | 2022-02-06 08:58 | XMS_ITS | Encounter Summary ---
:1970 Author Organization [facility] Address [address] [place] [address] Care Team Providers Name Role Phone Urvashi Mccabe MD Primary Care Provider Edwin Rangel MD Primary Care Provider Damian Dowell MD Unavailable Reason for Referral - Closed Specialty Diagnoses / Procedures Referred By Contact Refer red To Contact Diagnoses Backache, unspecified Other sign and symptom in breast Urvashi Mccabe MD [facility] [place] [address] [place] [address] Fax: Referral ID Status Reason Start Date Expiration Date Visits Requ ested Visits Authorized [id number] Closed 10/22/2004 04/13/2011 1 1 Reason for Visit Reason Comments Establish Care New Pt to our clinic. Multip le issues. Have records. Encounter Details Date Type Department Care Team Description 10/22/2004 Office Visit [facility] [place] BACKACHE NOS (Primary Dx); System in [place] Urvashi MD SYMPTOMS IN BREAST NEC; Internal Medicine [facility] [place] MYALGIA AND MYOSITIS NOS(aka MYOSITIS) [address] [address] [place], [place] [phone] [address] Social History Tobacco Use Types Packs/Day Years [...] Sign Reading Time Taken Comments Blood Pressure 140/90 10/22/2004 3:00 PM CDT Pulse 92 10/22/2004 3:00 PM CDT Temperature 36.8 ??C (98.2 ??F) 10/22/2004 3:00 PM CDT Respiratory Rate - - Oxygen Saturation - - Inhaled Oxygen Concentration - - Weight 83.6 kg (184 lb 3.2 oz) 10/22/2004 3:00 PM CDT Height 168.3 cm (5' 6.25) 10/22/2004 3:00 PM CDT Body Mass Index 29.51 10/22/2004 3:00 PM CDT documented in this encounter Progress Notes Urvashi Lowery MD - 10/23/2004 4:21 PM CDT Comment: Technical Proposal Writer SUBJECTIVE: Jose E is a 34 year old white female who is here to establish care with me. She has a couple of concernes that she would like me to addresss. One is that she has been having fever. She states that the low grade fevers have been going on for about she thinks may be a full week or a little bit more. She was not aware that she was running fevers, but then developed back pain and during the process of evaluation, was noticed to have pyelonephritis and was treated for it. She states now the pyelonephritishas resolved, however, she continues to have some increased frequency of urination. She states that every hour she feels like she needs to pass water, but when she does pass water it is very little. She denies any associated hematuria, dysuria, nausea, vomiting, or chills. The main reason for concern over the low grade fever is because she has breast implants and wonders if they are leaking and this is a side effect from it. She states she is sure her urinary tract infection is resolved, but she is puzzled by the low grade fevers. Denies any tenderness around her breast tissue. She states they havebecome hardened and no longer as soft as they were at the time she had the implants placed. She denies any aching, body aches which are specific for this. She says she has fibromyalgia so she cannot differentiate both and she is now sure if there is anything more to do with this other than her fibromyalgia acting up. She wonders if there is any way of having breast implants evaluated and if so, wouldlike to proceed with that. She knows there is no question of having it removed because the insurancecompany will not pay for it and she doesn't have the money for the surgery. She had bilateral silicone breast implants placed in July 1990. Aileen Sloan is a 34 year old female who complains of low back pain for 4 weeks. Timing: sudden onset. Recent injury: YES. Where occurred: home. Context: lifting. Previous injury: NO. Quality of pain: ache. Severity of pain: moderate, localized and intermittent. Exacerbated by: lifting, standing, sitting, bending, twisting Relieved by: rest, standing tried other medications: Darvocet for pain, with moderate relief Neurologic symptoms: negative for, bowel dysfunction, bladder dysfunction, local weakness, headaches, syncope, involuntary movements, incoordination and tremor Patient Active Problem List: ACNE NEC[706.1] IRRITABLE COLON[564.1] MYALGIA AND MYOSITIS NOS(aka MYOSITIS)[729.1] DEPRESSIVE DISORDER NEC(aka DEPRESSION)[311] TOBACCO USE DISORDER[305.1] ABDOMINAL PAIN LLQ[789.04] Current medications reviewed. Patient denies problems with compliance or side effects. REVIEW OF SYSTEMS: General: negative for, fever, chills, intentional weight loss, weight gain, headaches Skin: negative for, pigmentation, rash, scaling, itching Resp: negative for, cough, sputum, dyspnea, dyspnea on exertion and wheezing CV: negative for, palpitations, tachycardia, irregular heart beat, chest pain, exertional chest painor pressure, paroxysmal nocturnal dyspnea, dyspnea on exertion, orthopnea and lower extremity edema GI: negative for, poor appetite, dysphagia, nausea, vomiting, heartburn/dyspepsia, reflux and abdominal pain : negative for, dysuria, urgency, hesitancy, hematuria, retention, decreased urinary stream and incontinence Neurologic: negative for, migraine headaches, syncope, stroke, seizures, paralysis, local weakness, numbness or tingling of hands, numbness or tingling of feet, involuntary movements, speech problems, incoordination, memory problems and tremor OBJECTIVE:BP 140/90 Pulse 92 Temp (Src) 98.2 (Tympanic) Ht 5' 6.25 (1.68m) Wt 184 lbs 3.2 oz (83.6kg) LMP UNKNOWN General Appearance: healthy, alert, active, no distress Neck: Supple, no cervical adenopathy, no thyromegaly, Full range of motion in all planes Heart: regular rate and rhythm with normal S1, S2 ; no murmur, rub or gallops Lungs: with normal respiratory effort Abdomen: Soft, nontender. Normal bowel sounds. No hepatosplenomegaly or abnormal masses Extremities: no peripheral edema, peripheral pulses normal Musculoskeletal: Back with normal ROM. Motor strength intact. Neurological: Cranial nerves 2-12 intact, motor strength intact, reflexes normal, Romberg negative, normal gait Outside clinic notes reviewed.Ct scan and MRI results reviewed. ASSESSMENT: BACKACHE NOS SYMPTOMS IN BREAST NEC MYALGIA AND MYOSITIS NOS RECOMMENDATIONS: 1. For her back problems, patient already has an appointment scheduled with chiropractor to see if this will release since symptomatic treatment has not given her enough relief. I told her to go ahead and proceed with that. I told her I did not want to do two kinds of treatments at the same time so she could go ahead, seen the chiropractor, see what happens. If she has good relief with the chiropractor treatments, she can proceed with that. If not, she is to let me know and will give her a referral to physical therapy. I told her she could try some pain medication and prescription for Darvocet has been given, but I told her that would not be the nursing home pain management option, just using pain med ications, but rather seeing a physical therapist and doing something more definitive. I reviewed theresults of the MRI and CT scan with her and reassured her that there was no radiculopathy at this time. 2. Regarding the low grade fevers and the possibility of breast implant leakage, I told her it wouldbe very hard to assess that and I would refer her to one of the surgeon, namely lDabhi. joann Meredith if she could be of assistance to her. I told her it sometimes it very hard to tract the very minimal leakage. The best option would be is to have it removed and for that she would need to discuss with the surgeon. Patient is agreeable. She would like to see the surgeon to discuss the option of removal and referral has been placed at this time. Total time spent with the patient 45 minutes of that more than 1/2 hour was spent in reassuring her about evaluation and treatment of back pain and also treatment of leaking breast implants. documented in this encounter Plan of Treatment Not on filedocumented as of this encounter Visit Diagnoses Diagnosis Backache, unspecified - Primary Other sign and symptom in breast MYALGIA AND MYOSITIS NOS(aka MYOSITIS) Mylagia and myositis, unspecified documented in this encounter Care Teams Furnace Attendant Relationship Specialty Start Date End Date Urvashi Mccabe MD PCP - General 11/07/04 04/17/05 [facility] [address] [facility] [address] [place] [address] Edwin Rangel MD PCP - General 05/08/04 11/06/[address] [address] Damian Dowell MD PCP - Surgery 05/08/04 03/14/14 [facility] [address] [place] [address] documented as of this encounter
--- OUTSIDE RECORDS SUMMARY | 2022-02-06 08:58 | XMS_ITS | Encounter Summary ---
:1970 Author Organization [facility] Address [address] [place] [address] Care Team Providers Name Role Phone Edwin Rangel MD Primary Care Provider Damian Dowell MD Unavailable Reason for Visit Reason Comments Contraception Encounter Details Date Type Department Care Team Description 07/05/2004 Office Visit [facility], Charisse E, ABSENC E OF MENSTRUATION (Primary Dx); Physicians INITIATE CONTRACEPT [facility] [address] [address] [phone] Social History Tobacco Use Types Packs/Day Years [...] Sign Reading Time Taken Comments Blood Pressure 110/70 07/05/2004 10:30 AM MICROFILM OPERATOR Pulse 80 07/05/2004 10:30 AM MICROFILM OPERATOR Temperature 36.8 ??C (98.2 ??F) 07/05/2004 10:30 AM MICROFILM OPERATOR Respiratory Rate 12 07/05/2004 10:30 AM MICROFILM OPERATOR Oxygen Saturation - - Inhaled Oxygen Concentration - - Weight 75.3 kg (166 lb) 07/05/2004 10:30 AM MICROFILM OPERATOR Height 170.2 cm (5' 7) 07/05/2004 10:30 AM MICROFILM OPERATOR Body Mass Index 26 07/05/2004 10:30 AM MICROFILM OPERATOR documented in this encounter Progress Notes Charisse Vega - 07/05/2004 11:00 AM CST SUBJECTIVE: Here to restart her depo for control. Has been off her medication for 6 months andno menses. Last time it took 12 months to restart menses when she went off her depo. History of painful periods with migraines which have resolved with this contraception. Went to [place] for pap and annual exam 04/2004. Now back in [facility] and requests care here for depo continuation. Reviewed charts. OBJECTIVE: Alert, oriented, well hydrated. Skin turgor normal. External ears and canals clear bilaterally. TM's normal bilaterally. Nose normal without lesions or discharge. Oropharynx normal. Neck supple without palpable adenopathy. Regular rate and rhythm. S1 and S2 normal, no murmurs, clicks, gallops or rubs. No edema or JVD. Chest is clear; no wheezes or rales. Preg: neg ASSESSMENT: 626.0 ABSENCE OF MENSTRUATION (primary encounter diagnosis) Plan: URINE TEST reviewed with patient. V25.02 INITIATE CONTRACEPT NEC Plan: MEDRXYPROGESTER ACETATE INJ today with follow up depo for one year until 04/2005. Will return at that time for her annual exam. 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 Due- September 20- October 04 >> VERONICA HARRY 07/05/2004 10:36 am Pt is here for her Depo Inj. She is unsure of her last period and her last Depo shot was in 01/15. She had a pap in 04/18 at the [facility]. documented in this encounter Plan of Treatment Not on filedocumented as of this encounter Procedures Procedure Name Priority Date/Time Associated Diagnosis Comme nts HCL URINE Routine 07/05/2004 10:45 Absence Of Resu lts for this TEST AM MICROFILM OPERATOR Menstruation procedure are i n the results section. documented in this encounter Results URINE TEST (07/05/2004 10:45 AM MICROFILM OPERATOR) P athologist Signature Test neg [facility] Specific 1.015 [facility] [place] Urine Charisse Vega MD LABORATORY Performing Organization Address City/State/ZIP Code Phon e Number [facility] documented in this encounter Visit Diagnoses Diagnosis Absence of menstruation - Primary General counseling for initiation of oth er contraceptive measures documented in this encounter Care Teams Dock Coordinator Relationship Specialty Start Date End Date Edwin Rangel MD PCP - General 05/08/04 11/06/[address] [address] Damian Dowell MD PCP - Surgery 05/08/04 03/14/14 [facility] [address] [place] [address] documented as of this encounter
--- OUTSIDE RECORDS SUMMARY | 2022-02-06 08:58 | XMS_ITS | Encounter Summary ---
:1970 Author Organization [facility] Address [address] [place] [id number] Care Team Providers Name Role Phone Edwin Rangel MD Primary Care Provider Damian Dowell MD Unavailable Reason for Visit Reason Comments Pelvic Pain left sided pain Encounter Details Date Type Department Care Team Description 05/02/2004 Office Visit [facility] Edwin Rangel, URIN TRACT INFECTION NOS (Primary Dx); System - [place] in ABDOMINAL PAIN LLQ; [facility] ROUTINE HUMAN RESOURCES ANALYST EXAMINATION Practice [address] [place] [phone] [id number] Social History Tobacco Use Types Packs/Day Years Used Date Smoking Tobacco: Former Cigarettes 0.5 7 Quit : 04/02/2004 Alcohol Use Standard Drinks/Week Comments Not Asked 0 (1 standard drink = 0.6 oz pure alcoho l) Sex Assigned at Date Recorded Not on file documented as of this encounter Last Filed Vital Signs Vital Sign Reading Time Taken Comments Blood Pressure 132/78 05/02/2004 8:42 AM WASTEWATER MANAGER Pulse 72 05/02/2004 8:42 AM WASTEWATER MANAGER Temperature 36.2 ??C (97.1 ??F) 05/02/2004 8:42 AM WASTEWATER MANAGER Respiratory Rate - - Oxygen Saturation - - Inhaled Oxygen Concentration - - Weight 77.8 kg (171 lb 8 oz) 05/02/2004 8:42 AM WASTEWATER MANAGER Height - - Body Mass Index 27.27 12/28/2003 11:26 AM CDT documented in this encounter Progress Notes 05/02/2004 8:30 AM WASTEWATER MANAGER Addended by: ANUP ADAMSON on: 05/09/2004,7:24 AM Comment: [employer] Modules accepted: Armando damon Notes I.Left flank and my left ovary complaining of discomfort. Feel it with each breat h. I finished the Septra and still a little smell in my urine. PAST HISTORY includes age 18 renal stone once. Had PID (pelvic inflammatory disease) once also. Current medication is Depo-Provera an d she doesn't think there is any chance of . She has noticed a little blood in the urine, b ut not very much now. No dysuria, frequency or urgency. Vital signs discussed. Abdomen is flat w ith normal bowel sounds. There is no superficial tenderness. There is mild deep tenderness right ov er the left suprapubic area. No palpable tenderness of the colon or small bowel. No hepatosplenome bill. Negative fist percussion. No CVA tenderness or tenderness over either renalregion. Cardiop ulmonary normal. [place] conjunctivae and white sclerae. No problems getting up or down off the exam tab le. Urinalysis was obtained and discussed. She then said she was in need of a Pap smear and desire d to have one done at the time of the pelvic exam and said she needed one to keep her Depo-Provera go ing.She said all of her Pap smears in the past but one had been completely normal and that one had reverted to being normal. External genitalia normal. Vaginal vault is normal including no draina ge or discharge. Cervix appears normal and Pap smear is obtained. Negative Chandelier sign. Uterus is normal size, smooth, mobile,and nontender. Right adnexa is normal size and nontender. Left adn exa is normal size, but is moderately tender. Rectal canal and rectal vault shows no tenderness or abnormal palpable rectal masses. Brown stool. Gait is normal. She said she was having her mammog michael at 10:30 today and decided we would do a CT scan. Dr. Patel subsequently called and recommended a change in the protocol and also asked me if an ultra sound was indicated if he was able to go ahead and do so and I gave him permission. Subsequently information showed the x-ray studies of the abdom en-pelvis showed no renal stone and no significant abnormalities. He thought it was most likely in t he urine and recommended a culture, which was then started. Patient was subsequently notified and came in and talked with me and is willing to start Levaquin one daily while the culture is pending. She said her main concern is being able to sleep at night with the discomfort and after further discu ssion she can take a Demerol each night at bedtime and I did talk with her about possible drowsiness, etc. and not driving after taking one and she said she wouldn't. Family history is negative for t his type of problem. She said she lives close by out by [facility]. She will contact us early Friday afternoon for pending culture and sensitivity results, etc. (over 25 minutes). Edwin middleton M.D./anup documented in this encounter Nursing Notes 05/02/2004 8:30 AM CST >> MARIANNE MEDINA 05/02/2004 8:45 am Pain Questionnaire: Is your visit today because of Pain? YES. Where is the pain located? pelvic. How would you describe the pain? shooting and stabbing. How long have you had the pain? 1 month(s). On a scale of 1-10 with 10 the worst - how would you rate your pain right now? 10. What have you been using to alleviate the pain? Ibuprofen 800 mg Pamphlet given to patient? previously given documented in this encounter Plan of Treatment Not on filedocumented as of this encounter Procedures Procedure Name Priority Date/Time Associated Diagnosis Comme nts ZZCL AFF HCG, QUAL Routine 05/02/2004 9:18 AM Urin Tract Infec tion Results for this URINE WASTEWATER MANAGER Nos procedure are i n the results section. HCL CULTURE, URINE Routine 05/02/2004 9:00 AM Urin Tract Infec tion Results for this WASTEWATER MANAGER Nos procedure are in Abdominal Pain L lq the results Routine Butadiene Converter Utility Operator section. Examination HCL UA MICRO IF Routine 05/02/2004 8:56 AM Urin Tract Infectio n Results for this POSITIVE WASTEWATER MANAGER Nos procedure are i n the results section. CL AFF MICRO Routine 05/02/2004 8:56 AM Urin Tract Infection R esults for this EXAM-URINE WASTEWATER MANAGER Nos procedure are i n the results section. HCL PAP THIN LAYER Routine 05/02/2004 Routine Butadiene Converter Utility Operator Results f or this SCREEN Examination procedure are i n the results section. documented in this encounter Results HCG, QUAL URINE (05/02/2004 9:18 AM WASTEWATER MANAGER) P athologist Signature HCG Qual Urine Negative NEG [facility] Specimen Anatomical Collection Method Collection Time Receive d Time (Source) Location / / Volume Laterality 05/02/2004 9:18 AM 5 9:28 WASTEWATER MANAGER AM WASTEWATER MANAGER Edwin Rangel MD LABORATORY Performing Organization Address City/State/ZIP Code Phon e Number [facility] CULTURE, URINE (05/02/2004 9:00 AM WASTEWATER MANAGER) Patholo gist Method Time Signature Specimen Midstream [facility] Description Urine [facility] Culture Micro No growth [facility] Report status [facility] [id number] Specimen Anatomical Collection Method Collection Time Receive d Time (Source) Location / / Volume Laterality 05/02/2004 9:00 AM 5 2:28 WASTEWATER MANAGER PM WASTEWATER MANAGER Edwin Rangel MD LABORATORY Performing Organization Address City/[facility]/ZIP Code Phon e Number [facility] [place] [address] MICRO EXAM-URINE (05/02/2004 8:56 AM WASTEWATER MANAGER) Analysis Performed At Patho logist Time Signature WBC Urine 0-2 0 - 2 /HPF [facility] RBC Urine 5-10 0 - 2 /HPF [facility] Abnorm Result [facility] Squamous EPI Few FEW /LPF [facility] Specimen Anatomical Collection Method Collection Time Receive d Time (Source) Location / / Volume Laterality 05/02/2004 8:56 AM 5 9:01 WASTEWATER MANAGER AM WASTEWATER MANAGER Edwin Rangel MD LABORATORY Performing Organization Address City/[facility]/ZIP Code Phon e Number [facility] (ABNORMAL) UA MICRO IF POSITIVE (05/02/2004 8:56 AM WASTEWATER MANAGER) Patholo gist Method Time Signature Color Urine Yellow [place] [facility] Appearance Urine Clear [place] [facility] Glucose Urine Negative NEG mg/dL [place] [facility] Bilirubin Urine Negative NEG [place] [facility] Ketones Urine Negative NEG mg/dL [place] [facility] Specific [place] >1.030 1.001 - [place] [facility] Urine 1.035 [facility] Blood Urine Large (A) NEG [place] [facility] pH Urine 5.5 5.0 - 7.0 [place] [facility] pH [facility] Protein Albumin 30 (A) NEG mg/dL [place] [facility] Urine [facility] Urobilinogen 0.2 0.2 - 1.0 [place] [facility] Urine EU/dL [facility] Nitrite Urine Negative NEG [place] [facility] Leukocyte Negative NEG [place] [facility] Esterase Urine [facility] Source Voided Urine [facility] Specimen Anatomical Collection Method Collection Time Receive d Time (Source) Location / / Volume Laterality 05/02/2004 8:56 AM 5 9:01 WASTEWATER MANAGER AM WASTEWATER MANAGER Edwin Rangel MD LABORATORY Performing Organization Address City/State/ZIP Code Phon e Number [facility] A THIN LAYER PAP SCREEN (05/02/2004) athologist Signature PAP [facility] Specimen (Source) Anatomical Location Collection Method / Collectio n Time Received Time / Laterality Volume Specimen from 05/02/2004 uterine cervix (specimen) Impressions [place] [facility] - 05/09/2004 2 :35 PM WASTEWATER MANAGER SZ Narrative [place] [facility] - 05/09/2004 2 :35 PM WASTEWATER MANAGER ?? DATE RECEIVED: ??05-02-04 PROVIDER: CLAIRE SPECIMEN ADEQUACY: ??Satisfactory for ev aluation INTERPRETATION: ??Negative for intraepit helial lesion or malignancy OTHER: ??None COMMENTS AND RECOMMENDATION: ?? Pathologist sign: Electromedical Equipment Repairer sign: ALANNA Merritt(ASCP) Limitations: ??The Pap test is a screeni ng test designed to detect squamous cell carcinoma of the cervix an d its precursors. ??While the Pap test was designed for squamous l esions of the cervix, it may also detect glandular lesions of the cervix. ??It is, however, inaccurate for the detection of endometr ial lesions and should not be used as a primary screening tool to evaluate women with suspected endometrial abnormalities. ??A s a screening test, it has about 5 to 10 percent false-negative res ults. ??This rate appears to be reduced, but not eliminated, by li quid based (thin-layer) Pap tests. ??Therefore, remind your katelin ent to consult you immediately if she experiences any suspi cious signs or symptoms, regardless of her Pap test result. Edwin Rangel MD LABORATORY Performing Organization Address City/State/[facility] Code Phon e Number [facility] [place] [facility] [facility] [place] [address] documented in this encounter Visit Diagnoses Diagnosis Urinary tract infection, site not specif ied - Primary Abdominal pain, left lower quadrant Routine gynecological examination documented in this encounter Care Teams Automobile Locator Relationship Specialty Start Date End Date Edwin Rangel MD PCP - General 05/08/04 11/06/[address] [address] Damian Dowell MD PCP - Surgery 05/08/04 03/14/14 [facility] [address] [place] [id number] documented as of this encounter
--- OUTSIDE RECORDS SUMMARY | 2022-02-06 08:58 | XMS_ITS | Encounter Summary ---
:1970 Author Organization [place] Address [address] [place] [address] Care Team Providers Name Role Phone Edwin Rangel MD Primary Care Provider Damian Dowell MD Unavailable Reason for Visit Reason Comments Other Left flank pain -LLQ pain Encounter Details Date Type Department Care Team Description 05/16/2004 Office Visit [facility] Ritter, Lexis Yoselin, UR INARY FREQUENCY (Primary Dx); System in [place] LABOR RELATIONS DIRECTOR SLEEVE SETTER SAFETY STITCH RW UNKNOWN Urgent Care [facility] [address] [facility] [place], [place] [address] [address] [place], [place] [phone] (Wo rk) Social History Tobacco Use Types Packs/Day Years Used Date Smoking Tobacco: Former Cigarettes 0.5 7 Quit : 04/02/2004 Alcohol Use Standard Drinks/Week Comments Not Asked 0 (1 standard drink = 0.6 oz pure alcoho l) Sex Assigned at Date Recorded Not on file documented as of this encounter Last Filed Vital Signs Vital Sign Reading Time Taken Comments Blood Pressure 148/72 05/16/2004 5:39 PM FARM LOAN INSPECTOR Pulse 100 05/16/2004 5:39 PM FARM LOAN INSPECTOR Temperature 37.4 ??C (99.4 ??F) 05/16/2004 5:39 PM FARM LOAN INSPECTOR Respiratory Rate - - Oxygen Saturation - - Inhaled Oxygen Concentration - - Weight - - Height - - Body Mass Index - - documented in this encounter Progress Notes 05/16/2004 5:30 PM FARM LOAN INSPECTOR SUBJECTIVE: 33 year old female patient of Dr. Rangel who is new to the [facility] here today with an ongoinghistory of left and right low back pain and some left lower abdominal pain. She's had these issues stemming back to March 2004 and prior to that she just had a history of fibromyalgia and irritable bowel syndrome but had no abdominal pain issues. She's been following with Dr. Rangel who ordered a CT scan of her abdomen and pelvis which was essentially normal and an ultrasound of her abdomen which was also normal on the 02 of May. She does have a follow-up appointment with a urologist, Dr. Harris, in [place] on the at 1:30. She reports that she's had chronic blood in her urine since March. There has been no known cause identified for this. She's been treated with multi ple antibiotics Augmentin, Septra and Levaquin and most recently just finished that, but her culture on her urine had been negative, but there is always a moderate to large amount of blood in her urine. For the past 2 days, she's had difficulty sleeping due to this discomfort. If she doesn't move, everything is fine, but any movement causes discomfort. She describes it in her left and lower tory k region in the lumbar region and then in the left lower abdominal area. She denies any history of alcohol or drug abuse. She quit smoking in March. REVIEW OF SYSTEMS: Constitutional: Reports fever, sweats on and off. She's had night sweats for the last 4 to 5 days. ENT: Negative. Respiratory: She's had a dry cough since March. Cardiovascular: Negative. Gastrointestinal: History of irritable bowel syndrome, constipation dominant, fibromyalgia. She usually has a bowel movement every 2 to 5 days. She manages her bowels with taking a lot of fiber. Her appetite has been okay. Genitourinary: Feels like her bladder is not emptying. She's been up at night a couple of times andthis seems to be getting worse with time. She does have a history of pelvic inflammatory disease butthat was back in 1991. She's had one vaginal delivery in 1992. Musculoskeletal: Negative. Neuro: Negative. She also reports since March she's had a milky discharge from her breasts. Her prolactin level was 10, normal is between 3 and 7. This is a new finding for her other than when she was . Shedoes have bilateral breast implants. OBJECTIVE: See Urgent Care for vital signs. The patient is alert, oriented but restless in the examining room. Eyes: Clear. Ears: Tympanic membranes pearly neil, intact and nonerythematous. Throat: Clear. Neck: Without lymphadenopathy. Heart: S1, S2. Regular rate and rhythm. Lungs: Clear bilaterally both anteriorly and posteriorly. Abdomen: Has good bowel sounds noted. To palpation, there is some discomfort noted in the left lower quadrant. Also noted there is a mass in the femoral area. When she bears down, there is a bulge noted that easily reduces with relaxation. This is the point of most discomfort with palpation. LABS: Urinalysis shows a moderate amount of blood. Complete blood count within normal limits. Comprehensive metabolic panel is normal with the exception of a low bilirubin and slightly elevatedALT at 69. Amylase and Lipase are both normal. H. pylori is pending. ASSESSMENT: 1. Abdominal pain left lower quadrant suspect possible femoral hernia and low back pain, left and right. 2. Hematuria. PLAN: Discussed with Aileen the importance of getting in with Urology as soon as possible. Her appointment on the may not be soon enough. Would need to get to the bottom of these problems with the blood in her urine. For the left lower abdominal pain, suspect a possible hernia there, so we will send her to Surgery for evaluation. She has had an abdominal and pelvic CT which it did not show up o n, but on exam is noted. She is given some pain medication, Vicodin 20 tablets, 5/500 to take 1 to 2 every 4 hours as needed for pain and would recommend follow up. ADDENDUM: I gave her a phone call at home and notified her of the lab work and again reiterated the plan of care that she should see Surgery as soon as possible as well as Urology. Lexis Woods CNP/lela Quick Note by: LEXIS WOODS on 05/23/04 at 4:16 PM. Letter sent to patient regarding the result(s). documented in this encounter Nursing Notes 05/16/2004 5:30 PM CST >> WOLF KIMBALL (ALICIA) 05/16/2004 5:42 pm Pain Questionnaire: Is your visit today because of Pain? YES. Where is the pain located? suprapubic. How would you describe the pain? it just hurts. How long have you had the pain? 2 month(s). On a scale of 1-10 with 10 the worst - how would you rate your pain right now? 8. What have you been using to alleviate the pain? nothing Pamphlet given to patient? yes. documented in this encounter Plan of Treatment Not on filedocumented as of this encounter Procedures Procedure Name Priority Date/Time Associated Comments Diagnosis CL AFF CBC WITH Routine 05/16/2004 6:57 PM Urinary Frequ ency Results for this PLATELETS, DIFF FARM LOAN INSPECTOR Rw Unknown procedure ar e in the results section. HCL COMPREHENSIVE Routine 05/16/2004 6:57 PM Urinary Vladimir quency Results for this METABOLIC PANEL FARM LOAN INSPECTOR Rw Unknown procedure ar e in the results section. HCL HELICOBACTER Routine 05/16/2004 6:57 PM Urinary Freq uency Results for this PYLORI PREMA IGG FARM LOAN INSPECTOR Rw Unknown procedure are in the results section. HCL LIPASE Routine 05/16/2004 6:57 PM Urinary Frequ ency Results for this FARM LOAN INSPECTOR Rw Unknown procedure are i n the results section. HCL AMYLASE, SERUM Routine 05/16/2004 6:57 PM Urinary Fr equency Results for this FARM LOAN INSPECTOR Rw Unknown procedure are i n the results section. HCL UA MICRO IF Routine 05/16/2004 5:40 PM Urinary Frequ ency Results for this POSITIVE FARM LOAN INSPECTOR Rw Unknown procedure are i n the results section. ZZCL AFF HCG, QUAL Routine 05/16/2004 5:40 PM Urinary Fr equency Results for this URINE FARM LOAN INSPECTOR Rw Unknown procedure are i n the results section. CL AFF MICRO Routine 05/16/2004 5:40 PM Urinary Frequ ency Results for this EXAM-URINE FARM LOAN INSPECTOR Rw Unknown procedure are i n the results section. documented in this encounter Results HELICOBACTER PYLORI PREMA IGG (05/16/2004 6:57 PM FARM LOAN INSPECTOR) Component Value Ref Test Analysis Performed At [facility] Range Method Time Signature Specimen Serum [facility] Heliobanjer No detectable IgG antibody t o Helicobacter pylori. If current infection is [facility] pylori Antibody suspected, please submit a new specimen in 4 to 6 we inge. [facility] LABS Report status FINAL [id number] [facility] LAB[facility] Specimen Anatomical Collection Method Collection Time Receive d Time (Source) Location / / Volume Laterality 05/16/2004 6:57 PM 5 6:58 FARM LOAN INSPECTOR PM FARM LOAN INSPECTOR Lexis Myrick APRN SLEEVE SETTER SAFETY STITCH LABORATORY Performing Organization Address City/[facility]/ZIP Code Phon e Number [address] [address] [facility] LABS LIPASE (05/16/2004 6:57 PM FARM LOAN INSPECTOR) athologist Signature Lipase 174 20 - 250 [facility] Specimen Anatomical Collection Method Collection Time Receive d Time (Source) Location / / Volume Laterality 05/16/2004 6:57 PM 5 6:58 FARM LOAN INSPECTOR PM FARM LOAN INSPECTOR Lexis Myrick APRN SLEEVE SETTER SAFETY STITCH LABORATORY Performing Organization Address [facility]/ZIP Code Phon e Number [facility] [address] (ABNORMAL) AMYLASE, SERUM (05/16/2004 6:57 PM FARM LOAN INSPECTOR) athologist Signature Amylase <30 (L) 30 - 110 [facility] Specimen Anatomical Collection Method Collection Time Receive d Time (Source) Location / / Volume Laterality 05/16/2004 6:57 PM 5 6:58 FARM LOAN INSPECTOR PM FARM LOAN INSPECTOR Lexis Myrick APRN SLEEVE SETTER SAFETY STITCH LABORATORY Performing Organization Address [facility]/ZIP Code Phon e Number [facility] [address] CBC WITH PLATELETS, DIFF (05/16/2004 6:57 PM FARM LOAN INSPECTOR) [facility] gist Method Time Signature WBC 10.6 4.0 - [facility] 11.0 [facility] 10e9/L RBC Count 4.47 3.8 - 5.2 [facility] 10e12/L [facility] Hemoglobin 13.4 11.7 - [facility] 15.7 g/dL [facility] Hematocrit 40.6 35.0 - [facility] 47.0 % [facility] MCV 91 78 - 100 [facility] fl [facility] MCH 30.0 26.5 - [facility] 33.0 pg [facility] MCHC 33.1 32.0 - [facility] 36.0 g/dL [facility] RDW 14.3 10.0 - [facility] 15.0 % [facility] Platelet Count 315 150 - 450 [facility] 10e9/L [facility] Diff Method Automated [facility] Method [facility] % Neutrophils 63 40 - 75 % [facility] % Lymphocytes 24 20 - 48 % [facility] % Monocytes 7 0 - 12 % [facility] % Eosinophils 5 0 - 6 % [facility] % Basophils 1 0 - 2 % [facility] Absolute 6.7 1.6 - 8.3 [facility] Neutrophil 10e9/L [facility] Absolute 2.6 0.8 - 5.3 [facility] Lymphocytes 10e9/L [facility] Absolute 0.8 0.0 - 1.3 [facility] Monocytes 10e9/L [facility] Absolute 0.5 0.0 - 0.7 [facility] Eosinophils 10e9/L [facility] Absolute 0.1 0.0 - 0.2 [facility] Basophils 10e9/L [facility] Specimen Anatomical Collection Method Collection Time Receive d Time (Source) Location / / Volume Laterality 05/16/2004 6:57 PM 5 6:58 FARM LOAN INSPECTOR PM FARM LOAN INSPECTOR Lexis Myrick APRN SLEEVE SETTER SAFETY STITCH LABORATORY Performing Organization Address City/State/ZIP Code Phon e Number [facility] [address] (ABNORMAL) A.M.A. COMPREHENSIVE MET.PANEL (05/16/2004 6:57 PM FARM LOAN INSPECTOR) [facility] gist Method Time Signature Sodium 138 133 - 144 [facility] mmol/L [facility] Potassium 4.1 3.4 - 5.3 [facility] mmol/L [facility] Chloride 101 94 - 109 [facility] mmol/L [facility] Carbon Dioxide 27 20 - 32 [facility] mmol/L [facility] Anion Gap 10 6 - 17 [facility] mmol/L [facility] Glucose 104 60 - 110 [facility] mg/dL [facility] Urea Nitrogen 7 5 - 24 [facility] mg/dL [facility] Creatinine 0.74 0.60 - [facility] 1.30 mg/dL [facility] GFR Estimate >80 >60 [facility] mL/min/1.7 [facility] m2 GFR Estimate If >80 >60 [facility] Black mL/min/1.7 [facility] m2 Calcium 8.8 8.5 - 10.4 [facility] mg/dL [facility] Bilirubin Total <0.1 (L) 0.2 - 1.3 [facility] mg/dL [facility] Albumin 3.7 3.3 - 4.6 [facility] g/dL [facility] Protein Total 7.1 6.0 - 8.2 [facility] g/dL [facility] Alkaline 91 50 - 136 [facility] Phosphatase U/L [facility] ALT 69 (H) 0 - 50 U/L [facility] AST 32 0 - 37 U/L [facility] Specimen Anatomical Collection Method Collection Time Receive d Time (Source) Location / / Volume Laterality 05/16/2004 6:57 PM 5 6:58 FARM LOAN INSPECTOR PM FARM LOAN INSPECTOR Lexis Myrick APRN SLEEVE SETTER SAFETY STITCH LABORATORY Performing Organization Address City/State/ZIP Code Phon e Number [facility] [address] (ABNORMAL) MICRO EXAM-URINE (05/16/2004 5:40 PM FARM LOAN INSPECTOR) [facility] gist Method Time Signature WBC Urine 0-2 0 - 2 [facility] /HPF [facility] RBC Urine 5-10 0 - 2 [facility] Abnorm Result /HPF [facility] Squamous EPI Few FEW /LPF [facility] Bacteria Urine Few (A) NEG /HPF [facility] Comment NO CULTURE [facility] PER PROTOCOL [facility] Specimen Anatomical Collection Method Collection Time Receive d Time (Source) Location / / Volume Laterality 05/16/2004 5:40 PM 5 5:45 FARM LOAN INSPECTOR PM FARM LOAN INSPECTOR Lexis Myrick APRN SLEEVE SETTER SAFETY STITCH LABORATORY Performing Organization Address City/State/ZIP Code Phon e Number [facility] [place] [address] HCG, QUAL URINE (05/16/2004 5:40 PM FARM LOAN INSPECTOR) P athologist Signature HCG Qual Urine Negative NEG [facility] Specimen Anatomical Collection Method Collection Time Receive d Time (Source) Location / / Volume Laterality 05/16/2004 5:40 PM 5 5:45 FARM LOAN INSPECTOR PM FARM LOAN INSPECTOR Lexis Myrick APRN SLEEVE SETTER SAFETY STITCH LABORATORY Performing Organization Address City/State/ZIP Code Phon e Number [facility] [address] (ABNORMAL) UA MICRO IF POSITIVE (05/16/2004 5:40 PM FARM LOAN INSPECTOR) Patholo gist Method Time Signature Color Urine Yellow [facility] Appearance Urine Clear [facility] Glucose Urine Negative NEG mg/dL [facility] Bilirubin Urine Negative NEG [facility] Ketones Urine Negative NEG mg/dL [facility] Specific [place] 1.010 1.001 - [facility] Urine 1.035 [facility] Blood Urine Moderate (A) NEG [facility] pH Urine 6.5 5.0 - 7.0 [facility] pH [facility] Protein Albumin Negative NEG mg/dL [facility] Urine [facility] Urobilinogen 0.2 0.2 - 1.0 [facility] Urine EU/dL [facility] Nitrite Urine Negative NEG [facility] Leukocyte Negative NEG [facility] Esterase Urine [facility] Source Midstream [facility] Urine [facility] Specimen Anatomical Collection Method Collection Time Receive d Time (Source) Location / / Volume Laterality 05/16/2004 5:40 PM 5 5:45 FARM LOAN INSPECTOR PM FARM LOAN INSPECTOR Lexis Myrick APRN SLEEVE SETTER SAFETY STITCH LABORATORY Performing Organization Address City/State/ZIP Code Phon e Number [facility] [address] documented in this encounter Visit Diagnoses Diagnosis Urinary frequency - Primary RW UNKNOWN Created for RW lab go live documented in this encounter Care Teams Salary Manager Relationship Specialty Start Date End Date Edwin Rangel MD PCP - General 05/08/04 11/06/04 [facility] [address] [address] Damian Dowell MD PCP - Surgery 05/08/04 03/14/[address] [address] documented as of this encounter
--- OUTSIDE RECORDS SUMMARY | 2022-02-06 08:58 | XMS_ITS | Encounter Summary ---
:1970 Author Organization [facility] Address [address] [address] Care Team Providers Name Role Phone Edwin Rangel MD Primary Care Provider Damian Dowell MD Unavailable Reason for Referral - Closed Specialty Diagnoses / Procedures Referred By Contact Refer red To Contact Diagnoses Backache, unspecified Urvashi Mccabe MD [facility] [address] [place] [address] Fax: Referral ID Status Reason Start Date Expiration Date Visits Requ ested Visits Authorized [id number] Closed 10/30/2004 04/13/2011 1 1 Reason for Visit Reason Onset Date Comments Refill Request 10/30/2004 gregory Encounter Details Date Type Department Care Team Description 10/30/2004 Refill [facility] [place], Refill Re quest System in [place] MD Urvashi (gregory) Internal Medicine [facility] [address] [place] [address] [place], [place] [address] (Wo rk) Social History [...] Notes Telephone Encounter - Yesi Goss - 10/30/2004 1:40 PM CDT Patient contacted with information. Telephone Encounter - Urvashi Lowery MD - 10/30/2004 11:36 AM CDT Pt referal placed. Telephone Encounter - Yesi Goss - 10/30/2004 10:25 AM CDT Patient called and tried to work on Friday-unable to move again. Would like a refill of pain med andreferral to PT. Patient also has been taking 2 percodan at a time instead of 1 as 1 would not touch pain. Still seeing chiropracter. Uses [facility]. documented in this encounter Plan of Treatment Not on filedocumented as of this encounter Visit Diagnoses Diagnosis Backache, unspecified - Primary documented in this encounter Care Teams Business Division Chair Relationship Specialty Start Date End Date Edwin Rangel MD PCP - General 05/08/04 11/06/[address] [address] Damian Dowell MD PCP - Surgery 05/08/04 03/14/14 [facility] [address] [place] [address] documented as of this encounter
--- OUTSIDE RECORDS SUMMARY | 2022-02-06 08:58 | XMS_ITS | Encounter Summary ---
:1970 Author Organization [facility] Address [address] [place] [address] Care Team Providers Name Role Phone Edwin Rangel MD Primary Care Provider Damian Dowell MD Unavailable Reason for Visit Reason Comments Consult PT. WAS SEEN IN FOR POSS LEFT ING HERNIA Encounter Details Date Type Department Care Team Description 05/17/2004 Office Visit [facility] Damian Dowell, [facility] System in [place]m Ramírez MD (Primary Dx) Surgery [address] SPECIALTY [address] [address] [place] [address] (Wo rk) Social History Tobacco Use Types Packs/Day Years Used Date Smoking Tobacco: Former Cigarettes 0.5 7 Quit : 04/02/2004 Alcohol Use Standard Drinks/Week Comments Not Asked 0 (1 standard drink = 0.6 oz pure alcoho l) Sex Assigned at Date Recorded Not on file documented as of this encounter Last Filed Vital Signs Vital Sign Reading Time Taken Comments Blood Pressure 120/68 05/17/2004 3:36 PM MACHINE SPLITTER Pulse - - Temperature 36.4 ??C (97.6 ??F) 05/17/2004 3:36 PM MACHINE SPLITTER Respiratory Rate - - Oxygen Saturation - - Inhaled Oxygen Concentration - - Weight - - Height - - Body Mass Index - - documented in this encounter Progress Notes 05/17/2004 3:30 PM MACHINE SPLITTER Addended by: ABHILASH ADAMSON on: 05/23/2004 10:12:52 AM Comment: Automotive Parts Advisor. SUBJECTIVE: Aileen is a 33-year-old female seen in consultation from Dayan Woods for evaluation of left groin pain and question of a left inguinal hernia. Aileen has been going through quite a bit of pain syndrome with low back pain, left groin pain, and hematuria. She had a CT scan recently, which showed nointra- abdominal masses, and urinalyses that showed blood and also bacteria. She has had multipl e antibiotic treatments. The hematuria has not cleared. She is scheduled to see Urology in [place] in about two weeks' time. Her low back pain seems to be dissipating, but she has groin pain. It is at a single spot; she can put her finger on it. It is on the lateral aspect of the lower part of the left rectus sheath and theleft groin. It is worse with activity. It is worse with moving from a sitting to a standing position. She saw Dayan for followup of some laboratory work, and Dayan questioned a hernia in that spot. The patient has had no obstructive symptoms. ALLERGIES: No allergies. MEDICATIONS: Include Wellbutrin and Seroquel. MEDICATION HISTORY: Medical conditions include irritable bowel syndrome and fibromyalgia. Her fibromyalgia symptoms are joints, shoulders, hips, knees, and elbows. SURGICAL HISTORY: She had breast augmentation. She also had her tonsils and adenoids removed. SOCIAL HISTORY: She is not working at this time. She is at home with children. She is a nonsmoker for the past month. She rarely uses alcohol. REVIEW OF SYSTEMS: CARDIAC: Negative. RESPIRATORY: Negative. NEUROLOGIC: She has had the low back pain. The groin pain on the left side started at the time of the low back pain. She can't document any injury. Otherwise, please see History of Present Illness. GENITOURINARY: Urinary symptoms as above. The remainder of the Review of Systems is unremarkable. OBJECTIVE: Today, on examination, a problem-focused examination, her abdomen is soft, nontender, and nondistended on the left side, and moving to the left lower quadrant. Even with palpation of the skin, she hasexquisite tenderness in the supine and upright position. She doesn't like being touched in that leftlower quadrant lateral rectus sheath area. She has some nodularity of the subcutaneous fat; but withsome persistence, I can hold pressure there, and with multiple Valsalva maneuvers, I am not feeling any hernia. No femoral hernias. I took her to the Procedure Room and marked the area of significant tenderness. This area was then anesthetized with a mixture of 1% lidocaine with epinephrine and sodium bicarbonate, 2 milliliters ofthat, and 2 milliliters of .25 percent Marcaine, and 4 milligrams of dexamethasone. This was injected into the area of the trigger point. I then waited about five minutes and repeated the examinat ion.The pain was then gone; and again with multiple Valsalva maneuvers in the supine and upright position, I am not feeling a hernia, but I do feel some of the nodularity of the subcutaneous tissue. I also then went and reviewed the CT. It is noncontrast, but it is fine cuts of the abdomen and pelvis, and there is no evidence of a defect or hernia in this area by CT. ASSESSMENT/PLAN: I related to the patient that by exam, I am not feeling a hernia. By CT, I am not seeing a hernia; and this truly may be a muscular trigger point. She may have recurrence of the pain tonight and into tomorrow, but this may signify a problem with a back injury and the fact that she has had low back pain to go along with this. I wouldn't recommendany surgical exploration of this area at this time. We will set her up for a back evaluation in Orthopedics. She also needs to follow up, first and foremost, with Urology in about 2 weeks' time. If this pain persists or recurs, I asked that she come back in for a repeat examination. Thirty minutes spent with the patient, 20 minutes in discussion. Damian Dowell M.D./abhilash c: Edwin Rangel M.D. Dayan Woods CNP documented in this encounter Nursing Notes 05/17/2004 3:30 PM CST >> GIANNI HERNANDEZ 05/17/2004 3:39 pm Pain Questionnaire: Is your visit today because of Pain? YES. Where is the pain located? LEFT LOWER QUAD.. How would you describe the pain? miserable, penetrating, sharp and tender. How long have you had the pain? 2 month(s). On a scale of 1-10 with 10 the worst - how would you rate your pain right now? 6. What have you been using to alleviate the pain? OTC Ibuprofen Pamphlet given to patient? yes documented in this encounter Plan of Treatment Not on filedocumented as of this encounter Visit Diagnoses Diagnosis Abdominal pain, left lower quadrant - Pr imary documented in this encounter Care Teams Dixonac Operator Relationship Specialty Start Date End Date Edwin Rangel MD PCP - General 05/08/04 11/06/[address] [address] Damian Dowell MD PCP - Surgery 05/08/04 03/14/14 [facility] [address] [place] [address] documented as of this encounter
--- OUTSIDE RECORDS SUMMARY | 2022-02-06 08:59 | XMS_ITS | Encounter Summary ---
:1970 Author Organization [facility] Address [address] [place] [address] Care Team Providers Name Role Phone Unavailable Primary Care Provider Unavailable Reason for Visit Reason Comments Pharyngitis Encounter Details Date Type Department Care Team Description 10/19/2003 Office Visit [facility] Charisse Vega, ACUTE MAXILLARY SINUSITIS (Primary Dx); Physicians MD ACUTE PHARYNGITIS; [address], MYALGIA AND MYOSITIS NOS(aka MYOSITIS) ; [address] [place] [address] [phone] Social History Tobacco Use Types Packs/Day Years Used Date Smoking Tobacco: Every Day Cigarettes 0.5 Alcohol Use Standard Drinks/Week Comments Not Asked 0 (1 standard drink = 0.6 oz pure alcoho l) Sex Assigned at Date Recorded Not on file documented as of this encounter Last Filed Vital Signs Vital Sign Reading Time Taken Comments Blood Pressure 110/70 10/19/2003 9:21 AM CDT Pulse 100 10/19/2003 9:21 AM CDT Temperature 36.2 ??C (97.1 ??F) 10/19/2003 9:21 AM CDT Respiratory Rate 12 10/19/2003 9:21 AM CDT Oxygen Saturation - - Inhaled Oxygen Concentration - - Weight 73.5 kg (162 lb) 10/19/2003 9:21 AM CDT Height 170.2 cm (5' 7) 10/19/2003 9:21 AM CDT Body Mass Index 25.37 10/19/2003 9:21 AM CDT documented in this encounter Progress Notes 10/19/2003 8:50 AM CDT SUBJECTIVE: 33 year old female complaining of sore throat with nasal congestion with ear pain for 2week(s). The patient describes facial pain and fever. The patient denies a history of GI symptoms or fever. Smoking history: yes - 1/2 PPD. Relevant past medical history: positive for attention deficit. OBJECTIVE: The patient appears healthy, alert, no distress and cooperative. EARS: negative NOSE/SINUS: positive findings: mucosa erythematous and swollen, purulent rhinorrhea THROAT: moderate erythema and rapid strep done, neg NECK:Neck supple. No adenopathy. Thyroid symmetric, normal size,, Carotids without bruits. CHEST: Clear ASSESSMENT: 461.0 ACUTE MAXILLARY SINUSITIS (primary encounter diagnosis) Plan: AMOXICILLIN 500 MG OR CAPS, MUCINEX 600 MG OR TB12 Instructions for your sinusitis The sinuses are bony air cavities that are located in the cheek-bone, forehead, and behind the nose. Swelling of these sinuses can block the openings between the sinuses and the nasal passageway not allowing the pus and fluid to drain properly. With proper treatment nasal congestion and other symptoms (except the cough) should gradually improve over the following 14 days. Contact your physician if any of the following happens: 1)Temperature over 102 degrees. 2)Bleeding from the nose 3)Sever headache which does not go away after you have taken aspirin or a prescribed medication 4)Increased swelling over the face 5)Blurred vision To help you feel better, we suggest the followin. Take Sudafed (pseudoephedrine) for your stuffy nose 2. Take Tylenol () for discomfort 3. Drink lots of fluids 4. Use a vaporizer 5. Rest, rest, rest. Strongly urged the patient to quit smoking; discussed the nature of nicotine addiction and the numerous direct health benefits of smoking cessation. Also discussed and encouraged behavioral therapy. 462 ACUTE PHARYNGITIS Plan: STREP A RAPID negative. 729.1 MYALGIA AND MYOSITIS NOS(aka MYOSITIS) Plan: VIOXX 50 MG OR TABS reviewed her medications. documented in this encounter Nursing Notes 10/19/2003 8:50 AM CDT >> VERONICA HARRY 10/19/03 9:01 am Patient has had a sore throat for a bout a week. Questioned patient about current smoking habits. Pt. currently smokes. Advised about smoking cessation. documented in this encounter Plan of Treatment Not on filedocumented as of this encounter Procedures Procedure Name Priority Date/Time Associated Diagnosis Comme nts HCL STREP A RAPID Routine 10/19/2003 9:10 AM Acute Pharyngitis Results for this CDT procedure are i n the results section. documented in this encounter Results STREP A RAPID (10/19/2003 9:10 AM CDT) P athologist Signature Rapid Strep A neg [facility] Screen Charisse Vega MD LABORATORY Performing Organization Address City/State/ZIP Code Phon e Number [facility] documented in this encounter Visit Diagnoses Diagnosis Acute maxillary sinusitis - Primary Acute pharyngitis MYALGIA AND MYOSITIS NOS(aka MYOSITIS) Mylagia and myositis, unspecified Tobacco use disorder documented in this encounter
--- OUTSIDE RECORDS SUMMARY | 2022-02-06 08:59 | XMS_ITS | Encounter Summary ---
:1970 Author Organization [facility] Address [address] [place] [address] Care Team Providers Name Role Phone Unavailable Primary Care Provider Unavailable Encounter Details Date Type Department Care Team Description 09/19/2003 Orders Only [facility], Provider SCAN [place]ATERIN RESULTS Physicians (Primary Dx) [address] [address] Social History Tobacco Use Types Packs/Day Years [...] Name Priority Date/Time Associated Diagnosis Comme nts SCANNED MEDICAL RECORD Routine 09/20/2003 SCANNING RESULTS documented in this encounter Results SCANNED MEDICAL RECORD (09/20/2003) Narrative This result has an attachment that is no t available. Provider Abstract OTHER documented in this encounter Visit Diagnoses Diagnosis SCANNING RESULTS - Primary documented in this encounter
--- OUTSIDE RECORDS SUMMARY | 2022-02-06 08:59 | XMS_ITS | Encounter Summary ---
:1970 Author Organization [facility] Address [address] [place] [address] Care Team Providers Name Role Phone Unavailable Primary Care Provider Unavailable Reason for Visit Reason Comments Fever temp. x4 days, sore throat, fatigue, diarrhea Encounter Details Date Type Department Care Team Description 12/13/2003 Office Visit [facility] Edwin Rangel ACUT E MAXILLARY System - [place] SINUSITIS (Primary Dx) [address] [address] [phone] Social History Tobacco Use Types Packs/Day Years Used Date Smoking Tobacco: Every Day Cigarettes 0.5 7 Alcohol Use Standard Drinks/Week Comments Not Asked 0 (1 standard drink = 0.6 oz pure alcoho l) Sex Assigned at Date Recorded Not on file documented as of this encounter Last Filed Vital Signs Vital Sign Reading Time Taken Comments Blood Pressure 110/70 12/13/2003 1:45 PM CDT Pulse 80 12/13/2003 1:45 PM CDT Temperature 36.3 ??C (97.3 ??F) 12/13/2003 1:45 PM CDT Respiratory Rate - - Oxygen Saturation - - Inhaled Oxygen Concentration - - Weight 77.1 kg (170 lb) 12/13/2003 1:45 PM CDT Height - - Body Mass Index 27.03 11/14/2003 12:46 PM CDT documented in this encounter Progress Notes 12/13/2003 1:45 PM CDT Addended by: ELOY ADAMSON on: 12/16/2003,10:43 AM Comment: Pm Technician Modules accepted: Progress Notes SUBJECTIVE: Has had pressure pointing to both maxillary sinuses over the weekend, an d last night started some unproductive coughing. Is a smoker. Denies any dyspnea or wheezing or gloria h or chest pain.Does have drainage down the back of her throat but no earache. OBJECTIVE: Vital si gns discussed. No acute distress. No rash. No problems getting up or down off the exam table. Pleasa nt personality and smiles appropriately. There is palpable tenderness over both maxillary sinuses but not others. A little bit of minimal thick colored left greater than right rhinitis. Ears, throat - normal. No exudate. No neck or supraclavicular lymphadenopathy palpable. Lungs are clear. Percussio n normal. Heart regular. ASSESSMENT/PLAN: 1. Maxillary sinusitis with secondary drainage, etc, disc ussed. Alternatives discussed. Zithromax which she said she has had before and worked fine without problems. She in the past has had medications bother her stomach. She is currently on Depo Provera and Wellbutrin. lives and works in [facility] near [place]. Edwin Rangel M.D./eloy documented in this encounter Nursing Notes 12/13/2003 1:45 PM CDT >> JENNIFER POSADA 12/13/2003 2:08 pm Pain Questionnaire: Is your visit today because of Pain? NO documented in this encounter Plan of Treatment Not on filedocumented as of this encounter Visit Diagnoses Diagnosis Acute maxillary sinusitis - Primary documented in this encounter
--- OUTSIDE RECORDS SUMMARY | 2022-02-06 08:59 | XMS_ITS ---
:1970 Author Care Team Providers Name Role Phone EUFEMIA BANSAL [facility] Primary Care Provider [phone] Allergies Code Code System Name Reaction Severity Status Onset Adhesive Tape ? ? Active ? 8463748 RxNorm Nickel ? ? Active ? Notes: tape-adhesive porous Medications Name Status Start Date Stop Date ? ? acetaminophen 300 mg-codeine 30 mg tablet Completed ? 01/01/2022 TAKE 1 TABLET BY MOUTH EVERY 4 HOURS NEEDED amoxicillin 500 mg capsule Completed ? 01/01 amoxicillin 875 mg-potassium clavulanate 125 mg tablet Completed ? 01/01/2022 TAKE 1 TABLET BY MOUTH TWICE DAILY FOR 10 DAYS antacid/diphen/lido 111 mouthwas Active ? Not available SWISH AND SPIT 5 ML BY MOUTH FOUR TIMES DAILY NEEDED. MAY COMPOUND / SUBSTITUE IF PRODUCT NOT COVERED azithromycin 250 mg tablet Completed ? 01/01 TAKE 2 TABLETS BY MOUTH FOR 1 DAY THEN TAKE 1 TABLET BY MOUTH DAILY FOR 4 DAYS cephalexin 500 mg capsule Completed ? 2021 chlorhexidine gluconate 0.12 % mouthwash Active ? Not available clotrimazole 10 mg maryanne Active ? Not av ailable TAKE 1 LOZENGE BY MOUTH FIVE TIMES DAILY codeine 10 mg-guaifenesin 100 mg/5 mL oral liquid Completed ? 01/01/2022 TAKE 10 TO 15 ML BY MOUTH EVERY 6 HOURS compound drug Active ? Not available Contour Next Test Strips Active ? Not devaughn ilable cyclobenzaprine 5 mg tablet Active ? Not available TAKE 1 TO 2 TABLETS BY MOUTH THREE TIMES DAILY NEEDED dexamethasone 4 mg tablet Completed ? 2021 diazepam 5 mg tablet Active ? Not availab le duloxetine 20 mg capsule,delayed release Completed ? 01/01/2022 TAKE 2 CAPSULES BY MOUTH EVERY DAY duloxetine 60 mg capsule,delayed release Active ? Not available TAKE 1 CAPSULE BY MOUTH EVERY DAY esomeprazole magnesium 20 mg capsule,delayed release Active ? Not available TAKE 1 CAPSULE BY MOUTH EVERY DAY FOR STOMACH ACID OR REFLUX gabapentin 100 mg capsule Completed ? 2021 TAKE 1 TO 3 CAPSULES BY MOUTH THREE TIMES DAILY FOR BACK PAIN hydrocodone 5 mg-acetaminophen 325 mg tablet Active ? Not available ibuprofen 600 mg tablet Active ? Not avai lable TAKE 1 TABLET BY MOUTH EVERY 4-6 HOURS AND NOT TO EXCED 4 IN A DAY ketorolac 10 mg tablet Completed ? 2 lidocaine 5 % topical patch Active ? Not available APPLY 1 PATCH DAILY 12 HOURS ON THEN 12 HOURS OFF meloxicam 15 mg tablet Completed ? 2 TAKE 1 TABLET BY MOUTH DAILY metformin ER 500 mg tablet,extended release 24 hr Active ? Not available TAKE 2 TABLETS BY MOUTH EVERY DAY IN THE MORNING metoprolol succinate ER 50 mg tablet,extended release 24 hr Acti ve ? Not available TAKE 1 TABLET BY MOUTH DAILY FOR HYPERTENSION Microlet Lancet Active ? Not available USE TO TEST BLOOD SUGAR TWICE DAILY montelukast 10 mg tablet Completed ? 022 TAKE 1 TABLET BY MOUTH AT BEDTIME oxycodone 5 mg tablet Completed ? 01/01/2022 TAKE 1 TO 2 TABLETS BY MOUTH EVERY 4 TO 6 HOURS NEEDED prednisone 20 mg tablet Active ? Not avai lable TAKE 1 TABLET BY MOUTH TWICE DAILY Pulmicort Flexhaler 180 mcg/actuation breath activated Completed ? 01/01/2022 INHALE 1 PUFF BY MOUTH TWICE DAILY Retin-A 0.1 % topical cream Active ? Not available APPLY TOPICALLY TO THE AFFECTED AREA AT BEDTIME spironolactone 50 mg tablet Active ? Not available TAKE 1 TABLET BY MOUTH TWICE DAILY varenicline 0.5 mg tablet Completed ? 2021 DAYS 1-3 TAKE 1 TABLET BY MOUTH ONCE DA [place] THEN DAYS 4-7 TAKE 1 TABLET BY MOUTH TWICE DAILY varenicline 1 mg tablet Completed ? 01/02/20 22 START DAY 8 AND TAKE 1 TABLET BY MOUTH TWICE DAILY FOR 11 WEEKS Ventolin HFA 90 mcg/actuation aerosol inhaler Active ? Not available INHALE 2 PUFFS BY MOUTH EVERY 4 HOURS NEEDED Problems Name Status Onset Date Source ? Microscopic Hematuria Active 05/23/2016 History Procedures Date Name Performed by ? ? Thyroidectomy Information not avai lable ? Oophorectomy Information not avai lable ? Orthopedic Surgery Information not avai lable 01/01/2022 CT, Abdomen + Pelvis, W/ Contrast [facility] [address] [place] [address] (Work Place) Results Lab Results Date Name Specimen Result Interpretation Description Value Range Status Address ? 01/01/2022 Urinalysis, ? Color-Status Yellow ? ? [facility]: [address] [place] ? ? ? Clarity-Status Clear ? ? [facility]: [address] ? ? ? Glucose-Status Negative ? ? [facility]: [address], [place] ? ? ? Bilirubin-Statu Negative ? ? [facility]: [address], [place] ? ? ? Ketones-Status Negative ? ? [facility]: [address], [place] ? ? ? Sp 1.020 ? ? [facility]: [address], [place] ? ? ? pH-Status 5.5 ? ? [facility]: [address], [place] ? ? ? Urobilinogen-St 0.2 ? ? [facility]: [address], [place] ? ? ? Nitrates-Status negative ? ? [facility]: [address], [place] ? ? ? Blood-Status Negative ? ? [facility]: [address], [place] ? ? ? Leuko-Status Negative ? ? [facility] [address], [place] ? ? ? Specimen Type Voided ? ? [facility] [address], [place] ? ? ? Performed by Eufemia Frey ? ? [facility]: [address], [place] ? ? ? Total Urine 20cc ? ? [facility]: [address], [place] 01/01/2022 Urinalysis, ? No observation ? ? ? Dipstick recorded. Past Encounters 01/01/2022 Microscopic Hematuria; Genuine Stress In continence; Overactive Bladder Flavio Morales MD: [address], [place] [address], Ph. Social History Tobacco Smoking Status Heavy Tobacco Smoker (1 pack per day) Vaccine List None recorded. Plan of Care Reminders Provider Appointments None recorded. ? ? Lab None recorded. ? ? Referral None recorded. ? ? Procedures None recorded. ? ? Surgeries None recorded. ? ? Imaging None recorded. ? ? Vitals Height Weight BMI 5 ft 6.5 in 181 lbs 28.8 kg/m2
--- OUTSIDE RECORDS SUMMARY | 2022-02-06 08:59 | XMS_ITS | Encounter Summary ---
:1970 Author Organization [facility] Address [address] [place] [address] Care Team Providers Name Role Phone Devin Britt DO Primary Care Provider Urvashi Mccabe MD Primary Care Provider Edwin Rangel MD Primary Care Provider Damian Dowell MD Unavailable Collin Singh MD Unavailable Unavailable Fr[facility], None Primary Care Provider Unavailable Allison Smyth Primary Care Provider Encounter Details Date Type Department Care Team Description 07/27/2003 [facility] Provider, MD Toya Social History Tobacco Use Types Packs/Day Years Used Date Smoking Tobacco: Never Assessed Sex Assigned at Date Recorded Not on file documented as of this encounter Plan of Treatment Not on filedocumented as of this encounter Visit Diagnoses Not on filedocumented in this encounter Care Teams Police Stenographer Relationship Specialty Start Date End Date Devin Britt DO PCP - General 04/18/05 09/04/11 [place] [address] Urvashi Mccabe MD PCP - General 11/07/04 04/17/05 [facility] [address] [facility] [address] [place] [address] Edwin Rangel MD PCP - General 05/08/04 11/06/[address] [address] Damian Dowell MD PCP - Surgery 05/08/04 03/14/[address] [address] Collin Singh MD PCP - Orthopaedics 01/23/0602/19/18 [facility], None PCP - General Family Practice 09/05/11 09/18/13 Allison Smyth PCP - General Family Practice 09/19/13 08/27/20 documented as of this encounter
--- OUTSIDE RECORDS SUMMARY | 2022-02-06 08:59 | XMS_ITS | Encounter Summary ---
:1970 Author Organization [facility] Address [address] [place] [address] Care Team Providers Name Role Phone Unavailable Primary Care Provider Unavailable Encounter Details Date Type Department Care Team Description 08/26/2003 Office Visit [facility] Ana Paula Day, ABDOMI NAL PAIN GENERALIZED (Primary Dx); Physicians DEPRESSIVE DISORDER NEC(aka DEPRESSION) ; [address] ACNE NEC ; [address] CONTRACEPT[address] MANGMT NEC; [place] [address] JOINT PAIN-LDER [id number] Social History Tobacco Use Types Packs/Day Years Used Date Smoking Tobacco: Every Day Cigarettes 0.5 Alcohol Use Standard Drinks/Week Comments Not Asked 0 (1 standard drink = 0.6 oz pure alcoho l) Sex Assigned at Date Recorded Not on file documented as of this encounter Last Filed Vital Signs Vital Sign Reading Time Taken Comments Blood Pressure 110/68 08/26/2003 10:51 AM CDT Pulse - - Temperature 37 ??C (98.6 ??F) 08/26/2003 10:51 AM CDT Respiratory Rate - - Oxygen Saturation - - Inhaled Oxygen Concentration - - Weight 73.5 kg (162 lb) 08/26/2003 10:51 AM CDT Height - - Body Mass Index - - documented in this encounter Progress Notes 08/26/2003 10:45 AM CDT SUBJECTIVE: Pt here for multiple reasons: 789.07 ABDOMINAL PAIN GENERALIZED (primary encounter diagnosis) Note: Aileen Sloan is an 33 year old female who presents for evaluation of abdominal pain. Characteristics of the pain are as follows: Location: RLQ without radiation Quality: sharp, stabbing and intermittent, lasts 1 hours , happens once e alex 10 days for past 4 -5months, only when constipated Quantity: 6/10 in intensity Chronicity: Onset 5 months ago, stable since Aggravating factors: none Alleviating factors: nothing Associated symptoms: denies melena, brbpr, no weight loss,Family history: negative Review Of Systems Respiratory: negative Cardiovascular: negative Gastrointestinal: as above Genitourinary: negative OBJECTIVE: BP 110/68 Temp (Src) 98.6 (Oral) Wt 162 lbs (73.5kg) LMP 08/24/2003 General appearance: healthy, alert and no distress Hydration: well hydrated Ears: R TM - normal: no effusions, no erythema, and normal landmarks, L TM - normal: no effusions, no erythema, and normal landmarks Nose: normal Oropharynx: normal Neck: normal, supple and no adenopathy Lungs: normal and clear to auscultation Heart: regular rate and rhythm and no murmurs, clicks, or gallops Abdomen: flat, normal bowel sounds. Tenderness: none Masses: none Organomegaly: none Rectal: deferred Plan: IBS with constipation, offered zelnorml to think about, will consider and f/u if continues huyen a problem, use fiber daily along with prn stool softeners, laxatives spraingly. monitor diet, Pt was told to follow-up in 3-4 weeks for re-check 311 DEPRESSIVE DISORDER NEC(aka DEPRESSION) Note: pt to see psychiatrist Plan: WELLBUTRIN XL 150 MG OR TB24, SEROQUEL 100 MG OR TABS, STRATTERA 40 MG OR CAPS 706.1 ACNE NEC Note: refill meds, working well, has tried going off them Plan: BENZACLIN 1-5 % EX GEL, SULFACET-R 10-5 % EX LOTN, WELLBUTRIN XL 150 MG OR TB24, SEROQUEL 100 MG OR TABS, STRATTERA 40 MG OR CAPS V25.09 CONTRACEPTIVE MANGMT NEC Note: wants to re-start depo, preg negative today Plan: MEDRXYPROGESTER ACETATE INJ, URINE TEST Discussed medication in detail including dosing, side effects, and interactions. 719.41 JOINT PAIN-SHLDER Note: Pt with pain in shoulder since lifing heavy object a few days ago. Now can't get shoulder above head without significant pain, no swelling, no forceful injury. Shoulder exam - right shoulder with supraspinatous weakness, ? due to pain, painw ith external and internal rotation but less painful than abduction, no yulisa tenderness, able to abduct to 130 only due to pain. Plan: ice, rom and PT referal for supraspiantous tendonitis documented in this encounter Nursing Notes 08/26/2003 10:45 AM CDT >> LUCIA BUSBY 08/26/03 11:35 am Next Shot Due Between November 10- Nov 24 >> LUCIA BUSBY 08/26/03 11:34 am The following medication was given: MEDICATION: Depo Provera 150mg ROUTE: IM SITE: RUQ - Gluteus LOT #: [id number] Machine Former: [employer] EXPIRATION DATE: 10/2006 [facility] >> MADELIN ALICIA 08/26/03 10:51 am Patient is here for a refill on her Dermatology medications and to get her depo injection. Patient hurt her right shoulder moving and would like this checked out. Patient also has had blackouts and would like to discuss these. documented in this encounter Plan of Treatment Not on filedocumented as of this encounter Procedures Procedure Name Priority Date/Time Associated Diagnosis Comme nts HCL URINE Routine 08/26/2003 11:33 Contraceptive Mangmt Res ults for this TEST AM CDT Nec procedure are in the results section. documented in this encounter Results URINE TEST (08/26/2003 11:33 AM CDT) P athologist Signature Test neg [facility] Specific [facility] [employer] Urine Ana Paula Day MD LABORATORY Performing Organization Address City/State/ZIP Code Phon e Number [facility] documented in this encounter Visit Diagnoses Diagnosis Abdominal pain, generalized - Primary DEPRESSIVE DISORDER NEC(aka DEPRESSION) Depressive disorder, not elsewhere class ified ACNE NEC Other acne Other general counseling and advice for contraceptive management Pain in joint, shoulder region documented in this encounter
--- OUTSIDE RECORDS SUMMARY | 2022-02-06 08:59 | XMS_ITS | Encounter Summary ---
:1970 Author Care Team Providers Name Role Phone Eufemia Garcia Stephen Primary Care Provider [phone] Reason for Visit None recorded. Assessment and Plan 1. Microscopic hematuria -Obtain CT urogram, cysto today normal -Based on 2019 AUA micro-hematuria guide lines, cystoscopy and axial upper tract imaging recommended in patients with micro-hematuria categorized as high-risk for malignancy (strong smoking history, voiding symptoms). -In case of negative results, she would need her next UAcheck in one year and return in 3-5 years unless she develops additional voiding symptoms including gross hematuria -For persistent or recurrent asymptomati c microhematuria after initial negative urologic work-up, repeat evaluation within three to five years should be considered ? urinalysis, dipstick ? CT, abdomen + pelvis, w/ contrast - U rogram phase 2. Genuine stress incontinence -Positive stress test -Could be a candidate for sling, however recently diagnosed with diabetes, current everyday smoker and having back issues -She was given information and will re e valuate in 6 months ? physical therapist referral - referra l for stress incontinece 3. Overactive bladder -Having urgency -DM could be contributing (recently diag nosed, A1C around 6.5%) -Discussed dietary changes and conservat jocelyn measure -Follow up in 6 months after diabetes be tter controlled to reevlaute. Could be a candidate for medications if DMII better controlled. Discussion Note: None recorded.Patient educational handouts: No information available. Plan of Care Reminders Provider Appointments Established 10 06/25/2022 Flavio robles MD 1:20PM Lab Urinalysis, Dipstick 01/01/2022 [facility] Referral Physical Therapist Referral 01/01/2022 [facility] Procedures None recorded. ? ? Surgeries None recorded. ? ? Imaging CT, Abdomen + Pelvis, W/ 01/01/2022 [facility] Contrast Angela Medications Name Start Date ? ? antacid/diphen/lido 111 mouthwas ? SWISH AND SPIT 5 ML BY MOUTH FOUR TIMES DAILY NEEDED. MAY COMPOUND / SUBSTITUE IF PRODUCT NOT COVERED chlorhexidine gluconate 0.12 % mouthwash ? clotrimazole 10 mg maryanne ? TAKE 1 LOZENGE BY MOUTH FIVE TIMES DAILY compound drug ? Contour Next Test Strips ? USE TO TEST TWICE DAILY. cyclobenzaprine 5 mg tablet ? TAKE 1 TO 2 TABLETS BY MOUTH THREE TIMES DAILY NEE DED diazepam 5 mg tablet ? TAKE 1 TABLET BY MOUTH THREE TIMES DAILY NEEDED duloxetine 60 mg capsule,delayed release ? TAKE 1 CAPSULE BY MOUTH EVERY DAY esomeprazole magnesium 20 mg capsule,delayed release ? TAKE 1 CAPSULE BY MOUTH EVERY DAY FOR STOMACH ACID OR REFLUX hydrocodone 5 mg-acetaminophen 325 mg tablet ? ibuprofen 600 mg tablet ? TAKE 1 TABLET BY MOUTH EVERY 4-6 HOURS AND NOT TO EXC ED 4 IN A DAY lidocaine 5 % topical patch ? APPLY 1 PATCH DAILY 12 HOURS ON THEN 12 HOURS OFF metformin ER 500 mg tablet,extended release 24 hr ? TAKE 2 TABLETS BY MOUTH EVERY DAY IN THE MORNING metoprolol succinate ER 50 mg tablet,extended release 24 hr ? TAKE 1 TABLET BY MOUTH DAILY FOR HYPERTENSION Microlet Lancet ? USE TO TEST BLOOD SUGAR TWICE DAILY prednisone 20 mg tablet ? TAKE 1 TABLET BY MOUTH TWICE DAILY Retin-A 0.1 % topical cream ? APPLY TOPICALLY TO THE AFFECTED AREA AT BEDTIME spironolactone 50 mg tablet ? TAKE 1 TABLET BY MOUTH TWICE DAILY Ventolin HFA 90 mcg/actuation aerosol inhaler ? INHALE 2 PUFFS BY MOUTH EVERY 4 HOURS NEEDED Medications Administered None recorded. Vitals Height Weight BMI 5 ft 6.5 in 181 lbs 28.8 kg/m2 Results Lab Results Date Name Specimen Result [...] ? Sp 1.020 ? ? [facility]: [address], [place] ? [...] Type Voided ? ? [facility]: [address], [place] ? ? ? Performed by Eufemia Frey ? ? [facility]: [address], [place] ? ? ? Total Urine 20cc ? ? [facility]: [address], [place] Allergies Code Code System Name Reaction Severity Onset Adhesive Tape ? ? ? [id number] RxNorm Nickel ? ? ? Notes: tape-adhesive porous Problems Name Status Onset Date Source ? Microscopic Hematuria Active 05/23/2016 History Procedures Date Name Performed by ? ? Thyroidectomy Information not avai lable ? Oophorectomy Information not avai lable ? Orthopedic Surgery Information not avai lable 01/01/2022 CT, Abdomen + Pelvis, W/ Contrast [facility] [place] [address] [address] (Work Place) Vaccine List None recorded. Social History Tobacco Smoking Status Heavy Tobacco Smoker (1 pack per day) What was the date of your most recent 01/01/2022 tobacco screening? What is your level of alcohol consumption? None What is your level of caffeine consumption? Heavy Family History Relation Problem Onset Age of Age Notes Father Malignant tumor of (No Information) N/A (No N otes) testis Maternal Grandfather Family history of (No Information) N/A (No Notes) cancer Functional Status Unknown. Past Encounters 01/01/2022 Microscopic Hematuria; Genuine Stress In continence; Overactive Bladder Lioudmila Sitnikova, MD: [address] [facility] [address] , [place] [address], Ph. History of Present Illness Note: <div>51 YO Female here for urgency and microscopic hematuria</div><div>
</div><div><strong>Microscopic Hematuria: </strong></div><div>Hashad chronic microscopic hematuria for 10+ years. Was previously seen by a urologist and had a cysto about 10 years ago. Last UA 03/30/21 with 10-25 RBCs. Denies every having any gross hematuria. UA with moderate blood today. Denies flank, suprapubic, or abdominal pain. </div><div>
</div><div>Denies family history of bladder of kidney cancer. Had a father who at a young age of testicular cancer. </div><div>
</div><div>Currently everyday smoker. PYH 20. </div><div>
</div><div><strong>Stress incontinence:</strong></div><div>Has incontinece with cough and sneeze, very bothersome. Does not use pads during the day. Does not feel any vaginal bulging. </div><div&g t;
</div><div><strong>Urgency: </strong></div><div>Has ongoing feelings of urgency for the past 2-3 years. Denies urge urinary incontinece, but does have touse kegals at times to hold in urine with urge. Frequency x6-10. Nocturia x3. Denies dysuria. </div><div>
</div><div>MedHx:</div><div>-kidney stones</div& gt;<div>-HTN,</div><div>-asthma</div><div>-IBS</div><div>&l t;br></div><div>SurgHx:</div><div>-Left oophorectomy </div><div&g t;
</div><div>ObHx: </div><div>-1 vaginal delivery </div><d iv>
</div><div>UA moderate blood</div><div>PVR 0ml</div><div>Cysto is normal </div><div>Pelvic without atrophy, no POP, but does have positive stress test</div> Review of Systems ? Comprehensive General Adult ROS Reported By: Patient Constitutional: Constitutional: no fever, no chills Eyes: Eyes: no dry eyes, no vision change, no irritation Endocrine: Endocrine: no fatigue, no in creased thirst Cardiovascular: Cardiovascular: no chest raúl n, no palpitations Integumentary: Skin: no rashes, no change i n skin color Respiratory: Respiratory: no wheezing, no cough, no shortness of breath Musculoskeletal: Musculoskeletal: back pain Genitourinary: Genitourinary: no difficulty urinating, urinary loss of control; small amounts of leakage wit h cough/laughing Physical Exam ? Notes: <div>Constitutional: general ly well appearing, NAD</div><div>Eyes: no icterus</div><div>ENT: normo cephalic, atraumatic </div><div>Respiratory: breathing unlabored </div><d iv>Cardiovascular: chest wall symmetric </div><div>GI: abd soft, NT, ND</div><div>Back/Flank: no CVAT bilaterally </div><div>Lymph/Hematologic : no le edema </div><div>Genitourinary: no, atrophy, no POP, but does ballard ve positive stress test</div><div>Skin: well perfused </div><div>Musculos keletal: moves all extremities</div><div>
</ div><div>Neurologic: no focal deficits </div><div>Neuropsychiatric: A&Ox3</div>
--- OUTSIDE RECORDS SUMMARY | 2022-02-06 08:59 | XMS_ITS | Encounter Summary ---
:1970 Author Organization [facility] Address [address] [place] [address] Care Team Providers Name Role Phone Unavailable Primary Care Provider Unavailable Reason for Visit Reason Comments Pharyngitis Encounter Details Date Type Department Care Team Description 10/21/2003 Office Visit [facility] ORAL APHT HAE; Physicians MD Rob NASAL & SINUS DIS NEC [address] XXX RETIRED XXX [address] [place], [place] [address] [place], [place] [phone] (Wo rk) Social History Tobacco Use Types Packs/Day Years Used Date Smoking Tobacco: Every Day Cigarettes 0.5 Alcohol Use Standard Drinks/Week Comments Not Asked 0 (1 standard drink = 0.6 oz pure alcoho l) Sex Assigned at Date Recorded Not on file documented as of this encounter Last Filed Vital Signs Vital Sign Reading Time Taken Comments Blood Pressure 134/72 10/21/2003 12:00 AM CDT Pulse 70 10/21/2003 12:00 AM CDT Temperature 37.2 ??C (98.9 ??F) 10/21/2003 12:00 AM CDT Respiratory Rate - - Oxygen Saturation - - Inhaled Oxygen Concentration - - Weight 73.5 kg (162 lb) 10/21/2003 12:00 AM CDT Height - - Body Mass Index 25.37 10/19/2003 9:21 AM CDT documented in this encounter Progress Notes 10/21/2003 11:30 AM CDT SUBJECTIVE: Aileen Sloan is an 33 year old female who presents for evaluation and treatment of sore throat, swollen glands and cough. Onset 8 days, gradually worsening since that time. she was seen here and started on amoxil but is not improving , indeed she states the throat is moresore now, especially on the right side. Meds as of 10/21/2003: VIOXX 50 MG OR TABS 1 TABLET DAILY AMOXICILLIN 500 MG OR CAPS 1 TAB PO TID (Three times per day) X 10 DAYS MUCINEX 600 MG OR TB12 1 TABLET EVERY 12 HOURS NEEDED BENZACLIN 1-5 % EX GEL apply qhs SULFACET-R 10-5 % EX LOTN apply bid prn WELLBUTRIN XL 150 MG OR TB24 1 TABLET DAILY SEROQUEL 100 MG OR TABS 1 TABLET TWICE DAILY STRATTERA 40 MG OR CAPS 2 CAPSULES EVERY MORNING Review of the patient's allergies finds: No Known Drug Allergies Tobacco Use: Yes Packs/Day: .5 Years: Alcohol Use: Not Asked OBJECTIVE: BP 134/72 Temp (Src) 98.9 (Oral) Wt 162 lbs (73.5kg) LMP Injection General appearance: healthy, alert and no distress Ears: R TM - air/fluid interface, L TM - normal: no effusions, no erythema, and normal landmarks Nose: normal Oropharynx: mild erythema, no exudates present and viral ulcer on the R tonsilar pillar Neck: normal, supple and small, benign anterior cervical nodes bilaterally Lungs: normal and clear to auscultation Heart: regular rate and rhythm and no murmurs, clicks, or gallops 528.2 ORAL APHTHAE 478.1 NASAL & SINUS DIS NEC there is now sign of current bacterial infection. the sore throat is prob secondary tot he viral ulcer. Symptomatic Rx. Continue with current meds. Call or return to clinic prn if these symtoms worsen, fail to improve as anticipated, or if new symptoms develop. documented in this encounter Nursing Notes 10/21/2003 11:30 AM CDT >> LUCIA BUSBY 10/21/03 11:38 am Pt states that her sx of sore throat and earaches is worse. Pt is taking Amoxicillin and it is not helping. documented in this encounter Plan of Treatment Not on filedocumented as of this encounter Visit Diagnoses Diagnosis Oral aphthae Nasal/sinus dis NEC Other diseases of nasal cavity and sinus es documented in this encounter
--- OUTSIDE RECORDS SUMMARY | 2022-02-06 08:59 | XMS_ITS | Clinical Summary ---
:1970 Author Organization [facility] [place] [address] Care Team Providers Name Role Phone Anthony Christy Yap PT Primary Care Provider Allergies No known active allergies Medications Medication Sig Dispensed Refills Start Date End Date Status fluticasone (FLOVENT Inhale 1 Puff by 1 Inhaler 3 01/15/2011 Active HFA) 220 mouth 2 times mcg/Actuation daily. inhaler SUMAtriptan Take 1 tablet by 12 tablet 2 04/30/2011 Active (IMITREX) 50 mg mouth every 2 hours tabletIndications: if needed for Migraine, Migraine. Max dose: unspecified, without 200mg per 24 hrs. mention of intractable migraine without mention of status migrainosus LORazepam (ATIVAN) Take 1 tablet by 30 tablet 0 04/30/2011 Active 0.5 mg Tab mouth every 6 hours if needed. metoprolol succinate Take 50 mg by mouth 0 Active (TOPROL XL) 50 mg once daily. sustained-release tablet albuterol HFA Inhale 1-2 Puffs by 0 Active (PRO-AIR,VENTOLIN,OH mouth 4 times daily OVENTIL) 90 if needed. mcg/actuation inhaler valACYclovir Take 500 mg by 0 Ac tive (VALTREX) 500 mg mouth 3 times tablet daily. PRN only oxyCODONE-acetaminop Take 1-2 tablets by 30 tablet 0 6 Active hen, 5-325 mg, mouth every 4 hours (PERCOCET) 5-325 mg if needed for Pain. per Max acetaminophen tabletIndications: dose: 4000mg in 24 Lateral hrs. epicondylitis of left elbow hydrOXYzine pamoate Take 1 capsule by 30 capsule 0 05/24/2015 Active (VISTARIL) 25 mg mouth every 8 hours capsuleIndications: if needed for Lateral Itching (nausea). epicondylitis of left elbow Active Problems Problem Noted Date Pain medication agreement 07/06/2010 Fibromyalgia 05/15/2010 INSOMNIA NEC 09/03/2000 DEPRESSION, NEUROTIC 09/03/2000 Immunizations Name Administration Dates Next Due Influenza, IIV3 (Age >=3 years) 01/15/2011, 04/27/2010 Td (Age >=7 Years) 01/13/2008 Family History Medical History Relation Name Comments Cancer Father testicular Diabetes Maternal Grandfather Cancer Paternal Grandfather lung Relation Name Status Comments Father Maternal Grandfather Paternal Grandfather Social History Tobacco Use Types Packs/Day Years Used Date Current Every Day Smoker Cigarettes 1 6 Smokeless Tobacco: Never Used Comments: pamphlet given Alcohol Use Standard Drinks/Week Comments Yes 0 (1 standard drink = 0.6 oz pure alcoho l) occasionally once a year Alcohol Habits Answer Date Recorded How often do you have a drink containing Not asked alcohol? How many drinks containing alcohol do you have Not asked on a typical day when you are drinking? How often do you have six or more drinks on Not asked one occasion? Comment: occasionally once a year 03/22/2009 Sex Assigned at Date Recorded Not on file Obstetrics History Para Term AB IAB SAB Ectopic Multiple Living Live Births 2 1 1 0 1 1 0 0 0 1 Date Outcome GA Total Labor/2nd/3rd Weight Sex Delivery Anes PTL Evie A 1 A5 Name Clin Labor Term IAB Last Filed Vital Signs Vital Sign Reading Time Taken Comments Blood Pressure 117/60 05/24/2015 2:50 PM SIEBEL ADMINISTRATOR Pulse 85 05/24/2015 2:50 PM SIEBEL ADMINISTRATOR Temperature 36.3 ??C (97.3 ??F) 05/24/2015 1:41 PM SIEBEL ADMINISTRATOR Respiratory Rate 16 05/24/2015 2:50 PM SIEBEL ADMINISTRATOR Oxygen Saturation 96% 05/24/2015 2:50 PM SIEBEL ADMINISTRATOR Inhaled Oxygen Concentration - - Weight 86.5 kg (190 lb 11.2 oz) 05/24/2015 10:28 AM SIEBEL ADMINISTRATOR Height 167.6 cm (5' 5.98) 05/23/2015 8:44 AM SIEBEL ADMINISTRATOR Body Mass Index 30.79 05/23/2015 8:44 AM SIEBEL ADMINISTRATOR Plan of Treatment Health Maintenance Due Date Last Done Comments COVID-19 vaccine series (#1) 01/11/1970 Tdap 1980 Depression screening for age 12+ 1981 BMI (ht and wt on same day) for 07/13/1987 age 18+ Hepatitis C screening for age 0307/13/1987 18-79 Colonoscopy through age 75 2014 Mammogram for age 45-75 2014 Lipids for age 45-75 05/22/2015 05/22/2010 Tetanus booster 01/12/2018 01/13/2008 Zoster (shingles) series for age 0307/13/2019 50+ (1 of 2) Influenza for age 50-64 12/13/2021 01/15/2011, 04/27/2010 Pap test for age 21-65 05/31/2023 05/31/2020, 05/31/2020, 04/29/2017, Additional history exists Medical Devices Implanted Type Area Internet Project Manager Device Shelf Model / Identifier Expiration Date Ser ial / Lot Ancr Sut 2.4x8.5mm Suturetak Micro W/2-0 [employer] - [id number] Left: Elbow [employer] 01/11/2017 [id number] / Implanted: Qty: 1 on 05/24/2015 by Jon Dumas MD at [facility] / [id number] Results Not on filefrom Last 3 Months Insurance Payer Benefit Plan / Subscriber ID Effective Dates Phone Addre ss Type Group MEDICA [place] MEDICA CHOICE [id number] 2015-Present [address] [address] [place] [address] Advance Directives Latest Code Status on File Code Status Date Activated Date Inactivated Comments Full Code 05/24/2015 1:33 PM 05/24/2015 5:10 PM Full Code 05/24/2015 10:17 AM 05/24/2015 1:33 PM Care Teams Plant Assigner Relationship Specialty Start Date End Date hCristy Cruz PT PCP - General Physical Therapist 05/22/[address] [place] [address]
--- OUTSIDE RECORDS SUMMARY | 2022-02-06 08:59 | XMS_ITS | Encounter Summary ---
:1970 Author Organization [facility] Address [address] [place] [address] Care Team Providers Name Role Phone Unavailable Primary Care Provider Unavailable Encounter Details Date Type Department Care Team Description 11/14/2003 Office Visit [place] Ana Paula Betancourt, ABDOMI NAL PAIN EPIGASTRIC (Primary Dx); Physicians MD [facility] [place] [address] [facility] [address] [place] [address] [phone] Social History Tobacco Use Types Packs/Day Years Used Date Smoking Tobacco: Every Day Cigarettes 0.5 Alcohol Use Standard Drinks/Week Comments Not Asked 0 (1 standard drink = 0.6 oz pure alcoho l) Sex Assigned at Date Recorded Not on file documented as of this encounter Last Filed Vital Signs Vital Sign Reading Time Taken Comments Blood Pressure 130/72 11/14/2003 12:46 PM CDT Pulse 80 11/14/2003 12:46 PM CDT Temperature 36.5 ??C (97.7 ??F) 11/14/2003 12:46 PM CDT Respiratory Rate - - Oxygen Saturation - - Inhaled Oxygen Concentration - - Weight 76.2 kg (168 lb) 11/14/2003 12:46 PM CDT Height 168.9 cm (5' 6.5) 11/14/2003 12:46 PM CDT Body Mass Index 26.71 11/14/2003 12:46 PM CDT documented in this encounter Progress Notes 11/14/2003 12:30 PM CDT SUBJECTIVE: Aileen Christian is an 33 year old female who presents for evaluation of abdominal pain. Characteristics of the pain are as follows: stooling and eating normally. Location: epigastric with radiation to back Quality: burning, pressure and shooting Quantity: 10/10 in intensity Chronicity: Onset 5 hours ago, stable since Aggravating factors: ate bagel and coke this before this started Alleviating factors: nothing Associated symptoms: anorexia Family history: negative There is no previous medical history on file. Review of patient's past surgical history indicates: BREAST SURGERY PROCEDURE UNLISTED Comment: silicone implants REMOVAL OF TONSILS,<12 Y/O Meds as of 11/14/2003: VIOXX 50 MG OR TABS 1 TABLET DAILY BENZACLIN 1-5 % EX GEL apply qhs SULFACET-R 10-5 % EX LOTN apply bid prn WELLBUTRIN XL 150 MG OR TB24 1 TABLET DAILY SEROQUEL 100 MG OR TABS 1 TABLET TWICE DAILY STRATTERA 40 MG OR CAPS 2 CAPSULES EVERY MORNING Review of the patient's allergies finds: No Known Drug Allergies Tobacco Use: Yes Packs/Day: .5 Years: Alcohol Use: Not Asked Review Of Systems Respiratory: pleruitic CP, hurts stomach to take big breath Cardiovascular: negative Gastrointestinal: as above Genitourinary: negative OBJECTIVE: BP 130/72 Pulse 80 Temp (Src) 97.7 (Oral) Ht 5' 6.5 (1.69m) Wt 168 lbs (76.2kg) LMP Injection General appearance: healthy, alert and [...] gallops Abdomen: flat, normal bowel sounds. Tenderness: present, moderate epigastric Masses: none Organomegaly: no hepatosplenomegaly Rectal: negative 789.06 ABDOMINAL PAIN EPIGASTRIC (primary encounter diagnosis) Note: unclear etiology but most likley gastritis, hx of reflux Plan: HEMOGRAM/PLATE/DIFF, X-RAY ABDOMEN 1 VW, VENOUS COLLECTION, HELICOBACTER PYLORI PREMA IGG aciphex for 1 month, Recheck immediately if worsening, or if not resolving in a few days, otherwisePRN. documented in this encounter Nursing Notes 11/14/2003 12:30 PM CDT >> MOISES DOOLEY 11/14/03 1:43 pm The following medication was given: MEDICATION: Depo Provera 150mg ROUTE: IM SITE: LUQ - Gluteus LOT #: [id number] Feed Preparation Operator: [email or web address] EXPIRATION DATE: 08/2006 Next shot due. . >> RAPHAEL BARKSDALE 11/14/03 12:48 pm Pt here for upper stomach and back pain, pt is wondering if it is heartburn, pt is having sob today not feeling well since 8:00am- she has tried otc heartburn medication. Pt states that she had to takeher bra off because of the discomfort. Pt also would like her depo shot while she is here. Questioned patient about current smoking habits. Pt. currently smokes. Advised about smoking cessation. documented in this encounter Plan of Treatment Not on filedocumented as of this encounter Procedures Procedure Name Priority Date/Time Associated Comments Diagnosis HC X-RAY ABDOMEN AP Routine 11/15/2003 8:24 AM Abdominal Pain Results for this VIEW (KUB) CDT Epigastric procedure are i n the results section. HCL HELICOBACTER Routine 11/14/2003 1:17 PM Abdominal Pain Res ults for this PYLORI PREMA IGG CDT Epigastric procedure are in the results section. CL AFF Routine 11/14/2003 1:15 PM Abdominal Pain Results for this HEMOGRAM/PLATE/DIFF CDT Epigastric procedur e are in the results section. HC VENOUS COLLECTION Routine 11/14/2003 12:54 Abdominal Pain PM CDT Epigastric documented in this encounter Results X-RAY ABDOMEN 1 VW (11/15/2003 8:24 AM CDT) Anatomical Region Laterality Modality Other Narrative 11/15/2003 8:24 AM CDT REPORT OF OUTSIDE FILMS FROM: [facility] Patient: ??AILEEN CHRISTIAN Case No: ?? Birthdate: [birth year] Referring Physician: JIGAR Exam Date: 11/14/03 Exam: ??ABDOMEN HISTORY: ?? Epigastric pain. ?? FINDINGS: ?? Single upright abdomen show s normal bowel gas pattern. ??Negative abdomen. Ildefonso Burch M.D. BIANCA/stacie D/T: ??11/14/03 Ana Paula Day MD GENERAL IMAGING HELICOBACTER PYLORI PREMA IGG (11/14/2003 1:17 PM CDT) P athologist Signature Heliobacter neg [facility] pylori Antibody Screen Ana Paula Day MD LABORATORY Performing Organization Address City/State/ZIP Code Phon e Number [facility] (ABNORMAL) HEMOGRAM/PLATE/DIFF (11/14/2003 1:15 PM CDT) Patholo gist Method Time Signature WBC 10.6 4.3 - 11 [facility] thous/CU.MM RBC Count 4.19 (A) 4.2 - 5.4 [facility] Thous/CU.MM Hemoglobin 12.9 12 - 16 [facility] GM/DL Hematocrit 39.2 38 - 47 % [facility] MCV 93.5 82 - 100 FL [facility] MCH 30.7 26 - 33 pg [facility] MCHC 32.9 31 - 36 [facility] PERCENT Platelet Count 285 150 - 375 [facility] 10^9/L % Granulocytes 70.3 % [facility] % Lymphocytes 22.0 % [facility] % Monocytes 7.7 % [facility] Ana Paula Day MD LABORATORY Performing Organization Address City/State/ZIP Code Phon e Number [facility] documented in this encounter Visit Diagnoses Diagnosis Abdominal pain, epigastric - Primary Other general counseling and advice for contraceptive management documented in this encounter
--- OUTSIDE RECORDS SUMMARY | 2022-02-06 08:59 | XMS_ITS | Encounter Summary ---
:1970 Author Organization [facility] Address [address] [place] [address] Care Team Providers Name Role Phone Unavailable Primary Care Provider Unavailable Reason for Visit Reason Comments Headache Encounter Details Date Type Department Care Team Description 12/28/2003 Office Visit [place] [facility] Major Hammonds MIGRA INE NOS W/O MENTN Bell Seymour MD INTRACTABLE (Primary [address]) [address] [place] [address] Social History Tobacco Use Types Packs/Day Years Used Date Smoking Tobacco: Every Day Cigarettes 0.5 7 Alcohol Use Standard Drinks/Week Comments Not Asked 0 (1 standard drink = 0.6 oz pure alcoho l) Sex Assigned at Date Recorded Not on file documented as of this encounter Last Filed Vital Signs Vital Sign Reading Time Taken Comments Blood Pressure 124/80 12/28/2003 11:26 AM CDT Pulse 78 12/28/2003 11:26 AM CDT Temperature 36.8 ??C (98.3 ??F) 12/28/2003 11:26 AM CDT Respiratory Rate - - Oxygen Saturation - - Inhaled Oxygen Concentration - - Weight 77.1 kg (170 lb) 12/28/2003 11:26 AM CDT Height 168.9 cm (5' 6.5) 12/28/2003 11:26 AM CDT Body Mass Index 27.03 12/28/2003 11:26 AM CDT documented in this encounter Progress Notes 12/28/2003 11:30 AM CDT acute migraine started yesterday, did not have her im imitex, failed 4 maxalt, drove herself over today. has sunglasses on , bad headache, her typical migraine, no fever or rigors . plan: toradol 60mg, 100 im tigan, and see in a week. she is new to our office. samples of relpax given also for next headache. she was in office about 1 hr, observed, letter written for work, discussed need to see and discuss migraine issues in depth when over this headache. The patient indicates understanding of these issuesand agrees with the plan. documented in this encounter Nursing Notes 12/28/2003 11:30 AM CDT >> MOISES DOOLEY 12/28/03 1:22 pm The following medication was given: MEDICATION: Toradol 60 mg and Tigan 1 ml ROUTE: IM SITE: LUQ - Gluteus LOT #: [id number] Arnp: [email or web address] EXPIRATION DATE: 15 MAY 2004 >> MOISES DOOLEY 12/28/03 11:27 am Patient is here for migraine. Questioned patient about current smoking habits. Pt. currently smokes. Advised about smoking cessation. documented in this encounter Plan of Treatment Not on filedocumented as of this encounter Visit Diagnoses Diagnosis Migraine, unspecified, without mention o f intractable migraine without mention of status migrainosus - Primary documented in this encounter
--- OUTSIDE RECORDS SUMMARY | 2022-02-06 08:59 | XMS_ITS | Encounter Summary ---
:1970 Author Organization [facility] Address [address] [place] [address] Care Team Providers Name Role Phone Unavailable Primary Care Provider Unavailable Reason for Visit Reason Comments UTI fever, drainage down throat, headache Encounter Details Date Type Department Care Team Description 04/09/2004 Office Visit [facility] Edwin Rangel ACUT E MAXILLARY SINUSITIS; System - [place] in OTHER BACK SYMPTOMS [address] [phone] Social History Tobacco Use Types Packs/Day Years Used Date Smoking Tobacco: Former Cigarettes 0.5 7 Quit : 04/02/2004 Alcohol Use Standard Drinks/Week Comments Not Asked 0 (1 standard drink = 0.6 oz pure alcoho l) Sex Assigned at Date Recorded Not on file documented as of this encounter Last Filed Vital Signs Vital Sign Reading Time Taken Comments Blood Pressure 120/74 04/09/2004 3:29 PM PLANT CONTROL OPERATOR Pulse 88 04/09/2004 3:29 PM PLANT CONTROL OPERATOR Temperature 36.8 ??C (98.2 ??F) 04/09/2004 3:29 PM PLANT CONTROL OPERATOR Respiratory Rate - - Oxygen Saturation - - Inhaled Oxygen Concentration - - Weight 73.8 kg (162 lb 12.8 oz) 04/09/2004 3:29 PM PLANT CONTROL OPERATOR Height - - Body Mass Index 25.88 12/28/2003 11:26 AM CDT documented in this encounter Progress Notes 04/09/2004 2:45 PM PLANT CONTROL OPERATOR Addended by: ERNA ADAMSON on: 04/12/2004,8:39 AM Comment: Marketing Planning Manager Modules accepted: Jacinta horvath Notes SUBJECTIVE: For 17 days she has had slowly worsening problems with runny nose and pr essure pointingover the sinuses. She can feel drainage down her throat when she is trying to sleep a t night. Denies any productive cough. Denies any dyspnea or wheezing. Has had no previous histor y of any belly pain or ulcers. Currently on Depo Provera and denies any chance of . Also h as had a little bit of dysuria, but no frequency or urgency. She has some discomfort pointing over the upper portion of the left sacroiliac joint but no where else and there is tenderness right over t he joint and I told her it very likely is inflammatory because of her infection and she can use heat on it as discussed and prn ibuprofen. Vital signs discussed. No acute distress. No rash. Tenderne ss over both maxillary sinuses but not others. ENT normal. No neck or supraclavicular lymphadenopathy palpable. Lungs are clear. Percussion normal. Heart regular rate and rhythm. ASSESSMENT: Maxillary sinusitis. PLAN: Will start her on Augmentin with discussion about taking after food, possible stoma ch upset, cross-coverage for strep, etc. She said her 12 year old son has had Augmentin before and s he is fairly familiar with the medication. She can use some heat over the left sacroiliac joint prn a s discussed. Edwin Rangel M.D./erna d: 04/09/2004 t: 04/11/2004 documented in this encounter Plan of Treatment Not on filedocumented as of this encounter Procedures Procedure Name Priority Date/Time Associated Diagnosis Comme nts HCL UA MICRO IF Routine 04/09/2004 3:31 PM Other Back Sy mptoms Results for this POSITIVE PLANT CONTROL OPERATOR Acute Maxillary procedure ar e in Sinusitis the results section. CL AFF MICRO Routine 04/09/2004 3:31 PM Acute Maxillary Result s for this EXAM-URINE PLANT CONTROL OPERATOR Sinusitis procedure are in Other Back Symptoms the resu lts section. documented in this encounter Results (ABNORMAL) MICRO EXAM-URINE (04/09/2004 3:31 PM PLANT CONTROL OPERATOR) [facility] Method Time Signature WBC Urine 2-5 0 - 2 [facility] Abnorm Result /HPF [facility] RBC Urine >100 0 - 2 [facility] Abnorm Result /HPF [facility] Squamous EPI Few FEW /LPF [facility] Bacteria Urine Moderate (A) NEG /HPF [facility] Amorphous Moderate (A) NEG /HPF [facility] Urates [facility] Mucous Urine Present (A) NEG /LPF [facility] Specimen Anatomical Collection Method Collection Time Receive d Time (Source) Location / / Volume Laterality 04/09/2004 3:31 PM 4 3:46 PLANT CONTROL OPERATOR PM PLANT CONTROL OPERATOR Edwin Rangel MD LABORATORY Performing Organization Address City/State/ZIP Code Phon e Number [facility] (ABNORMAL) UA MICRO IF POSITIVE (04/09/2004 3:31 PM PLANT CONTROL OPERATOR) [facility] Method Time Signature Color [facility]rine Yellow [facility] Appearance Urine Slightly [facility] Cloudy [facility] Glucose Urine Negative NEG mg/dL [facility] Bilirubin Urine Negative NEG [facility] Ketones Urine Negative NEG mg/dL [facility] Specific [place] >1.030 1.001 - [facility] Urine 1.035 [facility] Blood Urine Large (A) NEG [facility] pH Urine 6.0 5.0 - 7.0 [facility] pH [facility] Protein Albumin Negative NEG mg/dL [facility] Urine [facility] Urobilinogen 1.0 0.2 - 1.0 [facility] Urine EU/dL [facility] Nitrite Urine Negative NEG [facility] Leukocyte Negative NEG [facility] Esterase Urine [facility] Source Midstream [facility] Urine [facility] Specimen Anatomical Collection Method Collection Time Receive d Time (Source) Location / / Volume Laterality 04/09/2004 3:31 PM 4 3:46 PLANT CONTROL OPERATOR PM PLANT CONTROL OPERATOR Edwin Rangel MD LABORATORY Performing Organization Address City/State/ZIP Code Phon e Number [facility] documented in this encounter Visit Diagnoses Diagnosis Acute maxillary sinusitis Other symptoms referable to back documented in this encounter
--- OUTSIDE RECORDS SUMMARY | 2022-02-06 08:59 | XMS_ITS | Encounter Summary ---
:1970 Author Organization [facility] Address [address] [place] [address] Care Team Providers Name Role Phone Unavailable Primary Care Provider Unavailable Reason for Visit Reason Comments Imm/Inj Encounter Details Date Type Department Care Team Description 02/10/2004 Allied Health/Nurse [facility] Jose Day MD Imm/Inj Visit Physicians [address] [address] [address] [place], [place] [address] [place] [address] (Wo rk) [address] [phone] Social History Tobacco Use Types Packs/Day Years Used Date Smoking Tobacco: Every Day Cigarettes 0.5 7 Alcohol Use Standard Drinks/Week Comments Not Asked 0 (1 standard drink = 0.6 oz pure alcoho l) Sex Assigned at Date Recorded Not on file documented as of this encounter Nursing Notes 02/10/2004 3:00 PM CDT >> RAPHAEL BARKSDALE 02/10/04 3:39 pm Vaccine information supplied. >> RAPHAEL BARKSDALE 02/10/04 3:38 pm The following medication was given: MEDICATION: Depo Provera 150mg ROUTE: IM SITE: RUQ - Gluteus LOT #: [id number] Center Maker Hand: [employer] EXPIRATION DATE: 09-18 Pt informed she needs a pap prior to next appt next due: Apr 27 documented in this encounter Plan of Treatment Not on filedocumented as of this encounter Visit Diagnoses Diagnosis Other general counseling and advice for contraceptive management - Primary documented in this encounter
--- OUTSIDE RECORDS SUMMARY | 2022-02-06 08:59 | XMS_ITS | Encounter Summary ---
:1970 Author Organization [facility] Address [address] [place] [address] Care Team Providers Name Role Phone Devin Britt DO Primary Care Provider Urvashi Mccabe MD Primary Care Provider Edwin Rangel MD Primary Care Provider Damian Dowell MD Unavailable Collin Singh MD Unavailable Unavailable Frw, None Primary Care Provider Unavailable Allison Smyth Primary Care Provider Encounter Details Date Type Department Care Team Description 05/09/2000 Historic Results CONVERSION Provider, MD Toya Social History Tobacco Use Types Packs/Day Years Used Date Smoking Tobacco: Never Assessed Sex Assigned at Date Recorded Not on file documented as of this encounter Plan of Treatment Not on filedocumented as of this encounter Procedures Procedure Name Priority Date/Time Associated Diagnosis Comme nts EMG - HIM SCAN - 05/09/2000 8:24 AM SANITATION LEAD ARCHIVE documented in this encounter Results EMG - HIM SCAN - ARCHIVE (05/09/2000 8:24 AM SANITATION LEAD) Specimen (Source) Anatomical Location Collection Method / Collectio n Time Received Time / Laterality Volume Narrative This result has an attachment that is no t available. Toya Provider IP NEUROLOGY ORDERABLES documented in this encounter Visit Diagnoses Not on filedocumented in this encounter Care Teams Nitriles Lab Technician Relationship Specialty Start Date End Date Devin Britt DO PCP - General 04/18/05 09/04/11 [address], [place] [id number] Urvashi Mccabe MD PCP - General 11/07/04 04/17/05 [place] [id number] [facility] [address] [place] [address] Edwin Rangel MD PCP - General 05/08/04 11/06/04 [facility] [address] [place], [place] [id number] Damian Dowell MD PCP - Surgery 05/08/04 03/14/[address] [address] Collin Singh MD PCP - Orthopaedics 01/23/0602/19/18 Frw, None PCP - General Family Practice 09/05/11 09/18/13 Allison Smyth PCP - General Family Practice 09/19/13 08/27/20 documented as of this encounter
--- NOTE | 2022-02-06 09:15 | CRLHL7_ITS ---
For Patients: As a result of the Century Cures Act, medical imaging exams and procedure reports are released immediately into your electronic medical record. You may view this report before your referring provider. If you have questions, please contact your health care provider. Indication: Lumbar spine pain. Technique: T2, T1, and STIR sagittal as well as T1 and T2 axial sequences were obtained. No IV contrast. Comparison: None available. Findings: There are 5 lumbar type vertebral segments identified. The vertebral body heights are maintained without evidence of fracture. No discrete T1 hypointense marrow infiltrating process. The conus medullaris terminates at L1, normal. Cauda equina appears unremarkable. T12-L1: No spinal canal or neural foraminal narrowing. L1-2: Mild disc height loss and desiccation. Minimal disc bulge without spinal canal or neural foraminal narrowing. L2-3: Mild disc height loss and desiccation. Minimal disc bulge without spinal canal or neural foraminal narrowing. Moderate facet arthropathy. L3-4: No spinal canal or neural foraminal stenosis. Mild to moderate facet arthropathy. L4-5: Mild disc height loss and desiccation. Minimal disc bulge without spinal canal narrowing. Mild left neural foraminal narrowing secondary to disc bulge and facet hypertrophy. Mild to moderate facet arthropathy. L5-S1: Mild disc height loss and desiccation. No spinal canal or neural foraminal narrowing. Right foraminal zone annular fissure. Mild facet arthropathy. Impression mild sacroiliac joint osteoarthritis. : 1. At L4-5, mild left neural foraminal narrowing. 2. Mild to moderate multilevel facet arthropathy. 3. Minimal spondylosis at the remaining lumbar levels. Dictated by Schuyler Brewer MD @ 02/06/2022 11:46:50 AM (Electronically Signed)
== END 2022-02-06 08:52 | disposition home or self-care (01) ==
LOC: MRI 08:53
PROVIDERS: PCP Physician Assistant Medical; Visit Provider Family Medicine
DX: M54.50 Low back pain, unspecified (principal); M51.26 Other intervertebral disc displacement, lumbar region; M47.896 Other spondylosis, lumbar region
CPT/HCPCS: 72148

== ENCOUNTER 2022-03-04 14:30 | Outpatient (RCR) | payer OTHER, MEDICAID, SELFPAY ==
--- NOTE | 2021-10-24 14:52 | PT.OPDN ---
PT [facility] Daily Note [facility] Daily [facility] Start: 10/11/21 16:10 Freq: Status: Active Protocol: Document 10/11/21 16:10 LSL (Rec: 10/11/21 16:21 LSL [id number]) E-Signed By Sharla Gonzalez, PT PT OP Daily Progress Note Visit Information Note Type No Charge Visit Number 0 Running Total Visit Number 5 Insurance Authorized Visits 8 Cancellation Note Cancelled Documentation This documentation is for the purpose of transferring information from old EMR to new EMR only. It is not attached to any specific visit or billing. Insurance Information Insurance Name [employer] Insurance Information/Comments [place] [employer] Medical Diagnosis L sided lumbar pain, possibly radiculopathy Treating Diagnosis impaired ROM, impaired transitions, weakness, pain Referring MD Alegre Subjective Subjective Pt. reports she was pretty sore and needed to use ice multiple times after her last session. I had to sit down and take multiple breaks at work yesterday. Pain Comments 08/21 day after exercise, 10/21 last night at work, 08/21 current Precautions Weight Bearing Status Full Weight Bearing Objective Patient Instructed in Risks/Benefits Yes Therapeutic Exercise Therapeutic Exercise Minutes (minutes) 45 Therapeutic Exercise: To Restore elliptical 8.5' CR 4 L1 Functional Status -lumbar extension 30# 1x20, 1x10 -CC row 19# 2x10 -CC lat pull 24# 2x10 -pallof press 7.5# 10x ea -seated flexion/extension 10x -bridge 10x 5 sec hold -leg press 60# 2x10 -plank from knees 5x 10 sec -standing dumbbell hold 10# 10x 5-10 sec -farmers carry 10# 60' each Treatment Minutes Timed Code Treatment Minutes 45 Total Treatment Time 45 Assessment/Impression Assessment/Impression Pt. more painful today after 12.5 hour shift yesterday and had a more difficult time completing her exercises today . Plan of Care Physical Therapy Goals SHORT TERM GOALS: (2-3 weeks) 1. Begin program and be able to tolerate prone on elbows for 30 seconds. 2. Pt. able to tighten core to transition from one position to the next with pain less than 3/10. 3. Pt. able to lift less than 5 pounds floor to waist with pain less than 3/10. [facility] GOALS: (4+ weeks) 1. Pt. able to assist in patient bathing and fold care with pain less than 3/10. 2. Pt. able to go through 75% or greater lumbar ROM with pain less than 3/10. 3. Pt. able to lay on her back with pain less than 3/10. 4. Pt. able to lift 50 pounds from knee height to waist with pain less than 3/10. 5. Pt. to have 3/5 abdominal strength and 5/5 lumbar and hip extensor strength to assist in patient transfers. Daily Plan of Care Continue per POC Daily Plan of Care Comments Ongoing POC to consist of therex, NM re-ed, manual therapy Recertification Information Clinical Certification # #[id number] Patient's H.I.C.N.# # I Certify That I Have Established All Therapy Services/Plan Physician Signature Shows Agreement Dates & Medical Necessity Physician Comment/Change Comment or Changes Physician Signature & Date Please Sign/Date Here Physician NPI Number # Document 10/17/21 15:42 LSL (Rec: 10/17/21 16:49 LSL [id number]) E-Signed By Sharla Gonzalez, PT PT OP Daily Progress Note Visit Information Note Type Daily Note Visit Number 0 Running Total Visit Number 6 Insurance Authorized Visits 8 Insurance Information Insurance Name [employer] Insurance Information/Comments [place] Risk Medical Diagnosis L sided lumbar pain, possibly radiculopathy Treating Diagnosis impaired ROM, impaired transitions, weakness, pain Referring MD Alegre Subjective Subjective Pt. reports she was left alone at work on Friday so I can't do my job with the restrictions they gave me. I couldn't walk this weekend. If I turn either direction I get a sharp stabbing pain and it is now on both sides. Precautions Weight Bearing Status Full Weight Bearing Objective Patient Instructed in Risks/Benefits Yes Therapeutic Exercise Therapeutic Exercise Minutes (minutes) 35 Therapeutic Exercise: To Restore elliptical 9.25' CR 4 L1 Functional Status -lumbar extension 30# 3x10 -CC row 19# 3x10 -CC lat pull 24# 3x10 -pallof press 7.5# 2x10 ea -seated flexion/extension 5# 10x -bridge 10x 10 sec hold -leg press 70# 3x10 -standing dumbbell hold 10# 10x 5-10 sec -farmers carry 10# 120' each -thoracic foam roller Manual Therapy Techniques Manual Therapy Minutes (minutes) 10 Manual Therapy Techniques STM to B LB in sitting Treatment Minutes Timed Code Treatment Minutes 45 Total Treatment Time 45 Billing Units Manual Therapy Units 1 Therapeutic Exercise Units 2 Assessment/Impression Assessment/Impression Pt. continues to struggle with her employer and the tasks she needs to do when she works . Her lumbar paraspinals and QL are extremely tight. She completed more sets of her exercises in less time today. She may benefit from a home H -wave unit which has helped manage her back pain in the past. This might improve ability to work and tolerance to exercise. Plan of Care Physical Therapy Goals SHORT TERM GOALS: (2-3 weeks) 1. Begin program and be able to tolerate prone on elbows for 30 seconds. 2. Pt. able to tighten core to transition from one position to the next with pain less than 3/10. 3. Pt. able to lift less than 5 pounds floor to waist with pain less than 3/10. [facility] GOALS: (4+ weeks) 1. Pt. able to assist in patient bathing and fold care with pain less than 3/10. 2. Pt. able to go through 75% or greater lumbar ROM with pain less than 3/10. 3. Pt. able to lay on her back with pain less than 3/10. 4. Pt. able to lift 50 pounds from knee height to waist with pain less than 3/10. 5. Pt. to have 3/5 abdominal strength and 5/5 lumbar and hip extensor strength to assist in patient transfers. Daily Plan of Care Continue per POC Daily Plan of Care Comments Ongoing POC to consist of therex, NM re-ed, manual therapy Recertification Information Clinical Certification # #[id number] Patient's H.I.C.N.# # I Certify That I Have Established All Therapy Services/Plan Physician Signature Shows Agreement Dates & Medical Necessity Physician Comment/Change Comment or Changes Physician Signature & Date Please Sign/Date Here Physician NPI Number # Document 10/22/21 15:46 LSL (Rec: 10/22/21 16:42 LSL [id number]) E-Signed By Sharla Gonzalez, PT PT OP Daily Progress Note Visit Information Note Type Daily Note Visit Number 7 Insurance Authorized Visits 8 Insurance Information Insurance Name [employer] Insurance Information/Comments [place] Risk Medical Diagnosis L sided lumbar pain, possibly radiculopathy Treating Diagnosis impaired ROM, impaired transitions, weakness, pain Referring MD Alegre Subjective Subjective Pt. reports she had really bad back spasms the night after her last session and it has been really bad all week. We are officially down to one person a shift. I can't lay on either hip and my entire left leg goes numb to where it is affecting the way I walk. Pain Comments /10 best, 9/10 worst Precautions Weight Bearing Status Full Weight Bearing Objective Other/Pertinent Objective AROM lumbar flexion 70%, RLF 50%, LLF 40%, extension 10% STRENGTH - LE R quad 5/5, R HS 4+/5, L quad 5-/5, L HS 5-/5, L hip IR/ER 4/5, R hip IR/ER 5/5, B hip extension 4-/5, B hip abduction 4/5; Trunk upper abdominals 2/5, extensors 2-/ 5 Patient Instructed in Risks/Benefits Yes Therapeutic Exercise Therapeutic Exercise Minutes (minutes) 25 Therapeutic Exercise: To Restore -elliptical 10' CR4 L1 Functional Status -lumbar extension 50# 3x10 with measurements for PN Other Interventions Provided Other Modalities Provided Prone position H-wave F10 setting in upper lumbar and sacral regions 15' with gradual self adjustment to tolerance Treatment Minutes Untimed Code Treatment Minutes 15 Timed Code Treatment Minutes 25 Total Treatment Time 40 Billing Units Therapeutic Exercise Units 2 Electrical Stimulation Units 1 Assessment/Impression Assessment/Impression Pt. has gained ROM and hip strength but without significant change in muscle tension in her back, or trunk strength. She has done her therapy which includes lliptical, lumbar extension, cable row, lat pull, pallof press, seated flexion/ extension, bridge, leg press, standing dumbbell hold and a farmers carry. Her work continues to be a significant source of stress and she feels an obligation to the clients to do her job even if it causes her pain, so this is creating a difficult situation . Her tolerance to the exercise program when she was off work was better. She would benefit from continuing with her PT program as it has improved her range and hip strength, but is still lacking in trunk strength. [ End ] Plan of Care Physical Therapy Goals SHORT TERM GOALS: (2-3 weeks) 1. Begin program and be able to tolerate prone on elbows for 30 seconds. 2. Pt. able to tighten core to transition from one position to the next with pain less than 3/10. 3. Pt. able to lift less than 5 pounds floor to waist with pain less than 3/10. [facility] GOALS: (4+ weeks) 1. Pt. able to assist in patient bathing and fold care with pain less than 3/10. 2. Pt. able to go through 75% or greater lumbar ROM with pain less than 3/10. 3. Pt. able to lay on her back with pain less than 3/10. 4. Pt. able to lift 50 pounds from knee height to waist with pain less than 3/10. 5. Pt. to have 3/5 abdominal strength and 5/5 lumbar and hip extensor strength to assist in patient transfers. Daily Plan of Care Continue per POC Daily Plan of Care Comments Ongoing POC to consist of SHAMEKA robb re-ed, manual therapy Recertification Information Clinical Certification # #[id number] Patient's H.I.C.N.# # I Certify That I Have Established All Therapy Services/Plan Physician Signature Shows Agreement Dates & Medical Necessity Physician Comment/Change Comment or Changes Physician Signature & Date Please Sign/Date Here Physician NPI Number #
== END 2022-04-18 15:42 | disposition home or self-care (01) ==
PROVIDERS: Visit Provider Family Medicine
DX: M54.50 Low back pain, unspecified (principal); Z51.89 Encounter for other specified aftercare
CPT/HCPCS: 97032; 97110; 97112; 97140

== ENCOUNTER 2022-04-22 08:03 | Emergency (ER) | payer MEDICAID, SELFPAY ==
[2022-04-22 08:07] VITALS: BP 136/102; PULSE 103; RESP 14; TEMP 36.1; O2SAT 99; BMI 29.1
--- NOTE | 2022-04-22 08:49 | ED_ITS ---
HPI - General Adult General Chief complaint: Fall/Minor Trauma Stated complaint: fall yesterday/unable to take deep breath Time Seen by Provider: 04/22/22 08:15 History of Present Illness HPI narrative: This 51-year-old female comes in for evaluation of the chest wall injury that occurred yesterday. She slipped on ice and fell on her left anterior lower ribs. She has breast implants and has pain also in her left breast. She did not have loss of consciousness. She did bump her head but does not complain of any pain elsewhere except for minor discomfort in her left elbow. She states that she has pain when taking a deep breath. Pain is also reproducible when pressing in the left lower anterior ribs just below her breast. Related Data Home Medications Medication Instructions Recorded Confirmed metoprolol succinate 50 mg 50 mg PO DAILY 10/18/21 04/22/22 tablet,extended release 24 hr nystatin 100,000 unit/gram topical 1 applic topical .2-3X/Day 11/22/21 04/22/22 cream spironolactone 50 mg tablet 50 mg PO DAILY 04/22/22 04/22/22 Previous Rx's Medication Instructions Recorded diazepam 5 mg tablet (Valium) 5 mg PO TID PRN muscle spasm #30 11/22/21 tabs esomeprazole magnesium 20 mg 20 mg PO QDAY #90 caps 11/26/21 capsule,delayed release (Nexium) metformin 500 mg tablet,extended 1,000 mg PO QDAY #180 tabs 12/10/21 release 24 hr spironolactone 50 mg tablet 50 mg PO BID #60 tabs 12/13/21 albuterol sulfate 90 mcg/actuation 2 puff inhalation Q4H PRN 02/13/22 aerosol inhaler (Ventolin HFA) bronchospasm #8.5 grams hydrocodone 5 mg-acetaminophen 325 1 tab PO Q4-6H PRN pain #15 tabs 04/22/22 mg tablet ketorolac 10 mg tablet 10 mg PO Q8H 5 days #15 tabs 04/22/22 ondansetron 4 mg disintegrating 4 mg PO Q6H #10 tabs 04/22/22 tablet Allergies Allergy/AdvReac Type Severity Reaction Status Date / Time latex Allergy Mild Rash Verified 02/21/22 10:19 nickel Allergy Unknown Rash Verified 02/21/22 10:19 hydrocodone AdvReac Intermediate Nausea Verified 02/21/22 10:19 Molds & Smuts Allergy Mild Congestion, Uncoded 02/21/22 10:19 cough Pollen Allergy Mild Unknown Uncoded 02/21/22 10:19 Review of Systems Status of ROS: Reports: 10 or more systems reviewed and unremarkable except as noted in History and below Narrative: Constitutional: No fevers, no weight gain or loss. Eyes: No discharge. No vision changes. HENT: No congestion, no sore throat, no ear pain. Cardiovascular: No palpitations. Chest: Tenderness in the ribs just below the left breast and including the left breast. Respiratory: No shortness of breath, no wheezes, no cough. Gastrointestinal: No abdominal pain, no vomiting, no diarrhea. Genitourinary: No dysuria, no hematuria. Musculoskeletal: Normal range of motion. Skin: No rashes, no pruritis. Neurological: No dizziness, weakness, sensory change, speech change. Endo/Heme/Allergies: No bruising or bleeding. No polydipsia. Pysch: no suicidality, no anxiety, no insomnia. All other systems reviewed and are negative. [facility] Medical History (Updated 04/22/22 @ 08:52 by Beny Mathews MD) COVID-19 Low back pain Surgical History History of carpal tunnel release of both wrists History of left salpingo-oophorectomy History of third molar tooth extraction Status post arthroscopy of right knee (07/11/09) Status post breast augmentation (07/11/09) Status post cholecystectomy Status post tonsillectomy (07/11/09) Family History Uncle Colon cancer Mother High blood pressure Father Testicular cancer Family/Other Lung cancer Other Alcoholism Social History Narrative: Cigarette smoker, age 16 1ppd Smoking Status: Current every day smoker Exam Narrative: Exam Narrative: Constitutional: Well-developed, well-nourished, no acute distress. HEENT: Normocephalic, atraumatic. Neck: Normal range of motion. Nontender. Supple. Heart: Regular. No murmurs. Normal rate. Intact distal pulses. Lungs: Clear to auscultation. No wheezes, rhonchi, or rales. Chest: Distinct tenderness is reproduced when palpating on the ribs just below the left breast. There is also tenderness in the left breast. There is no sign of external injury. Abdomen: Normal bowel sounds. Nontender. No rebound tenderness. Genitalia: Deferred. Back: No midline tenderness. Normal range of motion. Extremities: Normal range of motion. No injury. Skin: Intact. No rash. Warm. No erythema or pallor. Neurologic: No altered sensation. No weakness. Alert and oriented. Psychiatric: No suicidality. No anxiety or depression. No insomnia. Nursing notes and vitals signs are reviewed. Const: Vital Signs, click to edit/add: Vital Signs - 24 hr 04/22/22 08:07 Temperature 97.0 F L Pulse Rate [Right Pulse Oximeter] 103 H Respiratory Rate 14 Blood Pressure [Ri ght Upper Arm] 136/102 H Pulse Oximetry 99 Oxygen Delivery Me thod Room Air Course Vital Signs Vital signs: Initial Vital Signs Temperature 97.0 F L 04/22/22 08:07 Temperature Source Temporal Artery Scan 04/22/22 08:07 Pulse Rate 103 H 04/22/22 08:07 Respiratory Rate 14 04/22/22 08:07 Blood Pressure 136/102 H 04/22/22 08:07 Blood Pressure Mean 113 04/22/22 08:07 Blood Pressure Position Sitting 04/22/22 08:07 Pulse Oximetry 99 04/22/22 08:07 Oxygen Delivery Method 04/22/22 08:07 Vital Signs Temperature 97.0 F L 04/22/22 08:07 Pulse Rate 103 H 04/22/22 08:07 Respiratory Rate 14 04/22/22 08:07 Blood Pressure 136/102 H 04/22/22 08:07 Pulse Oximetry 99 04/22/22 08:07 Oxygen Delivery Method 04/22/22 08:07 Temperature 97.0 F L 04/22/22 08:07 Pulse Rate 103 H 04/22/22 08:07 Respiratory Rate 14 04/22/22 08:07 Blood Pressure 136/102 H 04/22/22 08:07 Pulse Oximetry 99 04/22/22 08:07 Oxygen Delivery Method 04/22/22 08:07 Medical Decision Making MDM Narrative Medical decision making narrative: This patient comes in with injury to her left chest wall as described above. She arrives with normal vital signs. She is talking in complete sentences and does not display significant discomfort with normal breathing. There is distinct increase of pain when taking a deep breath. I discussed imaging options with the patient including ultrasound and chest x-ray. In a process of shared decision making an ultrasound was used to evaluate and rule out pneumothorax and rib injury. Ultrasound images returned with normal findings. There is no evidence of compromise of her breast implant. The patient received a rib belt and prescription for pain medicines. Discharge Plan Discharge Clinical Impression: Rib injury Patient Disposition: Home, Self-Care Condition: Stable Additional Instructions: Wear rib belt as needed. Take medication also as needed and indicated. Follow up with MD or return if worsening. Prescriptions: New hydrocodone-acetaminophen 5-325 mg tablet 1 tab PO Q4-6H PRN (Reason: pain) Qty: 15 0RF ketorolac 10 mg tablet 10 mg PO Q8H 5 Days Qty: 15 0RF ondansetron 4 mg tablet,disintegrating 4 mg PO Q6H Qty: 10 0RF No Action spironolactone 50 mg tablet 50 mg PO BID Qty: 60 9RF metoprolol succinate 50 mg tablet extended release 24 hr 50 mg PO DAILY nystatin 100,000 unit/gram cream 1 applic topical .2-3X/Day diazepam [Valium] 5 mg tablet 5 mg PO TID PRN (Reason: muscle spasm) Qty: 30 0RF Rx Instructions: 1 tablet up to 3 times daily PRN spironolactone 50 mg tablet 50 mg PO DAILY esomeprazole magnesium [Nexium] 20 mg capsule,delayed release(DR/EC) 20 mg PO QDAY Qty: 90 1RF Rx Instructions: for acid reflux metformin 500 mg tablet extended release 24 hr 1,000 mg PO QDAY Qty: 180 1RF Rx Instructions: take 1000mg daily once in the morning albuterol sulfate [Ventolin HFA] 90 mcg/actuation HFA aerosol inhaler 2 puff inhalation Q4H PRN (Reason: bronchospasm) Qty: 8.5 8RF Follow Up/Referrals: Eufemia Garcia PA-C [Primary Care Provider] - Stand Alone Forms: [facility] Info Instructions Procedures Ultrasound Other exam #1: Anatomical areas examined: Lungs and left breast implant Indications: Injury from a fall. Exam type: focused emergency ultrasound Description/findings: No findings suspicious for pneumothorax. Breast implant is intact without any rupture. Ribs are also evaluated where there is pain and has no sign of fracture. Impression: Normal exam.
== END 2022-04-22 09:35 | disposition home or self-care (01) ==
PROVIDERS: Emergency Provider Emergency Medicine Emergency Medical Services; PCP Physician Assistant Medical
DX: R07.81 Pleurodynia (principal); W00.0XXA Fall on same level due to ice and snow, initial encounter
CPT/HCPCS: 76604; 99283; 99284

== ENCOUNTER 2022-06-27 15:27 | Outpatient (CLI) | payer MEDICAID, SELFPAY | END 2022-06-27 15:28 | disposition home or self-care (01) | PROVIDERS: PCP Physician Assistant Medical; Visit Provider Physician Assistant Medical | DX: E11.9 Type 2 diabetes mellitus without complications (principal); R09.89 Other specified symptoms and signs involving the circulatory and respiratory systems; M79.671 Pain in right foot | CPT/HCPCS: 82607; 82746; 84425 ==

== ENCOUNTER 2022-11-04 08:55 | Outpatient (CLI) | payer MEDICAID, SELFPAY | END 2022-11-04 08:56 | disposition home or self-care (01) | LOC: NFLDREF 16:09 | PROVIDERS: PCP Physician Assistant Medical; Referring Provider Physician Assistant Medical; Visit Provider Physician Assistant Medical | DX: Z00.00 Encounter for general adult medical examination without abnormal findings (principal); E11.9 Type 2 diabetes mellitus without complications; I10 Essential (primary) hypertension; E04.1 Nontoxic single thyroid nodule; R53.83 Other fatigue; E66.9 Obesity, unspecified; F41.9 Anxiety disorder, unspecified | CPT/HCPCS: 80053; 80061; 82043; 82570; 82607 ==

== ENCOUNTER 2022-11-06 13:06 | Outpatient (CLI) | payer MEDICAID, SELFPAY | END 2022-11-06 13:07 | disposition home or self-care (01) | LOC: LKVREF 13:07 | PROVIDERS: PCP Physician Assistant Medical; Visit Provider Physician Assistant Medical | DX: E04.1 Nontoxic single thyroid nodule (principal); I10 Essential (primary) hypertension | CPT/HCPCS: 84443 ==

== ENCOUNTER 2022-11-26 06:31 | Outpatient (CLI) | payer MEDICAID, SELFPAY ==
--- OUTSIDE RECORDS SUMMARY | 2022-11-26 06:33 | XMS_ITS | Continuity of Care Document ---
Author Name Unknown Organization [facility] Address [address] [place] [address] [place] [address] Phone Care Team Providers Care Armature Rewinder Name Role Phone Will Celestino MARTINEZ Unavailable Unavailabl e Allergies, Adverse Reactions, Alerts Substance Reaction Status Criticality No Known Allergies Active No Inform ation Medications Medication Instructions Dosage Effective Dates (start - stop) Status Comments Toprol XL 50 mg tablet,extended release - Active Depo-Provera 400 mg/mL IM - Active Imitrex 50 mg tablet take 2 tablet by or al route once with fluids as early as possible after the onset of a migraine attack;may repeat after 2 hours if headache returns, not to exceed 200mgin 24hrs 100 MG - Active Zyrtec 10 mg tablet - Active Flonase 50 mcg/actuation Nasal [place] - Active dicyclomine 10 mg capsule - Active Procedures Procedure Date OFFICE CONSULTATION Advance Directives Directive Yes / No Effective Date File Name No Information Encounters Encounter Description Practice Location Reason(s) For Visit Diagnoses Date Provider Providers Copied on Encounter [facility], [address] [place] [address], [id number] , tel: [phone] [facility] [place] No Information 2 Will Celestino. [address] [facility] [place], [id number] , [place]. tel:[phone] OFFICE CONSULTATION [facility], [address] [facility] [place], [id number] , [place] tel: [phone] [facility] [place] widespread pain (chief complaint) LumbagoCervicalgiaP ain in joint involving ankle and footMyalgia and myositis, unspecifiedPain in joint involving shoulder regionPain in joint involving pelvic region and thighDepressionHype rtension, Benign 3 Devin Tirado. [address] [place], [place], [id number] , . [phone] Referring Provider: Celestino Garcia, [address] [place], [address] . tel:[phone] Family History Family Member Type Diagnosis Age At Onset No Information Payers Payer name Insurance type Covered alliance party ID Authoriza tion(s) No Information Social History Type Description Quantity Date Captured Comments Sex Female Smoking Status No Information Chief Complaint And Reason For Visit No Information Reason For Referral Reason For Referral No Information History Of Present Illness Encounter Date Complaint History Of Prese nt Illness No Information Functional Status Date Functional Assessmen t No Information Instructions Date Instruction Additional Infor mation Continue current medication Reviewed medications New medication is prescribed Follow exercise program Depression Screen Oswestry Score Assessments Type Assessment Date No Information Patient Care Teams Name Effective Dates (start - stop) Status Members No Information
--- NOTE | 2022-11-26 08:16 | W.ANESCHARGE ---
Anesthesia Charges Start Date/Time Anesthesia Start Date: 11/26/22 Anesthesia Start Time: 07:19 Stop Date/Time Anesthesia Stop Date: 11/26/22 Anesthesia Stop Time: 08:13
--- NOTE | 2022-11-26 08:18 | W.ANESCHARGE ---
Anesthesia Charges Start Date/Time Anesthesia Start Date: 11/26/22 Anesthesia Start Time: 07:19 Stop Date/Time Anesthesia Stop Date: 11/26/22 Anesthesia Stop Time: 08:13
== END 2022-11-26 06:32 | disposition home or self-care (01) ==
LOC: OP CLINIC 06:32
PROVIDERS: PCP Physician Assistant Medical; Visit Provider Surgery
DX: Z12.11 Encounter for screening for malignant neoplasm of colon (principal); K63.5 Polyp of colon; K64.8 Other hemorrhoids; Z86.010 Personal history of colon polyps; J04.0 Acute laryngitis
CPT/HCPCS: 43239; 45385; 813; 88305; J2704

== ENCOUNTER 2022-11-27 13:09 | Outpatient (CLI) | payer MEDICAID, SELFPAY ==
--- NOTE | 2022-11-27 13:00 | CRLHL7_ITS ---
For Patients: As a result of the Century Cures Act, medical imaging exams and procedure reports are released immediately into your electronic medical record. You may view this report before your referring provider. If you have questions, please contact your health care provider. INDICATION: Lung cancer screening. History of smoking. High risk patient with greater than 25 pack-year smoking history. TECHNIQUE: Low-dose lung cancer screening non-contrast CT chest. Dose reduction techniques were used. COMPARISON: None. FINDINGS: NODULES: Spiculated nodule right upper lobe measuring 8.1 millimeters, , 06/27. he has small nodular densities elsewhere bilaterally measuring 2.5 millimeters or less. LUNGS AND PLEURA: Had elected assist/scarring both lung bases. Pleural parenchymal scarring both lung apices. MEDIASTINUM: Subcentimeter lymph nodes are present in the thorax/axilla. Chronic changes involving the left breast implant noted. CORONARY ARTERY CALCIFICATION: Minimal. LIMITED UPPER ABDOMEN: Unremarkable. MUSCULOSKELETAL: No fracture. IMPRESSION: Spiculated 8.1 millimeter nodule right upper lobe. LUNG-RADS CATEGORY: 4A: Suspicious. RADIOLOGIST RECOMMENDATION: Low-dose CT chest in 3 months. Alternatively, PET/CT could be performed. Please note that all CT scans at this facility use dose modulation, iterative reconstruction, and/or weight-based dosing when appropriate to reduce radiation dose to as low as reasonably achievable. Dictated by Rob Banerjee MD @ 11/29/2022 12:43:10 PM (Electronically Signed)
--- OUTSIDE RECORDS SUMMARY | 2022-11-27 13:11 | XMS_ITS | Continuity of Care Document ---
Author Name Unknown Organization [facility] Address [address] [place] [address] [place] [address] Phone Care Team Providers Care Wiping Cloth Cutter Name Role Phone Will Celestino MARTINEZ Unavailable [...] tablet - Active Flonase 50 mcg/actuation Nasal [place] - Active dicyclomine 10 mg capsule - Active Procedures Procedure Date OFFICE CONSULTATION Advance Directives Directive Yes / No Effective Date File Name No Information Encounters Encounter Description Practice Location Reason(s) For Visit Diagnoses Date Provider Providers Copied on Encounter [facility], [address] [place] [address], [id number] , tel: [phone] [facility] [place] No Information 2 Will Celestino. [address] [facility] [place], [id number] , [place]. tel:[phone] OFFICE CONSULTATION [facility], [address] [facility] [place], [id number] , [place] tel: [phone] [facility] [place] widespread pain (chief complaint) LumbagoCervicalgiaP ain in joint involving ankle and footMyalgia and myositis, unspecifiedPain in joint involving shoulder regionPain in joint involving pelvic region and thighDepressionHype rtension, Benign 3 Devin Tirado. [address] [place] [place], [place], [id number] , . [phone] Referring Provider: Celestino Garcia, [address] [place], [address] . tel:[phone] Family History Family Member Type Diagnosis Age At Onset No Information Payers Payer name Insurance type Covered green party ID Authoriza tion(s) No Information Social [...]
== END 2022-11-27 13:10 | disposition home or self-care (01) ==
LOC: CT 13:10
PROVIDERS: PCP Physician Assistant Medical; Visit Provider Physician Assistant Medical
DX: Z12.2 Encounter for screening for malignant neoplasm of respiratory organs (principal); R91.8 Other nonspecific abnormal finding of lung field
CPT/HCPCS: 71271

== ENCOUNTER 2023-01-01 12:27 | Outpatient (CLI) | payer MEDICAID, SELFPAY ==
--- OUTSIDE RECORDS SUMMARY | 2023-01-01 12:31 | XMS_ITS | Continuity of Care Document ---
Author Name Unknown Organization [facility] Address [address] [place] [address] [place] [address] Phone Care Team Providers Care Occupational Therapy Supervisor Name Role Phone Will Celestino MARTINEZ Unavailable [...] tablet - Active Flonase 50 mcg/actuation Nasal [place] - Active dicyclomine 10 mg capsule - Active Procedures Procedure Date OFFICE CONSULTATION Advance Directives Directive Yes / No Effective Date File Name No Information Encounters Encounter Description Practice Location Reason(s) For Visit Diagnoses Date Provider Providers Copied on Encounter [facility], [address] [place] [address], [id number] , tel: [phone] [facility] [place] No Information 2 Will Celestino. [address] [facility] [place], [id number] , [place]. tel:[phone] OFFICE CONSULTATION [facility], [address] [facility] [place], [place], [id number] , [place] tel: [phone] [facility] [place] widespread pain (chief complaint) LumbagoCervicalgiaP ain in joint involving ankle and footMyalgia and myositis, unspecifiedPain in joint involving shoulder regionPain in joint involving pelvic region and thighDepressionHype rtension, Benign 3 Devin Tirado. [address] [place], [place], [id number] , . [phone] Referring Provider: Celestino Garcia, [address] [place], [address] . tel:[phone] Family History Family Member Type Diagnosis Age At Onset No Information Payers Payer name Insurance type Covered constitution party ID Authoriza tion(s) No Information Social [...]
== END 2023-01-01 12:28 | disposition home or self-care (01) ==
PROVIDERS: PCP Physician Assistant Medical; Visit Provider Physician Assistant Medical
DX: R31.9 Hematuria, unspecified (principal); R53.83 Other fatigue; E04.1 Nontoxic single thyroid nodule; E11.9 Type 2 diabetes mellitus without complications; I10 Essential (primary) hypertension; E66.9 Obesity, unspecified; F41.9 Anxiety disorder, unspecified
CPT/HCPCS: 80053; 82306; 82607; 84439; 84443

== ENCOUNTER 2023-01-09 14:18 | Outpatient (CLI) | payer MEDICAID, SELFPAY ==
--- OUTSIDE RECORDS SUMMARY | 2023-01-09 14:20 | XMS_ITS | Continuity of Care Document ---
Author Name Unknown Organization [facility] Address [address] [place] [address] [place] [address] Phone Care Team Providers Care Rn Circulating Name Role Phone Will Celestino MARTINEZ Unavailable [...] tablet - Active Flonase 50 mcg/actuation Nasal [place] - Active dicyclomine 10 mg capsule - Active Procedures Procedure Date OFFICE CONSULTATION Advance Directives Directive Yes / No Effective Date File Name No Information Encounters Encounter Description Practice Location Reason(s) For Visit Diagnoses Date Provider Providers Copied on Encounter [facility], [address] [place] [address], [id number] , tel: [phone] [facility] [place] No Information 2 Will Celestino. [address] [facility] [place], [place], [id number] , [place]. tel:[phone] OFFICE CONSULTATION [facility], [address] [facility] [place], [id number] , [place] tel: [phone] [facility] [place] widespread pain (chief complaint) LumbagoCervicalgiaP ain in joint involving ankle and footMyalgia and myositis, unspecifiedPain in joint involving shoulder regionPain in joint involving pelvic region and thighDepressionHype rtension, Benign 3 Devin Tirado. [address] [place], [place], [id number] , . [phone] Referring Provider: Celestino Garcia, [address] [place], [address] . tel:[phone] Family History Family Member Type Diagnosis Age [...]
--- NOTE | 2023-01-09 14:45 | CRLHL7_ITS ---
For Patients: As a result of the Century Cures Act, medical imaging exams and procedure reports are released immediately into your electronic medical record. You may view this report before your referring provider. If you have questions, please contact your health care provider. CLINICAL HISTORY: Pulmonary nodule. TECHNIQUE: Following IV injection of 29-qejfou-5-deoxyglucose (FDG) and a standard uptake period of approximately 60 minutes, a non-contrast CT scan followed by a PET scan were acquired along the length of the body from the mid portion of the head to the mid thighs. The non-contrast CT was used for anatomic localization and photon attenuation correction of the PET scan. Blood Glucose Level (mg/dL): 93 FDG Dose (mCi): 12.7 COMPARISON: Chest CT scan dated 27 November 2022. FINDINGS: Head/Neck: No abnormal activity identified in the head and neck. Chest: No mediastinal or hilar adenopathy. Scattered small bilateral axillary lymph nodes with the largest in the right axilla measuring 7 mm in short axis, SUV max 4.0 and the largest in the left axilla measuring 6 mm in short axis, SUV max 2.4. Bilateral breast implants. The lungs show 8 x 3 mm pulmonary nodule in the medial aspect of the right lung apex best seen on image 76, SUV max 1.0. No other focal pulmonary opacities. No pneumothorax. Abdomen/Pelvis: No focal abnormalities identified in the visualized portions of the liver, spleen, pancreas, adrenal glands, and kidneys. No hydronephrosis. The GI tract is incompletely distended but shows no gross abnormalities. No retroperitoneal, pelvic sidewall, or mesenteric adenopathy. Bones: No abnormal skeletal activity identified. IMPRESSION: 1. 8 x 3 mm pulmonary nodule in the right lung apex shows low activity and may represent a small area of parenchymal scarring but cannot exclude a neoplastic process. 2. Small bilateral axillary lymph nodes show slightly increased activity in the right axilla which is a nonspecific finding but could be due to an infectious/inflammatory process. Recommend follow-up chest CT scan in 3 months to assess for stability. Dictated by Dmitri Marvin MD @ 01/17/2023 2:47:17 PM (Electronically Signed)
== END 2023-01-09 14:19 | disposition home or self-care (01) ==
PROVIDERS: PCP Physician Assistant Medical; Visit Provider Physician Assistant Medical
DX: R91.1 Solitary pulmonary nodule (principal)
CPT/HCPCS: 78815; A9552

== ENCOUNTER 2023-01-10 16:05 | Outpatient (CLI) | payer MEDICAID, SELFPAY ==
--- OUTSIDE RECORDS SUMMARY | 2023-01-12 08:31 | XMS_ITS | Continuity of Care Document ---
Author Name Unknown Organization [facility] Address [address] [place] [address] [place] [address] Phone Care Team Providers Care Primary Special Education Teacher Name Role Phone Will Celestino MARTINEZ Unavailable [...] tablet - Active Flonase 50 mcg/actuation Nasal [place] - Active dicyclomine 10 mg capsule - Active Procedures Procedure Date OFFICE CONSULTATION Advance Directives Directive Yes / No Effective Date File Name No Information Encounters Encounter Description Practice Location Reason(s) For Visit Diagnoses Date Provider Providers Copied on Encounter [facility], [address] [place] [address], [id number] , tel: [phone] [facility] [place] No Information 2 Will Celestino. [address] [facility] [place], [id number] , [place]. tel:[phone] OFFICE CONSULTATION [facility], [address] [facility] [place], [place], [id number] , [place] tel: [phone] [facility] [place] widespread pain (chief complaint) LumbagoCervicalgiaP ain in joint involving ankle and footMyalgia and myositis, unspecifiedPain in joint involving shoulder regionPain in joint involving pelvic region and thighDepressionHype rtension, Benign 3 Devin Tirado. [address] [place], [place], [id number] , . [phone] Referring Provider: Celestino Garcia, [address] [place], [address] . tel:[phone] Family History Family Member Type Diagnosis Age [...]
== END 2023-01-10 16:06 | disposition home or self-care (01) ==
LOC: NFLDREF 01-12 08:30
PROVIDERS: PCP Physician Assistant Medical; Referring Provider Physician Assistant Medical; Visit Provider Physician Assistant Medical
DX: N28.9 Disorder of kidney and ureter, unspecified (principal); R79.89 Other specified abnormal findings of blood chemistry; E11.9 Type 2 diabetes mellitus without complications; E04.1 Nontoxic single thyroid nodule
CPT/HCPCS: 82043; 82570; 84443

== ENCOUNTER 2023-01-23 07:18 | Outpatient (CLI) | payer MEDICAID, SELFPAY ==
--- NOTE | 2023-01-23 07:15 | CRLHL7_ITS ---
For Patients: As a result of the Century Cures Act, medical imaging exams and procedure reports are released immediately into your electronic medical record. You may view this report before your referring provider. If you have questions, please contact your health care provider. CLINICAL HISTORY: renal insufficiency COMPARISON: CT PET 01/09/2023 TECHNIQUE: Armstrong scale and color Doppler images were acquired of the kidneys and urinary bladder. FINDINGS: Sonographic images reveal a symmetric appearance of the kidneys. There is no evidence of hydronephrosis, mass or calculus. The right kidney measures 9.2cm in length and the left kidney measures 9.2cm in length. The renal cortex appears of normal thickness. Normal color Doppler images of both kidneys. Bladder incompletely distended. IMPRESSION: Normal renal ultrasound. Dictated by Rob Banerjee MD @ 01/23/2023 8:26:05 AM (Electronically Signed)
== END 2023-01-23 07:19 | disposition home or self-care (01) ==
LOC: US 07:18
PROVIDERS: PCP Physician Assistant Medical; Visit Provider Physician Assistant Medical
DX: N28.9 Disorder of kidney and ureter, unspecified (principal)
CPT/HCPCS: 76775

== ENCOUNTER 2023-02-13 13:28 | Outpatient (CLI) | payer MEDICAID, SELFPAY ==
--- NOTE | 2023-02-13 13:20 | CRLHL7_ITS ---
For Patients: As a result of the Century Cures Act, medical imaging exams and procedure reports are released immediately into your electronic medical record. You may view this report before your referring provider. If you have questions, please contact your health care provider. BILATERAL SCREENING MAMMOGRAM WITH COMPUTER-AIDED DETECTION AND TOMOSYNTHESIS TECHNIQUE: CC, MLO and Implant displaced views were obtained. These mammographic images have been obtained using full-field digital technique. These mammographic images were interpreted with the benefit of computer-aided detection. Breast Tomosynthesis was used in this interpretation. COMPARISON FILM: 07/19/20, 05/23/17, 07/19/15. FINDINGS: There are scattered areas of fibroglandular density IMPRESSION: There is no radiographic evidence for malignancy. ASSESSMENT: BI-RADS Category 2: Benign RECOMMENDATION: Routine screening mammogram in 1 year. A lay language report of this examination will be provided to the patient. Rob Banerjee M.D. Diagnostic Radiologist [email or web address] Transcribed: 1:02 p.johsua iqbal/Dictated by: Rob Banerjee MD @ 02/14/2023 10:40:00 AM (Electronically Signed)
--- OUTSIDE RECORDS SUMMARY | 2023-02-13 13:30 | XMS_ITS | Continuity of Care Document ---
Author Name Unknown Organization [facility] Address [address] [place] [address] [place] [address] Phone Care Team Providers Care Shift Production Associate Name Role Phone Will Celestino MARTINEZ Unavailable [...] tablet - Active Flonase 50 mcg/actuation Nasal [place] - Active dicyclomine 10 mg capsule - Active Procedures Procedure Date OFFICE CONSULTATION Advance Directives Directive Yes / No Effective Date File Name No Information Encounters Encounter Description Practice Location Reason(s) For Visit Diagnoses Date Provider Providers Copied on Encounter [facility], [address] [place] [address], [id number] , tel: [phone] [facility] [place] No Information 2 Will Celestino. [address] [facility] [place], [place], [id number] , [place]. tel:[phone] OFFICE CONSULTATION [facility], [address] [facility] [place], [id number] , [place] tel: [phone] [facility] [place] widespread pain (chief complaint) LumbagoCervicalgiaP ain in joint involving ankle and footMyalgia and myositis, unspecifiedPain in joint involving shoulder regionPain in joint involving pelvic region and thighDepressionHype rtension, Benign 3 Devin Tirado. [address] Pickett [place], [place], [id number] , . [phone] Referring Provider: Celestino Garcia, [address] [place], [address] . tel:[phone] Family History Family Member Type Diagnosis Age [...]
== END 2023-02-13 13:29 | disposition home or self-care (01) ==
PROVIDERS: PCP Physician Assistant Medical; Visit Provider Physician Assistant Medical
DX: Z12.31 Encounter for screening mammogram for malignant neoplasm of breast (principal)
CPT/HCPCS: 77063; 77067

== ENCOUNTER 2023-02-20 13:04 | Outpatient (CLI) | payer MEDICAID, SELFPAY ==
--- NOTE | 2023-02-20 13:00 | CRLHL7_ITS ---
For Patients: As a result of the 21st Century Cures Act, medical imaging exams and procedure reports are released immediately into your electronic medical record. You may view this report before your referring provider. If you have questions, please contact your health care provider. INDICATION: Pulmonary nodule TECHNIQUE: CT chest was acquired with IV contrast. cc Omnipaque-350 contrast utilized. COMPARISON: PET-CT 01/09/2023, CT chest 11/27/2022 FINDINGS: Cardiovascular structures: Heart size is normal. Thoracic aorta and main pulmonary artery are normal in caliber. Mediastinum and anderson: No mass or adenopathy. Lungs: Apical fibrotic change. 8 millimeter medial right apical nodule 3/37 unchanged. A few tiny micro nodules. No new nodules are seen Pleura and pericardium: No effusions. Chest wall and axilla: Mildly prominent axillary lymph nodes unchanged. Calcified breast implant with at least intracapsular rupture on the left. Bones: No significant findings. Upper abdomen: Cholecystectomy IMPRESSION: 1. Stable 8 millimeter right apical nodule. Continued follow-up recommended. [employer] SOLID NODULES: SINGLE LOW RISK - Nodule less than 6 mm: No routine follow-up. - Nodule 6-8 mm: CT at 6-12 months, then consider CT at 18-24 months. - Nodule greater than 8 mm: Consider CT at 3 months, PET-CT or tissue sampling. SINGLE HIGH RISK - Nodule less than 6 mm: Optional CT at 12 months. - Nodule 6-8 mm: CT at 6-12 months, then CT at 18-24 months. - Nodule greater than 8 mm: Consider CT at 3 months, PET-CT or tissue sampling. MULTIPLE LOW RISK - Nodule less than 6 mm: No routine follow-up. - Nodule 6-8 mm: CT at 3-6 months, then consider CT at 18-24 months. - Nodule greater than 8 mm: CT at 3-6 months, then consider CT at 18-24 months. MULTIPLE HIGH RISK - Nodule less than 6 mm: Optional CT at 12 months. - Nodule 6-8 mm: CT at 3-6 months, then at 18-24 months. - Nodule greater than 8 mm: CT at 3-6 months, then at 18-24 months. [employer] GUID[employer]INES SUBSOLID NODULES: GROUND GLASS - Nodule less than 6 mm: No routine follow-up. - Nodule greater than 6 mm: CT at 6-12 months to confirm persistence, then CT every 2 years until 5 years. PART SOLID - Nodule less than 6 mm: No routine follow-up. - Nodule greater than 6 mm: CT at 3-6 months to confirm persistence. If unchanged and solid component remains less than 6 mm, annual CT should be performed for 5 years. MULTIPLE - Nodule less than 6 mm: CT at 3-6 months. If stable, consider CT at 2 and 4 years. - Nodule greater than 6 mm: CT at 3-6 months. Subsequent management based on the most suspicious nodule(s). Please note that all CT scans at this facility use dose modulation, iterative reconstruction, and/or weight-based dosing when appropriate to reduce radiation dose to as low as reasonably achievable. Dictated by Venice Marvin MD @ 02/23/2023 1:43:51 PM (Electronically Signed)
--- OUTSIDE RECORDS SUMMARY | 2023-02-20 13:07 | XMS_ITS | Continuity of Care Document ---
Author Name Unknown Organization [facility] Address [address] [place] [address] [place] [address] Phone Care Team Providers Care Property Underwriter Name Role Phone Will Celestino MARTINEZ Unavailable [...] tablet - Active Flonase 50 mcg/actuation Nasal [place] - Active dicyclomine 10 mg capsule - Active Procedures Procedure Date OFFICE CONSULTATION Advance Directives Directive Yes / No Effective Date File Name No Information Encounters Encounter Description Practice Location Reason(s) For Visit Diagnoses Date Provider Providers Copied on Encounter [facility], [address] [place] [address], [id number] , tel: [phone] [facility] [place] No Information 2 Will Celestino. [address] [facility] [place], [place], [id number] , [place]. tel:[phone] OFFICE CONSULTATION [facility], [address] [facility] [place], [place], [id number] , [place] tel: [phone] [facility] [place] widespread pain (chief complaint) LumbagoCervicalgiaP ain in joint involving ankle and footMyalgia and myositis, unspecifiedPain in joint involving shoulder regionPain in joint involving pelvic region and thighDepressionHype rtension, Benign 3 Devin Tirado. [address] [place], [place], [id number] , . [phone] Referring Provider: Celestino Garcia, [address] [place], [address] . tel:[phone] Family History Family Member Type Diagnosis Age At Onset No Information Payers Payer name Insurance type Covered republican ID Authoriza tion(s) No Information Social History [...]
== END 2023-02-20 13:05 | disposition home or self-care (01) ==
LOC: CT 13:04
PROVIDERS: PCP Physician Assistant Medical; Visit Provider Physician Assistant Medical
DX: R91.1 Solitary pulmonary nodule (principal); R91.8 Other nonspecific abnormal finding of lung field
CPT/HCPCS: 71250

== ENCOUNTER 2023-06-11 14:26 | Outpatient (CLI) | payer MEDICAID, SELFPAY | END 2023-06-11 14:27 | disposition home or self-care (01) | PROVIDERS: PCP Physician Assistant Medical; Visit Provider Physician Assistant Medical | DX: E11.9 Type 2 diabetes mellitus without complications (principal); R25.2 Cramp and spasm | CPT/HCPCS: 82607; 83735; 84443 ==

== ENCOUNTER 2023-10-10 16:43 | Outpatient (CLI) | payer MEDICAID, SELFPAY ==
--- NOTE | 2023-10-10 16:45 | CRLHL7_ITS ---
For Patients: As a result of the Century Cures Act, medical imaging exams and procedure reports are released immediately into your electronic medical record. You may view this report before your referring provider. If you have questions, please contact your health care provider. INDICATION: Lung cancer screening. History of smoking. High risk patient with greater than 35 pack-year smoking history. TECHNIQUE: Low-dose lung cancer screening non-contrast CT chest. Dose reduction techniques were used. COMPARISON: 02/20/2023 FINDINGS: NODULES: Nodular density within the right upper lobe measures 8.2 millimeters, 3, unchanged. Additional nodule within the right upper lobe measures 4.3 millimeters, 46. Tiny 2 millimeter nodule within the anterior right lung, . LUNGS AND PLEURA: Emphysema. Biapical pleural-parenchymal scarring. Linear subsegmental scarring within both lower lobes. MEDIASTINUM: The visualized right thyroid lobe and isthmus appear normal. No adenopathy. CORONARY ARTERY CALCIFICATION: Minimal. LIMITED UPPER ABDOMEN: Gallbladder is absent. Chronic changes associated with the left breast implant. MUSCULOSKELETAL: Normal. IMPRESSION: Stable 8 millimeter right upper lobe pulmonary nodule. Smaller nodules on the right also present measuring 2 millimeters and 4 millimeters. LUNG-RADS CATEGORY: 2: Benign. RADIOLOGIST RECOMMENDATION: Continue annual screening with low-dose CT chest in 12 months. Please note that all CT scans at this facility use dose modulation, iterative reconstruction, and/or weight-based dosing when appropriate to reduce radiation dose to as low as reasonably achievable. Dictated by Rob Banerjee MD @ 10/13/2023 6:43:32 AM (Electronically Signed)
--- OUTSIDE RECORDS SUMMARY | 2023-10-10 16:45 | XMS_ITS | Continuity of Care Document ---
Author Organization [facility] Address [address] [place] [address] Phone Care Team Providers Care Transportation Assistant Name Role Phone Johnna CARREON, PhD, Milo Unavailable Unavai lable Procedures Procedure Date Office/Outpatient Visit,[facility] 2023 Advance Directives Directive Yes / No Effective Date File Name No Information Encounters Encounter Description Practice Location Reason(s) For Visit Diagnoses Date Provider Providers Copied on Encounter [facility], [address], [place], [place], [id number], [place] tel:[phone] No Information Johnna Pedraza. [facility], [address], [place], [address], [place]. tel:[phone] Office/Outpat ient Visit,[facility], [address], [place], [place], [id number], [place] tel:[phone] [facility] back pain, unspecified Johnna Pedraza. [facility], [address], [place], [address], [place]. tel:[phone] Referring Provider: Preston Li, [facility] [address] [facility] [address], [place], [address]. tel:[phone] Family History Family Member Type Diagnosis Age At Onset No Information Payers Payer name Insurance type Covered republican ID Authorjanice bonner(s) [place] [employer] [facility] [id number] [facility] Michael 2021 [id number] Social History Type Description Quantity Date Captured Comments Sex Female Smoking Status No Information Chief Complaint And Reason For Visit No Information Reason For Referral Reason For Referral No Information History Of Present Illness Encounter Date Complaint History Of Prese nt Illness No Information Functional Status Date Functional Assessmen t No Information Instructions Date Instruction Additional Infor mation No Information Assessments Type Assessment Date No Information Patient Care Teams Name Effective Dates (start - stop) Status Members No Information
--- OUTSIDE RECORDS SUMMARY | 2023-10-10 16:45 | XMS_ITS | Clinical Summary ---
Author Organization [facility] Address [address] [place] [address] Care Team Providers Care Electronic Industrial Controls Mechanic Name Role Phone Lyndsey Guzman MD Primary Care Provider [phone] Allergies Active Allergy Reactions Criticality Noted Date Comments Latex Hives 10/02/2020 Adhesive on bandaides Nickel Itching 10/02/2020 redness Medications Medication Sig Dispensed Refills Start Date End Date Status VALTREX 1 GM OR TABSIndications:Herpes simplex without mention of complication,Other acne 2 po q 12 hours x 1 day at first sign of lesion 40 5 04/25/2005 Active Metoprolol Succinate (TOPROL XL PO) Take 50 mg by mouth daily Active albuterol (PROAIR HFA, PROVENTIL HFA, VENTOLIN HFA) 108 (90 BASE) MCG/ACT inhaler Inhale 2 puffs into the lungs every 6 hours Active diazepam (VALIUM) 5 MG tablet Take 5 mg by mouth every 6 hours as needed for anxiety Active Microlet Lancets MISC USE TO TEST BLOOD SUGAR TWICE DAILY 07/17/2020 Active CONTOUR NEXT TEST test strip 2 times daily 09/02/2020 Active Active Problems Problem Noted Date Diagnosed Date Thyroid nodule 09/06/2020 Overview: Added automatically from request for surgery [id number] Tear of medial cartilage or meniscus of knee, cu rrent 04/24/2005 Backache 11/05/2004 Overview: Problem list name updated by automated process. Provider to review Abdominal pain, left lower quadrant 05/17/2004 Tobacco use disorder 10/19/2003 Other acne 08/26/2003 Irritable bowel syndrome 08/26/2003 Myalgia and myositis 08/26/2003 Overview: Problem list name updated by automated process. Provider to review DEPRESSIVE DISORDER NEC(aka DEPRESSION) 08/26/19 04 Immunizations Name Administration Dates Next Due Influenza (IIV3) PF 01/15/2011,04/27/2010 Influenza vaccine ages 6-35 months 02/17/2013 TD,PF 7+ (Tenivac) 05/28/2001,04/14/2001 TDAP Vaccine (Adacel) 10/02/2011 Family History Medical History Relation Comments Prostate Cancer Father Gynecology Mother Uterine fibroid Cancer Paternal Grandfather lung cancer Relation Status Comments Father Mother Paternal Grandfather Social History Tobacco Use Types Packs/Day Years Used Date Smoking Tobacco: Every Day Cigarettes 1 10 Smokeless Tobacco: Never Tobacco Cessation:Counseling Given: Yes Alcohol Use Standard Drinks/Week Comments Yes 0 (1 standard drink = 0.6 oz pur e alcohol) Social drink/monthly Adolescent Education Answer Date Record ed Getting School Help Needed Not on file 01/12 Sex and Gender Information Value Date Recorded Sex Assigned at Not on file Gender Identity Not on file Sexual Orientation Not on file Last Filed Vital Signs Vital Sign Reading Time Taken Comments Blood Pressure 134/84 11/28/2020 9:52 AM CDT Pulse 97 11/28/2020 9:52 AM CDT Temperature 36.8 ??C (98.3 ??F) 10/10/2020 8:16 AM CD T Respiratory Rate 16 11/28/2020 9:52 AM CDT [...] OF HM ORDERS 1969 CT COLONOGRAPHY 1969 FIT 1969 FLEX SIG 1969 YEARLY PREVENTIVE VISIT 1969 sDNA (Cologuard) 1969 Pneumococcal Vaccine: Pediatrics (0 to 5 Years) and At-Risk Patients (6 to 64 Years) (1 of 2 - PCV) 07/13/1975 HIV SCREENING 1984 HEPATITIS C SCREENING 07/13/1987 MAMMO SCREENING 05/02/2006 05/02/2004 PAP 04/25/2008 04/25/2005, 05/02/2004 LIPID 04/25/2010 04/25/2005 COLONOSCOPY 08/31/2015 08/30/2005 COLORECTAL CANCER SCREENING 08/31/2015 LUNG CANCER SCREENING 07/13/2019 09/19/2013 HEPATITIS B IMMUNIZATION (2 of 3 - 19+ 3-dose series) 02/08/2020 01/11/2020 ZOSTER IMMUNIZATION (2 of 2) 07/26/2020 05/31/2020 DTAP/TDAP/TD IMMUNIZATION (2 - Td or Tdap) 10/01/2021 10/02/2011, 05/28/2001, 05/28/2001, Additional history exists COVID-19 Vaccine ( season) 2022 PHQ-2 (once per calendar year) 2023 GLUCOSE 10/11/2023 10/10/2020, 04/2 08/2009, 06/27/2008, Additional history exists INFLUENZA VACCINE (Season Ended) 2023 05/31/2020, 03/18/2019, 01/30/2018, Additional history exists HPV IMMUNIZATION Aged Out No longer e ligible based on patient's age to complete this topic IPV IMMUNIZATION Aged Out No longer e ligible based on patient's age to complete this topic MENINGITIS IMMUNIZATION Aged Out No l onger eligible based on patient's age to complete this topic RSV MONOCLONAL ANTIBODY Aged Out No l onger eligible based on patient's age to complete this topic Procedures Procedure Name Priority Date/Time Associated Diagnosis Comments GLUCOSE BY METER Routine 10/10/2020 5:29 AM CDT Thyroid nodule CT CHEST PULMONARY EMBOLISM W CONTRAST STAT 09/19/2013 10:50 PM CDT ZZHC COLONOSCOPY THRU STOMA, DIAGNOSTIC Routine 08/30/2005 Contraceptive Mangmt Nos Family Hx Osteoporosis Myalgia And Myositis Nos Diarrhea Nos CL AFF A.M.A. LIPID PANEL Routine 04/25/2005 4:53 PM GLASS SMOOTHER Herpes Simplex Nos Acne Nec HCL PAP THIN LAYER SCREEN Routine 04/25/2005 12:00 AM GLASS SMOOTHER Routine Medical Exam C MAMMOGRAM, SCREENING Routine 05/02/2004 Symptoms In Breast Nec Dysuria from Last 3 Months or Most Recently Relevant to Health Maintenance Results * (ABNORMAL) Glucose by meter (10/10/2020 5:29 AM CDT) Glucose 128(H) 70 - 99 mg/dL 10/10/2020 5:35 AM CDT POINT OF CARE TEST, GLUCOSE 10/10/2020 5:29 AM CDT 10/10/2020 5:35 AM CDT Carine Smallwood MD [facility] POCT POINT OF CARE TEST, GLUCOSE * Chest CT, IV contrast only - PE protocol (09/19/2013 10:50 PM CDT) Anatomical Region Laterality Modality Chest, SUBRAD CT BODY, UMP CT CHEST Computed Tomography Impressions 09/21/2013 11:07 AM CDT IMPRESSION: 1. No evidence for pulmonary embolism or thoracic aortic dissection. ? 2. Mild infiltrate or atelectasis at both lung bases posteriorly. 3. A small amount of fluid is noted along the posterior aspect of the right breast implant, however this appearance is not convincing for breast implant rupture. Please clinically correlate. ? ALTHEA NINO MD Narrative 09/21/2013 11:[address] CHEST PULMONARY EMBOLISM WITH CONTRAST ?? 09/19/2013 10:50 PM HISTORY: Pleuritic pain. Evaluate for pulmonary embolism. TECHNIQUE: 81 mL of Isovue 370 were injected without complication. After contrast injection, volumetric helical acquisition was performed from the thoracic inlet through the upper abdomen. Pulmonary embolism protocol was performed. COMPARISON: None. FINDINGS: ??No evidence for pulmonary embolism. The thoracic aorta is of normal caliber, without evidence for thoracic aortic aneurysm or dissection. No pleural or pericardial effusions. No enlarged lymph nodes are identified in the chest. A few mildly prominent bilateral hilar and axillary lymph nodes do not meet size criteria for pathologic enlargement. Mild infiltrate or atelectasis is noted at both lung bases posteriorly. The lungs are otherwise clear. Limited noncontrast views of the upper abdomen are unremarkable. Bilateral breast implants are noted, with prominent peripheral calcification on the left. A small amount of fluid is noted along the posterior aspect of the right breast implant. ? Procedure Note Althea Nino MD - 09/21/2013 CT CHEST PULMONARY EMBOLISM WITH CONTRAST 09/19/2013 10:50 PM HISTORY: Pleuritic pain. Evaluate for pulmonary embolism. TECHNIQUE: 81 mL of Isovue 370 were injected without complication. After contrast injection, volumetric helical acquisition was performed from the thoracic inlet through the upper abdomen. Pulmonary embolism protocol was performed. COMPARISON: None. FINDINGS: No evidence for pulmonary embolism. The thoracic aorta is of normal caliber, without evidence for thoracic aortic aneurysm or dissection. No pleural or pericardial effusions. No enlarged lymph nodes are identified in the chest. A few mildly prominent bilateral hilar and axillary lymph nodes do not meet size criteria for pathologic enlargement. Mild infiltrate or atelectasis is noted at both lung bases posteriorly. The lungs are otherwise clear. Limited noncontrast views of the upper abdomen are unremarkable. Bilateral breast implants are noted, with prominent peripheral calcification on the left. A small amount of fluid is noted [...] for breast implant rupture. Please clinically correlate. ALTHEA NINO MD Pauline Ryan MD IMG CT ORDERABLES * COLONOSCOPY (08/30/2005) Devin Lopez DO PROCEDURES Performing Organization Address City/State/[facility] de Phone Number [facility] [address] * (ABNORMAL) A.M.A. LIPID PANEL (04/25/2005 4:53 PM GLASS SMOOTHER) Cholesterol 180 0 - 200 mg/dL [facility] Comment: LDL Cholesterol is the primary guide to therapy: LDL-cholesterol goal in high risk patients is <100 mg/dL and in very high risk patients is <70 mg/dL. The NCEP recommends further evaluation of: patients with cholesterol <200 mg/dL if additional risk factors are present, cholesterol >240 mg/dL, triglycerides >150 mg/dL, or HDL <40 mg/dL. Triglycerides 190(H) 0 - 150 mg/dL [facility] HDL Cholesterol 35(L) 50 - 110 mg/dL [facility] LDL Cholesterol Calculated 107 0 - 129 mg/dL [facility] Comment: LDL Cholesterol is the primary guide to therapy: LDL-cholesterol goal in high risk patients is <100 mg/dL and in very high risk patients is <70 mg/dL. VLDL-Cholesterol 38(H) 0 - 30 mg/dL [facility] Cholesterol/HDL Ratio 5.1(H) 0.0 - 5.0 [facility] 04/25/2005 4:53 PM GLASS SMOOTHER 04/25/2005 5:03 PM GLASS SMOOTHER Devin Lopez DO LABORATORY Performing Organization Address [facility] de Phone Number [facility] [address] * A THIN LAYER PAP SCREEN (04/25/2005 12:00 AM GLASS SMOOTHER) PAP JITENRDA Bolden Report Patient Name: RUBY CHRISTIAN MR#: [id number] Specimen #: [id number] Collected: 04/25/2005 Received: 04/28/2005 Reported: 05/01/2005 10:12 Ordering Phy(s): DEVIN LOPEZ SPECIMEN/STAIN PROCESS: Pap thin layer prep screening (SurePath) ? Pap-Cyto x 1, Reflex HPV x 1 SOURCE: Cervical, endocervical Pap thin layer prep screening (SurePath) SPECIMEN ADEQUACY: Satisfactory for evaluation. -Transitional zone component present. CYTOLOGIC INTERPRETATION: Negative for Intraepithelial Lesion or Malignancy Electronically signed out by: ALANNA Booth (ASCP) Processed at [facility], screened at [facility] CLINICAL HISTORY: LMP: no lmp recorded Previous normal pap: 05-02-04, TESTING LAB LOCATION: [address] [address] COLLECTION SITE: Client: ??[facility] Location: [facility]) [facility] 04/25/2005 04/28/2005 8:0 1 AM GLASS SMOOTHER Devin Lopez DO LABORATORY COPATH * MAMMOGRAM, SCREENING (05/02/2004) MAMMOGRAM CAT 2 [facility] Anatomical Region Laterality Modality Other Narrative 05/02/2004 PATIENT NAME: RUBY CHRISTIAN DATE OF : 68 DATE OF SERVICE: 05-02-04 ORDERING PHYSICIAN: ?GIANNI ? PATIENT STATUS: Outpt BILATERAL SCREENING MAMMOGRAM: The patient has bilateral breast implants. ??Four views were obtained of each breast. ??Suspicious tissue is not identified within either breast. IMPRESSION: ??Bilateral benign findings. IMAGING IMPRESSION: ??ARC BIRADS Category No. 2, benign. A letter has been sent to the patient. Maurisio Patel M.D./siva D: 05-03-04 T: 05-05-04 *-*-*-*-*-*-*-*-*-* PATIENT NAME: RUBY CHRISTIAN DATE OF : 68 DATE OF SERVICE: 05-02-04 ORDERING PHYSICIAN: ?? ?GIANNI PATIENT STATUS: Outpt BILATERAL SCREENING MAMMOGRAM ADDENDUM: No previous films done can be found. IMAGING IMPRESSION: ??ARC BIRADS Category No. 1, negative. A letter has been sent to the patient. Norberto Lynch M.D./siva D: 05-08-04 T: 05-09-04 Edwin Rangel MD SPECIAL IMAGING STUD IES from Last 3 Months or Most Recently Relevant to Health Maintenance Advance Directives For more information, please contact: [phone] * Full Code (Latest Code Status on File) Date Activated Date Inactivated Comments 10/09/2020 2:28 PM 10/10/2020 1:54 PM All basic an d advanced life-sustaining interventions are performed as appropriate Post op Question Answer Comments Code status determined by: Other (please documen t) Care Teams Electronic Industrial Controls Mechanic Relationship Specialty Start Date End Date Lyndsey Guzman MD [facility] [address], [place] [address] PCP - General Family Medicine 08/28/20
--- OUTSIDE RECORDS SUMMARY | 2023-10-10 16:46 | XMS_ITS | Referral Summary ---
Author Organization [facility] Address [address] [place] [address] Care Team Providers Care Tinning Machine Set Up Operator Name Role Phone Lyndsey Guzman MD Primary Care Provider [phone] Allergies Active Allergy Reactions Criticality Noted Date [...] Overview: Added automatically from request for surgery [id number] Tear of medial cartilage or meniscus of [...] 7+ (Tenivac) 05/28/2001,04/14/2001 TDAP Vaccine (Adacel) 10/02/2011 Social History Tobacco Use Types Packs/Day Years [...] 11/28/2020 9:52 AM CDT Plan of Treatment Not on file Procedures Procedure Name Priority Date/Time Associated Diagnosis Comments GLUCOSE BY METER Routine 10/10/2020 5:29 AM CDT Thyroid nodule CT CHEST PULMONARY EMBOLISM W CONTRAST STAT 09/19/2013 10:50 PM CDT ZZHC COLONOSCOPY THRU STOMA, DIAGNOSTIC Routine 08/30/2005 Contraceptive Mangmt Nos Family Hx Osteoporosis Myalgia And Myositis Nos Diarrhea Nos CL AFF A.M.A. LIPID PANEL Routine 04/25/2005 4:53 PM HARDWARE ENGINEER Herpes Simplex Nos Acne Nec HCL PAP THIN LAYER SCREEN Routine 04/25/2005 12:00 AM HARDWARE ENGINEER Routine Medical Exam C MAMMOGRAM, SCREENING Routine 05/02/2004 Symptoms In Breast Nec Dysuria from Last 3 Months or Most Recently Relevant to Health Maintenance Results * (ABNORMAL) Glucose by meter (10/10/2020 5:29 AM CDT) Glucose 128(H) 70 - 99 mg/dL 10/10/2020 5:35 AM CDT POINT OF CARE TEST, GLUCOSE 10/10/2020 5:29 AM CDT 10/10/2020 5:35 AM CDT Carine Smallwood MD LAB - [facility] POCT POINT OF CARE TEST, GLUCOSE * [...] correlate. ALTHEA NINO MD Pauline Ryan MD [facility] ORDERABLES * COLONOSCOPY (08/30/2005) Devin Lopez DO PROCEDURES Performing Organization Address [facility] de Phone Number [facility] [employer] [place] [address] * (ABNORMAL) A.M.A. LIPID PANEL (04/25/2005 4:53 PM HARDWARE ENGINEER) Cholesterol 180 0 - 200 mg/dL [facility] [employer] [facility] Comment: LDL Cholesterol is the primary guide to therapy: LDL-cholesterol goal in high risk patients is <100 mg/dL and in very high risk patients is <70 mg/dL. The NCEP recommends further evaluation of: patients with cholesterol <200 mg/dL if additional risk factors are present, cholesterol >240 mg/dL, triglycerides >150 mg/dL, or HDL <40 mg/dL. Triglycerides 190(H) 0 - 150 mg/dL [facility] [employer] [facility]RAD HDL Cholesterol 35(L) 50 - 110 mg/dL [facility] LDL Cholesterol Calculated 107 0 - 129 mg/dL [facility] [employer] [facility] Comment: LDL Cholesterol is the primary guide to therapy: LDL-cholesterol goal in high risk patients is <100 mg/dL and in very high risk patients is <70 mg/dL. VLDL-Cholesterol 38(H) 0 - 30 mg/dL [facility] Cholesterol/HDL Ratio 5.1(H) 0.0 - 5.0 [facility] [employer] [facility]RAD 04/25/2005 4:53 PM HARDWARE ENGINEER 04/25/2005 5:03 PM HARDWARE ENGINEER Devin Lopez DO LABORATORY Performing Organization Address [facility] Co de Phone Number [facility] [employer] [place] [address] * A THIN LAYER PAP SCREEN (04/25/2005 12:00 AM HARDWARE ENGINEER) PAP JITENDRA Bolden Report Patient Name: RUBY CHRISTIAN MR#: [id number] Specimen #: [id number] Collected: 04/25/2005 Received: 04/28/2005 Reported: 05/01/2005 10:12 Ordering Phy(s): DEVIN LOPEZ SPECIMEN/STAIN PROCESS: Pap thin layer prep screening (SurePath) ? Pap-Cyto x 1, Reflex HPV x 1 SOURCE: Cervical, endocervical Pap thin layer prep screening (SurePath) SPECIMEN ADEQUACY: Satisfactory for evaluation. -Transitional zone component present. CYTOLOGIC INTERPRETATION: Negative for Intraepithelial Lesion or Malignancy Electronically signed out by: ALANNA Booth (ASCP) Processed at [facility], screened at [facility] CLINICAL HISTORY: LMP: no lmp recorded Previous normal pap: 05-02-04, TESTING LAB LOCATION: [address] [address] COLLECTION SITE: Client: ??[facility] Location: [facility] 04/25/2005 04/28/2005 8:0 1 AM HARDWARE ENGINEER Devin Lopez DO LABORATORY COPATH * MAMMOGRAM, SCREENING (05/02/2004) MAMMOGRAM CAT 2 [facility] LAB/RAD Anatomical Region Laterality Modality Other Narrative 05/02/2004 PATIENT NAME: RUBY CHRISTIAN DATE OF : 68 DATE OF SERVICE: 05-02-04 ORDERING PHYSICIAN: ??CLAIRE ? PATIENT STATUS: Outpt BILATERAL SCREENING MAMMOGRAM: [...] Advance Directives For more information, please contact: [phone] * Full Code (Latest Code Status on File) Date Activated Date Inactivated Comments 10/09/2020 2:28 PM 10/10/2020 1:54 PM All basic an d advanced life-sustaining interventions are performed as appropriate Post op Question Answer Comments Code status determined by: Other (please documen t) Care Teams Tinning Machine Set Up Operator Relationship Specialty Start Date End Date Lyndsey Guzman MD [facility] [address], [place] [address] PCP - General Family Medicine 08/28/20
--- OUTSIDE RECORDS SUMMARY | 2023-10-10 16:46 | XMS_ITS | Clinical Summary ---
Author Organization [facility] Address [place], [place] [address] Care Team Providers Care Remote Encoding Center Manager Name Role Phone Anthony Christy Yap PT Primary Care Provider [phone] Allergies No known active allergies Medications Medication Sig Dispensed Refills Start Date End Date Status fluticasone (FLOVENT HFA) 220 mcg/Actuation inhaler Inhale 1 Puff by mouth 2 times daily. 1 Inhaler 3 01/15/2011 Active SUMAtriptan (IMITREX) 50 mg tabletIndications:M igraine, unspecified, without mention of intractable migraine without mention of status migrainosus Take 1 tablet by mouth every 2 hours if needed for Migraine. Max dose: 200mg per 24 hrs. 12 tablet 2 04/30/2011 Active LORazepam (ATIVAN) 0.5 mg Tab Take 1 tablet by mouth every 6 hours if needed. 30 tablet 0 04/30/2011 Active Additional Information Patient taking differently:0.5 mg OralDAILY, Reported on 05/19/2015 metoprolol succinate (TOPROL XL) 50 mg sustained-release tablet Take 50 mg by mouth once daily. Active albuterol HFA (PRO-AIR,VENTOLIN,P ROVENTIL) 90 mcg/actuation inhaler Inhale 1-2 Puffs by mouth 4 times daily if needed. Active valACYclovir (VALTREX) 500 mg tablet Take 500 mg by mouth 3 times daily. PRN only Active oxyCODONE-acetamino phen, 5-325 mg, (PERCOCET) 5-325 mg per tabletIndications:L ateral epicondylitis of left elbow Take 1-2 tablets by mouth every 4 hours if needed for Pain. Max acetaminophen dose: 4000mg in 24 hrs. 30 tablet 0 05/24/2015 Active hydrOXYzine pamoate (VISTARIL) 25 mg capsuleIndications: Lateral epicondylitis of left elbow Take 1 capsule by mouth every 8 hours if needed for Itching (nausea). 30 capsule 0 05/24/2015 Active Active Problems Problem Noted Date Diagnosed Date Pain medication agreement 07/06/2010 Fibromyalgia 05/15/2010 INSOMNIA NEC 09/03/2000 DEPRESSION, NEUROTIC 09/03/2000 Immunizations Name Administration Dates Next Due Influenza, IIV3 (Age >=3 years) 01/15/2011,04/27 Td (Age >=7 Years) 01/13/2008 Family History Medical History Relation Name Comments Cancer Father testicular Diabetes Maternal Grandfather Cancer Paternal Grandfather lung Relation Name Status Comments Father Maternal Grandfather Paternal Grandfather Social History Tobacco Use Types Packs/Day Years Used Date Smoking Tobacco: Every Day Cigarettes 1 6 Smokeless Tobacco: Never Comments:pamphlet given Alcohol Use Standard Drinks/Week Comments Yes 0 (1 standard drink = 0.6 oz pur e alcohol) occasionally once a year Sex and Gender Information Value Date Recorded Sex Assigned at Not on file Gender Identity Not on file Sexual Orientation Not on file Obstetrics History Para Term AB IAB SAB Ectopic Multiple Livin g Live Births 2 1 1 0 1 1 0 0 0 1 Date Outcome GA Total Labor Labor/2nd/3rd Weight Sex Type Anes PTL Evie A1 A5 Name Clin Term IAB Last Filed Vital Signs Vital Sign Reading Time Taken Comments Blood Pressure 117/60 05/24/2015 2:50 PM ELECTRON BEAM WELDER Pulse 85 05/24/2015 2:50 PM ELECTRON BEAM WELDER Temperature 36.3 ??C (97.3 ??F) 05/24/2015 1:41 PM CS T Respiratory Rate 16 05/24/2015 2:50 PM ELECTRON BEAM WELDER Oxygen Saturation 96% 05/24/2015 2:50 PM ELECTRON BEAM WELDER Inhaled Oxygen Concentration - - Weight 86.5 kg (190 lb 11.2 oz) 016 10:28 AM ELECTRON BEAM WELDER Height 167.6 cm (5' 5.98) 05/23/2015 8:44 AM CS T Body Mass Index 30.79 05/23/2015 8:44 AM ELECTRON BEAM WELDER Plan of Treatment Health Maintenance Due Date Last Done Comments Tdap 1980 Depression screening for age 12+ 1981 HIV for age 15-65 1984 BMI (ht and wt on same day) for age 18+ 07/13/1987 Hepatitis C screening for age 18-79 07/13/1987 Colonoscopy through age 75 2014 Mammogram for age 45-75 2014 Lipids for age 45-75 05/22/2015 05/22/2010 Tetanus booster 01/12/2018 01/13/2008 Zoster (shingles) series for age 50+ (1 of 2) 07/13/2019 COVID-19 vaccine series ( - 2022-24 season) 2022 Pap test for age 21-65 05/31/2023 , 05/31/2020, 04/29/2017, Additional history exists Influenza for age 50-64 12/14/2023 01/15/2011, 04/27 Pneumococcal series for age 6-64 Aged Out No longer eligible based on patient's age to complete this topic Medical Devices Implanted Type 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 [employer] Device Identifier Shelf Expiration Date Model / Serial / Lot Ancr Sut 2.4x8.5mm Suturetak Micro W/2-0 [employer] - [id number] Implanted:Qty: 1 on 05/24/2015 by Jon Mcpherson MD at [facility] Left: Elbow [employer] 01/11/2017 [id number] CNF # / / [id number] Procedures Procedure Name Priority Date/Time Associated Diagnosis Comments TRANSFORMER INSPECTOR THIN PREP PAP SCREEN IMAGED Routine 05/31/2020 2:30 PM ELECTRON BEAM WELDER LIPID PANEL W REFLEX MEASURED LDL Routine 05/22/2010 10:05 AM ELECTRON BEAM WELDER Screening for lipoid disorders from Last 3 Months or Most Recently Relevant to Health Maintenance Results * TRANSFORMER INSPECTOR THIN PREP PAP SCREEN IMAGED (05/31/2020 2:30 PM ELECTRON BEAM WELDER) Case Report Gynecologic Cytology Report ? Case: [id number] ? Authorizing Provider: ??Unknown, Doctor ?Collected: ? 05/31/2020 1430 ? Ordering Location: ? [facility] ?Received: ?06/02/2020 0811 ? First Screen: ?Nick, Denzel ? Specimen: ?TRANSFORMER INSPECTOR ThinPrep Vial Screening, Cervical/Vaginal ? 06/10/2020 1:27 PM [facility] INTERPRETATION/ RESULT NEGATIVE FOR INTRAEPITHELIAL LESION OR MALIGNANCY (NIL) (none) 06/10/2020 1:27 PM [facility] IMEN ADEQUACY Satisfactory for evaluation Endocervical component present 06/10/2020 1:27 PM [facility] HPV REQUEST HPV and PAP 06/10/2020 1:27 PM [facility] Menstrual Status 06/10/2020 1:27 PM [facility] Comment:Menopause Additional Information 06/10/2020 1:27 PM [facility] Comment: Interpreted at [facility] Laboratory - [address], [place] [address] Automated Review Successful 06/10/2020 1:27 PM [facility] Comment:Specimen processed s uccessfully by automated dressing machine operator device, [employer]Prep Imaging System, [employer] ANCILLARY TESTING TRANSFORMER INSPECTOR HPV Ordered, Please see separate report 06/10/2020 1:27 PM ELECTRON BEAM WELDER [facility] Note The pap test is a screening technique, not a diagnostic procedure. It is used primarily to screen for squamous cancers and precursor lesions. Published studies have shown that it is subject to both false negative and false positive results. The pap test should not be used as the sole means to diagnose or exclude pre-malignant and malignant lesions. 06/10/2020 1:27 PM ELECTRON BEAM WELDER [facility] Other (Cervical/Vagina l) 05/31/2020 2:30 PM ELECTRON BEAM WELDER 06/02/2020 8:11 AM ELECTRON BEAM WELDER Doctor Unknown PATHOLOGY/CYTOLOGY [facility] [address] [place] [address], [place] * (ABNORMAL) LIPID PANEL W REFLEX MEASURED LDL (05/22/2010 10:05 AM ELECTRON BEAM WELDER) CHOLESTEROL,TOTAL 110 110 - 199 mg/dL [facility] TRIGLYCERIDES 38(L) 40 - 149 mg/dL [facility] HDL CHOLESTEROL 43 >40 mg/dL [facility] CHOL/HDL RATIO 2.56 <4.51 [facility] LDL CHOLESTEROL 59 <131 mg/dL [facility] PATIENT STATUS Fasting [facility] Blood specimen (specimen) BLOOD SPECIMEN / Unknown 05/22/2010 10:05 AM ELECTRON BEAM WELDER 05/22/2010 9:33 AM ELECTRON BEAM WELDER Norberto Nicholson MD CHEMISTRY [facility] INTERNAL ZIP [address] [address] from Last 3 Months or Most Recently Relevant to Health Maintenance Advance Directives * Full Code (Latest Code Status on File) Date Activated Date Inactivated Comments 05/24/2015 1:33 PM 05/24/2015 5:10 PM * Full Code Date Activated Date Inactivated Comments 05/24/2015 10:17 AM 05/24/2015 1:33 PM Care Teams Remote Encoding Center Manager Relationship Specialty Start Date End Date Christy Cruz PT [address] [facility] [place] [address] PCP - General Physical Therapist 05/22/15
--- OUTSIDE RECORDS SUMMARY | 2023-10-10 16:46 | XMS_ITS | Data Portability ---
Author Organization [facility], [facility] Address [address] [place] [address] Care Team Providers Care Telecommunications Analyst Name Role Phone WOLF BANSAL Primary Care Provider Assessment No assessment recorded. Plan of Treatment Reminders Order Date Submit Date Provider Last Modified By Organization Details Last Modified Time Details Appointments None recorded. Lab urinalysi s, dipstick 2021 022 abajema [facility], [address], [place], [address], 2 12:42:04 urinalysi s, dipstick 2022 023 [email or web address] [facility], [address], [place], [address], 3 12:28:23 Referral physical therapist referral - referral for stress incontine ce 2021 022 clif Olmos, [address] [facility], [place], [address], 2 08:23:08 physical therapist referral 2022 023 clif Olmos, [address] [place], [address], 3 07:32:43 Procedures None recorded. Surgeries None recorded. Imaging CT, abdomen + pelvis, w/ contrast - Urogram phase 2021 022 [facility], [address], [place], [address], 2 17:33:27 Medication Orders trospium 20 mg tablet 2022 023 brit [id number], [address] [facility], [place], [place], [id number], 3 12:28:23 Patient TargetsNo targets recorded. Patient InstructionsNo instructions recorded. Reason for Referral Physical Therapist Referral for Genuine stress incontinence stress incontinece referral for stress incontinece Referring Physician: Flavio [facility]ales [facility], Encounter Date: 01/01/2022 Physical Therapist Referral for Microscopic hematuria Referring Physician: Flavio Morales [facility], Encounter Date: 06/25/2022 Results Created Date Observation Date Name Description Value Unit Range Abnormal Flag LastModifiedBy Organization Detail LastModifiedTime 01/02/20 22 01/01/2022 urina lysis , dipst ick Color-Status Yellow Not Available [facility] [address], [place], [address], 01/01/2022 11:52:48 01/02/20 22 01/01/2022 urina lysis , dipst ick Clarity-Stat us Clear Not Available [facility] [address], [place], [address], 01/01/2022 11:52:48 01/02/20 22 01/01/2022 urina lysis , dipst ick Glucose-Stat us Negati ve Not Available [facility] [address], [place], [address], 01/01/2022 11:52:48 01/02/20 22 01/01/2022 urina lysis , dipst ick Bilirubin-St atus Negati ve Not Available [facility] [address], [place], [address], 01/01/2022 11:52:48 01/02/20 22 01/01/2022 urina lysis , dipst ick Ketones-Stat us Negati ve Not Available [facility] [address], [place], [address], 01/01/2022 11:52:48 01/02/20 22 01/01/2022 urina lysis , dipst ick Sp Solsberry-Stat us 1.020 Not Available [facility] [address], [place], [address], 01/01/2022 11:52:48 01/02/20 22 01/01/2022 urina lysis , dipst ick pH-Status 5.5 Not Available [facility] [address], [place], [address], 01/01/2022 11:52:48 01/02/20 22 01/01/2022 urina lysis , dipst ick Urobilinogen -Status 0.2 Not Available [facility] [address], [place], [address], 01/01/2022 11:52:48 01/02/20 22 01/01/2022 urina lysis , dipst ick Nitrates-Sta tus negati ve Not Available [facility] [address], [place], [address], 01/01/2022 11:52:48 01/02/20 22 01/01/2022 urina lysis , dipst ick Blood-Status Negati ve Not Available [facility] [address], [place], [address], 01/01/2022 11:52:48 01/02/20 22 01/01/2022 urina lysis , dipst ick Leuko-Status Negati ve Not Available [facility] [address], [place], [address], 01/01/2022 11:52:48 01/02/20 22 01/01/2022 urina lysis , dipst ick Specimen Type Voided Not Available [facility] [address], [place], [address], 01/01/2022 11:52:48 01/02/20 22 01/01/2022 urina lysis , dipst ick Performed by Wolf Frey RN Not Available [facility] [address], [place], [address], 01/01/2022 11:52:48 01/02/20 22 01/01/2022 urina lysis , dipst ick Total Urine Volume 20cc Not Available [facility] [address], [place], [address], 01/01/2022 11:52:48 06/26/19 23 06/25/2022 urina lysis , dipst ick Color-Status Yellow Not Available [facility] [address], [place], [address], 06/25/2022 12:08:56 06/26/19 23 06/25/2022 urina lysis , dipst ick Clarity-Stat us Clear Not Available [facility] [address], [place], [address], 06/25/2022 12:08:56 06/26/19 23 06/25/2022 urina lysis , dipst ick Glucose-Stat us Negati ve Not Available [facility] [address], [place], [address], 06/25/2022 12:08:56 06/26/19 23 06/25/2022 urina lysis , dipst ick Bilirubin-St atus Negati ve Not Available [facility] [address], [place], [address], 06/25/2022 12:08:56 06/26/19 23 06/25/2022 urina lysis , dipst ick Ketones-Stat us Negati ve Not Available [facility] [address], [place], [address], 06/25/2022 12:08:56 06/26/19 23 06/25/2022 urina lysis , dipst ick Sp Solsberry-Stat us 1.010 Not Available [facility] [address], [place], [address], 06/25/2022 12:08:56 06/26/19 23 06/25/2022 urina lysis , dipst ick pH-Status 5.5 Not Available [facility] [address], [place], [address], 06/25/2022 12:08:56 06/26/19 23 06/25/2022 urina lysis , dipst ick Urobilinogen -Status 0.2 Not Available [facility] [address], [place], [address], 06/25/2022 12:08:56 06/26/19 23 06/25/2022 urina lysis , dipst ick Nitrates-Sta tus negati ve Not Available [facility] [address], [place], [address], 06/25/2022 12:08:56 06/26/19 23 06/25/2022 urina lysis , dipst ick Blood-Status Negati ve Not Available [facility] [address], [place], [address], 06/25/2022 12:08:56 06/26/19 23 06/25/2022 urina lysis , dipst ick Leuko-Status Negati ve Not Available [facility] [address], [place], [address], 06/25/2022 12:08:56 06/26/19 23 06/25/2022 urina lysis , dipst ick Specimen Type Voided Not Available [facility] [address], [place], [address], 06/25/2022 12:08:56 01/08/20 22 01/01/2022 bladd er scan (PROC ) No observ ation record ed. BARCODE Not Available 01/07/2022 09:07:18 06/21/19 23 06/18/2022 CT ABD wo&W & pelv wo&W (no oral cont) No observ ation record ed. [email or web address] [facility] [address] [facility] [address], [place], [address], 07/01/2022 10:45:14 Result Notes None recorded. Problems Name Status Onset Date Resolution Date Notes Provider Name and Address Organization Details Recorded Time Microscopic hematuria Active 017 R31.29 : Other microscopic hematuria Not Available [facility] 02:[facility] Problem Notes None recorded. Procedures Surgical History Date Name Laterality Status Provider Name and Address Organization Details Recorded Time 06/26/19 23 Bladder Scan completed Siobhan reyes, [facility] 06/25/2022 12:17:55 01/02/20 22 CystoscopyFemale completed Bala Desai PA-C [address] [place] [address],[address], [place], [address], [facility] 01/01/2022 12:36:16 01/02/20 22 Bladder Scan completed Wolf reyes, [facility] 01/01/2022 11:52:43 Orthopedic Surgery completed Wolf reyes, [facility] 01/01/2022 11:49:26 oophorectomy completed Wolf reyes, [facility] 01/01/2022 11:49:38 thyroidectomy completed Wolf reyes [facility] 01/01/2022 11:49:45 Imaging Results Imaging Date Name Status LastModified by Organiz ation Details LastModified Time 01/01/2022 bladder scan (PROC) completed BARCODE Information not available 01/07/2022 09:07:18 06/18/2022 CT ABD wo&W & pelv wo&W (no oral cont) completed [facility] [address], [place], [address], 07/01/2022 10:45:14 Procedure Notes None recorded. Medical Equipment None Reported. Allergies Allergen ID Allergen Name Allergen Category Reaction Reaction Severity Criticality Documentation Date Start Date Code Code System Note Provider Name and Address Organization Details Recorded Time 761712 adhesive tape environme nt,medica tion Not available Not available Not available 01/01/2022 Wolf reyes [facility] 2 11:46:01 150420 nickel environme nt Not available Not available Not available 01/01/2022 51531 29 RxNorm Wolf reyes [facility] 2 11:46:05 Medications Name Sig Start Date Stop Date Status Note LastModified by Organization Details LastModified Time antacid/dip hen/lido 111 mouthwas SWISH AND SPIT 5 ML BY MOUTH FOUR TIMES DAILY NEEDED. MAY COMPOUND / SUBSTITUE IF PRODUCT NOT COVERED active Not Available Not Available No t Available compound drug active Not Available Not Available Not Available amoxicillin 500 mg capsule TAKE 1 CAPSULE BY MOUTH EVERY 8 HOURS. 01/01 completed Not Available Not Available Not Available clotrimazol e 10 mg maryanne TAKE 1 LOZENGE BY MOUTH FIVE TIMES DAILY active Not Available Not Available No t Available azithromyci n 250 mg tablet TAKE 2 TABLETS BY MOUTH FOR 1 DAY THEN TAKE 1 TABLET BY MOUTH DAILY FOR 4 DAYS 01/01 completed Not Available Not Available Not Available metoprolol succinate ER 50 mg tablet,exte nded release 24 hr TAKE 1 TABLET BY MOUTH EVERY DAY FOR BLOOD PRESSURE active Not Available Not Available No t Available hydrocodone 5 mg-acetamin ophen 325 mg tablet TAKE 1 TABLET BY MOUTH EVERY 4 TO 6 HOURS NEEDED FOR PAIN active Not Available Not Available No t Available Retin-A 0.1 % topical cream APPLY TOPICALLY TO THE AFFECTED AREA AT BEDTIME active Not Available Not Available No t Available meloxicam 15 mg tablet TAKE 1 TABLET BY MOUTH DAILY 01/01 completed Not Available Not Available Not Available prednisone 20 mg tablet TAKE 1 TABLET BY MOUTH TWICE DAILY active Not Available Not Available No t Available acetaminoph en 300 mg-codeine 30 mg tablet TAKE 1 TABLET BY MOUTH EVERY 4 HOURS NEEDED 01/01 completed Not Available Not Available Not Available ketorolac 10 mg tablet TAKE 1 TABLET BY MOUTH EVERY 8 HOURS FOR 5 DAYS active Not Available Not Available No t Available cephalexin 500 mg capsule TAKE 1 CAPSULE BY MOUTH FOUR TIMES DAILY 01/01 completed Not Available Not Available Not Available dexamethaso ne 4 mg tablet TAKE 2 TABLETS BY MOUTH 1 TIME FOR SORE THROAT 01/01 completed Not Available Not Available Not Available lidocaine 5 % topical patch APPLY 1 PATCH DAILY 12 HOURS ON THEN 12 HOURS OFF active Not Available Not Available No t Available montelukast 10 mg tablet TAKE 1 TABLET BY MOUTH AT BEDTIME 01/01 completed Not Available Not Available Not Available codeine 10 mg-guaifene sin 100 mg/5 mL oral liquid TAKE 10 TO 15 ML BY MOUTH EVERY 6 HOURS 01/01 completed Not Available Not Available Not Available gabapentin 100 mg capsule TAKE 1 TO 3 CAPSULES BY MOUTH THREE TIMES DAILY FOR BACK PAIN 01/01 completed Not Available Not Available Not Available ibuprofen 600 mg tablet TAKE 1 TABLET BY MOUTH EVERY 4-6 HOURS AND NOT TO EXCED 4 IN A DAY active Not Available Not Available No t Available ondansetron 4 mg disintegrat ing tablet DISSOLVE 1 TABLET ON THE TONGUE EVERY 6 HOURS active Not Available Not Available No t Available metformin ER 500 mg tablet,exte nded release 24 hr TAKE 2 TABLETS BY MOUTH EVERY DAY IN THE MORNING active Not Available Not Available No t Available spironolact one 50 mg tablet TAKE 1 TABLET BY MOUTH TWICE DAILY active Not Available Not Available No t Available Microlet Lancet USE TO TEST BLOOD SUGAR TWICE DAILY active Not Available Not Available No t Available diazepam 5 mg tablet TAKE 1 TABLET BY MOUTH THREE TIMES DAILY NEEDED active Not Available Not Available No t Available amoxicillin 875 mg-potassiu m clavulanate 125 mg tablet TAKE 1 TABLET BY MOUTH TWICE DAILY FOR 10 DAYS 01/01 completed Not Available Not Available Not Available Ventolin HFA 90 mcg/actuati on aerosol inhaler INHALE 2 PUFFS BY MOUTH EVERY 4 HOURS NEEDED FOR BRONCHOSP ASM active Not Available Not Available No t Available esomeprazol e magnesium 20 mg capsule,del ayed release TAKE 1 CAPSULE BY MOUTH EVERY DAY FOR STOMACH ACID OR REFLUX active Not Available Not Available No t Available oxycodone 5 mg tablet TAKE 1 TO 2 TABLETS BY MOUTH EVERY 4 TO 6 HOURS NEEDED 01/01 completed Not Available Not Available Not Available cyclobenzap rine 5 mg tablet TAKE 1 TO 2 TABLETS BY MOUTH THREE TIMES DAILY NEEDED active Not Available Not Available No t Available trospium 20 mg tablet Take 1 tablet twice a day by oral route. 2022 active Not Available Not Available Not Avai lable duloxetine 20 mg capsule,del ayed release TAKE 2 CAPSULES BY MOUTH EVERY DAY 01/01 completed Not Available Not Available Not Available duloxetine 60 mg capsule,del ayed release TAKE 1 CAPSULE BY MOUTH EVERY DAY active Not Available Not Available No t Available chlorhexidi ne gluconate 0.12 % mouthwash active Not Available Not Available No t Available varenicline 1 mg tablet START DAY 8 AND TAKE 1 TABLET BY MOUTH TWICE DAILY FOR 11 WEEKS 01/01 completed Not Available Not Available Not Available varenicline 0.5 mg tablet DAYS 1-3 TAKE 1 TABLET BY MOUTH ONCE DAILY THEN DAYS 4-7 TAKE 1 TABLET BY MOUTH TWICE DAILY 01/01 completed Not Available Not Available Not Available Januvia 50 mg tablet TAKE 1 TABLET BY MOUTH EVERY DAY FOR DIABETES active Not Available Not Available No t Available Pulmicort Flexhaler 180 mcg/actuati on breath activated INHALE 1 PUFF BY MOUTH TWICE DAILY 01/01 completed Not Available Not Available Not Available Contour Next Test Strips USE TO TEST TWICE DAILY. active Not Available Not Available No t Available Paxlovid 300 mg (150 mg x 2)-100 mg tablets in a dose pack TK 2 NIRMATREL VIR TS AND 1 RITONAVIR T TOGETHER PO BID FOR 5 DAYS BID FOR 5 DAYS active Not Available Not Available No t Available Vitals Date Recorded Body height Body mass index (BMI) Body weight Provider Name and Address Organization Details Last Updated DateTime 01/01/2022 168.91 cm 28.8 kg/m2 86534.22 g Wolf Frey [place] [facility] 01/01/2022 11:45:40 Date Recorded Body height Body mass index (BMI) Body weight Provider Name and Address Organization Details Last Updated DateTime 06/25/2022 168.91 cm 28.8 kg/m2 87023.22 g Ciara Ross [facility] 06/25/2022 12:08:29 Social History Question Answer Notes LastModified by Organizat ion Details LastModified Time Tobacco Smoking Status Current Every Day [facility] 01/01/2022 11:48:59 What Is Your Level Of Alcohol Consumption? None [email or web address] Information not available 01/01/2022 What Is Your Level Of Caffeine Consumption? Heavy [email or web address] Information not available 01/01/2022 What Was The Date Of Your Most Recent Tobacco Screening? 06/25/2022 Information not available 06/25/2022 How Much Tobacco Do You Smoke? 1 PPD [email or web address] Information not available 01/01/2022 Do You Use Any Illicit Or Recreational Drugs? No Information not available 06/25/2022 Has Tobacco Cessation Counseling Been Provided? No Information not available 06/25/2022 Do You Or Have You Ever Used Any Other Forms Of Tobacco Or Nicotine? No Information not available 06/25/2022 Sex: Unknown Functional Status None recorded. Mental Status None recorded. Family History Relationship Description Onset Age of this Age Resolved Age Notes Father Malignant tumor of testis Maternal Grandfather Family history of malignant neoplasm Medical History Condition Response Other N High Blood Pressure Y Kidney Stones Y Lung Disease N Depression N GERD/Acid Reflux Y Sexually Transmitted Infection N Diabetes Y Bleeding Disorder N Cancer Y High Cholesterol N Heart Disease N Gynecological History Statement/Question Response If Post Menopausal, Age at Menopause 51 Sexually Active? Y Obstetrics History GPAL:G 0 P 0 0 0 0 Immunizations Vaccine Type Date Status Provider Name and Address Organization Details Recorded Time Influenza, injectable,quadriva lent, preservative free, pediatric 02/17/2013 completed Korin reyes [facility] 04/09/2023 14:12:24 Influenza, recombinant, quadrivalent, PF 05/31/2020 completed Korin reyes [facility] 04/09/2023 14:12:24 Influenza, recombinant, quadrivalent, PF 02/01/2021 completed Korin reyes [facility] 04/09/2023 14:12:24 Influenza, recombinant, quadrivalent, PF 03/18/2019 completed Korin Allar null, [facility] 04/09/2023 14:12:24 zoster recombinant 05/31/2020 completed Korin Al lar null, [facility] 04/09/2023 14:12:24 zoster recombinant 02/01/2021 completed Korin Al lar null, [facility] 04/09/2023 14:12:24 Tdap 10/02/2011 completed Korin Allar null, [facility] 04/09/2023 14:12:24 Influenza, split virus, trivalent, preservative 04/27/2010 completed Korin Allar null, [facility] 04/09/2023 14:12:24 Influenza, split virus, trivalent, PF 01/15/2011 completed Korin Allar null, [facility] 04/09/2023 14:12:24 Td (adult), 2 Lf tetanus toxoid, preservative free, adsorbed 05/23/2021 completed Korin Allar null, [facility] 04/09/2023 14:12:24 Td (adult), 2 Lf tetanus toxoid, preservative free, adsorbed 05/28/2001 completed Korin Allar null, [facility] 04/09/2023 14:12:24 Hep B, adult 01/11/2020 [facility] 14:12:24 Influenza, split virus, quadrivalent, PF 01/30/2018 completed Korin Allar null, [facility] 04/09/2023 14:12:24 Influenza, split virus, quadrivalent, PF 03/23/2014 completed Korin Allar null, [facility] 04/09/2023 14:12:24 Past Encounters Encounter ID Performer Location Encounter Start Date Encounter Closed Date Diagnosis/Indication Diagnosis SNOMED-CT Code [id number] Flavio Morales MD [facility] [address] [address] 01/01/2022 11:10:54 01/04/2022 16:59:32 Microscopic hematuria 784510359 Genuine st ress incontinence 63667235 Overactive urinary bladder [id number] Flavio Morales MD [facility] [address] [place] [id number] 06/25/2022 12:03:25 06/26/2022 13:47:53 Overactive urinary bladder 981142090 Microscopic hematuria [address] ess incontinence [id number] Health Concerns Section Related Observation LastModified by Organization Detai ls LastModified Time None Recorded Concern Status LastModified by Organization Details LastModified Time None Recorded Advance Directives Directive None Recorded Payers Encounter Date Sequence Insurance Name Policy Number Policy Bonilla Covered Member ID Bonilla Member ID Guarantor Name 01/01/2022 1 [employer] - INDIVIDUAL AND FAMILY (O) [id number] 1 Aileen Alassley [id number] Aileen Noland Nathalia 06/25/2022 1 [employer] - INDIV[employer]UAL [employer] FAMILY ([id number]) [id number] 1 Aileen Noland Nathalia [id number] Aileen Noland Nathalia Notes Date Note Type Note Provider Name and Address Organization Details Recorded Time 01/01/2022 text/html HPI Notes: 51 YO Female here for urgency and microscopic hematuria Microscopic Hematuria: Has had chronic microscopic hematuria for 10+ years. Was previously seen by a urologist and had a cysto about 10 years ago. Last UA 03/30/21 with 10-25 RBCs. Denies every having any gross hematuria. UA with moderate blood today. Denies flank, suprapubic, or abdominal pain. Denies family history of bladder of kidney cancer. Had a father who at a young age of testicular cancer. Currently everyday smoker. PYH 20. Stress incontinence: Has incontinece with cough and sneeze, very bothersome. Does not use pads during the day. Does not feel any vaginal bulging. Urgency: Has ongoing feelings of urgency for the past 2-3 years. Denies urge urinary incontinece, but does have to use kegals at times to hold in urine with urge. Frequency x6-10. Nocturia x3. Denies dysuria. MedHx: -kidney stones -HTN, -asthma -IBS SurgHx: -Left oophorectomy ObHx: -1 vaginal delivery UA moderate blood PVR 0ml Cysto is normal Pelvic without atrophy, no POP, but does have positive stress test Flavio Morales MD [address] [place] [address],[address], [address], [facility] 01/03/2022 17:56:51 06/25/2022 text/html HPI Notes: 51 YO Female here for urgency /stress incontinence and microscopic hematuria follow up Patient was last seen 01/01/22. 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 Patient would qualify for OAB meds once this is under control. Cysto was normal at that time. 1 Microscopic Hematuria: CT urogram 06/18/22 is normal; normal cysto in 12/2021. Her micro-hematuria is benign; NTD about it; return in 5 years unless is gross hematuria. 2. Stress incontinence:she was planning to do PT for stress incontinence. 3. Urgency: Persists with urgency and frequency. MedHx: -kidney stones -HTN, -asthma -IBS Flavio Morales MD [address] [place] [address],[address], [place], [address], [facility] 06/25/2022 12:28:57 OBGyn Episode No OBEpisode recorded.
--- OUTSIDE RECORDS SUMMARY | 2023-10-10 16:46 | XMS_ITS | Encounter Summary ---
Author Organization [facility] Address [address] [place] [address] Care Team Providers Care Mental Retardation Aide Name Role Phone Devin Britt DO Primary Care Provider [phone] Damian Dowell MD Unavailable [phone] Collin Anthony MD Unavailable Unavailable Frw, None Primary Care Provider Unavailabl e Allison Smyth Primary Care Provider [phone] Lyndsey Guzman MD Primary Care Provider + [phone] Carine Smallwood MD Unavailable +[phone] Vee Levy-C Unavailable +[phone] Carine Smallwood MD Unavailable +[phone] Vee Levy-C Unavailable +[phone] Carine Smallwood MD Unavailable +[phone] Vee Levy-C Unavailable +[phone] Carine Smallwood MD Unavailable +[phone] Vee Levy-C Unavailable +[phone] Carine Smallwood MD Unavailable +[phone] Vee Levy-C Unavailable +[phone] Carine Smallwood MD Unavailable Vee Levy PA-C Unavailable Carine Smallwood MD Unavailable Vee Levy PA-C Unavailable Reason for Visit * Reason Onset Date Comments Refill Request 03/07/2006 zaida fine Encounter Details Date Type Department Care Team (Late st Contact Info) Description 03/07/2006 Refill [facility] [place] [facility] [address] [place] [id number] Collin Anthony MD Refill Request (zaida anthony) Social History Tobacco Use Types Packs/Day Years Used Date Smoking Tobacco: Every Day Cigarettes 1 10 Alcohol Use Standard Drinks/Week Comments Yes 0 (1 standard drink = 0.6 oz pur e alcohol) Social Sex and Gender Information Value Date Recorded Sex Assigned at Not on file Gender Identity Not on file Sexual Orientation Not on file documented as of this encounter Miscellaneous Notes * Telephone Encounter - Maral Price - 03/07/2006 2:56 PM CST Accepting this Rx will FAX it directly to the pharmacy. RINARIAN ASSISTANT documented in this encounter Plan of Treatment Not on file documented as of this encounter Visit Diagnoses Not on filedocumented in this encounter Care Teams Mental Retardation Aide Relationship Specialty Start Date End Date Devin Britt DO [address] [place] [address] PCP - General 04/18/05 09/04/11 Damian Dowell MD [address] [place] [address] PCP - Surgery 05/08/04 03/14/14 Clolin Anthony MD [address] [place] [address] PCP - Orthopaedics 01/23/06 02/19/18 Frw, None PCP - General Family Practice 09/05/11 09/18/13 Allison Smyth PCP - General Family Practice 09/19/13 08/27/20 Lyndsey Guzman MD [facility] [address] [place] [address] PCP - General Family Medicine 08/28/20 Carine Smallwood MD [address] [place] [address] Assigned Surgical Provider 09/17/20 Vee Levy PA-C [address] [place] [address] Assigned Surgical Provider 10/29/20 Carine Smallwood MD [address] [place] [address] Assigned Surgical Provider 11/05/20 Vee Levy PA-C [address] [place] [address] Assigned Surgical Provider 12/03/20 Carine Smallwood MD [address] [place] [address] Assigned Surgical Provider 12/31/20 Vee Levy PA-C [address] [place] [address] Assigned Surgical Provider 03/11/21 Carine Smallwood MD [address] [place] [address] Assigned Surgical Provider 02/25/21 Vee Levy PA-C [address] [place] [address] Assigned Surgical Provider 02/11/21 Carine Smallwood MD [address] [place] [address] Assigned Surgical Provider 03/25/2104/14/21 Vee Levy PA-C [address] [place] [address] Assigned Surgical Provider 04/15/2104/21/21 Carine Smallwood MD [address] [place] [address] Assigned Surgical Provider 05/27/2112/14/21 Vee Levy PA-C [address] [place] [address] Assigned Surgical Provider 05/20/2104/04 Carine Smallwood MD [address] [place] [address] Assigned Surgical Provider 04/22/2105/19/21 Vee Levy PA-C [address] [address] Assigned Surgical Provider 12/15/21 documented as of this encounter
--- OUTSIDE RECORDS SUMMARY | 2023-10-10 16:46 | XMS_ITS | Encounter Summary ---
Author Organization [facility] Address [address] [place] [address] Care Team Providers Care Operating System Programmer Name Role Phone Devin Britt DO Primary Care Provider Urvashi Mccabe MD Primary Care Provider Edwin Rangel MD Primary Care Provider [phone] Damian Dowell MD Unavailable +[phone] Collin Singh MD Unavailable Unavailable Frw, None Primary Care Provider Unavailabl Allison Porras Primary Care Provider [phone] Lyndsey Guzman MD Primary Care Provider Carine Smallwood MD Unavailable +[phone] Vee Levy-C Unavailable +[phone] Carine Smallwood MD Unavailable +[phone] Vee Levy-C Unavailable +[phone] Carine Smallwood MD Unavailable +[phone] Vee Levy-C Unavailable +[phone] Carine Smallwood MD Unavailable +[phone] Vee Levy-C Unavailable Carine Smallwood MD Unavailable Vee Levy PA-C Unavailable Carine Smallwood MD Unavailable Vee Levy PA-C Unavailable Carine Smallwood MD Unavailable ScottyVee norris PA-C Unavailable Reason for Visit * Reason Onset Date Comments Pain 05/21/2004 Encounter Details Date Type Department Care Team (Late st Contact Info) Description 05/21/2004 Telephone [facility] [place] Surgery [address] [place] [phone] Damian Dowell MD [address] [place] [id number] Pain Social History Tobacco Use Types Packs/Day Years Used Date Smoking Tobacco: Former Cigarettes 0.5 7 1 06/03/1996 - 04/02/2004 Alcohol Use Standard Drinks/Week Comments Not Asked 0 (1 standard drink = 0.6 oz pur e alcohol) Sex and Gender Information Value Date Recorded Sex Assigned at Not on file Gender Identity Not on file Sexual Orientation Not on file documented as of this encounter Miscellaneous Notes * Telephone Encounter - 05/21/2004 9:34 AM CSTPt still having pain.Would like rx for pain med.Suggested to pt to be seen again. ER OPERATOR documented in this encounter Plan of Treatment Not on file documented as of this encounter Visit Diagnoses Not on filedocumented in this encounter Care Teams Operating System Programmer Relationship Specialty Start Date End Date Devin Britt DO [address] [place] [address] PCP - General 04/18/05 09/04/11 Urvashi Mccabe MD [address] [place] [address] PCP - General 11/07/04 04/17/05 Edwin Rangel MD [facility] [address] [place] [address] PCP - General 05/08/04 11/06/04 Damian Dowell MD [address] [place] [address] PCP - Surgery 05/08/04 03/14/14 Collin Singh MD [address] [place] [address] PCP - Orthopaedics 01/23/06 02/19/18 Frw, None PCP - General Family Practice 09/05/11 09/18/13 Allison Smyth PCP - General Family Practice 09/19/13 08/27/20 Lyndsey Guzman MD [facility] [address], [place] [address] PCP - General Family Medicine 08/28/20 Carine Smallwood MD [address] [facility] [address] [place] [address] Assigned Surgical Provider 09/17/20 Vee Levy PA-C [address] [facility] [address] [place] [address] Assigned Surgical Provider 10/29/20 Carine Smallwood MD [address] [place] [address] Assigned Surgical Provider 11/05/20 Vee Levy PA-C [address] [place] [address] Assigned Surgical Provider 12/03/20 Carine Smallwood MD [address] [place] [address] Assigned Surgical Provider 12/31/20 Vee Levy PA-C [address] [place] [address] Assigned Surgical Provider 03/11/21 Carine Smallwood MD [address] [place] [address] Assigned Surgical Provider 02/25/21 Vee Levy PA-C [address] [place] [address] Assigned Surgical Provider 02/11/21 Carine Smallwood MD [address] [place] [address] Assigned Surgical Provider 03/25/2104/14/21 Vee Levy PA-C [address] [place] [address] Assigned Surgical Provider 04/15/2104/21/21 Carine Smallwood MD [address] [place] [address] Assigned Surgical Provider 05/27/2112/14/21 Vee Levy PA-C [address] [place] [address] Assigned Surgical Provider 05/20/2104/04 Carine Smallwood MD [address] [place] [address] Assigned Surgical Provider 04/22/2105/19/21 Vee Levy PA-C [address] [place] [address] Assigned Surgical Provider 12/15/21 documented as of this encounter
--- OUTSIDE RECORDS SUMMARY | 2023-10-10 16:46 | XMS_ITS | Encounter Summary ---
Author Organization [facility] Address [address] [place] [address] Care Team Providers Care Vat Operator Name Role Phone Devin Britt DO Primary Care Provider [phone] Damian Dowell MD Unavailable [phone] Collin Singh MD Unavailable Unavailable Frw, None Primary Care Provider Unavailabl e Allison Smyth Primary Care Provider +[phone] Lyndsye Guzman MD Primary Care Provider + [phone] Carine Smallwood MD Unavailable +[phone] Vee Levy-C Unavailable +[phone] Carine Smallwood MD Unavailable +[phone] Vee Levy-C Unavailable +[phone] Carine Smallwood MD Unavailable +[phone] Vee Levy-C Unavailable [phone] Carine Smallwood MD Unavailable +[phone] Vee Levy-C Unavailable +[phone] Carine Smallwood MD Unavailable +[phone] Vee Levy-C Unavailable +[phone] Carine Smallwood MD Unavailable +[phone] Vee Levy PA-C Unavailable +[phone] Carine Smallwood MD Unavailable +[phone] Vee Levy PA-C Unavailable Encounter Details Date Type Department Care Team (Late st Contact Info) Description 05/06/2005 [facility] [place] Inpatient Dept [address] [place] [address] Frw, Inpatient Provider Social History Tobacco Use Types Packs/Day Years Used Date Smoking Tobacco: Every Day Cigarettes 1 10 Smokeless Tobacco: Never Alcohol Use Standard Drinks/Week Comments Yes 0 (1 standard drink = 0.6 oz pur e alcohol) Social drink/monthly Sex and Gender Information Value Date Recorded Sex Assigned at Not on file Gender Identity Not on file Sexual Orientation Not on file documented as of this encounter Progress Notes * Bernardino Key MD - 05/06/2005 8:25 AM [...] the anesthetic without complications. Bernardino Key M.D. Fadia cc: NERY OPERATOR HELPER CRUDE UNIT documented in this encounter Plan of Treatment Not on file documented as of this encounter Visit Diagnoses Not on filedocumented in this encounter Care Teams Vat Operator Relationship Specialty Start Date End Date Devin Britt DO [address] [place] [address] PCP - General 04/18/05 09/04/11 Damian Dowell MD [address] [place] [address] PCP - Surgery 05/08/04 03/14/14 Collin Singh MD [address] [place] [address] PCP - Orthopaedics 01/23/06 02/19/18 Frw, None PCP - General Family Practice 09/05/11 09/18/13 Allison Smyth PCP - General Family Practice 09/19/13 08/27/20 Lyndsey Guzman MD [facility] [address] [place] [address] PCP - General Family Medicine 08/28/20 Carine Smallwood MD [address] [place] [address] Assigned Surgical Provider 09/17/20 Vee Levy PA-C [address] [place] [address] Assigned Surgical Provider 10/29/20 Carine Smallwood MD [address] [place] [address] 741197 Assigned Surgical Provider 11/05/20 Vee Levy PA-C [address] [place] [address] 936897 Assigned Surgical Provider 12/03/20 Carine Smallwood MD [address] [place] [address] Assigned Surgical Provider 12/31/20 Vee Levy PA-C [address] [place] [address] Assigned Surgical Provider 03/11/21 Carine Smallwood MD [address] [place] [address] Assigned Surgical Provider 02/25/21 Vee Levy PA-C [address] [place] [address] Assigned Surgical Provider 02/11/21 Carine Smallwood MD [address] [place] [address] Assigned Surgical Provider 03/25/2104/14/21 Vee Levy PA-C [address] [place] [address] Assigned Surgical Provider 04/15/2104/21/21 Carine Smallwood MD [address] [place] [address] Assigned Surgical Provider 05/27/2112/14/21 Vee Levy PA-C [address] [place] [address] Assigned Surgical Provider 05/20/2104/04 Carine Smallwood MD [address] [place] [address] Assigned Surgical Provider 04/22/2105/19/21 Vee Levy PA-C [address] [place] [address] Assigned Surgical Provider 12/15/21 documented as of this encounter
--- OUTSIDE RECORDS SUMMARY | 2023-10-10 16:46 | XMS_ITS | Encounter Summary ---
Author Organization [facility] Address [address] [place] [address] Care Team Providers Care Seam Presser Name Role Phone Devin Britt DO Primary Care Provider [phone] Damian Dowell MD Unavailable [phone] Collin Singh MD Unavailable Unavailable Frw, None Primary Care Provider Unavailabl e Allison Smyth Primary Care Provider +[phone] Lyndsey Guzman MD Primary Care Provider + [phone] Carine Smallwood MD Unavailable +[phone] Vee Levy-C Unavailable +[phone] Carine Smallwood MD Unavailable +[phone] Vee Levy-C Unavailable +[phone] Carine Smallwood MD Unavailable +[phone] Vee Levy-C Unavailable +[phone] Carine Smallwood MD Unavailable +[phone] Vee Levy-C Unavailable +[phone] Carine Smallwood MD Unavailable +[phone] Vee Levy-C Unavailable +[phone] Carine Smallwood MD Unavailable [phone] Vee Levy PA-C Unavailable Carine Smallwood MD Unavailable Vee Levy PA-C Unavailable Reason for Visit * Reason Onset Date Comments Refill Request 05/30/2006 Francisco/zaida Encounter Details Date Type Department Care Team (Late st Contact Info) Description 05/30/2006 Refill [facility] [place] [facility] [address] [place] [address] Collin Singh MD Refill Request (Francisco/zaida) Social History Tobacco Use Types Packs/Day Years [...] encounter Miscellaneous Notes * Telephone Encounter - Charisse Casanova - 05/30/2006 10:15 AM CST Accepting this Rx will FAX it directly to the pharmacy. Last filled 04/17/06 Message left for pt as she has not been seen since [facility] and hasn't been able to make other appts and currently has no appt made. LLMENT ELIGIBILITY REPRESENTATIVE documented in this encounter Plan of Treatment Not on file documented as of this encounter Visit Diagnoses Not on filedocumented in this encounter Care Teams Seam Presser Relationship Specialty Start Date End Date Devin Britt DO [address] [place] [address] PCP - General 04/18/05 09/04/11 Damian Dowell MD [address] [place] [address] PCP - Surgery 05/08/04 03/14/14 Collin Singh MD [address] [place] [address] PCP - Orthopaedics 01/23/06 02/19/18 Frw, None PCP - General Family Practice 09/05/11 09/18/13 Libra Sabihalatisha PCP - General Family Practice 09/19/13 08/27/20 Lyndsey Guzman MD [facility] [address], [place] [address] PCP - General Family Medicine 08/28/20 Carine Smallwood MD [address] [place] [address] Assigned Surgical Provider 09/17/20 Vee Levy PA-C [address] [place] [address] Assigned Surgical Provider 10/29/20 Carine Smallwood MD [address] [place] [address] Assigned Surgical Provider 11/05/20 Vee Levy PA-C [address] [place] [address] Assigned Surgical Provider 12/03/20 Carine Smallwood MD [address] [place] [address] Assigned Surgical Provider 12/31/20 Vee Levy PA-C [address] [place] [address] Assigned Surgical Provider 03/11/21 Carine Smallwood MD [address] [place] [address] Assigned Surgical Provider 02/25/21 Vee Levy PA-C [address] [place] [address] Assigned Surgical Provider 02/11/21 Carine Smallwood MD [address] [place] [address] Assigned Surgical Provider 03/25/2104/14/21 Vee Levy PA-C [address] [place] [address] Assigned Surgical Provider 04/15/2104/21/21 Carine Smallwood MD [address] [place] [address] Assigned Surgical Provider 05/27/2112/14/21 Vee Levy PA-C [address] [place] [address] Assigned Surgical Provider 05/20/2104/04 Carine Smallwood MD [address] [facility] [address] [place] [address] Assigned Surgical Provider 04/22/2105/19/21 Vee Levy PA-C [address] [facility] [address] [place], [place] [address]287 Assigned Surgical Provider 12/15/21 documented as of this encounter
== END 2023-10-10 16:44 | disposition home or self-care (01) ==
PROVIDERS: PCP Physician Assistant Medical; Visit Provider Physician Assistant Medical
DX: Z12.2 Encounter for screening for malignant neoplasm of respiratory organs (principal); R91.1 Solitary pulmonary nodule; Z87.891 Personal history of nicotine dependence
CPT/HCPCS: 71250

== ENCOUNTER 2023-10-27 17:08 | Outpatient (CLI) | payer MEDICAID, SELFPAY ==
--- OUTSIDE RECORDS SUMMARY | 2023-10-29 07:45 | XMS_ITS | Encounter Summary ---
Author Organization [facility] Address [address] [place] [address] Care Team Providers Care Service Technician Copier Name Role Phone Devin Britt DO Primary Care Provider [phone] Damian Dowell MD Unavailable [phone] Collin Singh MD Unavailable Unavailable Frw, None Primary Care Provider Unavailabl e Allison Smyth Primary Care Provider [phone] Lyndsey Guzman MD Primary Care Provider + [phone] Carine Smallwood MD Unavailable +[phone] Vee Levy-C Unavailable +[phone] Carine Smallwood MD Unavailable +[phone] Vee Levy-C Unavailable +[phone] Carine Smallwood MD Unavailable +[phone] Vee Levy-C Unavailable +[phone] Carine Smallwood MD Unavailable +[phone] Vee Levy-C Unavailable +[phone] Carine Smallwood MD Unavailable +[phone] Vee Levy-C Unavailable +[phone] Carine Smallwood MD Unavailable +[phone] Vee Levy PA-C Unavailable +[phone] Carine Smallwood MD Unavailable +[phone] Vee Levy PA-C Unavailable Encounter Details Date Type Department Care Team (Late st Contact Info) Description 05/06/2005 [facility] [place] Inpatient Dept [address] [place] [address] Frw, Inpatient Provider Social History [...] without complications. Bernardino Key M.D. Fadia cc: NG INTERN documented in this encounter Plan of Treatment Not on file documented as of this encounter Visit Diagnoses Not on filedocumented in this encounter Care Teams Service Technician Copier Relationship Specialty Start Date End Date Devin Britt DO [address] [place] [address] PCP - General 04/18/05 09/04/11 Damian Dowell MD [address] [place] [address] PCP - Surgery 05/08/04 03/14/14 Collin Singh MD [address] [place] [address] PCP - Orthopaedics 01/23/06 02/19/18 Frw, None PCP - General Family Practice 09/05/11 09/18/13 Allison Smyth PCP - General Family Practice 09/19/13 08/27/20 Lyndsey Guzman MD [facility] [address] [place] [address] PCP - General Family Medicine 08/28/20 Carine Smallwood MD [address] [facility] [address] [place] [address] 136097 Assigned Surgical Provider 09/17/20 Vee Levy PA-C [address] [place] [address] 702307 Assigned Surgical Provider 10/29/20 Carine Smallwood MD [address] [place] [address] 274317 Assigned Surgical Provider 11/05/20 Vee Levy PA-C [address] [place] [address] 843327 Assigned Surgical Provider 12/03/20 Carine Smallwood MD [address] [place] [address] Assigned Surgical Provider 12/31/20 Vee Levy PA-C [address] [place] [address] Assigned Surgical Provider 03/11/21 Carine Smallwood MD [address] [place] [address] Assigned Surgical Provider 02/25/21 Vee Levy PA-C [address] [place] [address] Assigned Surgical Provider 02/11/21 Carine Smallwood MD [address] [place] [address] Assigned Surgical Provider 03/25/2104/14/21 Vee Levy PA-C [address] [place] [address] Assigned Surgical Provider 04/15/2104/21/21 Carine Smallwood MD [address] [place] [address] Assigned Surgical Provider 05/27/2112/14/21 Vee Levy PA-C [address] [place] [address] Assigned Surgical Provider 05/20/2104/04 Carine Smallwood MD [address] [place] [address] Assigned Surgical Provider 04/22/2105/19/21 Vee Levy PA-C [address] [place] [address] Assigned Surgical Provider 12/15/21 documented as of this encounter
--- OUTSIDE RECORDS SUMMARY | 2023-10-29 07:45 | XMS_ITS | Referral Summary ---
Author Organization [place] Address [address] [place] [address] Care Team Providers Care Fisher Diver Net Name Role Phone Lyndsey Guzman MD Primary Care Provider [phone] Allergies Active Allergy Reactions Criticality Noted Date [...] Overview: Added automatically from request for surgery [id number] Tear of medial cartilage or meniscus of [...] A.M.A. LIPID PANEL Routine 04/25/2005 4:53 PM SUPERVISOR ACCOUNTS RECEIVABLE Herpes Simplex Nos Acne Nec HCL PAP THIN LAYER SCREEN Routine 04/25/2005 12:00 AM SUPERVISOR ACCOUNTS RECEIVABLE Routine Medical Exam C MAMMOGRAM, SCREENING Routine 05/02/2004 Symptoms In Breast Nec Dysuria from Last 3 Months or Most Recently Relevant to Health Maintenance Results * (ABNORMAL) Glucose by meter (10/10/2020 5:29 AM CDT) Glucose 128(H) 70 - 99 mg/dL 10/10/2020 5:35 AM CDT POINT OF CARE TEST, GLUCOSE 10/10/2020 5:29 AM CDT 10/10/2020 5:35 AM CDT Carine Smallwood [facility] POINT OF CARE TEST, GLUCOSE [...] correlate. ALTHEA NINO MD Pauline Ryan MD [facility] ORDERABLES * COLONOSCOPY (08/30/2005) Devin Lopez DO PROCEDURES Performing Organization Address [facility] de Phone Number [facility] [place] [address] * (ABNORMAL) A.M.A. LIPID PANEL (04/25/2005 4:53 PM SUPERVISOR ACCOUNTS RECEIVABLE) Cholesterol 180 0 - 200 mg/dL [facility]RAD Comment: LDL Cholesterol is the primary guide to therapy: LDL-cholesterol goal in high risk patients is <100 mg/dL and in very high risk patients is <70 mg/dL. The NCEP recommends further evaluation of: patients with cholesterol <200 mg/dL if additional risk factors are present, cholesterol >240 mg/dL, triglycerides >150 mg/dL, or HDL <40 mg/dL. Triglycerides 190(H) 0 - 150 mg/dL [facility] HDL Cholesterol 35(L) 50 - 110 mg/dL [facility]RAD LDL Cholesterol Calculated 107 0 - 129 mg/dL [facility] Comment: LDL Cholesterol is the primary guide to therapy: LDL-cholesterol goal in high risk patients is <100 mg/dL and in very high risk patients is <70 mg/dL. VLDL-Cholesterol 38(H) 0 - 30 mg/dL [facility]RAD Cholesterol/HDL Ratio 5.1(H) 0.0 - 5.0 [facility]RAD 04/25/2005 4:53 PM SUPERVISOR ACCOUNTS RECEIVABLE 04/25/2005 5:03 PM SUPERVISOR ACCOUNTS RECEIVABLE Devin Lopez DO LABORATORY Performing Organization Address [facility] Co de Phone Number [facility] [place] [address] * A THIN LAYER PAP SCREEN (04/25/2005 12:00 AM SUPERVISOR ACCOUNTS RECEIVABLE) PAP JITENDRA Bolden Report Patient Name: RUBY CHRISTIAN MR#: [id number] Specimen #: [id number] Collected: 04/25/2005 Received: 04/28/2005 Reported: 05/01/2005 10:12 Ordering Phy(s): DEVIN LOPEZ SPECIMEN/STAIN PROCESS: Pap thin layer prep screening (SurePath) ? Pap-Cyto x 1, Reflex HPV x 1 SOURCE: Cervical, endocervical Pap thin layer prep screening (SurePath) SPECIMEN ADEQUACY: Satisfactory for evaluation. -Transitional zone component present. CYTOLOGIC INTERPRETATION: Negative for Intraepithelial Lesion or Malignancy Electronically signed out by: ALANNA Booth (ASCP) Processed at [facility], screened at [facility] CLINICAL HISTORY: LMP: no lmp recorded Previous normal pap: 05-02-04, TESTING LAB LOCATION: [address] [address] COLLECTION SITE: Client: ??[facility] Location: [facility] 04/25/2005 04/28/2005 8:0 1 AM SUPERVISOR ACCOUNTS RECEIVABLE Devin Lopez DO LABORATORY COPATH * MAMMOGRAM, SCREENING (05/02/2004) MAMMOGRAM CAT [address] [facility] LAB/RAD Anatomical Region Laterality Modality Other Narrative [...] Advance Directives For more information, please contact: [phone] * Full Code (Latest Code Status on File) Date Activated Date Inactivated Comments 10/09/2020 2:28 PM 10/10/2020 1:54 PM All basic an d advanced life-sustaining interventions are performed as appropriate Post op Question Answer Comments Code status determined by: Other (please documen t) Care Teams Fisher Diver Net Relationship Specialty Start Date End Date Lyndsey Guzman MD [facility] [address] [address] PCP - General Family Medicine 08/28/20
--- OUTSIDE RECORDS SUMMARY | 2023-10-29 07:45 | XMS_ITS | Encounter Summary ---
Author Organization [place] Address [address] [place] [address] Care Team Providers Care Application Packaging Consultant Name Role Phone Devin Britt DO Primary Care Provider [phone] Damian Dowell MD Unavailable [phone] Collin Anthony MD Unavailable Unavailable Frw, None Primary Care Provider Unavailabl e Allison Smyth Primary Care Provider [phone] Lyndsey Guzman MD Primary Care Provider + [phone] Carine Smallwood MD Unavailable [phone] Vee Levy-C Unavailable [phone] Carine Smallwood MD Unavailable [phone] Vee Levy-C Unavailable [phone] Carine Smallwood MD Unavailable [phone] Vee Levy-C Unavailable [phone] Carine Smallwood MD Unavailable [phone] Vee Levy-C Unavailable [phone] Carine Smallwood MD Unavailable [phone] Vee Levy-C Unavailable [phone] Carine Smallwood MD Unavailable Vee Levy PA-C Unavailable Carine Smallwood MD Unavailable Vee Levy PA-C Unavailable Reason for Visit * Reason Onset Date Comments Refill Request 03/07/2006 zaida fine Encounter Details Date Type Department Care Team (Late st Contact Info) Description 03/07/2006 Refill [facility] [address] [place] [address] Collin Anthony MD Refill Request (zaida [...] will FAX it directly to the pharmacy. GRAPHICAL DRAFTER documented in this encounter Plan of Treatment Not on file documented as of this encounter Visit Diagnoses Not on filedocumented in this encounter Care Teams Application Packaging Consultant Relationship Specialty Start Date End Date Devin Britt DO [address] [place] [address] PCP - General 04/18/05 09/04/11 Damian Dowell MD [address] [place] [address] PCP - Surgery 05/08/04 03/14/14 Collin Anthony MD [address] [place] [address] PCP - Orthopaedics 01/23/06 02/19/18 Frw, None PCP - General Family Practice 09/05/11 09/18/13 Allison Smyth PCP - General Family Practice 09/19/13 08/27/20 Lyndsey Guzman MD [facility] [address] [place] [address] PCP - General Family Medicine 08/28/20 Carine Smallwood MD [address] [place] [address] Assigned Surgical Provider 09/17/20 Vee Levy PA-C [address] [place] [address] Assigned Surgical Provider 10/29/20 Carine Smallwood MD [address] [place] [address] Assigned Surgical Provider 11/05/20 Vee Levy PA-C [address] [place] [address] Assigned Surgical Provider 12/03/20 Carine Smallwood MD [address] [place] [address] Assigned Surgical Provider 12/31/20 Vee Levy PA-C [address] [place] [address] Assigned Surgical Provider 03/11/21 Carine Smallwood MD [address] [place] [address] Assigned Surgical Provider 02/25/21 Vee Levy PA-C [address] [place] [address] Assigned Surgical Provider 02/11/21 Carine Smallwood MD [address] [place] [address] Assigned Surgical Provider 03/25/2104/14/21 Vee Levy PA-C [address] [place] [address] Assigned Surgical Provider 04/15/2104/21/21 Carine Smallwood MD [address] [place] [address] Assigned Surgical Provider 05/27/2112/14/21 Vee Levy PA-C [address] [place] [address] Assigned Surgical Provider 05/20/2104/04 Carine Smallwood MD [address] [place] [address] Assigned Surgical Provider 04/22/2105/19/21 Vee Levy PA-C [address] [address] Assigned Surgical Provider 12/15/21 documented as of this encounter
--- OUTSIDE RECORDS SUMMARY | 2023-10-29 07:45 | XMS_ITS | Clinical Summary ---
Author Organization [place] Address [address] [place] [address] Care Team Providers Care Bacon Skinner Name Role Phone Lyndsey Guzman MD Primary Care Provider [phone] Allergies Active Allergy Reactions Criticality Noted Date [...] Overview: Added automatically from request for surgery [id number] Tear of medial cartilage or meniscus of [...] per calendar year) 2023 GLUCOSE 10/11/2023 10/10/2020, 042 08/2009, 06/27/2008, Additional history exists INFLUENZA VACCINE (#1) 2023 , 03/18/2019, 01/30/2018, Additional history exists HPV IMMUNIZATION [...] A.M.A. LIPID PANEL Routine 04/25/2005 4:53 PM FIRE ALARM MECHANIC Herpes Simplex Nos Acne Nec HCL PAP THIN LAYER SCREEN Routine 04/25/2005 12:00 AM FIRE ALARM MECHANIC Routine Medical Exam C MAMMOGRAM, SCREENING Routine 05/02/2004 Symptoms In Breast Nec Dysuria from Last 3 Months or Most Recently Relevant to Health Maintenance Results * (ABNORMAL) Glucose by meter (10/10/2020 5:29 AM CDT) Glucose 128(H) 70 - 99 mg/dL 10/10/2020 5:35 AM CDT POINT OF CARE TEST, GLUCOSE 10/10/2020 5:29 AM CDT 10/10/2020 5:35 AM CDT Carine Smallwood MD [facility] POCT POINT OF CARE TEST, GLUCOSE * [...] breast implant rupture. Please clinically correlate. ? ALTHAE NINO MD Narrative 09/21/2013 11:07 AM CDT [...] Devin Lopez DO PROCEDURES Performing Organization Address City/State/[facility] de Phone Number [facility] [place] [place] [address] * (ABNORMAL) A.M.A. LIPID PANEL (04/25/2005 4:53 PM FIRE ALARM MECHANIC) Cholesterol 180 0 - 200 mg/dL [facility]/RAD Comment: LDL Cholesterol is the primary guide to therapy: LDL-cholesterol goal in high risk patients is <100 mg/dL and in very high risk patients is <70 mg/dL. The NCEP recommends further evaluation of: patients with cholesterol <200 mg/dL if additional risk factors are present, cholesterol >240 mg/dL, triglycerides >150 mg/dL, or HDL <40 mg/dL. Triglycerides 190(H) 0 - 150 mg/dL [facility] HDL Cholesterol 35(L) 50 - 110 mg/dL [facility] LDL Cholesterol Calculated 107 0 - 129 mg/dL [facility] Comment: LDL Cholesterol is the primary guide to therapy: LDL-cholesterol goal in high risk patients is <100 mg/dL and in very high risk patients is <70 mg/dL. VLDL-Cholesterol 38(H) 0 - 30 mg/dL [facility] Cholesterol/HDL Ratio 5.1(H) 0.0 - 5.0 [facility] 04/25/2005 4:53 PM FIRE ALARM MECHANIC 04/25/2005 5:03 PM FIRE ALARM MECHANIC Devin Lopez DO LABORATORY Performing Organization Address [facility] de Phone Number [facility] [place] [address] * A THIN LAYER PAP SCREEN (04/25/2005 12:00 AM FIRE ALARM MECHANIC) PAP JITENDRA Bolden Report Patient Name: RUBY CHRISTIAN MR#: [id number] Specimen #: [id number] Collected: 04/25/2005 Received: 04/28/2005 Reported: 05/01/2005 10:12 Ordering Phy(s): DEVIN LOPEZ SPECIMEN/STAIN PROCESS: Pap thin layer prep screening (SurePath) ? Pap-Cyto x 1, Reflex HPV x 1 SOURCE: Cervical, endocervical Pap thin layer prep screening (SurePath) SPECIMEN ADEQUACY: Satisfactory for evaluation. -Transitional zone component present. CYTOLOGIC INTERPRETATION: Negative for Intraepithelial Lesion or Malignancy Electronically signed out by: ALANNA Booth (ASCP) Processed at [facility], screened at [facility] CLINICAL HISTORY: LMP: no lmp recorded Previous normal pap: 05-02-04, TESTING LAB LOCATION: [address] [address] COLLECTION SITE: Client: ??[facility] Location[facility] 04/25/2005 04/28/2005 8:0 1 AM FIRE ALARM MECHANIC Devin Lopez DO LABORATORY COPATH * MAMMOGRAM, SCREENING (05/02/2004) MAMMOGRAM CAT 2 [facility] LAB/RAD Anatomical Region Laterality Modality Other [...] Advance Directives For more information, please contact: [phone] * Full Code (Latest Code Status on File) Date Activated Date Inactivated Comments 10/09/2020 2:28 PM 10/10/2020 1:54 PM All basic an d advanced life-sustaining interventions are performed as appropriate Post op Question Answer Comments Code status determined by: Other (please documen t) Care Teams Bacon Skinner Relationship Specialty Start Date End Date Lyndsey Guzman MD [facility] [address] [place] [address] PCP - General Family Medicine 08/28/20
--- OUTSIDE RECORDS SUMMARY | 2023-10-29 07:45 | XMS_ITS | Continuity of Care Document ---
Author Organization [facility] Address [address] [place] [address] Phone Care Team Providers Care Printing Table Worker Name Role Phone Johnna CARREON, PhD, Milo Unavailable Unavai lable Procedures Procedure Date Office/Outpatient Visit,[facility] 2023 Advance Directives Directive Yes / No Effective Date File Name No Information Encounters Encounter Description Practice Location Reason(s) For Visit Diagnoses Date Provider Providers Copied on Encounter [facility], [address], [place], [place], [id number], [place] tel:[phone] No Information Johnna Pedraza. [facility], [address], [place], [address], [place]. tel:[phone] Office/Outpat ient Visit,[facility], [address], [place], [place], [id number], [place] tel:[phone] [facility] Low back pain, unspecified Johnna Pedraza. [facility], [address], [place], [address], [place]. tel:[phone] Referring Provider: Preston Li, [facility] [address] [facility] [address], [place], [address]. tel:[phone] Family History Family Member Type Diagnosis Age At Onset No Information Payers Payer name Insurance type Covered libertarian ID Authorjanice bonner(s) [employer] [facility] [id number] [facility] Michael 2021 [id number] Social History Type Description Quantity Date Captured [...]
--- OUTSIDE RECORDS SUMMARY | 2023-10-29 07:45 | XMS_ITS | Encounter Summary ---
Author Organization [place] Address [address] [place] [address] Care Team Providers Care Dive Master Name Role Phone Devin Britt DO Primary Care Provider [phone] Damian Dowell MD Unavailable [phone] Collin Singh MD Unavailable Unavailable Frw, None Primary Care Provider Unavailabl e Allison Smyth Primary Care Provider [phone] Lyndsey Guzman MD Primary Care Provider + [phone] Carine Smallwood MD Unavailable [phone] Vee Levy-C Unavailable [phone] Carine Smallwood MD Unavailable [phone] Vee Levy-C Unavailable [phone] Carine Smallwood MD Unavailable [phone] Vee Levy-C Unavailable [phone] Carine Smallwood MD Unavailable [phone] Vee Levy-C Unavailable [phone] Carine Smallwood MD Unavailable [phone] Vee Levy-C Unavailable [phone] Carine Smallwood MD Unavailable [phone] Vee Levy PA-C Unavailable [phone] Carine Smallwood MD Unavailable Vee Levy PA-C Unavailable Reason for Visit * Reason Onset Date Comments Refill Request 05/30/2006 Francisco/zaida Encounter Details Date Type Department Care Team (Late st Contact Info) Description 05/30/2006 Refill [facility] [place] [facility] [address] [place] [address] Collin Singh MD Refill Request [...] as she has not been seen [facility] and hasn't been able to make other appts and currently has no appt made. 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 Plan of Treatment Not on file documented as of this encounter Visit Diagnoses Not on filedocumented in this encounter Care Teams Dive Master Relationship Specialty Start Date End Date Devin Britt DO [address] [place] [address] PCP - General 04/18/05 09/04/11 Damian Dowell MD [address] [place] [address] PCP - Surgery 05/08/04 03/14/14 Collin Singh MD [address] [place] [address] PCP - Orthopaedics 01/23/06 02/19/18 Frw, None PCP - General Family Practice 09/05/11 09/18/13 Libra Sabihalatisha PCP - General Family Practice 09/19/13 08/27/20 Lyndsey Guzman MD [facility] [address] [address] PCP - General Family Medicine 08/28/20 Carine Smallwood MD [address] [place] [address] Assigned Surgical Provider 09/17/20 Vee Levy PA-C [address] [place] [address] Assigned Surgical Provider 10/29/20 Carine Smallwood MD [address] [place] [address] Assigned Surgical Provider 11/05/20 Vee Levy PA-C [address] [place] [address] Assigned Surgical Provider 12/03/20 Carine Smallwood MD [address] [place] [address] Assigned Surgical Provider 12/31/20 Vee Levy PA-C [address] [place] [address] Assigned Surgical Provider 03/11/21 Carine Smallwood MD [address] [place] [address] Assigned Surgical Provider 02/25/21 Vee Levy PA-C [address] [place] [address] Assigned Surgical Provider 02/11/21 Carine Smallwood MD [address] [place] [address] Assigned Surgical Provider 03/25/2104/14/21 Vee Levy PA-C [address] [place] [address] Assigned Surgical Provider 04/15/2104/21/21 Carine Smallwood MD [address] [place] [address] Assigned Surgical Provider 05/27/2112/14/21 Vee Levy PA-C [address] [place] [address] Assigned Surgical Provider 05/20/2104/04 Carine Smallwood MD [address] [facility] [address] [place] [address] Assigned Surgical Provider 04/22/2105/19/21 Vee Lvey PA-C [address] [facility] [address] [place], [place] [address] Assigned Surgical Provider 12/15/21 documented as of this encounter
--- OUTSIDE RECORDS SUMMARY | 2023-10-29 07:45 | XMS_ITS | Continuity of Care Document ---
Author Organization [facility] Address [address] [place] [address] [place] [address] Phone Care Team Providers Care Building Consultant Name Role Phone Will Celestino MARTINEZ Unavailable [...] tablet - Active Flonase 50 mcg/actuation Nasal [place] - Active dicyclomine 10 mg capsule - Active Procedures Procedure Date OFFICE CONSULTATION Advance Directives Directive Yes / No Effective Date File Name No Information Encounters Encounter Description Practice Location Reason(s) For Visit Diagnoses Date Provider Providers Copied on Encounter [facility], [address] [place] [address], [id number] , [place] tel:[phone] [facility] [place] No Information 2 Will Celestino. [address] [facility] [place], [id number] , [place]. tel:[phone] OFFICE CONSULTATION [facility], [address] [facility] [place], [id number] , [place] [phone] [facility] [place] widespread pain (chief complaint) LumbagoCervicalgiaP ain in joint involving ankle and footMyalgia and myositis, unspecifiedPain in joint involving shoulder regionPain in joint involving pelvic region and thighDepressionHype rtension, Benign 3 Devin Dunnw. [address] [place] [place], [id number] , . tel:[phone] Referring Provider: Celestino Garcia, [address] [place], [address] . tel:[phone] Family History Family Member Type Diagnosis Age [...]
--- OUTSIDE RECORDS SUMMARY | 2023-10-29 07:45 | XMS_ITS | Encounter Summary ---
Author Organization [facility] Address [address] [place] [address] Care Team Providers Care Spooling Operator Name Role Phone Devin Britt DO Primary Care Provider Urvashi Mccabe MD Primary Care Provider Edwin Rangel MD Primary Care Provider Damian Dowell MD Unavailable [phone] Collin Singh MD Unavailable Unavailable Frw, None Primary Care Provider Unavailabl Allison Porras Primary Care Provider Lyndsey Guzman MD Primary Care Provider Carine Smallwood MD Unavailable [phone] Vee Levy-C Unavailable [phone] Carine Smallwood MD Unavailable [phone] Vee Levy-C Unavailable [phone] Carine Smallwood MD Unavailable [phone] Vee Levy-C Unavailable [phone] Carine Smallwood MD Unavailable [phone] Vee Levy-C Unavailable [phone] Carine Smallwood MD Unavailable Vee Levy PA-C Unavailable Carine Smallwood MD Unavailable Vee Levy PA-C Unavailable Carine Smallwood MD Unavailable ScottyVee norris PA-C Unavailable Reason for Visit * Reason Onset Date Comments Pain 05/21/2004 Encounter Details Date Type Department Care Team (Late st Contact Info) Description 05/21/2004 Telephone [facility] [place] Surgery [address] [place] [address] Damian Dowell MD [address] [place] [id number] Pain Social History Tobacco Use Types Packs/Day [...] med.Suggested to pt to be seen again. 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 documented in this encounter Plan of Treatment Not on file documented as of this encounter Visit Diagnoses Not on filedocumented in this encounter Care Teams Spooling Operator Relationship Specialty Start Date End Date Devin Britt DO [address] [place] [address] PCP - General 04/18/05 09/04/11 Urvashi Mccabe MD [address] [place] [address] PCP - General 11/07/04 04/17/05 Edwin Rangel MD [facility] [address] [place] [address] PCP - General 05/08/04 11/06/04 Damian Dowell MD [address] [place] [address] PCP - Surgery 05/08/04 03/14/14 Collin Singh MD [address] [place] [address] PCP - Orthopaedics 01/23/06 02/19/18 Frw, None PCP - General Family Practice 09/05/11 09/18/13 Allison Smyth PCP - General Family Practice 09/19/13 08/27/20 Lyndsey Guzman MD [facility] [address] [address] PCP - General Family Medicine 08/28/20 Carine Smallwood MD [address] [facility] [address] [place] [address] Assigned Surgical Provider 09/17/20 Vee Levy PA-C [address] [facility] [address] [place] [address] Assigned Surgical Provider 10/29/20 Carine Smallwood MD [address] [place] [address] Assigned Surgical Provider 11/05/20 Vee Levy PA-C [address] [place] [address] Assigned Surgical Provider 12/03/20 Carine Smallwood MD [address] [place] [address] Assigned Surgical Provider 12/31/20 Vee Levy PA-C [address] [place] [address] Assigned Surgical Provider 03/11/21 Carine Smallwood MD [address] [place] [address] Assigned Surgical Provider 02/25/21 Vee Levy PA-C [address] [place] [address] Assigned Surgical Provider 02/11/21 Carine Smallwood MD [address] [place] [address] Assigned Surgical Provider 03/25/2104/14/21 Vee Levy PA-C [address] [place] [address] Assigned Surgical Provider 04/15/2104/21/21 Carine Smallwood MD [address] [place] [address] Assigned Surgical Provider 05/27/2112/14/21 Vee Levy PA-C [address] [place] [address] Assigned Surgical Provider 05/20/2104/04 Carine Smallwood MD [address] [place] [address] Assigned Surgical Provider 04/22/2105/19/21 Vee Levy PA-C [address] [place] [address] Assigned Surgical Provider 12/15/21 documented as of this encounter
--- OUTSIDE RECORDS SUMMARY | 2023-10-29 07:46 | XMS_ITS | Clinical Summary ---
Author Organization [facility] Address [place], [place] [address] Care Team Providers Care Infection Control Coordinator Name Role Phone Anthony Christy Yap PT Primary Care Provider [phone] Allergies No known active allergies Medications Medication [...] Comments Blood Pressure 117/60 05/24/2015 2:50 PM [facility]OM [employer]OP DRIVER Pulse 85 05/24/2015 2:50 PM [facility] DRIVER Temperature 36.3 ??C (97.3 ??F) 05/24/2015 1:41 PM CS T Respiratory Rate 16 05/24/2015 2:50 PM [facility]OM HOOP DRIVER Oxygen Saturation 96% 05/24/2015 2:50 PM [facility] DRIVER Inhaled Oxygen Concentration - - Weight 86.5 kg (190 lb 11.2 oz) 016 10:28 AM [facility]OM [employer] DR[facility] Height 167.6 cm (5' 5.98) 05/23/2015 8:44 AM CS T Body Mass Index 30.79 05/23/2015 8:44 AM BOTTOM [employer] DRIVER Plan of Treatment Health Maintenance Due Date [...] this topic Medical Devices Implanted Type Area Rotary Drier Device Identifier Shelf Expiration Date Model / Serial / Lot Ancr Sut 2.4x8.5mm S[employer] Micro W/2-0 Fiber[employer] - [id number] Implanted:Qty: 1 on 05/24/2015 by Jon Mcpherson MD at [facility] Left: Elbow [employer] 01/11/2017 [id number] CNF # / / [id number] Procedures Procedure Name Priority Date/Time Associated Diagnosis Comments BULK TANK CAR UNLOADER THIN PREP PAP SCREEN IMAGED Routine 05/31/2020 2:30 PM [facility] DRIVER LIPID PANEL W REFLEX MEASURED LDL Routine 05/22/2010 10:05 AM [employer] DRIVER Screening for lipoid disorders from Last 3 Months or Most Recently Relevant to Health Maintenance Results * BULK TANK CAR UNLOADER THIN PREP PAP SCREEN IMAGED (05/31/2020 2:30 PM BOTTOM HO[employer] DRIVER) Case Report Gynecologic Cytology Report ? Case: [id number] ? Authorizing Provider: ??Unknown, Doctor ?Collected: ? 05/31/2020 1430 ? Ordering Location: ? [facility] ?Received: ?06/02/2020 0811 ? First Screen: ?Nick, Denzel ? Specimen: ?BULK TANK CAR UNLOADER ThinPrep Vial Screening, Cervical/Vaginal ? 06/10/2020 1:27 PM [facility] INTERPRETATION/ RESULT NEGATIVE FOR INTRAEPITHELIAL LESION OR MALIGNANCY (NIL) (none) 06/10/2020 1:27 PM [facility] IMEN ADEQUACY Satisfactory for evaluation Endocervical component present 06/10/2020 1:27 PM [facility] HPV REQUEST HPV and PAP 06/10/2020 1:27 PM [facility] Menstrual Status 06/10/2020 1:27 PM [facility] Comment:Menopause Additional Information 06/10/2020 1:27 PM [facility] Comment: Interpreted at [facility] [employer] [facility] - [address], [place] [address] Automated Review Successful 06/10/2020 1:27 PM [facility] Comment:Specimen processed s uccessfully by automated senior tax analyst device, [employer] Imaging System, [employer] ANCILLARY TESTING BULK TANK CAR UNLOADER HPV Ordered, Please see separate report 06/10/2020 1:27 PM [facility] DRIVER [facility] Note The pap test [...] pre-malignant and malignant lesions. 06/10/2020 1:27 PM [facility] DRIVER [facility] Other (Cervical/Vagina l) 05/31/2020 2:30 PM [employer] DRIVER 06/02/2020 8:11 AM B[employer] HOOP DRIVER Doctor Unknown PATHOLOGY/CYTOLOGY [facility] [address] [place] [address], [place] * (ABNORMAL) LIPID PANEL W REFLEX MEASURED LDL (05/22/2010 10:05 AM BOTTOM HOOP DRIVER) CHOLESTEROL,TOTAL 110 110 - 199 mg/dL [facility] TRIGLYCERIDES 38(L) 40 - 149 mg/dL [facility] HDL CHOLESTEROL 43 >40 mg/dL [facility] CHOL/HDL RATIO 2.56 <4.51 [facility] LDL CHOLESTEROL 59 <131 mg/dL [facility] PATIENT STATUS Fasting [facility] Blood specimen (specimen) BLOOD SPECIMEN / Unknown 05/22/2010 10:05 AM [employer] HO[employer] DRIVER 05/22/2010 9:33 AM [employer] DRIVER Norberto Nicholson MD CHEMISTRY [facility] INTERNAL ZIP [id number] [address] from Last 3 Months or Most Recently Relevant to Health Maintenance Advance Directives * Full Code (Latest Code Status on File) Date Activated Date Inactivated Comments 05/24/2015 1:33 PM 05/24/2015 5:10 PM * Full Code Date Activated Date Inactivated Comments 05/24/2015 10:17 AM 05/24/2015 1:33 PM Care Teams Infection Control Coordinator Relationship Specialty Start Date End Date Christy Cruz PT [address] [facility] [place] [id number] PCP - General Physical Therapist 05/22/15
== END 2023-10-27 17:09 | disposition home or self-care (01) ==
LOC: NFLDREF 10-29 07:43
PROVIDERS: PCP Physician Assistant Medical; Referring Provider Physician Assistant Medical; Visit Provider Physician Assistant Medical
DX: R35.0 Frequency of micturition (principal); N39.0 Urinary tract infection, site not specified; B37.9 Candidiasis, unspecified; L02.91 Cutaneous abscess, unspecified; Z01.818 Encounter for other preprocedural examination
CPT/HCPCS: 87086; 87186

== ENCOUNTER 2023-12-01 07:43 | Inpatient (IN) | payer MEDICAID, SELFPAY ==
[2023-12-01] VITALS (25 sets, daily range): BP systolic 95–131; BP diastolic 56–82; PULSE 60–82; RESP 16–18; TEMP 35.9–36.9; O2SAT 96–100; BMI 26.6; BMI 27.0
[2023-12-01] MEDS: 0.9 % SODIUM CHLORIDE 1000 ml 1,000 ML IV (08:00)
--- NOTE | 2023-12-01 08:17 | CRLHL7_ITS ---
For Patients: As a result of the Century Cures Act, medical imaging exams and procedure reports are released immediately into your electronic medical record. You may view this report before your referring provider. If you have questions, please contact your health care provider. CLINICAL HISTORY: Dizziness; upper extremity numbness and tingling. TECHNIQUE: Standard helical CT image acquisition through the neck was performed after intravenous contrast bolus enhancement. 3D and MIP reconstructions were performed at a separate workstation and permanently archived. COMPARISON: None available. FINDINGS: The origins of the great vessels from the aortic arch are patent. The common carotid arteries are patent. No significant luminal stenoses of the proximal ICAs by NASCET criteria. The more distal cervical segments of the ICAs are patent. The origins and cervical segments of the vertebral arteries are patent. There are several foci of air along the left anterior chest wall, just deep to the breast implant, of unknown clinical significance. IMPRESSION: Patent cervical arterial vasculature without hemodynamically significant luminal stenosis. Please note that all CT scans at this facility use dose modulation, iterative reconstruction, and/or weight-based dosing when appropriate to reduce radiation dose to as low as reasonably achievable. Dictated by Donn Pritchard MD @ 12/01/2023 10:29:35 AM (Electronically Signed)
--- NOTE | 2023-12-01 08:17 | CRLHL7_ITS ---
For Patients: As a result of the Century Cures Act, medical imaging exams and procedure reports are released immediately into your electronic medical record. You may view this report before your referring provider. If you have questions, please contact your health care provider. CLINICAL HISTORY: Dizziness, bilateral upper extremity numbness and tingling. TECHNIQUE: Standard helical CT image acquisition through the head following the administration of intravenous contrast was performed. 3D and MIP reconstructions were performed at a separate workstation and permanently archived. COMPARISON: None available. FINDINGS: No intracranial proximal large vessel occlusion or flow-limiting luminal stenosis. No evidence of cerebral aneurysm. No findings to suggest an arterial-venous shunting lesion. The major dural venous sinuses and deep venous system are patent. IMPRESSION: No intracranial proximal large vessel occlusion, flow-limiting luminal stenosis, or cerebral aneurysm. Please note that all CT scans at this facility use dose modulation, iterative reconstruction, and/or weight-based dosing when appropriate to reduce radiation dose to as low as reasonably achievable. Dictated by Donn Pritchard MD @ 12/01/2023 10:32:18 AM (Electronically Signed)
--- NOTE | 2023-12-01 08:17 | CRLHL7_ITS ---
For Patients: As a result of the Century Cures Act, medical imaging exams and procedure reports are released immediately into your electronic medical record. You may view this report before your referring provider. If you have questions, please contact your health care provider. INDICATION: Dizziness, bilateral arm tingling and numbness. TECHNIQUE: CT head without contrast. COMPARISON: Concurrent neck CTA. FINDINGS: CSF spaces: Within normal limits for age. Brain parenchyma and extra-axial spaces: The neil-white differentiation is normal. No sign of mass, hemorrhage, or midline shift. No extra-axial fluid collection. Skull base and calvarium: The visualized paranasal sinuses and mastoid air cells demonstrate no acute or significant findings. The visualized orbits are grossly unremarkable. No skull fractures. IMPRESSION: 1. Unremarkable noncontrast head CT. 2. Please see concurrently performed neck CTA for further findings. Please note that all CT scans at this facility use dose modulation, iterative reconstruction, and/or weight-based dosing when appropriate to reduce radiation dose to as low as reasonably achievable. Dictated by Cici Henson MD @ 12/01/2023 9:30:01 AM (Electronically Signed)
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
--- OUTSIDE RECORDS SUMMARY | 2023-12-01 08:27 | XMS_ITS | Encounter Summary ---
Author Organization [facility] Address [address] [place] [address] Care Team Providers Care Watch And Clock Maker And Repairer Name Role Phone Devin Britt DO Primary Care Provider Urvashi Mccabe MD Primary Care Provider Edwin Rangel MD Primary Care Provider Damian Dowell MD Unavailable Collin Singh MD Unavailable Unavailable Frw, None Primary Care Provider Unavailabl Allison Porras Primary Care Provider yLndsey Guzman MD Primary Care Provider Carine Smallwood MD Unavailable [phone] Vee Levy-C Unavailable [phone] Carine Smallwood MD Unavailable [phone] Vee Levy-C Unavailable [phone] Carine Smallwood MD Unavailable [phone] Vee Levy-C Unavailable [phone] Carine Smallwood MD Unavailable [phone] Vee Levy-C Unavailable Carine Smlalwood MD Unavailable Vee Levy PA-C Unavailable Carine Smallwood MD Unavailable Vee Levy PA-C Unavailable Carine Smallwood MD Unavailable ScottyVee norris PA-C Unavailable Reason for Visit * Reason Onset Date Comments Pain 05/21/2004 Encounter Details Date Type Department Care Team (Late st Contact Info) Description 05/21/2004 Telephone [facility] in [place] Surgery [address] [place] [id number] Damian Dowell MD [address] [place] [id number] Pain Social History Tobacco Use Types Packs/Day [...] med.Suggested to pt to be seen again. EMASON documented in this encounter Plan of Treatment Not on file documented as of this encounter Visit Diagnoses Not on filedocumented in this encounter Care Teams Watch And Clock Maker And Repairer Relationship Specialty Start Date End Date Devin Britt DO [address] [place] [address] PCP - General 04/18/05 09/04/11 Urvashi Mccabe MD [address] [place] [address] PCP - General 11/07/04 04/17/05 Edwin Rangel MD [facility] [address] [place] [address] PCP - General 05/08/04 11/06/04 Damian Dowell MD [address] [place] [address] PCP - Surgery 05/08/04 03/14/14 Collin Singh MD [address] [place] [address] PCP - Orthopaedics 01/23/06 02/19/18 Frw, None PCP - General Family Practice 09/05/11 09/18/13 Allison Smyth PCP - General Family Practice 09/19/13 08/27/20 Lyndsey Guzman MD [facility] [address], [place] [address] PCP - General Family Medicine 08/28/20 Carine Smallwood MD [address] [facility] [address] [place] [address] Assigned Surgical Provider 09/17/20 Vee Levy PA-C [address] [facility] [address] [place] [address] Assigned Surgical Provider 10/29/20 Carine Smallwood MD [address] [place] [address] Assigned Surgical Provider 11/05/20 Vee Levy PA-C [address] [place] [address] Assigned Surgical Provider 12/03/20 Carine Smallwood MD [address] [place] [address] Assigned Surgical Provider 12/31/20 Vee Levy PA-C [address] [place] [address] Assigned Surgical Provider 03/11/21 Carine Smallwood MD [address] [place] [address] Assigned Surgical Provider 02/25/21 Vee Levy PA-C [address] [place] [address] Assigned Surgical Provider 02/11/21 Carine Smallwood MD [address] [place] [address] Assigned Surgical Provider 03/25/2104/14/21 Vee Levy PA-C [address] [place] [address] Assigned Surgical Provider 04/15/2104/21/21 Carine Smallwood MD [address] [place] [address] Assigned Surgical Provider 05/27/2112/14/21 Vee Levy PA-C [address] [place] [address] Assigned Surgical Provider 05/20/2104/04 Carine Smallwood MD [address] [place] [address] Assigned Surgical Provider 04/22/2105/19/21 Vee Levy PA-C [address] [place] [address] Assigned Surgical Provider 12/15/21 documented as of this encounter
--- OUTSIDE RECORDS SUMMARY | 2023-12-01 08:27 | XMS_ITS | Referral Summary ---
Author Organization [facility] Address [address] [place] [address] Care Team Providers Care Astrobiologist Name Role Phone Lyndsey Guzman MD Primary Care Provider [phone] Allergies Active Allergy Reactions Criticality Noted Date [...] Overview: Added automatically from request for surgery [id number] Tear of medial cartilage or meniscus of [...] A.M.A. LIPID PANEL Routine 04/25/2005 4:53 PM SLEEVE SEPARATOR Herpes Simplex Nos Acne Nec HCL PAP THIN LAYER SCREEN Routine 04/25/2005 12:00 AM SLEEVE SEPARATOR Routine Medical Exam C MAMMOGRAM, SCREENING Routine 05/02/2004 Symptoms In Breast Nec Dysuria from Last 3 Months or Most Recently Relevant to Health Maintenance Results * (ABNORMAL) Glucose by meter (10/10/2020 5:29 AM CDT) Glucose 128(H) 70 - 99 mg/dL 10/10/2020 5:35 AM CDT POINT OF CARE TEST, GLUCOSE 10/10/2020 5:29 AM CDT 10/10/2020 5:35 AM CDT Carine Smallwood MD LAB - [facility] POCT POINT OF CARE TEST, GLUCOSE [...] correlate. ALTHEA NINO MD Pauline Ryan MD [facility] ORDERABLES * COLONOSCOPY (08/30/2005) Devin Lopez DO PROCEDURES Performing Organization Address [facility] de Phone Number [facility] [place] [address] * (ABNORMAL) A.M.A. LIPID PANEL (04/25/2005 4:53 PM SLEEVE SEPARATOR) Cholesterol 180 0 - 200 mg/dL [facility] Comment: LDL Cholesterol is the primary guide to therapy: LDL-cholesterol goal in high risk patients is <100 mg/dL and in very high risk patients is <70 mg/dL. The NCEP recommends further evaluation of: patients with cholesterol <200 mg/dL if additional risk factors are present, cholesterol >240 mg/dL, triglycerides >150 mg/dL, or HDL <40 mg/dL. Triglycerides 190(H) 0 - 150 mg/dL [facility] HDL Cholesterol 35(L) 50 - 110 mg/dL [facility] LDL Cholesterol Calculated 107 0 - 129 mg/dL [facility] [facility] Comment: LDL Cholesterol is the primary guide to therapy: LDL-cholesterol goal in high risk patients is <100 mg/dL and in very high risk patients is <70 mg/dL. VLDL-Cholesterol 38(H) 0 - 30 mg/dL [facility] Cholesterol/HDL Ratio 5.1(H) 0.0 - 5.0 [facility] 04/25/2005 4:53 PM SLEEVE SEPARATOR 04/25/2005 5:03 PM SLEEVE SEPARATOR Devin Lopez DO LABORATORY Performing Organization Address [facility] Co de Phone Number [facility] [place] [address] * A THIN LAYER PAP SCREEN (04/25/2005 12:00 AM SLEEVE SEPARATOR) PAP JITENDRA Bolden Report Patient Name: RUBY CHRISTIAN MR#: [id number] Specimen #: [id number] Collected: 04/25/2005 Received: 04/28/2005 Reported: 05/01/2005 10:12 Ordering Phy(s): DEVIN LOPEZ SPECIMEN/STAIN PROCESS: Pap thin layer prep screening ([facility]) ? Pap-Cyto x 1, Reflex HPV x 1 SOURCE: Cervical, endocervical Pap thin layer prep screening ([facility]) SPECIMEN ADEQUACY: Satisfactory for evaluation. -Transitional zone component present. CYTOLOGIC INTERPRETATION: Negative for Intraepithelial Lesion or Malignancy Electronically signed out by: ALANNA Booth (ASCP) Processed at [facility], screened at [facility] Laboratory CLINICAL HISTORY: LMP: no lmp recorded Previous normal pap: 05-02-04, TESTING LAB LOCATION: [address] [address] COLLECTION SITE: Client: ??[facility] Location: [facility] 04/25/2005 04/28/2005 8:0 1 AM SLEEVE SEPARATOR Devin Lopez DO LABORATORY COPATH * MAMMOGRAM, SCREENING (05/02/2004) MAMMOGRAM CAT 2 [facility] LAB/RAD Anatomical Region Laterality Modality Other [...] Advance Directives For more information, please contact: [phone] * Full Code (Latest Code Status on File) Date Activated Date Inactivated Comments 10/09/2020 2:28 PM 10/10/2020 1:54 PM All basic an d advanced life-sustaining interventions are performed as appropriate Post op Question Answer Comments Code status determined by: Other (please documen t) Care Teams Astrobiologist Relationship Specialty Start Date End Date Lyndsey Guzman MD [facility] [address] [place] [address] PCP - General Family Medicine 08/28/20
--- OUTSIDE RECORDS SUMMARY | 2023-12-01 08:27 | XMS_ITS | Continuity of Care Document ---
Author Organization [facility] theresa Address [address] [place] [address] [place] [address] Phone Care Team Providers Care Stoner Hand Name Role Phone Will Celestino MARTINEZ Unavailable [...] tablet - Active Flonase 50 mcg/actuation Nasal [place] - Active dicyclomine 10 mg capsule - Active Procedures Procedure Date OFFICE CONSULTATION Advance Directives Directive Yes / No Effective Date File Name No Information Encounters Encounter Description Practice Location Reason(s) For Visit Diagnoses Date Provider Providers Copied on Encounter [facility], [address] [place] [address], [id number] , [place] tel:[phone] [facility] [place] No Information 2 Will Celestino. [address] [facility] [place], [place], [id number] , [place]. tel:[phone] OFFICE CONSULTATION [facility], [address] [facility] [place], [id number] , [place] tel:[phone] [facility] Molly widespread pain (chief complaint) LumbagoCervicalgiaP ain in joint involving ankle and footMyalgia and myositis, unspecifiedPain in joint involving shoulder regionPain in joint involving pelvic region and thighDepressionHype rtension, Benign 3 Devin Dunnw. [address] Jonathon Pickett [place], [id number] , . tel:[phone] Referring Provider: Celestino Garcia, [address] [place], [address] . tel:[phone] Family History Family Member Type Diagnosis Age [...]
--- OUTSIDE RECORDS SUMMARY | 2023-12-01 08:27 | XMS_ITS | Encounter Summary ---
Author Organization [facility] Address [address] [place] [address] Care Team Providers Care Building Inspector Name Role Phone Devin Britt DO Primary Care Provider [phone] Damian Dowell MD Unavailable [phone] Collin Anthony MD Unavailable Unavailable Frw, None Primary Care Provider Unavailabl e Allison Smyth Primary Care Provider [phone] Lyndsey Guzman MD Primary Care Provider + [phone] Carine Smallwood MD Unavailable [phone] Vee Levy-C Unavailable [phone] Carine Smallwood MD Unavailable [phone] Vee Levy-C Unavailable [phone] Carine Smallwood MD Unavailable [phone] Vee Levy-C Unavailable [phone] Carine Smallwood MD Unavailable [phone] Vee Levy-C Unavailable [phone] Carine Smallwood MD Unavailable [phone] Vee Levy-C Unavailable [phone] Carine Smallwood MD Unavailable Vee Levy PA-C Unavailable Carine Smallwood MD Unavailable [phone] Vee Levy PA-C Unavailable [phone] Reason for Visit * Reason Onset Date Comments Refill Request 03/07/2006 zaida fine Encounter Details Date Type Department Care Team (Late st Contact Info) Description 03/07/2006 Refill [facility] [address] [place] [address] Collin Anthony MD Refill Request (zaida [...] will FAX it directly to the pharmacy. MOUNTER documented in this encounter Plan of Treatment Not on file documented as of this encounter Visit Diagnoses Not on filedocumented in this encounter Care Teams Building Inspector Relationship Specialty Start Date End Date Devin Britt DO [address] [place] [address] PCP - General 04/18/05 09/04/11 Damian Dowell MD [address] [place] [address] PCP - Surgery 05/08/04 03/14/14 Collin Anthony MD [address] [place] [address] PCP - Orthopaedics 01/23/06 02/19/18 Frw, None PCP - General Family Practice 09/05/11 09/18/13 Allison Smyth PCP - General Family Practice 09/19/13 08/27/20 Lyndsey Guzman MD [facility] [address] [place] [address] PCP - General Family Medicine 08/28/20 Carine Smallwood MD [address] [place] [address] Assigned Surgical Provider 09/17/20 Vee Levy PA-C [address] [place] [address] Assigned Surgical Provider 10/29/20 Carine Smallwood MD [address] [place] [address] Assigned Surgical Provider 11/05/20 Vee Levy PA-C [address] [place] [address] Assigned Surgical Provider 12/03/20 Carine Smallwood MD [address] [place] [address] Assigned Surgical Provider 12/31/20 Vee Levy PA-C [address] [place] [address] Assigned Surgical Provider 03/11/21 Carine Smallwood MD [address] [place] [address] Assigned Surgical Provider 02/25/21 Vee Levy PA-C [address] [place] [address] Assigned Surgical Provider 02/11/21 Carine Smallwood MD [address] [place] [address] Assigned Surgical Provider 03/25/2104/14/21 Vee Levy PA-C [address] [place] [address] Assigned Surgical Provider 04/15/2104/21/21 Carine Smallwood MD [address] [place] [address] Assigned Surgical Provider 05/27/2112/14/21 Vee Levy PA-C [address] [place] [address] Assigned Surgical Provider 05/20/2104/04 Carine Smallwood MD [address] [place] [address] Assigned Surgical Provider 04/22/2105/19/21 Vee Levy PA-C [address] [address] Assigned Surgical Provider 12/15/21 documented as of this encounter
--- OUTSIDE RECORDS SUMMARY | 2023-12-01 08:27 | XMS_ITS | Encounter Summary ---
Author Organization [facility] Address [address] [place] [address] Care Team Providers Care Operation Supervisor Name Role Phone Devin Britt DO Primary Care Provider [phone] Damian Dowell MD Unavailable [phone] Collin Singh MD Unavailable Unavailable Frw, None Primary Care Provider Unavailabl e Allison Smyth Primary Care Provider [phone] Lyndsey Guzman MD Primary Care Provider + [phone] Carine Smallwood MD Unavailable [phone] Vee Levy-C Unavailable [phone] Carine Smallwood MD Unavailable [phone] Vee Levy-C Unavailable [phone] Carine Smallwood MD Unavailable [phone] Vee Levy-C Unavailable [phone] Carine Smallwood MD Unavailable [phone] Vee Levy-C Unavailable [phone] Carine Smallwood MD Unavailable [phone] Vee Levy-C Unavailable [phone] Carine Smallwood MD Unavailable eVe Levy PA-C Unavailable Carine Smallwood MD Unavailable [phone] Vee Levy PA-C Unavailable Reason for Visit * Reason Onset Date Comments Refill Request 05/30/2006 Francisco/zaida Encounter Details Date Type Department Care Team (Late st Contact Info) Description 05/30/2006 Refill [facility] [place] [facility] [address] [place] [address] Collin Singh MD Refill Request [...] as [facility] and hasn't been able to make other appts and currently has no appt made. CLERK documented in this encounter Plan of Treatment Not on file documented as of this encounter Visit Diagnoses Not on filedocumented in this encounter Care Teams Operation Supervisor Relationship Specialty Start Date End Date Devin Britt DO [address] [place] [address] PCP - General 04/18/05 09/04/11 Damian Dowell MD [address] [place] [address] PCP - Surgery 05/08/04 03/14/14 Collin Singh MD [address] [place] [address] PCP - Orthopaedics 01/23/06 02/19/18 Frw, None PCP - General Family Practice 09/05/11 09/18/13 Libra Sabihalatisha PCP - General Family Practice 09/19/13 08/27/20 Lyndsey Guzman MD [facility] [address] [address] PCP - General Family Medicine 08/28/20 Carine Smallwood MD [address] [place] [address] Assigned Surgical Provider 09/17/20 Vee Levy PA-C [address] [place] [address] Assigned Surgical Provider 10/29/20 Carine Smallwood MD [address] [place] [address] Assigned Surgical Provider 11/05/20 Vee Levy PA-C [address] [place] [address] Assigned Surgical Provider 12/03/20 Carine Smallwood MD [address] [place] [address] Assigned Surgical Provider 12/31/20 Vee Levy PA-C [address] [place] [address] Assigned Surgical Provider 03/11/21 Carine Smallwood MD [address] [place] [address] Assigned Surgical Provider 02/25/21 Vee Levy PA-C [address] [place] [address] Assigned Surgical Provider 02/11/21 Carine Smallwood MD [address] [place] [address] Assigned Surgical Provider 03/25/2104/14/21 Vee Levy PA-C [address] [place] [address] Assigned Surgical Provider 04/15/2104/21/21 Carine Smallwood MD [address] [place] [address] Assigned Surgical Provider 05/27/2112/14/21 Vee Levy PA-C [address] [place] [address] Assigned Surgical Provider 05/20/2104/04 Carine Smallwood MD [address] [facility] [address] [place] [address] Assigned Surgical Provider 04/22/2105/19/21 Vee Levy PA-C [address] [facility] [address] [place], [place] [address] Assigned Surgical Provider 12/15/21 documented as of this encounter
--- OUTSIDE RECORDS SUMMARY | 2023-12-01 08:27 | XMS_ITS | Continuity of Care Document ---
Author Organization [facility] Address [address] [place] [address] Phone Care Team Providers Care Hand Bunch Maker Name Role Phone Johnna CARREON, PhD, Milo Unavailable Unavai lable Procedures Procedure Date Office/Outpatient Visit,[facility] 2023 Advance Directives Directive Yes / No Effective Date File Name No Information Encounters Encounter Description Practice Location Reason(s) For Visit Diagnoses Date Provider Providers Copied on Encounter [facility], [address], [place], [place], [id number], [place] tel:[phone] No Information Johnna Pedraza. [facility], [address], [place], [address], [place]. tel:[phone] Office/Outpat ient Visit,[facility], [address], [place], [place], [id number], [place] tel:[phone] [facility] Low back pain, unspecified Johnna Pedraza. [facility], [address], [place], [address], [place]. tel:[phone] Referring Provider: Preston Li, [facility] [address] [facility] [address], [place], [address]. tel:[phone] Family History Family Member Type Diagnosis Age At Onset No Information Payers Payer name Insurance type Covered constitution party ID Authorjanice bonner(s) [place] [employer] [facility] [id number] Formerly [facility] Michael 2021 [id number] Social History Type Description Quantity Date Captured [...]
--- OUTSIDE RECORDS SUMMARY | 2023-12-01 08:27 | XMS_ITS | Clinical Summary ---
Author Organization [facility] Address [place], [place] [address] Care Team Providers Care Music Copyist Name Role Phone Anthony Christy Yap PT Primary Care Provider [phone] Allergies No known active allergies Medications Medication [...] Comments Blood Pressure 117/60 05/24/2015 2:50 PM MAIL MANAGER Pulse 85 05/24/2015 2:50 PM MAIL MANAGER Temperature 36.3 ??C (97.3 ??F) 05/24/2015 1:41 PM CS T Respiratory Rate 16 05/24/2015 2:50 PM MAIL MANAGER Oxygen Saturation 96% 05/24/2015 2:50 PM MAIL MANAGER Inhaled Oxygen Concentration - - Weight 86.5 kg (190 lb 11.2 oz) 016 10:28 AM MAIL MANAGER Height 167.6 cm (5' 5.98) 05/23/2015 8:44 AM CS T Body Mass Index 30.79 05/23/2015 8:44 AM MAIL MANAGER Plan of Treatment Health Maintenance Due Date [...] this topic Medical Devices Implanted Type Area Engineering Operations Leader Device Identifier Shelf Expiration Date Model / Serial / Lot Ancr Sut 2.4x8.5mm Suturetak Micro W/2-0 Fiberwire [employer] Bio - [id number] Implanted:Qty: 1 on 05/24/2015 by Jon Mcpherson MD at [facility] Left: Elbow [employer] 01/11/2017 [id number] CNF # / / [id number] Procedures Procedure Name Priority Date/Time Associated Diagnosis Comments RIVER DRIVER THIN PREP PAP SCREEN IMAGED Routine 05/31/2020 2:30 PM MAIL MANAGER LIPID PANEL W REFLEX MEASURED LDL Routine 05/22/2010 10:05 AM MAIL MANAGER Screening for lipoid disorders from Last 3 Months or Most Recently Relevant to Health Maintenance Results * RIVER DRIVER THIN PREP PAP SCREEN IMAGED (05/31/2020 2:30 PM MAIL MANAGER) Case Report Gynecologic Cytology Report ? Case: [id number] ? Authorizing Provider: ??Unknown, Doctor ?Collected: ? 05/31/2020 1430 ? Ordering Location: ? [facility] ?Received: ?06/02/2020 0811 ? First Screen: ?Nick, Denzel ? Specimen: ?RIVER DRIVER ThinPrep Vial Screening, Cervical/Vaginal ? 06/10/2020 1:27 PM [facility] INTERPRETATION/ RESULT NEGATIVE FOR INTRAEPITHELIAL LESION OR MALIGNANCY (NIL) (none) 06/10/2020 1:27 PM [facility] IMEN ADEQUACY Satisfactory for evaluation Endocervical component present 06/10/2020 1:27 PM [facility] HPV REQUEST HPV and PAP 06/10/2020 1:27 PM [facility] Menstrual Status 06/10/2020 1:27 PM [facility] Comment:Menopause Additional Information 06/10/2020 1:27 PM [facility] Comment: Interpreted at [facility] Apptive [facility], Central Laboratory - [address], [place] [address] Automated Review Successful 06/10/2020 1:27 PM [facility] Comment:Specimen processed s uccessfully by automated convention worker device, PsychSignalPrep Imaging System, [employer] ANCILLARY TESTING RIVER DRIVER HPV Ordered, Please see separate report 06/10/2020 1:27 PM MAIL MANAGER [facility]-C ENTRAL LABORATORY Note The pap test [...] pre-malignant and malignant lesions. 06/10/2020 1:27 PM MAIL MANAGER [facility] ENTRAL LABORATORY Other (Cervical/Vagina l) 05/31/2020 2:30 PM MAIL MANAGER 06/02/2020 8:11 AM MAIL MANAGER Doctor Unknown PATHOLOGY/CYTOLOGY [facility]-CENTRAL LABORATORY [address] [place] [address], [place] * (ABNORMAL) LIPID PANEL W REFLEX MEASURED LDL (05/22/2010 10:05 AM MAIL MANAGER) CHOLESTEROL,TOTAL 110 110 - 199 mg/dL [facility] TRIGLYCERIDES 38(L) 40 - 149 mg/dL [facility] HDL CHOLESTEROL 43 >40 mg/dL [facility] CHOL/HDL RATIO 2.56 <4.51 [facility] LDL CHOLESTEROL 59 <131 mg/dL [facility] PATIENT STATUS Fasting [facility] Blood specimen (specimen) BLOOD SPECIMEN / Unknown 05/22/2010 10:05 AM MAIL MANAGER 05/22/2010 9:33 AM MAIL MANAGER Norberto Nicholson MD CHEMISTRY [facility] INTERNAL ZIP [id number] [address] from Last 3 Months or Most Recently Relevant to Health Maintenance Advance Directives * Full Code (Latest Code Status on File) Date Activated Date Inactivated Comments 05/24/2015 1:33 PM 05/24/2015 5:10 PM * Full Code Date Activated Date Inactivated Comments 05/24/2015 10:17 AM 05/24/2015 1:33 PM Care Teams Music Copyist Relationship Specialty Start Date End Date Christy Cruz PT [address] [facility] [place] [address] PCP - General Physical Therapist 05/22/15
--- OUTSIDE RECORDS SUMMARY | 2023-12-01 08:27 | XMS_ITS | Clinical Summary ---
Author Organization [facility] Address [address] [place] [address] Care Team Providers Care Hat Body Sorter Name Role Phone Lyndsey Guzman MD Primary Care Provider [phone] Allergies Active Allergy Reactions Criticality Noted Date [...] Overview: Added automatically from request for surgery [id number] Tear of medial cartilage or meniscus of [...] A.M.A. LIPID PANEL Routine 04/25/2005 4:53 PM CORPORATE SAFETY MANAGER Herpes Simplex Nos Acne Nec HCL PAP THIN LAYER SCREEN Routine 04/25/2005 12:00 AM CORPORATE SAFETY MANAGER Routine Medical Exam C MAMMOGRAM, SCREENING Routine 05/02/2004 Symptoms In Breast Nec Dysuria from Last 3 Months or Most Recently Relevant to Health Maintenance Results * (ABNORMAL) Glucose by meter (10/10/2020 5:29 AM CDT) Glucose 128(H) 70 - 99 mg/dL 10/10/2020 5:35 AM CDT POINT OF CARE TEST, GLUCOSE 10/10/2020 5:29 AM CDT 10/10/2020 5:35 AM CDT Carine Smallwood MD [facility] POCT POINT OF CARE TEST, GLUCOSE [...] Devin Lopez DO PROCEDURES Performing Organization Address City/State/[facility] de Phone Number [facility] [place] [address] * (ABNORMAL) A.M.A. LIPID PANEL (04/25/2005 4:53 PM CORPORATE SAFETY MANAGER) Cholesterol 180 0 - 200 mg/dL [facility] Comment: LDL Cholesterol is the primary guide to therapy: LDL-cholesterol goal in high risk patients is <100 mg/dL and in very high risk patients is <70 mg/dL. The NCEP recommends further evaluation of: patients with cholesterol <200 mg/dL if additional risk factors are present, cholesterol >240 mg/dL, triglycerides >150 mg/dL, or HDL <40 mg/dL. Triglycerides 190(H) 0 - 150 mg/dL [facility] HDL Cholesterol 35(L) 50 - 110 mg/dL [facility] LDL Cholesterol Calculated 107 0 - 129 mg/dL [facility] Comment: LDL Cholesterol is the primary guide to therapy: LDL-cholesterol goal in high risk patients is <100 mg/dL and in very high risk patients is <70 mg/dL. VLDL-Cholesterol 38(H) 0 - 30 mg/dL [facility] Cholesterol/HDL Ratio 5.1(H) 0.0 - 5.0 [facility] 04/25/2005 4:53 PM CORPORATE SAFETY MANAGER 04/25/2005 5:03 PM CORPORATE SAFETY MANAGER Devin Lopez DO LABORATORY Performing Organization Address [facility] de Phone Number [facility] [address] * A THIN LAYER PAP SCREEN (04/25/2005 12:00 AM CORPORATE SAFETY MANAGER) PAP JITENDRA Bolden Report Patient Name: RUBY CHRISTIAN MR#: [id number] Specimen #: [id number] Collected: 04/25/2005 Received: 04/28/2005 Reported: 05/01/2005 10:12 Ordering Phy(s): DEVIN LOPEZ SPECIMEN/STAIN PROCESS: Pap thin layer prep screening (SurePath) ? Pap-Cyto x 1, Reflex HPV x 1 SOURCE: Cervical, endocervical Pap thin layer prep screening (SurePath) SPECIMEN ADEQUACY: Satisfactory for evaluation. -Transitional zone component present. CYTOLOGIC INTERPRETATION: Negative for Intraepithelial Lesion or Malignancy Electronically signed out by: ALANNA Booth (ASCP) Processed at [facility], screened at [facility] CLINICAL HISTORY: LMP: no lmp recorded Previous normal pap: 05-02-04, TESTING LAB LOCATION: [address] [address] COLLECTION SITE: Client: ??[facility] Location: [facility]) [facility] [place] 04/25/2005 04/28/2005 8:0 1 AM CORPORATE SAFETY MANAGER Devin Lopez DO LABORATORY COPATH * MAMMOGRAM, SCREENING (05/02/2004) MAMMOGRAM CAT 2 [facility] Anatomical Region Laterality Modality Other Narrative [...] Advance Directives For more information, please contact: [phone] * Full Code (Latest Code Status on File) Date Activated Date Inactivated Comments 10/09/2020 2:28 PM 10/10/2020 1:54 PM All basic an d advanced life-sustaining interventions are performed as appropriate Post op Question Answer Comments Code status determined by: Other (please documen t) Care Teams Hat Body Sorter Relationship Specialty Start Date End Date Lyndsey Guzman MD [facility] [address], [place] [address] PCP - General Family Medicine 08/28/20
--- OUTSIDE RECORDS SUMMARY | 2023-12-01 08:27 | XMS_ITS | Encounter Summary ---
Author Organization [facility] Address [address] [place] [address] Care Team Providers Care Cad Engineer Name Role Phone Devin Britt DO Primary Care Provider [phone] Damian Dowell MD Unavailable [phone] Collin Singh MD Unavailable Unavailable Frw, None Primary Care Provider Unavailabl e Allison Smyth Primary Care Provider [phone] Lyndsey Guzman MD Primary Care Provider + [phone] Carine Smallwood MD Unavailable [phone] Vee Levy-C Unavailable [phone] Carine Smallwood MD Unavailable [phone] Vee Levy-C Unavailable [phone] Craine Smallwood MD Unavailable [phone] Vee Levy-C Unavailable [phone] Carine Smallwood MD Unavailable [phone] Vee Levy-C Unavailable [phone] Carine Smallwood MD Unavailable [phone] Vee Levy-C Unavailable [phone] Carine Smallwood MD Unavailable [phone] Vee Levy PA-C Unavailable [phone] Carine Smallwood MD Unavailable [phone] Vee Levy PA-C Unavailable Encounter Details Date Type Department Care Team (Late st Contact Info) Description 05/06/2005 [facility] [place] Inpatient Dept [address] [place] [address] Frw, Inpatient Provider Social History [...] without complications. Bernardino Key M.D. Fadia cc: ER HELPER documented in this encounter Plan of Treatment Not on file documented as of this encounter Visit Diagnoses Not on filedocumented in this encounter Care Teams Cad Engineer Relationship Specialty Start Date End Date Devin Britt DO [address] [place] [address] PCP - General 04/18/05 09/04/11 Damian Dowell MD [address] [place] [address] PCP - Surgery 05/08/04 03/14/14 Collin Singh MD [address] [place] [address] PCP - Orthopaedics 01/23/06 02/19/18 Frw, None PCP - General Family Practice 09/05/11 09/18/13 Allison Smyth PCP - General Family Practice 09/19/13 08/27/20 Lyndsey Guzman MD [facility] [address] [place] [address] PCP - General Family Medicine 08/28/20 Carine Smallwood MD [address] [place] [address] Assigned Surgical Provider 09/17/20 Vee Levy PA-C [address] [place] [address] 935967 Assigned Surgical Provider 10/29/20 Carine Smallwood MD [address] [place] [address]1517 Assigned Surgical Provider 11/05/20 Vee Levy PA-C [address] [place] [address] Assigned Surgical Provider 12/03/20 Carine Smallwood MD [address] [place] [address] Assigned Surgical Provider 12/31/20 Vee Levy PA-C [address] [place] [address] Assigned Surgical Provider 03/11/21 Carine Smallwood MD [address] [place] [address] Assigned Surgical Provider 02/25/21 Vee Levy PA-C [address] [place] [address] Assigned Surgical Provider 02/11/21 Carine Smallwood MD [address] [place] [address] Assigned Surgical Provider 03/25/2104/14/21 Vee Levy PA-C [address] [place] [address] Assigned Surgical Provider 04/15/2104/21/21 Carine Smallwood MD [address] [place] [address] Assigned Surgical Provider 05/27/2112/14/21 Vee Levy PA-C [address] [place] [address] Assigned Surgical Provider 05/20/2104/04 Carine Smallwood MD [address] [place] [address] Assigned Surgical Provider 04/22/2105/19/21 Vee Levy PA-C [address] [place] [address] Assigned Surgical Provider 12/15/21 documented as of this encounter
[2023-12-01 08:29] LABS: Creatinine, Point-of-Care* 0.9 mg/dl (0.6-1.3)
[2023-12-01 08:35] LABS: Basophils Percent Auto 0.5 % (0.0-3.0); Hematocrit 37.7 % (33.0-51.0); Hemoglobin* 12.3 gm/dL (12.0-16.0); Immature Granulocytes Pct Auto 0.4 %; Lymphocytes Percent Auto 28.6 % (20-44); Mean Corpuscular HGB Conc 33 gm/dL (32-36); Mean Corpuscular Hemoglobin 30 pg (26-34); Mean Corpuscular Volume 92 fL (80-100); Monocytes Percent Auto 10.7 % (0.0-11.0); Neutrophils Percent Auto 56.8 % (42.0-72.0); Platelet Count* 465 K/uL (140-440); RDW Coefficient of Variation % 12.1 % (11.5-15.5); Red Blood Count 4.09 m/uL (4.00-5.20); White Blood Count* 12.82 K/uL (4.50-11.00)
[2023-12-01] MEDS: METOCLOPRAMIDE HCL 5 MG/ML INJ 10 MG IVP (08:35)
[2023-12-01] MEDS: diphenhydrAMINE 50 MG/ML inj 25 MG IVP (08:35)
[2023-12-01 08:44] LABS: Slide Review Reflex No
[2023-12-01 08:47] LABS: Chloride* 101 mmol/L (96-114); Sodium* 136 mmol/L (135-149)
[2023-12-01 08:48] LABS: Potassium* 3.4 mmol/L (3.6-5.1)
[2023-12-01 08:50] LABS: Creatinine* 0.9 mg/dL (0.5-1.5); Estimated Glomerular Filt Rate 76 ml/min
[2023-12-01 08:51] LABS: Anion Gap 9 mEq/L (7-15); Blood Urea Nitrogen* 9 mg/dL (7-30); Calcium* 9.5 mg/dL (8.4-10.6); Carbon Dioxide* 26 mmol/L (20-32); Glucose* 131 mg/dL (60-115)
[2023-12-01 09:14] LABS: PCR FLU A Negative PCR FLU A (Negative); PCR FLU B Negative PCR FLU B (Negative); PCR RSV Negative PCR RSV (Negative); SARS PCR* Negative SARS-CoV-2 (Negative)
[2023-12-01] MEDS: MECLIZINE HCL 25 MG TABLET PO (09:37)
--- NOTE | 2023-12-01 10:21 | CRLHL7_ITS ---
For Patients: As a result of the Century Cures Act, medical imaging exams and procedure reports are released immediately into your electronic medical record. You may view this report before your referring provider. If you have questions, please contact your health care provider. Indication: Dizziness, left eye visual issues. Technique: Noncontrast sagittal T1, axial FLAIR, T2, diffusion weighted sequences are provided. Comparison is made to the earlier same day CT brain without contrast. Findings: The examination is limited by moderate multisequence motion artifact and marked susceptibility artifact on the diffusion and FLAIR sequences, with nearly completely obscures the posterior fossa. Within these limitations: There is a small focus of diffusion weighted hyperintensity along the left occipital cortex (series 5, image 38). There is no definite correlate on the ADC map, but there is likely associated FLAIR hyperintensity (series 7, image 22). Ventricles and sulci are normal in size. No midline shift. There are no evident suspicious intra or extra-axial fluid collections. No obvious region of restricted diffusion. Mild scattered foci T2/FLAIR hyperintensity in the subcortical and periventricular white matter with a bifrontal predominance are nonspecific, but compatible with mild chronic small-vessel ischemic changes. Expected flow voids in the cavernous carotids and basilar artery. Impression: 1. Markedly limited examination due to susceptibility and motion artifacts however. 2. There is a questionable focus of diffusion weighted hyperintensity along the left occipital cortex, which may reflect a recent infarct, particularly given the reported left eye issues though could be artifactual. These findings were discussed with Dr. Fortune at 12:12 PM. Dictated by Alexsander Duncan MD @ 12/01/2023 12:15:22 PM (Electronically Signed)
[2023-12-01] MEDS: diazePAM 5 MG TABLET 2.5 MG PO (10:47)
[2023-12-01] MEDS: ASPIRIN 81 MG TAB.CHEW 324 MG PO (13:46)
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
[2023-12-01] MEDS: levoFLOXacin 750 MG TABLET PO (18:33)
[2023-12-01] MEDS: POTASSIUM CHLORIDE 10 MEQ/100 ML PIGGYBACK 100 MEQ IVPB ×2 (18:37→20:21)
[2023-12-01] MEDS: ACETAMINOPHEN 325 MG TABLET 650 MG PO (18:51)
--- NOTE | 2023-12-01 19:52 | PC.NURSE ---
Nursing Care Hours: [id number] Pt this shift arrived from ED on W/C, assisted to stand and walk to bed. Apparent unstable balance leaning toward R side. Intermittent nausea with position changes and trying to focus. No emesis this shift. Reported relief with symptoms when laying on R side or when closing the left eye. VSS. Observed under bilat breasts from implant repair 11/13/23. Incision [place], redness at the crease otherwise no SS of infection or area of concern. Reports slight tenderness. Back pain rated 4/10. Declined scheduled Ibuprofen and reports her doctor told her not to take it anymore. Acetaminophen given instead. IV potassium started at regular rate with Y-site dilution with NS. C/o pain at IV site. Titrate K down and NS up until K at 60ml/hr and NS at 50ml/hr. Warm blanket provided. No c/o since last titration. Tolerating regular diet. Started off slow and increased per pt request.
[2023-12-02] VITALS (11 sets, daily range): BP systolic 98–126; BP diastolic 62–74; PULSE 72–106; RESP 14–16; TEMP 36.7–37.3; O2SAT 95–98
[2023-12-02 04:17] LABS: Amphetamine Screen Urine POSITIVE (Negative); Barbiturate Screen Urine Negative (Negative); Benzodiazepines Screen Urine POSITIVE (Negative); Cannabinoid Screen Urine POSITIVE (Negative); Cocaine Screen Urine Negative (Negative); Methadone Screen Urine Negative (Negative); Methamphetamines Screen Urine POSITIVE (Negative); Opiate Screen Urine POSITIVE (Negative); Oxycodone Screen Urine Negative (Negative); Phencyclidine Screen Urine Negative (Negative); Tricyclic Antidepressant Urine Negative (Negative)
[2023-12-02 06:30] LABS: Basophils Absolute Auto 0.04 K/uL (0.00-0.30); Basophils Percent Auto 0.4 % (0.0-3.0); Eosinophils Absolute Auto 0.46 K/uL (0.00-0.50); Eosinophils Percent Auto 4.2 % (0.0-7.0); Hematocrit 33.8 % (33.0-51.0); Immature Granulocytes Abs Auto 0.04 K/uL (0.00-0.30); Immature Granulocytes Pct Auto 0.4 %; Lymphocytes Absolute Auto 2.69 K/uL (0.90-2.90); Lymphocytes Percent Auto 24.6 % (20-44); Mean Corpuscular HGB Conc 33 gm/dL (32-36); Mean Corpuscular Hemoglobin 30 pg (26-34); Mean Corpuscular Volume 93 fL (80-100); Neutrophils Absolute Auto 6.61 K/uL (1.7-7.0); Neutrophils Percent Auto 60.4 % (42.0-72.0); Platelet Count* 382 K/uL (140-440); RDW Coefficient of Variation % 12.3 % (11.5-15.5); Red Blood Count 3.63 m/uL (4.00-5.20); Slide Review Reflex No; White Blood Count* 10.93 K/uL (4.50-11.00)
[2023-12-02 06:45] LABS: Chloride* 104 mmol/L (96-114); Potassium* 4.1 mmol/L (3.6-5.1); Sodium* 137 mmol/L (135-149)
[2023-12-02 06:48] LABS: Anion Gap 6 mEq/L (7-15); Blood Urea Nitrogen* 10 mg/dL (7-30); Carbon Dioxide* 27 mmol/L (20-32); Creatinine* 0.8 mg/dL (0.5-1.5); Est. Creatinine Clearance* 75.26; Estimated Glomerular Filt Rate 88 ml/min; Glucose* 99 mg/dL (60-115)
[2023-12-02 06:49] LABS: Calcium* 8.6 mg/dL (8.4-10.6)
[2023-12-02] MEDS: OMEPRAZOLE 20 MG CAPSULE DR PO (07:00)
--- NOTE | 2023-12-02 07:00 | CRLHL7_ITS ---
For Patients: As a result of the Cures Act, medical imaging exams and procedure reports are released immediately into your electronic medical record. You may view this report before your referring provider. If you have questions, please contact your health care provider. Indication: Vertigo, vomiting, right leg paresthesias. Technique: Multisequence multiplanar MRI of the brain without the use of intravenous contrast. Comparison: MR brain dated 12/01/2023. Findings: Susceptibility artifact again significantly limits evaluation on multiple sequences. Within this limitation, a small focus of diffusion restriction is again noted within the left occipital lobe with associated T2/FLAIR hyperintensity. Scattered foci of T2 prolongation are noted within the supratentorial white matter elsewhere. The ventricles are normal in size. Bone marrow signal intensity of the calvarium is within normal limits. Impression: Severely limited exam due to susceptibility artifact on multiple sequences. Within this limitation: 1. Redemonstrated small focus of diffusion restriction and FLAIR hyperintensity in the left occipital lobe most consistent with subacute infarct. 2. Similar scattered foci of T2 prolongation within the supratentorial white matter elsewhere, nonspecific, but commonly seen in the setting of chronic migraine headaches or mild chronic small-vessel ischemic changes. Dictated by Celestino Emerson MD @ 12/02/2023 12:04:25 PM (Electronically Signed)
--- NOTE | 2023-12-02 07:04 | PC.NURSE ---
END OF SHIFT NOTE: A&Ox4. DENIES CP, SOB, N/V. AMBULATES WITH A1/W; UNSTEADY GAIT ?LEANS/TIPS TO RIGHT SIDE. VSS ON RA; AFEBRILE. C/O LOWER BACK PAIN 5/10 AND SINUS PRESSURE PAIN 7/10 WITH RELIEF FROM TYLENOL. SLURRED SPEECH AND NYSTAGMUS CLEARED THROUGHOUT NIGHT. PT RESTED WELL OVERNIGHT. PREVIOUS INCISIONS BELOW BREASTS HEALING WELL.?BED ALARM ON AND CALL LIGHT WITHIN PT?S REACH.
[2023-12-02] MEDS: SITAGLIPTIN PHOSPHATE 50 MG TABLET PO (08:52)
[2023-12-02] MEDS: ASPIRIN 81 MG TABLET EC PO (08:52)
--- NOTE | 2023-12-02 09:23 | NUTR.NU ---
RDN with nutrition screen related to positive MST score for weight loss recently and poor appetite, and current diet of diabetic. Patient admitted for severe vertigo and possible stroke. Past medical history includes hypertension, diabetes, obesity, and anxiety. Current weight 169 lb 8 oz; height 5ft 6in; BMI 27.4 kg/m2. Per weight records, weight has been stable with no significant changes recently. Current diet is diabetic, meal intakes at 75% and 50% since admit. RDN visited patient whom reported a poor appetite related to dizziness, nausea, and vomiting for 1 day prior to admit. She usually follows a diabetic diet at home and declined diet education related to this. Patient reports as long as she is laying down, has one eye closed, and is touching an object to stay grounded, she does not experience the vertigo symptoms and can tolerate intake. She declined diet education related to diabetes at this time. No nutrition interventions at this time due to adequate oral intakes with tolerance, and stable weight. RDN will continue to monitor and follow-up prn.
[2023-12-02] MEDS: LORazepam 1 MG TABLET 2 MG PO (10:33)
--- NOTE | 2023-12-02 12:56 | P.IMPN_ITS ---
Progress Note: A&P Assessment and plan (1) Cerebellar stroke: Problem details: 11/30/2023 with diplopia, vertigo, ataxia in vomiting as her primary manifestations. Initiate treatment with dual antiplatelet, statin. Optimize diabetes management. Consult tele neurology for stroke. Status: Acute (2) Diabetes: Problem details: 11/04/2022-A1c 6.3%; LDL 112; B12 level normal; completed urine microalbumin- normal; on Januvia 50 mg daily Status: Chronic (3) Hypertension: Problem details: Blood pressure is low normal, hold metoprolol to allow for permissive hypertension Status: Chronic (4) Tobacco dependence syndrome: Problem details: - consider nicotine replacement Status: Chronic (5) Surgical wound infection: Problem details: Had recent breast implants. Apparently surgical incision got infected. Most recently on Levaquin for this. Surgical incisions look clean and dry on this admission. Status: Acute Plan 53-year-old female admitted to the hospital with 1 day history of vertigo, ataxia, vomiting, diplopia starting 1 day prior to admission. MRI today did confirm a left cerebellar stroke. She is modestly better today but still quite impaired. Tele stroke, PT and OT evaluations are still pending. She will be ad mitted for ongoing stroke air. This patient may need acute rehab as well. Optimize stroke risk factors in the meantime. Dual antiplatelets, statin, permissive hypertension, diabetes management. Time Spent With Patient Total time spent: Total time spent today is 60 minutes in evaluation and coordination of care. Subjective Date Seen: 12/02/23 Interval history: Aileen Sloan is a 53 year old female this is a 53-year-old female with history of diabetes mellitus type 2, migraine headaches, GERD, renal insufficiency, hypertension, fibromyalgia, and anxiety who had sudden onset of ataxia, diplopia and vomiting yesterday. Earlier this month she had an elective surgery to replace her breast implants. She developed infection for which she got started on ciprofloxacin and then was switched to levofloxacin. She just got her drains out last Friday. She has been feeling malaise and feverish in the evenings despite being on antibiotics, however it does sound like this got better over the last week or so. The day prior to admission she was at the store when she suddenly had a sensation of flushing, a sharp stabbing feeling on the medial right eye, a starburst pattern in her left eye and her right nose was burning like she ?inhaled some chlorine at a pool.? She felt dizzy and suddenly nauseated. She started vomiting and says that she vomited for quite a while at the store before she was able to leave and get into her car. She is diabetic in noticed her blood glucose was going up despite not being able to eat anything and having vomiting every once in a while. She denies any hematemesis or bright red blood in her emesis. It has been yellow and clear. She also notices that her left eye has trouble focusing especially while looking straight ahead but seems to improve when she is lying on her right side. She said that she typically does not use any recreational drugs, but did have a marijuana gummy last . In the emergency department attempts to evaluate and treat peripheral vertigo were unsuccessful. She had ongoing severe symptoms of vertigo and nausea and diplopia. It was exacerbated by moving her head at all. It did not extinguish 20 she held her head still. December 01: She is feeling a little better today. With forward gaze she still is having persistent diplopia this gets a little worse when she looks to the right. She also has some vertigo which gets worse when she turns her head to the left. When I talk to her she covers her left eye to resolve the diplopia. I did tape her eye shut and she reported that felt better. Brain MRI showed left occipital infarct. Telemetry shows sinus rhythm. Exam Narrative: Exam Narrative: She is alert and appears mildly uncomfortable with her diplopia. She is holding her left hand over her left eye to help the symptoms from this. Extraocular movements are full and I do not see obvious dysconjugate gaze. Pupils are equal round reactive to light. I exacerbate her vertigo with any head movement but turning left is more bothersome then turning to the right. She has no facial asymmetry. Intact sensation to soft touch on both sides of the face. Oropharynx is normal tongue is midline. Neck is supple without mass or adenopathy. Strength in upper and lower extremities is symmetric and full i ncluding shoulder flexion and extension, elbow flexion and extension, wrist flexion extension, tunnel kiln repairer strength, finger extension, hip flexion, knee flexion, knee extension, ankle dorsiflexion and plantar flexion. Reflexes are 1/4. Babinski normal. [id number] is accurate without ataxia. Const: Vital Signs, click to edit/add: Vital Signs - 24 hr 12/01/23 13:00 12/01/23 13:15 12/01/23 13:30 Temperature Pulse Rate 67 66 60 Pulse Rate [Left P ulse Oximeter] Respiratory Rate Blood Pressure [Le ft Arm] Blood Pressure [Ri ght Arm] Pulse Oximetry 99 99 100 Oxygen Delivery Me thod 12/01/23 14:03 12/01/23 14:15 12/01/23 14:43 Temperature Pulse Rate 72 60 Pulse Rate [Left P ulse Oximeter] 67 Respiratory Rate 16 Blood Pressure [Le ft Arm] Blood Pressure [Ri ght Arm] Pulse Oximetry 100 100 98 Oxygen Delivery Me thod Room Air 12/01/23 20:00 12/01/23 20:00 12/01/23 20:00 Temperature 98.4 F Pulse Rate 79 Pulse Rate [Left P ulse Oximeter] 82 82 Respiratory Rate 16 16 Blood Pressure [Le ft Arm] Blood Pressure [Ri ght Arm] 95/57 L Pulse Oximetry 99 Oxygen Delivery Me thod Room Air 12/01/23 20:00 12/01/23 20:00 12/02/23 00:00 Temperature Pulse Rate Pulse Rate [Left P ulse Oximeter] Respiratory Rate 16 Blood Pressure [Le ft Arm] Blood Pressure [Ri ght Arm] Pulse Oximetry 99 99 97 Oxygen Delivery Me thod Room Air Room Air 12/02/23 03:00 12/02/23 07:35 12/02/23 08:19 Temperature 98.1 F 98.3 F Pulse Rate 72 Pulse Rate [Left P ulse Oximeter] 77 82 Respiratory Rate 16 16 Blood Pressure [Le ft Arm] 98/62 110/70 Blood Pressure [Ri ght Arm] Pulse Oximetry 98 98 Oxygen Delivery Me thod Room Air Room Air 12/02/23 08:19 12/02/23 08:19 12/02/23 11:00 Temperature 98.1 F Pulse Rate Pulse Rate [Left P ulse Oximeter] 82 83 Respiratory Rate 16 16 14 Blood Pressure [Le ft Arm] 119/69 Blood Pressure [Ri ght Arm] Pulse Oximetry 98 96 Oxygen Delivery Me thod Room Air Room Air Documenting provider has reviewed patient's vital signs: yes Labs Labs: Laboratory Results - last 24 hr 12/02/23 12/02/23 04:03 06:02 WBC 10.93 RBC 3.63 L Hgb 11.0 L Hct 33.8 MCV 93 MCH 30 MCHC 33 RDW Coeff of Casandra 12.3 Plt Count 382 Neut % (Auto) 60.4 Lymph % (Auto) 24.6 [place] % (Auto) 10.0 Eos % (Auto) 4.2 Baso % (Auto) 0.4 Neut # (Auto) 6.61 Lymph # (Auto) 2.69 [place] # (Auto) 1.10 H Eos # (Auto) 0.46 Baso # (Auto) 0.04 Abs Immat Gran (auto) 0.04 Imm/Tot Granulo (auto) 0.4 Sodium 137 Potassium 4.1 Chloride 104 Carbon Dioxide 27 Anion Gap 6 L BUN 10 Creatinine 0.8 Estimated Creat Clear 75.26 Estimated GFR 88 Glucose 99 Calcium 8.6 Urine Opiates Screen POSITIVE A Ur Oxycodone Screen Negative Urine Methadone Screen Negative Ur Barbiturates Screen Negative U Tricyclic Antidepress Negative Ur Phencyclidine Scrn Negative Ur Amphetamines Screen POSITIVE A U Methamphetamines Scrn POSITIVE A U Benzodiazepines Scrn POSITIVE A Urine Cocaine Screen Negative U Marijuana (THC) Screen POSITIVE A Ur Drug Screen Comment See Note Imaging MR Brain: Radiologist's impression: Indication: Vertigo, vomiting, right leg paresthesias. Technique: Multisequence multiplanar MRI of the brain without the use of intravenous contrast. Comparison: MR brain dated 12/01/2023. Findings: Susceptibility artifact again significantly limits evaluation on multiple sequences. Within this limitation, a small focus of diffusion restriction is again noted within the left occipital lobe with associated T2/FLAIR hyperintensity. Scattered foci of T2 prolongation are noted within the supratentorial white matter elsewhere. The ventricles are normal in size. Bone marrow signal intensity of the calvarium is within normal limits. Impression: Severely limited exam due to susceptibility artifact on multiple sequences. Within this limitation: 1. Redemonstrated small focus of diffusion restriction and FLAIR hyperintensity in the left occipital lobe most consistent with subacute infarct. 2. Similar scattered foci of T2 prolongation within the supratentorial white matter elsewhere, nonspecific, but commonly seen in the setting of chronic migraine headaches or mild chronic small-vessel ischemic changes. Dictated by Celestino Emerson MD @ 12/02/2023 12:04:25 PM
[2023-12-02] MEDS: CLOPIDOGREL 75 MG TABLET 300 MG PO (12:57)
--- NOTE | 2023-12-02 16:12 | PC.SOCIAL ---
Discharge planning: sawmill production worker consulted with PT/OT after they had assessed the pt and they both conclude that pt can utilize outpatient PT/OT at discharge for her recovery. sawmill production worker will check-in with the pt tomorrow. Social work to follow-up as needed.
[2023-12-02] MEDS: levoFLOXacin 750 MG TABLET PO (18:32)
--- NOTE | 2023-12-02 19:10 | PC.NURSE ---
End of Shift: Patient pleasant and cooperative. Patient vitally stable, lungs clear, BS WNL, IV intact and SL. Patient SBA with ambulation. Patient reports lower back pain, declines tylenol. Patient with patch on left eye, patient does have some visual field cuts in left eye. Patient has some nausea with certain types of activity but patient has not vomited today. Patient tolerating regular diet and urinating well. Tele=NSR
[2023-12-02] MEDS: ROSUVASTATIN CALCIUM 10 MG TABLET 40 MG PO (20:59)
[2023-12-03 02:22] VITALS: BP 99/57; PULSE 96; RESP 16; TEMP 36.8; O2SAT 93
[2023-12-03] MEDS: OMEPRAZOLE 20 MG CAPSULE DR PO (06:38)
--- NOTE | 2023-12-03 06:52 | PC.NURSE ---
Shift note: Pt continue to feel dizzy with mild nausea. A1 and walker in room. Alert and oriented. Vitally stable. Feeling of diplopia when both eyes are open. Eye patch to the left.
[2023-12-03 07:00] VITALS: PULSE 95
[2023-12-03 08:15] VITALS: BP 106/78; PULSE 94; RESP 18; TEMP 36.7; O2SAT 98
[2023-12-03] MEDS: SITAGLIPTIN PHOSPHATE 50 MG TABLET PO (08:32)
[2023-12-03] MEDS: ASPIRIN 81 MG TABLET EC PO (08:32)
[2023-12-03] MEDS: CLOPIDOGREL 75 MG TABLET PO (08:32)
[2023-12-03 09:27] VITALS: PULSE 94; RESP 18; O2SAT 98
--- NOTE | 2023-12-03 11:00 | PC.NURSE ---
Bubble study completed through right AC PIV. Patient tolerated well.
[2023-12-03 11:53] VITALS: BP 96/46; PULSE 98; RESP 18; TEMP 37.1; O2SAT 97
--- NOTE | 2023-12-03 12:33 | PM.DS1 ---
DS: Providers Provider Date Seen: 12/03/23 Date of admission: 12/02/23 13:13 Primary care physician: Eufemia Garcia PA-C Admitting Clinician: Damian Leal MD Attending Physician on discharge: Damian Leal MD Date of Discharge: 12/03/23 DS: Diagnosis Discharge Diagnosis (1) Cerebellar stroke: Status: Acute Problem details: 11/30/2023 with diplopia, vertigo, ataxia and vomiting as her primary manifestations. Clinically marked improvement in the last day. Diplopia has resolved. Dizziness is much better. Ambulating independently. Able to eat and drink without nausea and vomiting Initiate treatment with dual antiplatelet, statin. Optimize diabetes management. Normal echocardiogram. Normal sinus rhythm during the hospital stay. Recommend outpatient cardiac monitoring/Zio patch to evaluate for occult AFib. Outpatient Stroke Neurology follow-up in 2 months. Outpatient OT and PT evaluation in [place]. Four wheeled walker until balance is back to normal. No driving until outpatient follow-up. (2) Hypokalemia: Status: Acute Problem details: Likely due to vomiting from severe vertigo. Now resolved. (3) Hypertension: Status: Chronic Problem details: Blood pressure is low normal, hold metoprolol to allow for permissive hypertension. Patient's blood pressure is relatively low at discharge. Hold metoprolol until outpatient follow-up (4) Diabetes: Status: Chronic Problem details: 11/04/2022-A1c 6.3%; LDL 112; B12 level normal; completed urine microalbumin-normal; on Januvia 50 mg daily DS: Summary Hospital Course Hospital Course: Aileen Sloan is a 53 year old female this is a 53-year-old female with history of diabetes mellitus type 2, migraine headaches, GERD, renal insufficiency, hypertension, fibromyalgia, and anxiety who had sudden onset of ataxia, diplopia and vomiting yesterday. Earlier this month she had an elective surgery to replace her breast implants. She developed infection for which she got started on ciprofloxacin and then was switched to levofloxacin. She just got her drains out last Friday. She has been feeling malaise and feverish in the evenings despite being on antibiotics, however it does sound like this got better over the last week or so. The day prior to admission she was at the store when she suddenly had a sensation of flushing, a sharp stabbing feeling on the medial right eye, a starburst pattern in her left eye and her right nose was burning like she ?inhaled some chlorine at a pool.? She felt dizzy and suddenly nauseated. She started vomiting and says that she vomited for quite a while at the store before she was able to leave and get into her car. She is diabetic in noticed her blood glucose was going up despite not being able to eat anything and having vomiting every once in a while. She denies any hematemesis or bright red blood in her emesis. It has been yellow and clear. She also notices that her left eye has trouble focusing especially while looking straight ahead but seems to improve when she is lying on her right side. She said that she typically does not use any recreational drugs, but did have a marijuana gummy last . Brain MRI shows left cerebellar infarct. Stroke Neurology consult at [facility]. See chart notes for details. Outpatient PT and OT recommended. Four wheeled walker until her balance improves. No driving until medical follow-up as outpatient. Stroke Neurology follow-up in 8 weeks. Aspirin and Plavix for 1 month and then aspirin alone indefinitely. Rosuvastatin. Outpatient Zio patch for detection of occult AFib. Status at Discharge Functional status at discharge: uses cane/walker Overall status at discharge: patient is progressing back to baseline Time Spent with Patient Time attestation: Total time spent providing and/or coordinating discharge services: 45 minutes Time spent: Greater than 30 minutes Exam Narrative: Exam Narrative: She is alert and appears in no distress. Diplopia from yesterday has resolved entirely. Extraocular movements are full. Visual sainz are intact. No facial asymmetry. She moves all 4 extremities well. She is observed to walk with mild unsteadiness, holding onto furniture. Const: Vital Signs, click to edit/add: Vital Signs - 24 hr 12/02/23 15:00 12/02/23 15:00 12/02/23 15:00 Temperature 98.2 F Pulse Rate Pulse Rate [Left P ulse Oximeter] 86 86 Respiratory Rate 14 14 14 Blood Pressure [Le ft Arm] Blood Pressure [Ri ght Arm] 112/62 Pulse Oximetry 98 98 Oxygen Delivery Me thod Room Air Room Air 12/02/23 15:34 12/02/23 19:00 12/02/23 20:00 Temperature 99.1 F Pulse Rate 90 Pulse Rate [Left P ulse Oximeter] 94 Respiratory Rate 16 Blood Pressure [Le ft Arm] 123/74 Blood Pressure [Ri ght Arm] Pulse Oximetry 96 96 Oxygen Delivery Me thod Room Air 12/02/23 22:55 12/02/23 22:55 12/02/23 22:55 Temperature 98.6 F Pulse Rate Pulse Rate [Left P ulse Oximeter] 106 H Respiratory Rate 16 16 16 Blood Pressure [Le ft Arm] 126/73 Blood Pressure [Ri ght Arm] Pulse Oximetry 95 96 Oxygen Delivery Me thod Room Air Room Air 12/02/23 23:00 12/03/23 02:22 12/03/23 07:00 Temperature 98.2 F Pulse Rate 100 95 Pulse Rate [Left P ulse Oximeter] 96 Respiratory Rate 16 Blood Pressure [Le ft Arm] 99/57 L Blood Pressure [Ri ght Arm] Pulse Oximetry 93 Oxygen Delivery Me thod Room Air 12/03/23 08:15 12/03/23 09:27 12/03/23 09:27 Temperature 98.1 F Pulse Rate Pulse Rate [Left P ulse Oximeter] 94 94 Respiratory Rate 18 18 18 Blood Pressure [Le ft Arm] 106/78 Blood Pressure [Ri ght Arm] Pulse Oximetry 98 98 Oxygen Delivery Me thod Room Air Room Air 12/03/23 11:53 Temperature 98.8 F Pulse Rate Pulse Rate [Left P ulse Oximeter] 98 Respiratory Rate 18 Blood Pressure [Le ft Arm] 96/46 L Blood Pressure [Ri ght Arm] Pulse Oximetry 97 Oxygen Delivery Me thod Room Air Documenting provider has reviewed patient's vital signs: yes DS: Data Imaging MR Brain: Radiologist's impression: Indication: Vertigo, vomiting, right leg paresthesias. Technique: Multisequence multiplanar MRI of the brain without the use of intravenous contrast. Comparison: MR brain dated 12/01/2023. Findings: Susceptibility artifact again significantly limits evaluation on multiple sequences. Within this limitation, a small focus of diffusion restriction is again noted within the left occipital lobe with associated T2/FLAIR hyperintensity. Scattered foci of T2 prolongation are noted within the supratentorial white matter elsewhere. The ventricles are normal in size. Bone marrow signal intensity of the calvarium is within normal limits. Impression: Severely limited exam due to susceptibility artifact on multiple sequences. Within this limitation: 1. Redemonstrated small focus of diffusion restriction and FLAIR hyperintensity in the left occipital lobe most consistent with subacute infarct. 2. Similar scattered foci of T2 prolongation within the supratentorial white matter elsewhere, nonspecific, but commonly seen in the setting of chronic migraine headaches or mild chronic small-vessel ischemic changes. Dictated by Celestino Emerson MD @ 12/02/2023 12:04:25 PM Head and neck CTA: Radiologist's impression: CLINICAL HISTORY: Dizziness, bilateral upper extremity numbness and tingling. TECHNIQUE: Standard helical CT image acquisition through the head following the administration of intravenous contrast was performed. 3D and MIP reconstructions were performed at a separate workstation and permanently archived. COMPARISON: None available. FINDINGS: No intracranial proximal large vessel occlusion or flow-limiting luminal stenosis. No evidence of cerebral aneurysm. No findings to suggest an arterial-venous shunting lesion. The major dural venous sinuses and deep venous system are patent. IMPRESSION: No intracranial proximal large vessel occlusion, flow-limiting luminal stenosis, or cerebral aneurysm. Please note that all CT scans at this facility use dose modulation, iterative reconstruction, and/or weight-based dosing when appropriate to reduce radiation dose to as low as reasonably achievable. Dictated by Donn Pritchard MD @ 12/01/2023 10:32:18 AM CLINICAL HISTORY: Dizziness; upper extremity numbness and tingling. TECHNIQUE: Standard helical CT image acquisition through the neck was performed after intravenous contrast bolus enhancement. 3D and MIP reconstructions were performed at a separate workstation and permanently archived. COMPARISON: None available. FINDINGS: The origins of the great vessels from the aortic arch are patent. The common carotid arteries are patent. No significant luminal stenoses of the proximal ICAs by NASCET criteria. The more distal cervical segments of the ICAs are patent. The origins and cervical segments of the vertebral arteries are patent. There are several foci of air along the left anterior chest wall, just deep to the breast implant, of unknown clinical significance. IMPRESSION: Patent cervical arterial vasculature without hemodynamically significant luminal stenosis. Discharge Plan Discharge Disposition: Home, Self-Care Date of Admission: 12/02/23 13:13 Attending Provider on Discharge: Damian Leal Primary Care Provider: Eufemia Garcia Condition: Improved Anticipated Discharge Date/Time: 12/03/23 14:00 Discharge Medications: New clopidogrel 75 mg Tablet 75 mg PO DAILY Qty: 30 0RF aspirin 81 mg Tablet,Delayed Release (Dr/Ec) 81 mg PO DAILY Qty: 100 0RF rosuvastatin 40 mg tablet 40 mg PO DAILY Qty: 30 2RF Continued albuterol sulfate [Ventolin HFA] 90 mcg/actuation HFA aerosol inhaler 2 puff inhalation Q4H PRN (Reason: bronchospasm) Qty: 8.5 8RF lidocaine HCl 4 % gel with pump 1 applic topical BID-QID PRN (Reason: pain) Qty: 90 0RF Rx Instructions: apply 2-4 times daily for back pain diclofenac sodium [Voltaren Arthritis Pain] 1 % gel 2 g topical QID PRN (Reason: low back pain ) Qty: 100 1RF Rx Instructions: apply to low back up to 4 times daily PRN for low back pain multivit with min-folic acid [Adult Multivitamin Gummies] 200 mcg tablet,chewable 1 tab PO DAILY cyanocobalamin (vitamin B-12) 1,000 mcg tablet 1,000 mcg PO DAILY PRN esomeprazole magnesium [Nexium] 20 mg capsule,delayed release(DR/EC) 20 mg PO DAILY Rx Instructions: for acid reflux Januvia 50 mg tablet 50 mg PO DAILY Rx Instructions: once daily for diabetes Held metoprolol succinate 50 mg tablet extended release 24 hr 50 mg PO DAILY Qty: 90 3RF Hold Instructions: Stop taking metoprolol until you see your doctor next week Rx Instructions: once daily for blood pressure Discontinued levofloxacin 750 mg tablet 750 mg PO DAILY Patient Comments: 2 DAYS LEFT diazepam [Valium] 5 mg tablet 5 mg PO TID PRN (Reason: muscle spasm) Discharge Orders: Discharge Order (Routine); Ordered 12/03/23 Ordered By: Damian Leal Additional Instructions: Follow-up with Char Garcia to recheck your stroke symptoms, recheck your blood pressure, arrange for as Zio patch and follow-up with Neurology. No driving until outpatient follow-up. Outpatient physical therapy and occupational therapy in [place] Activity Level: Activity as Tolerated and Use Walker Activity Detail: Use 4 wheeled walker until balance is back to normal. Discharge Diet: Regular Follow Up Appointments: Eufemia Garcia PA-C [Primary Care Provider] - (Follow-up next week) Forms: [employer] Info Instructions
--- NOTE | 2023-12-03 14:31 | PC.SOCIAL ---
Discharge planning: insulation worker met with pt and her mother today. Pt stated that she is excited to go home today and plans to complete outpatient PT/OT here in [place] [facility]. Pt states that her mother lives in the apartment above her and she is planing to stay with her for the first few days after leaving the hospital until she feels more confident on being in her own apartment. As mentioned before, pt's mother lives in the apartment above her, so when she does return to staying in her own apartment, pt's mother is near by and can help her, if needed. Social work to follow-up as needed.
--- NOTE | 2023-12-03 15:36 | PC.NURSE ---
Discharge: Patient pleasant and cooperative, A&O. VSS, afebrile. SpO2 maintained above 90% on RA. IV removed with tip intact. Discharge instructions provided, all questions answered. Discharged to home with family member.
== END 2023-12-03 14:14 | disposition home or self-care (01) | DRG 66 ==
LOC: ED 13:48 → MEDSURG 14:40
PROVIDERS: Family Medicine; Admitting Provider Family Medicine; Emergency Provider Student in an Organized Health Care Education/Training Program; PCP Physician Assistant Medical; Visit Provider Family Medicine
DX: I63.9 Cerebral infarction, unspecified (principal); R27.0 Ataxia, unspecified; H53.2 Diplopia; R42 Dizziness and giddiness; R11.10 Vomiting, unspecified; E87.6 Hypokalemia; I45.81 Long QT syndrome; I12.9 Hypertensive chronic kidney disease with stage 1 through stage 4 chronic kidney disease, or unspecified chronic kidney disease; E11.22 Type 2 diabetes mellitus with diabetic chronic kidney disease; N18.30 Chronic kidney disease, stage 3 unspecified; Z79.84 Long term (current) use of oral hypoglycemic drugs; E66.9 Obesity, unspecified; K21.9 Gastro-esophageal reflux disease without esophagitis; F41.9 Anxiety disorder, unspecified; M79.7 Fibromyalgia; J45.20 Mild intermittent asthma, uncomplicated; G43.909 Migraine, unspecified, not intractable, without status migrainosus; F17.210 Nicotine dependence, cigarettes, uncomplicated
CPT/HCPCS: 36415; 70450; 70496; 70498; 70551; 80048; 80306; 82565; 82962; 84484; 85025; 87631; 93005; 93306; 94761; 96374; 97110; 97112; 97116; 97161; 97162; 97165; 97530; 97535; 99283; 99285; G0378; G0427; A9270; J1200; J2765; J3480; J7030; Q9967

== ENCOUNTER 2023-12-10 15:44 | Outpatient (CLI) | payer MEDICAID, SELFPAY ==
--- OUTSIDE RECORDS SUMMARY | 2023-12-10 15:48 | XMS_ITS | Clinical Summary ---
Author Organization [facility] Address [place], [place] [address] Care Team Providers Care Soil Biology Teacher Name Role Phone Anthony Christy Yap PT Primary Care Provider [phone] Allergies No known active allergies Medications Medication [...] 05/15/2010 INSOMNIA NEC 09/03/2000 DEPRESSION, NEUROTIC 09/03/2000 Encounters Date Type Department Care Team Description 12/03/2023 9:30 AM CDT Ancillary Procedure [facility] [place] [facility] [address] [place] [address] 12/02/2023 Office Visit [facility] [address] [facility] [address] [place] [address] Rajeev Lebron MD Telehealth ([facility]) from Last 3 Months Immunizations Name Administration Dates Next Due Influenza, [...] Comments Blood Pressure 117/60 05/24/2015 2:50 PM ELECTROPLATING WORKER Pulse 85 05/24/2015 2:50 PM ELECTROPLATING WORKER Temperature 36.3 ??C (97.3 ??F) 05/24/2015 1:41 PM CS T Respiratory Rate 16 05/24/2015 2:50 PM ELECTROPLATING WORKER Oxygen Saturation 96% 05/24/2015 2:50 PM ELECTROPLATING WORKER Inhaled Oxygen Concentration - - Weight 86.5 kg (190 lb 11.2 oz) 016 10:28 AM ELECTROPLATING WORKER Height 167.6 cm (5' 5.98) 05/23/2015 8:44 AM CS T Body Mass Index 30.79 05/23/2015 8:44 AM ELECTROPLATING WORKER Plan of Treatment Health Maintenance Due Date [...] (1 of 2) 07/13/2019 COVID-19 vaccine series (2022-24 season) 2022 Pap test for age 21-65 05/31/2023 , 05/31/2020, 04/29/2017, Additional history exists Influenza for age 50-64 12/14/2023 01/15/2011, 04/27 Pneumococcal series for age 6-64 Aged Out No longer eligible based on patient's age to complete this topic Medical Devices Implanted Type Area Siphon Operator Device Identifier Shelf Expiration Date Model / Serial / Lot Ancr Sut 2.4x8.5mm Suturetak Micro W/2-0 Fiberwire Ndls Bio - [id number] Implanted:Qty: 1 on 05/24/2015 by Jon Mcpherson MD at [facility] Left: Elbow [employer] 01/11/2017 [id number] CNF # / / [id number] Procedures Procedure Name Priority Date/Time Associated Diagnosis Comments ECHO TTE COMPLETE WO CONTRAST W BUBBLE Routine 12/03/2023 11:23 AM CDT Stroke (cerebrum) (HC) CARDIOVASCULAR TECHNICIAN THIN PREP PAP SCREEN IMAGED Routine 05/31/2020 2:30 PM ELECTROPLATING WORKER LIPID PANEL W REFLEX MEASURED LDL Routine 05/22/2010 10:05 AM ELECTROPLATING WORKER Screening for lipoid disorders from Last 3 Months or Most Recently Relevant to Health Maintenance Results * ECHO TTE COMPLETE WO CONTRAST W BUBBLE (12/03/2023 11:23 AM CDT) AORTIC VALVE MEAN PG 6 mmHg EJECTION FRACTION 66 % LVEDD 4.4 cm Anatomical Region Laterality Modality Ultrasound 12/03/2023 10:4 7 AM CDT Narrative 12/03/2023 11:36 AM CDT ECHOCARDIOGRAM RUBY CHRISTIAN ? Accession#: ?? [id number] : ?1970 53 years Study Date: ?? 12/03/2023 10:47:28 AM Gender: F ?BP: ? 106/78 mmHg Height: 168.00 cm ?BSA: ?1.87 m? ? ? Weight: 77.00 kg ? Tech: ? MJW ? Referring MD: ALCIDES LEAL Site: ? [facility] Reading Location: [facility] Patient Location: Outpatient. Procedure: 2D w/ Bubbles, Color Doppler and Spectral Doppler. Indication for study: CVA Cardiac Rhythm: Regular.Study quality: Fair. Imaging limitations: This study was subject to imaging limitations due to a prominent lung artifact and breast implant. Final Impressions: 1. Normal left ventricular size, normal wall thickness, normal global systolic function, calculated EF of 66 %. 2. Right ventricular cavity size is normal, global systolic RV function is normal. 3. No significant valve disease detected. Comparison There are no prior studies on this patient for comparison purposes. Chamber Sizes and Function Normal left ventricular size, normal wall thickness, normal global systolic function, calculated EF of 66 %. Left atrial size is normal. Right ventricular cavity size is normal, global systolic RV function is normal. RV wall thickness is normal. The right atrium is normal. Right atrial volume index is 13 ml/m? ? ?. Right atrial area is 12 cm? ? ?. The pulmonary artery is of normal size and origin. The sinus of Valsalva is normal sized. The ascending aorta is normal sized. Valves, RV Pressures and Diastolic Function The aortic valve is not well visualized , no stenosis and no regurgitation. The mitral valve is normal in structure, no mitral regurgitation. Normal diastolic function. The tricuspid valve is normal in structure. Tricuspid regurgitation is regurgitation is not evident. The pulmonic valve is normal. No pulmonary regurgitation. Masses, Effusion, Shunts There is no pericardial effusion. The inferior vena cava is normal sized, respiratory size variation greater than 50%. No left to right shunting was detected by limited color flow Doppler interrogation of the interatrial septum. MEASUREMENTS AND CALCULATIONS 2-D Measurements and LV Function: LVID (d) 4.4 cm Planimetered EF 66 % LVID (s) 3.4 cm LV FS% (2D) ? 23 % IVS (d) ??1.0 cm LVOT diameter ?? 2.1 cm LVPW (d) 1.1 cm HR ?87 bpm Ao Sinus 3.1 cm LA Vol index ?24 ml/m2 Asc Ao ?? 3.0 cm RA Vol index ?13 ml/m2 LA ? 3.1 cm RA area ? 12 cm?RV Max 4C (d) ?? 2.9 cm Diastology: Mitral ?Tissue Doppler E Peak 0.8 m/s ??e', Septum ? 0.09 m/s A Peak 0.7 m/s ??e', Lateral ?0.11 m/s E/A ?1.2 ?E/e' Average ?? 8.16 DT ? 186 msec Aortic Valve: Vmax ? 1.6 m/s ??TERRENCE (V) ?? 2.83 cm? ? ? VTI ?0.33 m ?? TERRENCE (I) ?? 2.50 cm? ? ? LVOT V max ? 1.3 m/s ??Max PG ?10 mmHg LVOT VTI ? 0.24 m ?? Mean PG ?? 6 mmHg SV ? 81 ml ?Dim Index 0.74 SV index ? 44 ml/m? ? ? CO ?7.1 l/min AV Ejection Time 0.27 sec CI ?3.8 l/min/m? ? ? AV Flow Rate ? 305 ml/s Mitral Valve: MVA ?4.1 cm? ? ? MV P 1/2 54 msec Tricuspid Valve and estimated PA pressures: TAPSE 2.3 cm . This study was interpreted by an [facility] accredited facility. CC: Med/Surg - IP [facility], [facility] ([facility]) [facility]. ??Final ?? Procedure Note Rob Stephens MD - 12/03/2023 ECHOCARDIOGRAM RUBY CHRISTIAN : 1970 53 years Study Date: 12/03/2023 10:47:28 AM Gender: F BP: 106/78 mmHg Height: 168.00 cm BSA: 1.87 m? ? ? Weight: 77.00 kg Tech: MYLA Referring MD: ALCIDES LEAL Site: [facility] Reading Location: [facility] Patient Location: Outpatient. Procedure: 2D w/ Bubbles, Color Doppler and Spectral Doppler. Indication for study: CVA Cardiac Rhythm: Regular.Study quality: Fair. Imaging limitations: This study was subject to imaging limitations due toa prominent lung artifact and breast implant. Final Impressions: 1. Normal left ventricular size, normal wall thickness, normal globalsystolic function, calculated EF of 66 %. 2. Right ventricular cavity size is normal, global systolic RV functionis normal. 3. No significant valve disease detected. Comparison There are no prior studies on this patient for comparison purposes. Chamber Sizes and Function Normal left ventricular size, normal wall thickness, normal globalsystolic function, calculated EF of 66 %. Left atrial size is normal.Right ventricular cavity size is normal, global systolic RV function isnormal. RV wall thickness is normal. The right atrium is normal. Rightatrial volume index is 13 ml/m? ? ?. Right atrial area is 12 cm? ? ?. Thepulmonary artery is of normal size and origin. The sinus of Valsalva isnormal sized. The ascending aorta is normal sized. Valves, RV Pressures and Diastolic Function The aortic valve is not well visualized , no stenosis and noregurgitation. The mitral valve is normal in structure, no mitralregurgitation. Normal diastolic function. The tricuspid valve is normal instructure. Tricuspid regurgitation is regurgitation is not evident. Thepulmonic valve is normal. No pulmonary regurgitation. Masses, Effusion, Shunts There is no pericardial effusion. The inferior vena cava is normal sized,respiratory size variation greater than 50%. No left to right shunting wasdetected by limited color flow Doppler interrogation of the interatrialseptum. MEASUREMENTS AND CALCULATIONS 2-D Measurements and LV Function: LVID (d) 4.4 cm Planimetered EF 66 % LVID (s) 3.4 cm LV FS% (2D) 23 % IVS (d) 1.0 cm LVOT diameter 2.1 cm LVPW (d) 1.1 cm HR 87 bpm Ao Sinus 3.1 cm LA Vol index 24 ml/m2 Asc Ao 3.0 cm RA Vol index 13 ml/m2 LA 3.1 cm RA area 12 cm? ? ? RV Max 4C (d) 2.9 cm Diastology: Mitral Tissue Doppler E Peak 0.8 m/s e', Septum 0.09 m/s A Peak 0.7 m/s e', Lateral 0.11 m/s E/A 1.2 E/e' Average 8.16 DT 186 msec Aortic Valve: Vmax 1.6 m/s TERRENCE (V) 2.83 cm? ? ? VTI 0.33 m TERRENCE (I) 2.50 cm? ? ? LVOT V max 1.3 m/s Max PG 10 mmHg LVOT VTI 0.24 m Mean PG 6 mmHg SV 81 ml Dim Index 0.74 SV index 44 ml/m? ? ? CO 7.1 l/min AV Ejection Time 0.27 sec CI 3.8 l/min/m? ? ? AV Flow Rate 305 ml/s Mitral Valve: MVA 4.1 cm? ? ? MV P 1/2 54 msec Tricuspid Valve and estimated PA pressures: TAPSE 2.3 cm . This study was interpreted by an [facility] accredited facility. CC: Med/Surg - IP [facility], [facility] ([facility]) [facility]. Final Alcides Leal MD ECHO ORD * CARDIOVASCULAR TECHNICIAN THIN PREP PAP SCREEN IMAGED (05/31/2020 2:30 PM ELECTROPLATING WORKER) Case Report Gynecologic Cytology Report ? Case: [id number] ? Authorizing Provider: ??Unknown, Doctor ?Collected: ? 05/31/2020 1430 ? Ordering Location: ? [facility] ?Received: ?06/02/2020 0811 ? First Screen: ?Baccam, Minie ? Specimen: ?CARDIOVASCULAR TECHNICIAN ThinPrep Vial Screening, Cervical/Vaginal ? 06/10/2020 1:27 PM [facility] INTERPRETATION/ RESULT NEGATIVE FOR INTRAEPITHELIAL LESION OR MALIGNANCY (NIL) (none) 06/10/2020 1:27 PM [facility] IMEN ADEQUACY Satisfactory for evaluation Endocervical component present 06/10/2020 1:27 PM [facility] HPV REQUEST HPV and PAP 06/10/2020 1:27 PM [facility] Menstrual Status 06/10/2020 1:27 PM [facility] Comment:Menopause Additional Information 06/10/2020 1:27 PM [facility] Comment: Interpreted at [facility] - [address], [place] [address] Automated Review Successful 06/10/2020 1:27 PM [facility] Comment:Specimen processed s uccessfully by automated tax assistant device, ThinPrep Imaging System, [employer] ANCILLARY TESTING CARDIOVASCULAR TECHNICIAN HPV Ordered, Please see separate report 06/10/2020 1:27 PM [facility] Note The pap test is [...] pre-malignant and malignant lesions. 06/10/2020 1:27 PM [facility] Other (Cervical/Vagina l) 05/31/2020 2:30 PM ELECTROPLATING WORKER 06/02/2020 8:11 AM ELECTROPLATING WORKER Doctor Unknown PATHOLOGY/CYTOLOGY [facility] [address] [place] [address], [place] * (ABNORMAL) LIPID PANEL W REFLEX MEASURED LDL (05/22/2010 10:05 AM ELECTROPLATING WORKER) CHOLESTEROL,TOTAL 110 110 - 199 mg/dL [facility] TRIGLYCERIDES 38(L) 40 - 149 mg/dL [facility] HDL CHOLESTEROL 43 >40 mg/dL [facility] CHOL/HDL RATIO 2.56 <4.51 [facility] LDL CHOLESTEROL 59 <131 mg/dL [facility] PATIENT STATUS Fasting [facility] Blood specimen (specimen) BLOOD SPECIMEN / Unknown 05/22/2010 10:05 AM ELECTROPLATING WORKER 05/22/2010 9:33 AM ELECTROPLATING WORKER Norberto Nicholosn MD CHEMISTRY [facility] INTERNAL ZIP [id number] [place] [address] from Last 3 Months or Most Recently Relevant to Health Maintenance Advance Directives * Full Code (Latest Code Status on File) Date Activated Date Inactivated Comments 05/24/2015 1:33 PM 05/24/2015 5:10 PM * Full Code Date Activated Date Inactivated Comments 05/24/2015 10:17 AM 05/24/2015 1:33 PM Care Teams Soil Biology Teacher Relationship Specialty Start Date End Date Christy Cruz PT [address] [facility] [place] [address] PCP - General Physical Therapist 05/22/15
--- OUTSIDE RECORDS SUMMARY | 2023-12-10 15:48 | XMS_ITS | Encounter Summary ---
Author Organization [facility] Address [address] [place] [address] Care Team Providers Care Medical Services Assistant Name Role Phone Devin Britt DO Primary Care Provider [phone] Damian Dowell MD Unavailable [phone] Collin Singh MD Unavailable Unavailable Frw, None Primary Care Provider Unavailabl e Allison Smyth Primary Care Provider [phone] Lyndsey Guzman MD Primary Care Provider + [phone] Carine Smallwood MD Unavailable [phone] Vee Levy-C Unavailable [phone] Carine Smallwood MD Unavailable [phone] Vee Levy-C Unavailable [phone] Carine Smallwood MD Unavailable [phone] Vee Levy-C Unavailable [phone] Carine Smallwood MD Unavailable [phone] Vee Levy-C Unavailable [phone] Carine Smallwood MD Unavailable [phone] Vee Levy-C Unavailable [phone] Carine Smallwood MD Unavailable Vee Levy PA-C Unavailable Carine Smallwood MD Unavailable [phone] Vee Levy PA-C Unavailable [phone] Reason for Visit * Reason Onset Date Comments Refill Request 05/30/2006 Francisco/zaida Encounter Details Date Type Department Care Team (Late st Contact Info) Description 05/30/2006 Refill [facility] [place] [facility] [address] [place] [address] Collin Singh MD Refill Request [...] as she has not been seen since [facility] and hasn't been able to make other appts and currently has no appt made. AND CHIEF OPERATING OFFICER documented in this encounter Plan of Treatment Not on file documented as of this encounter Visit Diagnoses Not on filedocumented in this encounter Care Teams Medical Services Assistant Relationship Specialty Start Date End Date Devin Britt DO [address] [place] [address] PCP - General 04/18/05 09/04/11 Damian Dowell MD [address] [place] [address] PCP - Surgery 05/08/04 03/14/14 Collin Singh MD [address] [place] [address] PCP - Orthopaedics 01/23/06 02/19/18 Frw, None PCP - General Family Practice 09/05/11 09/18/13 Libra Sabihalatisha PCP - General Family Practice 09/19/13 08/27/20 Lyndsey Guzman MD [facility] [address], [place] [address] PCP - General Family Medicine 08/28/20 Carine Smallwood MD [address] [place] [address] Assigned Surgical Provider 09/17/20 Vee Levy PA-C [address] [place] [address] Assigned Surgical Provider 10/29/20 Carine Smallwood MD [address] [place] [address] Assigned Surgical Provider 11/05/20 Vee Levy PA-C [address] [place] [address] Assigned Surgical Provider 12/03/20 Carine Smallwood MD [address] [place] [address] Assigned Surgical Provider 12/31/20 Vee Levy PA-C [address] [place] [address] Assigned Surgical Provider 03/11/21 Carine Smallwood MD [address] [place] [address] Assigned Surgical Provider 02/25/21 Vee Levy PA-C [address] [place] [address] Assigned Surgical Provider 02/11/21 Carine Smallwood MD [address] [place] [address] Assigned Surgical Provider 03/25/2104/14/21 Vee Levy PA-C [address] [place] [address] Assigned Surgical Provider 04/15/2104/21/21 Carine Smallwood MD [address] [place] [address] Assigned Surgical Provider 05/27/2112/14/21 Vee Levy PA-C [address] [place] [address] Assigned Surgical Provider 05/20/2104/04 Carine Smallwood MD [address] [facility] [address] [place] [address] Assigned Surgical Provider 04/22/2105/19/21 Vee Levy PA-C [address] [facility] [address] [place], [place] [address] Assigned Surgical Provider 12/15/21 documented as of this encounter
--- OUTSIDE RECORDS SUMMARY | 2023-12-10 15:48 | XMS_ITS | Encounter Summary ---
Author Organization [facility] Address [address] [place] [address] Care Team Providers Care Operations Technician Name Role Phone Devin Britt DO Primary Care Provider [phone] Damian Dowell MD Unavailable [phone] Collin Singh MD Unavailable Unavailable Frw, None Primary Care Provider Unavailabl e Allison Smyth Primary Care Provider [phone] Lyndsey Guzman MD Primary Care Provider + [phone] Carine Smallwood MD Unavailable [phone] Vee Levy-C Unavailable [phone] Carine Smallwood MD Unavailable [phone] Vee Levy-C Unavailable [phone] Carine Smallwood MD Unavailable [phone] Vee Levy-C Unavailable [phone] Carine Smallwood MD Unavailable [phone] Vee Levy-C Unavailable [phone] Carine Smallwood MD Unavailable [phone] Vee Levy-C Unavailable [phone] Carine Smallwood MD Unavailable [phone] Vee Levy PA-C Unavailable [phone] Carine Smallwood MD Unavailable [phone] Vee Levy PA-C Unavailable Encounter Details Date Type Department Care Team (Late st Contact Info) Description 05/06/2005 [facility] [place] Inpatient Dept [address] [place] [address] Frw, Inpatient Provider Social History [...] without complications. Bernardino Key M.D. Fadia cc: ODE BUILDER documented in this encounter Plan of Treatment Not on file documented as of this encounter Visit Diagnoses Not on filedocumented in this encounter Care Teams Operations Technician Relationship Specialty Start Date End Date Devin Britt DO [address] [place] [address] PCP - General 04/18/05 09/04/11 Damian Dowell MD [address] [place] [address] PCP - Surgery 05/08/04 03/14/14 Collin Singh MD [address] [place] [address] PCP - Orthopaedics 01/23/06 02/19/18 Frw, None PCP - General Family Practice 09/05/11 09/18/13 Allison Smyth PCP - General Family Practice 09/19/13 08/27/20 Lyndsey Guzman MD [facility] [address] [place] [address] PCP - General Family Medicine 08/28/20 Carine Smallwood MD [address] [place] [address] Assigned Surgical Provider 09/17/20 Vee Levy PA-C [address] [place] [address] 225207 Assigned Surgical Provider 10/29/20 Carine Smallwood MD [address] [place] [address] 180467 Assigned Surgical Provider 11/05/20 Vee Levy PA-C [address] [place] [address] Assigned Surgical Provider 12/03/20 Carine Smallwood MD [address] [place] [address] Assigned Surgical Provider 12/31/20 Vee Levy PA-C [address] [place] [address] Assigned Surgical Provider 03/11/21 Carine Smallwood MD [address] [place] [address] Assigned Surgical Provider 02/25/21 Vee Levy PA-C [address] [place] [address] Assigned Surgical Provider 02/11/21 Carine Smallwood MD [address] [place] [address] Assigned Surgical Provider 03/25/2104/14/21 Vee Levy PA-C [address] [place] [address] Assigned Surgical Provider 04/15/2104/21/21 Carine Smallwood MD [address] [place] [address] Assigned Surgical Provider 05/27/2112/14/21 Vee Levy PA-C [address] [place] [address] Assigned Surgical Provider 05/20/2104/04 Carine Smallwood MD [address] [place] [address] Assigned Surgical Provider 04/22/2105/19/21 Vee Levy PA-C [address] [place] [address] Assigned Surgical Provider 12/15/21 documented as of this encounter
--- OUTSIDE RECORDS SUMMARY | 2023-12-10 15:48 | XMS_ITS | Continuity of Care Document ---
Author Organization [facility] Address [address] [place] [address] [place] [address] Phone Care Team Providers Care Automation Operator Name Role Phone Will Celestino MARTINEZ Unavailable [...] tablet - Active Flonase 50 mcg/actuation Nasal [place] - Active dicyclomine 10 mg capsule - Active Procedures Procedure Date OFFICE CONSULTATION Advance Directives Directive Yes / No Effective Date File Name No Information Encounters Encounter Description Practice Location Reason(s) For Visit Diagnoses Date Provider Providers Copied on Encounter [facility], [address] [place] [address], [id number] , [place] tel:[phone] [facility] [place] No Information 2 Will Celestino. [address] [facility] [place], [place], [id number] , [place]. tel:[phone] [facility], [address] [facility] [place], [id number] , [place] tel:[phone] [facility] Molly widespread pain (chief complaint) LumbagoCervicalgiaP ain in joint involving ankle and footMyalgia and myositis, unspecifiedPain in joint involving shoulder regionPain in joint involving pelvic region and thighDepressionHype rtension, Benign 3 Devin Dunnw. [address] [place], [id number] , . tel:[phone] Referring Provider: Celestino Garcia, [address] [place], [address] . tel:[phone] Family History Family Member Type Diagnosis Age [...]
--- OUTSIDE RECORDS SUMMARY | 2023-12-10 15:48 | XMS_ITS | Referral Summary ---
Author Organization [place] Address [address] [place] [address] Care Team Providers Care Electronic Gluer Name Role Phone Lyndsey Guzman MD Primary Care Provider [phone] Allergies Active Allergy Reactions Criticality Noted Date [...] Overview: Added automatically from request for surgery [id number] Tear of medial cartilage or meniscus of [...] A.M.A. LIPID PANEL Routine 04/25/2005 4:53 PM TERRITORY ACCOUNT REPRESENTATIVE Herpes Simplex Nos Acne Nec HCL PAP THIN LAYER SCREEN Routine 04/25/2005 12:00 AM TERRITORY ACCOUNT REPRESENTATIVE Routine Medical Exam C MAMMOGRAM, SCREENING Routine 05/02/2004 Symptoms In Breast Nec Dysuria from Last 3 Months or Most Recently Relevant to Health Maintenance Results * (ABNORMAL) Glucose by meter (10/10/2020 5:29 AM CDT) Glucose 128(H) 70 - 99 mg/dL 10/10/2020 5:35 AM CDT POINT OF CARE TEST, GLUCOSE 10/10/2020 5:29 AM CDT 10/10/2020 5:35 AM CDT Carine Smallwood MD LAB - [facility] POCT POINT OF CARE TEST, GLUCOSE * [...] correlate. ALTHEA NINO MD Pauline Ryan MD [facility] ORDERABLES * COLONOSCOPY (08/30/2005) Devin Lopez DO PROCEDURES Performing Organization Address [facility] de Phone Number [facility] [address] * (ABNORMAL) A.M.A. LIPID PANEL (04/25/2005 4:53 PM TERRITORY ACCOUNT REPRESENTATIVE) Cholesterol 180 0 - 200 mg/dL [facility] Comment: LDL Cholesterol is the primary guide to therapy: LDL-cholesterol goal in high risk patients is <100 mg/dL and in very high risk patients is <70 mg/dL. The NCEP recommends further evaluation of: patients with cholesterol <200 mg/dL if additional risk factors are present, cholesterol >240 mg/dL, triglycerides >150 mg/dL, or HDL <40 mg/dL. Triglycerides 190(H) 0 - 150 mg/dL [facility] HDL Cholesterol 35(L) 50 - 110 mg/dL [facility] LDL Cholesterol Calculated 107 0 - 129 mg/dL [facility] Comment: LDL Cholesterol is the primary guide to therapy: LDL-cholesterol goal in high risk patients is <100 mg/dL and in very high risk patients is <70 mg/dL. VLDL-Cholesterol 38(H) 0 - 30 mg/dL [facility] Cholesterol/HDL Ratio 5.1(H) 0.0 - 5.0 [facility] 04/25/2005 4:53 PM TERRITORY ACCOUNT REPRESENTATIVE 04/25/2005 5:03 PM TERRITORY ACCOUNT REPRESENTATIVE Devin Lopez DO LABORATORY Performing Organization Address [facility] Co de Phone Number [facility] [address] * A THIN LAYER PAP SCREEN (04/25/2005 12:00 AM TERRITORY ACCOUNT REPRESENTATIVE) PAP JITENDRA Bolden Report Patient Name: RUBY CHRISTIAN MR#: [id number] Specimen #: [id number] Collected: 04/25/2005 Received: 04/28/2005 Reported: 05/01/2005 10:12 Ordering Phy(s): DEVIN LOPEZ SPECIMEN/STAIN PROCESS: Pap thin layer prep screening (SurePath) ? Pap-Cyto x 1, Reflex HPV x 1 SOURCE: Cervical, endocervical Pap thin layer prep screening (SurePath) SPECIMEN ADEQUACY: Satisfactory for evaluation. -Transitional zone component present. CYTOLOGIC INTERPRETATION: Negative for Intraepithelial Lesion or Malignancy Electronically signed out by: ALANNA Booth (ASCP) Processed at [facility], screened at [facility] Laboratory CLINICAL HISTORY: LMP: no lmp recorded Previous normal pap: 05-02-04, TESTING LAB LOCATION: [address] [address] COLLECTION SITE: Client: ??[facility] Location: [facility] 04/25/2005 04/28/2005 8:0 1 AM TERRITORY ACCOUNT REPRESENTATIVE Devin Lopez DO LABORATORY COPATH * MAMMOGRAM, [...] Advance Directives For more information, please contact: [phone] * Full Code (Latest Code Status on File) Date Activated Date Inactivated Comments 10/09/2020 2:28 PM 10/10/2020 1:54 PM All basic an d advanced life-sustaining interventions are performed as appropriate Post op Question Answer Comments Code status determined by: Other (please documen t) Care Teams Electronic Gluer Relationship Specialty Start Date End Date Lyndsey Guzman MD [facility] [address], [place] [address] PCP - General Family Medicine 08/28/20
--- OUTSIDE RECORDS SUMMARY | 2023-12-10 15:48 | XMS_ITS | Clinical Summary ---
Author Organization [place] Address [address] [place] [address] Care Team Providers Care Tourism Radio Presenter Name Role Phone Lyndsey Guzman MD Primary Care Provider [phone] Allergies Active Allergy Reactions Criticality Noted Date [...] Overview: Added automatically from request for surgery [id number] Tear of medial cartilage or meniscus of [...] A.M.A. LIPID PANEL Routine 04/25/2005 4:53 PM MOOSE HUNTER Herpes Simplex Nos Acne Nec HCL PAP THIN LAYER SCREEN Routine 04/25/2005 12:00 AM MOOSE HUNTER Routine Medical Exam C MAMMOGRAM, SCREENING Routine 05/02/2004 Symptoms In Breast Nec Dysuria from Last 3 Months or Most Recently Relevant to Health Maintenance Results * (ABNORMAL) Glucose by meter (10/10/2020 5:29 AM CDT) Glucose 128(H) 70 - 99 mg/dL 10/10/2020 5:35 AM CDT POINT OF CARE TEST, GLUCOSE 10/10/2020 5:29 AM CDT 10/10/2020 5:35 AM CDT Carine Smallwood MD [facility] POCT POINT OF CARE TEST, GLUCOSE [...] correlate. ALTHEA NINO MD Pauline Ryan MD [facility] ORDERABLES * COLONOSCOPY (08/30/2005) Devin Lopez DO PROCEDURES [facility] [address] * (ABNORMAL) A.M.A. LIPID PANEL (04/25/2005 4:53 PM MOOSE HUNTER) Cholesterol 180 0 - 200 mg/dL [facility] LAB/RAD Comment: LDL Cholesterol is the primary guide to therapy: LDL-cholesterol goal in high risk patients is <100 mg/dL and in very high risk patients is <70 mg/dL. The NCEP recommends further evaluation of: patients with cholesterol <200 mg/dL if additional risk factors are present, cholesterol >240 mg/dL, triglycerides >150 mg/dL, or HDL <40 mg/dL. Triglycerides 190(H) 0 - 150 mg/dL [facility] LAB/RAD HDL Cholesterol 35(L) 50 - 110 mg/dL [facility] LAB/RAD LDL Cholesterol Calculated 107 0 - 129 mg/dL [facility] LAB/RAD Comment: LDL Cholesterol is the primary guide to therapy: LDL-cholesterol goal in high risk patients is <100 mg/dL and in very high risk patients is <70 mg/dL. VLDL-Cholesterol 38(H) 0 - 30 mg/dL [facility] LAB/RAD Cholesterol/HDL Ratio 5.1(H) 0.0 - 5.0 [facility] LAB/RAD 04/25/2005 4:53 PM MOOSE HUNTER 04/25/2005 5:03 PM MOOSE HUNTER Devin Lopez DO LABORATORY [facility] [address] * A THIN LAYER PAP SCREEN (04/25/2005 12:00 AM MOOSE HUNTER) PAP JITENDRA Bolden Report Patient Name: RUBY CHRISTIAN MR#: [id number] Specimen #: [id number] Collected: 04/25/2005 Received: 04/28/2005 Reported: 05/01/2005 10:12 Ordering Phy(s): DEVIN LOPEZ SPECIMEN/STAIN PROCESS: Pap thin layer prep screening (SurePath) ? Pap-Cyto x 1, Reflex HPV x 1 SOURCE: Cervical, endocervical Pap thin layer prep screening (SurePath) SPECIMEN ADEQUACY: Satisfactory for evaluation. -Transitional zone component present. CYTOLOGIC INTERPRETATION: Negative for Intraepithelial Lesion or Malignancy Electronically signed out by: ALANNA Booth (ASCP) Processed at [facility], screened at [facility] Laboratory CLINICAL HISTORY: LMP: no lmp recorded Previous normal pap: 05-02-04, TESTING LAB LOCATION: [address] [place] [address] COLLECTION SITE: Client: ??[facility] Location: [facility] 04/25/2005 04/28/2005 8:0 1 AM MOOSE HUNTER Devin Lopez DO LABORATORY COPATH * MAMMOGRAM, SCREENING (05/02/2004) MAMMOGRAM CAT 2 [facility] LAB/RAD Anatomical Region Laterality Modality Other [...] 69 DATE OF SERVICE: 05-02-04 ORDERING PHYSICIAN: ?CLAIRE PATIENT STATUS: Outpt BILATERAL SCREENING MAMMOGRAM ADDENDUM: No previous films done can be found. IMAGING IMPRESSION: ??ARC BIRADS Category No. 1, negative. A letter has been sent to the patient. Norberto Lynch M.D./siva D: 05-08-04 T: 05-09-04 Edwin Rangel MD SPECIAL IMAGING STUD IES from Last 3 Months or Most Recently Relevant to Health Maintenance Advance Directives For more information, please contact: [phone] * Full Code (Latest Code Status on File) Date Activated Date Inactivated Comments 10/09/2020 2:28 PM 10/10/2020 1:54 PM All basic an d advanced life-sustaining interventions are performed as appropriate Post op Question Answer Comments Code status determined by: Other (please linda t) Care Teams Tourism Radio Presenter Relationship Specialty Start Date End Date Lyndsey Guzman MD [facility] [address] [place] [address] PCP - General Family Medicine 08/28/20
--- OUTSIDE RECORDS SUMMARY | 2023-12-10 15:48 | XMS_ITS | Encounter Summary ---
Author Organization [place] Address [address] [place] [address] Care Team Providers Care Cuff Turner Name Role Phone Devin Britt DO Primary Care Provider [phone] Damian Dowell MD Unavailable [phone] Collin Anthony MD Unavailable Unavailable Frw, None Primary Care Provider Unavailabl e Allison Smyth Primary Care Provider [phone] Lyndsey Guzman MD Primary Care Provider + [phone] Carine Smallwood MD Unavailable [phone] Vee Levy-C Unavailable [phone] Carine Smallwood MD Unavailable [phone] Vee Levy-C Unavailable [phone] Carine Smallwood MD Unavailable [phone] Vee Levy-C Unavailable [phone] Carine Smallwood MD Unavailable [phone] Vee Levy-C Unavailable [phone] Carine Smallwood MD Unavailable [phone] Vee Levy-C Unavailable [phone] Carine Smallwood MD Unavailable Vee Levy PA-C Unavailable Carine Smallwood MD Unavailable [phone] Vee Levy PA-C Unavailable [phone] Reason for Visit * Reason Onset Date Comments Refill Request 03/07/2006 zaida fine Encounter Details Date Type Department Care Team (Late st Contact Info) Description 03/07/2006 Refill [facility] [place] [facility] [address] [place] [phone] Collin Anthony MD Refill Request (zaida [...] will FAX it directly to the pharmacy. 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 documented in this encounter Plan of Treatment Not on file documented as of this encounter Visit Diagnoses Not on filedocumented in this encounter Care Teams Cuff Turner Relationship Specialty Start Date End Date Devin Britt DO [address] [place] [address] PCP - General 04/18/05 09/04/11 Damian Dowell MD [address] [place] [address] PCP - Surgery 05/08/04 03/14/14 Collin Anthony MD [address] [place] [address] PCP - Orthopaedics 01/23/06 02/19/18 Frw, None PCP - General Family Practice 09/05/11 09/18/13 Allison Smyth PCP - General Family Practice 09/19/13 08/27/20 Lyndsey Guzman MD [facility] [address] [place] [address] PCP - General Family Medicine 08/28/20 Carine Smallwood MD [address] [place] [address] Assigned Surgical Provider 09/17/20 Vee Levy PA-C [address] [place] [address] Assigned Surgical Provider 10/29/20 Carine Smallwood MD [address] [place] [address] Assigned Surgical Provider 11/05/20 Vee Levy PA-C [address] [place] [address] Assigned Surgical Provider 12/03/20 Carine Smallwood MD [address] [place] [address] Assigned Surgical Provider 12/31/20 Vee Levy PA-C [address] [place] [address] Assigned Surgical Provider 03/11/21 Carine Smallwood MD [address] [place] [address] Assigned Surgical Provider 02/25/21 Vee Levy PA-C [address] [place] [address] Assigned Surgical Provider 02/11/21 Carine Smallwood MD [address] [place] [address] Assigned Surgical Provider 03/25/2104/14/21 Vee Levy PA-C [address] [place] [address] Assigned Surgical Provider 04/15/2104/21/21 Carine Smallwood MD [address] [place] [address] Assigned Surgical Provider 05/27/2112/14/21 Vee Levy PA-C [address] [place] [address] Assigned Surgical Provider 05/20/2104/04 Carine Smallwood MD [address] [place] [address] Assigned Surgical Provider 04/22/2105/19/21 Vee Levy PA-C [address] [address] Assigned Surgical Provider 12/15/21 documented as of this encounter
--- OUTSIDE RECORDS SUMMARY | 2023-12-10 15:48 | XMS_ITS | Encounter Summary ---
Author Organization [place] Address [address] [place] [address] Care Team Providers Care Concrete Saw Operator Name Role Phone Devin Britt DO Primary Care Provider Urvashi Mccabe MD Primary Care Provider Edwin Rangel MD Primary Care Provider Damian Dowell MD Unavailable [phone] Collin Singh MD Unavailable Unavailable Frw, None Primary Care Provider Unavailabl Allison Porras Primary Care Provider Lyndsey Guzman MD Primary Care Provider Carine Smallwood MD Unavailable [phone] Vee Levy-C Unavailable [phone] Carine Smallwood MD Unavailable [phone] Vee Levy-C Unavailable [phone] Carine Smallwood MD Unavailable [phone] Vee Levy-C Unavailable [phone] Carine Smallwood MD Unavailable [phone] Vee Levy-C Unavailable Carine Smallwood MD Unavailable Vee Levy PA-C Unavailable Carine Smallwood MD Unavailable Vee Levy PA-C Unavailable Carine Smallwood MD Unavailable ScottyVee norris PA-C Unavailable Reason for Visit * Reason Onset Date Comments Pain 05/21/2004 Encounter Details Date Type Department Care Team (Late st Contact Info) Description 05/21/2004 Telephone [facility] [place] Surgery [address] [place] [phone] Damian Dowell MD [address] [place] [address] [id number] Pain Social History Tobacco Use Types Packs/Day [...] med.Suggested to pt to be seen again. 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 documented in this encounter Plan of Treatment Not on file documented as of this encounter Visit Diagnoses Not on filedocumented in this encounter Care Teams Concrete Saw Operator Relationship Specialty Start Date End Date Devin Britt DO [address] [place] [address] PCP - General 04/18/05 09/04/11 Urvashi Mccabe MD [address] [place] [address] PCP - General 11/07/04 04/17/05 Edwin Rangel MD [facility] [address] [place] [address] PCP - General 05/08/04 11/06/04 Damian Dowell MD [address] [place] [address] PCP - Surgery 05/08/04 03/14/14 Collin Singh MD [address] [place] [address] PCP - Orthopaedics 01/23/06 02/19/18 Frw, None PCP - General Family Practice 09/05/11 09/18/13 Allison Smyth PCP - General Family Practice 09/19/13 08/27/20 Lyndsey Guzman MD [facility] [address], [place] [address] PCP - General Family Medicine 08/28/20 Carine Smallwood MD [address] [facility] [address] [place] [address] Assigned Surgical Provider 09/17/20 Vee Levy PA-C [address] [facility] [address] [place] [address] Assigned Surgical Provider 10/29/20 Carine Smallwood MD [address] [place] [address] Assigned Surgical Provider 11/05/20 Vee Levy PA-C [address] [place] [address] Assigned Surgical Provider 12/03/20 Carine Smallwood MD [address] [place] [address] Assigned Surgical Provider 12/31/20 Vee Levy PA-C [address] [place] [address] Assigned Surgical Provider 03/11/21 Carine Smallwood MD [address] [place] [address] Assigned Surgical Provider 02/25/21 Vee Levy PA-C [address] [place] [address] Assigned Surgical Provider 02/11/21 Carine Smallwood MD [address] [place] [address] Assigned Surgical Provider 03/25/2104/14/21 Vee Levy PA-C [address] [place] [address] Assigned Surgical Provider 04/15/2104/21/21 Carine Smallwood MD [address] [place] [address] Assigned Surgical Provider 05/27/2112/14/21 Vee Levy PA-C [address] [place] [address] Assigned Surgical Provider 05/20/2104/04 Carine Smallwood MD [address] [place] [address] Assigned Surgical Provider 04/22/2105/19/21 Vee Levy PA-C [address] [place] [address] Assigned Surgical Provider 12/15/21 documented as of this encounter
--- OUTSIDE RECORDS SUMMARY | 2023-12-10 15:48 | XMS_ITS | Continuity of Care Document ---
Author Organization [facility] Address [address] [place] [address] Phone Care Team Providers Care Automotive Quality Engineer Name Role Phone Johnna CARREON, PhD, Milo Unavailable Unavai lable Procedures Procedure Date Office/Outpatient Visit,[facility] 2023 Advance Directives Directive Yes / No Effective Date File Name No Information Encounters Encounter Description Practice Location Reason(s) For Visit Diagnoses Date Provider Providers Copied on Encounter [facility], [address], [place], [place], [id number], [place] tel:[phone] No Information Johnna Pedraza. [facility], [address], [place], [address], [place]. tel:[phone] Office/Outpat ient Visit,[facility], [address], [place], [place], [id number], [place] tel:[phone] [facility] [place] Low back pain, unspecified Johnna Pedraza. [facility], [address], [place], [address], [place]. tel:[phone] Referring Provider: Preston Li, [facility] [address] [facility] [address], [place], [address]. tel:[phone] Family History Family Member Type Diagnosis Age At Onset No Information Payers Payer name Insurance type Covered alliance party ID Authorjanice bonner(s) [place] Administrators [facility] [id number] [facility] Michael 2021 [id number] Social History Type Description Quantity Date Captured [...]
== END 2023-12-10 15:45 | disposition home or self-care (01) ==
PROVIDERS: PCP Physician Assistant Medical; Visit Provider Physician Assistant Medical
DX: I10 Essential (primary) hypertension (principal); E87.6 Hypokalemia; N39.0 Urinary tract infection, site not specified; I63.9 Cerebral infarction, unspecified; R42 Dizziness and giddiness; N63.0 Unspecified lump in unspecified breast; T81.49XA Infection following a procedure, other surgical site, initial encounter
CPT/HCPCS: 80061; 84145; 86141

== ENCOUNTER 2023-12-12 11:23 | Outpatient (CLI) | payer MEDICAID, SELFPAY ==
--- NOTE | 2023-12-12 11:30 | CRLHL7_ITS ---
For Patients: As a result of the Century Cures Act, medical imaging exams and procedure reports are released immediately into your electronic medical record. You may view this report before your referring provider. If you have questions, please contact your health care provider. Indication: Unspecified lump on left side of breast, infection ?? Implants placed on 11/2023 recent hx of stroke 11/30/2023 Technique: chest with iv contrast Isovue 370 95cc contrast Please note that all CT scans at this facility use dose modulation, iterative reconstruction, and/or weight-based dosing when appropriate to reduce radiation dose to as low as reasonably achievable. Comparison: 02/20/2023 Findings: Interval implant revision compared to the prior study. The right breast implant appears normal. The left breast implant has a somewhat crescent-shaped with convexity at the anterior margin. There is a moderately large amount of fluid present surrounding the left implant measuring up to 8 cm at the lateral margin. A focal area of fluid extends into the lateral soft tissues measuring 2.8 cm likely causing the clinical symptom of lump. There are a few scattered subcentimeter axillary lymph nodes, as before. No enlarged lymph nodes within the mediastinum. Postop changes of left thyroidectomy. Right thyroid lobe remains unremarkable. Fatty liver noted. Gallbladder absent. Scarring is present within both lung apices. No infiltrate, edema, effusion or pneumothorax. Impression: Moderately large amount of fluid surrounds the left breast implant with associated implant distortion. Plastic surgery referral recommended. Please note that all CT scans at this facility use dose modulation, iterative reconstruction, and/or weight-based dosing when appropriate to reduce radiation dose to as low as reasonably achievable. Dictated by Rob Banerjee MD @ 12/12/2023 12:28:52 PM (Electronically Signed)
== END 2023-12-12 11:24 | disposition home or self-care (01) ==
PROVIDERS: PCP Physician Assistant Medical; Visit Provider Physician Assistant Medical
DX: N63.0 Unspecified lump in unspecified breast (principal); T81.49XA Infection following a procedure, other surgical site, initial encounter
CPT/HCPCS: 71260; Q9967

== ENCOUNTER 2023-12-17 10:41 | Emergency (ER) | payer MEDICAID, SELFPAY ==
[2023-12-17 10:48] VITALS: BP 129/87; PULSE 94; RESP 18; TEMP 36.1; O2SAT 98; BMI 27.3
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
--- NOTE | 2023-12-17 11:12 | CRLHL7_ITS ---
For Patients: As a result of the Century Cures Act, medical imaging exams and procedure reports are released immediately into your electronic medical record. You may view this report before your referring provider. If you have questions, please contact your health care provider. Indication: CONSTIPATION. LLQ PAIN Technique: 2 AP views of the abdomen. Comparison: None. Findings: Right upper quadrant abdominal surgical clips. Moderate stool burden in the descending and sigmoid colon and rectum. Nonobstructive bowel gas pattern. No large pneumoperitoneum. Visualized lung bases are clear. Mild degenerative changes of the bilateral hips and visualized spine. Impression: Moderate stool burden in the descending and sigmoid colon and rectum. Nonobstructive bowel gas pattern. Dictated by Mauricio Roca MD @ 12/17/2023 12:12:07 PM (Electronically Signed)
--- OUTSIDE RECORDS SUMMARY | 2023-12-17 11:13 | XMS_ITS | Encounter Summary ---
Author Organization [facility] Address [address] [place] [address] Care Team Providers Care Hand Weaver Name Role Phone Devin Britt DO Primary Care Provider [phone] Urvashi Mccabe MD Primary Care Provider Edwin Rangel MD Primary Care Provider Damian Dowell MD Unavailable Collin Singh MD Unavailable Unavailable Frw, None Primary Care Provider Unavailabl Allison Porras Primary Care Provider Lyndsey Guzman MD Primary Care Provider Carine Smallwood MD Unavailable [phone] Vee Levy-C Unavailable [phone] Carine Smallwood MD Unavailable [phone] Vee Levy-C Unavailable [phone] Carine Smallwood MD Unavailable [phone] Vee Levy-C Unavailable [phone] Carine Smallwood MD Unavailable [phone] Vee Levy-C Unavailable [phone] Carine Smallwood MD Unavailable Vee Levy PA-C Unavailable Carine Smallwood MD Unavailable Vee Levy PA-C Unavailable Carine Smallwood MD Unavailable ScottyVee norris PA-C Unavailable Reason for Visit * Reason Onset Date Comments Pain 05/21/2004 Encounter Details Date Type Department Care Team (Late st Contact Info) Description 05/21/2004 Telephone [facility] [place] [facility] [address] [place] [id number] Damian Dowell MD [address] [place] [id number] Pain Social History Tobacco Use Types Packs/Day [...] med.Suggested to pt to be seen again. [employer] documented in this encounter Plan of Treatment Not on file documented as of this encounter Visit Diagnoses Not on filedocumented in this encounter Care Teams Hand Weaver Relationship Specialty Start Date End Date Devin Britt DO [address] [place] [address] PCP - General 04/18/05 09/04/11 Urvashi Mccabe MD [address] [place] [address] PCP - General 11/07/04 04/17/05 Edwin Rangel MD [facility] [address] [place] [address] PCP - General 05/08/04 11/06/04 Damian Dowell MD [address] [place] [address] PCP - Surgery 05/08/04 03/14/14 Collin Singh MD [address] [place] [address] PCP - Orthopaedics 01/23/06 02/19/18 Frw, None PCP - General Family Practice 09/05/11 09/18/13 Allison Smyth PCP - General Family Practice 09/19/13 08/27/20 Lyndsey Guzman MD [facility] [address], [place] [address] PCP - General Family Medicine 08/28/20 Carine Smallwood MD [address] [facility] [address] [place] [address] Assigned Surgical Provider 09/17/20 Vee Levy PA-C [address] [facility] [address] [place] [address] Assigned Surgical Provider 10/29/20 Carine Smallwood MD [address] [place] [address] Assigned Surgical Provider 11/05/20 Vee Levy PA-C [address] [place] [address] Assigned Surgical Provider 12/03/20 Carine Smallwood MD [address] [place] [address] Assigned Surgical Provider 12/31/20 Vee Levy PA-C [address] [place] [address] Assigned Surgical Provider 03/11/21 Carine Smallwood MD [address] [place] [address] Assigned Surgical Provider 02/25/21 Vee Levy PA-C [address] [place] [address] Assigned Surgical Provider 02/11/21 Carine Smallwood MD [address] [place] [address] Assigned Surgical Provider 03/25/2104/14/21 Vee Levy PA-C [address] [place] [address] Assigned Surgical Provider 04/15/2104/21/21 Carine Smallwood MD [address] [place] [address] Assigned Surgical Provider 05/27/2112/14/21 Vee Levy PA-C [address] [place] [address] Assigned Surgical Provider 05/20/2104/04 Carine Smallwood MD [address] [place] [address] Assigned Surgical Provider 04/22/2105/19/21 Vee Levy PA-C [address] [place] [address] Assigned Surgical Provider 12/15/21 documented as of this encounter
--- OUTSIDE RECORDS SUMMARY | 2023-12-17 11:13 | XMS_ITS | Clinical Summary ---
Author Organization [facility] [employer] [facility] Address [place], [place] [address] Care Team Providers Care Top Knitter Name Role Phone Anthony Christy Yap PT Primary Care Provider [phone] Allergies No known active allergies Medications Medication [...] Description 12/03/2023 9:30 AM CDT Ancillary Procedure [facility] [facility] [address] [place] [address] 12/02/2023 Office Visit [facility] [address] [place] [address] Rajeev Lebron MD Telehealth ([facility] - [facility]) from Last 3 Months Immunizations Name [...] Comments Blood Pressure 117/60 05/24/2015 2:50 PM DIRECTOR INFORMATION SECURITY Pulse 85 05/24/2015 2:50 PM DIRECTOR INFORMATION SECURITY Temperature 36.3 ??C (97.3 ??F) 05/24/2015 1:41 PM CS T Respiratory Rate 16 05/24/2015 2:50 PM DIRECTOR INFORMATION SECURITY Oxygen Saturation 96% 05/24/2015 2:50 PM DIRECTOR INFORMATION SECURITY Inhaled Oxygen Concentration - - Weight 86.5 kg (190 lb 11.2 oz) 016 10:28 AM DIRECTOR INFORMATION SECURITY Height 167.6 cm (5' 5.98) 05/23/2015 8:44 AM CS T Body Mass Index 30.79 05/23/2015 8:44 AM DIRECTOR INFORMATION SECURITY Plan of Treatment Health Maintenance Due Date [...] for age 50+ (1 of 2) 07/13/2019 Pap test for age 21-65 05/31/2023 , 05/31/2020, 04/29/2017, Additional history exists COVID-19 vaccine series (2022- season) 2023 Influenza for age 50-64 12/14/2023 01/15/2011, 04/27 Pneumococcal series for age 6-64 Aged Out No longer eligible based on patient's age to complete this topic Medical Devices Implanted Type Area Foreign Exchange Student Coordinator Device Identifier Shelf Expiration Date Model / Serial / Lot Ancr Sut 2.4x8.5mm Suturetak Micro W/2-0 Fiberwire Ndls Bio - [id number] Implanted:Qty: 1 on 05/24/2015 by Jon Mcpherson MD at [facility] Left: Elbow [employer] 01/11/2017 [id number] CNF # / / [id number] Procedures Procedure Name Priority Date/Time Associated Diagnosis Comments ECHO TTE COMPLETE WO CONTRAST W BUBBLE Routine 12/03/2023 11:23 AM CDT Stroke (cerebrum) (HC) HEALTHCARE RISK CONTROL CONSULTANT THIN PREP PAP SCREEN IMAGED Routine 05/31/2020 2:30 PM DIRECTOR INFORMATION SECURITY LIPID PANEL W REFLEX MEASURED LDL Routine 05/22/2010 10:05 AM DIRECTOR INFORMATION SECURITY Screening for lipoid disorders from Last 3 Months or Most Recently Relevant to Health Maintenance Results * ECHO TTE COMPLETE WO CONTRAST W BUBBLE (12/03/2023 11:23 AM CDT) AORTIC VALVE MEAN PG 6 mmHg EJECTION FRACTION 66 % LVEDD 4.4 cm Anatomical Region Laterality Modality Ultrasound 12/03/2023 10:4 7 AM CDT Narrative 12/03/2023 11:36 AM CDT ECHOCARDIOGRAM RUBY CHRISTIAN ? Accession#: ?? [id number] : ?1970 53 years Study Date: ?? 12/03/2023 10:47:28 AM Gender: F ?BP: ? 106/78 mmHg Height: 168.00 cm ?BSA: ?1.87 m? ? ? Weight: 77.00 kg ? Tech: ? MJW ? Referring MD: ALCIDES LEAL Site: ? [facility] Reading Location: [facility] Patient Location: Outpatient. Procedure: 2D w/ Bubbles, [...] . This study was interpreted by an [facility] accredited facility. CC: Med/Surg - IP [facility] ([facility]) [facility]. ??Final ?? Procedure Note Rob Stephens MD - 12/03/2023 ECHOCARDIOGRAM RUBY CHRISTIAN : 1970 53 years Study Date: 12/03/2023 10:47:28 AM Gender: F BP: 106/78 mmHg Height: 168.00 cm BSA: 1.87 m? ? ? Weight: 77.00 kg Tech: MYLA Referring MD: ALCIDES LEAL Site: [facility] Reading Location: [facility] Patient Location: Outpatient. Procedure: 2D w/ Bubbles, [...] . This study was interpreted by an [facility] accredited facility. CC: Med/Surg - IP [facility] ([facility]) [facility]. Final Alcides Leal MD ECHO ORD * HEALTHCARE RISK CONTROL CONSULTANT THIN PREP PAP SCREEN IMAGED (05/31/2020 2:30 PM DIRECTOR INFORMATION SECURITY) Case Report Gynecologic Cytology Report ? Case: [id number] ? Authorizing Provider: ??Unknown, Doctor ?Collected: ? 05/31/2020 1430 ? Ordering Location: ? [facility] ?Received: ?06/02/2020 0811 ? First Screen: ?Baccam, Minie ? Specimen: ?HEALTHCARE RISK CONTROL CONSULTANT ThinPrep Vial Screening, Cervical/Vaginal ? 06/10/2020 1:27 PM [facility] INTERPRETATION/ RESULT NEGATIVE FOR INTRAEPITHELIAL LESION OR MALIGNANCY (NIL) (none) 06/10/2020 1:27 PM [facility] IMEN ADEQUACY Satisfactory for evaluation Endocervical component present 06/10/2020 1:27 PM [facility] HPV REQUEST HPV and PAP 06/10/2020 1:27 PM [facility] Menstrual Status 06/10/2020 1:27 PM [facility] Comment:Menopause Additional Information 06/10/2020 1:27 PM [facility] Comment: Interpreted at [facility] - [address], [place] [address] Automated Review Successful 06/10/2020 1:27 PM [facility] Comment:Specimen processed s uccessfully by automated shorer device, ThinPrep Imaging System, [employer] ANCILLARY TESTING HEALTHCARE RISK CONTROL CONSULTANT HPV Ordered, Please see separate report 06/10/2020 1:27 PM [facility] Note The pap test is [...] pre-malignant and malignant lesions. 06/10/2020 1:27 PM [facility] Other (Cervical/Vagina l) 05/31/2020 2:30 PM DIRECTOR INFORMATION SECURITY 06/02/2020 8:11 AM DIRECTOR INFORMATION SECURITY Doctor Unknown PATHOLOGY/CYTOLOGY [facility] [address] [place] [address], [place] * (ABNORMAL) LIPID PANEL W REFLEX MEASURED LDL (05/22/2010 10:05 AM DIRECTOR INFORMATION SECURITY) CHOLESTEROL,TOTAL 110 110 - 199 mg/dL [facility] TRIGLYCERIDES 38(L) 40 - 149 mg/dL [facility] HDL CHOLESTEROL 43 >40 mg/dL [facility] CHOL/HDL RATIO 2.56 <4.51 [facility] LDL CHOLESTEROL 59 <131 mg/dL [facility] PATIENT STATUS Fasting [facility] Blood specimen (specimen) BLOOD SPECIMEN / Unknown 05/22/2010 10:05 AM DIRECTOR INFORMATION SECURITY 05/22/2010 9:33 AM DIRECTOR INFORMATION SECURITY Norberto Nicholson MD CHEMISTRY [facility] INTERNAL ZIP [address] [place] [address] from Last 3 Months or Most Recently Relevant to Health Maintenance Advance Directives * Full Code (Latest Code Status on File) Date Activated Date Inactivated Comments 05/24/2015 1:33 PM 05/24/2015 5:10 PM * Full Code Date Activated Date Inactivated Comments 05/24/2015 10:17 AM 05/24/2015 1:33 PM Care Teams Top Knitter Relationship Specialty Start Date End Date Christy Cruz PT [address] [facility] [place] [address] PCP - General Physical Therapist 05/22/15
--- OUTSIDE RECORDS SUMMARY | 2023-12-17 11:13 | XMS_ITS | Continuity of Care Document ---
Author Organization [facility] Address [address] [place] [address] [place] [address] Phone Care Team Providers Care Weld Fitter Name Role Phone Will Celestino MARTINEZ Unavailable [...] tablet - Active Flonase 50 mcg/actuation Nasal Herculaneum - Active dicyclomine 10 mg capsule - Active Procedures Procedure Date OFFICE CONSULTATION Advance Directives Directive Yes / No Effective Date File Name No Information Encounters Encounter Description Practice Location Reason(s) For Visit Diagnoses Date Provider Providers Copied on Encounter [facility], [address] [place] [address], [id number] , [place] tel:[phone] [facility] [place] No Information 2 Will Celestino. [address] [facility] [place], [place], [id number] , [place]. tel:[phone] OFFICE CONSULTATION [facility], [address] [facility] [place], [id number] , [place] tel:[phone] [facility] Molly widespread pain (chief complaint) LumbagoCervicalgiaP ain in joint involving ankle and footMyalgia and myositis, unspecifiedPain in joint involving shoulder regionPain in joint involving pelvic region and thighDepressionHype rtension, Benign 3 Devin Dunnw. [address] [place], [id number] , . tel:[phone] Referring Provider: Celestino Garcia, [address] [place], [address] . tel:[phone] Family History Family Member Type Diagnosis Age [...]
--- OUTSIDE RECORDS SUMMARY | 2023-12-17 11:13 | XMS_ITS | Encounter Summary ---
Author Organization [place] Address [address] [place] [address] Care Team Providers Care Home Care Attendant Name Role Phone Devin Britt DO Primary Care Provider [phone] Damian Dowell MD Unavailable [phone] Collin Anthony MD Unavailable Unavailable Frw, None Primary Care Provider Unavailabl e Allison Smyth Primary Care Provider [phone] Lyndsey Guzman MD Primary Care Provider + [phone] Carine Smallwood MD Unavailable [phone] Vee Levy-C Unavailable [phone] Carine Smallwood MD Unavailable [phone] Vee Levy-C Unavailable [phone] Carine Smallwood MD Unavailable [phone] Vee Levy-C Unavailable [phone] Carine Smallwood MD Unavailable [phone] Vee Levy-C Unavailable [phone] Carine Smallwood MD Unavailable [phone] Vee Levy-C Unavailable [phone] Carine Smallwood MD Unavailable [phone] Vee Levy PA-C Unavailable [phone] Carine Smallwood MD Unavailable [phone] Vee Levy PA-C Unavailable [phone] Reason for Visit * Reason Onset Date Comments Refill Request 03/07/2006 zaida fine Encounter Details Date Type Department Care Team (Late st Contact Info) Description 03/07/2006 Refill [facility] [address] [place] [address] Collin Anthony MD Refill Request (zaida [...] FAX it directly to the pharmacy. [facility] documented in this encounter Plan of Treatment Not on file documented as of this encounter Visit Diagnoses Not on filedocumented in this encounter Care Teams Home Care Attendant Relationship Specialty Start Date End Date Devin Britt DO [address] [place] [address] PCP - General 04/18/05 09/04/11 Damian Dwoell MD [address] [place] [address] PCP - Surgery 05/08/04 03/14/14 Collin Anthony MD [address] [place] [address] PCP - Orthopaedics 01/23/06 02/19/18 Frw, None PCP - General Family Practice 09/05/11 09/18/13 Allison Smyth PCP - General Family Practice 09/19/13 08/27/20 Lyndsey Guzman MD [facility] [address] [place] [address] PCP - General Family Medicine 08/28/20 Carine Smallwood MD [address] [place] [address] Assigned Surgical Provider 09/17/20 Vee Levy PA-C [address] [place] [address] Assigned Surgical Provider 10/29/20 Carine Smallwood MD [address] [place] [address] Assigned Surgical Provider 11/05/20 Vee Levy PA-C [address] [place] [address] Assigned Surgical Provider 12/03/20 Carine Smallwood MD [address] [place] [address] Assigned Surgical Provider 12/31/20 Vee Levy PA-C [address] [place] [address] Assigned Surgical Provider 03/11/21 Carine Smallwood MD [address] [place] [address] Assigned Surgical Provider 02/25/21 Vee Levy PA-C [address] [place] [address] Assigned Surgical Provider 02/11/21 Carine Smallwood MD [address] [place] [address] Assigned Surgical Provider 03/25/2104/14/21 Vee Levy PA-C [address] [place] [address] Assigned Surgical Provider 04/15/2104/21/21 Carine Smallwood MD [address] [place] [address] Assigned Surgical Provider 05/27/2112/14/21 Vee Levy PA-C [address] [place] [address] Assigned Surgical Provider 05/20/2104/04 Carine Smallwood MD [address] [place] [address] Assigned Surgical Provider 04/22/2105/19/21 Vee Levy PA-C [address] [address] Assigned Surgical Provider 12/15/21 documented as of this encounter
--- OUTSIDE RECORDS SUMMARY | 2023-12-17 11:13 | XMS_ITS | Referral Summary ---
Author Organization [place] Address [address] [place] [address] Care Team Providers Care Forestry Fire Aid Name Role Phone Lyndsey Guzman MD Primary Care Provider [phone] Allergies Active Allergy Reactions Criticality Noted Date [...] Overview: Added automatically from request for surgery [id number] Tear of medial cartilage or meniscus of [...] A.M.A. LIPID PANEL Routine 04/25/2005 4:53 PM SENIOR ANIMAL TRAINER Herpes Simplex Nos Acne Nec HCL PAP THIN LAYER SCREEN Routine 04/25/2005 12:00 AM SENIOR ANIMAL TRAINER Routine Medical Exam C MAMMOGRAM, SCREENING Routine 05/02/2004 Symptoms In Breast Nec Dysuria from Last 3 Months or Most Recently Relevant to Health Maintenance Results * (ABNORMAL) Glucose by meter (10/10/2020 5:29 AM CDT) Glucose 128(H) 70 - 99 mg/dL 10/10/2020 5:35 AM CDT POINT OF CARE TEST, GLUCOSE 10/10/2020 5:29 AM CDT 10/10/2020 5:35 AM CDT Carine Smallwood MD LAB - [facility] POCT POINT OF CARE TEST, GLUCOSE [...] correlate. ALTHEA NINO MD Pauline Ryan MD [facility] ORDERABLES * COLONOSCOPY (08/30/2005) Devin Lopez DO PROCEDURES Performing Organization Address [facility] de Phone Number [facility] [address] * (ABNORMAL) A.M.A. LIPID PANEL (04/25/2005 4:53 PM SENIOR ANIMAL TRAINER) Cholesterol 180 0 - 200 mg/dL [facility] Comment: LDL Cholesterol is the primary guide to therapy: LDL-cholesterol goal in high risk patients is <100 mg/dL and in very high risk patients is <70 mg/dL. The NCEP recommends further evaluation of: patients with cholesterol <200 mg/dL if additional risk factors are present, cholesterol >240 mg/dL, triglycerides >150 mg/dL, or HDL <40 mg/dL. Triglycerides 190(H) 0 - 150 mg/dL [facility] HDL Cholesterol 35(L) 50 - 110 mg/dL [facility] LDL Cholesterol Calculated 107 0 - 129 mg/dL [facility] Comment: LDL Cholesterol is the primary guide to therapy: LDL-cholesterol goal in high risk patients is <100 mg/dL and in very high risk patients is <70 mg/dL. VLDL-Cholesterol 38(H) 0 - 30 mg/dL [facility] Cholesterol/HDL Ratio 5.1(H) 0.0 - 5.0 [facility] 04/25/2005 4:53 PM SENIOR ANIMAL TRAINER 04/25/2005 5:03 PM SENIOR ANIMAL TRAINER Devin Lopez DO LABORATORY Performing Organization Address [facility] Co de Phone Number [facility] [address] * A THIN LAYER PAP SCREEN (04/25/2005 12:00 AM SENIOR ANIMAL TRAINER) PAP JITENDRA Bolden Report Patient Name: RUBY CHRISTIAN MR#: [id number] Specimen #: [id number] Collected: 04/25/2005 Received: 04/28/2005 Reported: 05/01/2005 10:12 [...] at [facility], screened at [facility] CLINICAL HISTORY: LMP: no lmp recorded Previous normal pap: 05-02-04, TESTING LAB LOCATION: [address] [address] COLLECTION SITE: Client: ??[facility] Location: [facility] 04/25/2005 04/28/2005 8:0 1 AM SENIOR ANIMAL TRAINER Devin Lopez DO LABORATORY COPATH * MAMMOGRAM, SCREENING (05/02/2004) MAMMOGRAM CAT 2 [facility] Anatomical Region Laterality Modality Other Narrative [...] been sent to the patient. Norberto Lynch M.D./svia D: 05-08-04 T: 05-09-04 Edwin Rangel MD SPECIAL IMAGING STUD IES from Last 3 Months or Most Recently Relevant to Health Maintenance Advance Directives For more information, please contact: [phone] * Full Code (Latest Code Status on File) Date Activated Date Inactivated Comments 10/09/2020 2:28 PM 10/10/2020 1:54 PM All basic an d advanced life-sustaining interventions are performed as appropriate Post op Question Answer Comments Code status determined by: Other (please documen t) Care Teams Forestry Fire Aid Relationship Specialty Start Date End Date Lyndsey Guzman MD [facility] [address], [place] [address] PCP - General Family Medicine 08/28/20
--- OUTSIDE RECORDS SUMMARY | 2023-12-17 11:13 | XMS_ITS | Continuity of Care Document ---
Author Organization [facility] Address [address] [place] [address] Phone Care Team Providers Care Shaker Screen Operator Name Role Phone Johnna CARREON, PhD, Milo Unavailable Unavai lable Procedures Procedure Date Office/Outpatient Visit,[facility] 2023 Advance Directives Directive Yes / No Effective Date File Name No Information Encounters Encounter Description Practice Location Reason(s) For Visit Diagnoses Date Provider Providers Copied on Encounter [facility], [address], [place], [place], [id number], [place] tel:[phone] No Information Johnna Pedraza. [facility] [place], [address], [place], [address], [place]. tel:[phone] Office/Outpat ient Visit,[facility], [address], [place], [place], [id number], [place] tel:[phone] [facility] [place] Low back pain, unspecified Johnna Pedraza. [facility] [place], [address], [place], [address], [place]. tel:[phone] Referring Provider: Preston Li, [facility] [address] [facility] [address], [place], [address]. tel:[phone] Family History Family Member Type Diagnosis Age At Onset No Information Payers Payer name Insurance type Covered constitution party ID Authorjanice bonner(s) [employer] [facility] [id number] [facility] Michael 2021 [id number] Social History Type Description Quantity Date Captured [...]
--- OUTSIDE RECORDS SUMMARY | 2023-12-17 11:13 | XMS_ITS | Encounter Summary ---
Author Organization [facility] Address [address] [place] [address] Care Team Providers Care Recovery Operator Name Role Phone Devin Britt DO Primary Care Provider [phone] Damian Dowell MD Unavailable [phone] Collin Singh MD Unavailable Unavailable Frw, None Primary Care Provider Unavailabl e Allison Smyth Primary Care Provider [phone] Lyndsey Guzman MD Primary Care Provider + [phone] Carine Smallwood MD Unavailable [phone] Vee Levy-C Unavailable [phone] Carine Smallwood MD Unavailable [phone] Vee Levy-C Unavailable [phone] Carine Smallwood MD Unavailable [phone] Vee Levy-C Unavailable [phone] Carine Smallwood MD Unavailable [phone] Vee Levy-C Unavailable [phone] Carine Smallwood MD Unavailable [phone] Vee Levy-C Unavailable [phone] Carine Smallwood MD Unavailable [phone] Vee Levy PA-C Unavailable [phone] Carine Smallwood MD Unavailable [phone] Vee Levy PA-C Unavailable Encounter Details Date Type Department Care Team (Late st Contact Info) Description 05/06/2005 [facility] [place] Inpatient Dept [address] [place] [address] Frw, Inpatient Provider Social History [...] without complications. Bernardino Key M.D. Fadia cc: UTER OPERATOR documented in this encounter Plan of Treatment Not on file documented as of this encounter Visit Diagnoses Not on filedocumented in this encounter Care Teams Recovery Operator Relationship Specialty Start Date End Date Devin Britt DO [address] [place] [address] PCP - General 04/18/05 09/04/11 Damian Dowell MD [address] [place] [address] PCP - Surgery 05/08/04 03/14/14 Collin Singh MD [address] [place] [address] PCP - Orthopaedics 01/23/06 02/19/18 Frw, None PCP - General Family Practice 09/05/11 09/18/13 Allison Smyth PCP - General Family Practice 09/19/13 08/27/20 Lyndsey Guzman MD [facility] [address] [place] [address] PCP - General Family Medicine 08/28/20 Carine Smallwood MD [address] [place] [address] Assigned Surgical Provider 09/17/20 Vee Levy PA-C [address] [place] [address] Assigned Surgical Provider 10/29/20 Carine Smallwood MD [address] [place] [address] Assigned Surgical Provider 11/05/20 Vee Levy PA-C [address] [place] [address] Assigned Surgical Provider 12/03/20 Carine Smallwood MD [address] [place] [address] Assigned Surgical Provider 12/31/20 Vee Levy PA-C [address] [place] [address] Assigned Surgical Provider 03/11/21 Carine Smallwood MD [address] [place] [address] Assigned Surgical Provider 02/25/21 Vee Levy PA-C [address] [place] [address] Assigned Surgical Provider 02/11/21 Carine Smallwood MD [address] [place] [address] Assigned Surgical Provider 03/25/2104/14/21 Vee Levy PA-C [address] [place] [address] Assigned Surgical Provider 04/15/2104/21/21 Carine Smallwood MD [address] [place] [address] Assigned Surgical Provider 05/27/2112/14/21 Vee Levy PA-C [address] [place] [address] Assigned Surgical Provider 05/20/2104/04 Carine Smallwood MD [address] [place] [address] Assigned Surgical Provider 04/22/2105/19/21 Vee Levy PA-C [address] [place] [address] Assigned Surgical Provider 12/15/21 documented as of this encounter
--- OUTSIDE RECORDS SUMMARY | 2023-12-17 11:13 | XMS_ITS | Encounter Summary ---
Author Organization [place] Address [address] [place] [address] Care Team Providers Care Screedman Name Role Phone Devin Britt DO Primary Care Provider [phone] Damian Dowell MD Unavailable [phone] Collin Singh MD Unavailable Unavailable Frw, None Primary Care Provider Unavailabl e Allison Smyth Primary Care Provider [phone] Lydnsey Guzman MD Primary Care Provider + [phone] Carine Smallwood MD Unavailable [phone] Vee Levy-C Unavailable [phone] Carine Smallwood MD Unavailable [phone] Vee Levy-C Unavailable [phone] Carine Smallwood MD Unavailable [phone] Vee Levy-C Unavailable [phone] Carine Smallwood MD Unavailable [phone] Vee Levy-C Unavailable [phone] Carine Smallwood MD Unavailable [phone] Vee Levy-C Unavailable [phone] Carine Smallwood MD Unavailable [phone] Vee Levy PA-C Unavailable Carine Smallwood MD Unavailable Vee Levy PA-C Unavailable Reason for Visit * Reason Onset Date Comments Refill Request 05/30/2006 Francisco/zaida Encounter Details Date Type Department Care Team (Late st Contact Info) Description 05/30/2006 Refill [facility] [address] [place] [address] Collin Singh MD Refill Request [...] as [facility] and hasn't been able to make other appts and currently has no appt made. CHUTE PANEL JOINER documented in this encounter Plan of Treatment Not on file documented as of this encounter Visit Diagnoses Not on filedocumented in this encounter Care Teams Screedman Relationship Specialty Start Date End Date Devin Britt DO [address] [place] [address] PCP - General 04/18/05 09/04/11 Damian Dowell MD [address] [place] [address] PCP - Surgery 05/08/04 03/14/14 Collin Singh MD [address] [place] [address] PCP - Orthopaedics 01/23/06 02/19/18 Frw, None PCP - General Family Practice 09/05/11 09/18/13 Libra Sabihalatisha PCP - General Family Practice 09/19/13 08/27/20 Lyndsey Guzman MD [facility] [address], [place] [address] PCP - General Family Medicine 08/28/20 Carine Smallwood MD [address] [place] [address] Assigned Surgical Provider 09/17/20 Vee Levy PA-C [address] [place] [address] Assigned Surgical Provider 10/29/20 Carine Smallwood MD [address] [place] [address] Assigned Surgical Provider 11/05/20 Vee Levy PA-C [address] [place] [address] Assigned Surgical Provider 12/03/20 Carine Smallwood MD [address] [place] [address] Assigned Surgical Provider 12/31/20 eVe Levy PA-C [address] [place] [address] Assigned Surgical Provider 03/11/21 Carine Smallwood MD [address] [place] [address] Assigned Surgical Provider 02/25/21 Vee Levy PA-C [address] [place] [address] Assigned Surgical Provider 02/11/21 Carine Smallwood MD [address] [place] [address] Assigned Surgical Provider 03/25/2104/14/21 Vee Levy PA-C [address] [place] [address] Assigned Surgical Provider 04/15/2104/21/21 Carine Smallwood MD [address] [place] [address] Assigned Surgical Provider 05/27/2112/14/21 Vee Levy PA-C [address] [place] [address] Assigned Surgical Provider 05/20/2104/04 Carine Smallwood MD [address] [facility] [address] [place] [address] Assigned Surgical Provider 04/22/2105/19/21 Vee Levy PA-C [address] [facility] [address] [place], [place] [address] Assigned Surgical Provider 12/15/21 documented as of this encounter
--- OUTSIDE RECORDS SUMMARY | 2023-12-17 11:13 | XMS_ITS | Clinical Summary ---
Author Organization [place] Address [address] [place] [address] Care Team Providers Care Medical Laboratory Specialist Name Role Phone Lyndsey Guzman MD Primary Care Provider [phone] Allergies Active Allergy Reactions Criticality Noted Date [...] Overview: Added automatically from request for surgery [id number] Tear of medial cartilage or meniscus of [...] A.M.A. LIPID PANEL Routine 04/25/2005 4:53 PM FILLER SIFTER MACHINE Herpes Simplex Nos Acne Nec HCL PAP THIN LAYER SCREEN Routine 04/25/2005 12:00 AM FILLER SIFTER MACHINE Routine Medical Exam C MAMMOGRAM, SCREENING Routine 05/02/2004 Symptoms In Breast Nec Dysuria from Last 3 Months or Most Recently Relevant to Health Maintenance Results * (ABNORMAL) Glucose by meter (10/10/2020 5:29 AM CDT) Glucose 128(H) 70 - 99 mg/dL 10/10/2020 5:35 AM CDT POINT OF CARE TEST, GLUCOSE 10/10/2020 5:29 AM CDT 10/10/2020 5:35 AM CDT Carine Smallwood MD [facility] POCT POINT OF CARE TEST, GLUCOSE * [...] correlate. ALTHEA NINO MD Pauline Ryan MD [facility] CT ORDERABLES * COLONOSCOPY (08/30/2005) Devin Lopez DO PROCEDURES [facility] [address] * (ABNORMAL) A.M.A. LIPID PANEL (04/25/2005 4:53 PM FILLER SIFTER MACHINE) Cholesterol 180 0 - 200 mg/dL [facility] Comment: LDL Cholesterol is the primary guide to therapy: LDL-cholesterol goal in high risk patients is <100 mg/dL and in very high risk patients is <70 mg/dL. The NCEP recommends further evaluation of: patients with cholesterol <200 mg/dL if additional risk factors are present, cholesterol >240 mg/dL, triglycerides >150 mg/dL, or HDL <40 mg/dL. Triglycerides 190(H) 0 - 150 mg/dL [facility] HDL Cholesterol 35(L) 50 - 110 mg/dL [facility] LDL Cholesterol Calculated 107 0 - 129 mg/dL [facility] Comment: LDL Cholesterol is the primary guide to therapy: LDL-cholesterol goal in high risk patients is <100 mg/dL and in very high risk patients is <70 mg/dL. VLDL-Cholesterol 38(H) 0 - 30 mg/dL [facility] Cholesterol/HDL Ratio 5.1(H) 0.0 - 5.0 [facility] 04/25/2005 4:53 PM FILLER SIFTER MACHINE 04/25/2005 5:03 PM FILLER SIFTER MACHINE Devin Lopez DO LABORATORY [facility] [address] * A THIN LAYER PAP SCREEN (04/25/2005 12:00 AM FILLER SIFTER MACHINE) PAP JITENDRA Bolden Report Patient Name: RUBY CHRISTIAN MR#: [id number] Specimen #: [id number] Collected: 04/25/2005 Received: 04/28/2005 Reported: 05/01/2005 10:12 Ordering Phy(s): DEVIN LOPEZ SPECIMEN/STAIN PROCESS: Pap thin layer prep screening (SurePath) ? Pap-Cyto x 1, Reflex HPV x 1 SOURCE: Cervical, endocervical Pap thin layer prep screening (SurePath) SPECIMEN ADEQUACY: Satisfactory for evaluation. -Transitional zone component present. CYTOLOGIC INTERPRETATION: Negative for Intraepithelial Lesion or Malignancy Electronically signed out by: ALANNA Booth (ASCP) Processed at [facility], screened at [facility] CLINICAL HISTORY: LMP: no lmp recorded Previous normal pap: 05-02-04, TESTING LAB LOCATION: [address] [place] [address] COLLECTION SITE: Client: ??[facility] Location: [facility] (W) [facility] 04/25/2005 04/28/2005 8:0 1 AM FILLER SIFTER MACHINE eDvin Lopez DO LABORATORY [facility] * MAMMOGRAM, SCREENING (05/02/2004) MAMMOGRAM CAT 2 [facility] Anatomical Region Laterality Modality [...] Advance Directives For more information, please contact: [phone] * Full Code (Latest Code Status on File) Date Activated Date Inactivated Comments 10/09/2020 2:28 PM 10/10/2020 1:54 PM All basic an d advanced life-sustaining interventions are performed as appropriate Post op Question Answer Comments Code status determined by: Other (please linda t) Care Teams Medical Laboratory Specialist Relationship Specialty Start Date End Date Lyndsey Guzman MD [facility] [address] [place] [address] PCP - General Family Medicine 08/28/20
--- OUTSIDE RECORDS SUMMARY | 2023-12-17 11:14 | XMS_ITS | Data Portability ---
Author Organization [facility], [facility] Address [address] [facility] [place] [address] Care Team Providers Care Shopping Investigator Name Role Phone WOLF BANSAL Primary Care Provider Assessment No assessment recorded. Plan of Treatment Reminders Order Date Submit Date Provider Last Modified By Organization Details Last Modified Time Details Appointments None recorded. Lab urinalysi s, dipstick 2021 022 abajema [facility], [address], [place], [address], 2 12:42:04 urinalysi s, dipstick 2022 023 lsitnikova [facility], [address], [place], [address], 3 12:28:23 Referral physical therapist referral - referral for stress incontine ce 2021 022 clif Olmos, [address] [facility], [place], [address], 2 08:23:08 physical therapist referral 2022 023 clif Olmos, [address] [place], [address], 3 07:32:43 Procedures None recorded. Surgeries None recorded. Imaging CT, abdomen + pelvis, w/ contrast - Urogram phase 2021 022 [facility], [address], [place], [address], 2 17:33:27 Medication Orders trospium 20 mg tablet 2022 023 brit [id number], [address] [facility], [place], [place], [id number], 3 12:28:23 Patient TargetsNo targets recorded. Patient InstructionsNo instructions recorded. Reason for Referral Physical Therapist Referral for Genuine stress incontinence stress incontinece referral for stress incontinece Referring Physician: [facility], Encounter Date: 01/01/2022 Physical Therapist Referral for Microscopic hematuria Referring Physician: [facility], Encounter Date: 06/25/2022 Results Created Date Observation Date Name Description Value Unit Range Abnormal Flag Note LastModifiedBy Organization Detail LastModifiedTime 01/02/20 22 01/01/2022 urina lysis , dipst ick Color-Status Yellow Not Available [facility] [address], [place], [address], 01/01/2022 11:52:48 01/02/20 22 01/01/2022 urina lysis , dipst ick Clarity-Stat us Clear Not Available [facility] [address], [place], [address], 01/01/2022 11:52:48 01/02/20 22 01/01/2022 urina lysis , dipst ick Glucose-Stat us Negati ve Not Available [facility] [address], [place], [address], 01/01/2022 11:52:48 01/02/20 22 01/01/2022 urina lysis , dipst ick Bilirubin-St atus Negati ve Not Available [facility] [address], [place], [address], 01/01/2022 11:52:48 01/02/20 22 01/01/2022 urina lysis , dipst ick Ketones-Stat us Negati ve Not Available [facility] [address], [place], [address], 01/01/2022 11:52:48 01/02/20 22 01/01/2022 urina lysis , dipst ick Sp Prospect-Stat us 1.020 Not Available [facility] [address], [place], [address], 01/01/2022 11:52:48 01/02/20 22 01/01/2022 urina lysis , dipst ick pH-Status 5.5 Not Available [facility] [address], [place], [address], 01/01/2022 11:52:48 01/02/20 22 01/01/2022 urina lysis , dipst ick Urobilinogen -Status 0.2 Not Available [facility] [address], [place], [address], 01/01/2022 11:52:48 01/02/20 22 01/01/2022 urina lysis , dipst ick Nitrates-Sta tus negati ve Not Available [facility] [address], [place], [address], 01/01/2022 11:52:48 01/02/20 22 01/01/2022 urina lysis , dipst ick Blood-Status Negati ve Not Available [facility] [address], [place], [address], 01/01/2022 11:52:48 01/02/20 22 01/01/2022 urina lysis , dipst ick Leuko-Status Negati ve Not Available [facility] [address], [place], [address], 01/01/2022 11:52:48 01/02/20 22 01/01/2022 urina lysis , dipst ick Specimen Type Voided Not Available [facility] [address], [place], [address], 01/01/2022 11:52:48 01/02/20 22 01/01/2022 urina lysis , dipst ick Performed by Wolf Frey RN Not Available [facility] [address], [place], [address], 01/01/2022 11:52:48 01/02/20 22 01/01/2022 urina lysis , dipst ick Total Urine Volume 20cc Not Available [facility] [address], [place], [address], 01/01/2022 11:52:48 06/26/19 23 06/25/2022 urina lysis , dipst ick Color-Status Yellow Not Available [facility] [address], [place], [address], 06/25/2022 12:08:56 06/26/19 23 06/25/2022 urina lysis , dipst ick Clarity-Stat us Clear Not Available [facility] [address], [place], [address], 06/25/2022 12:08:56 06/26/19 23 06/25/2022 urina lysis , dipst ick Glucose-Stat us Negati ve Not Available [facility] [address], [place], [address], 06/25/2022 12:08:56 06/26/19 23 06/25/2022 urina lysis , dipst ick Bilirubin-St atus Negati ve Not Available [facility] [address], [place], [address], 06/25/2022 12:08:56 06/26/19 23 06/25/2022 urina lysis , dipst ick Ketones-Stat us Negati ve Not Available [facility] [address], [place], [address], 06/25/2022 12:08:56 06/26/19 23 06/25/2022 urina lysis , dipst ick Sp Prospect-Stat us 1.010 Not Available [facility] [address], [place], [address], 06/25/2022 12:08:56 06/26/19 23 06/25/2022 urina lysis , dipst ick pH-Status 5.5 Not Available [facility] [address], [place], [address], 06/25/2022 12:08:56 06/26/19 23 06/25/2022 urina lysis , dipst ick Urobilinogen -Status 0.2 Not Available [facility] [address], [place], [address], 06/25/2022 12:08:56 06/26/19 23 06/25/2022 urina lysis , dipst ick Nitrates-Sta tus negati ve Not Available [facility] [address], [place], [address], 06/25/2022 12:08:56 06/26/19 23 06/25/2022 urina lysis , dipst ick Blood-Status Negati ve Not Available [facility] [address], [place], [address], 06/25/2022 12:08:56 06/26/19 23 06/25/2022 urina lysis , dipst ick Leuko-Status Negati ve Not Available [facility] [address], [place], [address], 06/25/2022 12:08:56 06/26/19 23 06/25/2022 urina lysis , dipst ick Specimen Type Voided Not Available [facility] [address], [place], [address], 06/25/2022 12:08:56 01/08/20 22 01/01/2022 bladd er scan (PROC ) No observ ation record ed. BARCODE Not Available 2021 09:07:18 06/21/19 23 06/18/2022 CT ABD wo&W & pelv wo&W (no oral cont) No observ ation record ed. [email or web address] [facility] [address] [facility] [address], [place], [address], 07/01/2022 10:45:14 Result Notes None recorded. Problems Name Problem SNOMED Code Status Onset Date Resolution Date Notes Provider Name and Address Organization Details Recorded Time Microscop ic hematuria 906045345 Active 2016 R31.29 : Other microscopi c hematuria Not Available [facility] 02:03:03 Problem Notes None recorded. Procedures Surgical History Date Name Laterality Status Provider Name and Address Organization Details Recorded Time 06/26/19 23 Bladder Scan completed Siobhan reyes, [facility] 06/25/2022 12:17:55 01/02/20 22 CystoscopyFemale completed Bala Desai PA-C [address] [facility],[address], [place], [address], [facility] 01/01/2022 12:36:16 01/02/20 22 Bladder Scan completed Wolf reyes [facility] 01/01/2022 11:52:43 Orthopedic Surgery completed Wolf reyes [facility] 01/01/2022 11:49:26 [facility] 01/01/2022 11:49:38 thyroidectomy completed Wolf reyes [facility] 01/01/2022 11:49:45 Imaging Results Imaging Date Name Status LastModified by Organiz ation Details LastModified Time 01/01/2022 bladder scan (PROC) completed BARCODE Information not available 01/07/2022 09:07:18 06/18/2022 CT ABD wo&W & pelv wo&W (no oral cont) completed [email or web address] [facility] [address], [place], [address], 07/01/2022 10:45:14 Procedure Notes None recorded. Medical Equipment None Reported. Allergies Allergen ID Allergen Name Allergen Category Reaction Reaction Severity Criticality Documentation Date Start Date Code Code System Note Provider Name and Address Organization Details Recorded Time 113019 adhesive tape environme nt,medica tion Not available Not available Not available 01/01/2022 Wolf reyes [facility] 2 11:46:01 504743 nickel environme nt Not available Not available Not available 01/01/2022 00800 29 RxNorm Wolf reyes [facility] 2 11:46:05 Medications Name Sig Start [...] Updated DateTime 01/01/2022 168.91 cm 28.8 kg/m2 17014.22 g Wolf Frey [place] [facility] 01/01/2022 11:45:40 Date Recorded Body height Body mass index (BMI) Body weight Provider Name and Address Organization Details Last Updated DateTime 06/25/2022 168.91 cm 28.8 kg/m2 66175.22 g Ciara Ross [facility] 06/25/2022 12:08:29 Social History Question Answer Notes LastModified by Organizat ion Details LastModified Time Tobacco Smoking Status Current Every Day Smoker Wolf Frey eric [facility] 01/01/2022 11:48:59 What Is Your Level Of Alcohol Consumption? None [email or web address] Information not available 01/01/2022 What Is Your Level Of Caffeine Consumption? Heavy [email or web address] Information not available 01/01/2022 What Was The Date Of Your Most Recent Tobacco Screening? 06/25/2022 Information not available 06/25/2022 How Much Tobacco Do You Smoke? 1 PPD [email or web address] Information not available 01/01/2022 Do You Use [...] High Blood Pressure Y Kidney Stones Y Depression N Lung Disease N GERD/Acid Reflux Y Sexually Transmitted Infection N Cancer Y High Cholesterol N Diabetes Y Bleeding Disorder N Heart Disease N Gynecological History Statement/Question Response If Post Menopausal, Age at Menopause 51 Sexually Active? Y Obstetrics History GPAL:G 0 P 0 0 0 0 Immunizations Vaccine Type Date Status Provider Name and Address Organization Details Recorded Time Influenza, injectable,quadriva lent, preservative free, pediatric 02/17/2013 completed Korin reyes [facility] 04/09/2023 14:12:24 Influenza, recombinant, quadrivalent, PF 05/31/2020 nayely reyes [facility] 04/09/2023 14:12:24 Influenza, recombinant, quadrivalent, PF 02/01/2021 completed Korin Allar null, [facility] 04/09/2023 14:12:24 Influenza, recombinant, quadrivalent, PF 03/18/2019 completed Korin Allar null, [facility] 04/09/2023 14:12:24 zoster recombinant 05/31/2020 completed Korin Al lar null, [facility] 04/09/2023 14:12:24 zoster recombinant 02/01/2021 completed Korin Al lar null, [facility] 04/09/2023 14:12:24 Tdap 10/02/2011 completed Korin Allar null, [facility] 04/09/2023 14:12:24 Influenza, split virus, trivalent, preservative 04/27/2010 completed Korin Allar null, [facility] 04/09/2023 14:12:24 Influenza, split virus, trivalent, PF 01/15/2011 completed Korin Allar null, [facility] 04/09/2023 14:12:24 Td (adult), 2 Lf tetanus toxoid, preservative free, adsorbed 05/23/2021 completed Korin Allar null, [facility] 04/09/2023 14:12:24 Td (adult), 2 Lf tetanus toxoid, preservative free, adsorbed 05/28/2001 completed Korin Allar null, [facility] 04/09/2023 14:12:24 Hep B, adult 01/11/2020 completed Korin Allar null, [facility] 04/09/2023 14:12:24 Influenza, split virus, quadrivalent, PF 01/30/2018 completed Korin Allar null, [facility] 04/09/2023 14:12:24 Influenza, split virus, quadrivalent, PF 03/23/2014 completed Korin Allar null, [facility] 04/09/2023 14:12:24 Past Encounters Encounter ID Performer Location Encounter Start Date Encounter Closed Date Diagnosis/Indication Diagnosis SNOMED-CT Code Diagnosis ICD10 Code [id number] Flavio Morales MD [facility] [address] [place] [address] 01/01/2022 11:10:54 01/04/2022 16:59:32 Microscopic hematuria 436951948 R31.[address] ress incontinence 82954570 N39.3 Overactive urinary bladder 469593101 N32.81 [id number] Flavio Morales MD [facility] [address] [place] [address] 06/25/2022 12:03:25 06/26/2022 13:47:53 Overactive urinary bladder 387463436 N32.81 Microscopic hematuria 19 8330984 R31.29 Female str ess incontinence 15134553 N39.3 Health Concerns Section Related Observation LastModified by Organization Detai ls LastModified Time None Recorded Concern Status LastModified by Organization Details LastModified Time None Recorded Advance Directives Directive None Recorded Payers Encounter Date Sequence Insurance Name Policy Number Policy Bonilla Covered Member ID Bonilla Member ID Guarantor Name 01/01/2022 1 [employer] - INDIVIDUAL AND FAMILY ([facility]) [id number] 1 Aileen L Nathalia [id number] Aileen L Nathalia 06/25/2022 1 [employer] - IN[employer] FAMILY ([facility]) [id number] 1 Aileen L Nathalia [id number] Aileen L Nathalia Notes Date Note Type Note Provider [...] have positive stress test Flavio Morales MD [address] [place] [address],[address], [place], [address], [facility] 01/03/2022 17:56:51 06/25/2022 text/html HPI Notes: [...] stones -HTN, -asthma -IBS Flavio Morales MD [address] [place] [address],[address], [place], [address], [facility] 06/25/2022 12:28:57 OBGyn Episode No OBEpisode recorded.
[2023-12-17] MEDS: MAGNESIUM CITRATE 300 ML SOLUTION PO (12:36)
[2023-12-17] MEDS: SENNOSIDES/DOCUSATE TABLET 2 TAB PO (13:12)
[2023-12-17] MEDS: DOC/MIN OIL/MAG CIT/SOD PHOS 376 ML ENEMA PR (13:13)
[2023-12-17] MEDS: polyethylene glycoL 3350 17 GM PACK 34 GM PO (13:13)
== END 2023-12-17 13:52 | disposition home or self-care (01) ==
PROVIDERS: Emergency Provider Family Medicine; PCP Physician Assistant Medical
DX: K59.00 Constipation, unspecified (principal)
CPT/HCPCS: 74019; 99283; 99284; A9270

== ENCOUNTER 2024-01-14 11:57 | Outpatient (CLI) | payer MEDICAID, SELFPAY ==
--- OUTSIDE RECORDS SUMMARY | 2024-01-14 12:00 | XMS_ITS | Continuity of Care Document ---
Author Organization [facility] Address [address] [place] [address] Phone Care Team Providers Care Data Collection Interviewer Name Role Phone Johnna CARREON, PhD, Milo Unavailable Unavai lable Procedures Procedure Date Office/Outpatient Visit,[facility] 2023 Advance Directives Directive Yes / No Effective Date File Name No Information Encounters Encounter Description Practice Location Reason(s) For Visit Diagnoses Date Provider Providers Copied on Encounter [facility], [address], [place], [place], [id number], [place] tel:[phone] No Information Johnna Pedraza. [facility] [place], [address], [place], [address], [place]. tel:[phone] Office/Outpat ient Visit,[facility], [address], [place], [place], [id number], [place] tel:[phone] [facility] Low back pain, unspecified Johnna Pedraza. [facility] [place], [address], [place], [address], [place]. tel:[phone] Referring Provider: Preston Li, [facility] [address] [facility] [address], [place], [address]. tel:[phone] Family History Family Member Type Diagnosis Age At Onset No Information Payers Payer name Insurance type Covered republican ID Authorjanice bonner(s) Holman Administrators [facility] [id number] [facility] 2021 [id number] Social History Type Description Quantity Date Captured [...]
--- OUTSIDE RECORDS SUMMARY | 2024-01-14 12:00 | XMS_ITS | Clinical Summary ---
Author Organization [facility] Address [address] [place] [address] Care Team Providers Care Supervisor Metal Furniture Fabrication Name Role Phone Lyndsey Guzman MD Primary Care Provider [phone] Allergies Active Allergy Reactions Criticality Noted Date [...] Overview: Added automatically from request for surgery [id number] Tear of medial cartilage or meniscus of [...] CDT Plan of Treatment Not on file Advance Directives For more information, please contact: [phone] * Full Code (Latest Code Status on File) Date Activated Date Inactivated Comments 10/09/2020 2:28 PM 10/10/2020 1:54 PM All basic an d advanced life-sustaining interventions are performed as appropriate Post op Question Answer Comments Code status determined by: Other (please linda t) Care Teams Supervisor Metal Furniture Fabrication Relationship Specialty Start Date End Date Lyndsey Guzman MD [facility] [address] [place] [address] PCP - General Family Medicine 08/28/20
--- OUTSIDE RECORDS SUMMARY | 2024-01-14 12:00 | XMS_ITS | Referral Summary ---
Author Organization [facility] Address [address] [place] [address] Care Team Providers Care Enterprise Cloud Architect Name Role Phone Lyndsey Guzman MD Primary Care Provider [phone] Allergies Active Allergy Reactions Criticality Noted Date [...] Overview: Added automatically from request for surgery [id number] Tear of medial cartilage or meniscus of [...] Advance Directives For more information, please contact: [phone] * Full Code (Latest Code Status on File) Date Activated Date Inactivated Comments 10/09/2020 2:28 PM 10/10/2020 1:54 PM All basic an d advanced life-sustaining interventions are performed as appropriate Post op Question Answer Comments Code status determined by: Other (please linda t) Care Teams Enterprise Cloud Architect Relationship Specialty Start Date End Date Lyndsey Guzman MD [facility] [address] [place] [address] PCP - General Family Medicine 08/28/20
--- OUTSIDE RECORDS SUMMARY | 2024-01-14 12:00 | XMS_ITS | Continuity of Care Document ---
Author Organization [facility] Address [address] [place] [address] [place] [address] Phone Care Team Providers Care Director Smb Sales Name Role Phone Will Celestino MARTINEZ Unavailable [...] tablet - Active Flonase 50 mcg/actuation Nasal [place] - Active dicyclomine 10 mg capsule - Active Procedures Procedure Date OFFICE CONSULTATION Advance Directives Directive Yes / No Effective Date File Name No Information Encounters Encounter Description Practice Location Reason(s) For Visit Diagnoses Date Provider Providers Copied on Encounter [facility], [address] [place] [address], [id number] , [place] tel:[phone] [facility] [place] No Information 2 Will Celestino. [address] [facility] [place], [place], [id number] , [place]. tel:[phone] OFFICE CONSULTATION [facility], [address] [facility] [place], [place], [id number] , [place] tel:[phone] [facility] [place] widespread pain (chief complaint) LumbagoCervicalgiaP ain in joint involving ankle and footMyalgia and myositis, unspecifiedPain in joint involving shoulder regionPain in joint involving pelvic region and thighDepressionHype rtension, Benign 3 Devin Dunnw. [address] [place], [id number] , . tel:[phone] Referring Provider: Celestino Garcia, [address] [place], [address] . tel:[phone] Family History Family Member Type Diagnosis Age [...]
--- OUTSIDE RECORDS SUMMARY | 2024-01-14 12:01 | XMS_ITS | Encounter Summary ---
Author Organization [facility] Address [address] [place] [address] Care Team Providers Care Senior Salesforce Developer Name Role Phone Devin Britt DO Primary Care Provider [phone] Damian Dowell MD Unavailable [phone] Collin Anthony MD Unavailable Unavailable Frw, None Primary Care Provider Unavailabl e Allison Smyth Primary Care Provider [phone] Lyndsey Guzman MD Primary Care Provider + [phone] Carine Smallwood MD Unavailable +[phone] Vee Levy-C Unavailable [phone] Carine Smallwood MD Unavailable +[phone] Vee Levy-C Unavailable +[phone] Carine Smallwood MD Unavailable +[phone] Vee Levy-C Unavailable [phone] Carine Smallwood MD Unavailable +[phone] Vee Levy-C Unavailable [phone] Carine Smallwood MD Unavailable [phone] Vee Levy-C Unavailable +[phone] Carine Smallwood MD Unavailable [phone] Vee Levy PA-C Unavailable Carine Smallwood MD Unavailable Vee Levy PA-C Unavailable Reason for Visit * Reason Onset Date Comments Refill Request 03/07/2006 zaida fine Encounter Details Date Type Department Care Team (Late st Contact Info) Description 03/07/2006 Refill [facility] [address] [place] [id number] Collin Anthony MD Refill Request (zaida [...] will FAX it directly to the pharmacy. ON SORTING MACHINE FEEDER documented in this encounter Plan of Treatment Not on file documented as of this encounter Visit Diagnoses Not on filedocumented in this encounter Care Teams Senior Salesforce Developer Relationship Specialty Start Date End Date Devin Britt DO [address] [place] [address] PCP - General 04/18/05 09/04/11 Damian Dowell MD [address] [place] [address] PCP - Surgery 05/08/04 03/14/14 Collin Anthony MD [address] [place] [address] PCP - Orthopaedics 01/23/06 02/19/18 Frw, None PCP - General Family Practice 09/05/11 09/18/13 Allison Smyth PCP - General Family Practice 09/19/13 08/27/20 Lyndsey Guzman MD [facility] [address] [place] [address] PCP - General Family Medicine 08/28/20 Carine Smallwood MD [address] [place] [address] Assigned Surgical Provider 09/17/20 Vee Levy PA-C [address] [place] [address] Assigned Surgical Provider 10/29/20 Carine Smallwood MD [address] [place] [address] Assigned Surgical Provider 11/05/20 Vee Levy PA-C [address] [place] [address] Assigned Surgical Provider 12/03/20 Carine Smallwood MD [address] [place] [address] Assigned Surgical Provider 12/31/20 Vee Levy PA-C [address] [place] [address] Assigned Surgical Provider 03/11/21 Carine Smallwood MD [address] [place] [address] Assigned Surgical Provider 02/25/21 Vee Levy PA-C [address] [place] [address] Assigned Surgical Provider 02/11/21 Carine Smallwood MD [address] [place] [address] Assigned Surgical Provider 03/25/2104/14/21 eVe Levy PA-C [address] [place] [address] Assigned Surgical Provider 04/15/2104/21/21 Carine Smallwood MD [address] [place] [address] Assigned Surgical Provider 05/27/2112/14/21 Vee Levy PA-C [address] [place] [address] Assigned Surgical Provider 05/20/2104/04 Carine Smallwood MD [address] [place] [address] Assigned Surgical Provider 04/22/2105/19/21 Vee Levy PA-C [address] [address] Assigned Surgical Provider 12/15/21 documented as of this encounter
--- OUTSIDE RECORDS SUMMARY | 2024-01-14 12:01 | XMS_ITS | Encounter Summary ---
Author Organization [facility] Address [address] [place] [address] Care Team Providers Care Medical Office Professional Instructor Name Role Phone Devin Britt DO Primary Care Provider [phone] Urvashi Mccabe MD Primary Care Provider Edwin Rangel MD Primary Care Provider Damian Dowell MD Unavailable Collin Singh MD Unavailable Unavailable Frw, None Primary Care Provider Unavailabl Allison Porras Primary Care Provider Lyndsey Guzman MD Primary Care Provider Carine Smallwood MD Unavailable [phone] Vee Levy-C Unavailable [phone] Carine Smallwood MD Unavailable [phone] Vee Levy-C Unavailable +[phone] Carine Smallwood MD Unavailable +[phone] Vee Levy-C Unavailable [phone] Carine Smallwood MD Unavailable +[phone] Vee Levy-C Unavailable Carine Smallwood MD Unavailable Vee Levy PA-C Unavailable Carine Smallwood MD Unavailable Vee Levy PA-C Unavailable Carine Smallwood MD Unavailable ScottyVee norris PA-C Unavailable Reason for Visit * Reason Onset Date Comments Pain 05/21/2004 Encounter Details Date Type Department Care Team (Late st Contact Info) Description 05/21/2004 Telephone [facility] [place] Surgery [address] [place] [phone] Damian Dowell MD [address] [place] [id number] Pain Social History Tobacco Use Types Packs/Day [...] to pt to be seen again. ER MACHINE documented in this encounter Plan of Treatment Not on file documented as of this encounter Visit Diagnoses Not on filedocumented in this encounter Care Teams Medical Office Professional Instructor Relationship Specialty Start Date End Date Devin Britt DO [address] [place] [address] PCP - General 04/18/05 09/04/11 Urvashi Mccabe MD [address] [place] [address] PCP - General 11/07/04 04/17/05 Edwin Rangel MD [facility] [address] [place] [address] PCP - General 05/08/04 11/06/04 Damian Dowell MD [address] [place] [address] PCP - Surgery 05/08/04 03/14/14 Collin Singh MD [address] [place] [address] PCP - Orthopaedics 01/23/06 02/19/18 Frw, None PCP - General Family Practice 09/05/11 09/18/13 Allison Smyth PCP - General Family Practice 09/19/13 08/27/20 Lyndsey Guzman MD [facility] [address] [address] PCP - General Family Medicine 08/28/20 Carine Smallwood MD [address] [facility] [address] [place] [address] Assigned Surgical Provider 09/17/20 Vee Levy PA-C [address] [facility] [address] [place] [address] Assigned Surgical Provider 10/29/20 Carine Smallwood MD [address] [place] [address] Assigned Surgical Provider 11/05/20 Vee Levy PA-C [address] [place] [address] Assigned Surgical Provider 12/03/20 Carine Smallwood MD [address] [place] [address] Assigned Surgical Provider 12/31/20 Vee Levy PA-C [address] [place] [address] Assigned Surgical Provider 03/11/21 Carine Smallwood MD [address] [place] [address] Assigned Surgical Provider 02/25/21 Vee Levy PA-C [address] [place] [address] Assigned Surgical Provider 02/11/21 Carine Smallwood MD [address] [place] [address] Assigned Surgical Provider 03/25/2104/14/21 Vee Levy PA-C [address] [place] [address] Assigned Surgical Provider 04/15/2104/21/21 Carine Smallwood MD [address] [place] [address] Assigned Surgical Provider 05/27/2112/14/21 Vee Levy PA-C [address] [place] [address] Assigned Surgical Provider 05/20/2104/04 Carine Smallwood MD [address] [place] [address] Assigned Surgical Provider 04/22/2105/19/21 Vee Levy PA-C [address] [place] [address] Assigned Surgical Provider 12/15/21 documented as of this encounter
--- OUTSIDE RECORDS SUMMARY | 2024-01-14 12:01 | XMS_ITS | Encounter Summary ---
Author Organization [facility] Address [address] [place] [address] Care Team Providers Care Instrument Installer Name Role Phone Devin Britt DO Primary Care Provider [phone] Damian Dowell MD Unavailable [phone] Collin Singh MD Unavailable Unavailable Frw, None Primary Care Provider Unavailabl e Allison Smyth Primary Care Provider [phone] Lyndsey Guzman MD Primary Care Provider + [phone] Carine Smallwood MD Unavailable +[phone] Vee Levy-C Unavailable [phone] Carine Smallwood MD Unavailable +[phone] Vee Levy-C Unavailable +[phone] Carine Smallwood MD Unavailable +[phone] Vee Levy-C Unavailable [phone] Carine Smallwood MD Unavailable +[phone] Vee Levy-C Unavailable [phone] Carine Smallwood MD Unavailable [phone] Vee Levy-C Unavailable [phone] Carine Smallwood MD Unavailable +[phone] Vee Levy PA-C Unavailable +[phone] Carine Smallwood MD Unavailable +[phone] Vee Levy PA-C Unavailable [phone] Encounter Details Date Type Department Care Team (Late st Contact Info) Description 05/06/2005 [facility] [place] Inpatient Dept [address] [place] [address] Frw, Inpatient Provider Social History [...] without complications. Bernardino Key M.D. 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 documented in this encounter Plan of Treatment Not on file documented as of this encounter Visit Diagnoses Not on filedocumented in this encounter Care Teams Instrument Installer Relationship Specialty Start Date End Date Devin Britt DO [address] [place] [address] PCP - General 04/18/05 09/04/11 Damian Dowell MD [address] [place] [address] PCP - Surgery 05/08/04 03/14/14 Collin Singh MD [address] [place] [address] PCP - Orthopaedics 01/23/06 02/19/18 Frw, None PCP - General Family Practice 09/05/11 09/18/13 Allison Smyth PCP - General Family Practice 09/19/13 08/27/20 Lyndsey Guzman MD [facility] [address] [place] [address] PCP - General Family Medicine 08/28/20 Carnie Smallwood MD [address] [place] [address] 650067 Assigned Surgical Provider 09/17/20 Vee Levy PA-C [address] [place] [address]88107 Assigned Surgical Provider 10/29/20 Carine Smallwood MD [address] [place] [address]147 Assigned Surgical Provider 11/05/20 Vee Levy PA-C [address] [place] [address] Assigned Surgical Provider 12/03/20 Carine Smallwood MD [address] [place] [address] Assigned Surgical Provider 12/31/20 Vee Levy PA-C [address] [place] [address] Assigned Surgical Provider 03/11/21 Carine Smallwood MD [address] [place] [address] Assigned Surgical Provider 02/25/21 Vee Levy PA-C [address] [place] [address] Assigned Surgical Provider 02/11/21 Carine Smallwood MD [address] [place] [address] Assigned Surgical Provider 03/25/2104/14/21 Vee Levy PA-C [address] [place] [address] Assigned Surgical Provider 04/15/2104/21/21 Carine Smallwood MD [address] [place] [address] Assigned Surgical Provider 05/27/2112/14/21 Vee Levy PA-C [address] [place] [address] Assigned Surgical Provider 05/20/2104/04 Carine Smallwood MD [address] [place] [address] Assigned Surgical Provider 04/22/2105/19/21 Vee Levy PA-C [address] [place] [address] Assigned Surgical Provider 12/15/21 documented as of this encounter
--- OUTSIDE RECORDS SUMMARY | 2024-01-14 12:01 | XMS_ITS | Encounter Summary ---
Author Organization [facility] Address [address] [place] [address] Care Team Providers Care Rn New Graduate Name Role Phone Devin Britt DO Primary Care Provider [phone] Damian Dowell MD Unavailable [phone] Collin Singh MD Unavailable Unavailable Frw, None Primary Care Provider Unavailabl e Allison Smyth Primary Care Provider [phone] Lyndsey Guzman MD Primary Care Provider + [phone] Carine Smallwood MD Unavailable +[phone] Vee Levy-C Unavailable [phone] Carine Smallwood MD Unavailable +[phone] Vee Levy-C Unavailable +[phone] Carine Smallwood MD Unavailable +[phone] Vee Levy-C Unavailable [phone] Carine Smallwood MD Unavailable +[phone] Vee Levy-C Unavailable +[phone] Carine Smallwood MD Unavailable +[phone] Vee Levy-C Unavailable [phone] Carine Smallwood MD Unavailable Vee Levy PA-C Unavailable Carine Smallwood MD Unavailable [phone] Vee Levy PA-C Unavailable Reason for Visit * Reason Onset Date Comments Refill Request 05/30/2006 Francisco/zaida Encounter Details Date Type Department Care Team (Late st Contact Info) Description 05/30/[address] [facility] [place] [facility] [address] [place] [address] Collin Singh MD Refill Request [...] as she has not been seen since [facility] and hasn't been able to make other appts and currently has no appt made. 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 Plan of Treatment Not on file documented as of this encounter Visit Diagnoses Not on filedocumented in this encounter Care Teams Rn New Graduate Relationship Specialty Start Date End Date Devin Britt DO [address] [place] [address] PCP - General 04/18/05 09/04/11 Damian Dowell MD [address] [place] [address] PCP - Surgery 05/08/04 03/14/14 Collin Singh MD [address] [place] [address] PCP - Orthopaedics 01/23/06 02/19/18 Frw, None PCP - General Family Practice 09/05/11 09/18/13 Libra Sabihalatisha PCP - General Family Practice 09/19/13 08/27/20 Lyndsey Guzman MD [facility] [address], [place] [address] PCP - General Family Medicine 08/28/20 Carine Smallwood MD [address] [place] [address] Assigned Surgical Provider 09/17/20 Vee Levy PA-C [address] [place] [address] Assigned Surgical Provider 10/29/20 Carine Smallwood MD [address] [place] [address] Assigned Surgical Provider 11/05/20 Vee Levy PA-C [address] [place] [address] Assigned Surgical Provider 12/03/20 Carine Smallwood MD [address] [place] [address] Assigned Surgical Provider 12/31/20 Vee Levy PA-C [address] [place] [address] Assigned Surgical Provider 03/11/21 Carine Smallwood MD [address] [place] [address] Assigned Surgical Provider 02/25/21 Vee Levy PA-C [address] [place] [address] Assigned Surgical Provider 02/11/21 Carine Smallwood MD [address] [place] [address] Assigned Surgical Provider 03/25/2104/14/21 Vee Levy PA-C [address] [place] [address] Assigned Surgical Provider 04/15/2104/21/21 Carine Smallwood MD [address] [place] [address] Assigned Surgical Provider 05/27/2112/14/21 Vee Levy PA-C [address] [place] [address] Assigned Surgical Provider 05/20/2104/04 Carine Smallwood MD [address] [facility] [address] [place] [address] Assigned Surgical Provider 04/22/2105/19/21 Vee Levy PA-C [address] [facility] [address] [place], [place] [address] Assigned Surgical Provider 12/15/21 documented as of this encounter
--- OUTSIDE RECORDS SUMMARY | 2024-01-14 12:01 | XMS_ITS | Data Portability ---
Author Organization [facility], [facility] Address [address] [place] [address] Care Team Providers Care Clinical Massage Therapist Name Role Phone WOLF BANSAL Primary Care Provider Assessment No assessment recorded. Plan of Treatment Reminders Order Date Submit Date Provider Last Modified By Organization Details Last Modified Time Details Appointments None recorded. Lab urinalysi s, dipstick 2021 022 abajema [facility], [address], [place], [address], 2 12:42:04 urinalysi s, dipstick 2022 023 [email or web address] [facility], [address], [place], [address], 3 12:28:23 Referral physical therapist referral - referral for stress incontine ce 2021 022 clif Olmos, [address] [facility], [place], [address], 2 08:23:08 physical therapist referral 2022 023 clif Olmos, [address] [place], [address], 3 07:32:43 Procedures None recorded. Surgeries None recorded. Imaging CT, abdomen + pelvis, w/ contrast - Urogram phase 2021 022 [facility], [address], [place], [address], 2 17:33:27 Medication Orders trospium 20 mg tablet 2022 023 brit [id number], [address] [facility], [place], [place], [id number], 3 12:28:23 Patient TargetsNo targets recorded. Patient [...] Available [facility] [address], [place], [address], 01/01/2022 11:52:48 01/02/20 22 01/01/2022 urina lysis , dipst ick Clarity-Stat us Clear Not Available [facility] [address], [place], [address], 01/01/2022 11:52:48 01/02/20 22 01/01/2022 urina lysis , dipst ick Glucose-Stat us Negati ve Not Available [facility] [address], [place], [address], 01/01/2022 11:52:48 01/02/20 22 01/01/2022 urina lysis , dipst ick Bilirubin-St atus Negati ve Not Available [facility] [address], [place], [address], 01/01/2022 11:52:48 01/02/20 22 01/01/2022 urina lysis , dipst ick Ketones-Stat us Negati ve Not Available [facility] [address], [place], [address], 01/01/2022 11:52:48 01/02/20 22 01/01/2022 urina lysis , dipst ick Sp Red [place]-Stat us 1.020 Not Available [facility] [address], [place], [address], 01/01/2022 11:52:48 01/02/20 22 01/01/2022 urina lysis , dipst ick pH-Status 5.5 Not Available [facility] [address], [place], [address], 01/01/2022 11:52:48 01/02/20 22 01/01/2022 urina lysis , dipst ick Urobilinogen -Status 0.2 Not Available [facility] [address], [place], [address], 01/01/2022 11:52:48 01/02/20 22 01/01/2022 urina lysis , dipst ick Nitrates-Sta tus negati ve Not Available [facility] [address], [place], [address], 01/01/2022 11:52:48 01/02/20 22 01/01/2022 urina lysis , dipst ick Blood-Status Negati ve Not Available [facility] [address], [place], [address], 01/01/2022 11:52:48 01/02/20 22 01/01/2022 urina lysis , dipst ick Leuko-Status Negati ve Not Available [facility] [address], [place], [address], 01/01/2022 11:52:48 01/02/20 22 01/01/2022 urina lysis , dipst ick Specimen Type Voided Not Available [facility] [address], [place], [address], 01/01/2022 11:52:48 01/02/20 22 01/01/2022 urina lysis , dipst ick Performed by Wolf Frey RN Not Available [facility] [address], [place], [address], 01/01/2022 11:52:48 01/02/20 22 01/01/2022 urina lysis , dipst ick Total Urine Volume 20cc Not Available [facility] [address], [place], [address], 01/01/2022 11:52:48 06/26/19 23 06/25/2022 urina lysis , dipst ick Color-Status Yellow Not Available [facility] [address], [place], [address], 06/25/2022 12:08:56 06/26/19 23 06/25/2022 urina lysis , dipst ick Clarity-Stat us Clear Not Available [facility] [address], [place], [address], 06/25/2022 12:08:56 06/26/19 23 06/25/2022 urina lysis , dipst ick Glucose-Stat us Negati ve Not Available [facility] [address], [place], [address], 06/25/2022 12:08:56 06/26/19 23 06/25/2022 urina lysis , dipst ick Bilirubin-St atus Negati ve Not Available [facility] [address], [place], [address], 06/25/2022 12:08:56 06/26/19 23 06/25/2022 urina lysis , dipst ick Ketones-Stat us Negati ve Not Available [facility] [address], [place], [address], 06/25/2022 12:08:56 06/26/19 23 06/25/2022 urina lysis , dipst ick Sp Red [place]-Stat us 1.010 Not Available [facility] [address], [place], [address], 06/25/2022 12:08:56 06/26/19 23 06/25/2022 urina lysis , dipst ick pH-Status 5.5 Not Available [facility] [address], [place], [address], 06/25/2022 12:08:56 06/26/19 23 06/25/2022 urina lysis , dipst ick Urobilinogen -Status 0.2 Not Available [facility] [address], [place], [address], 06/25/2022 12:08:56 06/26/19 23 06/25/2022 urina lysis , dipst ick Nitrates-Sta tus negati ve Not Available [facility] [address], [place], [address], 06/25/2022 12:08:56 06/26/19 23 06/25/2022 urina lysis , dipst ick Blood-Status Negati ve Not Available [facility] [address], [place], [address], 06/25/2022 12:08:56 06/26/19 23 06/25/2022 urina lysis , dipst ick Leuko-Status Negati ve Not Available [facility] [address], [place], [address], 06/25/2022 12:08:56 06/26/19 23 06/25/2022 urina lysis , dipst ick Specimen Type Voided Not Available [facility] [address], [place], [address], 06/25/2022 12:08:56 01/08/20 22 01/01/2022 bladd er scan (PROC ) No observ ation record ed. BARCODE Not Available 2021 09:07:18 06/21/19 23 06/18/2022 CT ABD wo&W & pelv wo&W (no oral cont) No observ ation record ed. [email or web address] [facility] [address] [facility] [facility] [address], [place], [address], 07/01/2022 10:45:14 Result Notes None recorded. Problems Name Problem SNOMED Code Status Onset Date Resolution Date Notes Provider Name and Address Organization Details Recorded Time Microscop ic hematuria 940369346 Active 2016 R31.29 : Other microscopi c hematuria Not Available [facility] 02:03:03 Problem Notes None recorded. Procedures Surgical History Date Name Laterality Status Provider Name and Address Organization Details Recorded Time 023 Bladder Scan completed Siobhan Sheets [facility] 06/25/2022 12:17:55 022 CystoscopyFemale completed Bala Desai PA-C [address] [facility],[address], [place], [address], [facility] 01/01/2022 12:36:16 022 Bladder Scan completed Wolf Frey [facility] 01/01/2022 11:52:43 Orthopedic Surgery completed Wolf sheppard [facility] 01/01/2022 11:49:26 oophorectomy completed Wolf Frey [facility] 01/01/2022 11:49:38 thyroidectomy completed Wolf Frey [facility] 01/01/2022 11:49:45 Imaging Results Imaging Date Name Status LastModified by Organiz ation Details LastModified Time 01/01/2022 bladder scan (PROC) completed BAR[facility] Information not available 01/07/2022 09:07:18 06/18/2022 CT ABD wo&W & pelv wo&W (no oral cont) completed [facility] [address], [place], [address], 07/01/2022 10:45:14 Procedure Notes None recorded. Medical Equipment None Reported. Allergies Allergen ID Allergen Name Allergen Category Reaction Reaction Severity Criticality Documentation Date Start Date Code Code System Note Provider Name and Address Organization Details Recorded Time 468949 adhesive tape environme nt,medica tion Not available Not available Not available 01/01/2022 Wolf reyes [facility] 2 11:46:01 188749 nickel environme nt Not available Not available Not available 01/01/2022 93883 29 RxNorm Wolf reyes [facility] 2 11:46:05 Medications Name Sig Start [...] Updated DateTime 01/01/2022 168.91 cm 28.8 kg/m2 66132.22 g Wolf Frey [place] - [facility] 01/01/2022 11:45:40 Date Recorded Body height Body mass index (BMI) Body weight Provider Name and Address Organization Details Last Updated DateTime 06/25/2022 168.91 cm 28.8 kg/m2 33147.22 g Ciara Ross [facility] 06/25/2022 12:08:29 Social History Question Answer Notes LastModified by Organizat ion Details LastModified Time Tobacco Smoking Status Current Every Day [facility]/01/2022 11:48:59 What Is Your Level Of Alcohol Consumption? None [email or web address] Information not available 01/01/2022 What Is Your Level Of Caffeine Consumption? Heavy [email or web address] Information not available 01/01/2022 What Was The Date Of Your Most Recent Tobacco Screening? 06/25/2022 Information not available 06/25/2022 How Much Tobacco Do You Smoke? 1 PPD [email or web address] [id number] Information not available 01/01/2022 Do You Use [...] Age of this Age Resolved Age Notes LastModified by Organization Details LastModified Time Father Malignant tumor of testis [email or web address] Not available 2021 11:48:35 Maternal Grandfather Family history of malignant neoplasm [email or web address] Not available 2021 11:48:46 Medical History Condition Response Sexually Transmitted Infection N Diabetes Y Other N Bleeding Disorder N High Blood Pressure Y Kidney Stones Y High Cholesterol N GERD/Acid Reflux Y Heart Disease N Cancer Y Depression N Lung Disease N Gynecological History Statement/Question Response If Post Menopausal, Age at Menopause 51 Sexually Active? Y Obstetrics History GPAL:G 0 P 0 0 0 0 Immunizations Vaccine Type Date Status Provider Name and Address Organization Details Recorded Time Influenza, injectable,quadriva lent, preservative free, pediatric 02/17/2013 completed Korin reyes [facility] 04/09/2023 14:12:24 Influenza, recombinant, quadrivalent, PF 05/31/2020 completed Korin Allar null, [facility] 04/09/2023 14:12:24 Influenza, recombinant, quadrivalent, PF 02/01/2021 completed Korin Allar null, [facility] 04/09/2023 14:12:24 Influenza, recombinant, quadrivalent, PF 03/18/2019 completed Korin Allar null, [facility] 04/09/2023 14:12:24 zoster recombinant 05/31/2020 completed Korin Al lar null, [facility] 04/09/2023 14:12:24 zoster recombinant 02/01/2021 completed Korin Al lar null, [facility] 04/09/2023 14:12:24 Tdap 10/02/2011 completed Korin Allar null, [facility] 04/09/2023 14:12:24 Influenza, split virus, trivalent, preservative 04/27/2010 completed Korin Allar null, [facility] 04/09/2023 14:12:24 Influenza, split virus, trivalent, PF 01/15/2011 completed Korin Allar null, [facility] 04/09/2023 14:12:24 Td (adult), 2 Lf tetanus toxoid, preservative free, adsorbed 05/23/2021 completed Korin Allar null, [facility] 04/09/2023 14:12:24 Td (adult), 2 Lf tetanus toxoid, preservative free, adsorbed 05/28/2001 completed Korin Allar null, [facility] 04/09/2023 14:12:24 Hep B, adult 01/11/2020 completed Korin Allar null, [facility] 04/09/2023 14:12:24 Influenza, split virus, quadrivalent, PF 01/30/2018 completed Korin Allar null, [facility] 04/09/2023 14:12:24 Influenza, split virus, quadrivalent, PF 03/23/2014 completed Korin Allar null, [facility] 04/09/2023 14:12:24 Past Encounters Encounter ID Performer Location Encounter Start Date Encounter Closed Date Diagnosis/Indication Diagnosis SNOMED-CT Code Diagnosis ICD10 Code [id number] MD NANCY [facility] [address] [place], [place] [address] 01/01/2022 11:10:54 01/04/2022 16:59:32 Microscopic hematuria 357106899 R31.[address] ress incontinence 30803997 N39.3 Overactive urinary bladder 156030261 N32.81 [id number] Flavio Morales MD [facility] [address] [place] [address] 06/25/2022 12:03:25 06/26/2022 13:47:53 Overactive urinary bladder 560060227 N32.81 Microscopic hematuria 19 8298853 R31.29 Female str ess incontinence 69326117 N39.3 Health Concerns Section Related Observation LastModified by Organization Detai ls LastModified Time None Recorded Concern Status LastModified by Organization Details LastModified Time None Recorded Advance Directives Directive None Recorded Payers Encounter Date Sequence Insurance Name Policy Number Policy Bonilla Covered Member ID Bonilla Member ID Guarantor Name 01/01/2022 1 [employer] - INDIVIDUAL AND FAMILY (O) [id number] 1 Aileen Sloan [id number] Aileen Sloan 06/25/2022 1 [employer] - INDIVIDUAL [employer] FAMILY (O) [id number] 1 Aileen Alassley [id number] Aileen Sloan Notes Date Note Type Note Provider Name [...] have positive stress test Flavio Morales MD [address] [place] [address],[address] [place] [address], [address], [facility] - [facility] 01/03/2022 17:56:51 06/25/2022 text/html HPI Notes: [...] stones -HTN, -asthma -IBS Flavio Morales MD [address] [place] [address],[address], [place], [address], [facility] 06/25/2022 12:28:57 OBGyn Episode No OBEpisode recorded.
== END 2024-01-14 11:58 | disposition home or self-care (01) ==
LOC: LKVREF 11:59
PROVIDERS: PCP Physician Assistant Medical; Visit Provider Physician Assistant Medical
DX: Z22.322 Carrier or suspected carrier of Methicillin resistant Staphylococcus aureus (principal)
CPT/HCPCS: 87081

== ENCOUNTER 2024-02-18 15:03 | Outpatient (CLI) | payer MEDICAID, SELFPAY ==
--- OUTSIDE RECORDS SUMMARY | 2024-02-18 15:07 | XMS_ITS | Encounter Summary ---
Author Organization [facility] Address [address] [place] [address] Care Team Providers Care Medical Authorization Specialist Name Role Phone Devin Britt DO Primary Care Provider [phone] Urvashi Mccabe MD Primary Care Provider Edwin Rangel MD Primary Care Provider Damian Dowell MD Unavailable [phone] Collin Singh MD Unavailable Unavailable Frw, None Primary Care Provider Unavailabl Allison Porras Primary Care Provider Lyndsey Guzman MD Primary Care Provider Carine Smallwood MD Unavailable [phone] Vee Levy-C Unavailable [phone] Carine Smallwood MD Unavailable [phone] Vee Levy-C Unavailable [phone] Carine Smallwood MD Unavailable [phone] Vee Levy-C Unavailable [phone] Carine Smallwood MD Unavailable [phone] Vee Levy-C Unavailable [phone] Carine Smallwood MD Unavailable Vee Levy PA-C Unavailable Carine Smallwood MD Unavailable Vee Levy PA-C Unavailable Carine Smallwood MD Unavailable Vee Levy PA-C Unavailable Reason for Visit * Reason Onset Date Comments Pain 05/21/2004 Encounter Details Date Type Department Care Team (Late st Contact Info) Description 05/21/2004 Telephone [facility] [place] Surgery [address] [place] [address] Damian Dowell MD [address] [place] [id number] Pain Social History Tobacco Use Types Packs/Day Years Used Date Smoking Tobacco: Former Cigarettes 0.5 7 1 06/03/1996 - 04/02/2004 Alcohol Use Standard Drinks/Week Comments Not Asked 0 (1 standard drink = 0.6 oz pur e alcohol) Comments No Sex and Gender Information Value Date Recorded Sex Assigned at Not on file 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 documented in this encounter Plan of Treatment Not on file documented as of this encounter Visit Diagnoses Not on filedocumented in this encounter Care Teams Medical Authorization Specialist Relationship Specialty Start Date End Date Devin Britt DO [address] [place] [address] PCP - General 1/5/06 5/23/12 Urvashi Mccabe MD [facility] [address] [place] [address] PCP - General 11/07/04 04/17/05 Edwin Rangel MD [address] [address] PCP - General 05/08/04 11/06/04 Damian Dowell MD [address] [place] [address] PCP - Surgery 05/08/04 03/14/14 Collin Singh MD [address] [place] [address] PCP - Orthopaedics 01/23/06 02/19/18 Frw, None PCP - General Family Practice 09/05/11 09/18/13 Allison Smyth PCP - General Family Practice 09/19/13 08/27/20 Lyndsey Guzman MD [facility] [address] [place] [address] PCP - General Family Medicine 08/28/20 Carine Smallwood MD [address] [place] [address] Assigned Surgical Provider 09/17/20 Vee Levy PA-C [address] [place] [address] Assigned Surgical Provider 10/29/20 Carine Smallwood MD [address] [place] [address] Assigned Surgical Provider 11/05/20 Vee Levy PA-C [address] [place] [address] Assigned Surgical Provider 12/03/20 Carine Smallwood MD [address] [place] [address] Assigned Surgical Provider 12/31/20 Vee Levy PA-C [address] [place] [address] Assigned Surgical Provider 03/11/21 Carine Smallwood MD [address] [place] [address] Assigned Surgical Provider 02/25/21 Vee Levy PA-C [address] [place] [address] Assigned Surgical Provider 02/11/21 Carine Smallwood MD [address] [place] [address] Assigned Surgical Provider 03/25/2104/14/21 Vee Levy PA-C [address] [place] [address] Assigned Surgical Provider 04/15/2104/21/21 Carine Smallwood MD [address] [place] [address] Assigned Surgical Provider 05/27/2112/14/21 Vee Levy PA-C [address] [place] [address] Assigned Surgical Provider 05/20/2104/04 Carine Smallwood MD [address] [place], [place] [address] Assigned Surgical Provider 04/22/2105/19/21 Vee Levy PA-C [address] [place], [place] [address] Assigned Surgical Provider 12/15/21 documented as of this encounter
--- OUTSIDE RECORDS SUMMARY | 2024-02-18 15:07 | XMS_ITS | Encounter Summary ---
Author Organization [facility] Address [address] [place] [address] Care Team Providers Care Die Try Out Worker Stamping Name Role Phone Devin Britt DO Primary Care Provider [phone] Damian Dowell MD Unavailable +[phone] Collin Anthony MD Unavailable Unavailable Frw, None Primary Care Provider Unavailabl e Allison Smyth Primary Care Provider +[phone] Lyndsey Guzman MD Primary Care Provider + [phone] Carine Smallwood MD Unavailable +[phone] Vee Levy-C Unavailable +[phone] Carine Smallwood MD Unavailable +[phone] Vee Levy-C Unavailable +[phone] Carine Smallwood MD Unavailable +[phone] Vee Levy-C Unavailable [phone] Carine Smallwood MD Unavailable +[phone] Vee Levy-C Unavailable +[phone] Carine Smallwood MD Unavailable +[phone] Vee Levy-C Unavailable +[phone] Carine Smallwood MD Unavailable [phone] Vee Levy PA-C Unavailable +[phone] Carine Smallwood MD Unavailable [phone] Vee Levy PA-C Unavailable Reason for Visit * Reason Onset Date Comments Refill Request 03/07/2006 zaida fine Encounter Details Date Type Department Care Team (Late st Contact Info) Description 03/07/2006 Refill [facility] [place] [facility] [address] [place] [address] Collin Anthony MD Refill Request (zaida anthony) Social History Tobacco Use Types Packs/Day Years Used Date Smoking Tobacco: Every Day Cigarettes 1 10 Alcohol Use Standard Drinks/Week Comments Yes 0 (1 standard drink = 0.6 oz pur e alcohol) Social Comments No Sex and Gender Information Value Date Recorded Sex Assigned at Not on file 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 R AND SANDER documented in this encounter Plan of Treatment Not on file documented as of this encounter Visit Diagnoses Not on filedocumented in this encounter Care Teams Die Try Out Worker Stamping Relationship Specialty Start Date End Date Devin Britt DO [address] [place] [address] PCP - General 04/18/05 09/04/11 Damian Dowell MD [address] [place] [address] PCP - Surgery 05/08/04 03/14/14 Collin Anthony MD [address] [place] [address] PCP - Orthopaedics 01/23/06 02/19/18 Frw, None PCP - General Family Practice 09/05/11 09/18/13 FernandohaSabihalatisha PCP - General Family Practice 09/19/13 08/27/20 Lyndsey Guzman MD [facility] [address] [place] [address] PCP - General Family Medicine 08/28/20 Carine Smallwood MD [address] [place] [address] Assigned Surgical Provider 09/17/20 Vee Levy PA-C [address] [place] [address] Assigned Surgical Provider 10/29/20 Carine Smallwood MD [address] [place] [address] Assigned Surgical Provider 11/05/20 Vee Levy PA-C [address] [place] [address] Assigned Surgical Provider 12/03/20 Carine Smallwood MD [address] [place] [address] Assigned Surgical Provider 12/31/20 Vee Levy PA-C [address] [place] [address] Assigned Surgical Provider 03/11/21 Carine Smallwood MD [address] [place] [address] Assigned Surgical Provider 02/25/21 Vee Levy PA-C [address] [place] [address] Assigned Surgical Provider 02/11/21 Carine Smallwood MD [address] [place] [address] Assigned Surgical Provider 03/25/2104/14/21 Vee Levy PA-C [address] [place] [address] Assigned Surgical Provider 04/15/2104/21/21 Carine Smallwood MD [address] [place] [address] Assigned Surgical Provider 05/27/2112/14/21 Vee Levy PA-C [address] [place] [address] Assigned Surgical Provider 05/20/2104/04 Carine Smallwood MD [address] [place] [address] Assigned Surgical Provider 04/22/2105/19/21 Vee Levy PA-C [address] [place] [address] Assigned Surgical Provider 12/15/21 documented as of this encounter
--- OUTSIDE RECORDS SUMMARY | 2024-02-18 15:07 | XMS_ITS | Continuity of Care Document ---
Author Organization [facility] Address [address] [place] [address] Phone Care Team Providers Care Conditioner Tender Name Role Phone Johnna CARREON, PhD, Milo Unavailable Unavai lable Procedures Procedure Date Office/Outpatient Visit,[facility] 2023 Advance Directives Directive Yes / No Effective Date File Name No Information Encounters Encounter Description Practice Location Reason(s) For Visit Diagnoses Date Provider Providers Copied on Encounter [facility], [address], [place], [place], [id number], [place] tel:[phone] No Information Johnna Pedraza. [facility] [place], [address], [place], [address], [place]. tel:[phone] Office/Outpat ient Visit,[facility], [address], [place], [place], [id number], [place] tel:[phone] [facility] Low back pain, unspecified Johnna Pedraza. [facility] [place], [address], [place], [address], [place]. tel:[phone] Referring Provider: Preston Li, [facility] [address] [facility] [address], [place], [address]. tel:[phone] Family History Family Member Type Diagnosis Age At Onset No Information Payers Payer name Insurance type Covered constitution party ID Authorjanice bonner(s) [place] [employer] [facility] [id number] [facility] Michael 2021 [id number] Social History Type Description Quantity Date Captured [...]
--- OUTSIDE RECORDS SUMMARY | 2024-02-18 15:07 | XMS_ITS | Encounter Summary ---
Author Organization [facility] Address [address] [place] [address] Care Team Providers Care Bait Tier Name Role Phone Devin Britt DO Primary Care Provider [phone] Damian Dowell MD Unavailable [phone] Collin Singh MD Unavailable Unavailable Frw, None Primary Care Provider Unavailabl e Allison Smyth Primary Care Provider +[phone] Lyndsey Guzman MD Primary Care Provider + [phone] Carine Smallwood MD Unavailable +[phone] Vee Levy-C Unavailable [phone] Carine Smallwood MD Unavailable +[phone] Vee Levy-C Unavailable +[phone] Carine Smallwood MD Unavailable +[phone] Vee Levy-C Unavailable [phone] Carine Smallwood MD Unavailable [phone] Vee Levy-C Unavailable [phone] Carine Smallwood MD Unavailable [phone] Vee Levy-C Unavailable [phone] Carine Smallwood MD Unavailable [phone] Vee Levy PA-C Unavailable [phone] Carine Smallwood MD Unavailable +[phone] Vee Levy PA-C Unavailable [phone] Encounter Details Date Type Department Care Team (Late st Contact Info) Description 05/06/2005 [facility] [place] [facility] [address] [place] [address] Frw, Inpatient Provider Social History Tobacco Use Types Packs/Day Years Used Date Smoking Tobacco: Every Day Cigarettes 1 10 Smokeless Tobacco: Never Alcohol Use Standard Drinks/Week Comments Yes 0 (1 standard drink = 0.6 oz pur e alcohol) Social drink/monthly Comments No Sex and Gender Information Value Date Recorded Sex Assigned at Not on file 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 Bernardino Key M.D. Fadia cc: STRIAL SPECIALIST documented in this encounter Plan of Treatment Not on file documented as of this encounter Visit Diagnoses Not on filedocumented in this encounter Care Teams Bait Tier Relationship Specialty Start Date End Date Devin Britt, DO [address] [place] [address] PCP - General 04/18/05 09/04/11 Damian Dowell MD [address] [place] [address] PCP - Surgery 05/08/04 03/14/14 Collin Singh MD [address] [place] [address] PCP - Orthopaedics 01/23/06 02/19/18 Frw, None PCP - General Family Practice 09/05/11 09/18/13 Allison Smyth PCP - General Family Practice 09/19/13 08/27/20 Lyndsey Guzman MD [facility] [address] [place] [address] PCP - General Family Medicine 08/28/20 Carine Smallwood MD [address] [place] [address] Assigned Surgical Provider 09/17/20 Vee Levy PA-C [address] [place] [address] Assigned Surgical Provider 10/29/20 Carine Smallwood MD [address] [place] [address] Assigned Surgical Provider 11/05/20 Vee Levy PA-C [address] [place] [address] Assigned Surgical Provider 12/03/20 Carine Smallwood MD [address] [place] [address] Assigned Surgical Provider 12/31/20 Vee Levy PA-C [address] [place] [address] Assigned Surgical Provider 03/11/21 Carine Smallwood MD [address] [place] [address] Assigned Surgical Provider 02/25/21 Vee Levy PA-C [address] [place] [address] Assigned Surgical Provider 02/11/21 Carine Smallwood MD [address] [place] [address] Assigned Surgical Provider 03/25/2104/14/21 Vee Levy PA-C [address] [place] [address] Assigned Surgical Provider 04/15/2104/21/21 Carine Smallwood MD [address] [place] [address] Assigned Surgical Provider 05/27/2112/14/21 Vee Levy PA-C [address] [address] Assigned Surgical Provider 05/20/2104/04 Carine Smallwood MD [address] [address] Assigned Surgical Provider 04/22/2105/19/21 Vee Levy PA-C [address] [address] Assigned Surgical Provider 12/15/21 documented as of this encounter
--- OUTSIDE RECORDS SUMMARY | 2024-02-18 15:07 | XMS_ITS | Referral Summary ---
Author Organization [facility] Address [address] [place] [address] Care Team Providers Care Shirt Ironer Supervisor Name Role Phone Lyndsey Guzman MD Primary Care Provider [phone] Allergies Active Allergy Reactions Criticality Noted Date Comments Latex Hives 10/02/2020 Adhesive on bandaides Nickel Itching 10/02/2020 redness Medications VALTREX 1 GM OR TABSIndications :Herpes simplex without mention of complication,Ot her acne 2 po q 12 hours x [...] Noted Date Diagnosed Date Thyroid nodule 09/06/2020 Overview (09/06/2020): Added automatically from request for surgery [id number] Tear of medial cartilage or meniscus of knee, cu rrent 04/24/2005 Backache 11/05/2004 Overview (01/12/2015): Problem list name updated by automated process. Provider to review Abdominal pain, left lower quadrant 05/17/2004 Tobacco use disorder 10/19/2003 Other acne 08/26/2003 Irritable bowel syndrome 08/26/2003 Myalgia and myositis 08/26/2003 Overview (01/12/2015): Problem list name updated by automated process. 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 [address] [place] [address] PCP - General Family Medicine 08/28/20
--- OUTSIDE RECORDS SUMMARY | 2024-02-18 15:07 | XMS_ITS | Encounter Summary ---
Author Organization [facility] Address [address] [place] [address] Care Team Providers Care Tire Finisher Name Role Phone Devin Britt DO Primary Care Provider [phone] Damian Dowell MD Unavailable [phone] Collin Singh MD Unavailable Unavailable Frw, None Primary Care Provider Unavailabl e Allisno Smyth Primary Care Provider +[phone] Lyndsey Guzman MD Primary Care Provider + [phone] Carine Smallwood MD Unavailable +[phone] Vee Levy-C Unavailable [phone] Carine Smallwood MD Unavailable +[phone] Vee Levy-C Unavailable +[phone] Carine Smallwood MD Unavailable +[phone] Vee Levy-C Unavailable [phone] Carine Smallwood MD Unavailable +[phone] Vee Levy-C Unavailable [phone] Carine Smallwood MD Unavailable [phone] Vee Levy-C Unavailable +[phone] Carine Smallwood MD Unavailable Vee Levy PA-C Unavailable [phone] Carine Smallwood MD Unavailable Vee Levy PA-C Unavailable Reason for Visit * Reason Onset Date Comments Refill Request 05/30/2006 Francisco/zaida Encounter Details Date Type Department Care Team (Late st Contact Info) Description 05/30/2006 Refill [facility] [place] [facility] [address] [place] [address] Collin Singh MD Refill Request (Francisco/zaida) Social History Tobacco Use Types Packs/Day Years Used Date Smoking Tobacco: Every Day Cigarettes 1 10 Alcohol Use Standard Drinks/Week Comments Yes 0 (1 standard drink = 0.6 oz pur e alcohol) Social Comments No Sex and Gender Information Value Date Recorded Sex Assigned at Not on file 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 IFF DEPUTY documented in this encounter Plan of Treatment Not on file documented as of this encounter Visit Diagnoses Not on filedocumented in this encounter Care Teams Tire Finisher Relationship Specialty Start Date End Date Devin Britt DO [address] [place] [address] PCP - General 04/18/05 09/04/11 Damian Dowell MD [address] [place] [address] PCP - Surgery 05/08/04 03/14/14 Collin Singh MD [address] [place] [address] PCP - Orthopaedics 01/23/06 02/19/18 Frw, None PCP - General Family Practice 09/05/11 09/18/13 Allison Smyth PCP - General Family Practice 09/19/13 08/27/20 Lyndsey Guzman MD [facility] [address] [place] [address] PCP - General Family Medicine 08/28/20 Carine Smallwood MD [address] [place] [address] Assigned Surgical Provider 09/17/20 Vee Levy PA-C [address] [place] [address] Assigned Surgical Provider 10/29/20 Carine Smallwood MD [address] [place] [address] Assigned Surgical Provider 11/05/20 Vee Levy PA-C [address] [place] [address] Assigned Surgical Provider 12/03/20 Carine Smallwood MD [address] [place] [address] Assigned Surgical Provider 12/31/20 Vee Levy PA-C [address] [place] [address] Assigned Surgical Provider 03/11/21 Carine Smallwood MD [address] [place] [address] Assigned Surgical Provider 02/25/21 Vee Levy PA-C [address] [place] [address] Assigned Surgical Provider 02/11/21 Carine Smallwood MD [address] [place] [address] Assigned Surgical Provider 03/25/2104/14/21 Vee Levy PA-C [address] [place] [address] Assigned Surgical Provider 04/15/2104/21/21 Carine Smallwood MD [address] [place] [address] Assigned Surgical Provider 05/27/2112/14/21 Vee Levy PA-C [address] [place] [address] Assigned Surgical Provider 05/20/2104/04 Carine Smallwood MD [address] [facility] [address] [place] [address] Assigned Surgical Provider 04/22/2105/19/21 Vee Levy PA-C [address] [facility] [address] [place] [address] Assigned Surgical Provider 12/15/21 documented as of this encounter
--- OUTSIDE RECORDS SUMMARY | 2024-02-18 15:07 | XMS_ITS | Data Portability ---
Author Organization [facility], [facility] Address [address] [place] [address] Care Team Providers Care Candy Waffle Assembler Name Role Phone WOLF BANSAL Primary Care Provider [phone] Assessment No assessment recorded. Plan of Treatment Reminders Order Date Submit Date Provider Last Modified By Organization Details Last Modified Time Details Appointments None recorded. Lab urinalysi s, dipstick 2021 022 abajema [facility], [address], [place], [address], 2 12:42:04 urinalysi s, dipstick 2022 023 [email or web address] [facility], [address], [place], [address], 3 12:28:23 Referral physical therapist referral - referral for stress incontine ce 2021 022 clif Olmos, [address] [facility], [place], [address], 2 08:23:08 physical therapist referral 2022 023 clif Olmos, [address] [place], [address], 3 07:32:43 Procedures None recorded. Surgeries None recorded. Imaging CT, abdomen + pelvis, w/ contrast - [facility]rogram phase 2021 [facility], [address], [place], [address], 2 17:33:27 Medication Orders trospium 20 mg tablet 2022 023 brit [id number], [address] [facility], [place], [place], [id number], 3 12:28:23 Patient TargetsNo targets recorded. Patient [...] Available [facility] [address], [place], [address], 01/01/2022 11:52:48 01/02/20 22 01/01/2022 urina lysis , dipst ick Clarity-Stat us Clear Not Available [facility] [address], [place], [address], 01/01/2022 11:52:48 01/02/20 22 01/01/2022 urina lysis , dipst ick Glucose-Stat us Negati ve Not Available [facility] [address], [place], [address], 01/01/2022 11:52:48 01/02/20 22 01/01/2022 urina lysis , dipst ick Bilirubin-St atus Negati ve Not Available [facility] [address], [place], [address], 01/01/2022 11:52:48 01/02/20 22 01/01/2022 urina lysis , dipst ick Ketones-Stat us Negati ve Not Available [facility] [address], [place], [address], 01/01/2022 11:52:48 01/02/20 22 01/01/2022 urina lysis , dipst ick Sp Alto-Stat us 1.020 Not Available [facility] [address], [place], [address], 01/01/2022 11:52:48 01/02/20 22 01/01/2022 urina lysis , dipst ick pH-Status 5.5 Not Available [facility] [address], [place], [address], 01/01/2022 11:52:48 01/02/20 22 01/01/2022 urina lysis , dipst ick Urobilinogen -Status 0.2 Not Available [facility] [address], [place], [address], 01/01/2022 11:52:48 01/02/20 22 01/01/2022 urina lysis , dipst ick Nitrates-Sta tus negati ve Not Available [facility] [address], [place], [address], 01/01/2022 11:52:48 01/02/20 22 01/01/2022 urina lysis , dipst ick Blood-Status Negati ve Not Available [facility] [address], [place], [address], 01/01/2022 11:52:48 01/02/20 22 01/01/2022 urina lysis , dipst ick Leuko-Status Negati ve Not Available [facility] [address], [place], [address], 01/01/2022 11:52:48 01/02/20 22 01/01/2022 urina lysis , dipst ick Specimen Type Voided Not Available [facility] [address], [place], [address], 01/01/2022 11:52:48 01/02/20 22 01/01/2022 urina lysis , dipst ick Performed by Wolf Frey RN Not Available [facility] [address], [place], [address], 01/01/2022 11:52:48 01/02/20 22 01/01/2022 urina lysis , dipst ick Total Urine Volume 20cc Not Available [facility] [address], [place], [address], 01/01/2022 11:52:48 06/26/19 23 06/25/2022 urina lysis , dipst ick Color-Status Yellow Not Available [facility] [address], [place], [address], 06/25/2022 12:08:56 06/26/19 23 06/25/2022 urina lysis , dipst ick Clarity-Stat us Clear Not Available [facility] [address], [place], [address], 06/25/2022 12:08:56 06/26/19 23 06/25/2022 urina lysis , dipst ick Glucose-Stat us Negati ve Not Available [facility] [address], [place], [address], 06/25/2022 12:08:56 06/26/19 23 06/25/2022 urina lysis , dipst ick Bilirubin-St atus Negati ve Not Available [facility] [address], [place], [address], 06/25/2022 12:08:56 06/26/19 23 06/25/2022 urina lysis , dipst ick Ketones-Stat us Negati ve Not Available [facility] [address], [place], [address], 06/25/2022 12:08:56 06/26/19 23 06/25/2022 urina lysis , dipst ick Sp Alto-Stat us 1.010 Not Available [facility] [address], [place], [address], 06/25/2022 12:08:56 06/26/19 23 06/25/2022 urina lysis , dipst ick pH-Status 5.5 Not Available [facility] [address], [place], [address], 06/25/2022 12:08:56 06/26/19 23 06/25/2022 urina lysis , dipst ick Urobilinogen -Status 0.2 Not Available [facility] [address], [place], [address], 06/25/2022 12:08:56 06/26/19 23 06/25/2022 urina lysis , dipst ick Nitrates-Sta tus negati ve Not Available [facility] [address], [place], [address], 06/25/2022 12:08:56 06/26/19 23 06/25/2022 urina lysis , dipst ick Blood-Status Negati ve Not Available [facility] [address], [place], [address], 06/25/2022 12:08:56 06/26/19 23 06/25/2022 urina lysis , dipst ick Leuko-Status Negati ve Not Available [facility] [address], [place], [address], 06/25/2022 12:08:56 06/26/19 23 06/25/2022 urina lysis , dipst ick Specimen Type Voided Not Available [facility] [address], [place], [address], 06/25/2022 12:08:56 01/08/20 22 01/01/2022 bladd er scan (PROC ) No observ ation record ed. BARCODE Not Available 2021 09:07:18 06/21/19 23 06/18/2022 CT ABD wo&W & pelv wo&W (no oral cont) No observ ation record ed. [email or web address] [facility] [address] [facility] [address], [place], [address], 07/01/2022 10:45:14 Result Notes None recorded. Problems Name Problem SNOMED Code Status Onset Date Resolution Date Notes Provider Name and Address Organization Details Recorded Time Microscop ic hematuria 432769194 Active 2016 R31.29 : Other microscopi c hematuria Not Available [facility] 02:03:03 Problem Notes None recorded. Procedures Surgical History Date Name Laterality Status Provider Name and Address Organization Details Recorded Time 023 Bladder Scan completed Siobhan Sheets [facility] 06/25/2022 12:17:55 022 CystoscopyFemale completed Bala Desai PA-C [address] [facility],[address], [place], [address], [facility] 01/01/2022 12:36:16 022 Bladder Scan completed Wolf Frey [facility] 01/01/2022 11:52:43 Orthopedic Surgery completed Wolf sheppard [facility] 01/01/2022 11:49:26 oophorectomy completed Wolf Frey [facility] 01/01/2022 11:49:38 thyroidectomy completed Wolf Frey [facility] 01/01/2022 11:49:45 Imaging Results Imaging Date Name Status LastModified by Organiz ation Details LastModified Time 01/01/2022 bladder scan (PROC) completed BARCODE Information not available 01/07/2022 09:07:18 06/18/2022 CT ABD wo&W & pelv wo&W (no oral cont) completed [email or web address] [facility] [address], [place], [address], 07/01/2022 10:45:14 Procedure Notes None recorded. Medical Equipment None Reported. Allergies Allergen ID Allergen Name Allergen Category Reaction Reaction Severity Criticality Documentation Date Start Date Code Code System Note Provider Name and Address Organization Details Recorded Time 404458 adhesive tape environme nt,medica tion Not available Not available Not available 01/01/2022 Wolf reyes [facility] 2 11:46:01 885866 nickel environme nt Not available Not available Not available 01/01/2022 97815 29 RxNorm Wolf reyes [facility] 2 11:46:05 Medications Name Sig [...] Updated DateTime 01/01/2022 168.91 cm 28.8 kg/m2 [address]52[address] - [facility] 01/01/2022 11:45:40 Date Recorded Body height Body mass index (BMI) Body weight Provider Name and Address Organization Details Last Updated DateTime 06/25/2022 168.91 cm 28.8 kg/m2 77136.22 g Ciara Ross [facility] 06/25/2022 12:08:29 Social History Question Answer Notes LastModified by Organizat ion Details LastModified Time Tobacco Smoking Status Current Every Day [facility]/01/2022 11:48:59 What Is Your Level Of Alcohol Consumption? None [email or web address] Information not available 01/01/2022 What Is Your Level Of Caffeine Consumption? Heavy [email or web address] Information not available 01/01/2022 What Was The Date Of Your Most Recent Tobacco Screening? 06/25/2022 Information not available 06/25/2022 How Much Tobacco Do You Smoke? 1 PPD [place] [address] Information not available 01/01/2022 Do You Use [...] LastModified Time Father Malignant tumor of testis [email or web address] Not available 2021 11:48:35 Maternal Grandfather Family history of malignant neoplasm [place] [address] Not available 2021 11:48:46 Medical History Condition Response Sexually Transmitted Infection N Diabetes Y Other N Bleeding Disorder N High Blood Pressure Y Kidney Stones Y High Cholesterol N GERD/Acid Reflux Y Heart Disease N Cancer Y Lung Disease N Depression N Gynecological History Statement/Question Response If Post Menopausal, Age at Menopause 51 Sexually Active? Y Obstetrics History GPAL:G 0 P 0 0 0 0 Immunizations Vaccine Type Date Status Provider Name and Address Organization Details Recorded Time Influenza, injectable,quadriva lent, preservative free, pediatric 02/17/2013 completed Korin reyes [facility] 04/09/2023 14:12:24 Influenza, recombinant, quadrivalent, PF 05/31/2020 completed Korin Allar null, [facility] 04/09/2023 14:12:24 Influenza, recombinant, quadrivalent, PF 02/01/2021 completed Korin Allar null, [facility] 04/09/2023 14:12:24 Influenza, recombinant, quadrivalent, PF 03/18/2019 completed Korin Allar null, [facility] 04/09/2023 14:12:24 zoster recombinant 05/31/2020 completed Korin Al lar null, [facility] 04/09/2023 14:12:24 zoster recombinant 02/01/2021 completed Korin Al lar null, [facility] 04/09/2023 14:12:24 Tdap 10/02/2011 completed Korin Allar null, [facility] 04/09/2023 14:12:24 Influenza, split virus, trivalent, preservative 04/27/2010 completed Korin Allar null, [facility] 04/09/2023 14:12:24 Influenza, split virus, trivalent, PF 01/15/2011 completed Korin Allar null, [facility] 04/09/2023 14:12:24 Td (adult), 2 Lf tetanus toxoid, preservative free, adsorbed 05/23/2021 completed Korin Allar null, [facility] 04/09/2023 14:12:24 Td (adult), 2 Lf tetanus toxoid, preservative free, adsorbed 05/28/2001 completed Korin Allar null, [facility] 04/09/2023 14:12:24 Hep B, adult 01/11/2020 completed Korin Allar null, [facility] 04/09/2023 14:12:24 Influenza, split virus, quadrivalent, PF 01/30/2018 completed Korin Allar null, [facility] 04/09/2023 14:12:24 Influenza, split virus, quadrivalent, PF 03/23/2014 completed Korin Allar null, [facility] 04/09/2023 14:12:24 Past Encounters Encounter ID Performer Location Encounter Start Date Encounter Closed Date Diagnosis/Indication Diagnosis SNOMED-CT Code Diagnosis ICD10 Code [id number] MD NANCY [facility] [address] [place], [place] [address] 01/01/2022 11:10:54 01/04/2022 16:59:32 Microscopic hematuria 285029354 R31.[address] ress incontinence 95164414 N39.3 Overactive urinary bladder 622040117 N32.81 [id number] Flavio Morales MD [facility] [address] [place] [address] 06/25/2022 12:03:25 06/26/2022 13:47:53 Overactive urinary bladder 584368808 N32.81 Microscopic hematuria 19 9268606 R31.29 Female str ess incontinence 37976940 N39.3 Health Concerns Section Related Observation LastModified by Organization Detai ls LastModified Time None Recorded Concern Status LastModified by Organization Details LastModified Time None Recorded Advance Directives Directive None Recorded Payers Encounter Date Sequence Insurance Name Policy Number Policy Bonilla Covered Member ID Bonilla Member ID Guarantor Name 01/01/2022 1 [employer] - INDIVIDUAL AND FAMILY (O) [id number] 1 Aileen Sloan [id number] Aileen Sloan 06/25/2022 1 [employer] - INDIVIDUAL AND FAMILY (O) [id number] 1 Aileen Alassley [id number] Aileen Sloan Notes Date Note Type Note [...] have positive stress test Flavio Morales MD [address] [place] [address],[address] [place] [address], [address], [facility] [place] [facility] 01/03/2022 17:56:51 06/25/2022 text/html HPI Notes: [...] stones -HTN, -asthma -IBS Flavio Morales MD [address] [place] [address],[address], [place], [address], [facility] 06/25/2022 12:28:57 OBGyn Episode No OBEpisode recorded.
--- OUTSIDE RECORDS SUMMARY | 2024-02-18 15:07 | XMS_ITS | Continuity of Care Document ---
Author Organization [facility] Address [address] [place] [address] [place] [address] Phone Care Team Providers Care Manual Equipment Mechanic Name Role Phone Will Celestino MARTINEZ Unavailable [...] tablet - Active Flonase 50 mcg/actuation Nasal [place] - Active dicyclomine 10 mg capsule - Active Procedures Procedure Date OFFICE CONSULTATION Advance Directives Directive Yes / No Effective Date File Name No Information Encounters Encounter Description Practice Location Reason(s) For Visit Diagnoses Date Provider Providers Copied on Encounter [facility], [address] [place] [address], [id number] , [place] tel:[phone] [facility] [place] No Information 2 Will Celestino. [address] [facility] [place], [place], [id number] , [place]. tel:[phone] OFFICE CONSULTATION [facility], [address] [facility] [place], [id number] , [place] tel:[phone] [facility] Molly widespread pain (chief complaint) LumbagoCervicalgiaP ain in joint involving ankle and footMyalgia and myositis, unspecifiedPain in joint involving shoulder regionPain in joint involving pelvic region and thighDepressionHype rtension, Benign 3 Devin Dunnw. [address] [place], [id number] , . tel:[phone] Referring Provider: Celestino Garcia, [address] [place], [address] . tel:[phone] Family History Family Member Type Diagnosis Age At Onset No Information Payers Payer name Insurance type Covered democrat ID Authoriza tion(s) No Information Social History [...]
--- OUTSIDE RECORDS SUMMARY | 2024-02-18 15:07 | XMS_ITS | Clinical Summary ---
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[employer] Gender Identity Not on file Sexual Orientation [...] Advance Directives For more information, please contact: [phone] * Full Code (Latest Code Status on File) Date Activated Date Inactivated Comments 10/09/2020 2:28 PM 10/10/2020 1:54 PM All basic an d advanced life-sustaining interventions are performed as appropriate Post op Question Answer Comments Code status determined by: Other (please linda t) Care Teams Tank Farm Attendant Relationship Specialty Start Date End Date Lyndsey Guzman MD [facility] [address] [address] PCP - General Family Medicine 08/28/20
--- OUTSIDE RECORDS SUMMARY | 2024-02-18 15:07 | XMS_ITS | Clinical Summary ---
Author Organization [facility] Address [place], [place] [address] Care Team Providers Care Typing Secretary Name Role Phone Eufemia Garcia PA-C Primary Care Provider Allergies Active Allergy Reactions Criticality Noted Date Comments Latex Rash 01/27/2024 Nickel Rash 01/27/2024 Medications Medication Sig Dispensed Refills Start Date End Date Status fluticasone (FLOVENT HFA) 220 mcg/Actuation inhaler Inhale 1 Puff by mouth 2 times daily. 1 Inhaler 3 01/15/2011 Active LORazepam (ATIVAN) 0.5 mg Tab Take 1 tablet by mouth every 6 hours if needed. 30 tablet 0 04/30/2011 Active Additional Information Patient taking differently:0.5 mg OralDAILY, Reported on 05/19/2015 metoprolol succinate (TOPROL XL) 50 mg sustained-release tablet Take 50 mg by mouth once daily. Active albuterol HFA (PRO-AIR,VENTOLIN, PROVENTIL) 90 mcg/actuation inhaler Inhale 1-2 Puffs by mouth 4 times daily if needed. Active valACYclovir (VALTREX) 500 mg tablet Take 500 mg by mouth 3 times daily. PRN only Active oxyCODONE-acetamin ophen, 5-325 mg, (PERCOCET) 5-325 mg per tabletIndications: Lateral epicondylitis of left elbow Take 1-2 tablets by mouth every 4 hours if needed for Pain. Max acetaminophen dose: 4000mg in 24 hrs. 30 tablet 0 05/24/2015 Active hydrOXYzine pamoate (VISTARIL) 25 mg capsuleIndications :Lateral epicondylitis of left elbow Take 1 capsule by mouth every 8 hours if needed for Itching (nausea). 30 capsule 0 05/24/2015 Active aspirin 81 mg cap Take 81 mg by mouth once daily. Active rosuvastatin (CRESTOR) 40 mg tablet Take 40 mg by mouth once daily. Active SITagliptin phosphate (Januvia) 50 mg tablet Take 50 mg by mouth once daily. Active montelukast sodium (SINGULAIR ORAL) Take by mouth. Acti ve SUMAtriptan (IMITREX) 50 mg tabletIndications: Migraine, unspecified, without mention of intractable migraine without mention of status migrainosus Take 1 tablet by mouth every 2 hours if needed for Migraine. Max dose: 200mg per 24 hrs. 12 tablet 2 04/30/2011 01/27/20 24 Discontinu ed(*Allerg ic/Adverse Rxn/Side Effects) clopidogreL (Plavix) 75 mg tablet Take 75 mg by mouth once daily. 01/27/20 24 Discontinu ed(*Med complete/R egimen complete/L evel of care change) Active Problems Problem Noted Date Diagnosed Date Pain medication agreement 07/06/2010 Fibromyalgia 05/15/2010 INSOMNIA NEC 09/03/2000 DEPRESSION, NEUROTIC 09/03/2000 Encounters Date Type Department Care Team Description 01/27/2024 2:30 PM CDT Office Visit [facility] [address] [place] [address] Maricruz Berger NP Follow Up (stroke) 01/27/2024 Travel 01/23/[address] [facility] [address] [place] [phone] Maricruz Berger NP Appointment 01/12/[address] [facility] [address] [place] [phone] Maricruz Berger NP Hospital F/U 01/09/2024 Orders Only [facility] [address] [place] [address] Siobhan Duarte 1 scan: (1-Ord) [place] 12/27/2023 Orders Only [facility] [address] [place] [address] Eufemia Garcia PA-C 1 scan: (1-Ord) ZIO REPORT 12/03/2023 9:30 AM CDT Ancillary Procedure [place] [facility] [address] [place] [address] 12/03/2023 Orders Only [facility] Scanner 1 scan: (1-Ord) [facility], PRELIM ECHOL, 12/03/2023 12/03/2023 Orders Only [facility] Scanner 1 scan: (1-Ord) [facility], ECHO, 12/03/2023 12/02/2023 Orders Only [facility] Scanner 1 scan: (1-Ord) [place], MR HEAD/BRAIN WO CON, 12/02/2023 12/02/2023 Office Visit [facility] [address] [facility] [address] [place] [address] Rajeev Lebron MD Telehealth (Telestroke - [facility] IP) 12/01/2023 Orders Only [facility] Scanner 1 scan: (1-Ord) UNKNOWN FACILITY, EKG, 12/01/2023 12/01/2023 Orders Only [facility] Scanner 1 scan: (1-Ord) [place], CT HEAD/BRAIN WO CON, 12/01/2023 12/01/2023 Orders Only [facility] Scanner 1 scan: (1-Ord) [place], CT ANGIO NECK, 12/01/2023 12/01/2023 Orders Only [facility] Scanner 1 scan: (1-Ord) [place], CT ANGIO HEAD, 12/01/2023 12/01/2023 Orders Only [facility] Scanner 1 scan: (1-Ord) [place], MR HEAD/BRAIN WO CON, 12/01/2023 from Last 3 Months Immunizations Name Administration Dates Next Due Influenza, IIV3 (Age >=3 years) 01/15/2011,04/27 Td (Age >=7 Years) 01/13/2008 Family History Medical History Relation Name Comments Cancer Father testicular Diabetes Maternal Grandfather Cancer Paternal Grandfather lung Relation Name Status Comments Father Maternal Grandfather Paternal Grandfather Social History Tobacco Use Types Packs/Day Years Used Date Smoking Tobacco: Former Cigarettes Q uit: 12/28/2023 Smokeless Tobacco: Never Tobacco Cessation:Counseling Given: Not Answered Comments:pamphlet given Alcohol Use Standard Drinks/Week Comments [...] Sign Reading Time Taken Comments Blood Pressure 149/81 01/27/2024 2:41 PM CDT Pulse 86 01/27/2024 2:41 PM CDT Temperature 36.3 ??C (97.3 ??F) 05/24/2015 1:41 PM CS T Respiratory Rate 16 05/24/2015 2:50 PM TOOL PROCUREMENT COORDINATOR Oxygen Saturation 96% 05/24/2015 2:50 PM TOOL PROCUREMENT COORDINATOR Inhaled Oxygen Concentration - - Weight 81.2 kg (179 lb) 01/27/2024 2:43 PM CDT s tated Height 167.6 cm (5' 6) 01/27/2024 2:43 PM CDT Body Mass Index 28.89 01/27/2024 2:43 PM CDT Plan of Treatment Health Maintenance Due Date Last Done Comments Tdap 1980 Depression screening for age 12+ 1981 HIV for age 15-65 1984 Hepatitis C screening for age 18-79 07/13/1987 Colonoscopy through age 75 2014 Mammogram for age 45-75 2014 Lipids for age 45-75 05/22/2015 05/22/2010 Tetanus booster 01/12/2018 01/13/2008 Zoster (shingles) series for age 50+ (1 of 2) 07/13/2019 Pap test for age 21-65 05/31/2023 , 05/31/2020, 04/29/2017, Additional history exists COVID-19 vaccine series ( season) 2023 Influenza for age 50-64 12/14/2023 01/15/2011, 04/27 BMI (ht and wt on same day) for age 18+ 01/26/2025 01/27/2024 Pneumococcal series for age 6-64 Aged Out No longer eligible based on patient's age to complete this topic Medical Devices Implanted Type Area Cleaning Validation Consultant Device Identifier Shelf Expiration Date Model / Serial / Lot Ancr Sut 2.4x8.5mm Suturetak Micro W/2-0 [employer] - [id number] Implanted:Qty: 1 on 05/24/2015 by Jon Mcpherson MD at [facility] Left: Elbow [employer] 01/11/2017 [id number] CNF # / / [id number] Procedures Procedure Name Priority Date/Time Associated Diagnosis Comments EXTENDED HOLTER Routine 01/12/2024 Impending cerebrovascular accident (HC) EXTENDED HOLTER Routine 12/10/2023 Cerebral infarction, unspecified (HC) ECHO TTE COMPLETE WO CONTRAST W BUBBLE Routine 12/03/2023 11:23 AM CDT Stroke (cerebrum) (HC) SCAN-ECHOCARDIOGRAM INTERPRETATION 12/03/2023 12:00 AM CDT SCAN-ECHOCARDIOGRAM INTERPRETATION 12/03/2023 12:00 AM CDT SCAN-MRI INTERPRETATION 12/02/2023 12:00 AM CDT SCAN-ELECTROCARDIOGRA M EKG 12/01/2023 12:00 AM CDT SCAN-CT INTERPRETATION 12/01/2023 12:00 AM CDT SCAN-CT INTERPRETATION 12/01/2023 12:00 AM CDT SCAN-CT INTERPRETATION 12/01/2023 12:00 AM CDT SCAN-MRI INTERPRETATION 12/01/2023 12:00 AM CDT DIET ASSISTANT THIN PREP PAP SCREEN IMAGED Routine 05/31/2020 2:30 PM TOOL PROCUREMENT COORDINATOR LIPID PANEL W REFLEX MEASURED LDL Routine 05/22/2010 10:05 AM TOOL PROCUREMENT COORDINATOR Screening for lipoid disorders from Last 3 Months or Most Recently Relevant to Health Maintenance Results * EXTENDED HOLTER (01/12/2024) Eufemia Garcia PA-C CARDIAC SERVICES ORD * EXTENDED HOLTER (12/10/2023) Eufemia Garcia PA-C CARDIAC SERVICES ORD * ECHO TTE COMPLETE WO CONTRAST W BUBBLE (12/03/2023 11:23 AM CDT) AORTIC VALVE MEAN PG 6 mmHg EJECTION FRACTION 66 % LVEDD 4.4 cm Anatomical Region Laterality Modality Ultrasound 12/03/2023 10:4 7 AM CDT Narrative 12/03/2023 11:36 AM CDT ECHOCARDIOGRAM RUBY CHRISTIAN ? Accession#: ?? [id number] : ?1970 53 years Study Date: ?? 12/03/2023 10:47:28 AM Gender: F ?BP: ? 106/78 mmHg Height: 168.00 cm ?BSA: ?1.87 m? ? ? Weight: 77.00 kg ? Tech: ? MJW ? Referring MD: ALCIDES LEAL Site: ? [facility] Reading Location: [facility] Patient Location: Outpatient. Procedure: 2D w/ Bubbles, [...] . This study was interpreted by an [facility] accredited facility. CC: Med/Surg - IP [facility], HIM (med records) [facility]. ??Final ?? Procedure Note oRb Stephens MD - 12/03/2023 ECHOCARDIOGRAM RUBY CHRISTIAN : 1970 53 years Study Date: 12/03/2023 10:47:28 AM Gender: F BP: 106/78 mmHg Height: 168.00 cm BSA: 1.87 m? ? ? Weight: 77.00 kg Tech: MYLA Referring MD: ALCIDES LEAL Site: [facility] Reading Location: [facility] Patient Location: Outpatient. Procedure: 2D w/ Bubbles, [...] . This study was interpreted by an [facility] accredited facility. CC: Med/Surg - IP [facility], HIM (med records) [facility]. Final Alcides Leal MD ECHO ORD * SCAN-ECHOCARDIOGRAM INTERPRETATION (12/03/2023 12:00 AM CDT) Only the most recent of2 resultswithin the time period is included. Anatomical Region Laterality Modality Other Scanner OTHER * SCAN-MRI INTERPRETATION (12/02/2023 12:00 AM CDT) Only the most recent of2 resultswithin the time period is included. Anatomical Region Laterality Modality Other Scanner OTHER * SCAN-CT INTERPRETATION (12/01/2023 12:00 AM CDT) Only the most recent of3 resultswithin the time period is included. Anatomical Region Laterality Modality Other Scanner OTHER * SCAN-ELECTROCARDIOGRAM EKG (12/01/2023 12:00 AM CDT) Scanner OTHER * DIET ASSISTANT THIN PREP PAP SCREEN IMAGED (05/31/2020 2:30 PM TOOL PROCUREMENT COORDINATOR) Case Report Gynecologic Cytology Report ? Case: [id number] ? Authorizing Provider: ??Unknown, Doctor ?Collected: ? 05/31/2020 1430 ? Ordering Location: ? [facility] ?Received: ?06/02/2020 0811 ? First Screen: ?Denzel Romero ? Specimen: ?DIET ASSISTANT ThinPrep Vial Screening, Cervical/Vaginal ? 06/10/2020 1:27 PM [facility] ENTRAL LABORATORY INTERPRETATION/ RESULT NEGATIVE FOR INTRAEPITHELIAL LESION OR MALIGNANCY (NIL) (none) 06/10/2020 1:27 PM [facility] ENTRAL LABORATORY IMEN ADEQUACY Satisfactory for evaluation Endocervical component present 06/10/2020 1:27 PM [facility]- ENTRAL LABORATORY HPV REQUEST HPV and PAP 06/10/2020 1:27 PM [facility]- ENTRAL LABORATORY Menstrual Status 06/10/2020 1:27 PM [facility] ENTRAL LABORATORY Comment:Menopause Additional Information 06/10/2020 1:27 PM [facility] ENTRAL LABORATORY Comment: Interpreted at [facility] [employer] [facility] Central Laboratory - [address], [place] [address] Automated Review Successful 06/10/2020 1:27 PM [facility] ENTRAL LABORATORY Comment:Specimen processed s uccessfully by automated business consult device, ThinPrep Imaging System, [employer] ANCILLARY TESTING DIET ASSISTANT HPV Ordered, Please see separate report 06/10/2020 1:27 PM TOOL PROCUREMENT COORDINATOR [facility] ENTRAL LABORATORY Note The pap test [...] pre-malignant and malignant lesions. 06/10/2020 1:27 PM TOOL PROCUREMENT COORDINATOR [facility]- ENTRAL LABORATORY Other (Cervical/Vagina l) 05/31/2020 2:30 PM TOOL PROCUREMENT COORDINATOR 06/02/2020 8:11 AM TOOL PROCUREMENT COORDINATOR Doctor Unknown [facility] [address] [place] [address], * (ABNORMAL) LIPID PANEL W REFLEX MEASURED LDL (05/22/2010 10:05 AM TOOL PROCUREMENT COORDINATOR) CHOLESTEROL,TOTAL 110 110 - 199 mg/dL [facility] TRIGLYCERIDES 38(L) 40 - 149 mg/dL [facility] HDL CHOLESTEROL 43 >40 mg/dL [facility] CHOL/HDL RATIO 2.56 <4.51 [facility] LDL CHOLESTEROL 59 <131 mg/dL [facility] PATIENT STATUS Fasting [facility] Blood specimen (specimen) BLOOD SPECIMEN / Unknown 05/22/2010 10:05 AM TOOL PROCUREMENT COORDINATOR 05/22/2010 9:33 AM TOOL PROCUREMENT COORDINATOR Norberto Nicholson MD CHEMISTRY [facility] INTERNAL ZIP [address] [place] [id number] from Last 3 Months or Most Recently Relevant to Health Maintenance Advance Directives * Full Code (Latest Code Status on File) Date Activated Date Inactivated Comments 05/24/2015 1:33 PM 05/24/2015 5:10 PM * Full Code Date Activated Date Inactivated Comments 05/24/2015 10:17 AM 05/24/2015 1:33 PM Care Teams Typing Secretary Relationship Specialty Start Date End Date Eufemia Garcia PA-C [address] [place] [address] PCP - General Emergency Medicine 01/27/24
== END 2024-02-18 15:04 | disposition home or self-care (01) ==
LOC: LKVREF 15:05
PROVIDERS: PCP Physician Assistant Medical; Visit Provider Physician Assistant Medical
DX: E11.9 Type 2 diabetes mellitus without complications (principal); R35.0 Frequency of micturition
CPT/HCPCS: 82043; 82570; 87086

== ENCOUNTER 2024-04-05 07:45 | Outpatient (RCR) | payer MEDICAID, SELFPAY ==
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
--- NOTE | 2024-01-12 10:46 | PT.OPE ---
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 when drains came out on then got infection, left breast was swollen and split open. have been on antibiotics just finished. on was walking in [place] got dizzy, nausea, started projectile vomiting. went to bed got up 3am and couldnt walk straight, mom took me to ED, PT came and saw me and said it was not vertigo so they had to do 2 MRI bc the post in my teeth or something. was in hospital x 3 days. tox screen came back + for amphetamines and all kinds of stuff I never took. I did have a THC gummy my friend gave me 2 days before that must have been laced. I have quit smoking Had 2 rhizotomies in October for back pain which has been worse again lately think is piriformis. didnt have PT i have a home ex program and have seen chiro was walking 1-3 miles/ week and feel it is ok, last few days dizzy with getting up feel unbalanced but having light on helps. have almost fallen x2 son gets maried 10/ so need to be good for that. just finally got neuro referral, haev been withotu plavix for 5 days and jenuvia x 3 days bc miscommunication btwn doctor and pharmacy. my L UE gets cold and have less sensation in arm, hands and fet always cold. after stroke was pushing to R was using 4WW in hospital and was supposed to get one for home but the place to get walker didnt get order until a month later. have 5# lift limit see surgeon tomorrow raul Brian. PER EMR: hospitalist H&P 12/01/23 [place] she suddenly had a sensation of flushing, a starburst pattern in her left eye and her right nose was burning like she ?inhaled some chlorine at a pool.? She felt dizzy and suddenly nauseated. She started vomiting and says that she vomited for quite a while at [employer] before she was able to leave and get into her car. left eye has trouble focusing especially while looking straight ahead but seems to improve when she is lying on her right side. She said that she typically does not use any recreational drugs , but did have a marijuana gummy last . Hospital DC note 12/03/23 Brain MRI shows left cerebellar infarct. Stroke Neurology consult at [facility]. See chart notes for details. Outpatient PT and OT recommended. Four wheeled walker until her balance improves. No driving until medical follow-up as outpatient. Stroke Neurology follow-up in 8 weeks. Aspirin and Plavix for 1 month and then aspirin alone indefinitely. Rosuvastatin. Outpatient Zio patch for detection of occult AFib. Pain Comments low back pain and cramp with walking. 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 Precautions Treatment Precautions/Contraindications per EMR: diabetes mellitus type 2, migraine headaches, GERD, renal insufficiency, hypertension, fibromyalgia, and anxiety who had sudden onset of ataxia and vomiting Therapy Limitations/Systems Review Affect,Cognition,Vision Objective Range of Motion cervical flex and ext WNL - ext results in trunk sway and feeling of off balance. Strength MMT seated Hip fex, quad, HS, eversion ,inversion, PF and DF R all 4+/5 L hip flex 3+/5 with lateral lean, quad and HS 4-/5. eversion inversion PF DF 4/5. EHL 4/5 UE not assessed as patient also seeing OT Palpation not assessed this date Balance & Gait low guard no assistive device. LOB with right head turn ( limited to 30 degrees, further cervical assess to follow). turns as a whole unit. does wall surf with increased speed . LOB with head turn in gait Unable to balance SLS or tandem on L. LOB with eyes closed NBOS Posture seated braces w UE, head forward, leans. WB in standing more R Other/Pertinent Objective Horizontal nystagmus not affected with head thrust. positional testing not applied this date though could be horizontal canal in addition to cerebellar stroke. Does not appear this was tested in ED, only [facility] Swathi. hyperverbal with convoluted timeline and sequence of events. dynamic vision impaired. L eye blinks slowly, slightly less tone in left side of face noted. decreased tracking of L eye with convergence. did not test eyes separately. gaze stab at slow Hz increases symptoms does not tolerate 12o Hz testing. Functional Test Performed & Score Tinetti Balance Assessment Tool Summary 1. Sitting balance: Sitting balance is steady, safe (1 points) 2. Rises from chair: Rises from chair using arms to help (1 points) 3. Attempts to rise: Rises from chair with 1 attempt (2 points) 4. Immediate standing balance (first 5 seconds): Steady immediate standing balance (with support) (1 points) 5. Standing balance: Steady standing balance (with support and wide stance) (1 points) 6. Nudged: Steady when nudged (2 points) 7. Eyes closed: Begins to fall when nudged (0 points) 8. Turning 360?: Continuous steps when turning 360? (1 points) 8. Turning 360?: Unsteady when turning 360? (0 points) 9. Sitting down: Safe, smooth motion when sitting down (2 points) Balance score: 11/16=68.8 percent. Graphical Balance score: 10. Indication of gait ( immediately after told to go.) : No hesitancy initiating gait (1 points) 11.a. Step length and height: Right foot passes left stance foot (1 points) 11.b. Step length and height: Left foot passes right stance foot (1 points) 11.c. Step length and height: Right foot completely clears floor with step (1 points) The tools listed on this website do not substitute for the informed opinion of a licensed physician or other health care provider. All scores should be re- checked. Please see our full Terms of Use. 11.d. Step length and height: Left foot completely clears floor with step (1 points) 12. Step Symmetry: Right and left step appear equal (1 points) 13. Step Continuity: Steps appear continuous (1 points) 14. Path: Mild/moderate path deviation or uses walking aid (1 points) 15. Trunk: Flexion of knees or back, or spreads arms while walking (1 points) 16. Walking stance: Walks heels apart (0 points) Gait score: 12/24=75.0 percent. Graphical Gait score: Total Tinetti score: =71.4 percent Assessment Assessment/Impression Patient is very verbous 53 yo female referred s/p cerebellar infarct on 11/30. She went to ED ~ 12 + hours after onset of symptoms reported to therapist as dizziness, unsteady, nausea and projectile vomiting. Patient's report of subjective is convoluted and at times contradictory but unclear whether this is misspeak or cognitive impairment. She is also referred to our colleagues in OT. She had had procedure for removal of old breast implants 11/13/23, developed infection where left breast was swollen and split open'. states this was MRSA and has been on antibiotics for this. on drains came out, on 11/30 was in [place] and felt dizzy, nauseous, projectile vomited. at 3am woke and couldnt walk straight, at 5:45 am her mother took her to [facility] ED. She was seen in ED by PT and determined this was not positional vertigo via [place]. She had 2 MRIs and was admitted x 3 days, was DC with recommendations for 4WW but states she just got this last week or so. Also states she has been off her Plavix x 5 days and Jenuvia x 3 days due to pharmacy and provider communication. 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 Patient presents with impaired balance, impaired L sided facial mobility (slowed blink reflex, delayed and insufficient L eye movement loly noted w convergence), impaired gaze stab and VOR cancellation, impaired gait with lowguard posturing and decreased L side awareness as well as weakness of left side. She is appropriate for skilled physical therapy to address above limitations and return to prior level of function as fully as she can. For followup: cervical mobility limitation loly R rotation- mechnanical vs neural Plan of Care Rehabilitation Potential Good Rehabilitation Potential Comments comorbidities of obestiy, diabetes mellitus, has been off blood thinners, compliance , and recovery from cerebellar stroke. Physical Therapy Goals STG meet 2-3 weeks 1) Pt demo I HEP and self care/home mgmt techniques for balance/falls adaptation, safety measures, and home safety improvements including picking up throw rugs, night light or commode, and use of gait aid as appropriate. 2) Pt report no falls in 6 week period. 3) Patient to demonstrate ability to ambulate safely on uneven ground with no or least restrictive gait aid. LTG meet 4-8 weeks 1)Pt demo ability ascend/ descend stairs carrying basket with use of 1 rail x 13 steps no evidence of imbalance for access to basement living level with no evidence of imbalance. 2) Pt demo ability to pass balance testing (SLS, DGI, Fukuda etc) out of high fall risk. 3) Pt demo appropriate gait pattern with no evidence of lack of balance with perturbations internal and external for shopping, community ambulation with least restrictive or no gait aid. 4) Patient to demo ability to safely and confidently negotiate curb with no or least restrictive gait aid. Coordination/Communication With Referral Source Treatment Plan/Direct Interventions Gait Training,Manual Therapy, Neuromuscular Re-ed,Self-Care/ Home Management,Therapeutic Activities,Therapeutic Exercises Frequency/Duration 1x/ week x 6 visits then reassess Patient Will Be Discharged From Therapy Completion of LTG(s),Skills Plateau,Independent w/HEP, Independently Progressing Evaluation Billing Untimed Code Treatment Minutes 45 Complexity Moderate Certification Information Initial Certification Date 01/08/24 Ending Certification Date 04/06/24 Provider Signature Required Yes Provider Signature Shows Agreement With POC & Medical Necessity Physician NPI Number Write NPI# Here Physician Comment/Change : Physician Signature & Date Requested Please Sign/Date Here
--- NOTE | 2024-02-18 09:18 | PT.OPDN ---
PT [facility] Daily Note PT [facility] Daily Note Start: 01/08/24 17:50 Freq: Status: Active Protocol: Document 02/17/24 15:08 BMS (Rec: 02/17/24 15:26 BMS [id number]) E-signed By Rosie Estevez, PT PT OP Daily Progress Note Visit Information Note Type Daily Note,Recert/Progress Note Visit Number 6 Insurance Authorized Visits no auth no visit limit per EMR referral tab Insurance Information Recert Due Date 04/06/24 Insurance Information/Comments [facility] Medicaid Medical Diagnosis cerebellar stroke R42 dizziness and giddiness Cerebral infarction I63.9 Treating Diagnosis imbalance unsteady gait R26.81 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 Drove , and yesterday for hours. It ached when I had it on the steering wheel too now I think about it. Did a lot of reading this morning and now is hard to focus. No, it does not feel at all like when I had the stroke Precautions Treatment Precautions/Contraindications per EMR: diabetes mellitus type 2, migraine headaches, GERD, renal insufficiency, hypertension, fibromyalgia, and anxiety who had sudden onset of ataxia and vomiting Home Exercise Home Exercise Comments add HEP including piriformis stretches in fig 4 supine and seated as well as cross body piriformis stretch Access Code: [email or web address] URL: [email or web address] Date: 01/08/2024 Prepared by: Rosie Estevez Exercises - Seated Horizontal Smooth Pursuit - 2-3 x daily - 5-7 x weekly - 1-3 sets - 10-20 reps - Standing Tandem Balance with Counter Support - 2-3 x daily - 5-7 x weekly - 1-3 sets - hold 30-60 sec stretch - Standing Single Leg Stance with Counter Support - 2-3 x daily - 5-7 x weekly - 1-3 sets - hold 30-60 sec stretch Objective Other/Pertinent Objective 135/81, SpO2 96% pulse 82 L shoulder flex 170, ER limited L=R MMT L shoulder flex, abduct, ER all 4/5. B lorenza hallpike and horizontal canal testing (-) convergence 1st trial 12 improved to 4 after 5 repetitions smooth pursuits ok, target saccade ok easily distracted and loses smooth pursuit due to patient talking able to focus when directed. no pupillary difference detected, appropriate contract /dilation w light/dark FAST (-) nose to finger (-) JAX UE and LE (-) point past point (-) balance unable to balance SLS on L without UE or therapist assist but does not fall. uses appropriate strategy with perturbations dependent on direction and amplitude of perturbation. more difficulty noted with internal perturbations. Patient Instructed in Risks/Benefits Yes Therapeutic Exercise Therapeutic Exercise Minutes (minutes) 27 Therapeutic Exercise: To Restore Access Code: [email or web address] Functional Status URL: [email or web address] Date: 02/17/2024 Prepared by: Rosie Estevez Exercises - Shoulder External Rotation with Anchored Resistance - 1- 3 x daily - 5-7 x weekly - 1-3 sets - 10-20 reps - strength: 5-10 sec hold - Shoulder Internal Rotation with Resistance - 1-3 x daily - 5-7 x weekly - 1-3 sets - 10-20 reps - strength: 5-10 sec hold - Shoulder extension with resistance - Neutral - 1-3 x daily - 5-7 x weekly - 1-3 sets - 10-20 reps - strength: 5-10 sec hold - Standing Isometric Shoulder Abduction with Doorway - Arm Bent - 1-3 x daily - 5-7 x weekly - 1-3 sets - 10-20 reps - strength: 5-10 sec hold ROM and MMT testing. Neuromuscular Re-Ed Neuromuscular Reeducation Minutes ( 12 minutes) Neuromuscular Reeducation Comments testing of smooth pursuits, convergence, divergence, target shooting, JAX UE and LE , BP, SpO2 and pulse as well as FAST stroke screen due to onset of symptoms. also tested Lorenza B and B horizontal. Treatment Minutes Timed Code Treatment Minutes 39 Total Treatment Time 39 Billing Units Neuromuscular Reeducation Units 1 Therapeutic Exercise Units 2 Assessment/Impression Assessment/Impression patient demo good ability to perform UE ther ex. Patient needed to leave early in order to make her [facility] driving assessment appt. patient today presents with vestibular deficit again but unable to elicit directional nystagmus. Arm achiness appears to be related to her driving 4 hours yesterday when unaccustomed to arm doing that amount of work. She does present with 4/5 strength in flex, abduct and ER but poss related to soreness. Tolerated session well, BP slightly elevated but not in alarming range. Patient reports she has quit smoking and her ex that she spent the weekend with ' smokes outside', did reiterate increased stroke risk with smoking exposure. balance continues to improve though bending forward and standing back up is impaired. Patient is appropriate to continue skilled physical therapy through end of Nov to maximize gains, plan to DC if I with all goals at that time. Plan of Care Physical Therapy Goals STG meet 2-3 weeks met 1) Pt demo I HEP and self care/home mgmt techniques for balance/falls adaptation, safety measures, and home safety improvements including picking up throw rugs, night light or commode, and use of gait aid as appropriate. not met 2) Pt report no falls in 6 week period. variable 3) Patient to demonstrate ability to ambulate safely on uneven ground with no or least restrictive gait aid. LTG meet 4-8 weeks 1)Pt demo ability ascend/ descend stairs carrying basket with use of 1 rail x 13 steps no evidence of imbalance for access to basement living level with no evidence of imbalance. 2) Pt demo ability to pass balance testing (SLS, DGI, Fukuda etc) out of high fall risk. 3) Pt demo appropriate gait pattern with no evidence of lack of balance with perturbations internal and external for shopping, community ambulation with least restrictive or no gait aid. met 4) Patient to demo ability to safely and confidently negotiate curb with no or least restrictive gait aid. Daily Plan of Care Continue per POC
--- OUTSIDE RECORDS SUMMARY | 2024-03-25 08:25 | XMS_ITS | Data Portability ---
Author Organization [facility], [facility] Address [address] [place] [address] Care Team Providers Care Lbd Teacher Name Role Phone WOLF BANSAL Primary Care Provider Assessment No assessment recorded. Plan of Treatment Reminders Order Date Submit Date Provider Last Modified By Organization Details Last Modified Time Details Appointments None recorded. Lab urinalysi s, dipstick 2021 022 abajema [facility], [address], [place], [address], 2 12:42:04 urinalysi s, dipstick 2022 023 [email or web address] [facility], [address], [place], [address], 3 12:28:23 Referral physical therapist referral - referral for stress incontine ce 2021 022 clif Olmos, [address] [facility], [place], [address], 2 08:23:08 physical therapist referral 2022 023 clif Olmos, [address] [place], [address], 3 07:32:43 Procedures None recorded. Surgeries None recorded. Imaging CT, abdomen + pelvis, w/ contrast - [facility]rogram phase 2021 [facility]22 [facility], [address], [place], [address], 2 17:33:27 Medication Orders trospium 20 mg tablet 2022 023 brit [id number], [address] [facility], [place], [place], [phone], 3 12:28:23 Patient TargetsNo targets recorded. Patient [...] Available [facility] [address], [place], [address], 01/01/2022 11:52:48 01/02/20 22 01/01/2022 urina lysis , dipst ick Clarity-Stat us Clear Not Available [facility] [address], [place], [address], 01/01/2022 11:52:48 01/02/20 22 01/01/2022 urina lysis , dipst ick Glucose-Stat us Negati ve Not Available [facility] [address], [place], [address], 01/01/2022 11:52:48 01/02/20 22 01/01/2022 urina lysis , dipst ick Bilirubin-St atus Negati ve Not Available [facility] [address], [place], [address], 01/01/2022 11:52:48 01/02/20 22 01/01/2022 urina lysis , dipst ick Ketones-Stat us Negati ve Not Available [facility] [address], [place], [address], 01/01/2022 11:52:48 01/02/20 22 01/01/2022 urina lysis , dipst ick Sp [place]-Stat us 1.020 Not Available [facility] [address], [place], [address], 01/01/2022 11:52:48 01/02/20 22 01/01/2022 urina lysis , dipst ick pH-Status 5.5 Not Available [facility] [address], [place], [address], 01/01/2022 11:52:48 01/02/20 22 01/01/2022 urina lysis , dipst ick Urobilinogen -Status 0.2 Not Available [facility] [address], [place], [address], 01/01/2022 11:52:48 01/02/20 22 01/01/2022 urina lysis , dipst ick Nitrates-Sta tus negati ve Not Available [facility] [address], [place], [address], 01/01/2022 11:52:48 01/02/20 22 01/01/2022 urina lysis , dipst ick Blood-Status Negati ve Not Available [facility] [address], [place], [address], 01/01/2022 11:52:48 01/02/20 22 01/01/2022 urina lysis , dipst ick Leuko-Status Negati ve Not Available [facility] [address], [place], [address], 01/01/2022 11:52:48 01/02/20 22 01/01/2022 urina lysis , dipst ick Specimen Type Voided Not Available [facility] [address], [place], [address], 01/01/2022 11:52:48 01/02/20 22 01/01/2022 urina lysis , dipst ick Performed by Wolf Frey RN Not Available [facility] [address], [place], [address], 01/01/2022 11:52:48 01/02/20 22 01/01/2022 urina lysis , dipst ick Total Urine Volume 20cc Not Available [facility] [address], [place], [address], 01/01/2022 11:52:48 06/26/19 23 06/25/2022 urina lysis , dipst ick Color-Status Yellow Not Available [facility] [address], [place], [address], 06/25/2022 12:08:56 06/26/19 23 06/25/2022 urina lysis , dipst ick Clarity-Stat us Clear Not Available [facility] [address], [place], [address], 06/25/2022 12:08:56 06/26/19 23 06/25/2022 urina lysis , dipst ick Glucose-Stat us Negati ve Not Available [facility] [address], [place], [address], 06/25/2022 12:08:56 06/26/19 23 06/25/2022 urina lysis , dipst ick Bilirubin-St atus Negati ve Not Available [facility] [address], [place], [address], 06/25/2022 12:08:56 06/26/19 23 06/25/2022 urina lysis , dipst ick Ketones-Stat us Negati ve Not Available [facility] [address], [place], [address], 06/25/2022 12:08:56 06/26/19 23 06/25/2022 urina lysis , dipst ick Sp [place]-Stat us 1.010 Not Available [facility] [address], [place], [address], 06/25/2022 12:08:56 06/26/19 23 06/25/2022 urina lysis , dipst ick pH-Status 5.5 Not Available [facility] [address], [place], [address], 06/25/2022 12:08:56 06/26/19 23 06/25/2022 urina lysis , dipst ick Urobilinogen -Status 0.2 Not Available [facility] [address], [place], [address], 06/25/2022 12:08:56 06/26/19 23 06/25/2022 urina lysis , dipst ick Nitrates-Sta tus negati ve Not Available [facility] [address], [place], [address], 06/25/2022 12:08:56 06/26/19 23 06/25/2022 urina lysis , dipst ick Blood-Status Negati ve Not Available [facility] [address], [place], [address], 06/25/2022 12:08:56 06/26/19 23 06/25/2022 urina lysis , dipst ick Leuko-Status Negati ve Not Available [facility] [address], [place], [address], 06/25/2022 12:08:56 06/26/19 23 06/25/2022 urina lysis , dipst ick Specimen Type Voided Not Available [facility] [address], [place], [address], 06/25/2022 12:08:56 01/08/20 22 01/01/2022 bladd er scan (PROC ) No observ ation record ed. BARCODE Not Available 2021 09:07:18 06/21/19 23 06/18/2022 CT ABD wo&W & pelv wo&W (no oral cont) No observ ation record ed. [email or web address] [facility] [address] [facility] [address], [place], [address], 07/01/2022 10:45:14 Result Notes None recorded. Problems Name Problem SNOMED Code Status Onset Date Resolution Date Notes Provider Name and Address Organization Details Recorded Time Microscop ic hematuria 443550299 Active 2016 R31.29 : Other microscopi c hematuria Not Available [facility] 02:03:03 Problem Notes None recorded. Procedures Surgical History Date Name Laterality Status Provider Name and Address Organization Details Recorded Time 023 Bladder Scan completed Siobhan Sheets [facility] 06/25/2022 12:17:55 022 CystoscopyFemale completed Bala Desai PA-C [address] [facility],[address], [place], [address], [facility] 01/01/2022 12:36:16 022 Bladder Scan completed Wolf Frey [facility] 01/01/2022 11:52:43 Orthopedic Surgery completed Wolf sheppard [facility] 01/01/2022 11:49:26 oophorectomy completed Wolf Frey [facility] 01/01/2022 11:49:38 thyroidectomy completed Wolf Frey [facility] 01/01/2022 11:49:45 Imaging Results Imaging Date Name Status LastModified by Organiz ation Details LastModified Time 01/01/2022 bladder scan (PROC) completed BARCODE Information not available 01/07/2022 09:07:18 06/18/2022 CT ABD wo&W & pelv wo&W (no oral cont) completed [email or web address] [facility] [address], [place], [address], 07/01/2022 10:45:14 Procedure Notes None recorded. Medical Equipment None Reported. Allergies Allergen ID Allergen Name Allergen Category Reaction Reaction Severity Criticality Documentation Date Start Date Code Code System Note Provider Name and Address Organization Details Recorded Time [id number] 2824e adhesive tape environme nt,medica tion Not available Not available Not available 01/01/2022 68003 UNK Not Available Not Available Not Available [id number] 2879320e2 2824e nickel environme nt Not available Not available Not available 01/01/2022 98952 29 RxNorm Not Available Not Available Not Available Medications Name Sig Start Date Stop Date Status Note LastModified by Organization Details LastModified Time compound drug active Not Available Not Available Not Available antacid/dip hen/lido 111 mouthwas SWISH AND SPIT 5 ML BY MOUTH FOUR TIMES DAILY NEEDED. MAY COMPOUND / SUBSTITUE IF PRODUCT NOT COVERED active Not Available Not Available No t Available amoxicillin 500 mg capsule TAKE 1 [...] Updated DateTime 01/01/2022 168.91 cm 28.8 kg/m2 76199.22 g Wolf Frey [place] [facility] 01/01/2022 11:45:40 Date Recorded Body height Body mass index (BMI) Body weight Provider Name and Address Organization Details Last Updated DateTime 06/25/2022 168.91 cm 28.8 kg/m2 88564.22 g Ciara Ross [facility] 06/25/2022 12:08:29 Social History Question Answer Notes LastModified by Organizat ion Details LastModified Time Tobacco Smoking Status Current Every Day [facility] 11:48:59 What Is Your Level Of Alcohol Consumption? None Information not available 01/01/2022 What Is Your Level Of Caffeine Consumption? Heavy [email or web address] Information not available 01/01/2022 What Was The Date Of Your Most Recent Tobacco Screening? 06/25/2022 Information not available 06/25/2022 How Much Tobacco Do You Smoke? 1 PPD Information not available 01/01/2022 Do You Use [...] LastModified Time Father Malignant tumor of testis [email or web address] Not available 2021 11:48:35 Maternal Grandfather Family history of malignant neoplasm [place] [id number] Not available 2021 11:48:46 Medical History Condition Response Diabetes Y Sexually Transmitted Infection N Bleeding Disorder N Other N High Blood Pressure Y Kidney Stones Y High Cholesterol N GERD/Acid Reflux Y Heart Disease N Cancer Y Depression N Lung Disease N Gynecological History Statement/Question Response If Post Menopausal, Age at Menopause 51 Sexually Active? Y Obstetrics History GPAL:G 0 P 0 0 0 0 Immunizations Vaccine Type Date Status Note Provider Nam e and Address Organization Details Recorded Time Influenza, injectable,quadriv alent, preservative free, pediatric 3 completed Korin reyes [facility] 04/09/2023 14:12:24 Influenza, recombinant, quadrivalent, PF 1 completed Korin Allar null, [facility] 04/09/2023 14:12:24 Influenza, recombinant, quadrivalent, PF 1 completed Korin Allar null, [facility] 04/09/2023 14:12:24 Influenza, recombinant, quadrivalent, PF 9 completed Korin Allar null, [facility] 04/09/2023 14:12:24 zoster recombinant 1 completed Korin Allar null, [facility] 04/09/2023 14:12:24 zoster recombinant 1 completed Korin Allar null, [facility] 04/09/2023 14:12:24 Tdap 2 completed Korin Allar null, [facility] 04/09/2023 14:12:24 Influenza, split virus, trivalent, preservative 1 completed Korin Allar null, [facility] 04/09/2023 14:12:24 Influenza, split virus, trivalent, PF 1 completed Korin Allar null, [facility] 04/09/2023 14:12:24 Td (adult), 2 Lf tetanus toxoid, preservative free, adsorbed 2 completed Korin Allar null, [facility] 04/09/2023 14:12:24 Td (adult), 2 Lf tetanus toxoid, preservative free, adsorbed 2 completed Korin Allar null, [facility] 04/09/2023 14:12:24 Hep B, adult 0 completed Korin Allar null, [facility] 04/09/2023 14:12:24 Influenza, split virus, quadrivalent, PF 8 completed Okrin Allar null, [facility] 04/09/2023 14:12:24 Influenza, split virus, quadrivalent, PF 4 completed Korin Allar null, [facility] 04/09/2023 14:12:24 Past Encounters Encounter ID Performer Location Encounter Start Date Encounter Closed Date Diagnosis/Indication Diagnosis SNOMED-CT Code Diagnosis ICD10 Code [id number] Flavio Morales MD [facility] [address] [place] [address] 01/01/2022 11:10:54 01/04/2022 16:59:32 Microscopic hematuria 449083768 R31.[address] ress incontinence 54549427 N39.3 Overactive urinary bladder 739886223 N32.81 [id number] Flavio Morales MD [facility] [address] [place], [place] [address] 06/25/2022 12:03:25 06/26/2022 13:47:53 Overactive urinary bladder 087733482 N32.81 Microscopic hematuria 19 7302423 R31.29 Female str ess incontinence 02904040 N39.3 Health Concerns Section Related Observation LastModified by Organization Detai ls LastModified Time None Recorded Concern Status LastModified by Organization Details LastModified Time None Recorded Advance Directives Directive None Recorded Payers Encounter Date Sequence Insurance Name Policy Number Policy Bonilla Covered Member ID Bonilla Member ID Guarantor Name 01/01/2022 1 [employer] - INDIVIDUAL AND FAMILY ([facility] [id number] 1 Aileen Sloan [id number] Aileen Alassley 06/25/2022 1 [employer] FAM[employer] ([facility] [id number] 1 Aileen Noland Nathalia [id number] Aileen Nuzhat Nathalia Notes Date Note Type Note Provider Name and Address Organization Details Recorded Time 01/01/2022 text/html 51 YO Female her e for urgency and microscopic hematuria Microscopic Hematuria:Has had chronic microscopic hematuria for 10+ years. [...] cancer. Currently everyday smoker. PYH 20. Stress incontinence:Has incontinece with cough and sneeze, very bothersome. Does not use pads during the day. Does not feel any vaginal bulging. Urgency:Has ongoing feelings of urgency for the past 2-3 years. Denies urge urinary incontinece, but does have to use kegals at times to hold in urine with urge. Frequency x6-10. Nocturia x3. Denies dysuria. MedHx:-kidney stones-HTN,-asthma -IBS SurgHx:-Left oophorectomy ObHx:-1 vaginal delivery UA moderate bloodPVR 0mlCysto is normalPelvic without atrophy, no POP, but does have positive stress test Flavio Morales MD [address] [place] [address],[address] [place] [address], [address], [facility] 01/03/2022 17:56:51 06/25/2022 text/html 51 YO Female her e for urgency /stress incontinence and microscopic hematuria follow up Patient was last seen 01/01/22. 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 Patient would qualify for OAB meds once this is under control. Cysto was normal at that time. 1 Microscopic Hematuria:CT urogram 06/18/22 is normal; normal cysto in 12/2021. Her micro-hematuria is benign; NTD about it; return in 5 years unless is gross hematuria. 2. Stress incontinence:she was planning to do PT for stress incontinence. 3. Urgency:Persists with urgency and frequency. MedHx:-kidney stones-HTN,-asthma -IBS Flavio Morales MD [address] [place] [address],[address], [place], [address], [facility] 06/25/2022 12:28:57 OBGyn Episode No OBEpisode recorded.
--- OUTSIDE RECORDS SUMMARY | 2024-04-05 07:48 | XMS_ITS | Data Portability ---
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 Plan of Treatment Reminders Order Date Submit Date Provider Last Modified By Organization Details Last Modified Time Details Appointments None recorded. Lab urinalysi s, dipstick 2021 022 abajema [facility], [address], [place], [address], 2 12:42:04 urinalysi s, dipstick 2022 023 [email or web address] [facility], [address], [place], [address], 3 12:28:23 Referral physical therapist referral - referral for stress incontine ce 2021 022 clif Olmos, [address] [facility], [place], [address], 2 08:23:08 physical therapist referral 2022 023 clif Olmos, [address] [place], [address], 3 07:32:43 Procedures None recorded. Surgeries None recorded. Imaging CT, abdomen + pelvis, w/ contrast - [facility], [address], [place], [address], 2 17:33:27 Medication Orders trospium 20 mg tablet 2022 023 brit [id number], [address] [facility], [place], [place], [id number], 3 12:28:23 Patient TargetsNo targets recorded. Patient [...] Available [facility] [address], [place], [address], 01/01/2022 11:52:48 01/02/20 22 01/01/2022 urina lysis , dipst ick Clarity-Stat us Clear Not Available [facility] [address], [place], [address], 01/01/2022 11:52:48 01/02/20 22 01/01/2022 urina lysis , dipst ick Glucose-Stat us Negati ve Not Available [facility] [address], [place], [address], 01/01/2022 11:52:48 01/02/20 22 01/01/2022 urina lysis , dipst ick Bilirubin-St atus Negati ve Not Available [facility] [address], [place], [address], 01/01/2022 11:52:48 01/02/20 22 01/01/2022 urina lysis , dipst ick Ketones-Stat us Negati ve Not Available [facility] [address], [place], [address], 01/01/2022 11:52:48 01/02/20 22 01/01/2022 urina lysis , dipst ick Sp Boston-Stat us 1.020 Not Available [facility] [address], [place], [address], 01/01/2022 11:52:48 01/02/20 22 01/01/2022 urina lysis , dipst ick pH-Status 5.5 Not Available [facility] [address], [place], [address], 01/01/2022 11:52:48 01/02/20 22 01/01/2022 urina lysis , dipst ick Urobilinogen -Status 0.2 Not Available [facility] [address], [place], [address], 01/01/2022 11:52:48 01/02/20 22 01/01/2022 urina lysis , dipst ick Nitrates-Sta tus negati ve Not Available [facility] [address], [place], [address], 01/01/2022 11:52:48 01/02/20 22 01/01/2022 urina lysis , dipst ick Blood-Status Negati ve Not Available [facility] [address], [place], [address], 01/01/2022 11:52:48 01/02/20 22 01/01/2022 urina lysis , dipst ick Leuko-Status Negati ve Not Available [facility] [address], [place], [address], 01/01/2022 11:52:48 01/02/20 22 01/01/2022 urina lysis , dipst ick Specimen Type Voided Not Available [facility] [address], [place], [address], 01/01/2022 11:52:48 01/02/20 22 01/01/2022 urina lysis , dipst ick Performed by Wolf Frey RN Not Available [facility] [address], [place], [address], 01/01/2022 11:52:48 01/02/20 22 01/01/2022 urina lysis , dipst ick Total Urine Volume 20cc Not Available [facility] [address], [place], [address], 01/01/2022 11:52:48 06/26/19 23 06/25/2022 urina lysis , dipst ick Color-Status Yellow Not Available [facility] [address], [place], [address], 06/25/2022 12:08:56 06/26/19 23 06/25/2022 urina lysis , dipst ick Clarity-Stat us Clear Not Available [facility] [address], [place], [address], 06/25/2022 12:08:56 06/26/19 23 06/25/2022 urina lysis , dipst ick Glucose-Stat us Negati ve Not Available [facility] [address], [place], [address], 06/25/2022 12:08:56 06/26/19 23 06/25/2022 urina lysis , dipst ick Bilirubin-St atus Negati ve Not Available [facility] [address], [place], [address], 06/25/2022 12:08:56 06/26/19 23 06/25/2022 urina lysis , dipst ick Ketones-Stat us Negati ve Not Available [facility] [address], [place], [address], 06/25/2022 12:08:56 06/26/19 23 06/25/2022 urina lysis , dipst ick Sp Boston-Stat us 1.010 Not Available [facility] [address], [place], [address], 06/25/2022 12:08:56 06/26/19 23 06/25/2022 urina lysis , dipst ick pH-Status 5.5 Not Available [facility] [address], [place], [address], 06/25/2022 12:08:56 06/26/19 23 06/25/2022 urina lysis , dipst ick Urobilinogen -Status 0.2 Not Available [facility] [address], [place], [address], 06/25/2022 12:08:56 06/26/19 23 06/25/2022 urina lysis , dipst ick Nitrates-Sta tus negati ve Not Available [facility] [address], [place], [address], 06/25/2022 12:08:56 06/26/19 23 06/25/2022 urina lysis , dipst ick Blood-Status Negati ve Not Available [facility] [address], [place], [address], 06/25/2022 12:08:56 06/26/19 23 06/25/2022 urina lysis , dipst ick Leuko-Status Negati ve Not Available [facility] [address], [place], [address], 06/25/2022 12:08:56 06/26/19 23 06/25/2022 urina lysis , dipst ick Specimen Type Voided Not Available [facility] [address], [place], [address], 06/25/2022 12:08:56 01/08/20 22 01/01/2022 bladd er scan (PROC ) No observ ation record ed. BARCODE Not Available 2021 09:07:18 06/21/19 23 06/18/2022 CT ABD wo&W & pelv wo&W (no oral cont) No observ ation record ed. [facility] [address], [place], [address], 07/01/2022 10:45:14 Result Notes None recorded. Problems Name Problem SNOMED Code Status Onset Date Resolution Date Notes Provider Name and Address Organization Details Recorded Time Microscop ic hematuria 215217208 Active 2016 R31.29 : Other microscopi c hematuria Not Available [facility] 02:03:03 Problem Notes None recorded. Procedures Surgical History Date Name Laterality Status Provider Name and Address Organization Details Recorded Time 023 Bladder Scan completed Siobhan Sheets [facility] 06/25/2022 12:17:55 022 CystoscopyFemale completed Bala Desai PA-C [address] [facility],[address], [place], [address], [facility] 01/01/2022 12:36:16 022 Bladder Scan completed Wolf Frey [facility] 01/01/2022 11:52:43 Orthopedic Surgery completed Wolf sheppard [facility] 01/01/2022 11:49:26 oophorectomy completed Wolf Frey [facility] 01/01/2022 11:49:38 thyroidectomy completed Wolf Frey [facility] 01/01/2022 11:49:45 Imaging Results Imaging Date Name Status LastModified by Organiz ation Details LastModified Time 01/01/2022 bladder scan (PROC) completed BARCODE Information not available 01/07/2022 09:07:18 06/18/2022 CT ABD wo&W & pelv wo&W (no oral cont) completed [email or web address] [facility] [address], [place], [address], 07/01/2022 10:45:14 Procedure Notes None recorded. Medical Equipment None Reported. Allergies Allergen ID Allergen Name Allergen Category Reaction Reaction Severity Criticality Documentation Date Start Date Code Code System Note Provider Name and Address Organization Details Recorded Time [id number] 6044238c5 2824e adhesive tape environme nt,medica tion Not available Not available Not available 01/01/2022 41431 UNK Not Available Not Available Not Available [id number] 6769707h9 2824e nickel environme nt Not available Not available Not available 01/01/2022 04910 29 RxNorm Not Available Not Available Not [...] Available Not Available No t Available varenicline tartrate 1 mg tablet START DAY 8 AND TAKE 1 TABLET BY MOUTH TWICE DAILY FOR 11 WEEKS 01/01 completed Not Available Not Available Not Available varenicline tartrate 0.5 mg tablet DAYS 1-3 TAKE 1 [...] Updated DateTime 01/01/2022 168.91 cm 28.8 kg/m2 06159.22 g Wolf Frey [facility] 01/01/2022 11:45:40 Date Recorded Body height Body mass index (BMI) Body weight Provider Name and Address Organization Details Last Updated DateTime 06/25/2022 168.91 cm 28.8 kg/m2 21303.22 g Ciara Ross [facility] 06/25/2022 12:08:29 Social History Question Answer Notes LastModified by Organizat ion Details LastModified Time Tobacco Smoking Status Current Every Day Smoker Wolf Tk reyes [facility] 01/01/2022 11:48:59 What Is Your Level Of Alcohol Consumption? None [email or web address] Information not available 01/01/2022 What Is Your Level Of Caffeine Consumption? Heavy [email or web address] Information not available 01/01/2022 What Was The Date Of Your Most Recent Tobacco Screening? 06/25/2022 Information not available 06/25/2022 How Much Tobacco Do You Smoke? 1 PPD [email or web address] [id number] Information not available 01/01/2022 Do You Use [...] LastModified Time Father Malignant tumor of testis [email or web address] Not available 2021 11:48:35 Maternal Grandfather Family history of malignant neoplasm [email or web address] [id number] Not available 2021 11:48:46 Medical History Condition [...] preservative free, pediatric 3 completed Korin reyes [facility] 04/09/2023 14:12:24 Influenza, recombinant, quadrivalent, PF 1 completed Korin Allar null, [facility] 04/09/2023 14:12:24 Influenza, recombinant, quadrivalent, PF 1 completed Korin Allar null, [facility] 04/09/2023 14:12:24 Influenza, recombinant, quadrivalent, PF 9 completed Korin Allar null, [facility] 04/09/2023 14:12:24 zoster recombinant 1 completed Korin Allar null, [facility] 04/09/2023 14:12:24 zoster recombinant 1 completed Korin Allar null, [facility] 04/09/2023 14:12:24 Tdap 2 completed Korin Allar null, [facility] 04/09/2023 14:12:24 Influenza, split virus, trivalent, preservative 1 completed Korin Allar null, [facility] 04/09/2023 14:12:24 Influenza, split virus, trivalent, PF 1 completed Korin Allar null, [facility] 04/09/2023 14:12:24 Td (adult), 2 Lf tetanus toxoid, preservative free, adsorbed 2 completed Korin Allar null, [facility] 04/09/2023 14:12:24 Td (adult), 2 Lf tetanus toxoid, preservative free, adsorbed 2 completed Korin Allar null, [facility] 04/09/2023 14:12:24 Hep B, adult 0 completed Korin Allar null, [facility] 04/09/2023 14:12:24 Influenza, split virus, quadrivalent, PF 8 completed Korin Allar null, [facility] 04/09/2023 14:12:24 Influenza, split virus, quadrivalent, PF 4 completed Korin Allar null, [facility] 04/09/2023 14:12:24 Past Encounters Encounter ID Performer Location Encounter Start Date Encounter Closed Date Diagnosis/Indication Diagnosis SNOMED-CT Code Diagnosis ICD10 Code [id number] Flavio Morales MD [facility] [address] [place] [address] 01/01/2022 11:10:54 01/04/2022 16:59:32 Microscopic hematuria 733720036 R31.[address] ress incontinence 60311142 N39.3 Overactive urinary bladder 627837571 N32.81 [id number] Flavio Morales MD [facility] [address] [place], [place] [address] 06/25/2022 12:03:25 06/26/2022 13:47:53 Overactive urinary bladder 952718640 N32.81 Microscopic hematuria 19 7748310 R31.29 Female str ess incontinence 86602356 N39.3 Health Concerns Section Related Observation LastModified by Organization Detai ls LastModified Time None Recorded Concern Status LastModified by Organization Details LastModified Time None Recorded Advance Directives Directive None Recorded Payers Encounter Date Sequence Insurance Name Policy Number Policy Bonilla Covered Member ID Bonilla Member ID Guarantor Name 01/01/2022 1 [employer] - INDIVIDUAL AND FAMILY ([facility] [id number] 1 Aileen Noland Nathalia [id number] Aileen Sloan 06/25/2022 1 [employer] - INDIVID[employer] AND FAMILY ([facility] [id number] 1 Aileen Noland Nathalia [id number] Aileen Noland Nathalia Notes Date Note Type [...] have positive stress test Flavio Morales MD [address] [place] [address],[address] [place] [address], [address], [facility] 01/03/2022 17:56:51 06/25/2022 text/html 52 [...] frequency. MedHx:-kidney stones-HTN,-asthma -IBS Flavio Morales MD [address] [place] [address],[address], [place], [address], [facility] 06/25/2022 12:28:57 OBGyn Episode No OBEpisode recorded.
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
== END 2024-05-25 10:36 | disposition home or self-care (01) ==
PROVIDERS: PCP Physician Assistant Medical; Visit Provider Physician Assistant Medical
DX: R42 Dizziness and giddiness (principal); I63.9 Cerebral infarction, unspecified; I69.393 Ataxia following cerebral infarction; R26.81 Unsteadiness on feet; R41.89 Other symptoms and signs involving cognitive functions and awareness; M62.830 Muscle spasm of back; R20.9 Unspecified disturbances of skin sensation; Z51.89 Encounter for other specified aftercare
CPT/HCPCS: 80306; 86140; 87086; 97110; 97112; 97140; 97162; 97166; 97530; 97535; X5282

== ENCOUNTER 2024-07-26 15:52 | Outpatient (CLI) | payer MEDICAID, SELFPAY | END 2024-07-26 15:53 | disposition home or self-care (01) | PROVIDERS: PCP Physician Assistant Medical; Visit Provider Physician Assistant Medical | DX: M25.551 Pain in right hip (principal); M25.552 Pain in left hip; R20.2 Paresthesia of skin | CPT/HCPCS: 82306; 82607; 83519; 86140 ==

== ENCOUNTER 2024-08-19 18:49 | Emergency (ER) | payer MEDICAID, SELFPAY ==
[2024-08-19 18:58] VITALS: BP 139/83; PULSE 81; RESP 16; TEMP 36.3; O2SAT 98; BMI 26.6
--- NOTE | 2024-08-19 19:13 | CRLHL7_ITS ---
For Patients: As a result of the Century Cures Act, medical imaging exams and procedure reports are released immediately into your electronic medical record. You may view this report before your referring provider. If you have questions, please contact your health care provider. INDICATION: Constipation, abdominal pain, distention.. TECHNIQUE: CT abdomen and pelvis acquired with 81 cc Isovue 370 IV contrast. COMPARISON: None. FINDINGS: Lower chest: Mild bibasilar linear opacities likely atelectasis. Liver: Unremarkable. Normal in size and attenuation. No suspicious masses. Gallbladder and bile ducts: Status post cholecystectomy. No intra or extrahepatic biliary ductal dilatation. Pancreas: Unremarkable. No mass or inflammation. Spleen: Unremarkable. Normal in size. No masses. Adrenal glands: Unremarkable. No nodules. Kidneys: Unremarkable. No suspicious masses, stones, or hydronephrosis. GI tract: Mildly above average colonic stool volume. No bowel obstruction. No sign of mass or inflammation. Normal appendix. Vasculature: Abdominal aorta is normal in caliber. Mesenteric arteries are patent. Lymph nodes: No lymphadenopathy. Peritoneum/Abdominal Wall: Unremarkable. No sign of mass or infiltration. No free air or significant free fluid. Pelvis: Unremarkable. Bones: Unremarkable for age. IMPRESSION: Mildly above average colonic stool volume. Otherwise, no acute intra-abdominal process identified. Please note that all CT scans at this facility use dose modulation, iterative reconstruction, and/or weight-based dosing when appropriate to reduce radiation dose to as low as reasonably achievable. Dictated by Arik Roland MD @ 08/19/2024 8:18:55 PM (Electronically Signed)
[2024-08-19 19:32] LABS: Basophils Absolute Auto 0.04 K/uL (0.00-0.30); Basophils Percent Auto 0.4 % (0.0-3.0); Eosinophils Absolute Auto 0.36 K/uL (0.00-0.50); Eosinophils Percent Auto 3.9 % (0.0-7.0); Hematocrit 37.6 % (33.0-51.0); Hemoglobin* 12.3 gm/dL (12.0-16.0); Lymphocytes Absolute Auto 2.95 K/uL (0.90-2.90); Lymphocytes Percent Auto 32.2 % (20-44); Mean Corpuscular HGB Conc 33 gm/dL (32-36); Mean Corpuscular Hemoglobin 30 pg (26-34); Mean Corpuscular Volume 92 fL (80-100); Monocytes Percent Auto 8.5 % (0.0-11.0); Neutrophils Absolute Auto 5.04 K/uL (1.7-7.0); Platelet Count* 261 K/uL (140-440); RDW Coefficient of Variation % 11.7 % (11.5-15.5); Red Blood Count 4.07 m/uL (4.00-5.20); White Blood Count* 9.17 K/uL (4.50-11.00)
[2024-08-19 19:34] LABS: Slide Review Reflex No
[2024-08-19 19:37] LABS: Chloride* 103 mmol/L (96-114)
[2024-08-19 19:38] LABS: Sodium* 141 mmol/L (135-149)
[2024-08-19 19:40] LABS: Creatinine, Point-of-Care* 1.1 mg/dl (0.6-1.3)
[2024-08-19 19:41] LABS: Anion Gap 9 mEq/L (7-15); Blood Urea Nitrogen* 15 mg/dL (7-30); Calcium* 9.3 mg/dL (8.4-10.6); Carbon Dioxide* 29 mmol/L (20-32); Est. Creatinine Clearance* 59.51; Estimated Glomerular Filt Rate 67 ml/min; Glucose* 92 mg/dL (60-115)
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
--- OUTSIDE RECORDS SUMMARY | 2024-08-19 20:54 | XMS_ITS | Clinical Summary ---
Author Organization [facility] Address [address] , [address] [place] [address] Phone Care Team Providers Care Spine Nurse Name Role Phone Lara Montoya Conditions or Problems Problem Name Problem Code Onset Date Status Entry Date Provider Comment Standard Description Annotate Cerebellar stroke 016565292 (SNOMED CT) Active Kota Mckay MD Cerebellar stroke syndrome Radicular pain 34594139 (SNOMED CT) Active Kota Mckay MD Radicular pain Leg pain, right 413678975 (SNOMED CT) Active Kota Mckay MD Pain in right lower limb Low back pain 595059377 (SNOMED CT) Active Kota Mckay MD Low back pain NUMBNESS/TIN GLING 782.0 (ICD-9-CM) Active Damian Head MD Disturbance of skin sensation ARM WEAKNESS, DOMINANT SIDE G83.20 (ICD-10-CM) Active Damian Head MD 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 diclofenac sodium 95247923189 Kota Mckay MD JANUVIA 50 MG TABS sitagliptin phosphate 18024384328 Kota Mckay MD DULOXETINE HCL 60 MG CPEP duloxetine 53544483499 Kota Mckay MD VENTOLIN HFA 108 (90 Base) MCG/ACT AERS albuterol sulfate 04271194431 Kota Mckay MD DIAZEPAM 5 MG TABS diazepam 34244410808 Kota Mckay MD ESOMEPRAZOLE MAGNESIUM 20 MG CPDR esomeprazole magnesium 38582758626 Kota Mckay MD GABAPENTIN 300 MG CAPS gabapentin 38201104653 Kota Mckay MD TIZANIDINE HCL 4 MG TABS tizanidine 59660498189 Kota Mckay MD SPIRONOLACTONE 50 MG TABS spironolactone 98058129282 Kota Mckay MD METOPROLOL SUCCINATE ER 50 MG [id number] metoprolol succinate 11087643026 Kota Mckay MD Medications Administered No information available. Allergies, Adverse Reactions, Alerts Allergy Name Reaction Description Start Date Severity Statu s Provider NICKEL Rash Mild Active Mauricio Jare cki LATEX Moderate Active Kota Mckay MD Results Date Name Value Unit Range Flag Description Internal Other: Authorizatio n - OBS [email or web address] Yes Authoriza tion: Release of Information - Authorize [facility] - Payment and Healthcare Operations ROIAUTHOTHER Yes Authoriz ation: Release of Information - Authorize Others/Insurance - Payment and Healthcare Operations HIECONSENT Yes Consent To Release information to the Health Information Exchange (HIE) [email or web address] Yes Authorizat ion: Authorization for [facility] to leave messages, voicemail, send text messages, send emails AUTHRELHCARE Yes Authoriz ation: Release/Retrieval of Information to/from Healthcare Facilities, Pharmacy Benefit Payers and Providers AUTHPRIVPRAC Yes Authoriz ation: Notice of privacy practices AUTHBENEFIT Yes Authoriza tion: Assignment of Benefits and Payment Agreement Internal Other: Verbal Autho rization/Emergency Contact - OBS VERBAL_EMER Done Verbal authorization and emergency contact Office Visit: Office Visit C erebellar stroke & cerebral infarction,.unspecifie SMOK STATUS former smoker Tobacco smoking status MEDS REVIEW Done Documenta tion of current medications (procedure) Lab Report: LIPID PANEL WITH RATIOS C-LDL/C-HDL 1.2 (calc) LDL/HD L ratio, serum CHOL/HDL 2.8 (calc) <5.0 N cholester ol/HDL ratio, serum LDL 43 MG/DL (CALC) mg/dL N Cholesterol in L DL [Mass/volume] in Serum or Plasma - mg/dL TRIGLYCRDES 145 mg/dL <150 N Triglycer clementine [Mass/volume] in Serum or Plasma - mg/dL HDL 37 mg/dL > OR = 50 L Cholesterol in HDL [Mass/volume] in Serum or Plasma - mg/dL NON-HDL CHOL 66 MG/DL (CALC) mg/dL <130 N cholesterol, non-HDL, total Plan of Care Type Date Detail Appointment 08:00 AM Yoselin Quiroz igel DNP,QUICK PRINT OPERATOR,SENIOR MEDIA DIRECTOR, [address], [address], [place], [address], Pending order Follow up [place] Pending order Follow up [place] Pending order Lipid Panel with LDL/HDL Ratio - fasting after midnight Pending order Patient Instruct ions Pending order Follow up as nee ded Pending order Patient Instruct ions Procedures Code Procedure Name Date Entry Date [facility]-[id number] Documentation of current medicatio ns ORDERS Patient Instructions ORDERS Lipid Panel with LDL /HDL Ratio - fasting after midnight [facility]-[id number] Documentation of current medicatio ns CPT-18288 Nerve Conduction 5-6 studies CPT-96536 EMG with NCS (5+ muscles) - 1 limb 04/24 ORDERS Follow up as needed ORDERS Patient Instructions CPT-96155 Motor NCS and Fwave x 2 2010 CPT-47392 Sensory NCS x 3 CPT-87463 EMG 1 limb Vital Signs No information available. Immunizations No information available. Advance Directives No information available.
--- OUTSIDE RECORDS SUMMARY | 2024-08-19 20:54 | XMS_ITS | Encounter Summary ---
Author Organization [facility] Address [address], [place] [address] Care Team Providers Care Watch Inspector Name Role Phone Lyndsey Guzman MD Primary Care Provider +1- [phone] Encounter Details Date Type Department Care Team (Latest Contact Info) Description 03/19/1995 [place] [address] Social History Tobacco Use Types Packs/Day Years Used Date Smoking Tobacco: Never Assessed Comments Unknown Sex and Gender Information Value Date Recorded Sex Assigned at Not on file Legal Sex Female 4:25 AM CDT Gender Identity Not on file Sexual Orientation Not on file documented as of this encounter Plan of Treatment Not on file documented as of this encounter Visit Diagnoses Not on filedocumented in this encounter Care Teams Watch Inspector Relationship Specialty Start Date End Date Lyndsey Guzman MD [address] [place] [address] PCP - General Emergency Medicine 01/10/20 documented as of this encounter
--- OUTSIDE RECORDS SUMMARY | 2024-08-19 20:54 | XMS_ITS | Data Portability ---
Author Organization [facility] Address [address] [place] [address] Care Team Providers Care Certified Bench Jeweler Technician Name Role Phone WOLF BANSAL Primary Care Provider [phone] Assessment No assessment recorded. Plan of Treatment Reminders Order Date Submit Date Provider Last Modified By Organization Details Last Modified Time Details Appointments None recorded. Lab urinalysi s, dipstick 2022 023 [email or web address] [facility], [address], [place], [address], 3 12:28:23 urinalysi s, dipstick 2021 022 abajema [facility], [address], [place], [address], 2 12:42:04 Referral physical therapist referral 2022 023 clif [facility], [address] [place], [address], 3 07:32:43 physical therapist referral - referral for stress incontine ce 2021 022 clif Olmos, [address] [place], [address], 08:23:08 Procedures None recorded. Surgeries None recorded. Imaging CT, abdomen + pelvis, w/ contrast - Urogram phase 2021 022 [employer] [facility] [place], [address], [place], [address], 2 17:33:27 Medication Orders trospium 20 mg tablet 2022 023 brit [id number], [address] [facility] [facility], [place], [place], [id number], 3 12:28:23 Patient TargetsNo targets recorded. Patient [...] Available [facility] [address], [place], [address], 01/01/2022 11:52:48 01/02/20 22 01/01/2022 urina lysis , dipst ick Clarity-Stat us Clear Not Available [facility] [address], [place], [address], 01/01/2022 11:52:48 01/02/20 22 01/01/2022 urina lysis , dipst ick Glucose-Stat us Negati ve Not Available [facility] [address], [place], [address], 01/01/2022 11:52:48 01/02/20 22 01/01/2022 urina lysis , dipst ick Bilirubin-St atus Negati ve Not Available [facility] [address], [place], [address], 01/01/2022 11:52:48 01/02/20 22 01/01/2022 urina lysis , dipst ick Ketones-Stat us Negati ve Not Available [facility] [address], [place], [address], 01/01/2022 11:52:48 01/02/20 22 01/01/2022 urina lysis , dipst ick Sp Rapelje-Stat us 1.020 Not Available [facility] [address], [place], [address], 01/01/2022 11:52:48 01/02/20 22 01/01/2022 urina lysis , dipst ick pH-Status 5.5 Not Available [facility] [address], [place], [address], 01/01/2022 11:52:48 01/02/20 22 01/01/2022 urina lysis , dipst ick Urobilinogen -Status 0.2 Not Available [facility] [address], [place], [address], 01/01/2022 11:52:48 01/02/20 22 01/01/2022 urina lysis , dipst ick Nitrates-Sta tus negati ve Not Available [facility] [address], [place], [address], 01/01/2022 11:52:48 01/02/20 22 01/01/2022 urina lysis , dipst ick Blood-Status Negati ve Not Available [facility] [address], [place], [address], 01/01/2022 11:52:48 01/02/20 22 01/01/2022 urina lysis , dipst ick Leuko-Status Negati ve Not Available [facility] [address], [place], [address], 01/01/2022 11:52:48 01/02/20 22 01/01/2022 urina lysis , dipst ick Specimen Type Voided Not Available [facility] [address], [place], [address], 01/01/2022 11:52:48 01/02/20 22 01/01/2022 urina lysis , dipst ick Performed by Wolf Frey RN Not Available [facility] [address], [place], [address], 01/01/2022 11:52:48 01/02/20 22 01/01/2022 urina lysis , dipst ick Total Urine Volume 20cc Not Available [facility] [address], [place], [address], 01/01/2022 11:52:48 06/26/19 23 06/25/2022 urina lysis , dipst ick Color-Status Yellow Not Available [facility] [address], [place], [address], 06/25/2022 12:08:56 06/26/19 23 06/25/2022 urina lysis , dipst ick Clarity-Stat us Clear Not Available [facility] [address], [place], [address], 06/25/2022 12:08:56 06/26/19 23 06/25/2022 urina lysis , dipst ick Glucose-Stat us Negati ve Not Available [facility] [address], [place], [address], 06/25/2022 12:08:56 06/26/19 23 06/25/2022 urina lysis , dipst ick Bilirubin-St atus Negati ve Not Available [facility] [address], [place], [address], 06/25/2022 12:08:56 06/26/19 23 06/25/2022 urina lysis , dipst ick Ketones-Stat us Negati ve Not Available [facility] [address], [place], [address], 06/25/2022 12:08:56 06/26/19 23 06/25/2022 urina lysis , dipst ick Sp Rapelje-Stat us 1.010 Not Available [facility] [address], [place], [address], 06/25/2022 12:08:56 06/26/19 23 06/25/2022 urina lysis , dipst ick pH-Status 5.5 Not Available [facility] [address], [place], [address], 06/25/2022 12:08:56 06/26/19 23 06/25/2022 urina lysis , dipst ick Urobilinogen -Status 0.2 Not Available [facility] [address], [place], [address], 06/25/2022 12:08:56 06/26/19 23 06/25/2022 urina lysis , dipst ick Nitrates-Sta tus negati ve Not Available [facility] [address], [place], [address], 06/25/2022 12:08:56 06/26/19 23 06/25/2022 urina lysis , dipst ick Blood-Status Negati ve Not Available [facility] [address], [place], [address], 06/25/2022 12:08:56 06/26/19 23 06/25/2022 urina lysis , dipst ick Leuko-Status Negati ve Not Available [facility] [address], [place], [address], 06/25/2022 12:08:56 06/26/19 23 06/25/2022 urina lysis , dipst ick Specimen Type Voided Not Available [facility] [address], [place], [address], 06/25/2022 12:08:56 01/08/20 22 01/01/2022 bladd er scan (PROC ) No observ ation record ed. BARCODE Not Available 2021 09:07:18 06/21/19 23 06/18/2022 CT ABD wo&W & pelv wo&W (no oral cont) No observ ation record ed. [email or web address] [facility] [address], [place], [address], 07/01/2022 10:45:14 Result Notes None recorded. Problems Name Problem SNOMED Code Status Onset Date Resolution Date Notes Provider Name and Address Organization Details Recorded Time Microscop ic hematuria 695084558 Active 2016 R31.29 : Other microscopi c hematuria Not Available [facility] 02:03:03 Problem Notes None recorded. Procedures Surgical History Date Name Laterality Status Provider Name and Address Organization Details Recorded Time 023 Bladder Scan completed Siobhan Sheets [facility] 06/25/2022 12:17:55 022 CystoscopyFemale completed Bala Desai PA-C [address], [place], [address], [facility] 01/01/2022 12:36:16 022 Bladder Scan completed Wolf Frey [facility] 01/01/2022 11:52:43 Orthopedic Surgery completed Wolf sheppard [facility] 01/01/2022 11:49:26 oophorectomy completed Wolf Frey [facility] 01/01/2022 11:49:38 thyroidectomy completed Wolf Frey [facility] 01/01/2022 11:49:45 Imaging Results Imaging Date Name Status LastModified by Organiz ation Details LastModified Time 01/01/2022 bladder scan (PROC) completed BARCODE Information not available 01/07/2022 09:07:18 06/18/2022 CT ABD wo&W & pelv wo&W (no oral cont) completed [email or web address] [facility] [address], [place], [address], 07/01/2022 10:45:14 Procedure Notes None recorded. Medical Equipment None Reported. Allergies Allergen ID Allergen Name Allergen Category Reaction Reaction Severity Criticality Documentation Date Start Date Code Code System Note Provider Name and Address Organization Details Recorded Time 740186 adhesive tape environme nt,medica tion Not available Not available Not available 01/01/2022 53698 UNK Wolf reyes [facility] 2 11:46:01 633983 nickel environme nt Not available Not available Not available 01/01/2022 84133 29 RxNorm Wolf reyes [facility] 2 11:46:05 Medications Name Sig [...] Updated DateTime 01/01/2022 168.91 cm 28.8 kg/m2 64005.22 g Wolf Frey [place] [facility] 01/01/2022 11:45:40 Date Recorded Body height Body mass index (BMI) Body weight Provider Name and Address Organization Details Last Updated DateTime 06/25/2022 168.91 cm 28.8 kg/m2 72983.22 g Ciara Ross [facility] 06/25/2022 12:08:29 Social History Question Answer Notes LastModified by Organizat ion Details LastModified Time Tobacco Smoking Status Current Every Day Sm[facility]/2022 11:48:59 What Is Your Level Of Alcohol Consumption? None Information not available 01/01/2022 What Is Your Level Of Caffeine Consumption? Heavy [email or web address] Information not available 01/01/2022 What Was The Date Of Your Most Recent Tobacco Screening? 06/25/2022 Information not available 06/25/2022 How Much Tobacco Do You Smoke? 1 [place] [address] Information not available 01/01/2022 Do You Use [...] LastModified Time Father Malignant tumor of testis [email or web address] Not available 2021 11:48:35 Maternal Grandfather Family history of malignant neoplasm [place] [id number] Not available 2021 11:48:46 Medical History Condition Response Diabetes Y Sexually Transmitted Infection N Bleeding Disorder N Other N High Blood Pressure Y Kidney Stones Y Cancer Y Depression N Lung Disease N High Cholesterol N GERD/Acid Reflux Y Heart Disease N Gynecological History Statement/Question Response If Post Menopausal, Age at Menopause 51 Sexually Active? Y Obstetrics History GPAL:G 0 P 0 0 0 0 Immunizations Vaccine Type Date Status Note Provider Nam e and Address Organization Details Recorded Time Influenza, injectable,quadriv alent, preservative free, pediatric 3 completed Korin reyes [facility] 04/09/2023 14:12:24 Influenza, recombinant, quadrivalent, PF 1 completed Korin Allar null, [facility] 04/09/2023 14:12:24 Influenza, recombinant, quadrivalent, PF 1 completed Korin Allar null, [facility] 04/09/2023 14:12:24 Influenza, recombinant, quadrivalent, PF 9 completed Korin Allar null, [facility] 04/09/2023 14:12:24 zoster recombinant 1 completed [facility] null, [facility] 04/09/[facility]23 14:12:24 zoster recombinant 1 completed Korin Allar null, [facility] 04/09/2023 14:12:24 Tdap 2 completed Korin Allar null, [facility] 04/09/2023 14:12:24 Influenza, split virus, trivalent, preservative 1 completed Korin Allar null, [facility] 04/09/2023 14:12:24 Influenza, split virus, trivalent, PF 1 completed Korin Allar null, [facility] 04/09/2023 14:12:24 Td (adult), 2 Lf tetanus toxoid, preservative free, adsorbed 2 completed Korin Allar null, [facility] 04/09/2023 14:12:24 Td (adult), 2 Lf tetanus toxoid, preservative free, adsorbed 2 completed Okrin Allar null, [facility] 04/09/2023 14:12:24 Hep B, adult 0 completed Korin Allar null, [facility] 04/09/2023 14:12:24 Influenza, split virus, quadrivalent, PF 8 completed Korin Allar null, [facility] 04/09/2023 14:12:24 Influenza, split virus, quadrivalent, PF 4 completed Korin Allar null, [facility] 04/09/2023 14:12:24 Past Encounters Encounter ID Performer Location Encounter Start Date Encounter Closed Date Diagnosis/Indication Diagnosis SNOMED-CT Code Diagnosis ICD10 Code Diagnosis Note [id number] Flavio Morales MD [facility] [address] [place] [address] 01/01/2022 11:10:54 01/04/2022 16:59:32 Microscopic hematuria 174877427 R31.29 -Obtain CT urogram, cysto today normal -Based on 2019 AUA micro-romelia turia guidelines , cystoscopy and axial upper tract imaging recommende d in patients with micro-romelia turia categorize d as high-risk for malignancy (strong smoking history, voiding symptoms). -In case of negative results, she would need her next UAcheck in one year and return in 3-5 years unless she develops additional voiding symptoms including gross hematuria -For persistent or recurrent asymptomat ic microhemat uria after initial negative urologic work-up, repeat evaluation within three to five years should be considered Genuine st ress incontinence 52484745 N39.3 -Positive stress test-Could be a candidate for sling, however recently diagnosed with diabetes, current everyday smoker and having back issues-She was given informatio n and will re evaluate in 6 months Overactive urinary bladder 850396934 N32.81 -Having urgency-DM could be contributi ng (recently diagnosed, A1C around 6.5%)-Disc ussed dietary changes and conservati ve measure-Fo llow up in 6 months after diabetes better controlled to reevlaute. Could be a candidate for medication s if DMII better controlled . [id number] Flavio Morales MD [facility] 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 Female str ess incontinence 47451384 N39.3 PT next for stress incotinnec e, candidate for a sling surgery Health Concerns Section Related Observation LastModified by Organization [employer] [facility] LastModified Time None Recorded Concern Status LastModified by Organization Details LastModified Time None Recorded Advance Directives Directive None Recorded Payers Insurance Date Sequence Insurance Name Policy Number Policy Bonilla Covered Member ID Bonilla Member ID Guarantor Name 08/07/2021 1 [employer] Aileen Sloan [id number] Aileen Sloan 06/25/2022 1 [facility] (HMO) [id number] 1 Aileen Sloan [id number] Aileen Sloan Notes Date Note Type Note [...] have positive stress test Flavio Morales MD [address] [place] [address],[address], [place], [address], [place] [facility] 01/03/2022 17:56:51 06/25/2022 text/html 51 YO [...] frequency. MedHx:-kidney stones-HTN,-asthma -IBS Flavio Morales MD [address] [place] [address],[address], [place], [address], [email or web address] - [facility] 06/25/2022 12:28:57 OBGyn Episode No OBEpisode recorded.
--- OUTSIDE RECORDS SUMMARY | 2024-08-19 20:54 | XMS_ITS | Encounter Summary ---
Author Organization [facility] Address [address] [address] Care Team Providers Care Machine Packaging Technician Name Role Phone Lyndsey Guzman MD Primary Care Provider +1- [phone] Encounter Details Date Type Department Care Team (Latest Contact Info) Description 05/12/1995 Orders Only Garret, Richard Dillon MD Social History Tobacco Use Types Packs/Day [...] on filedocumented in this encounter Care Teams Machine Packaging Technician Relationship Specialty Start Date End Date Lyndsey Guzman MD [address] [place] [address] PCP - General Emergency Medicine 01/10/20 documented as of this encounter
--- OUTSIDE RECORDS SUMMARY | 2024-08-19 20:54 | XMS_ITS | Continuity of Care Document ---
Author Organization [facility] Address [address] [place] [address] Phone Care Team Providers Care Operations Manager Assistant Name Role Phone [facility] [place], [facility] Unavailable Unavai lable Allergies, Adverse Reactions, Alerts Substance Reaction Status Criticality adhesive tape Active No Information Medications Medication Instructions Dosage Effective Dates (start - stop) Status Comments Vazalore 81 mg capsule take 1 capsule by oral route every day 81 MG - Active OZEMPIC (unknown strength) inject by subcutaneous route every week on the same day of each week Not Available - Active KAPSPARGO SPRINKLE (unknown strength) take 1 capsule by oral route every day Not Available - Active Crestor 40 mg tablet take 1 tablet by oral route every day 40 MG - Active Procedures Procedure Date Inject, Spine, Cerv/Thor, Epi/subarc w/i mg Guid Inject, Spine, Cerv/Thor, Epi/subarc w/i mg Guid Verified No Separate Anesthesia 025 Est Pt Eval Moderate Est Pt Eval Telehealth Inj Anes Agent; Stellate Gangl Fluoro Guidance - Spine Change Control for Procedure(s): 2024 DEXAMETHASONE SODIUM PHOS Stellate Ganglion Fluoroscopic Guidance For Needle Placeme nt - Spine Change Control Document Insufficiencies PT Eval - Moderate Complexity [facility]rom[facility] Audio Est Pt Eval Moderate Inject, Spine, Cerv/Thor, Epi/subarc w/i mg Guid Inject, Spine, Cerv/Thor, Epi/subarc w/i mg Guid ANES DRG/ASPIR CRV/THRC New Pt Eval Moderate Advance Directives Directive Yes / No Effective Date File Name No Information Encounters Encounter Description Practice Location Reason(s) For Visit Diagnoses Date Provider Providers Copied on Encounter [facility], [address], [place], [address], [place] tel:[phone] [facility] neck pain (chief complaint) Radiculopathy, cervical regionRadiculopathy , cervical region 5 [facility]. [address], [place], [place], [address], [place]. tel:[phone] Referring Provider: Gildardo Arevalo, [address], [place], [address]. tel:[phone] [facility], [address], [place], [place], [address], [place] tel:[phone] [facility] No Information 5 Mickey Ewing. [address], [place], [address], [place]. tel:[phone] Referring Provider: Gildardo Arevalo, [address], [place], [address]. tel:[phone] [facility], [address], [place], [place], [address], [place] tel:[phone] [facility] No Information 5 Mickey Ewing. [address], [place], [address], [place]. tel:[phone] Referring Provider: Chung Boone, [address], [place], [address] . tel:[phone] Est Pt Eval Moderate [facility], [facility], [address], [place], [address], [place] tel:[phone] [facility] shoulder pain (chief complaint) Complex regional pain syndrome I of left upper limbRadiculopathy, cervical regionPain in left shoulderLow back painBody mass index (BMI) 27.0-27.9, adult Jul-05 17- 5 Maynard Olesya. [address], [place], [place], [address], [place]. tel:[phone] Referring Provider: Chung Boone, [address], [place], [address] . tel:[phone] Est Pt Eval Telehealth [facility], [facility], [address], [place], [place], [address], [place] tel:[phone] [facility] shoulder pain (chief complaint) Radiculopathy, cervical regionLow back painPain in left shoulderComplex regional pain syndrome I of left upper limbBody mass index (BMI) 27.0-27.9, adult Jun- 5 Ketola Deirdre. [address], [place], [address], [place]. tel:[phone] Referring Provider: Chung Boone, [address], [place], [address] . tel:[phone] [facility], [address], [place], [address], [place] tel:[phone] [facility] Molly shoulder pain (chief complaint) Complex regional pain syndrome I of left upper limbNeuralgia and neuritis, unspecifiedComplex regional pain syndrome I of left upper limbNeuralgia and neuritis, unspecified 5 [facility]. [address], [place], [place], [address], [place]. tel:[phone] Referring Provider: Gildardo Arevalo, [address], [place], [address]. tel:[phone] [facility], [address], [place], [address], [place] tel:[phone] [facility] No Information 5 Mickey Ewing. [address], [place], [address], [place]. tel:[phone] Referring Provider: Gildardo Arevalo, [address], [place], [address]. tel:[phone] [facility], [address], [place], [place], [address], [place] tel:[phone] [facility] No Information 5 Veronica Barcenas. [address], [place], [address], [place]. tel:[phone] Referring Provider: Gildardo Arevalo, [address], [place], [address]. tel:[phone] [facility], [address], [place], [place], [address], [place] tel:[phone] [facility] Complex regional pain syndrome I of left upper limbPain in left shoulderFibromyalgi a 5 Rei Ramos. [address], [place], [address], [place]. tel:[phone] Referring Provider: Chung Boone, [address], [place], [address] . tel:[phone] [facility], [address], [place], [place], [address], [place] tel:[phone] [facility] Complex regional pain syndrome I of left upper limbPain disorder with related psychological factors 5 Stephon Copeland. [address], [place], [address], [place]. tel:[phone] Referring Provider: Chung Boone, [address], [place], [address] . tel:[phone] Est Pt Eval Moderate [facility], [address], [place], [place], [address], [place] tel:[phone] [facility] shoulder pain (chief complaint) Radiculopathy, cervical regionPain in left shoulderLow back painBody mass index (BMI) 27.0-27.9, adultComplex regional pain syndrome I of left upper limb 5 Ketola Deirdre. [address], [place], [place], [address], [place]. tel:[phone] Referring Provider: Chung Boone, [address] [facility] [address], [place], [address] . tel:[phone] [facility] [place], [address], [place], [address], [place] tel:[phone] [facility] shoulder pain (chief complaint) Radiculopathy, cervical regionComplex regional pain syndrome I of left upper limbRadiculopathy, cervical region Apr- 5 [facility]. [address], [place], [place], [address], [place]. tel:[phone] Referring Provider: Gildardo Arevalo [address], [place], [address]. tel:[phone] [facility], [facility], [address], [place], [place], [address], [place] tel:[phone] [facility] Surgical [facility] No Information 5 Mickey Ewing. [address], [place], [address], [place]. tel:[phone] Referring Provider: Gildardo Arevalo, [address], [place], [address]. tel:[phone] [facility], [facility], [address], [place], [place], [address], [place] tel:[phone] [facility] No Information 5 Spencer Lloyd. [address], [place], [address], [place]. tel:[phone] Referring Provider: Gildardo Arevalo, [address], [place], [address]. tel:[phone] New Pt Eval Moderate [facility], [facility], [address], [place], [place], [address], [place] tel:[phone] [facility] shoulder pain (chief complaint) low back pain (chief complaint) Body mass index (BMI) 28.0-28.9, adultPain in left shoulderLow back painRadiculopathy, cervical region 5 Hanane Brooks. [address], [place], [address], [place]. tel:[phone] Referring Provider: Chung Boone, [address], [place], [address] . tel:[phone] Family History Family Member Type Diagnosis Age At Onset No Information Payers Payer name Insurance type Covered constitution party ID Douglas bonner(s) [employer] MC [id number] Social History Type Description Quantity Date Captured Comments Sex Female Smoking Status No Information Chief Complaint And Reason For Visit No Information Reason For Referral Reason For Referral No Information Plan Of Treatment Date Type Action Status Goal Lifestyle education regardin g diet completed Goal Lifestyle education regardin g diet completed Goal Lifestyle education regardin g diet completed Referral Ordered: Referrals: Behavioral Health. Evaluate and treat ordered Referral Referred To: Physical Therapy Ordered: Referrals: Physical Therapy. Evaluate and treat ordered Appointment Aileen Sloan BOOKED History Of Present Illness Encounter Date Complaint History Of Prese nt Illness neck pain The pain is loca patricio in the left posterior neck. The neck pain radiates into the left arm. shoulder pain The pain is loca patricio in the left shoulder. The shoulder pain radiates into the left posterior neck. The pain pattern also includes the fingers and arm. Pain intensity is currently 7/10.The pain has been worsening . The pain is described as throbbing, cramping and numb. The following activities make the pain worse: prolonged position and driving.The patient denies any relieving factors. Additional information: numb, tingling. shoulder pain The pain is loca patricio in the left shoulder. Pain intensity is currently 7/10.The pain is described as cramping and numbness. The following activities make the pain worse: prolonged position and driving. The following activities make the pain better: OTC meds. Studies Reviewed MRI - Cervical Spine W/O Contrast performed on 04/30/2024. Interpretation: See module, Result: 1 C3-4, severe left foraminal stenosis with moderate left facet arthrosis/mild uncovertebral arthrosis.2. C4-5, mild bilateral foraminal stenoses with mild/moderate bilateral facet arthrosis.3. C5-6, moderate right foraminal stenosis and ventral cord flattening with moderate disc degeneration, 2 mm AP posterior bulge and moderate uncovertebral arthrosis.4. C6-7, mild left foraminal stenosis with uncovertebral arthrosis. Studies Reviewed MRI - Thoracic Spine W/O Contrast performed on 05/24/2024. Interpretation: See module, Result: 1 Small right T5-6 disc herniation encroaching but not compressing the cord.2. Mild disc desiccation at other thoracic levels with normal annular morphology and no stenosis.3. No bone marrow or spinal cord signal pathology. shoulder pain The pain is loca patricio in the left shoulder. shoulder pain The pain is loca patricio in the left shoulder. The shoulder pain radiates into the left posterior neck. Pain intensity is currently 5/10.The pain is described as aching, burning and dull. The following activities make the pain worse: movement and daily activity.The patient denies any relieving factors. shoulder pain The pain is loca patricio in the left shoulder. Pain intensity is currently 7/10. shoulder pain The pain is loca patricio in the left shoulder. The pain radiates into the neck.The shoulder pain radiates into the left upper back. Pain intensity is currently 6/10. is 10/10 at its worst, 5/10 at its best,The pain has been worsening . The pain is of variable intensity. The pain is described as burning, cramping, sharp and stabbing. The following activities make the pain worse: movement, physical activity and daily activity.The patient denies any relieving factors. The patient denies bladder incontinence, headache, nausea and rash. low back pain Location of pain is lower back. The patient denies bladder incontinence, headache, nausea and rash. 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 Functional Status Date Functional Assessmen t No Information Instructions Date Instruction Additional Infor jason - Follow up in clini c in 2-3 weeks to discuss results from today's injection Related to Radiculopathy, cervical region See above Related to Low b ack pain - Continue physical therapy Rela patricio to Pain in left shoulder Procedures:- Ordered cervical epidural steroid injection at C3-4 Related to Radiculopathy, cervical region Procedures:- Prior a uthorization in progress for SCS trial *once approved, implant team will call to schedule Follow up:- Follow up 2 weeks after injection, telehealth ok Related to Complex regional pain syndrome I of left upper limb Giving encouragement to exercise Related to Body mass index [BMI] 27.0-27.9, adult See above Related to Low b ack pain Procedures:- Prior a uth in progress for SCS trial - Continue to monitor relief from stellate ganglion nerve block Related to Complex regional pain syndrome I of left upper limb Medications- Can tri al over the counter topical capsaicin Follow up:- Follow up with advanced practice provider as needed Related to Radiculopathy, cervical region See above Related to Pain in left shoulder Lifestyle education regarding di et Related to Body mass index [BMI] 27.0-27.9, adult - Follow up in clini c in 2-3 weeks to discuss results from today's injection Related to Complex regional pain syndrome I of left upper limb See above Related to Pain in left shoulder Procedures:- Prior a uth in progress for SCS trial > Order thoracic MRI at [facility]> Schedule behavioral health eval, telehealth ok > Schedule Physical Therapy - Schedule stellate ganglion nerve block *Find more information at [facility] Related to Complex regional pain syndrome I of left upper limb See above Related to Low b ack pain Medications- Can tri al over the counter topical capsaicin Follow up:- Follow up with advanced practice provider 2 weeks after procedure and imaging, telehealth okay Related to Radiculopathy, cervical region Lifestyle education regarding di et Related to Body mass index [BMI] 27.0-27.9, adult Lifestyle education regarding di et Related to Body mass index [BMI] 27.0-27.9, adult - Follow up in clini c in 2-3 weeks to discuss results from today's injection Related to Radiculopathy, cervical region - Ordered left dyana ate ganglion block- Began prior authorization for MDT spinal cord stimulator trial, literature provided today, expect a phone call from our implant team- Schedule behavioral health implant evaluation- Schedule physical therapy implant evaluation Related to Complex regional pain syndrome I of left upper limb - Nice to meet you!- Schedule cervical epidural steroid injection*Talk to front desk administrator or call [phone] to schedule*With sedation, do not eat or drink 8hrs prior to procedure and must have cab driver- Ordered cervical MRI at [facility] will call to schedule, if you don't hear back in a few days call [phone]- Consider stellate ganglion nerve block *Find more information at [facility]- Awaiting records from [facility]- Can trial over the counter topical capsaicin - Follow up with advanced practice provider 2 weeks after procedure and imaging, telehealth okay Related to Radiculopathy, cervical region Giving encouragement to exercise Related to Body mass index [BMI] 28.0-28.9, adult Assessments Type Assessment Date No Information Patient Care Teams Name Effective Dates (start - stop) Status Members No Information
--- OUTSIDE RECORDS SUMMARY | 2024-08-19 20:54 | XMS_ITS | Encounter Summary ---
Author Organization [facility] Address [address] [place] [address] Care Team Providers Care Janitor Cleaner Name Role Phone Devin Britt DO Primary Care Provider [phone] Damian Dowell MD Unavailable [phone] Collin Singh MD Unavailable Unavailable Frw, None Primary Care Provider Unavailabl e Allison Smyth Primary Care Provider [phone] Lyndsey Guzman MD Primary Care Provider [phone] Carine Smallwood MD Unavailable [phone] Vee Levy-C Unavailable [phone] Carine Smallwood MD Unavailable [phone] Vee Levy-C Unavailable [phone] Carine Smallwood MD Unavailable [phone] Vee Levy-C Unavailable [phone] Carine Smallwood MD Unavailable [phone] Vee Levy-C Unavailable [phone] Carine Smallwood MD Unavailable [phone] Vee Levy-C Unavailable [phone] Carine Smallwood MD Unavailable [phone] Vee Levy PA-C Unavailable [phone] Carine Smallwood MD Unavailable Vee Levy PA-C Unavailable Reason for Visit * Reason Onset Date Comments Refill Request 05/30/2006 Francisco/zaida Encounter Details Date Type Department Care Team (Late st Contact Info) Description 05/30/2006 Refill [facility] [address] [place] [address] Collin Singh MD Refill Request (Francisco/zaida) Social History Tobacco Use Types Packs/Day Years Used Date Smoking Tobacco: Every Day Cigarettes 1 10 Alcohol Use Standard Drinks/Week Comments Yes 0 (1 standard drink = 0.6 oz pur e alcohol) Social Comments No Sex and Gender Information Value Date Recorded Sex Assigned at Not on file Legal Sex Female 3:22 AM SUPPORT SERVICES SPECIALIST Gender Identity Not on file Sexual [...] as she has not been seen since [facility] and hasn't been able to make other appts and currently has no appt made. ORT SERVICES SPECIALIST documented in this encounter Plan of Treatment Not on file documented as of this encounter Visit Diagnoses Not on filedocumented in this encounter Care Teams Janitor Cleaner Relationship Specialty Start Date End Date Devin Britt DO [address] [place] [address] PCP - General 04/18/05 09/04/11 Damian Dowell MD [address] [place] [address] PCP - Surgery 05/08/04 03/14/14 Collin Singh MD [address] [place] [address] PCP - Orthopaedics 01/23/06 02/19/18 Frw, None PCP - General Family Practice 09/05/11 09/18/13 Allison Smtyh PCP - General Family Practice 09/19/13 08/27/20 Lyndsey Guzman MD [facility] [address] [place] [address] PCP - General Family Medicine 08/28/20 Carine Smallwood MD [address] [place] [address] Assigned Surgical Provider 09/17/20 Vee Levy PA-C [address] [place] [address] Assigned Surgical Provider 10/29/20 Carine Smallwood MD [address] [place] [address] Assigned Surgical Provider 11/05/20 Vee Levy PA-C [address] [place] [address] Assigned Surgical Provider 12/03/20 Carine Smallwood MD [address] [place] [address] Assigned Surgical Provider 12/31/20 Vee Levy PA-C [address] [place] [address] Assigned Surgical Provider 03/11/21 Carine Smallwood MD [address] [place] [address] Assigned Surgical Provider 02/25/21 Vee Levy PA-C [address] [place] [address] Assigned Surgical Provider 02/11/21 Carine Smallwood MD [address] [place] [address] Assigned Surgical Provider 03/25/2104/14/21 Vee Levy PA-C [address] [place] [address] Assigned Surgical Provider 04/15/2104/21/21 Carine Smallwood MD [address] [place] [address] Assigned Surgical Provider 05/27/2112/14/21 Vee Levy PA-C [address] [place] [address] Assigned Surgical Provider 05/20/2104/04 Carine Smallwood MD [address] [facility] [address] [place] [address] Assigned Surgical Provider 04/22/2105/19/21 Vee Levy PA-C [address] [facility] [address] [place] [address] Assigned Surgical Provider 12/15/21 documented as of this encounter
--- OUTSIDE RECORDS SUMMARY | 2024-08-19 20:54 | XMS_ITS | Encounter Summary ---
Author Organization [facility] Address [address] [place] [address] Care Team Providers Care Milk Delivery Driver Name Role Phone Devin Britt DO Primary Care Provider [phone] Urvashi Mccabe MD Primary Care Provider Edwin Rangel MD Primary Care Provider Damian Dowell MD Unavailable [phone] Collin Singh MD Unavailable Unavailable Frw, None Primary Care Provider Unavailabl Allison Porras Primary Care Provider [phone] Lyndsey Guzman MD Primary Care Provider + [phone] Carine Smallwood MD Unavailable [phone] Vee Levy-C Unavailable [phone] Carine Smallwood MD Unavailable [phone] Vee Levy-C Unavailable +[phone] Carine Smallwood MD Unavailable [phone] Vee Levy-C Unavailable +[phone] Carine Smallwood MD Unavailable +[phone] Vee Levy-C Unavailable [phone] Carine Smallwood MD Unavailable [phone] Vee Levy PA-C Unavailable Carine Smallwood MD Unavailable Vee Levy PA-C Unavailable Carine Smallwood MD Unavailable Vee Levy PA-C Unavailable [phone] Reason for Visit * Reason Onset Date Comments Pain 05/21/2004 Encounter Details Date Type Department Care Team (Late st Contact Info) Description 05/21/2004 Telephone [facility] [place] Surgery [address] [place] [id number] Damian Dowell MD [address] [place] [id number] Pain Social History Tobacco Use Types Packs/Day Years Used Date Smoking Tobacco: Former Cigarettes 0.5 7 1 06/03/1996 - 04/02/2004 Alcohol Use Standard Drinks/Week Comments Not Asked 0 (1 standard drink = 0.6 oz pur e alcohol) Adolescent Education Answer Date Record ed Getting School Help Needed Not on file 01/12 Comments No Sex and Gender Information Value Date Recorded Sex Assigned at Not on file Legal Sex Female 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 No / Unsure 11/28/2020 9:48 AM CDT documented as of this encounter Miscellaneous Notes * Telephone Encounter - 05/21/2004 9:34 AM CSTPt still having pain.Would like rx for pain med.Suggested to pt to be seen again. SSING TOOL SETTER documented in this encounter Plan of Treatment Not on file documented as of this encounter Visit Diagnoses Not on filedocumented in this encounter Care Teams Milk Delivery Driver Relationship Specialty Start Date End Date Devin Britt DO [address] [place], [place] [id number] PCP - General 04/18/05 09/04/11 Urvashi Mccabe MD [facility] [address] [facility] [address] [place] [address] PCP - General 11/07/04 04/17/05 Edwin Rangel MD [facility] [address] [place] [address] PCP - General 05/08/04 11/06/04 Damian Dowell MD [address] [place] [address] PCP - Surgery 05/08/04 03/14/14 Collin Singh MD [address] [place] [address] PCP - Orthopaedics 01/23/06 02/19/18 Frw, None PCP - General Family Practice 09/05/11 09/18/13 Allison Smyth PCP - General Family Practice 09/19/13 08/27/20 Lyndsey Guzman MD [facility] [address] [place] [address] PCP - General Family Medicine 08/28/20 Carine Smallwood MD [address] [facility] [address] [place] [address] Assigned Surgical Provider 09/17/20 Vee Levy PA-C [address] [place] [address] Assigned Surgical Provider 10/29/20 Carine Smallwood MD [address] [place] [address] Assigned Surgical Provider 11/05/20 Vee Levy PA-C [address] [place] [address] Assigned Surgical Provider 12/03/20 Carine Smallwood MD [address] [place] [address] Assigned Surgical Provider 12/31/20 Vee Levy PA-C [address] [place] [address] Assigned Surgical Provider 03/11/21 Carine Smallwood MD [address] [place] [address] Assigned Surgical Provider 02/25/21 Vee Levy PA-C [address] [place] [address] Assigned Surgical Provider 02/11/21 Carine Smallwood MD [address] [place] [address] Assigned Surgical Provider 03/25/2104/14/21 Vee Levy PA-C [address] [place] [address] Assigned Surgical Provider 04/15/2104/21/21 Carine Smallwood MD [address] [place] [address] Assigned Surgical Provider 05/27/2112/14/21 Vee Levy PA-C [address] [place] [address] Assigned Surgical Provider 05/20/2104/04 Carine Smallwood MD [address] [place] [address] Assigned Surgical Provider 04/22/2105/19/21 Vee Levy PA-C [address] [place] [address] Assigned Surgical Provider 12/15/21 documented as of this encounter
--- OUTSIDE RECORDS SUMMARY | 2024-08-19 20:55 | XMS_ITS | Clinical Summary ---
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 Gender Identity Not on file Sexual Orientation Not on file 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 Not on file Not on file Last Filed Vital Signs Vital Sign Reading Time Taken Comments Blood Pressure 134/84 11/28/2020 9:52 AM CDT Pulse 97 11/28/2020 9:52 AM CDT Temperature 36.8 C (98.3 F) 10/10/2020 8:16 AM CDT Respiratory Rate 16 11/28/2020 9:52 AM CDT Oxygen Saturation 99% 11/28/2020 9:52 AM CDT Inhaled Oxygen Concentration - - Weight 81.2 kg (179 lb) 11/28/2020 9:52 AM CDT Height 167.6 cm (5' 6) 11/28/2020 9:52 AM CDT Body Mass Index 28.89 11/28/2020 9:52 AM CDT Plan of Treatment Not on file Advance Directives For more information, please contact: [phone] * Full Code (Latest Code Status on File) Date Activated Date Inactivated Comments 10/09/2020 2:28 PM 10/10/2020 1:54 PM All basic an d advanced life-sustaining interventions are performed as appropriate Post op Question Answer Comments Code status determined by: Other (please linda t) Care Teams Workforce Planner Relationship Specialty Start Date End Date Lyndsey Guzman MD [facility] [address], [place] [address] PCP - General Family Medicine 08/28/20
--- OUTSIDE RECORDS SUMMARY | 2024-08-19 20:55 | XMS_ITS ---
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 - BREAST IMPL ANT COMPLICATION - BREAST IMPLANT COMPLICATION Reason for Visit DIRECTOR OF STRATEGIC PARTNERSHIPS - BREAST IMPLANT COMPLICATION - BREAST IMPLANT COMPLICATION Encounters Date Name 09/13/2020 Capsular breast cont racture of breast implant (disorder) 09/13/2020 History of surgery 09/13/2020 Tobacco use Medications Date Name Route Dose Frequency Instructions Start Date End Date Status Amoxicillin Oral active Montelukast Oral 1.0 QD active Diazepam Oral act jocelyn Ketoprofen Oral 24 hr Cap active Metoprolol Oral 24 hr Tab (Succinate) a ctive Albuterol HFA Inhaler 90 mcg/actuation active Diclofenac Topical Gel 1 % active Problems Diagnosis Status Date of Diagnosi s History of surgery Active Tobacco use Active Capsular breast contracture of breast implant (d isorder) Active Vital Signs Date Type Value 09/13/2020 Heart Beat 84.00 09/13/2020 Respiratory Rate 15.00 09/13/2020 Oxygen Saturation 98.00 09/13/2020 Intravascular Systolic 132 09/13/2020 Intravascular Diastolic 84 09/13/2020 BSA 1.93 09/13/2020 Weight 183.30 09/13/2020 Height 66.00 09/13/2020 BMI 29.59 09/13/2020 Pain Scale 0.00
--- OUTSIDE RECORDS SUMMARY | 2024-08-19 20:55 | XMS_ITS | CCD ---
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 - BREAST IMPLANT COMPLICATION Encounters Date Name 09/13/2020 Tobacco use Medications Date Name Route Dose Frequency Instructions Start Date End Date Status Ketoprofen Oral 24 hr Cap active Diclofenac Topical Gel 1 % active Diazepam Oral act jocelyn Montelukast Oral 1.0 QD active Albuterol HFA Inhaler 90 mcg/actuation active Amoxicillin Oral active Metoprolol Oral 24 hr Tab (Succinate) a ctive Problems Diagnosis Status Date of Diagnosi s History of surgery Active Tobacco use Active Capsular breast contracture of breast implant (d isorder) Active Social History Date Name Value 09/08/2020 Sex Female
--- OUTSIDE RECORDS SUMMARY | 2024-08-19 20:55 | XMS_ITS | Encounter Summary ---
Author Organization [facility] Address [address] [place] [address] Care Team Providers Care Special Class Welder Name Role Phone Devin Britt DO Primary Care Provider [phone] Damian Dowell MD Unavailable [phone] Collin Singh MD Unavailable Unavailable Frw, None Primary Care Provider Unavailabl e Allison Smyth Primary Care Provider [phone] Lyndsey Guzman MD Primary Care Provider + [phone] Carine Smallwood MD Unavailable [phone] Vee Levy-C Unavailable [phone] Carine Smallwood MD Unavailable [phone] Vee Levy-C Unavailable [phone] Carine Smallwood MD Unavailable [phone] Vee Levy-C Unavailable [phone] Carine Smallwood MD Unavailable [phone] Vee Levy-C Unavailable [phone] Carnie Smallwood MD Unavailable [phone] Vee Levy-C Unavailable [phone] Carine Smallwood MD Unavailable [phone] Vee Levy PA-C Unavailable [phone] Carine Smallwood MD Unavailable [phone] Vee Levy PA-C Unavailable [phone] Encounter Details Date Type Department Care Team (Late st Contact Info) Description 05/06/2005 [facility] [place] Inpatient Dept [address] [place] [address] Frw, Inpatient Provider Social History Tobacco Use Types Packs/Day Years Used Date Smoking Tobacco: Every Day Cigarettes 1 10 Smokeless Tobacco: Never Alcohol Use Standard Drinks/Week Comments Yes 0 (1 standard drink = 0.6 oz pur e alcohol) Social drink/monthly Comments No Sex and Gender Information Value Date Recorded Sex Assigned at Not on file 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 Bernardino Key M.D. F[place]ia cc: PER SORTER documented in this encounter Plan of Treatment Not on file documented as of this encounter Visit Diagnoses Not on filedocumented in this encounter Care Teams Special Class Welder Relationship Specialty Start Date End Date Devin Britt, DO [address] [place] [address] PCP - General 04/18/05 09/04/11 Damian Dowell MD [address] [place] [address] PCP - Surgery 05/08/04 03/14/14 Collin Singh MD [address] [place] [address] PCP - Orthopaedics 01/23/06 02/19/18 Frw, None PCP - General Family Practice 09/05/11 09/18/13 Allison Smyth PCP - General Family Practice 09/19/13 08/27/20 Lyndsey Guzman MD [facility] [address] [place] [address] PCP - General Family Medicine 08/28/20 Carine Smallwood MD [address] [place] [address] Assigned Surgical Provider 09/17/20 Vee Levy PA-C [address] [place] [address] Assigned Surgical Provider 10/29/20 Carine Smallwood MD [address] [place] [address] Assigned Surgical Provider 11/05/20 Vee Levy PA-C [address] [place] [address] Assigned Surgical Provider 12/03/20 Carine Smallwood MD [address] [place] [address] Assigned Surgical Provider 12/31/20 Vee Levy PA-C [address] [place] [address] Assigned Surgical Provider 03/11/21 Carine Smallwood MD [address] [place] [address] Assigned Surgical Provider 02/25/21 Vee Levy PA-C [address] [place] [address] Assigned Surgical Provider 02/11/21 Carine Smallwood MD [address] [place] [address] Assigned Surgical Provider 03/25/2104/14/21 Vee Levy PA-C [address] [place] [address] Assigned Surgical Provider 04/15/2104/21/21 Carine Smallwood MD [address] [place] [address] Assigned Surgical Provider 05/27/2112/14/21 Vee Levy PA-C [address] [address] Assigned Surgical Provider 05/20/2104/04 Carine Smallwood MD [address] [address] Assigned Surgical Provider 04/22/2105/19/21 Vee Levy PA-C [address] [address] Assigned Surgical Provider 12/15/21 documented as of this encounter
--- OUTSIDE RECORDS SUMMARY | 2024-08-19 20:56 | XMS_ITS | Clinical Summary ---
Author Organization [email or web address] Address [address] [place] [address] Care Team Providers Care Government Affairs Researcher Name Role Phone Lyndsey Guzman MD Primary Care Provider [phone] Source Comments You are receiving this document as you are listed as the primary care provider,follow-up provider, or the patient has been referred to you for consultation.This is in compliance with the Medicare and[facility] EHR Incentive Program,which states Providers who transition their patient to another setting of careor provider of care or refers their patient to another provider of care shouldprovide summary care record for each transition of care or referral. [facility] Allergies No known active allergies Medications * This document contains information received from the source organization and may not represent a complete record from that organization. MedroxyPROGESTERo ne Acetate (DEPO-PROVERA IM) Ac tive Multiple Vitamin (MULTIVITAMIN OR) Ac tive metoPROLOL tartrate (AKA LOPRESSOR) 50 MG tabletIndications :Hemorrhoids, external Take 50 mg by mouth daily. Active ibuprofen (MOTRIN) 800 MG tablet Take 800 mg by mouth 3 times daily. 06/30/19 13 Active lancets (SOFTCLIX) Use 1 each as instructed 3 times daily. 300 each 2 01/29/20 13 Active blood glucose test strip Use 1 strip as instructed 3 times daily. FASTING, PRE AND 2 HOURS AFTER START OF MAIN MEAL 300 strip 2 01/29/20 13 Active hydrocortisone (HYDROCORTISONE 25 MG) [address] 1 suppository rectally 2 times daily. 12 suppository 0 10/27/20 13 Active hydrocortisone (PROCTOSOL-HC) 2.5 % rectal cream Place rectally 2 times daily. 30 g 0 02/07/20 13 Active traMADol (AKA ULTRAM) 50 MG tablet Take 1-2 tablets by mouth every 6 hours as needed for Pain for 5 days. May cause drowsiness. 20 tablet 0 05/07/19 14 Active valACYclovir (VALTREX) 500 MG tabletIndications :Cold sore Take 1 tablet by mouth 3 times daily. 30 tablet 0 05/07/19 14 Active SUMAtriptan (IMITREX) 50 MG tabletIndications :Migraine, unspecified, without mention of intractable migraine without mention of status migrainosus Take 1 tablet by mouth as needed. May repeat after 2 hours if needed. Max 4 tab/24 hours. Max 9 days/month 10 tablet 1 05/07/19 14 Active ALBUterol sulfate HFA 108 (90 BASE) MCG/ACT inhaler Inhale 1-2 puffs every 6 hours as needed for Wheezing. USE WITH SPACER. 8.5 g 2 05/31/19 14 Active ALBUterol 2.5 mg/3 mL (0.083%) inhalation Take 3 mLs by nebulization every 4 hours as needed for Wheezing for 5 days. 75 mL 0 07/07/19 14 Active ondansetron (ZOFRAN-ODT) 4 MG disintegrating tablet Take 1-2 tablets by mouth every 8 hours as needed for Nausea or Vomiting. Dissolve tablet on tongue 20 tablet 0 09/23/19 14 Active HYDROcodone-aceta minophen (NORCO) 5-325 MG tabletIndications :Chronic pain syndrome Take 1 tablet by mouth every 6 hours as needed for Pain. 8 tablet 0 10/02/19 14 Active adapalene (DIFFERIN) 0.3 % gel PLEASE DISPENSE BRANDED DIFFERIN 0.3% GEL per insurance plan covers branded Differin. Apply to acne at bedtime. 45 g 11 07/05/19 15 Active clindamycin (CLEOCINT) 1 % external solution Apply to acne in AM. 60 mL 11 07/05/19 15 Active metoPROLOL succinate (TOPROL XL) 50 MG 24 hour release tablet TAKE 1 TABLET BY MOUTH DAILY 90 tablet 0 12/27/19 15 Active oxyCODONE-acetami nophen (PERCOCET) 5-325 MG tablet Take 1-2 tablets by mouth every 4 hours as needed for Pain. Maximum acetaminophen dose is 4000 mg in 24 hours 30 tablet 0 05/30/19 16 Active Active Problems Problem Noted Date Diagnosed Date Impaired fasting glucose 01/22/2013 Fibromyalgia 12/11/2012 Tobacco use 12/11/2012 IBS (irritable bowel syndrome) 10/13/2012 Assessment & Plan (10/13/2012 1:37 PM CDT): She reports using Bentyl 10mg as needed, request refill, generally only uses if eating a big meal. She reports being diagnosed with IBS and colon spasms many years ago. She reports intermittent diarrhea. Denies blood or dark tarry stool. She reports having previous colonoscopys which have been normal. Allergic rhinitis 10/13/2012 Assessment & Plan (10/13/2012 1:36 PM CDT): Uses flonase daily, which she reports does help with runny nose and post nasal drainage. She thinks her allergies are worse this year. does not take a daily allergy medication. Elbow tendonitis 10/13/2012 Assessment & Plan (10/13/2012 1:38 PM CDT): Left elbow. She has been seeing Dr. 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 She uses norcor as needed 2-3 times weekly for elbow pain, she request refill. She plans to follow-up with Dr. Garcia next week to discuss further options. HTN (hypertension) 10/13/2012 Assessment & Plan (10/13/2012 1:32 PM CDT): Started on Metoprolol 50mg daily 2 months ago. She reports home BP readings have been <140/90. She reports initially feeling more tired on the medication, but now feels fine. Denies side effects of medication. Denies headache, dizziness, chest pain, SOB. Neck pain 10/13/2012 Assessment & Plan (10/13/2012 1:38 PM CDT): Takes Ativan 0.5mg as needed for muscle spasms, request refill. Last refill 08/03, 30 tablets. Cold sore 10/13/2012 Assessment & Plan (10/13/2012 1:41 PM CDT): Request refill of valcyclovir which she takes at first sign of cold sore. Asthma 04/24/2012 Assessment & Plan (10/13/2012 1:38 PM CDT): She reports using Albuterol as needed, request refill. She has been using 2-3 times weekly which is more than normal, she works outside and thinks her allergies are getting worse. She does not take a daily allergy medication. She uses Flonase for allergic rhinitis. Hematuria, microscopic 02/10/2012 RLQ abdominal pain 02/07/2012 Atypical squamous cells of u ndetermined significance (ASCUS) on Papanicolaou smear of cervix 02/07/2012 Overview (12/04/2016): ASCUS on Pap smear Lumbago 09/18/2002 Overview (12/04/2016): Pain Low Back Assessment & Plan (10/13/2012 1:33 PM CDT): Uses Ativan as needed for back pain. She reports working construction and will use for muscle spasms after work. Uses 2-3 times weekly. Migraine 09/18/2002 Overview (12/04/2016): Migraine Without Aura Assessment & Plan (10/13/2012 1:33 PM CDT): Takes Sumatriptan 50mg as needed. Reports using only 1-2 times per month at the most. Denies changing or worsening symptoms. Immunizations Immunization Administration Dates Next Due HepB Adult (Engerix-B, 20+ yrs, 3 dose series) 0 01/11/2020 Influenza IIV4 (Quadrivalent) 0.5mL (56338) 03/14,02/17/2013 TDAP (ADACEL) 10/02/2011 Td 05/28/2001 Family History Medical History Relation Name Comments Cancer Father testicular Lymphoma[Other] Father Lymphoma Testicular cancer[Other] Father Shanique ticular CA Ovarian cyst[Other] Mother Ovarian cyst Thyroid Disorder Maternal Aunt Cancer, Breast Negative Family History Relation Name Status Comments Father Alive Mother Alive Maternal Aunt Social History Tobacco Use Types Packs/Day Years Used Date Smoking Tobacco: Every Day Cigarettes 1 5 Alcohol Use Standard Drinks/Week Comments Yes 0.8 (1 standard drink = 0.6 oz p ure alcohol) very rare Comments No Sex and Gender Information Value Date Recorded Sex Assigned at Not on file Legal Sex Female 4:25 AM CDT Gender Identity Not on file Sexual Orientation Not on file 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 Not on file Not on file Last Filed Vital Signs Vital Sign Reading Time Taken Comments Blood Pressure 136/91 2015 11:11 AM CDT Pulse 95 2015 11:11 AM CDT Temperature 36.7 C (98.1 F) 2015 11:11 AM CDT Respiratory Rate 20 2015 11:11 AM CDT Oxygen Saturation 98% 10/01/2013 1:08 PM CDT Inhaled Oxygen Concentration - - Weight 92.8 kg (204 lb 9.6 oz) 04/04/2014 9:23 A M SUPPLY TECH Height 170.2 cm (5' 7) 04/04/2014 9:23 AM SUPPLY TECH Body Mass Index 32.04 04/04/2014 9:23 AM SUPPLY TECH Plan of Treatment Health Maintenance Due Date Last Done Comments Colon Cancer Screening Plan Due 1969 Hep C Screening (Preventive Services) 1969 HIV Screening (Preventive Services) 1985 Adult Preventive Visit 07/13/1987 Pneumococcal Vaccine 50+ Yrs (1 of 2 - PCV) 1988 Cervical Cancer Screening Due 05/08/2013 05/07/2013, 05/07/2013, 03/09/2012, Additional history exists Mammogram 09/29/2014 09/29/2013, 04/14 (Completed) Cholesterol 06/25/2018 06/25/2013, 06/09/2011, 05/28/2001 HepB Vaccine (2) 02/08/2020 01/11/2020 Zoster/Shingles Vaccine (2 of 2) 07/26/2020 05/31/2020 DTaP/Tdap/Td Vaccine (2 - Tdap) 10/01/2021 10/02/2011, 05/28/2001 COVID-19 Vaccine ( - season) 2023 Influenza Vaccine (Season Ended) 2024 05/31/2020, 03/18/2019, 01/30/2018, Additional history exists HepA Vaccine Aged Out No longer eligi ble based on patient's age to complete this topic Hib Vaccine Aged Out No longer eligi ble based on patient's age to complete this topic IPV (Polio) Vaccine Aged Out No longe r eligible based on patient's age to complete this topic MCV4 Vaccine Aged Out No longer eligi ble based on patient's age to complete this topic Meningococcal B Vaccine Aged Out No l onger eligible based on patient's age to complete this topic Procedures Procedure Name Priority Date/Time Associated Diagnosis Comments LIPID PANEL & DIRECT LDL (IF NEEDED) Routine 06/25/2013 11:08 AM CDT Impaired fasting glucose ANATOMICAL PATH LIQUID BASED Routine 05/07/2013 2:31 PM SUPPLY TECH from Last 3 Months or Most Recently Relevant to Health Maintenance Results * (ABNORMAL) Lipid Panel and Direct LDL(If Needed) (06/25/2013 11:08 AM CDT) Cholesterol 133 0 - 200 mg/dL HP CONVERSION Triglycerides 78 0 - 149 mg/dL HP CONVERSION HDL Cholesterol 34(L) >39 mg/dL HP CONVERSION Cholesterol/HDL Ratio Screen 3.9 HP CONVERSION LDL Calculated 83 19 - 130 mg/dL HP CONVERSION Hours Fasting 14.0 HP CONVERSION 06/25/2013 11:0 8 AM CDT 06/25/2013 2:39 PM CDT Narrative HP CONVERSION - 06/25/2013 3:11 PM CDT Performed at [facility], [address] [place] [address] us Josh Jones MD LAB_1 Final Result HP CONVERSION * Pap Smear (05/07/2013 2:31 PM SUPPLY TECH) 05/07/2013 2:31 PM SUPPLY TECH Narrative HP CONVERSION - 05/14/2013 12:01 PM SUPPLY TECH FINAL GYNECOLOGICAL CYTOLOGY REPORT Pathology #: [id number] Date Obtained: 05/07/2013 Date Received: 05/10/2013 INTERPRETATION/RESULTS: Negative for Intraepithelial Lesion or Malignancy SPECIMEN ADEQUACY: Satisfactory for Evaluation. Endocervical cells/transformation zone component present. Verified on 05/14/2013 by Devin NIELSEN MD (electronic signature) CLINICAL NOTES: Abnormal bleeding: No, LMP: 4 years ago., Hormonal [place]: No, Previous abnormal: yes, History of CA: labia 1990 LIQUID BASED PAP SMEAR SPECIMEN TYPE: CERVICAL WITH REFLEX TO HPV IF ASCUS PLEASE NOTE: The pap smear is a screening test designed to aid in the detection of cervical cancer and its precursor lesions. It is not a diagnostic procedure and should not be used as the sole means of detecting cervical cancer. Both false-positive and false-negative reports may occur. End of Report Allison Smyth MD LAB_1 Final Result HP CONVERSION from Last 3 Months or Most Recently Relevant to Health Maintenance Care Teams Government Affairs Researcher Relationship Specialty Start Date End Date Lyndsey Guzman MD [address] [place] [address] PCP - General Emergency Medicine 01/10/20
--- OUTSIDE RECORDS SUMMARY | 2024-08-19 20:56 | XMS_ITS | Continuity of Care Document ---
Author Organization [facility] the[facility] Address [address] [place] [address] [place] [address] Phone Care Team Providers Care Combat Systems Engineer Name Role Phone Will Celestino MARTINEZ Unavailable [...] tablet - Active Flonase 50 mcg/actuation Nasal [place] - Active dicyclomine 10 mg capsule - Active Procedures Procedure Date OFFICE CONSULTATION Advance Directives Directive Yes / No Effective Date File Name No Information Encounters Encounter Description Practice Location Reason(s) For Visit Diagnoses Date Provider Providers Copied on Encounter [facility], [address] [place] [address], [id number] , [place] [phone] [facility] [place] No Information 2 Will Celestino. [address] [facility] [place], [place], [id number] , [place]. tel:[phone] OFFICE CONSULTATION [facility], [address] [facility] [place], [place], [id number] , [place] [phone] [facility] Molly widespread pain (chief complaint) LumbagoCervicalgiaP ain in joint involving ankle and footMyalgia and myositis, unspecifiedPain in joint involving shoulder regionPain in joint involving pelvic region and thighDepressionHype rtension, Benign 3 Devin Dunnw. [address] [place]ett [place], [id number] , . tel:[phone] Referring Provider: Celestino Garcia, [address] [place], [address] . tel:[phone] Family History Family Member Type Diagnosis Age [...]
--- OUTSIDE RECORDS SUMMARY | 2024-08-19 20:57 | XMS_ITS | CCD ---
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
--- OUTSIDE RECORDS SUMMARY | 2024-08-19 20:57 | XMS_ITS | Continuity of Care Document ---
Author Organization [facility] Address [address] [place] [address] Phone Care Team Providers Care Sap Gatherer Name Role Phone [facility], [facility] Unavailable Unavai lable Allergies, Adverse Reactions, Alerts [...] PT Eval - Moderate Complexity Neuromuscular Re-education [facility] ASSMT/REASSESSMENT Audio Est Pt Eval Moderate Inject, Spine, Cerv/Thor, Epi/subarc w/i mg Guid Inject, Spine, Cerv/Thor, Epi/subarc w/i mg Guid ANES DRG/ASPIR CRV/THRC New Pt Eval Moderate Advance Directives Directive Yes / No Effective Date File Name No Information Encounters Encounter Description Practice Location Reason(s) For Visit Diagnoses Date Provider Providers Copied on Encounter [facility], [address], [place], [address], [place] tel:[phone] [facility] neck pain (chief complaint) Radiculopathy, cervical regionRadiculopathy , cervical region 5 [facility]. [address], [place], [place], [id number], [place]. tel:[phone] Referring Provider: Gildardo Arevalo, [address], [place], [address]. tel:[phone] [facility], [address], [place], [place], [id number], [place] tel:[phone] [facility] No Information 5 Mickey Ewing. [address], [place], [address], [place]. tel:[phone] Referring Provider: Gildardo Arevalo, [address], [place], [address]. tel:[phone] [facility], [address], [place], [place], [id number], [place] tel:[phone] [facility] No Information 5 Mickey Ewing. [address], [place], [address], [place]. tel:[phone] Referring Provider: Chung Boone, [address], [place], [address] . tel:[phone] Est Pt Eval Moderate [facility], [address], [place], [place], [id number], [place] tel:[phone] [facility] shoulder pain (chief complaint) Complex regional pain syndrome I of left upper limbRadiculopathy, cervical regionPain in left shoulderLow back painBody mass index (BMI) 27.0-27.9, adult Jul-05 17- 5 Maynard Olesya. [address], [place], [id number], [place]. tel:[phone] Referring Provider: Chung Boone, [address], [place], [address] . tel:[phone] Est Pt Eval [facility], [facility], [address], [place], [place], [id number], [place] tel:[phone] [facility] shoulder pain (chief complaint) Radiculopathy, cervical regionLow back painPain in left shoulderComplex regional pain syndrome I of left upper limbBody mass index (BMI) 27.0-27.9, adult Jun- 5 Ketola Deirdre. [address], [place], [id number], [place]. tel:[phone] Referring Provider: Chung Boone, [address], [place], [address] . tel:[phone] [facility], [address], [place], [address], [place] tel:[phone] [facility] Molly shoulder pain (chief complaint) Complex regional pain syndrome I of left upper limbNeuralgia and neuritis, unspecifiedComplex regional pain syndrome I of left upper limbNeuralgia and neuritis, unspecified 5 [facility]. [address], [place], [place], [id number], [place]. tel:[phone] Referring Provider: Gildardo Arevalo, [address], [place], [address]. tel:[phone] [facility], [address], [place], [place], [id number], [place] tel:[phone] [facility] No Information 5 Mickey Ewing. [address], [place], [address], [place]. tel:[phone] Referring Provider: Gildardo Arevalo, [address], [place], [address]. tel:[phone] [facility], [address], [place], [place], [id number], [place] tel:[phone] [facility] No Information 5 Veronica Barcenas. [address], [place], [place], [id number], [place]. tel:[phone] Referring Provider: Gildardo Arevalo, [address], [place], [address]. tel:[phone] [facility], [address], [place], [place], [id number], [place] tel:[phone] [facility] Complex regional pain syndrome I of left upper limbPain in left shoulderFibromyalgi a 5 Rei Ramos. [address], [place], [address], [place]. tel:[phone] Referring Provider: Chung Boone, [address], [place], [address] . tel:[phone] [facility], [address], [place], [place], [id number], [place] tel:[phone] [facility] Complex regional pain syndrome I of left upper limbPain disorder with related psychological factors 5 Stephon Copeland. [address], [place], [address], [place]. tel:[phone] Referring Provider: Chung Boone, [address] [facility] [address], [place], [address] . tel:[phone] Est Pt Eval Moderate [facility], [address], [place], [place], [id number], [place] tel:[phone] [facility] shoulder pain (chief complaint) Radiculopathy, cervical regionPain in left shoulderLow back painBody mass index (BMI) 27.0-27.9, adultComplex regional pain syndrome I of left upper limb 5 Ketola Deirdre. [address], [place], [place], [address], [place]. tel:[phone] Referring Provider: Chung Boone, [address] [facility] [address], [place], [address] . tel:[phone] [facility], [address], [place], [address], [place] tel:[phone] [facility] shoulder pain (chief complaint) Radiculopathy, cervical regionComplex regional pain syndrome I of left upper limbRadiculopathy, cervical region Apr- 5 [facility]. [address], [place], [place], [id number], [place]. tel:[phone] Referring Provider: Gildardo Arevalo [address], [place], [address]. tel:[phone] [facility], [address], [place], [place], [id number], [place] tel:[phone] [facility] No Information 5 Mickey Ewing. [address], [place], [address], [place]. tel:[phone] Referring Provider: Gildardo Arevalo, [address], [place], [address]. tel:[phone] [facility], [address], [place], [place], [id number], [place] tel:[phone] [facility] No Information 5 Spencer Lloyd. [address], [place], [address], [place]. tel:[phone] Referring Provider: Gildardo Arevalo, [address], [place], [address]. tel:[phone] New Pt Eval Moderate [facility], [facility], [address], [place], [place], [id number], [place] tel:[phone] [facility] shoulder pain (chief complaint) low back pain (chief complaint) Body mass index (BMI) 28.0-28.9, adultPain in left shoulderLow back painRadiculopathy, cervical region 5 Hanane Brooks. [address], [place], [address], [place]. tel:[phone] Referring Provider: Chung Boone, [address], [place], [address] . tel:[phone] Family History Family Member Type Diagnosis Age At Onset No Information Payers Payer name Insurance type Covered alliance party ID Douglas bonner(s) [employer]Medicaid MC [id number] Social History Type Description Quantity Date Captured [...] injection Related to Radiculopathy, cervical region - Continue physical therapy Rela patricio to Pain in left shoulder See above Related to Low b ack pain Procedures:- Prior a uthorization in progress for SCS trial *once approved, implant team will call to schedule Follow up:- Follow up 2 weeks after injection, telehealth ok Related to Complex regional pain syndrome I of left upper limb Procedures:- Ordered cervical epidural steroid injection at C3-4 Related to Radiculopathy, cervical region Giving encouragement to exercise Related to Body mass index [BMI] 27.0-27.9, adult Medications- Can tri al over the counter topical capsaicin Follow up:- Follow up with advanced practice provider as needed Related to Radiculopathy, cervical region See above Related to Low b ack pain See above Related to Pain in left shoulder Procedures:- Prior a ut in progress for SCS trial - Continue to monitor relief from stellate ganglion nerve block Related to Complex regional pain syndrome I of left upper limb Lifestyle education regarding di et Related to Body mass index [BMI] 27.0-27.9, adult - Follow up in clini c in 2-3 weeks to discuss results from today's injection Related to Complex regional pain syndrome I of left upper limb Procedures:- Prior a ut in progress for SCS trial > Order thoracic MRI at [facility]> Schedule behavioral health eval, telehealth ok > Schedule Physical Therapy - Schedule stellate ganglion nerve block *Find more information at [employer] Related to Complex regional pain syndrome I of left upper limb See above Related to Pain in left shoulder See above Related to Low b ack [...] you!- Schedule cervical epidural steroid injection*Talk to assistant front desk manager or call [phone] to schedule*With sedation, do not eat or drink 8hrs prior to procedure and must have hazmat 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
--- OUTSIDE RECORDS SUMMARY | 2024-08-19 20:57 | XMS_ITS | CCD ---
Author Name Interface, [id number] lity Address [address] [place] [address] Oncology Address [address] [place] [address] Reason for Visit Encounters Medications Problems Social History
--- OUTSIDE RECORDS SUMMARY | 2024-08-19 20:57 | XMS_ITS | Continuity of Care Document ---
Author Organization [facility] Address [address] [place] [address] [place] [address] Phone Care Team Providers Care Bailiff Name Role Phone Will Celestino MARTINEZ Unavailable [...] tablet - Active Flonase 50 mcg/actuation Nasal [place] - Active dicyclomine 10 mg capsule - Active Procedures Procedure Date OFFICE CONSULTATION Advance Directives Directive Yes / No Effective Date File Name No Information Encounters Encounter Description Practice Location Reason(s) For Visit Diagnoses Date Provider Providers Copied on Encounter [facility], [address] [place] [address], [id number] , [place] tel:[phone] [facility] [place] No Information 2 Will Celestino. [address] [facility] [place], [place], [id number] , [place]. tel:[phone] [facility], [address] [facility] [place], [id number] , [place] [phone] [facility] [place] widespread pain (chief complaint) LumbagoCervicalgiaP ain in joint involving ankle and footMyalgia and myositis, unspecifiedPain in joint involving shoulder regionPain in joint involving pelvic region and thighDepressionHype rtension, Benign 3 Devin Dunnw. [address] Pickett [place], [id number] , . tel:[phone] Referring Provider: Celestino Garcia, [address] [place], [address] . tel:[phone] Family History Family Member Type Diagnosis Age [...]
--- OUTSIDE RECORDS SUMMARY | 2024-08-19 20:57 | XMS_ITS | Clinical Summary ---
Author Organization [facility] Address [address] , [address] [place] [address] Phone Care Team Providers Care Veterinary Technician Name Role Phone Lara Montoya Conditions or Problems Problem Name Problem Code Onset Date Status Entry Date Provider Comment Standard Description Annotate Cerebellar stroke 276512861 (SNOMED CT) Active Kota Mckay MD Cerebellar stroke syndrome Radicular pain 16091985 (SNOMED CT) Active Kota Mckay MD Radicular pain Leg pain, right 149138508 (SNOMED CT) Active Kota Mckay MD Pain in right lower limb Low back pain 111926981 (SNOMED CT) Active Kota Mckay MD Low back pain NUMBNESS/TIN GLING 782.0 (ICD-9-CM) Active Damian Head MD Disturbance of skin sensation ARM WEAKNESS, DOMINANT SIDE G83.20 (ICD-10-CM) Active Damian Head MD 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 diclofenac sodium 40813039396 Kota Mckay MD JANUVIA 50 MG TABS sitagliptin phosphate 26597989681 Kota Mckay MD DULOXETINE HCL 60 MG CPEP duloxetine 83972417125 Kota Mckay MD VENTOLIN HFA 108 (90 Base) MCG/ACT AERS albuterol sulfate 01048599857 Kota Mckay MD DIAZEPAM 5 MG TABS diazepam 37995085518 Kota Mckay MD ESOMEPRAZOLE MAGNESIUM 20 MG CPDR esomeprazole magnesium 14744889189 Kota Mckay MD GABAPENTIN 300 MG CAPS gabapentin 58831317924 Kota Mckay MD TIZANIDINE HCL 4 MG TABS tizanidine 42358172805 Kota Mckay MD SPIRONOLACTONE 50 MG TABS spironolactone 49552651747 Kota Mckay MD METOPROLOL SUCCINATE ER 50 MG [id number] metoprolol succinate 17264996517 Kota Mckay MD Medications Administered No information [...] Detail Appointment 08:00 AM Yoselin Quiroz igel DNP,BULK COOLERS INSTALLER,AUDIO VISUAL ARTS DIRECTOR, [address], [address], [place], [address], Pending order Follow up [place] Pending order Follow up [place] Pending order Lipid Panel with LDL/HDL Ratio - fasting after midnight Pending order Patient Instruct ions Pending order Follow up as nee ded Pending order Patient Instruct ions Procedures Code Procedure Name Date Entry Date [facility]-[id number] Documentation of current medicatio ns ORDERS Patient Instructions ORDERS Lipid Panel with LDL /HDL Ratio - fasting after midnight [facility]-[id number] Documentation of current medicatio ns CPT-89037 Nerve Conduction 5-6 studies CPT-04690 EMG with NCS (5+ muscles) - 1 limb 04/24 ORDERS Follow up as needed ORDERS Patient Instructions CPT-28133 Motor NCS and Fwave x 2 2010 CPT-29953 Sensory NCS x 3 CPT-39601 EMG 1 limb Vital Signs No information available. Immunizations No information available. Advance Directives No information available.
--- OUTSIDE RECORDS SUMMARY | 2024-08-19 20:57 | XMS_ITS ---
Author Name Interface, [id number] lity Address [address] [place] [address], [place] [address] [facility] Address [facility] [address] [place] [address] Care Team Providers Care Wet Primer Powder Blender Name Role Phone Parul Alexandre Unavailable Unavailable Allergies and Adverse Reactions Medication/Group Name Reaction Severity Date latex 09/13/2020 [place] 09/13/2020 Nickel (substance) adhesive 09/13/2020 Plan Date Type Value 09/13/2020 APPOINTMENT MICROFILM EQUIPMENT INSPECTOR - BREAST IMPL ANT COMPLICATION - BREAST IMPLANT COMPLICATION Reason for Visit MICROFILM EQUIPMENT INSPECTOR - BREAST IMPLANT COMPLICATION - BREAST IMPLANT [...]
--- OUTSIDE RECORDS SUMMARY | 2024-08-19 20:58 | XMS_ITS ---
Author Name Interface, [id number] lity Address [address] [place] [address] [address] [address] [facility] Address [facility] [address] [place] [address] Care Team Providers Care Supervisor Advice Name Role Phone Parul Alexandre Unavailable Unavailable Allergies and Adverse Reactions Medication/Group Name Reaction Severity Date latex 09/13/2020 [place] 09/13/2020 Nickel (substance) adhesive 09/13/2020 Plan Date Type Value 09/13/2020 APPOINTMENT PREPARATORY TECHNICIAN - BREAST IMPL ANT COMPLICATION - BREAST IMPLANT COMPLICATION Reason for Visit PREPARATORY TECHNICIAN - BREAST IMPLANT COMPLICATION - BREAST IMPLANT [...]
--- OUTSIDE RECORDS SUMMARY | 2024-08-19 20:58 | XMS_ITS | Clinical Summary ---
Author Organization [facility] Address [address] [place] [address] Care Team Providers Care Sld Educational Aide Name Role Phone Eufemia Garcia PA-C Primary Care Provider [phone] Allergies Active Allergy Reactions Criticality Noted Date Comments Latex Rash 01/27/2024 Nickel Rash 01/27/2024 Medications fluticasone (FLOVENT HFA) 220 mcg/Actuation inhaler Inhale 1 Puff by mouth 2 times daily. 1 Inhaler 3 01/16/20 11 Active Additional Information Patient not taking.Informant: Patient's Recall, Reported on 03/24/2024 LORazepam (ATIVAN) 0.5 mg Tab Take 1 tablet by mouth every 6 hours if needed. 30 tablet 0 04/30/19 12 Active Additional Information Patient not taking.Informant: Patient's Recall, Reported on 03/24/2024 metoprolol succinate (TOPROL XL) 50 mg sustained-release tablet Take 50 mg by mouth once daily. Active albuterol HFA (PRO-AIR,VENTOLIN ,PROVENTIL) 90 mcg/actuation inhaler Inhale 1-2 Puffs by mouth 4 times daily if needed. Active valACYclovir (VALTREX) 500 mg tablet Take 500 mg by mouth 3 times daily. PRN only Active oxyCODONE-acetami nophen, 5-325 mg, (PERCOCET) 5-325 mg per tabletIndications :Lateral epicondylitis of left elbow Take 1-2 tablets by mouth every 4 hours if needed for Pain. Max acetaminophen dose: 4000mg in 24 hrs. 30 tablet 0 05/24/19 16 Active Additional Information Patient not taking.Reported on 03/24/2024 hydrOXYzine pamoate (VISTARIL) 25 mg capsuleIndication s:Lateral epicondylitis of left elbow Take 1 capsule by mouth every 8 hours if needed for Itching (nausea). 30 capsule 0 05/24/19 16 Active Additional Information Patient not taking.Reported on 03/24/2024 aspirin 81 mg cap Take 81 mg by mouth once daily. Active rosuvastatin (CRESTOR) 40 mg tablet Take 40 mg by mouth once daily. Active SITagliptin phosphate (Januvia) 50 mg tablet Take 50 mg by mouth once daily. Active montelukast sodium (SINGULAIR ORAL) Take by mouth. Activ e polyethylene glycoL (MIRALAX) 17 gram/scoop powder TAKE 4G BY MOUTH EVERY DAY ONCE DAILY 12/23/19 24 Active fluconazole (DIFLUCAN) 150 mg tablet 10/28/19 24 Active esomeprazole delayed release capsule (NEXIUM) 20 mg TAKE 1 CAPSULE BY MOUTH EVERY DAY FOR STOMACH ACID OR REFLUX Active docusate (COLACE) 100 mg capsule 12/23/19 24 Active cyclobenzaprine (FLEXERIL) 5 mg tablet TAKE 1 TO 2 TABLETS BY MOUTH EVERY 8 HOURS NEEDED Active semaglutide (OZEMPIC SUBQ) Inject subcutaneous. Active Active Problems Problem Noted Date Diagnosed Date Pain medication agreement 07/06/2010 Fibromyalgia 05/15/2010 INSOMNIA NEC 09/03/2000 DEPRESSION, NEUROTIC 09/03/2000 Immunizations Immunization Administration Dates Next Due Influenza, IIV3 (Age [...] pur e alcohol) occasionally once a year Social Connections Answer Date Recorded Do you often feel lonely or isolated from those around you? 0 03/24/2024 Financial Resource Strain Answer Date R ecorded Difficulty of Paying Living Expenses 3 03/24/2024 Difficulty of Paying Living Expenses Not on file 03/24/2024 Food Insecurity Answer Date Recorded Do you worry your food will run out before you are able to buy more? 1 03/24/2024 Transportation Needs Answer Date Record ed Does lack of transportation keep you from medica l appointments? 1 03/24/2024 Does lack of transportation keep you from work, meetings or getting things that you need? 1 03/24/2024 Housing Stability Answer Date Recorded What is your housing situation today? 1 03/24/2024 Utilities Answer Date Recorded Do you have trouble paying f or utilities (for example, heat, electricity, water, phone)? 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 Not on file Not on file Obstetrics History Para Term AB IAB SAB Ectopic Multiple Livin g Live Births 2 1 1 0 1 1 0 0 0 1 Date Outcome GA Total Labor Labor/2nd/3rd Weight Sex Type Anes PTL Evie A1 A5 Name Clin Term IAB Last Filed Vital Signs Vital Sign Reading Time Taken Comments Blood Pressure 120/75 03/24/2024 9:01 AM DRAW OPERATOR Pulse 81 03/24/2024 9:01 AM DRAW OPERATOR Temperature 36.9 C (98.5 F) 03/24/2024 9:01 AM DRAW OPERATOR Respiratory Rate 16 03/24/2024 9:01 AM DRAW OPERATOR Oxygen Saturation 98% 03/24/2024 9:01 AM DRAW OPERATOR Inhaled Oxygen Concentration - - Weight 81.2 kg (179 lb) 03/24/2024 9:01 AM DRAW OPERATOR Height 167.6 cm (5' 6) 03/24/2024 9:01 AM DRAW OPERATOR Body Mass Index 28.89 03/24/2024 9:01 AM DRAW OPERATOR Plan of Treatment Health Maintenance Due Date Last Done Comments Tdap 1980 Depression screening for age 12+ 1981 HIV for age 15-65 1984 Hepatitis C screening for ag e 18-79 07/13/1987 Colonoscopy through age 75 2014 Mammogram for age 45-75 2014 Lipids for age 45-75 05/22/2015 05/22/2010 Tetanus booster 01/12/2018 01/13/2008 Pneumococcal series for age 50+ (1 of 1 - PCV) 07/13/2019 Zoster (shingles) series for age 50+ (1 of 2) 07/13/2019 Pap test for age 21-65 05/31/2023 , 05/31/2020, 04/29/2017, Additional history exists COVID-19 vaccine series ( - 2023- season) 2023 Influenza Vaccine (Season Ended) 2024 01/16/20, 04/27/2010 BMI (ht and wt on same day) for age 18+ 03/24/2025 03/24/2024, 01/27/2024 Medical Devices Implanted Type Area Operating Theatre Technician Device Identifier Shelf Expiration Date Model / Serial / Lot Ancr Sut 2.4x8.5mm Suturetak Micro W/2-0 [employer] - [id number] Implanted:Qty: 1 on 05/24/2015 by Jon Mcpherson MD at [facility] Left: Elbow [employer] 01/11/2017 [id number] CNF # / / [id number] Procedures Procedure Name Priority Date/Time Associated Diagnosis Comments ACCOUNTS RECEIVABLE ANALYST THIN PREP PAP SCREEN IMAGED Routine 05/31/2020 2:30 PM DRAW OPERATOR LIPID PANEL W REFLEX MEASURED LDL Routine 05/22/2010 10:05 AM DRAW OPERATOR Screening for lipoid disorders from Last 3 Months or Most Recently Relevant to Health Maintenance Results * ACCOUNTS RECEIVABLE ANALYST THIN PREP PAP SCREEN IMAGED (05/31/2020 2:30 PM DRAW OPERATOR) Case Report Gynecologic Cytology Report Case: [id number] Authorizing Provider: Unknown, Doctor Collected: 05/31/2020 1430 Ordering Location: [facility] Received: 06/02/2020 0811 First Screen: Denzel Romero Specimen: ACCOUNTS RECEIVABLE ANALYST ThinPrep Vial Screening, Cervical/Vaginal 06/10/2020 1:27 PM DRAW OPERATOR [facility] INTERPRETATION/ RESULT NEGATIVE FOR INTRAEPITHELIAL LESION OR MALIGNANCY (NIL) (none) 06/10/2020 1:27 PM DRAW OPERATOR [facility] at 1327 DRAW OPERATOR SPECIMEN ADEQUACY Satisfactory for evaluation Endocervical component present 06/10/2020 1:27 PM [facility] HPV REQUEST HPV and PAP 06/10/2020 1:27 PM [facility] Menstrual Status 06/10/2020 1:27 PM DRAW OPERATOR [facility] Comment:Menopause Additional Information 06/10/2020 1:27 PM [facility] Comment: Interpreted at [facility] - [address], [place] [address] Automated Review Successful 06/10/2020 1:27 PM [facility] Comment:Specimen processed s uccessfully by automated humanities department chair device, ThinPrep Imaging System, [email or web address] ANCILLARY TESTING ACCOUNTS RECEIVABLE ANALYST HPV Ordered, Please see separate report 06/10/2020 1:27 PM [facility] Note The pap test is a screening technique, not a diagnostic procedure. It is used primarily to screen for squamous cancers and precursor lesions. Published studies have shown that it is subject to both false negative and false positive results. The pap test should not be used as the sole means to diagnose or exclude pre-malignant and malignant lesions. 06/10/2020 1:27 PM [facility] Other (Cervical/Vagina l) 05/31/2020 2:30 PM DRAW OPERATOR 06/02/2020 8:11 AM DRAW OPERATOR us Doctor Unknown PATHOLOGY/CYTOLOGY Final Result [facility] [address] [place] [address], [place] * (ABNORMAL) LIPID PANEL W REFLEX MEASURED LDL (05/22/2010 10:05 AM DRAW OPERATOR) CHOLESTEROL,TOTAL 110 110 - 199 mg/dL [facility] TRIGLYCERIDES 38(L) 40 - 149 mg/dL [facility] HDL CHOLESTEROL 43 >40 mg/dL [facility] CHOL/HDL RATIO 2.56 <4.51 [facility] LDL CHOLESTEROL 59 <131 mg/dL [facility] PATIENT STATUS Fasting RAÚLROSA MARIA Holly [facility] Blood specimen (specimen) BLOOD SPECIMEN / Unknown 05/22/2010 10:05 AM DRAW OPERATOR 05/22/2010 9:33 AM DRAW OPERATOR us Norberto Nicholson MD CHEMISTRY Final Res ult [facility] [place]NAL ZIP [address] [address] from Last 3 Months or Most Recently Relevant to Health Maintenance Insurance [facility] Advance Directives * Full Code (Latest Code Status on File) Date Activated Date Inactivated Comments 05/24/2015 1:33 PM 05/24/2015 5:10 PM * Full Code Date Activated Date Inactivated Comments 05/24/2015 10:17 AM 05/24/2015 1:33 PM Care Teams Sld Educational Aide Relationship Specialty Start Date End Date Eufemia Garcia PA-C [address] [place] [address] PCP - General Emergency Medicine 01/27/24
--- OUTSIDE RECORDS SUMMARY | 2024-08-19 20:58 | XMS_ITS | Encounter Summary ---
Author Organization [facility] Address [address] [place] [address] Care Team Providers Care Therapeutic Recreation Leader Name Role Phone Devin Britt DO Primary Care Provider [phone] Damian Dowell MD Unavailable [phone] Collin Anthony MD Unavailable Unavailable Frw, None Primary Care Provider Unavailabl e Allison Smyth Primary Care Provider [phone] Lyndsey Guzman MD Primary Care Provider + [phone] Carine Smallwood MD Unavailable [phone] Vee Levy-C Unavailable [phone] Carine Smallwood MD Unavailable [phone] Vee Levy-C Unavailable [phone] Carine Smallwood MD Unavailable [phone] Vee Levy-C Unavailable [phone] Carine Smallwood MD Unavailable [phone] Vee Levy-C Unavailable [phone] Carine Smallwood MD Unavailable [phone] Vee Levy-C Unavailable [phone] Carine Smallwood MD Unavailable [phone] Vee Levy PA-C Unavailable [phone] Carine Smallwood MD Unavailable Vee Levy PA-C Unavailable Reason for Visit * Reason Onset Date Comments Refill Request 03/07/2006 zaida fine Encounter Details Date Type Department Care Team (Late st Contact Info) Description 03/07/2006 Refill [facility] [address] [place] [address] Collin Anthony MD Refill Request (zaida anthony) Social History Tobacco Use Types Packs/Day Years Used Date Smoking Tobacco: Every Day Cigarettes 1 10 Alcohol Use Standard Drinks/Week Comments Yes 0 (1 standard drink = 0.6 oz pur e alcohol) Social Comments No Sex and Gender Information Value Date Recorded Sex Assigned at Not on file Legal Sex Female 3:22 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 ICAL ACCOUNT MANAGER documented in this encounter Plan of Treatment Not on file documented as of this encounter Visit Diagnoses Not on filedocumented in this encounter Care Teams Therapeutic Recreation Leader Relationship Specialty Start Date End Date Devin Britt DO [address] [place] [address] PCP - General 04/18/05 09/04/11 Damian Dowell MD [address] [place] [address] PCP - Surgery 05/08/04 03/14/14 Collin Anthony MD [address] [place] [address] PCP - Orthopaedics 01/23/06 02/19/18 Frw, None PCP - General Family Practice 09/05/11 09/18/13 FernandohaSabihalatisha PCP - General Family Practice 09/19/13 08/27/20 Lyndsey Guzman MD [facility] [address] [place] [address] PCP - General Family Medicine 08/28/20 Carine Smallwood MD [address] [place] [address] Assigned Surgical Provider 09/17/20 Vee Levy PA-C [address] [place] [address] Assigned Surgical Provider 10/29/20 Carine Smallwood MD [address] [place] [address] Assigned Surgical Provider 11/05/20 Vee Levy PA-C [address] [place] [address] Assigned Surgical Provider 12/03/20 Carine Smallwood MD [address] [place] [address] Assigned Surgical Provider 12/31/20 Vee Levy PA-C [address] [place] [address] Assigned Surgical Provider 03/11/21 Carine Smallwood MD [address] [place] [address] Assigned Surgical Provider 02/25/21 Vee Levy PA-C [address] [place] [address] Assigned Surgical Provider 02/11/21 Carine Smallwood MD [address] [place] [address] Assigned Surgical Provider 03/25/2104/14/21 Vee Levy PA-C [address] [place] [address] Assigned Surgical Provider 04/15/2104/21/21 Carine Smallwood MD [address] [place] [address] Assigned Surgical Provider 05/27/2112/14/21 Vee Levy PA-C [address] [place] [address] Assigned Surgical Provider 05/20/2104/04 Carine Smallwood MD [address] [place] [address] Assigned Surgical Provider 04/22/2105/19/21 Vee Levy PA-C [address] [place] [address] Assigned Surgical Provider 12/15/21 documented as of this encounter
== END 2024-08-19 21:09 | disposition home or self-care (01) ==
PROVIDERS: Emergency Provider Student in an Organized Health Care Education/Training Program; PCP Physician Assistant Medical
DX: K59.09 Other constipation (principal); M25.551 Pain in right hip
CPT/HCPCS: 36415; 74177; 80048; 82565; 85025; 99284; 99285; Q9967

== ENCOUNTER 2024-09-21 07:30 | Outpatient (RCR) | payer MEDICAID, SELFPAY ==
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
== END 2024-12-01 07:13 | disposition home or self-care (01) ==
PROVIDERS: PCP Physician Assistant Medical; Visit Provider Physician Assistant Medical
DX: M25.551 Pain in right hip (principal); M25.552 Pain in left hip; M25.512 Pain in left shoulder; G89.29 Other chronic pain; M62.81 Muscle weakness (generalized); I63.9 Cerebral infarction, unspecified; R20.2 Paresthesia of skin; M76.891 Other specified enthesopathies of right lower limb, excluding foot; M48.01 Spinal stenosis, occipito-atlanto-axial region; S46.812D Strain of other muscles, fascia and tendons at shoulder and upper arm level, left arm, subsequent encounter; M70.61 Trochanteric bursitis, right hip; M16.11 Unilateral primary osteoarthritis, right hip; Z51.89 Encounter for other specified aftercare
CPT/HCPCS: 36415; 74177; 80048; 85025; 97032; 97035; 97110; 97140; 97162; 97535; 99284; 99285; Q9967

== ENCOUNTER 2024-11-10 13:46 | Outpatient (CLI) | payer MEDICAID, SELFPAY | END 2024-11-10 13:47 | disposition home or self-care (01) | LOC: LKVREF 13:47 | PROVIDERS: PCP Physician Assistant Medical; Visit Provider Emergency Medicine | DX: I10 Essential (primary) hypertension (principal) | CPT/HCPCS: 80048 ==

== ENCOUNTER 2024-11-30 10:27 | Outpatient (CLI) | payer MEDICAID, SELFPAY ==
--- NOTE | 2024-11-30 11:00 | CRLHL7_ITS ---
For Patients: As a result of the Century Cures Act, medical imaging exams and procedure reports are released immediately into your electronic medical record. You may view this report before your referring provider. If you have questions, please contact your health care provider. INDICATION: Lung cancer screening. Significant smoking history. TECHNIQUE: Low-dose volumetric helical scanning of the thorax was performed without IV contrast material. Coronal and sagittal reconstructions were obtained. COMPARISON: Chest CT of 12/12/2023 and low-dose chest CT of 11/27/2022 FINDINGS: No new or enlarged pulmonary nodule is identified. A noncalcified 8 mm nodular density in the medial aspect of the right upper lobe is demonstrated on image 33 of series 2 and is stable dating back to 11/27/2022. The lungs are clear. There is no significant airway abnormality. No pleural effusion is demonstrated. There is no mediastinal or hilar lymph adenopathy. Postop changes of left thyroid lobectomy are again noted. The heart size is normal. Calcified coronary arterial plaque is demonstrated. Images of the upper abdomen are unremarkable except for postop changes of cholecystectomy IMPRESSION: 1. Negative for the purpose of lung cancer screening. Lung-RADS CATEGORY 2: BENIGN APPEARANCE OR BEHAVIOR: Continue annual screening with low-dose chest CT in 12 months. 2. Coronary artery disease. 3. Post left thyroid lobectomy and cholecystectomy. Please note that all CT scans at this facility use dose modulation, iterative reconstruction, and/or weight-based dosing when appropriate to reduce radiation dose to as low as reasonably achievable. Dictated by Damian Nguyen MD @ 12/02/2024 9:10:42 AM (Electronically Signed)
== END 2024-11-30 10:28 | disposition home or self-care (01) ==
LOC: CT 10:28
PROVIDERS: PCP Physician Assistant Medical; Visit Provider Physician Assistant Medical
DX: Z12.2 Encounter for screening for malignant neoplasm of respiratory organs (principal); I25.10 Atherosclerotic heart disease of native coronary artery without angina pectoris; Z72.0 Tobacco use
CPT/HCPCS: 71271

== ENCOUNTER 2024-12-22 11:30 | Outpatient (CLI) | payer MEDICAID, SELFPAY | END 2024-12-22 11:31 | disposition home or self-care (01) | PROVIDERS: PCP Physician Assistant Medical; Visit Provider Physician Assistant Medical | DX: Z01.818 Encounter for other preprocedural examination (principal); Z01.84 Encounter for antibody response examination | CPT/HCPCS: 86480; 86735; 86762; 86765; 86787; 87081 ==

== ENCOUNTER 2025-01-10 10:26 | Outpatient (CLI) | payer MEDICAID, SELFPAY | END 2025-01-10 10:27 | disposition home or self-care (01) | LOC: NFLDREF 01-15 03:13 | PROVIDERS: PCP Physician Assistant Medical; Referring Provider Physician Assistant Medical; Visit Provider Physician Assistant Medical | DX: Z11.1 Encounter for screening for respiratory tuberculosis (principal) | CPT/HCPCS: 86480 ==